=== PATIENT | female | born 1950 | race African-American/Black ===

== ENCOUNTER 2020-03-25 10:47 | Outpatient (REF) | payer OTHER, SELFPAY ==
--- NOTE | 2020-03-25 10:57 | XR_ITS ---
EXAMINATION: XR ELBOW, RIGHT CLINICAL INFORMATION: Fall. COMPARISON: None. TECHNIQUE: AP, lateral, and oblique views of the right elbow. FINDINGS: No visible acute fracture or dislocation. Joint spaces are maintained. Mild spurring from the medial humeral epicondyle. No significant joint effusion. XR/XR elbow RT min 3V IMPRESSION: No radiographic evidence of discrete acute fracture.
[2020-03-25 15:06] LABS: Alanine Aminotransferase 26 U/L (0-31); Albumin Level 4.7 g/dL (3.5-5.0); Alkaline Phosphatase 120 U/L (39-117); Anion Gap 14 (12-20); Aspartate Amino Transferase 25 U/L (5-31); Bilirubin Total 0.5 mg/dL (0.0-1.0); Blood Urea Nitrogen 10 mg/dL (9-16); Calcium 8.6 mg/dL (8.4-10.2); Carbon Dioxide 28 mmol/L (22-29); Chloride 104 mmol/L (96-108); Estimated Glomerular Filt Rate > 60; Glucose Random 82 mg/dL (60-115); Potassium 4.7 mmol/l (3.3-5.1); Sodium 141 mmol/L (135-145); Total Protein 7.5 g/dL (6.5-8.0)
[2020-03-25 15:20] LABS: TSH reflex Free T4 0.11 mIU/mL (0.32-4.0)
[2020-03-25 15:53] LABS: Free T4 (Free Thyroxine) 1.41 ng/dL (0.71-1.85)
== END 2020-03-25 10:48 | disposition home or self-care (01) ==
LOC: HO.HMGCLDS 10:47
PROVIDERS: PCP Nurse Practitioner Family; Visit Provider Nurse Practitioner Family
DX: E03.9 Hypothyroidism, unspecified (principal); W19.XXXA Unspecified fall, initial encounter
CPT/HCPCS: 73080; 80053; 84439; 84443

== ENCOUNTER 2020-06-05 10:11 | Outpatient (REF) | payer OTHER, SELFPAY ==
[2020-06-05 12:24] LABS: TSH reflex Free T4 0.29 uIU/mL (0.32-4.0)
[2020-06-05 13:09] LABS: Free T4 (Free Thyroxine) 0.89 ng/dL (0.71-1.85)
== END 2020-06-05 10:12 | disposition home or self-care (01) ==
LOC: HO.HMGCLDS 10:11
PROVIDERS: PCP Nurse Practitioner Family; Visit Provider Nurse Practitioner Family
DX: E03.9 Hypothyroidism, unspecified (principal)
CPT/HCPCS: 36415; 84439; 84443

== ENCOUNTER 2020-06-17 13:57 | Outpatient (REF) | payer OTHER, SELFPAY ==
--- NOTE | ~2020-06-17 | XR_ITS ---
EXAMINATION: XR CHEST CLINICAL INFORMATION: R06.02 - Shortness of breath COMPARISON: None TECHNIQUE: 2 views of the chest were obtained. FINDINGS: The heart is within limits of normal size. There is even distribution pulmonary vascularity with coarsening of the bronchiolar markings. The lateral view suggests mild blunting of the posterior costophrenic sulci, suspicious for trace effusion. The lateral costophrenic sulci are clear. There is no lobar or segmental airspace consolidation. The hilar and mediastinal contours are unremarkable. Bony structures show plate and screws overlying lower cervical spine consistent with prior anterior cervical fusion. XR/XR chest 2V IMPRESSION: 1. Even distribution vascularity with mild coarsening bronchovascular markings and borderline effusions. Likely mild pulmonary venous congestion. 2. No airspace consolidation or groundglass opacity.
[2020-06-17 16:31] LABS: MANUAL DIFF FLAG NO
[2020-06-17 16:34] LABS: Basophils Percent Auto 0.1 % (0-2); Eosinophils Absolute Auto 0.4 X10*3/uL (0.0-0.4); Eosinophils Percent Auto 2.1 % (0-4); Hematocrit 36.5 % (37-47); Hemoglobin 11.5 g/dl (12.0-16.0); Imm Gran Abs Auto 0.16 X10*3/uL (0.00-0.03); Imm Gran Pct Auto 0.8 % (0.0-0.4); Lymphocytes Absolute Auto 2.7 X10*3/uL (1.2-4.9); Lymphocytes Percent Auto 13.7 % (20-40); Mean Corpuscular HGB Conc 31.5 g/dl (31.0-35.0); Mean Corpuscular Hemoglobin 27.1 pg (27.0-33.0); Mean Corpuscular Volume 86.1 fL (80-98); Mean Platelet Volume 9.9 fL (9.4-12.3); Monocytes Absolute Auto 0.8 X10*3/uL (0.1-1.2); Monocytes Percent Auto 4.2 % (2-11); Neutrophils Absolute Auto 15.5 X10*3/uL (2.0-8.3); Neutrophils Percent Auto 79.1 % (45-73); Platelet Count 302 X10*3/uL (160-400); Red Blood Count 4.24 X10*6/uL (4.20-5.50); Red Cell Distribution Width 14.3 % (11.0-16.0); White Blood Count 19.6 X10*3/uL (4.8-10.8)
[2020-06-17 16:47] LABS: D Dimer 451 NG/ML
[2020-06-17 16:58] LABS: Anion Gap 13 (12-20); Blood Urea Nitrogen 14 mg/dL (9-16); Calcium 8.5 mg/dL (8.4-10.2); Carbon Dioxide 25 mmol/L (22-29); Chloride 106 mmol/L (96-108); Estimated Glomerular Filt Rate > 60; Glucose Random 97 mg/dL (60-115); Sodium 140 mmol/L (135-145)
[2020-06-17 17:02] LABS: B Type Natriuretic Peptide 37 pg/mL (<100); Troponin-I High Sensitivity < 3.5 ng/L (<3.5-17.0)
== END 2020-06-17 13:58 | disposition home or self-care (01) ==
LOC: HO.HMGCX 13:57
PROVIDERS: PCP Nurse Practitioner Family; Visit Provider Nurse Practitioner Family
DX: R06.02 Shortness of breath (principal)
CPT/HCPCS: 36415; 71046; 80048; 83880; 84484; 85025; 85379

== ENCOUNTER 2020-06-17 13:57 | Outpatient (REF) | payer OTHER, SELFPAY | END 2020-06-17 13:58 | disposition home or self-care (01) | LOC: HO.LAB 13:57 | PROVIDERS: Visit Provider Nurse Practitioner Family | DX: R06.02 Shortness of breath (principal); Z20.822 Contact with and (suspected) exposure to COVID-19 | CPT/HCPCS: 36415; U0003; U0005 ==

== ENCOUNTER 2020-06-28 07:47 | Outpatient (REF) | payer MEDICARE, SELFPAY ==
--- NOTE | ~2020-06-28 | MM_ITS ---
EXAMINATION: MM SCREENING DIGITAL BREAST TOMOSYNTHESIS, BILATERAL CLINICAL INFORMATION: Screening. Asymptomatic. The lifetime risk of breast cancer based on the Tyrer-Cuzick Model is 5.1%. COMPARISON: Mammography: August 28, 2019 TECHNIQUE: Digital breast tomosynthesis is performed in both the craniocaudal and mediolateral oblique views along with computer-aided detection (CAD). Synthesized 2D images are generated from the tomosynthesis. FINDINGS: The breasts are heterogeneously dense, which may obscure small masses (ACR BI-RADS breast composition Category c). There are no significant masses, abnormal calcifications, or other abnormalities. MM/MM tomosynthesis screening BI IMPRESSION: There are no significant changes from prior study. ASSESSMENT: BI-RADS 1: Negative RECOMMENDATION: Routine annual mammography screening. This patient's information was entered into a reminder system with a target due date for their next mammogram.
== END 2020-06-28 07:48 | disposition home or self-care (01) ==
LOC: HO.MAMMO 07:47
PROVIDERS: PCP Nurse Practitioner Family; Visit Provider Nurse Practitioner Family
DX: Z12.31 Encounter for screening mammogram for malignant neoplasm of breast (principal)
CPT/HCPCS: 77063; 77067

== ENCOUNTER 2020-07-15 09:00 | Outpatient (REF) | payer MEDICARE, SELFPAY ==
[2020-07-15 11:34] LABS: MANUAL DIFF FLAG NO
[2020-07-15 11:50] LABS: Eosinophils Absolute Auto 0.2 X10*3/uL (0.0-0.4); Eosinophils Percent Auto 3.2 % (0-4); Hematocrit 40.3 % (37-47); Hemoglobin 12.2 g/dl (12.0-16.0); Imm Gran Abs Auto 0.01 X10*3/uL (0.00-0.03); Imm Gran Pct Auto 0.2 % (0.0-0.4); Lymphocytes Absolute Auto 1.9 X10*3/uL (1.2-4.9); Lymphocytes Percent Auto 36.1 % (20-40); Mean Corpuscular HGB Conc 30.3 g/dl (31.0-35.0); Mean Corpuscular Hemoglobin 26.9 pg (27.0-33.0); Mean Platelet Volume 9.8 fL (9.4-12.3); Monocytes Absolute Auto 0.5 X10*3/uL (0.1-1.2); Monocytes Percent Auto 9.3 % (2-11); Neutrophils Absolute Auto 2.7 X10*3/uL (2.0-8.3); Neutrophils Percent Auto 51.2 % (45-73); Platelet Count 263 X10*3/uL (160-400); Red Blood Count 4.53 X10*6/uL (4.20-5.50); White Blood Count 5.3 X10*3/uL (4.8-10.8)
[2020-07-15 12:24] LABS: Alanine Aminotransferase 11 U/L (0-31); Albumin Level 4.1 g/dL (3.5-5.0); Alkaline Phosphatase 91 U/L (39-117); Anion Gap 17 (12-20); Aspartate Amino Transferase 14 U/L (5-31); Bilirubin Total 0.3 mg/dL (0.0-1.0); Blood Urea Nitrogen 11 mg/dL (9-16); Calcium 9.1 mg/dL (8.4-10.2); Carbon Dioxide 21 mmol/L (22-29); Chloride 106 mmol/L (96-108); Estimated Glomerular Filt Rate > 60; Glucose Random 120 mg/dL (60-115); Potassium 4.3 mmol/L (3.3-5.1); Sodium 140 mmol/L (135-145); Total Protein 6.9 g/dL (6.5-8.0)
== END 2020-07-15 09:01 | disposition home or self-care (01) ==
LOC: HO.HMGCLDS 09:00
PROVIDERS: PCP Nurse Practitioner Family; Visit Provider Nurse Practitioner Family
DX: Z01.818 Encounter for other preprocedural examination (principal)
CPT/HCPCS: 36415; 80053; 85025

== ENCOUNTER 2020-12-03 08:28 | Outpatient (REF) | payer OTHER, SELFPAY ==
[2020-12-03 11:52] LABS: Glucose Urine UA NEG (NEG); Leukocyte Esterase Urine 2+ (NEG); Nitrite Urine NEG (NEG); UACC Culture Trigger YES; Urine Blood NEG (NEG); Urine Ketones NEG (NEG); Urine Protein NEG (NEG-TRACE)
[2020-12-03 12:03] LABS: Appearance Urine HAZY; Color Urine YELLOW
[2020-12-03 12:19] LABS: Alanine Aminotransferase 15 U/L (0-31); Albumin Level 4.3 g/dL (3.5-5.0); Alkaline Phosphatase 94 U/L (39-117); Anion Gap 13 (12-20); Aspartate Amino Transferase 19 U/L (5-31); Bilirubin Total 0.4 mg/dL (0.0-1.0); Blood Urea Nitrogen 9 mg/dL (9-16); Calcium 9.5 mg/dL (8.4-10.2); Carbon Dioxide 28 mmol/L (22-29); Chloride 106 mmol/L (96-108); Cholesterol 185 mg/dL; Estimated Glomerular Filt Rate > 60; Glucose Fasting 101 mg/dL (60-99); HDL Cholesterol 43 mg/dL; LDL Cholesterol Calculated 126 mg/dl; Potassium 4.5 mmol/L (3.3-5.1); Sodium 142 mmol/L (135-145); Total Protein 6.8 g/dL (6.5-8.0); Triglycerides 81 mg/dL
[2020-12-03 12:27] LABS: Bacteria Urine 1+ /LPF; RBC Urine 0 /HPF (0); Squamous Epithelial Cell Urine 1+ /LPF
[2020-12-03 12:48] LABS: TSH reflex Free T4 0.44 uIU/mL (0.32-4.0)
== END 2020-12-03 08:29 | disposition home or self-care (01) ==
LOC: HO.HMGCLDS 08:28
PROVIDERS: PCP Nurse Practitioner Family; Visit Provider Nurse Practitioner Family
DX: Z00.00 Encounter for general adult medical examination without abnormal findings (principal)
CPT/HCPCS: 36415; 80053; 80061; 81001; 81003; 84443; 87086; 87147

== ENCOUNTER 2021-06-19 16:30 | Outpatient (REF) | payer MEDICARE, SELFPAY | END 2021-06-19 16:31 | disposition home or self-care (01) | LOC: HO.LNP 16:30 | PROVIDERS: Visit Provider Nurse Practitioner Family | DX: R30.0 Dysuria (principal) | CPT/HCPCS: 87086 ==

== ENCOUNTER 2021-08-14 10:58 | Outpatient (REF) | payer OTHER, SELFPAY ==
--- NOTE | ~2021-08-14 | XR_ITS ---
EXAMINATION: XR LUMBOSACRAL SPINE CLINICAL INFORMATION: Low back pain. COMPARISON: None TECHNIQUE: Three views of the lumbosacral spine. FINDINGS: The vertebral bodies and posterior elements are normal. The disc spaces are preserved and the vertebral alignment is normal. The paraspinal soft tissues are normal. XR/XR lumbar spine 2-3V IMPRESSION: Unremarkable lumbar spine.
--- NOTE | ~2021-08-14 | XR_ITS ---
EXAMINATION: XR SHOULDER, RIGHT CLINICAL INFORMATION: Right shoulder pain. COMPARISON: None TECHNIQUE: AP external rotation, Grashey, scapular Y, and axillary views of the right shoulder. FINDINGS: There is mild widening of the right acromio clavicular joint space with nonacute deformity of the distal right clavicle. There is normal alignment. The right glenohumeral joint is intact. The soft tissues are unremarkable. XR/XR shoulder RT min 2V IMPRESSION: Right acromioclavicular findings may be postsurgical with resection of the distal right clavicle and associated joint space widening. Grade 1 separation of indeterminate age cannot be excluded. Correlate with patient history and physical exam.
== END 2021-08-14 10:59 | disposition home or self-care (01) ==
LOC: HO.HMGCX 10:58
PROVIDERS: PCP Nurse Practitioner Family; Visit Provider Nurse Practitioner Family
DX: M54.50 Low back pain, unspecified (principal); M25.511 Pain in right shoulder; M79.606 Pain in leg, unspecified
CPT/HCPCS: 72100; 73030

== ENCOUNTER → 2021-11-10 09:29 | Outpatient (BNVA) | payer OTHER, SELFPAY | PROVIDERS: PCP Nurse Practitioner Family; Visit Provider Orthopaedic Surgery | DX: M54.12 Radiculopathy, cervical region (principal) | CPT/HCPCS: 99202 ==

== ENCOUNTER 2021-12-09 08:53 | Outpatient (REF) | payer OTHER, SELFPAY ==
--- NOTE | ~2021-12-09 | MM_ITS ---
EXAMINATION: MM SCREENING DIGITAL BREAST TOMOSYNTHESIS, BILATERAL CLINICAL INFORMATION: Screening. Asymptomatic. The lifetime risk of breast cancer based on the Tyrer-Cuzick Model is 2.5%. COMPARISON: Mammography: June 28, 2020 and June 28, 2019 TECHNIQUE: Digital breast tomosynthesis is performed in both the craniocaudal and mediolateral oblique views along with computer-aided detection (CAD). Synthesized 2D images are generated from the tomosynthesis. FINDINGS: The breasts are heterogeneously dense, which may obscure small masses (ACR BI-RADS breast composition Category c). There are no new significant masses, abnormal calcifications, or other abnormalities. On craniocaudal view there is again noted to be a circumscribed density about the central lateral aspect of the left breast. MM/MM tomosynthesis screening BI IMPRESSION: No significant changes from prior exam. ASSESSMENT: BI-RADS 2: Benign RECOMMENDATION: Routine annual mammography screening. This patient's information was entered into a reminder system with a target due date for their next mammogram.
== END 2021-12-09 08:54 | disposition home or self-care (01) ==
LOC: HO.MAMMO 08:53
PROVIDERS: PCP Nurse Practitioner Family; Visit Provider Nurse Practitioner Family
DX: Z12.31 Encounter for screening mammogram for malignant neoplasm of breast (principal)
CPT/HCPCS: 77063; 77067

== ENCOUNTER 2021-12-12 08:21 | Outpatient (REF) | payer OTHER, SELFPAY ==
[2021-12-12 11:15] LABS: Appearance Urine Clear; Color Urine Yellow; Glucose Urine UA Negative (Negative); Leukocyte Esterase Urine Trace (Negative); Nitrite Urine Negative (Negative); PH 7.5 (5.0-9.0); Urine Blood Negative (Negative); Urine Ketones Negative (Negative); Urine Protein Negative (Neg-Trace)
[2021-12-12 11:19] LABS: Bacteria Urine None Seen (None Seen); Hyaline Casts Urine 0-2 /LPF (0-2); Squamous Epithelial Cell Urine 0-2 /HPF (0-2); WBC Urine 0-5 /HPF (0-5)
[2021-12-12 11:26] LABS: MANUAL DIFF FLAG NO
[2021-12-12 11:31] LABS: Basophils Percent Auto 0.2 % (0-2); Eosinophils Absolute Auto 0.5 X10*3/uL (0.0-0.4); Eosinophils Percent Auto 7.6 % (0-4); Hematocrit 39.1 % (37.0-47.0); Hemoglobin 12.3 g/dl (12.0-16.0); Imm Gran Abs Auto 0.01 X10*3/uL (0.00-0.03); Imm Gran Pct Auto 0.2 % (0.0-0.4); Lymphocytes Absolute Auto 2.4 X10*3/uL (1.2-4.9); Lymphocytes Percent Auto 39.3 % (20-40); Mean Corpuscular HGB Conc 31.5 g/dl (31.0-35.0); Mean Corpuscular Hemoglobin 26.7 pg (27.0-33.0); Mean Platelet Volume 10.1 fL (9.4-12.3); Monocytes Absolute Auto 0.6 X10*3/uL (0.1-1.2); Monocytes Percent Auto 10.4 % (2-11); Neutrophils Absolute Auto 2.6 x10*3/uL (2.0-8.3); Neutrophils Percent Auto 42.3 % (45-73); Platelet Count 267 X10*3/uL (160-400); Red Cell Distribution Width 14.6 % (11.0-16.0); White Blood Count 6.1 X10*3/uL (4.8-10.8)
[2021-12-12 12:02] LABS: Alanine Aminotransferase 13 U/L (0-31); Albumin Level 4.3 g/dL (3.5-5.0); Alkaline Phosphatase 91 U/L (39-117); Anion Gap 16 (12-20); Aspartate Amino Transferase 15 U/L (5-31); Bilirubin Total 0.6 mg/dL (0.0-1.0); Blood Urea Nitrogen 16 mg/dL (9-16); Calcium 9.6 mg/dL (8.4-10.2); Carbon Dioxide 27 mmol/L (22-29); Chloride 104 mmol/L (96-108); Cholesterol 212 mg/dL; Estimated Glomerular Filt Rate 60; Glucose Fasting 102 mg/dL (60-99); HDL Cholesterol 55 mg/dL; LDL Cholesterol Calculated 142 mg/dl; Potassium 4.7 mmol/L (3.3-5.1); Sodium 142 mmol/L (135-145); Total Protein 6.9 g/dL (6.5-8.0); Triglycerides 76 mg/dL
[2021-12-12 12:07] LABS: TSH reflex Free T4 0.06 uIU/mL (0.32-4.0)
[2021-12-12 12:20] LABS: Folate 14.7 ng/mL (> or = 4.0); Vitamin B12 998 pg/mL (200-900)
[2021-12-12 12:50] LABS: Free T4 (Free Thyroxine) 1.12 ng/dL (0.71-1.85)
[2021-12-17 14:42] LABS: Vitamin B6 17.8 ng/mL (2.1-21.7)
== END 2021-12-12 08:22 | disposition home or self-care (01) ==
LOC: HO.HMGCLDS 08:21
PROVIDERS: PCP Nurse Practitioner Family; Visit Provider Nurse Practitioner Family
DX: Z00.00 Encounter for general adult medical examination without abnormal findings (principal); R41.3 Other amnesia; M25.551 Pain in right hip; M96.1 Postlaminectomy syndrome, not elsewhere classified
CPT/HCPCS: 36415; 80053; 80061; 81001; 82607; 82746; 84207; 84439; 84443; 85025; 99202

== ENCOUNTER → 2021-12-24 07:37 | Outpatient (BNVA) | payer OTHER, SELFPAY | PROVIDERS: PCP Nurse Practitioner Family; Referring Provider Nurse Practitioner Family; Visit Provider Internal Medicine | DX: R00.2 Palpitations (principal) | CPT/HCPCS: 93005; 99202 ==

== ENCOUNTER 2021-12-30 13:51 | Outpatient (REF) | payer OTHER, SELFPAY ==
--- NOTE | ~2021-12-30 | MM_ITS ---
EXAMINATION: BONE DENSITOMETRY CLINICAL INDICATION: Osteoporosis. COMPARISON: Baseline BD dated 12/26/2019. TECHNIQUE: Using a [employer] DXA System (software version: 13.1) manufactured by [employer], dual-energy x-ray absorptiometry was performed of the lumbar spine and left hip. The images are of good technical quality. Summary results are attached. FINDINGS: AP SPINE L1-L4: Current: BMD 1.099 g/cm2, Z-score 0.1, T-score -0.7, normal, 0.7% increase from baseline (<5% change is not significant). Baseline: BMD 1.091 g/cm2. LEFT FEMUR, NECK: Current: BMD 0.702 g/cm2, Z-score -1.3, T-score -2.4, osteopenia. Baseline: BMD 0.682 g/cm2. LEFT FEMUR, TOTAL: Current: BMD 0.713 g/cm2, Z-score -1.5, T-score -2.3, osteopenia, 2.1% increase from baseline (<5% change is not significant). Baseline: BMD 0.698 g/cm2. IDENTIFIED RISK FACTORS: Early menopause, history of fracture (adult), hysterectomy, osteoporosis, rheumatoid arthritis, secondary osteoporosis. HISTORY OF FRACTURE: Lower leg. MEDICATIONS: Calcium, vitamin D, bisphosphonate. MM/XR DEXA axial skeleton IMPRESSION: 1. DIAGNOSIS: Osteopenia based on the lowest T-score value of -2.4 in the femoral neck applying World Health Organization criteria. 2. 10-YEAR FRACTURE RISK PREDICTION, FRAX: Major osteoporotic fracture (clinical spine, forearm, hip or shoulder) 15.4%. Hip fracture 3.8%. 3. Treatment Recommendations: NOF guidelines recommend consideration for treatment in postmenopausal women and men age 50 and older presenting with the following: -A hip or vertebral (clinical or morphometric) fracture. -T-score less than or equal to -2.5 at the femoral neck or spine after appropriate evaluation to exclude secondary causes. -Low bone mass at the hip or spine and a 10-year fracture probability by FRAX of greater than or equal to 3% for hip fracture or greater than or equal to 20% for major osteoporotic fracture based on the [place] adapted WHO algorithm. 4. Other Recommendations: All treatment decisions require clinical judgment and consideration of individual patient factors, including patient preferences, comorbidities, previous drug use, risk factors not captured in the FRAX model (e.g. frailty, falls, vitamin D deficiency, increased bone turnover, interval significant decline in bone density) and possible under or overestimation of fracture risk by FRAX. Additional medical evaluation for secondary cause of low bone mineral density may be appropriate. FUTURE SCAN RECOMMENDATION: People with diagnosed cases of osteoporosis or at high risk for fracture should have regular bone mineral density tests. For patients eligible for Medicare, routine testing is allowed once every 2 years. The testing frequency can be increased to one year for patients who have rapidly progressing disease, those who are receiving or discontinuing medical therapy to restore bone mass, or have additional risk factors.
== END 2021-12-30 13:52 | disposition home or self-care (01) ==
LOC: HO.MAMMO 13:51
PROVIDERS: PCP Nurse Practitioner Family; Visit Provider Nurse Practitioner Family
DX: Z13.820 Encounter for screening for osteoporosis (principal); M81.0 Age-related osteoporosis without current pathological fracture; Z78.0 Asymptomatic menopausal state
CPT/HCPCS: 77080

== ENCOUNTER → 2022-01-14 12:33 | Outpatient (REF) | payer OTHER, SELFPAY ==
--- NOTE | 2022-01-14 12:31 | HM_ITS ---
Conclusion: 1. Patient was monitored for total period of 3 days 2. Baseline was normal sinus rhythm with average heart of 98 beats per minute 3. Frequent sinus tachycardia noted with heart rate greater than 100 beats per minute 23% of the time 4. Rare ectopy noted 5. No significant pauses or bradycardia noted 6. No patient reported events MTDD
--- NOTE | 2022-01-14 12:31 | CA_ITS ---
Transthoracic Echocardiogram Patient (Last, First, Middle): Marie Mckenzie, Gender: Female Date of : 1950 Age: 71 Procedure Date: 01/14/2022 Procedure Type: Transthoracic Echocardiogram Location: OP Height: 157.48 cm Weight: 90.72 kg BSA: 1.91 m2 Heart Rate: 88 bpm BP: 132 / 68 mmHg Level Vial Grinder: STAN Referring MD: Magan Sun MD Rn Physician Office: Francois Cherry MD Symptoms: R00.2 - Palpitations Study Quality: Adequate ECG Rhythm: Sinus Conclusions: - 1. Normal LV systolic function with grade 1 diastolic dysfunction 2. Normal cardiac valvular Doppler 3. Normal RV systolic pressure 4. No gross pericardial effusion Findings Left Ventricle Normal left ventricular size, thickness, and systolic function. The visually estimated ejection fraction is between 60-65%. Spectral Doppler is indicative of an impaired relaxation filling pattern. E/E prime ratio is <8, consistent with normal filling pressures. Evidence suggests grade I (mild) diastolic dysfunction. Peak GLS is -17.9% within normal limits Right Ventricle Normal right ventricular cavity size and systolic function. Atria The left atrium is normal in size. There is no evidence of interatrial shunt. The right atrium is normal in size. Aortic Valve Normal aortic valve structure and function. There is no aortic valve stenosis. There is no aortic valve regurgitation. Mitral Valve Normal mitral valve structure and function. There is trace mitral valve regurgitation. There is no mitral valve stenosis. Pulmonic Valve The pulmonic valve is likely normal. Tricuspid Valve Normal tricuspid valve structure. There is trace tricuspid valve regurgitation. The right ventricular systolic pressure is normal. The right ventricular systolic pressure is 25 mmHg. Normal right atrial pressure. There is no evidence of pulmonary hypertension. Great Vessels All visible segments of the aorta are normal in size. The pulmonary artery was not well visualized. Venous The inferior vena cava is normal in size and collapses greater than 50% with inspiration. Pericardium/Pleural There is no evidence of pericardial effusion. Prior Study Comparison No prior study available for comparison. Measurements 2D Linear Measurements IVSd: 0.80 0.6-0.9/0.6-1.0 cm LVIDd: 4.95 3.9-5.3/4.2-5.9 cm LVIDd Index: 2.59 2.4-3.2/2.2-3.1 cm/m2 LVIDs: 2.57 2.0-3.6 cm LVPWd: 0.86 0.7-1.1 cm LA Diam: 3.30 2.7-3.8/3.0-4.0 cm LAIDs Index: 1.73 1.5-2.3 cm/m2 LV Mass: 174.35 67-162/88-224 g LV Mass Index: 91.29 43-95/49-115 g/m2 LVOT Diam: 2.00 3.0+(-)1.3 cm 2D Systolic Function EF 4C: 64.00 >55% Mitral Valve MV Pk E: 0.63 MV PK A: 0.62 MV Decel Time: 176.00 E/A: 1.00 E'Lateral: 6.96 E'Medial: 5.11 E/E' Med: 12.30 E/E' Lat: 9.10 PHT: 52.00 MVA PHT: 4.23 Decel [place]: 3.58 Aortic Valve AoV Pk David: 1.24 AoV Pk Grad: 6.00 LVOT LVOT Pk David: 1.06 LVOT Mn David: 0.78 LVOT VTI: 0.22 LVOT Pk Grad: 4.00 LVOT Mn Grad: 3.00 LVOT Diam: 2.00 LVOT Area: 3.14 Diastolic Function MV Pk E: 0.63 MV Pk A: 0.62 E/A: 1.00 E'Medial: 5.11 E/E' Med: 12.30 E' Laterial: 6.96 E/E' Lat: 9.10 Right Ventricle TAPSE (mm): 18.00 TVS' David: 15.50 Tricuspid Valve TR Pk David: 2.33 TR Pk Grad: 22.00 RA Press: 3.00 RVSP: 25.00 Great Vessels Aorta Sinus of Valsalva: 3.10 2.0-3.5 cm Ao Asc: 3.00 2.1-3.4 cm Pulmonary Veins Pulm Vein S/D 1.40 Pulmonary Valve PV Pk David: 1.35 Peak PV Grad: 7.00 Updated in Other Vendor System with Status of Final Francois Cherry MD electronically signed on 01/15/2022 4:23:57 PM with status of Final
== END ==
LOC: HO.CARD 12:33
PROVIDERS: PCP Nurse Practitioner Family; Visit Provider Internal Medicine
DX: R00.2 Palpitations (principal); G47.33 Obstructive sleep apnea (adult) (pediatric)
CPT/HCPCS: 93242; 93306; 93356; 95806

== ENCOUNTER 2022-01-15 11:38 | Outpatient (REF) | payer OTHER, SELFPAY ==
--- NOTE | ~2022-01-15 | XR_ITS ---
EXAMINATION: XR HIP, RIGHT CLINICAL INFORMATION: Right hip pain COMPARISON: None TECHNIQUE: Two views of the right hip. FINDINGS: Normal bony mineralization. No fracture, dislocation, destructive process. No hip joint narrowing or erosive change or chondrocalcinosis. Minor spurring superior lateral acetabular rim. Mild degenerative change lower right SI joint. XR/XR hip RT min 2V IMPRESSION: No hip joint narrowing or erosive change.
== END 2022-01-15 11:39 | disposition home or self-care (01) ==
LOC: HO.XRAY 11:38
PROVIDERS: PCP Nurse Practitioner Family; Visit Provider Internal Medicine
DX: M25.551 Pain in right hip (principal)
CPT/HCPCS: 73502

== ENCOUNTER 2022-02-12 07:59 | Outpatient (REF) | payer OTHER, SELFPAY ==
[2022-02-12 12:01] LABS: TSH reflex Free T4 1.43 uIU/mL (0.32-4.0)
[2022-02-12 16:26] LABS: Appearance Urine Clear; Color Urine Yellow; Glucose Urine UA Negative (Negative); Leukocyte Esterase Urine Trace (Negative); Nitrite Urine Negative (Negative); PH 8.5 (5.0-9.0); UMIC TRIGGER UACC YES; Urine Blood Negative (Negative); Urine Ketones Negative (Negative); Urine Protein Negative (Neg-Trace)
[2022-02-12 16:39] LABS: Bacteria Urine None Seen (None Seen); Hyaline Casts Urine 0-2 /LPF (0-2); RBC Urine 0-2 /HPF (0-2); Squamous Epithelial Cell Urine 0-2 /HPF (0-2); WBC Urine 0-5 /HPF (0-5)
== END 2022-02-12 08:00 | disposition home or self-care (01) ==
LOC: HO.HMGCLDS 07:59
PROVIDERS: PCP Nurse Practitioner Family; Visit Provider Nurse Practitioner Family
DX: E03.9 Hypothyroidism, unspecified (principal)
CPT/HCPCS: 36415; 81001; 84443

== ENCOUNTER → 2022-02-17 13:02 | Outpatient (BNVA) | payer OTHER, SELFPAY | PROVIDERS: PCP Nurse Practitioner Family; Referring Provider Nurse Practitioner Family; Visit Provider Nurse Practitioner Family | DX: R00.2 Palpitations (principal); R00.0 Tachycardia, unspecified; G47.33 Obstructive sleep apnea (adult) (pediatric); E03.9 Hypothyroidism, unspecified | CPT/HCPCS: 99212 ==

== ENCOUNTER 2022-03-12 11:08 | Outpatient (REF) | payer OTHER, SELFPAY ==
--- NOTE | ~2022-03-12 | XR_ITS ---
EXAMINATION: XR CHEST CLINICAL INFORMATION: J20.9 - Acute bronchitis, unspecified COMPARISON: Chest radiographs 06/17/2020 TECHNIQUE: 2 views of the chest were obtained. FINDINGS: The lungs are clear. The vascularity is normal. There is no airspace consolidation or groundglass opacity or effusion. No coarsening bronchiolar markings. Heart size normal. Hilar and mediastinal contours and bony structures are similar to prior exam. XR/XR chest 2V IMPRESSION: Lungs clear. No acute intrathoracic disease.
== END 2022-03-12 11:09 | disposition home or self-care (01) ==
LOC: HO.HMGCX 11:08
PROVIDERS: PCP Nurse Practitioner Family; Visit Provider Internal Medicine
DX: J20.9 Acute bronchitis, unspecified (principal)
CPT/HCPCS: 71046

== ENCOUNTER → 2022-03-30 11:07 | Outpatient (BNVA) | payer OTHER, SELFPAY | PROVIDERS: PCP Nurse Practitioner Family; Visit Provider Internal Medicine | DX: M47.812 Spondylosis without myelopathy or radiculopathy, cervical region (principal); M96.1 Postlaminectomy syndrome, not elsewhere classified; M53.3 Sacrococcygeal disorders, not elsewhere classified | CPT/HCPCS: 99212 ==

== ENCOUNTER 2022-04-29 06:05 | Outpatient (REF) | payer OTHER, SELFPAY ==
--- NOTE | ~2022-04-29 | FL_ITS ---
EXAMINATION: XR FLUOROSCOPY WITH IMAGES CLINICAL INFORMATION: Spondylosis without myelopathy or radiculopathy cervical region. COMPARISON: None. TECHNIQUE: Fluoroscopy Supervised By: Dr. Ilir Mtz. Fluoroscopy Time: 0.1 minutes. Cumulative Dose: 0.860 mGy. DAP: 0.133 Gycm2. Images: 6. FINDINGS: [place] and contrast seen about the right facets of C2-C3 through C4-C5. Patient is status post previous anterior discectomy and surgical fusion at what appears to be the C6-C7 levels. FL/FL guidance in treatment room IMPRESSION: Intraoperative fluoroscopy provided for pain management procedure.
== END 2022-04-29 06:06 | disposition home or self-care (01) ==
LOC: CF 06:05
PROVIDERS: Visit Provider Internal Medicine
DX: M47.812 Spondylosis without myelopathy or radiculopathy, cervical region (principal)
CPT/HCPCS: 64490; 64491; 64492

== ENCOUNTER → 2022-05-01 10:00 | Outpatient (BNVA) | payer OTHER, SELFPAY | PROVIDERS: PCP Nurse Practitioner Family; Visit Provider Internal Medicine | DX: M47.812 Spondylosis without myelopathy or radiculopathy, cervical region (principal) | CPT/HCPCS: 99212 ==

== ENCOUNTER 2022-05-06 06:10 | Outpatient (REF) | payer OTHER, SELFPAY ==
--- NOTE | ~2022-05-06 | FL_ITS ---
EXAMINATION: XR FLUOROSCOPY WITH IMAGES CLINICAL INFORMATION: Sacrococcygeal disorders. COMPARISON: None. TECHNIQUE: Fluoroscopy Supervised By: Michelle Quintero. Fluoroscopy Time: 0.1 minutes. Cumulative Dose: 12.2 mGy. DAP: 1.07 Gycm2. Images: 2. FINDINGS: There are 2 digital images obtained revealing needle positioned along the right SI joint. On the visualized, images no bony abnormalities seen. FL/FL guidance in treatment room IMPRESSION: Fluoroscopy was provided to referrer for pain management.
== END 2022-05-06 06:11 | disposition home or self-care (01) ==
LOC: CF 06:10
PROVIDERS: Visit Provider Internal Medicine
DX: M53.3 Sacrococcygeal disorders, not elsewhere classified (principal)
CPT/HCPCS: 27096; J1020; J1040

== ENCOUNTER → 2022-05-08 11:48 | Outpatient (BNVA) | payer OTHER, SELFPAY | PROVIDERS: PCP Nurse Practitioner Family; Visit Provider Internal Medicine | DX: M53.3 Sacrococcygeal disorders, not elsewhere classified (principal); Z98.890 Other specified postprocedural states | CPT/HCPCS: Q3014 ==

== ENCOUNTER → 2022-05-26 12:32 | Outpatient (BNVA) | payer OTHER, SELFPAY | PROVIDERS: PCP Nurse Practitioner Family; Referring Provider Nurse Practitioner Family; Visit Provider Nurse Practitioner Family | DX: R00.2 Palpitations (principal); R00.0 Tachycardia, unspecified; G47.33 Obstructive sleep apnea (adult) (pediatric) | CPT/HCPCS: 99212 ==

== ENCOUNTER 2022-07-16 08:46 | Outpatient (REF) | payer OTHER, SELFPAY ==
[2022-07-16 11:23] LABS: MANUAL DIFF FLAG NO
[2022-07-16 11:45] LABS: Basophils Percent Auto 0.2 % (0-2); Eosinophils Absolute Auto 0.2 X10*3/uL (0.0-0.4); Eosinophils Percent Auto 3.8 % (0-4); Hematocrit 39.4 % (37.0-47.0); Hemoglobin 12.3 g/dl (12.0-16.0); Imm Gran Abs Auto 0.01 X10*3/uL (0.00-0.03); Imm Gran Pct Auto 0.2 % (0.0-0.4); Lymphocytes Absolute Auto 2.2 X10*3/uL (1.2-4.9); Lymphocytes Percent Auto 41.3 % (20-40); Mean Corpuscular HGB Conc 31.2 g/dl (31.0-35.0); Mean Corpuscular Hemoglobin 26.8 pg (27.0-33.0); Mean Corpuscular Volume 85.8 fL (80.0-98.0); Mean Platelet Volume 9.9 fL (9.4-12.3); Monocytes Absolute Auto 0.5 X10*3/uL (0.1-1.2); Monocytes Percent Auto 9.8 % (2-11); Neutrophils Absolute Auto 2.3 x10*3/uL (2.0-8.3); Neutrophils Percent Auto 44.7 % (45-73); Platelet Count 231 X10*3/uL (160-400); Red Blood Count 4.59 X10*6/uL (4.20-5.50); Red Cell Distribution Width 14.3 % (11.0-16.0); White Blood Count 5.2 X10*3/uL (4.8-10.8)
[2022-07-16 11:54] LABS: Appearance Urine Clear; Color Urine Yellow; Glucose Urine UA Negative (Negative); Leukocyte Esterase Urine Small (1+) (Negative); Nitrite Urine Negative (Negative); UMIC TRIGGER UACC YES; Urine Blood Trace (Negative); Urine Ketones Negative (Negative); Urine Protein Negative (Neg-Trace)
[2022-07-16 12:15] LABS: Alanine Aminotransferase 12 U/L (0-31); Albumin Level 4.4 g/dL (3.5-5.0); Alkaline Phosphatase 101 U/L (39-117); Anion Gap 14 (12-20); Aspartate Amino Transferase 16 U/L (5-31); Bilirubin Total 0.6 mg/dL (0.0-1.0); Blood Urea Nitrogen 17 mg/dL (9-16); Calcium 9.5 mg/dL (8.4-10.2); Carbon Dioxide 27 mmol/L (22-29); Chloride 107 mmol/L (96-108); Cholesterol 245 mg/dL; Estimated Glomerular Filt Rate > 60; Glucose Fasting 97 mg/dL (60-99); HDL Cholesterol 54 mg/dL; LDL Cholesterol Calculated 172 mg/dl; Potassium 4.6 mmol/L (3.3-5.1); Sodium 143 mmol/L (135-145); Total Protein 6.7 g/dL (6.5-8.0); Triglycerides 99 mg/dL
[2022-07-16 12:28] LABS: Bacteria Urine None Seen (None Seen); Hyaline Casts Urine 0-2 /LPF (0-2); RBC Urine 0-2 /HPF (0-2); Squamous Epithelial Cell Urine 0-2 /HPF (0-2); UACC Culture Trigger YES; WBC Urine 0-5 /HPF (0-5)
[2022-07-16 12:37] LABS: TSH reflex Free T4 1.51 uIU/mL (0.32-4.0)
== END 2022-07-16 08:47 | disposition home or self-care (01) ==
LOC: HO.HMGCLDS 08:46
PROVIDERS: PCP Nurse Practitioner Family; Visit Provider Nurse Practitioner Family
DX: E66.9 Obesity, unspecified (principal); E03.9 Hypothyroidism, unspecified; R82.90 Unspecified abnormal findings in urine
CPT/HCPCS: 36415; 80053; 80061; 81001; 84443; 85025; 87086

== ENCOUNTER → 2022-08-05 12:40 | Day surgery (SDC) | payer OTHER, SELFPAY ==
--- NOTE | ~2022-08-05 | FL_ITS ---
EXAMINATION: XR FLUOROSCOPY WITH IMAGES CLINICAL INFORMATION: Cervical medical branches RFA right side COMPARISON: Fluoroscopic spot views cervical spine 04/29/2022. TECHNIQUE: Fluoroscopy Supervised By: Dr. Ilir Mtz. Fluoroscopy Time: 0.4 minutes. Cumulative Dose: 6.51 mGy. DAP: 0.647 Gycm2. Images: 2. FINDINGS: There are spinal needles overlying the right lateral masses cervical spine approximately C3, C4, C5. FL/FL guidance in OR IMPRESSION: Fluoroscopy for pain management procedure.
[2022-08-05 12:52] VITALS: BMI 37.5
[2022-08-05 14:35] VITALS: BP 146/91; PULSE 72; RESP 16; TEMP 36.3; O2SAT 99
--- NOTE | 2022-08-05 14:39 | P.BOP_ITS ---
Brief Operative Note Date of Service: 08/05/22 Pre-op diagnosis: Cervical Spondylosis Post-op diagnosis: same Procedure: Right C3, C4, C5 medial branch radiofrequency ablation Implants: None Surgeon: Ilir Mtz MD Anesthesia: local Was an [employer] Representative used for this Procedure?: No Estimated blood loss (mL): 2 Pathology: none sent Condition: stable Disposition: same day
--- NOTE | 2022-08-05 14:39 | MHC.SHP ---
Pre-Procedural Eval Section A Date of Service: 08/20/22 The patient is an INPATIENT: No Changes since office visit: Yes Patient answered all questions The History & Physical has been completed within 30 days and I have reviewed it.: No Section B Chief Complaint: Spondylosis without myelopathy or radiculopathy, Relevant Family History (Specify if Yes): No Relevant Social History: None Present Medications: see Short Stay Collaborative assessment Medical History: No relevant PMH History of Previous Operations: No relevant previous surgery Allergies: Allergies Allergy/AdvReac Type Severity Reaction Status Date / Time tramadol Allergy Itching Verified 08/05/22 12:52 Review of Systems Sugical H&P ROS: Negative: Constitution, Cardiovascular and Respiratory Exam Surgical H&P Exam: Normal: HEENT, Normal: Heart and Normal: Lungs Plan Diagnosis/Plan: Unchanged I have reviewed the history and physical and performed a pertinent physical examination on my patient. No changes have occurred unless specified. Time Spent With Patient Time: Total time managing care of this patient today ____ minutes.
--- NOTE | 2022-08-05 14:39 | W.PM.OPN ---
Operative Note Operative Note Date of Service: 08/05/22 Narrative: Radiofrequency lesioning cervical medial branch nerves, Right C3, C4 and C5 After obtaining written consent, pre-procedure blood pressure and heart rate were stable and recorded in the nursing record. The patient was placed in the prone position. The?cervical?area was prepped with chloraprep and draped in sterile fashion. The skin over the target for each medial branch nerve was anesthetized with 0.75% lidocaine. An 18 gauge radiofrequency cannula was advanced to each target site under fluoroscopic guidance. No paresthesias were elicited with needle placement and aspiration was negative for heme and CSF. Impedences were verified under 600 ohms. Sensory testing (50 Hz) and then motor testing (2 Hz) confirmed needle placement at each site within the appropriate voltage thresholds. Each site was injected with 1 ml 2% preservative-free lidocaine. Radiofrequency lesioning was performed for 90 seconds at 80 deg Celcius. The needle was removed, skin cleansed and a sterile bandage was applied. The patient tolerated the procedure well and no complications were encountered. Following the procedure the patient's vital signs were stable. The patient was discharged home in good condition with post-procedural instructions. Time Out: Immediately prior to the procedure, the following was verbally confirmed that there is a signed consent form and that the correct patient, planned procedure, site and side are consistent with documentation and that necessary equipment and/or blood products are available prior to the start of the case. Complications: none EBL: <5 cc
[2022-08-05 14:46] VITALS: BP 154/96; PULSE 74; RESP 16; O2SAT 98
== END | disposition home or self-care (01) ==
PROVIDERS: PCP Nurse Practitioner Family; Visit Provider Internal Medicine
PROC: (CPT 64633; principal; 2022-08-05 14:20)
DX: M47.812 Spondylosis without myelopathy or radiculopathy, cervical region (principal); I10 Essential (primary) hypertension; M81.0 Age-related osteoporosis without current pathological fracture; E78.5 Hyperlipidemia, unspecified; F41.1 Generalized anxiety disorder; G43.909 Migraine, unspecified, not intractable, without status migrainosus; Z79.899 Other long term (current) drug therapy; Z88.8 Allergy status to other drugs, medicaments and biological substances; Z87.891 Personal history of nicotine dependence; Z98.890 Other specified postprocedural states
CPT/HCPCS: 64633; 64634

== ENCOUNTER → 2022-08-31 09:40 | Outpatient (BNVA) | payer OTHER, SELFPAY | PROVIDERS: PCP Nurse Practitioner Family; Referring Provider Nurse Practitioner Family; Visit Provider Physician Assistant Surgical ==

== ENCOUNTER → 2022-09-04 08:15 | Outpatient (BNVA) | payer OTHER, SELFPAY | PROVIDERS: PCP Nurse Practitioner Family; Visit Provider Internal Medicine | DX: M53.3 Sacrococcygeal disorders, not elsewhere classified (principal); M25.511 Pain in right shoulder | CPT/HCPCS: 99212 ==

== ENCOUNTER 2022-10-19 09:36 | Outpatient (AMB) | payer OTHER, SELFPAY ==
--- NOTE | 2022-10-19 10:11 | MHC.OFFVISWM ---
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 SWL Allergies tramadol Allergy (Verified 10/19/22 10:12) Itching Medication List - Last Reconciled 10/19/22 by YOUNG Goins alendronate 70 mg PO QWEEK 90 days atenolol 50 mg PO DAILY atorvastatin 80 mg PO BEDTIME [chair lift daily use NS] cholecalciferol (vitamin D3) 25 mcg PO DAILY 90 days cyclobenzaprine 5 mg PO TID diclofenac sodium 1% (Arthritis Pain (diclofenac)) 4 grams topical QID PRN 30 days divalproex ER 250 mg PO DAILY duloxetine 60 mg PO DAILY 90 days hospital bed daily hydroxyzine HCl 25 mg PO DAILY 30 days levothyroxine 112 mcg PO QAM meclizine 12.5 mg PO BID PRN pantoprazole 40 mg PO DAILY rizatriptan take 1 tab at onset of headache; if no relief may repeat 1 tab after at least 2 hrs; max = 3 tabs/24 hr PO trazodone 100 mg PO BEDTIME HPI HPI Comments History of Present Illness Details Pt is here to start the [facility] Weight Management surgical weight loss program. Her goal is to lose weight and achieve a healthy lifestyle as well as to improve, if not resolve, obesity related medical conditions. Current weight is 199.6 with a BMI of 36.5.? She has tried multiple methods of weight loss including fad diets (atkins), diet pills, and medically supervised diets without permanent results. She lives with . She does not work. She wakes at: 4-5am, and goes to bed at 9pm.? Dinner is at 3pm. Breakfast: coffee 7:30am- with powdered creamer and Splenda, sometimes a few crackers and an egg AM snack: none Lunch: 12pm- vegetable with meat, or rice and beans PM snack: none Dinner: fruit, or a few crackers After dinner: none Other snacks: occasional milkshake with skim milk Liquids: Crystal Light Alcohol/marijuana/tobacco intake: none Exercise: has a gym membership but has a lot of neck/back pain so hasn't been going GERD score: 7 TRIP score: 6 ESS score: 6 QOL score: 96 PFSH Medical History (Updated 10/19/22 @ 10:58 by YOUNG Goins) Anxiety Dyslipidemia Essential hypertension Gastritis Hypothyroidism Migraines Osteoporosis Surgical History History of carpal tunnel surgery History of section History of nasal surgery History of neck surgery History of shoulder surgery History of surgery Family History Father Cancer of prostate Mother HTN (hypertension) Maternal Grandmother Stroke Asthma Brother Substance use disorder Social History Housing: Apartment Alcohol intake: never Patient Tobacco Use Status: Former Tobacco user Years Smoked: 45 years ago e-Cigarette/Vaping Use: Never Used Second Hand Smoke Exposure: No Current occupational status: retired Cognitive needs: No Hearing needs: No Vision needs: No Physical Exam Vital Signs: Last Vital Signs Temp 96.4 F L 10/19/22 10:12 Pulse 90 10/19/22 10:12 BP 109/67 10/19/22 10:12 Pulse Ox 95 10/19/22 10:12 Oxygen Delivery Method Room Air 10/19/22 10:12 BMI result Body Mass Index 36.5 Const General: cooperative, comfortable and no acute distress Resp Effort & Inspection: normal respiratory effort Auscultation: clear to auscultation bilaterally Cardio Rate: regular rate Rhythm: regular rhythm GI Other: soft, nontender, nondistended, incisions well healed, no hernias or masses, +BS Extrem General: Yes no calf tenderness and No edema Assessment & Plan Assessment & Plan (1) Obesity: Code(s): E66.9 - Obesity, unspecified (2) Obstructive sleep apnea: Comment: Borderline MANDEEP on sleep study 01/23/2022 Code(s): G47.33 - Obstructive sleep apnea (adult) (pediatric) (3) Hypothyroid: Code(s): E03.9 - Hypothyroidism, unspecified (4) Chronic pain: Code(s): G89.29 - Other chronic pain (5) Hypothyroidism: Code(s): E03.9 - Hypothyroidism, unspecified (6) Migraines: Code(s): G43.909 - Migraine, unspecified, not intractable, without status migrainosus (7) Dyslipidemia: Code(s): E78.5 - Hyperlipidemia, unspecified (8) Anxiety: Code(s): F41.9 - Anxiety disorder, unspecified (9) Essential hypertension: Code(s): I10 - Essential (primary) hypertension Plan This is a 72 yo female who will start our SWL program to prepare for bariatric surgery.? Blood work, h pylori , CXR, ECG, Abd US and UGI have been ordered. She is being scheduled for RD and BH initial consultations. She will start SWL classes and watch at least # 1 and # 2 before her next appointment. ? Adequate sleep of 7-8 hours per night discussed ?? Pt will purchase body composition analyzer scale (Harsh Garcia or Erick recommended) and check weight weekly. The best time to do this is first thing in the morning after going to the bathroom. 1. Nutritional counseling. Pure Protein shake- HALF scoop in 8oz nonfat or 1% milk at 8am-10am Lunch at 12pm: 6 forks of protein and 6 forks of salad/vegetables. Meal to include lean meat (beef, fish, pork, turkey, chicken), cooked vegetables or a salad with olive oil and/or fruits (berries, pears, apples, kiwi). Pure Protein bar at 2pm-4pm Pure Protein shake- HALF scoop in 8oz nonfat or 1% milk at 6pm-8pm Avoid salt, breads, potatoes, rice, pasta, desserts.? Try to drink 64 oz of water daily and avoid soda and juices. ?2. Each shake would be drunk slowly, like coffee in a period of 2 hours. ?3. Cut each bar in 4 pieces and eat each piece in 30 min? to make each bar last 2 hours. ?4. I emphasized the importance of measuring accurately the food portion and measure it carefully when serving the food on the plate ?5. The meal portions include 6 full-size forks of meat and 6 full-size forks of salad. You always eat the meat portion but you can replace up to half of the forks of salad/vegetables with rice, potatoes or pasta, or a fruit? if you like. The less you do it the better weight loss will be. ?6. One full-size fork is what can be scooped on the fork without falling aside and not what can be bit with the fork. Use regular forks like those you find in a typical restaurant. ?7.? Please send me weight measurements as soon as possible and then once a week. Always include your diet and exercise plan. Alternatively come weekly at the office for weight checks and send me the measurements. ?8. For now, start home workout videos. Sit and Be Fit, Monica Weir, or Marlyn Taveras. Try to complete one video each day, at least 15-20 minutes long. If you cannot complete the entire video while standing, you can sit down and finish the videos with arms and legs. When you can return to the gym, ideas for cardio exercises: 9. Start elliptical with an incline of 2.0 and resistance of 4.0. Increase resistance by 1 every 3 min to a max resistance of 10.0, and repeat cycles for 300 calories. Alternatively, start treadmill with a speed of 2.0 and incline of 0, increasing incline by 1 every 3 minutes to the highest comfortable level then decrease in the same fashion.? Repeat process to a goal of 300 calories.? Goal of 2000 calories burned or more weekly.? Tracking calories is essential. 10. Alternatively start walking outside daily, tracking calories with a goal of 300 calories per day, daily. You can download the [employer] which can track you time, distance and calories while walking outside.? You press start in the terrance when you start and then stop when you are finished.?? 11.? It is important to avoid and for at least 18 months postoperatively and it has been discussed at the information session 12. Goal is to lose at least 1.5-2lbs per week 13. Goal to lose 10% of your weight before surgery, which is about 19 lbs. Ultimate weight goal: 180 lbs before surgery Patient is obese and is not considered stable at this time. I spent a total of 60 minutes reviewing/updating records, examining the patient and counseling the patient on weight management as detailed above. Orders: Orders Vitamin B12 and Folate Today E66.9 - Obesity, unspecified, Z01.810 - Encounter for preprocedural cardiovascular examination Comprehensive Met. Panel Today E66.9 - Obesity, unspecified, Z01.810 - Encounter for preprocedural cardiovascular examination C Reactive Protein Today E66.9 - Obesity, unspecified, Z01.810 - Encounter for preprocedural cardiovascular examination Ferritin Today E66.9 - Obesity, unspecified, Z01.810 - Encounter for preprocedural cardiovascular examination Hemoglobin A1c Today E66.9 - Obesity, unspecified, Z01.810 - Encounter for preprocedural cardiovascular examination Insulin Today E66.9 - Obesity, unspecified, Z01.810 - Encounter for preprocedural cardiovascular examination IRON PROFILE Today E66.9 - Obesity, unspecified, Z01.810 - Encounter for preprocedural cardiovascular examination Lipid Panel Today E66.9 - Obesity, unspecified, Z01.810 - Encounter for preprocedural cardiovascular examination PTHI Today E66.9 - Obesity, unspecified, Z01.810 - Encounter for preprocedural cardiovascular examination TSH reflex Free T4 Today E66.9 - Obesity, unspecified, Z01.810 - Encounter for preprocedural cardiovascular examination Vitamin A Today E66.9 - Obesity, unspecified, Z01.810 - Encounter for preprocedural cardiovascular examination Vitamin B1 Today E66.9 - Obesity, unspecified, Z01.810 - Encounter for preprocedural cardiovascular examination Vitamin D 25-OH Total Today E66.9 - Obesity, unspecified, Z01.810 - Encounter for preprocedural cardiovascular examination Zinc Today E66.9 - Obesity, unspecified, Z01.810 - Encounter for preprocedural cardiovascular examination ECG 12 lead EKG Today E66.9 - Obesity, unspecified, Z01.810 - Encounter for preprocedural cardiovascular examination FL upper GI w air Today E66.9 - Obesity, unspecified, Z01.810 - Encounter for preprocedural cardiovascular examination Complete Blood Count Auto Diff Today E66.9 - Obesity, unspecified, Z01.810 - Encounter for preprocedural cardiovascular examination H Pylori Breath Test Today E66.9 - Obesity, unspecified, Z01.810 - Encounter for preprocedural cardiovascular examination US abdomen comp w elastography Today E66.9 - Obesity, unspecified, Z01.810 - Encounter for preprocedural cardiovascular examination XR chest 2V Today E66.9 - Obesity, unspecified, Z01.810 - Encounter for preprocedural cardiovascular examination Referrals Behavioral Health Referral E66.9 - Obesity, unspecified, Z01.810 - Encounter for preprocedural cardiovascular examination Nutrition/Dietitian Referral E66.9 - Obesity, unspecified, Z01.810 - Encounter for preprocedural cardiovascular examination Coding Level of Care Code New Pt Level 5 (80358) Diagnoses Obesity E66.9 Obstructive sleep apnea G47.33 Hypothyroid E03.9 Chronic pain G89.29 Migraines G43.909 Dyslipidemia E78.5 Anxiety F41.9 Essential hypertension I10
[2022-10-19 10:12] VITALS: BP 109/67; PULSE 90; TEMP 35.8; O2SAT 95; BMI 36.5
== END 2022-10-19 11:05 | disposition home or self-care (01) ==
PROVIDERS: PCP Nurse Practitioner Family; Visit Provider Physician Assistant Surgical
DX: E66.9 Obesity, unspecified (principal); Z68.36 Body mass index [BMI] 36.0-36.9, adult; G47.33 Obstructive sleep apnea (adult) (pediatric); E03.9 Hypothyroidism, unspecified; G89.29 Other chronic pain; G43.909 Migraine, unspecified, not intractable, without status migrainosus; E78.5 Hyperlipidemia, unspecified; F41.9 Anxiety disorder, unspecified; I10 Essential (primary) hypertension
CPT/HCPCS: 99205

== ENCOUNTER → 2022-10-19 10:09 | Outpatient (BNVA) | payer OTHER, SELFPAY | PROVIDERS: PCP Nurse Practitioner Family; Visit Provider Physician Assistant Surgical | DX: Z01.810 Encounter for preprocedural cardiovascular examination (principal); E66.9 Obesity, unspecified; I10 Essential (primary) hypertension; E03.9 Hypothyroidism, unspecified; E78.5 Hyperlipidemia, unspecified; G47.33 Obstructive sleep apnea (adult) (pediatric); G89.29 Other chronic pain; G43.909 Migraine, unspecified, not intractable, without status migrainosus; F41.9 Anxiety disorder, unspecified; Z68.36 Body mass index [BMI] 36.0-36.9, adult | CPT/HCPCS: 99202 ==

== ENCOUNTER 2022-10-23 10:01 | Outpatient (REF) | payer OTHER, SELFPAY ==
--- NOTE | ~2022-10-23 | XR_ITS ---
EXAMINATION: XR CHEST CLINICAL INFORMATION: Obesity. COMPARISON: None available. TECHNIQUE: 2 views of the chest were obtained. FINDINGS: No significant abnormality is noted involving the heart, lungs, mediastinum, bony thorax or soft tissues. ACDF hardware noted overlying the lower cervical spine. XR/XR chest 2V IMPRESSION: Unremarkable examination.
--- NOTE | 2022-10-23 10:05 | ECG_ITS ---
Test Reason : E66.01 Blood Pressure : / mmHG Vent. Rate : 075 BPM Atrial Rate : 075 BPM P-R Int : 176 ms QRS Dur : 086 ms QT Int : 420 ms P-R-T Axes : 056 -08 026 degrees QTc Int : 469 ms Normal sinus rhythm Normal ECG No previous ECGs available Referred By: Romelia Garrido Electronically Signed By:DONATO BRIGHT MD
[2022-10-23 10:29] LABS: MANUAL DIFF FLAG NO
[2022-10-23 11:39] LABS: Appearance Urine Clear; Color Urine Yellow; Glucose Urine UA Negative (Negative); Leukocyte Esterase Urine Moderate (2+) (Negative); Nitrite Urine Negative (Negative); PH 5.5 (5.0-9.0); UMIC TRIGGER UACC YES; Urine Blood Negative (Negative); Urine Ketones Negative (Negative); Urine Protein Negative (Neg-Trace)
[2022-10-23 11:42] LABS: Basophils Percent Auto 0.2 % (0-2); Eosinophils Absolute Auto 0.2 X10*3/uL (0.0-0.4); Eosinophils Percent Auto 2.7 % (0-4); Hematocrit 40.6 % (37.0-47.0); Imm Gran Abs Auto 0.01 X10*3/uL (0.00-0.03); Imm Gran Pct Auto 0.2 % (0.0-0.4); Lymphocytes Absolute Auto 2.2 X10*3/uL (1.2-4.9); Lymphocytes Percent Auto 37.9 % (20-40); Mean Corpuscular Hemoglobin 27.2 pg (27.0-33.0); Mean Corpuscular Volume 84.9 fL (80.0-98.0); Monocytes Absolute Auto 0.6 X10*3/uL (0.1-1.2); Monocytes Percent Auto 10.6 % (2-11); Neutrophils Absolute Auto 2.8 x10*3/uL (2.0-8.3); Neutrophils Percent Auto 48.4 % (45-73); Platelet Count 250 X10*3/uL (160-400); Red Blood Count 4.78 X10*6/uL (4.20-5.50); Red Cell Distribution Width 13.6 % (11.0-16.0); White Blood Count 5.9 X10*3/uL (4.8-10.8)
[2022-10-23 11:43] LABS: Bacteria Urine None Seen (None Seen); Hyaline Casts Urine 0-2 /LPF (0-2); RBC Urine 0-2 /HPF (0-2); UACC Culture Trigger YES
[2022-10-23 12:01] LABS: Folate 13.3 ng/mL (> or = 4.0); Vitamin B12 660 pg/mL (200-900)
[2022-10-23 12:03] LABS: Alanine Aminotransferase 31 U/L (0-31); Albumin Level 4.5 g/dL (3.5-5.0); Alkaline Phosphatase 127 U/L (39-117); Anion Gap 15 (12-20); Aspartate Amino Transferase 30 U/L (5-31); Bilirubin Total 0.9 mg/dL (0.0-1.0); Blood Urea Nitrogen 22 mg/dL (9-16); C Reactive Protein 0.36 mg/dL (< or = 0.50); Calcium 10.4 mg/dL (8.4-10.2); Carbon Dioxide 27 mmol/L (22-29); Chloride 103 mmol/L (96-108); Cholesterol 122 mg/dL; Estimated Glomerular Filt Rate > 60; Ferritin 91 ng/mL (10-250); Glucose Random 93 mg/dL (60-115); HDL Cholesterol 52 mg/dL; Iron 112 mcg/dL (30-160); LDL Cholesterol Calculated 60 mg/dl; Percent Iron Saturation 39 % (15-50); Potassium 4.2 mmol/L (3.3-5.1); Sodium 141 mmol/L (135-145); TSH reflex Free T4 1.54 uIU/mL (0.32-4.0); Total Iron Binding Capacity 287 mcg/dL (228-428); Total Protein 7.6 g/dL (6.5-8.0); Triglycerides 54 mg/dL; Unsaturated Iron Binding 175 ug/dL; Vitamin D 25-OH Total 46.3 ng/mL (>30)
[2022-10-23 12:20] LABS: Insulin 10 uU/mL (2-29)
[2022-10-23 12:38] LABS: Estimated Average Glucose 120 mg/dL; Hemoglobin A1c % 5.8 %
[2022-10-26 15:24] LABS: Calcium (PTHI) 9.6 mg/dL (8.6-10.4); PTHI 58 pg/mL (16-77)
[2022-10-28 06:43] LABS: Zinc 81 mcg/dL (60-130)
[2022-10-29 09:33] LABS: Vitamin B1 10 nmol/L (8-30)
[2022-10-29 19:23] LABS: Vitamin A 42 mcg/dL (38-98)
== END 2022-10-23 10:02 | disposition home or self-care (01) ==
LOC: HO.XRAY 10:01
PROVIDERS: Absent Provider Nurse Practitioner Family; PCP Nurse Practitioner Family; Visit Provider Physician Assistant Surgical
DX: Z01.810 Encounter for preprocedural cardiovascular examination (principal); E66.9 Obesity, unspecified; E78.5 Hyperlipidemia, unspecified; R82.90 Unspecified abnormal findings in urine; E63.9 Nutritional deficiency, unspecified
CPT/HCPCS: 36415; 71046; 80053; 80061; 81001; 82306; 82607; 82728; 82746; 83036; 83525; 83540; 83970; 84425; 84443; 84590; 84630; 85025; 86140; 87086; 93005

== ENCOUNTER → 2022-10-23 10:05 | Outpatient (BNV) | payer OTHER, SELFPAY | PROVIDERS: Absent Provider Nurse Practitioner Family; PCP Nurse Practitioner Family; Visit Provider Internal Medicine Cardiovascular Disease | DX: Z01.810 Encounter for preprocedural cardiovascular examination (principal); E66.9 Obesity, unspecified | CPT/HCPCS: 93010 ==

== ENCOUNTER 2022-11-03 09:40 | Outpatient (AMB) | payer OTHER, SELFPAY ==
--- NOTE | 2022-11-03 09:27 | A.OFFVIS_ITS ---
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 Connected with [employer] [phone]# but pt declined Reason for consult elevated BMI Diet Assmnt Details Pt recognizes she is not consistent with her nutrition plan. She reports sometimes the timing of her shakes/bars is off because she will be at an appt with her and unable to eat. Breakfast: 6 slices garcia and coffee 2 Pure protein bars 1 shake premade piece of watermelon small amount tuna with cucumbers SWL online classes: completed , reviewed, scored well. Dietary counseling reduction Who buys your food self Who prepares/cooks your food self Diagnosis Nutrition problem #1 overweight/obesity As related to (etiology) #1 excess energy intake and physical inactivity As evidenced by (sign/symptom) #1 high BMI Monitoring/Goals Nutrition problem monitoring total energy intake, level of knowledge/skill, total PRO intake, total CHO intake and weight Outcome progress progressing Learning/Education Readiness to learn good Stages of change action Educational materials provided Yes Most Recent Diabetes Results: Cholesterol 122 mg/dL 10/23/22 HDL Cholesterol 52 mg/dL 10/23/22 Triglycerides 54 mg/dL 10/23/22 Creatinine 0.86 mg/dL (0.5-1.4) 10/23/22 Blood Urea Nitrogen 22 mg/dL (9-16) H 10/23/22 Sodium 141 mmol/L (135-145) 10/23/22 Potassium 4.2 mmol/L (3.3-5.1) 10/23/22 Chloride 103 mmol/L (96-108) 10/23/22 Carbon Dioxide 27 mmol/L (22-29) 10/23/22 Calcium 10.4 mg/dL (8.4-10.2) H 10/23/22 AST 30 U/L (5-31) 10/23/22 ALT 31 U/L (0-31) 10/23/22 Total Protein 7.6 g/dL (6.5-8.0) 10/23/22 Albumin 4.5 g/dL (3.5-5.0) 10/23/22 [facility] Medical History (Updated 10/19/22 @ 10:58 by YOUNG Goins) Anxiety Dyslipidemia Essential hypertension Gastritis Hypothyroidism Migraines Osteoporosis Surgical History History of carpal tunnel surgery History of section History of nasal surgery History of neck surgery History of shoulder surgery History of surgery Family History Father Cancer of prostate Mother HTN (hypertension) Maternal Grandmother Stroke Asthma Brother Substance use disorder Social History Housing: Apartment Alcohol intake: never Patient Tobacco Use Status: Former Tobacco user Years Smoked: 45 years ago e-Cigarette/Vaping Use: Never Used Second Hand Smoke Exposure: No Current occupational status: retired Cognitive needs: No Hearing needs: No Vision needs: No Assessment & Plan Assessment & Plan (1) Obesity (BMI 30-39.9): Code(s): E66.9 - Obesity, unspecified Patient Instructions: Educated on lean sources of protein. She will continue her nutrition plan. Will be seen again on 12/04 at 9am Telehealth Telehealth Location of provider rendering services: practice address Location of patient: address on file Patient Identification confirmed using: Name, : Yes Telehealth method: voice only Patient verbally consented to treatment: Yes Patient verbally consented to billing insurance company: Yes Patient informed of any privacy concerns related to visit: Yes Minutes spent on Phone/Video with Pt.: 30 Coding Level of Care Code Nutr Indiv Intake (27613) Diagnoses Obesity (BMI 30-39.9) E66.9 Time Spent (min) 30
== END 2022-11-03 09:51 | disposition home or self-care (01) ==
LOC: HO.HBS 09:40
PROVIDERS: PCP Nurse Practitioner Family; Visit Provider Dietitian, Registered
DX: E66.9 Obesity, unspecified (principal)

== ENCOUNTER → 2022-11-03 09:40 | Outpatient (BNVA) | payer OTHER, SELFPAY | PROVIDERS: PCP Nurse Practitioner Family; Visit Provider Dietitian, Registered | DX: Z01.818 Encounter for other preprocedural examination (principal); E66.9 Obesity, unspecified; Z71.3 Dietary counseling and surveillance | CPT/HCPCS: 97802 ==

== ENCOUNTER 2022-11-10 10:41 | Outpatient (REF) | payer OTHER, SELFPAY ==
[2022-11-11 18:38] LABS: H Pylori Breath Test Negative (Negative)
== END 2022-11-10 10:42 | disposition home or self-care (01) ==
LOC: HO.LNP 10:41
PROVIDERS: PCP Nurse Practitioner Family; Visit Provider Physician Assistant Surgical
DX: Z01.810 Encounter for preprocedural cardiovascular examination (principal); Z11.0 Encounter for screening for intestinal infectious diseases; E66.9 Obesity, unspecified; I10 Essential (primary) hypertension; E78.5 Hyperlipidemia, unspecified; G47.33 Obstructive sleep apnea (adult) (pediatric); E03.9 Hypothyroidism, unspecified; G89.29 Other chronic pain; Z68.34 Body mass index [BMI] 34.0-34.9, adult
CPT/HCPCS: 83013; 99211; 99212

== ENCOUNTER → 2022-11-10 10:41 | Outpatient (AMB) | payer OTHER, SELFPAY ==
--- NOTE | 2022-11-10 11:12 | A.OFFVIS_ITS ---
Intake VS Expanded 11/10/22 11:25 Height 5 ft 2 in Weight 190 lb BMI 34.7 BP 126/80 Blood Pressure Location Rt brachial Blood Pressure Position Sitting Pulse 78 Pulse Source Pulse Oximeter Temp 96.8 F Temperature Source Temporal Artery Scan Pulse Oximetry 97 Oxygen Delivery Method Room Air Body Fat 83.2 Body Fat Percentage 43.7 Free Fat Mass 107.2 Muscle Mass 101.6 Visceral Mass 14.0 Water Mass 75.4 BMR 1,484 Intake Visit Reasons: (OV) F/U SWL+ H.Pylori Allergies tramadol Allergy (Verified 10/19/22 10:12) Itching Medication List - Last Reconciled 11/10/22 by YOUNG Goins alendronate 70 mg PO QWEEK 90 days atenolol 50 mg PO DAILY atorvastatin 80 mg PO BEDTIME [chair lift daily use NS] cholecalciferol (vitamin D3) 25 mcg PO DAILY 90 days cyclobenzaprine 5 mg PO TID diclofenac sodium 1% (Arthritis Pain (diclofenac)) 4 grams topical QID PRN 30 days divalproex ER 250 mg PO DAILY duloxetine 60 mg PO DAILY 90 days hospital bed daily hydroxyzine HCl 25 mg PO DAILY 30 days levothyroxine 112 mcg PO QAM meclizine 12.5 mg PO BID PRN pantoprazole 40 mg PO DAILY rizatriptan take 1 tab at onset of headache; if no relief may repeat 1 tab after at least 2 hrs; max = 3 tabs/24 hr PO trazodone 100 mg PO BEDTIME HPI HPI Comments History of Present Illness Details The patient is a pleasant 72 year old female who returns to the clinic for pre-operative surgical weight loss management.? They were last seen in the office on 10/19/2022, recorded weight at that time was 199.6 pounds, with a BMI of 36.5.? Today's weight is 190.4 pounds and BMI is 34.8.? There has been a weight loss of 9.2 pounds since initiating the surgical weight loss program on 10/19/2022 with a total body weight loss of 4.61%. Pre op work up completed as follows: SWL classes:? 11/17 BH appts: scheduled 11/20? ?? RD appts: seen 11/03, needs followup 12/04 Labs: 10/23 H. pylori: done today CXR: 10/23- unremarkable EK/14- NSR, pt has also been followed by cardiology in the past ABD U/S: scheduled 12/10 UGI: scheduled 12/10 The patient reports she is using magnesium Calm to help with constipation. Current meal plan includes: Pure Protein shake- HALF scoop in 8oz nonfat or 1% milk at 8am-10am Lunch at 12pm: 6 forks of protein and 6 forks of salad/vegetables. Meal to incl ude lean meat (beef, fish, pork, turkey, chicken), cooked vegetables or a salad with olive oil and/or fruits (berries, pears, apples, kiwi). Pure Protein bar at 2pm-4pm Pure Protein shake- HALF scoop in 8oz nonfat or 1% milk at 6pm-8pm Has been using some Premier protein premade shakes occasionally. Current exercise plan includes: limited due to pain, walking is difficult; has done some chair yoga [facility] Medical History (Updated 10/19/22 @ 10:58 by YOUNG Goins) Anxiety Dyslipidemia Essential hypertension Gastritis Hypothyroidism Migraines Osteoporosis Surgical History History of carpal tunnel surgery History of section History of nasal surgery History of neck surgery History of shoulder surgery History of surgery Family History Father Cancer of prostate Mother HTN (hypertension) Maternal Grandmother Stroke Asthma Brother Substance use disorder Social History Housing: Apartment Alcohol intake: never Patient Tobacco Use Status: Former Tobacco user Years Smoked: 45 years ago e-Cigarette/Vaping Use: Never Used Second Hand Smoke Exposure: No Current occupational status: retired Cognitive needs: No Hearing needs: No Vision needs: No Assessment & Plan Assessment & Plan (1) Obesity: Code(s): E66.9 - Obesity, unspecified (2) Essential hypertension: Code(s): I10 - Essential (primary) hypertension (3) Dyslipidemia: Code(s): E78.5 - Hyperlipidemia, unspecified (4) Obstructive sleep apnea: Comment: Borderline MANDEEP on sleep study 01/23/2022 Code(s): G47.33 - Obstructive sleep apnea (adult) (pediatric) (5) Hypothyroid: Code(s): E03.9 - Hypothyroidism, unspecified (6) Chronic pain: Code(s): G89.29 - Other chronic pain Plan Pt does not desire any meal plan changes today. Recommended trying Sit to Be Fit videos in addition to chair yoga, for more exercise options. H. pylori performed today. Reviewed upcoming appts with pt. RTC in 2 weeks for first visit with Dr. Fernandez, then subsequent visit with me. Patient is obese and is not considered stable at this time. I spent a total of 30 minutes reviewing/updating records, examining the patient and counseling the patient on weight management as detailed above. Coding Level of Care Code Est Pt Level 4 (38068) Diagnoses Obesity E66.9 Essential hypertension I10 Dyslipidemia E78.5 Obstructive sleep apnea G47.33 Hypothyroid E03.9 Chronic pain G89.29
[2022-11-10 11:25] VITALS: BP 126/80; PULSE 78; TEMP 36; O2SAT 97; BMI 34.7
== END ==
PROVIDERS: PCP Nurse Practitioner Family; Visit Provider Physician Assistant Surgical
DX: E66.9 Obesity, unspecified (principal); I10 Essential (primary) hypertension; E78.5 Hyperlipidemia, unspecified; G47.33 Obstructive sleep apnea (adult) (pediatric); E03.9 Hypothyroidism, unspecified; G89.29 Other chronic pain
CPT/HCPCS: 99214

== ENCOUNTER 2022-11-16 12:41 | Outpatient (AMB) | payer OTHER, SELFPAY ==
--- NOTE | 2022-11-16 12:43 | A.OFFVIS_ITS ---
Intake VS Expanded 11/16/22 12:52 Height 5 ft 2 in Weight 189 lb 6.4 oz BMI 34.6 BP 111/70 Blood Pressure Location Rt brachial Blood Pressure Position Sitting Pulse 81 Pulse Source Pulse Oximeter Temp 96.9 F Temperature Source Tympanic Pulse Oximetry 95 Oxygen Delivery Method Room Air Body Fat 81.2 Body Fat Percentage 42.8 Free Fat Mass 108.2 Muscle Mass 102.8 Visceral Mass 13.0 Water Mass 76.2 BMR 1,494 Intake Visit Reasons: (OV) F/U SWL (Ref. Romelia) Allergies tramadol Allergy (Verified 11/16/22 12:57) Itching HPI HPI Comments History of Present Illness Details The patient is a 72-year-old woman with a lifelong struggle with obesity who entered the surgical weight loss program on October 19 with a weight of 199.6 lb/BMI 36.5. The EMR documents the patient requested an shot grinder operator, but when offered, she declined noting that she would request an shot grinder operator if she did not understand. She also requested the need for an shot grinder operator be removed from her record for future appointments. She is congratulated on her weight loss and today presents at 189.4 lb/BMI 34.7 which represents a 10.2 lb weight-loss, just over 50% to goal weight of 180 lbs. She does note that prior cervical disc/spine disease limits her activity due to pain. She notes that weight gain started after her last and she has tried numerous fad diets and portion control to lose weight. She is always regained weight and as she has gotten older, her arthritis related issues including her C-spine impact on her ability to exercise Obesity related comorbidities include hypertension, lipid disorder and obstructive sleep apnea. GERD 7 TRIP 6 ESS 6 QOL 96 Pre op work up completed as follows: SWL classes:? 11/17 BH appts: scheduled 11/20? ?? RD appts: seen 11/03, needs followup 12/04 Labs: 10/23 H. pylori: done today CXR: 10/23- unremarkable EK/14- NSR, pt has also been followed by cardiology in the past ABD U/S: scheduled 12/10 UGI: scheduled 12/10 [facility] Medical History Anxiety Dyslipidemia Essential hypertension Gastritis Hypothyroidism Migraines Osteoporosis Surgical History History of carpal tunnel surgery History of section History of nasal surgery History of neck surgery History of shoulder surgery History of surgery Family History Father Cancer of prostate Mother HTN (hypertension) Maternal Grandmother Stroke Asthma Brother Substance use disorder Social History Housing: Apartment Alcohol intake: never Patient Tobacco Use Status: Former Tobacco user Years Smoked: 45 years ago e-Cigarette/Vaping Use: Never Used Second Hand Smoke Exposure: No Current occupational status: retired Cognitive needs: No Hearing needs: No Vision needs: No Review of Systems Const All systems reviewed & are unremarkable except as noted in HPI and below Reports as per HPI Physical Exam The patient is non-toxic & in good spirits NC/AT, PERRLA, EOMI Mood, affect & judgment all appear appropriate Sclera anicteric conjunctiva pink and moist Oropharynx is clear with no aphthous ulcers, Mallampati class 4, mucous membranes moist Neck is supple with no masses, adenopathy or bruits Heart is regular, normal S1-S2 no rubs or murmurs Lungs are clear and equal anteriorly with no audible wheezing, rubs or dullness to percussion Abdomen is obese with no demonstrable hernias. No HSM, rebound, rigidity, guarding, masses or bruits are present. Rectal exam is deferred Skin has good turgor and is free of rashes Extremities free of cyanosis clubbing edema Results Reviewed Results Reviewed: Labs 10/23/2022 Hemoglobin 13.0, normal indices and normal iron studies, white blood cell count 5.9, platelet count 250K BUN 22, creatinine 0.86, electrolytes within normal parameters Hemoglobin A1c 5.8 LFTs show an elevation of alkaline phosphatase at 127, otherwise within normal parameters Helicobacter pylori is negative MVI: Vit A, B1, B12, folate, Vit D & A all WNL TSH, PTH WNL Diagnostic imaging Chest x-ray NAD Abd U/S pending 12/10/22 UGI pending 12/10/22 Assessment & Plan Assessment & Plan (1) BMI 34.0-34.9,adult: Code(s): Z68.34 - Body mass index [BMI] 34.0-34.9, adult (2) Essential hypertension: Code(s): I10 - Essential (primary) hypertension (3) Dyslipidemia: Code(s): E78.5 - Hyperlipidemia, unspecified (4) Obesity: Code(s): E66.9 - Obesity, unspecified (5) Obstructive sleep apnea: Comment: Borderline MANDEEP on sleep study 01/23/2022 Code(s): G47.33 - Obstructive sleep apnea (adult) (pediatric) (6) Hypothyroid: Code(s): E03.9 - Hypothyroidism, unspecified (7) Cervical postlaminectomy syndrome: Code(s): M96.1 - Postlaminectomy syndrome, not elsewhere classified (8) Right hip pain: Code(s): M25.551 - Pain in right hip (9) Low back pain radiating to lower extremity: Code(s): M54.50 - Low back pain, unspecified; M79.606 - Pain in leg, unspecified (10) Hypothyroidism: Code(s): E03.9 - Hypothyroidism, unspecified Plan The patient is congratulated on her ongoing healthy lifestyle changes and resultant weight loss. Patient notes that she is tolerating her current diet and no changes were made to the diet. Using a teaching loan officer assistant and a gastric balloon model, I reviewed the options of continued medical weight loss, gastric balloon at her request and options of laparoscopic sleeve gastrectomy verses laparoscopic gastric bypass. The fact that there is some debate offering bariatric surgery to patients over age 65 was also reviewed with the patient. The importance of proper diet, specifically high-protein/hi fiber and low-carbohydrate/low-fat to augment surgical weight loss or medical weight loss was discussed with the patient and apparently understood. The patient's questions seemed to be satisfactorily answered and she wants to proceed in the surgical weight loss program with a goal of laparoscopic sleeve gastrectomy. I think the patient is an excellent candidate for laparoscopic sleeve gastrectomy and explained about the possible need for hiatal hernia repair, intraoperative endoscopy as well as the unlikely but possible risks of bleeding, need for another procedure, possible need for a blood transfusion and the risk of related to on for seen complications such as DVT/PE or unrecognized comorbidities. Patient seemed understand her options. The risk of weight regain if maladaptive eating and sedentary behavior resume was also reviewed and apparently understood. She will continue in the program and follow-up with me in the 1st week of December. The fact that her weight loss will be slower given her limited activity was discussed and apparently understood. Typical perioperative and postoperative course was discussed and her questions seemed to be satisfactorily answered. Again, she declined an shot grinder operator in stated that she would like to proceed. Patient will follow-up with Romelia as previously arranged and see me after diagnostic imaging is complete in the beginning of December. Coding Level of Care Code Est Pt Level 4 (61848) Diagnoses BMI 34.0-34.9,adult Z68.34 Essential hypertension I10 Dyslipidemia E78.5 Obesity E66.9 Obstructive sleep apnea G47.33 Hypothyroid E03.9 Cervical postlaminectomy syndrome M96.1 Right hip pain M25.551 Low back pain radiating to lower extremity M54.50; M79.606
[2022-11-16 12:52] VITALS: BP 111/70; PULSE 81; TEMP 36.1; O2SAT 95; BMI 34.6
== END 2022-11-16 13:41 | disposition home or self-care (01) ==
PROVIDERS: PCP Nurse Practitioner Family; Visit Provider Surgery
DX: E66.9 Obesity, unspecified (principal); Z68.34 Body mass index [BMI] 34.0-34.9, adult; I10 Essential (primary) hypertension; E78.5 Hyperlipidemia, unspecified; G47.33 Obstructive sleep apnea (adult) (pediatric); E03.9 Hypothyroidism, unspecified; M96.1 Postlaminectomy syndrome, not elsewhere classified; M25.551 Pain in right hip; M54.50 Low back pain, unspecified; M79.606 Pain in leg, unspecified
CPT/HCPCS: 99214

== ENCOUNTER → 2022-11-16 12:41 | Outpatient (BNVA) | payer OTHER, SELFPAY | PROVIDERS: PCP Nurse Practitioner Family; Visit Provider Surgery | DX: E66.9 Obesity, unspecified (principal); G47.33 Obstructive sleep apnea (adult) (pediatric); E03.9 Hypothyroidism, unspecified; E78.5 Hyperlipidemia, unspecified; M96.1 Postlaminectomy syndrome, not elsewhere classified; M25.551 Pain in right hip; M54.50 Low back pain, unspecified; M79.606 Pain in leg, unspecified; I10 Essential (primary) hypertension; Z68.34 Body mass index [BMI] 34.0-34.9, adult | CPT/HCPCS: 99212 ==

== ENCOUNTER 2022-11-30 09:58 | Outpatient (AMB) | payer OTHER, SELFPAY ==
[2022-11-30 10:25] VITALS: BP 122/78; PULSE 85; O2SAT 95; BMI 34.7
--- NOTE | 2022-11-30 10:25 | MHC.PC.OV ---
Vital Signs 11/30/22 10:25 Height 5 ft 2 in Weight 190 lb BMI 34.7 BP 122/78 Blood Pressure Location Lt brachial Position Sitting Pulse 85 Pulse Source Pulse Oximeter Pulse Oximetry (%) 95 Oxygen Delivery Method Room Air Intake Visit Reasons: annual PE Allergies tramadol Allergy (Verified 11/30/22 10:37) Itching Tobacco use date assessed: 11/30/22 Fall risk assessment: No Falls in past year Last assessed Fall Risk: 11/30/22 Dental Screening Dental Screen Date: 11/30/22 Did you have a dental visit in the last 12 months?: No Did you have a dental problem in the last 6 months where you did not have access to dental care?: No Was dental information given to patient?: Patient has dentist HPI annual PE HPI Details Pt is here for a PE. Labs were already performed. Colon screen is up to date. Will repeat bone density due to hx of osteoporosis. Last vitamin D was WNL. Pt will schedule her own mammo. ON LICENSE OF [facility] Medical History Anxiety Dyslipidemia Essential hypertension Gastritis Hypothyroidism Migraines Osteoporosis Surgical History History of carpal tunnel surgery History of section History of nasal surgery History of neck surgery History of shoulder surgery History of surgery Family History Father Cancer of prostate Mother HTN (hypertension) Maternal Grandmother Stroke Asthma Brother Substance use disorder Social History Housing: Apartment Alcohol intake: never Patient Tobacco Use Status: Former Tobacco user Years Smoked: 45 years ago e-Cigarette/Vaping Use: Never Used Second Hand Smoke Exposure: No Current occupational status: retired Cognitive needs: No Hearing needs: No Vision needs: No Questionnaire Thrive Questionnaire Date Thrive assessed: 08/14/21 JUANA-7 AMB Questionnaire JUANA-7 Date JUANA - 7 assessed: 08/14/21 Source: Developed by Drs. Jerrod Jain, Sally Davis, Sixto Noel and colleagues, with an educational rosalee from [employer]. Review of Systems Const Denies chills and Denies fever(s) Eyes Denies blurry vision ENT Denies vertigo, Denies dizziness and Denies sore throat Card Denies chest pain at rest, Denies chest pain with activity, Denies diaphoresis, Denies dyspnea and Denies dyspnea on exertion Resp Denies cough, Denies dyspnea, Denies dyspnea on exertion and Denies wheezing GI Denies abdominal pain, Denies melena, Denies hematochezia, Denies constipation, Denies diarrhea and Denies loose stools Denies hematuria Musc Denies numbness and Denies tingling Skin/Breast Denies lesions Neuro Denies vertigo, Denies dizziness, Denies numbness and Denies tingling Psych Denies anxiety, Denies depression, Denies homicidal ideation, Denies suicidal ideation and Denies other (substance abuse) Aller/Immun Denies wheezing Physical exam (Primary Care) Vital Signs: Last Vital Signs Pulse 85 11/30/22 10:25 BP 122/78 11/30/22 10:25 Pulse Ox 95 11/30/22 10:25 Oxygen Delivery Method Room Air 11/30/22 10:25 BMI result Body Mass Index 34.7 Tobacco/Smoking Status: Tobacco use Status Tobacco use date assessed 11/30/22 11/30/22 10:39 Patient Tobacco Use Status Former Tobacco user 11/30/22 10:25 e-Cigarette/Vaping Use Never Used 11/30/22 10:25 Thrive Assessment: Date of Thrive Assessment Date Thrive assessed 08/14/21 11/30/22 10:25 Const General: cooperative Nutritional Appearance: obese Orientation/consciousness: patient oriented x3 HENMO Head: Yes normal to inspection, Yes normocephalic and Yes atraumatic Ears: TM's normal bilaterally Eyes General: appearance normal, both eyes and all related structures Alignment and Position: alignment normal and position normal Neck Neck: Yes normal visual inspection and Yes no lymphadenopathy Thyroid: Thyroid normal Resp Effort & Inspection: normal respiratory effort Auscultation: clear to auscultation bilaterally Cardio Rate: regular rate Rhythm: regular rhythm Heart sounds: S1 normal heart sound present, S2 normal heart sound present and no murmurs GI Palpation (GI): Soft to palpation and nontender Auscultation: normal bowel sounds Skin Rashes: no rashes Neuro General: patient oriented x3, moves all extremities, no focal motor deficits and deep tendon reflexes 2+ bilaterally Romberg Test: Negative Psych Appearance: grossly normal Mental Status: mental status grossly normal Speech and movement: Normal speech and movement present Affect: normal affect Attitude: cooperative Thought process: Normal thought process present Thought content: Normal thought content present Insight: Good insight present (Psych) Judgement: Good judgement present (Psych) Assessment and Plan Assessment & Plan (1) Osteoporosis: Code(s): M81.0 - Age-related osteoporosis without current pathological fracture Plan: Bone density ordered (2) Physical exam: Code(s): Z00.00 - Encounter for general adult medical examination without abnormal findings Plan The patient agreed to the use of a medical unit secretary for this encounter. Scribed for YARON Ordoñez by Naomie Lua medical unit secretary, on 11/30/2022 at 10:40 EST. Orders: Orders XR DEXA axial skeleton Today M81.0 - Age-related osteoporosis without current pathological fracture AMB EKG-In Office Today Z00.00 - Encounter for general adult medical examination without abnormal findings Coding Level of Care Code Est Pt Prev Care >65y(33792) Diagnoses Osteoporosis M81.0 Physical exam Z00.00
== END 2022-11-30 11:58 | disposition home or self-care (01) ==
PROVIDERS: Visit Provider Nurse Practitioner Family
DX: M81.0 Age-related osteoporosis without current pathological fracture (principal); Z00.00 Encounter for general adult medical examination without abnormal findings
CPT/HCPCS: 99397

== ENCOUNTER 2022-12-04 09:17 | Outpatient (AMB) | payer OTHER, SELFPAY ==
--- NOTE | 2022-12-04 09:05 | A.OFFVIS_ITS ---
Intake VS Expanded 12/04/22 09:16 Height 5 ft 2 in Weight 184 lb BMI 33.7 Intake Visit Reasons: VIDEO F/U SWL Pooling Operator Required: No Allergies tramadol Allergy (Verified 11/30/22 10:37) Itching HPI Nutrition Presentation Details MARKETING CONTENT COORDINATOR weight 200# current 184# Pt took classes with the email: [email or web address] Pt declined the use of a translator and interpreter . Connected with Geraldine [employer] [id number] but pt declined Reason for consult elevated BMI Diet Assmnt Details Pt lacks consistency following diet recs. Last nutrition appointment patient reported eating 6 pieces of garcia for breakfast with her coffee. Today she states sometimes she does her shakes sometime she does not. Yesterday intake: 1/2 cup coffee with a few bites of tuna 1pm lunch: protein shake - now using Gold standard whey - cheaper option for her - is 24g protein /scoop 4:30pm pistachios 7pm yogurt [employer] triple Zero SWL online classes: completed , reviewed last appointment, scored well. Exercise: 20-30 minutes walking Dietary counseling reduction Who buys your food self Who prepares/cooks your food self Diagnosis Nutrition problem #1 overweight/obesity As related to (etiology) #1 excess energy intake and physical inactivity As evidenced by (sign/symptom) #1 high BMI Monitoring/Goals Nutrition problem monitoring total energy intake, level of knowledge/skill, total PRO intake, total CHO intake and weight Outcome progress verbalized understanding Learning/Education Readiness to learn good Stages of change contemplation Educational materials provided Yes Most Recent Diabetes Results: Cholesterol 122 mg/dL 10/23/22 HDL Cholesterol 52 mg/dL 10/23/22 Triglycerides 54 mg/dL 10/23/22 Creatinine 0.86 mg/dL (0.5-1.4) 10/23/22 Blood Urea Nitrogen 22 mg/dL (9-16) H 10/23/22 Sodium 141 mmol/L (135-145) 10/23/22 Potassium 4.2 mmol/L (3.3-5.1) 10/23/22 Chloride 103 mmol/L (96-108) 10/23/22 Carbon Dioxide 27 mmol/L (22-29) 10/23/22 Calcium 10.4 mg/dL (8.4-10.2) H 10/23/22 AST 30 U/L (5-31) 10/23/22 ALT 31 U/L (0-31) 10/23/22 Total Protein 7.6 g/dL (6.5-8.0) 10/23/22 Albumin 4.5 g/dL (3.5-5.0) 10/23/22 PFSH Medical History Anxiety Dyslipidemia Essential hypertension Gastritis Hypothyroidism Migraines Osteoporosis Surgical History History of carpal tunnel surgery History of section History of nasal surgery History of neck surgery History of shoulder surgery History of surgery Family History Father Cancer of prostate Mother HTN (hypertension) Maternal Grandmother Stroke Asthma Brother Substance use disorder Social History Housing: Apartment Alcohol intake: never Patient Tobacco Use Status: Former Tobacco user Years Smoked: 45 years ago e-Cigarette/Vaping Use: Never Used Second Hand Smoke Exposure: No Current occupational status: retired Cognitive needs: No Hearing needs: No Vision needs: No Assessment & Plan Assessment & Plan (1) Obesity (BMI 30-39.9): Code(s): E66.9 - Obesity, unspecified Patient Instructions: Recommend pt demonstrate adherence to diet recs before providing nutrition c learance. I explained this to the patient and she understands. She will be seen again at discretion of Dr. Fernandez Telehealth Telehealth Location of provider rendering services: practice address Location of patient: address on file Patient Identification confirmed using: Name, : Yes Telehealth method: voice only Patient verbally consented to treatment: Yes Patient verbally consented to billing insurance company: Yes Patient informed of any privacy concerns related to visit: Yes Minutes spent on Phone/Video with Pt.: 20 Coding Level of Care Code Nutr Indiv Subseq (05327) Diagnoses Obesity (BMI 30-39.9) E66.9 Time Spent (min) 20
[2022-12-04 09:16] VITALS: BMI 33.7
== END 2022-12-04 09:18 | disposition home or self-care (01) ==
LOC: HO.HBS 09:17
PROVIDERS: PCP Nurse Practitioner Family; Visit Provider Dietitian, Registered
DX: E66.9 Obesity, unspecified (principal)

== ENCOUNTER → 2022-12-04 09:17 | Outpatient (BNVA) | payer OTHER, SELFPAY | PROVIDERS: PCP Nurse Practitioner Family; Visit Provider Dietitian, Registered | DX: E66.9 Obesity, unspecified (principal); Z68.33 Body mass index [BMI] 33.0-33.9, adult; Z71.3 Dietary counseling and surveillance | CPT/HCPCS: 97803 ==

== ENCOUNTER 2022-12-07 10:00 | Outpatient (AMB) | payer OTHER, SELFPAY ==
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
== END 2022-12-07 11:11 | disposition home or self-care (01) ==
LOC: HO.HBST 10:21
PROVIDERS: PCP Nurse Practitioner Family; Visit Provider Counselor Mental Health
DX: F32.A Depression, unspecified (principal); F43.10 Post-traumatic stress disorder, unspecified
CPT/HCPCS: 90791

== ENCOUNTER → 2022-12-07 10:00 | Outpatient (BNVA) | payer OTHER, SELFPAY | PROVIDERS: PCP Nurse Practitioner Family; Visit Provider Counselor Mental Health ==

== ENCOUNTER 2022-12-10 08:48 | Outpatient (REF) | payer OTHER, SELFPAY ==
--- NOTE | ~2022-12-10 | FL_ITS ---
EXAMINATION: XR FLUOROSCOPY UPPER GI WITH AIR CLINICAL INFORMATION: Preoperative bariatric surgery. Obesity unspecified. Episodic oropharyngeal and hypopharyngeal phase dysphasia. GERD. COMPARISON: None available. TECHNIQUE: Fluoroscopic air contrast upper GI examination was performed utilizing standard techniques with thin and thick barium and effervescent granules. Numerous fluoroscopic spot images were obtained. FINDINGS: Imaging of the oropharyngeal and hypopharyngeal phase of swallow demonstrates normal epiglottic movement, and normal soft palate elevation. No nasopharyngeal reflux, and no evidence of laryngeal penetration or aspiration. Minor cricopharyngeal achalasia was noted. No masses or other abnormalities identified within the hypopharynx. The esophagus is without evidence of stricture, mass, or mucosal abnormality. 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 This did result in delay of passage of the column of barium into the stomach to a mild degree. There was a small type I hiatus hernia identified at the GE junction. There was episodic mild gastroesophageal reflux during the examination to the level of the rafa. Images of the stomach demonstrate normal contour, and mucosal fold appearance without evidence of mass or ulceration. Normal-appearing duodenal bulb, duodenal sweep, and proximal jejunum. Of note, the patient did exhibit unusually fast small bowel transit reaching the colon in under 5 minutes, however the fold pattern of the jejunum and ileum appear normal. The patient has had a prior cervical fusion spanning C4-C7. Ventral plate and screw fixation at C6-C7 is noted. Complete bony fusion through these disc spaces is evident. FLUOROSCOPY TIME: 3.7 minutes 32 images obtained. DOSE AREA PRODUCT: 43.231 uGy-m2 (microgray-meter squared) FL/FL upper GI w air IMPRESSION: 1. Mild episodic gastroesophageal reflux noted during the examination to the level of the rafa. 2. Small type I hiatus hernia. 3. Somewhat patulous esophagus with poor primary motility and extensive presbyesophagus. Esophagus otherwise normal. No mucosal normalities. 4. Normal-appearing stomach, duodenal bulb and sweep. 5. Abnormally fast transit of contrast to the colon in under 5 minutes. This is of undetermined etiology on this examination as the jejunal and ileal fold patterns appear normal. The patient stated she is taking oral magnesium for constipation, which may be the underlying etiology.
--- NOTE | ~2022-12-10 | US_ITS ---
EXAMINATION: US COMPLETE ABDOMEN WITH LIVER ELASTOGRAPHY CLINICAL INFORMATION: Obesity. COMPARISON: None available. TECHNIQUE: Real-time imaging of the abdominal viscera. Noninvasive ultrasound liver fibrosis assessment is performed using Norris ElastPQ point quantification shear wave elastography (2D-SWE) with a C5-2 MHz transducer. Multiple elastography samples are obtained. FINDINGS: PANCREAS: Normal. The visualized pancreatic head and body are normal in appearance. The remainder of the pancreas is obscured from visualization by the overlying bowel gas. ABDOMINAL AORTA: The proximal, middle, and distal aortic segments are normal in caliber. INFERIOR VENA CAVA: Visualized portions are normal. LIVER: Normal. The liver demonstrates normal size, contour and echogenicity. No focal lesion or intrahepatic biliary duct dilatation. The right lobe measures 11.8 cm in length. The left lobe measures 9.0 cm in length. Portal flow is towards the liver (hepatopetal). Shear wave liver elastography median stiffness is 1.57 m/s (reference: normal median stiffness is 1.3 m/s or less). IQR/median stiffness to assess sampling precision is 0.14 (reference: good quality data set is IQR/median stiffness of 0.15 or less). GALLBLADDER: Normal. The gallbladder is physiologically distended without evidence of stones, sludge, polyps, wall thickening or pericholecystic fluid. COMMON BILE DUCT: Normal in caliber measuring 0.6 cm in diameter. RIGHT KIDNEY: No hydronephrosis. No renal calculi or focal parenchymal lesions. The kidney measures 8.6 cm in maximum dimension. At the upper pole, a 9 mm benign, simple cyst is seen. At the lower pole, a 1.0 cm benign, simple cyst is seen. These require no imaging follow-up. LEFT KIDNEY: Normal. No hydronephrosis. No renal calculi or focal parenchymal lesions. The kidney measures 10.5 cm in maximum dimension. SPLEEN: Normal. The spleen measures 6.9 cm in maximum dimension. FREE FLUID: None. US/US abdomen comp w elastography IMPRESSION: Liver elastography: In the absence of other known clinical signs, measurements rule out compensated advanced chronic liver disease. If there are known clinical signs, further testing may be needed for confirmation. REFERENCE: Society of Radiologists in Ultrasound Liver Stiffness Thresholds (2020): LIVER STIFFNESS THRESHOLDS: *Liver Stiffness equal or less than 1.3 m/s: High probability of being normal. *Liver Stiffness less than 1.7 m/s: In the absence of other known clinical signs, rules out compensated advanced chronic liver disease. *Liver Stiffness 1.7-2.1 m/s: Suggestive of compensated advanced chronic liver disease but need further test for confirmation. *Liver Stiffness over 2.1 m/s: Rules in compensated advanced chronic liver disease. *Liver Stiffness over 2.4 m/s: Suggestive of clinically significant portal hypertension. QUALITY OF DATA SET: *IQR/Median value equal or less than 0.15 implies a quality data set. *IQR/Median value over 0.15 implies a poor quality data set. SIGNIFICANT CHANGE FROM PRIOR EXAM: Significant change if liver stiffness measurement is 10% or greater from prior exam. OTHER CONSIDERATIONS: The stage of liver fibrosis may be overestimated in the setting of acute hepatitis, liver inflammation, elevated liver function tests, hepatic vascular congestion, obstructive cholestasis, non-fasting state, and infiltrative diseases such as amyloidosis and lymphoma. In some patients with NAFLD, the liver stiffness thresholds for compensated advanced chronic liver disease may be lower. In causes other than viral hepatitis and NAFLD, liver stiffness thresholds are not well established.
== END 2022-12-10 08:49 | disposition home or self-care (01) ==
LOC: HO.US 08:48
PROVIDERS: PCP Nurse Practitioner Family; Visit Provider Physician Assistant Surgical
DX: Z01.810 Encounter for preprocedural cardiovascular examination (principal); E66.9 Obesity, unspecified
CPT/HCPCS: 74246; 76705; 76981

== ENCOUNTER → 2022-12-10 08:49 | Outpatient (BNV) | payer OTHER, SELFPAY | PROVIDERS: PCP Nurse Practitioner Family; Visit Provider Radiology Diagnostic Radiology | DX: Z01.818 Encounter for other preprocedural examination (principal) | CPT/HCPCS: 74246 ==

== ENCOUNTER 2022-12-18 12:24 | Outpatient (AMB) | payer OTHER, SELFPAY ==
--- NOTE | 2022-12-18 12:52 | MHC.OFFVISWM ---
Intake VS Expanded 12/18/22 13:00 Height 5 ft 2 in Weight 185 lb 9.6 oz BMI 33.9 BP 117/87 Blood Pressure Location Rt brachial Blood Pressure Position Sitting Pulse 87 Pulse Source Pulse Oximeter Temp 97.7 F Temperature Source Tympanic Pulse Oximetry 95 Oxygen Delivery Method Room Air Body Fat 76.8 Body Fat Percentage 41.4 Free Fat Mass 108.6 Muscle Mass 103.2 Visceral Mass 13.0 Water Mass 76.6 BMR 1,492 Intake Visit Reasons: (OV) F/U SWL (Ref. Romelia) Division Service Manager Required: No Division Service Manager Name: Pt declined Road Equipment Operator: Road Equipment Operator Present Allergies tramadol Allergy (Verified 12/18/22 13:03) Itching Medication List - Last Reconciled 12/18/22 by Ibrahima Fernandez MD alendronate 70 mg PO QWEEK 90 days atenolol 50 mg PO DAILY atorvastatin 80 mg PO BEDTIME [chair lift daily use NS] cholecalciferol (vitamin D3) 25 mcg PO DAILY 90 days cyclobenzaprine 5 mg PO TID diclofenac sodium 1% (Arthritis Pain (diclofenac)) 4 grams topical QID PRN 30 days divalproex ER 250 mg PO DAILY duloxetine 60 mg PO DAILY 90 days hospital bed daily hydroxyzine HCl 25 mg PO DAILY 30 days levothyroxine 112 mcg PO QAM meclizine 12.5 mg PO BID PRN pantoprazole 40 mg PO DAILY rizatriptan take 1 tab at onset of headache; if no relief may repeat 1 tab after at least 2 hrs; max = 3 tabs/24 hr PO trazodone 100 mg PO BEDTIME HPI HPI Comments History of Present Illness Details The patient is a 72-year-old woman with a lifelong struggle with obesity who entered the surgical weight loss program on October 19 with a weight of 199.6 lb/BMI 36.5. The EMR documents the patient requested an translator interpreter, but when offered, she declined interpretive services again today noted that she would request if something was not understood. She also requested the need for an translator interpreter be removed from her record for future appointments. She is congratulated on her weight loss and today presents at 185.6 lb/BMI 33.7 which represents a 14.2 lb weight-loss, just over 50% to goal weight of 180 lbs. She does note that prior cervical disc/spine disease limits her activity due to pain. She notes that weight gain started after her last and she has tried numerous fad diets and portion control to lose weight. She is always regained weight and as she has gotten older, her arthritis related issues including her C-spine impact on her ability to exercise Obesity related comorbidities include hypertension, lipid disorder and obstructive sleep apnea. The patient notes that for approximately a decade, she has been having issues with paroxysmal esophageal spasms and pain that she states are like a brush scraping and she notes a intermittent history of difficulty with the cervical phase of swallowing with both liquids and solid bolus/food. She denies any unexplained weight loss but notes that about 3 or 4 years ago, she had an upper endoscopy and was told everything is fine. She is currently on Protonix, 40 mg daily GERD 7 TRIP 6 ESS 6 QOL 96 Pre op work up completed as follows: SWL classes:? 11/17 BH appts: scheduled 11/20? ?? RD appts: seen 11/03, needs followup 12/04 Labs: 10/23 H. 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, small hiatal hernia PFSH Medical History Gastritis Migraines Dyslipidemia Hypothyroidism Osteoporosis Anxiety Essential hypertension Surgical History History of shoulder surgery History of section History of nasal surgery History of surgery History of carpal tunnel surgery History of neck surgery Family History Father Cancer of prostate Mother HTN (hypertension) Maternal Grandmother Stroke Asthma Brother Substance use disorder Social History Housing: Apartment Alcohol intake: never Patient Tobacco Use Status: Former Tobacco user Years Smoked: 45 years ago e-Cigarette/Vaping Use: Never Used Second Hand Smoke Exposure: No Current occupational status: retired Cognitive needs: No Hearing needs: No Vision needs: No Physical Exam The patient is non-toxic & in good spirits NC/AT, PERRLA, EOMI Mood, affect & judgment all appear appropriate Sclera anicteric conjunctiva pink and moist Oropharynx is clear with no aphthous ulcers, Mallampati class 4, mucous membranes moist Neck is supple with no masses, adenopathy or bruits. Patient endorses some restriction rotational and extension movement Abdomen is obese with no demonstrable hernias. No HSM, rebound, rigidity, guarding, masses or bruits are present. Rectal exam is deferred Skin has good turgor and is free of rashes Extremities free of cyanosis clubbing edema Results Reviewed Results Reviewed: Labs 10/23/2022 Hemoglobin 13.0, normal indices and normal iron studies, white blood cell count 5.9, platelet count 250K BUN 22, creatinine 0.86, electrolytes within normal parameters Hemoglobin A1c 5.8 LFTs show an elevation of alkaline phosphatase at 127, otherwise within normal parameters Helicobacter pylori is negative MVI: Vit A, B1, B12, folate, Vit D & A all WNL TSH, PTH WNL Diagnostic imaging Chest x-ray NAD Abd U/S normal elastography, no gallstones, liver normal size UGI presbyesophagus with dysmotility of the cervical and thoracic esophagus was noted with tertiary contractions; small hiatal hernia noted Assessment & Plan Assessment & Plan (1) Dysphagia: Code(s): R13.10 - Dysphagia, unspecified (2) BMI 33.0-33.9,adult: Code(s): Z68.33 - Body mass index [BMI] 33.0-33.9, adult (3) BMI 34.0-34.9,adult: Code(s): Z68.34 - Body mass index [BMI] 34.0-34.9, adult (4) Essential hypertension: Code(s): I10 - Essential (primary) hypertension (5) Dyslipidemia: Code(s): E78.5 - Hyperlipidemia, unspecified (6) Anxiety: Code(s): F41.9 - Anxiety disorder, unspecified (7) Obstructive sleep apnea: Comment: Borderline MANDEEP on sleep study 01/23/2022 Code(s): G47.33 - Obstructive sleep apnea (adult) (pediatric) (8) Cervical postlaminectomy syndrome: Code(s): M96.1 - Postlaminectomy syndrome, not elsewhere classified (9) Hypothyroid: Code(s): E03.9 - Hypothyroidism, unspecified (10) Presbyesophagus: Code(s): K22.89 - Other specified disease of esophagus (11) Hiatal hernia: Code(s): K44.9 - Diaphragmatic hernia without obstruction or gangrene Plan In reviewing the patient's symptoms of dysphagia and presbyesophagus on upper GI, options including referral to a pyrometer mechanic verses an EGD with biopsies were discussed and her questions answered. Patient would like to proceed with an EGD since she remains interested bariatric surgery, specifically a laparoscopic sleeve gastrectomy. We did discuss that the findings of the endoscopy could affect choice of operation. I reviewed the inherent risks of an upper endoscopy and biopsies which include, but are not limited to: Bleeding that could require another procedure a blood transfusion, aspiration that could cause pneumonia, perforation or injury that could require emergent surgery, delayed recognition of these complications, possible need for additional testing including esophageal manometry in the fact that the procedure is done think nonstick and not therapeutic. The patient seemed understand, her questions seemed to be satisfactorily answered. She would like to proceed. Will see the patient back for follow-up 1 week after the endoscopy and biopsies are performed. Coding Level of Care Code Est Pt Level 4 (07626) Diagnoses Dysphagia R13.10 BMI 33.0-33.9,adult Z68.33 BMI 34.0-34.9,adult Z68.34 Essential hypertension I10 Dyslipidemia E78.5 Anxiety F41.9 Obstructive sleep apnea G47.33 Cervical postlaminectomy syndrome M96.1 Hypothyroid E03.9 Presbyesophagus K22.89 Hiatal hernia K44.9
[2022-12-18 13:00] VITALS: BP 117/87; PULSE 87; TEMP 36.5; O2SAT 95; BMI 33.9
== END 2022-12-18 13:41 | disposition home or self-care (01) ==
PROVIDERS: PCP Nurse Practitioner Family; Visit Provider Surgery
DX: R13.10 Dysphagia, unspecified (principal); Z68.33 Body mass index [BMI] 33.0-33.9, adult; Z68.34 Body mass index [BMI] 34.0-34.9, adult; I10 Essential (primary) hypertension; E78.5 Hyperlipidemia, unspecified; F41.9 Anxiety disorder, unspecified; G47.33 Obstructive sleep apnea (adult) (pediatric); M96.1 Postlaminectomy syndrome, not elsewhere classified; E03.9 Hypothyroidism, unspecified; K22.89 Other specified disease of esophagus; K44.9 Diaphragmatic hernia without obstruction or gangrene
CPT/HCPCS: 99214

== ENCOUNTER → 2022-12-18 12:24 | Outpatient (BNVA) | payer OTHER, SELFPAY | PROVIDERS: PCP Nurse Practitioner Family; Visit Provider Surgery | DX: R13.10 Dysphagia, unspecified (principal); I10 Essential (primary) hypertension; E78.5 Hyperlipidemia, unspecified; F41.9 Anxiety disorder, unspecified; M96.1 Postlaminectomy syndrome, not elsewhere classified; G47.33 Obstructive sleep apnea (adult) (pediatric); E03.9 Hypothyroidism, unspecified; K22.89 Other specified disease of esophagus; K44.9 Diaphragmatic hernia without obstruction or gangrene | CPT/HCPCS: 99212 ==

== ENCOUNTER 2022-12-23 06:01 | Day surgery (SDC) | payer OTHER, SELFPAY ==
--- NOTE | 2022-12-22 09:59 | P.CONAN_ITS ---
Documented by User: Kelly Danielle NP 12/22/22 10:00 [facility] Active Problems Active Problems: All Active Problems (Updated 12/18/22 @ 13:36 by Ibrahima Fernandez MD) Hiatal hernia (Acute) Presbyesophagus (Acute) BMI 33.0-33.9,adult (Acute) Dysphagia (Acute) PTSD (post-traumatic stress disorder) (Acute) Depression (Acute) BMI 34.0-34.9,adult (Acute) Essential hypertension (Acute) Anxiety (Acute) Preop cardiovascular exam (Acute) Dyslipidemia (Acute) Dizziness (Acute) Obesity (Acute) Sacroiliac joint dysfunction (Acute) Cervical spondylosis (Acute) Acute bronchitis (Acute) Obstructive sleep apnea (Acute) Sinus tachycardia (Acute) Hypothyroid (Acute) Cervical postlaminectomy syndrome (Acute) Right hip pain (Acute) Memory loss (Acute) Chronic pain (Acute) Radiculopathy, cervical (Acute) Palpitations (Acute) Low back pain radiating to lower extremity (Acute) Right shoulder pain (Acute) Osteoporosis (Acute) Physical exam (Acute) Pre-op evaluation (Acute) Chest tightness (Acute) Hordeolum external (Acute) Shortness of breath (Acute) Hypothyroidism (Acute) Migraines (Acute) Right elbow pain (Acute) Fall (Acute) Past Medical History Medical History Gastritis Migraines Dyslipidemia Hypothyroidism Osteoporosis Anxiety Essential hypertension Family History Family History Father Cancer of prostate Mother HTN (hypertension) Maternal Grandmother Stroke Asthma Brother Substance use disorder Surgical History Surgical History History of shoulder surgery History of section History of nasal surgery History of surgery History of carpal tunnel surgery History of neck surgery Social History Social History Housing: Apartment Alcohol intake: never Patient Tobacco Use Status: Former Tobacco user Years Smoked: 45 years ago e-Cigarette/Vaping Use: Never Used Second Hand Smoke Exposure: No Are you DNR?: No Advance Directives: No Advance Directives Information Provided: Yes Nutrition Risks: No Nutritional Risk Current occupational status: retired Cognitive needs: No Hearing needs: No Vision needs: No Meds Allergies Allergy/AdvReac Type Severity Reaction Status Date / Time tramadol Allergy Itching Verified 12/23/22 06:24 Home Medications Medication Instructions Recorded Confirmed Last Taken Type atorvastatin 80 mg tablet 80 mg PO BEDTIME 08/27/22 12/23/22 Unknown History trazodone 100 mg tablet 100 mg PO BEDTIME 09/04/22 12/23/22 Unknown History Exam Exam Date and Time: December 22, 2022 0959 Pertinent Lab Results Pertinent Lab Results: Laboratory Tests 10/23/22 10:27 WBC 5.9 Hgb 13.0 Hct 40.6 Plt Count 250 Sodium 141 Potassium 4.2 Chloride 103 Carbon Dioxide 27 BUN 22 H Creatinine 0.86 Narrative Narrative: EKG 11/2022 NSR @ 79 ECHO 2021 Conclusions: - 1. Normal LV systolic function with grade 1 diastolic dysfunction 2. Normal cardiac valvular Doppler 3. Normal RV systolic pressure 4. No gross pericardial effusion Assessment and Plan Assessment Anesthesia Assessment: Chart Reviewed Documented by User: Jay Lainez MD 12/23/22 07:32 HPI - Anesthesia Eval Consult details Narrative: for EGD PMFSH Past Medical History Medical History Gastritis Migraines Dyslipidemia Hypothyroidism Osteoporosis Anxiety Essential hypertension Family History Family History Father Cancer of prostate Mother HTN (hypertension) Maternal Grandmother Stroke Asthma Brother Substance use disorder Family history of problems with anesthesia: No Surgical History Surgical History History of shoulder surgery History of section History of nasal surgery History of surgery History of carpal tunnel surgery History of neck surgery History of Problems with Anesthesia: No Social History Social History Housing: Apartment Alcohol intake: never Patient Tobacco Use Status: Former Tobacco user Years Smoked: 45 years ago e-Cigarette/Vaping Use: Never Used Second Hand Smoke Exposure: No Are you DNR?: No Advance Directives: No Advance Directives Information Provided: Yes Nutrition Risks: No Nutritional Risk Current occupational status: retired Cognitive needs: No Hearing needs: No Vision needs: No Meds Allergies Allergy/AdvReac Type Severity Reaction Status Date / Time tramadol Allergy Itching Verified 12/23/22 06:24 Home Medications Medication Instructions Recorded Confirmed Last Taken Type atorvastatin 80 mg tablet 80 mg PO BEDTIME 08/27/22 12/23/22 Unknown History trazodone 100 mg tablet 100 mg PO BEDTIME 09/04/22 12/23/22 Unknown History Exam Airway Mallampati Class: I TM Dist: >3cm Neck ROM: Limited Loose/Missing/Broken Teeth: Yes and Lower Heart: ok Lungs: ok Assessment and Plan Assessment Anesthesia Assessment: Anesthesia Plan Discussed Final Anesthetic Review Family History of Problems with Anesthesia: No History of Problems with Anesthesia: No NPO: Yes ASA Class: III Final Preanesthetic Review: No Changes in Pt Med Stat, Meds/Allgs Chart Reviewed, Consent Obtained/Reviewed and Anes Risks/Benef Reviewed Patient Risk: Intermediate Procedure Risk: Intermediate Anesthetic Plan Anesthetic Plan: MAC: and Agree w/ Assess. and Plan Disposition: Standard PACU
--- NOTE | 2022-12-22 14:46 | MHC.SHP ---
Pre-Procedural Eval Section A Date of Service: 12/22/22 The patient is an INPATIENT: No The History & Physical has been completed within 30 days and I have reviewed it.: Yes Section B Chief Complaint: Dysphagia, unspecified Allergies: Allergies Allergy/AdvReac Type Severity Reaction Status Date / Time tramadol Allergy Itching Verified 12/18/22 13:03 Plan I have reviewed the history and physical and performed a pertinent physical examination on my patient. No changes have occurred unless specified. Time Spent With Patient Time: Total time managing care of this patient today ____ minutes.
--- NOTE | 2022-12-22 14:47 | W.PM.OPN ---
Operative Note Operative Note Date of Service: 12/23/22 Narrative: Preop diagnosis: [Class 2 obesity, dysphagia, hiatal hernia and presbyesophagus on UGI] Postop diagnosis: [same, 5-6mm gastric antrum ulcer (healing), gastritis, no obvious HH, GERD] Procedure: [EGD w/ Bxs] Surgeon: Ibrahima Fernandez MD Assist: [] Anesthesia: [MAC] Estimated blood loss: [3cc] Specimen: [1) gastric antrum ulcer, 2) lower esophagus approx 36cm, 3) mid esophagus 20 cm] Intraoperative findings: [Presbyesophagus, irregular Z-line consistent with GERD but no ulceration. No obvious hiatal hernia is demonstrated under sedation, a healing gastric ulcer in the antrum measuring approximately 5 x 6 cm was noted. Duodenal bulb and 2nd portion of the duodenum appeared normal] Indications: [The patient is a 72-year-old woman with a lifelong struggle with her obesity refractory to medical management. She entered the surgical weight loss program at a weight of 199.8 lbs/BMI 36.5 and the obesity-related comorbidities of hypertension, dyslipidemia, and obstructive sleep apnea. During her workup, discussion was offered with interpretive services which was declined by the patient. She identified significant dysphagia, worse with certain medications/tablets and foods and on upper GI was noted to have both presbyesophagus and a small hiatal hernia. Given the effect of bariatric surgery on esophageal motility, and worsening of certain primary neuro muscular disorders, I recommended an upper endoscopy and biopsies and reviewed the option of discussion with gastroenterologists with the patient the inherent risks of bleeding, aspiration, perforation or injury that could require emergent surgery, delayed recognition of these complications and the possibility of no change in treatment was reviewed and apparently understood. The patient wanted to proceed with an EGD and biopsies. The possible need for esophageal manometry was also discussed.] Procedure: The patient was preoperative holding area and again in OR room 6. An appropriate time-out was performed while she was lucid. She was placed in left lateral decubitus position with a bite block in place. Following successful administration of MACgeneral anesthesia by the Department of Anesthesia, the Olympus 180 gastroscope was inserted per os into the esophagus under direct vision. The scope is then advanced into the stomach where clear secretions were encountered and aspirated. The stomach was then inflated and the stomach sweeney including anterior, posterior, lesser curve fundus and antrum all exam. The scope was then advanced to the 2nd portion of the duodenum. Biopsy sites were assessed for hemostasis which was good. Biopsies: Multiple biopsies of the gastric antrum ulcer, lower esophagus and midesophagus were obtained with cold forceps and good hemostasis The scope was used to aspirate gas from the stomach and withdrawn from the patient. GE junction is noted to be at 40 cm from the incisor and morphology Hiatal hernia was not appreciated. Esophageal morphology was consistent with presbyesophagus given its dilated appearance but no trachealization was appreciated The patient tolerated the procedure well and was sent to the recovery area in stable condition. ]
[2022-12-23 06:05] VITALS: BMI 33.8
[2022-12-23] MEDS: Lactated Ringers 1,000 ML 100 ML IVCONT (06:17)
[2022-12-23 06:24] VITALS: BP 119/76; PULSE 80; RESP 18; TEMP 36.6; O2SAT 96
[2022-12-23 08:02] VITALS: BP 108/70; PULSE 76; RESP 16; TEMP 36.2; O2SAT 92
[2022-12-23 08:07] VITALS: BP 113/77; PULSE 73; RESP 16; O2SAT 94
[2022-12-23 08:12] VITALS: BP 111/78; PULSE 79; RESP 18; O2SAT 97
[2022-12-23 08:17] VITALS: BP 121/88; PULSE 70; RESP 18; TEMP 36.1; O2SAT 97
== END 2022-12-23 08:46 | disposition home or self-care (01) ==
LOC: HO.SSS 06:02
PROVIDERS: PCP Nurse Practitioner Family; Visit Provider Surgery
PROC: 0DJ08ZZ Inspection of Upper Intestinal Tract, Via Natural or Artificial Opening Endoscopic (ICD-10-PCS; CPT 43235; principal; 2022-12-23 07:30)
DX: R13.10 Dysphagia, unspecified (principal); K22.4 Dyskinesia of esophagus; E66.9 Obesity, unspecified; Z68.33 Body mass index [BMI] 33.0-33.9, adult; I10 Essential (primary) hypertension; E78.5 Hyperlipidemia, unspecified; K29.70 Gastritis, unspecified, without bleeding; E03.9 Hypothyroidism, unspecified; G43.909 Migraine, unspecified, not intractable, without status migrainosus; M81.0 Age-related osteoporosis without current pathological fracture; G47.33 Obstructive sleep apnea (adult) (pediatric); F41.1 Generalized anxiety disorder; Z79.899 Other long term (current) drug therapy; Z88.8 Allergy status to other drugs, medicaments and biological substances; M96.1 Postlaminectomy syndrome, not elsewhere classified; Z98.890 Other specified postprocedural states; Z87.891 Personal history of nicotine dependence
CPT/HCPCS: 43239; 88305; 88342; J3010

== ENCOUNTER → 2022-12-23 06:01 | Outpatient (BNV) | payer OTHER, SELFPAY | PROVIDERS: PCP Nurse Practitioner Family; Visit Provider Surgery | DX: K25.9 Gastric ulcer, unspecified as acute or chronic, without hemorrhage or perforation (principal); K29.70 Gastritis, unspecified, without bleeding | CPT/HCPCS: 43239 ==

== ENCOUNTER 2022-12-29 12:49 | Outpatient (AMB) | payer OTHER, SELFPAY ==
--- NOTE | 2022-12-29 13:13 | A.OFFVIS_ITS ---
Intake VS Expanded 12/29/22 13:20 Height 5 ft 2 in Weight 184 lb 12.8 oz BMI 33.8 BP 124/85 Blood Pressure Location Rt brachial Blood Pressure Position Sitting Pulse 81 Pulse Source Pulse Oximeter Temp 97.3 F Temperature Source Tympanic Pulse Oximetry 95 Oxygen Delivery Method Room Air Body Fat 77.8 Body Fat Percentage 42.1 Free Fat Mass 107.0 Muscle Mass 101.4 Visceral Mass 13.0 Water Mass 75.2 BMR 1,473 Intake Visit Reasons: (OV) F/U SWL Allergies tramadol Allergy (Verified 12/23/22 06:24) Itching Medication List - Last Reconciled 12/29/22 by YOUNG Goins alendronate 70 mg PO QWEEK 90 days atenolol 50 mg PO DAILY atorvastatin 80 mg PO BEDTIME [chair lift daily use NS] cholecalciferol (vitamin D3) 25 mcg PO DAILY 90 days cyclobenzaprine 5 mg PO TID diclofenac sodium 1% (Arthritis Pain (diclofenac)) 4 grams topical QID PRN 30 days duloxetine 60 mg PO DAILY 90 days hospital bed daily hydroxyzine HCl 25 mg PO DAILY 30 days levothyroxine 112 mcg PO QAM meclizine 12.5 mg PO BID PRN pantoprazole 40 mg PO DAILY rizatriptan take 1 tab at onset of headache; if no relief may repeat 1 tab after at least 2 hrs; max = 3 tabs/24 hr PO trazodone 100 mg PO BEDTIME HPI HPI Comments History of Present Illness Details The patient is a pleasant 72 year old female who returns to the clinic for pre-operative surgical weight loss management.? They were last seen in the office on 12/18/2022, recorded weight at that time was 185.6 pounds, with a BMI of 33.9.? Today's weight is 184.8 pounds and BMI is 33.8.? There has been a weight loss of 9.2 pounds since initiating the surgical weight loss program on 10/19/2022 with a total body weight loss of 7.4%. Pre op work up completed as follows: SWL classes:? 11/17 BH appts: cleared 12/07? ?? RD appts: seen 11/03, 12/04, needs clearance Labs: 10/23 H. 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 Fernandez for abnormal UGI findings. Endoscopy results revealed 5-6mm gastric antrum ulcer (healing), gastritis, no obvious HH, GERD. Current meal plan includes: Pure Protein shake- HALF scoop in 8oz nonfat or 1% milk at 8am-10am Lunch at 12pm: 6 forks of protein and 6 forks of salad/vegetables. Meal to include lean meat (beef, fish, pork, turkey, chicken), cooked vegetables or a salad with olive oil and/or fruits (berries, pears, apples, kiwi). Pure Protein bar at 2pm-4pm or has been having a [place] yogurt instead Pure Protein shake- HALF scoop in 8oz nonfat or 1% milk at 6pm-8pm Has been using some Premier protein premade shakes occasionally. Current exercise plan includes: limited due to pain, walking is difficult; has done some chair yoga, has tried upper body bike PFSH Medical History Gastritis Migraines Dyslipidemia Hypothyroidism Osteoporosis Anxiety Essential hypertension Surgical History History of shoulder surgery History of section History of nasal surgery History of surgery History of carpal tunnel surgery History of neck surgery Family History Father Cancer of prostate Mother HTN (hypertension) Maternal Grandmother Stroke Asthma Brother Substance use disorder Social History Housing: Apartment Alcohol intake: never Patient Tobacco Use Status: Former Tobacco user Years Smoked: 45 years ago e-Cigarette/Vaping Use: Never Used Second Hand Smoke Exposure: No Current occupational status: retired Cognitive needs: No Hearing needs: No Vision needs: No Assessment & Plan Assessment & Plan (1) BMI 33.0-33.9,adult: Code(s): Z68.33 - Body mass index [BMI] 33.0-33.9, adult (2) Essential hypertension: Code(s): I10 - Essential (primary) hypertension (3) Presbyesophagus: Code(s): K22.89 - Other specified disease of esophagus (4) Dyslipidemia: Code(s): E78.5 - Hyperlipidemia, unspecified (5) Obstructive sleep apnea: Comment: Borderline MANDEEP on sleep study 01/23/2022 Code(s): G47.33 - Obstructive sleep apnea (adult) (pediatric) (6) Chronic pain: Code(s): G89.29 - Other chronic pain (7) Hypothyroidism: Code(s): E03.9 - Hypothyroidism, unspecified Plan Pt has reached more than 7% weight loss and has completed all preop workup except for final nutrition clearance. Will book one additional visit with RD. She has an appointment with Dr. Fernandez already scheduled for tomorrow. No changes to meal plan today, pt reports being consistent in following it. She requests her BH note sent to Dr. Mtz's office which we will do. Patient is obese and is not considered stable at this time. I spent a total of 30 minutes reviewing/updating records, examining the patient and counseling the patient on weight management as detailed above. Coding Level of Care Code Est Pt Level 4 (84259) Diagnoses BMI 33.0-33.9,adult Z68.33 Essential hypertension I10 Presbyesophagus K22.89 Dyslipidemia E78.5 Obstructive sleep apnea G47.33 Chronic pain G89.29 Hypothyroidism E03.9
[2022-12-29 13:20] VITALS: BP 124/85; PULSE 81; TEMP 36.3; O2SAT 95; BMI 33.8
== END 2022-12-29 13:36 | disposition home or self-care (01) ==
PROVIDERS: PCP Nurse Practitioner Family; Visit Provider Physician Assistant Surgical
DX: E66.09 Other obesity due to excess calories (principal); Z68.33 Body mass index [BMI] 33.0-33.9, adult; K22.89 Other specified disease of esophagus; E78.5 Hyperlipidemia, unspecified; G47.33 Obstructive sleep apnea (adult) (pediatric); G89.29 Other chronic pain; E03.9 Hypothyroidism, unspecified
CPT/HCPCS: 99214

== ENCOUNTER → 2022-12-29 12:49 | Outpatient (BNVA) | payer OTHER, SELFPAY | PROVIDERS: PCP Nurse Practitioner Family; Visit Provider Physician Assistant Surgical | DX: K22.89 Other specified disease of esophagus (principal); G89.29 Other chronic pain; I10 Essential (primary) hypertension; E03.9 Hypothyroidism, unspecified; E78.5 Hyperlipidemia, unspecified; G47.33 Obstructive sleep apnea (adult) (pediatric); Z68.33 Body mass index [BMI] 33.0-33.9, adult | CPT/HCPCS: 99212 ==

== ENCOUNTER 2022-12-30 10:05 | Outpatient (AMB) | payer OTHER, SELFPAY ==
--- NOTE | 2022-12-30 10:32 | MHC.OFFVISWM ---
Intake VS Expanded 12/30/22 10:36 Height 5 ft 2 in Weight 184 lb 11.958 oz BMI 33.8 BP 120/76 Blood Pressure Location Rt brachial Blood Pressure Position Sitting Pulse 92 Pulse Source Pulse Oximeter Temp 97.3 F Temperature Source Tympanic Pulse Oximetry 95 Oxygen Delivery Method Room Air Intake Visit Reasons: (OV) f/u EGD 12/23/22 Allergies tramadol Allergy (Verified 12/30/22 10:40) Itching HPI HPI Comments History of Present Illness Details The patient is a pleasant 72 year old female who returns to the clinic for pre-operative surgical weight loss management.? She were last seen in the office on 12/18/2022, recorded weight at that time was 185.6 pounds, with a BMI of 33.9.? Today's weight is 184.8 pounds and BMI is 33.8.? There has been a weight loss of 9.2 pounds since initiating the surgical weight loss program on 10/19/2022 with a total body weight loss of 7.4%. She denies interval change in continues to endorse following the diet/meal plan and limited exercise due to her neck and arthritis, but has continued dysphagia. We reviewed the EGD and biopsy findings which confirmed presbyesophagus, I did not appreciate a hiatal hernia, and a gastric antral ulcer measuring approximately 5-6 mm was encountered with biopsies that were negative for dysplasia, neoplasia or H pylori. She remains interested in surgical weight loss and is tolerating her Protonix without any issue. She declined interpretive services today. Pre op work up completed as follows: SWL classes:? 11/17 appts: cleared 12/07? ?? RD appts: seen 11/03, 12/04, needs clearance Labs: 10/23 H. 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 Fernandez for abnormal UGI findings. Endoscopy results revealed 5-6mm gastric antrum ulcer (healing), gastritis, no obvious HH, GERD. Current meal plan includes: Pure Protein shake- HALF scoop in 8oz nonfat or 1% milk at 8am-10am Lunch at 12pm: 6 forks of protein and 6 forks of salad/vegetables. Meal to include lean meat (beef, fish, pork, turkey, chicken), cooked vegetables or a salad with olive oil and/or fruits (berries, pears, apples, kiwi). Pure Protein bar at 2pm-4pm or has been having a Malay yogurt instead Pure Protein shake- HALF scoop in 8oz nonfat or 1% milk at 6pm-8pm Has been using some Premier protein premade shakes occasionally. Current exercise plan includes: limited due to pain, walking is difficult; has done some chair yoga, has tried upper body bike PFSH Medical History Gastritis Migraines Dyslipidemia Hypothyroidism Osteoporosis Anxiety Essential hypertension Surgical History History of shoulder surgery History of section History of nasal surgery History of surgery History of carpal tunnel surgery History of neck surgery Family History Father Cancer of prostate Mother HTN (hypertension) Maternal Grandmother Stroke Asthma Brother Substance use disorder Social History Housing: Apartment Alcohol intake: never Patient Tobacco Use Status: Former Tobacco user Years Smoked: 45 years ago e-Cigarette/Vaping Use: Never Used Second Hand Smoke Exposure: No Current occupational status: retired Cognitive needs: No Hearing needs: No Vision needs: No Physical Exam Vital Signs: Last Vital Signs Temp 97.3 F 12/30/22 10:36 Pulse 92 12/30/22 10:36 BP 120/76 12/30/22 10:36 Pulse Ox 95 12/30/22 10:36 Oxygen Delivery Method Room Air 12/30/22 10:36 BMI result Body Mass Index 33.8 The patient is non-toxic & in good spirits NC/AT, PERRLA, EOMI Mood, affect & judgment all appear appropriate Sclera anicteric conjunctiva pink and moist Oropharynx is clear with no aphthous ulcers, Mallampati class 4, mucous membranes moist Neck has some limited movement, but no masses, adenopathy or bruits. Patient endorses some restriction rotational and extension movement Abdomen is obese with no demonstrable hernias. No HSM, rebound, rigidity, guarding, masses or bruits are present. Rectal exam is deferred Skin has good turgor and is free of rashes Extremities free of cyanosis clubbing edema Results Reviewed Results Reviewed: Labs 10/23/2022 Hemoglobin 13.0, normal indices and normal iron studies, white blood cell count 5.9, platelet count 250K BUN 22, creatinine 0.86, electrolytes within normal parameters Hemoglobin A1c 5.8 LFTs show an elevation of alkaline phosphatase at 127, otherwise within normal parameters Helicobacter pylori is negative MVI: Vit A, B1, B12, folate, Vit D & A all WNL TSH, PTH WNL Diagnostic imaging Chest x-ray NAD Abd U/S normal elastography, no gallstones, liver normal size UGI presbyesophagus with dysmotility of the cervical and thoracic esophagus was noted with tertiary contractions; small hiatal hernia noted EGD w/ Bx 12/22/22 showed normal esophageal mucosa with no increased eosinophils, no appreciated hiatal hernia, gastric antral ulcer with negative biopsies for Helicobacter or atypia/neoplasia. Assessment & Plan Assessment & Plan (1) Presbyesophagus: Code(s): K22.89 - Other specified disease of esophagus (2) BMI 34.0-34.9,adult: Code(s): Z68.34 - Body mass index [BMI] 34.0-34.9, adult (3) Essential hypertension: Code(s): I10 - Essential (primary) hypertension (4) Anxiety: Code(s): F41.9 - Anxiety disorder, unspecified (5) Dysphagia: Code(s): R13.10 - Dysphagia, unspecified (6) Hiatal hernia: Code(s): K44.9 - Diaphragmatic hernia without obstruction or gangrene Plan The importance of continuing her PPI was reviewed. Patient is tolerating with no headache and no GI distress. The need to repeat an EGD in 2 months to assess the gastric antral ulcer was discussed and apparently understood. No changes are made to the meal plan. The patient will continue to increase her activity as tolerated and return to see me in 1 month. We discussed or presbyesophagus an unusual motility in the possible issues regarding worsening of dysphagia from sleeve gastrectomy and possible option of gastric bypass. The need for esophageal manometry at this point was discussed and the patient is willing to go to [facility] for esophageal manometry. Referral placed. Orders: Referrals Gastroenterology Referral K22.89 - Other specified disease of esophagus, K44.9 - Diaphragmatic hernia without obstruction or gangrene, R13.10 - Dysphagia, unspecified Coding Level of Care Code Est Pt Level 4 (52162) Diagnoses Presbyesophagus K22.89 BMI 34.0-34.9,adult Z68.34 Essential hypertension I10 Anxiety F41.9 Dysphagia R13.10 Hiatal hernia K44.9
[2022-12-30 10:36] VITALS: BP 120/76; PULSE 92; TEMP 36.3; O2SAT 95; BMI 33.8
== END 2022-12-30 10:47 | disposition home or self-care (01) ==
PROVIDERS: PCP Nurse Practitioner Family; Visit Provider Surgery
DX: K22.89 Other specified disease of esophagus (principal); Z68.34 Body mass index [BMI] 34.0-34.9, adult; I10 Essential (primary) hypertension; F41.9 Anxiety disorder, unspecified; R13.10 Dysphagia, unspecified; K44.9 Diaphragmatic hernia without obstruction or gangrene
CPT/HCPCS: 99214

== ENCOUNTER → 2022-12-30 10:05 | Outpatient (BNVA) | payer OTHER, SELFPAY | PROVIDERS: PCP Nurse Practitioner Family; Visit Provider Surgery | DX: K22.89 Other specified disease of esophagus (principal); R13.10 Dysphagia, unspecified; K44.9 Diaphragmatic hernia without obstruction or gangrene; F41.9 Anxiety disorder, unspecified; I10 Essential (primary) hypertension | CPT/HCPCS: 99212 ==

== ENCOUNTER → 2023-02-05 09:41 | Outpatient (BNVA) | payer OTHER, SELFPAY | PROVIDERS: PCP Nurse Practitioner Family; Visit Provider Dietitian, Registered | DX: E66.09 Other obesity due to excess calories (principal); Z71.3 Dietary counseling and surveillance | CPT/HCPCS: 97803 ==

== ENCOUNTER 2023-02-22 07:56 | Outpatient (AMB) | payer OTHER, SELFPAY ==
--- NOTE | 2023-02-22 08:06 | A.OFFVIS_ITS ---
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 She were last seen in the office on 12/18/2022, recorded weight at that time was 185.6 pounds, with a BMI of 33.9.? Today's weight is 181.8 pounds and BMI is 33.3.? There has been a weight loss of 17.2 pounds since initiating the surgical weight loss program on 10/19/2022. She denies interval change in continues to endorse following the diet/meal plan and limited exercise due to her neck and arthritis, but has continued dysphagia. She was noted to have both presbyesophagus and esophageal dysmotility on upper GI and esophageal manometry is currently pending for 03/01/2023. We reviewed the EGD and biopsy findings which confirmed presbyesophagus, I did not appreciate a hiatal hernia, and a gastric antral ulcer measuring approximately 5-6 mm was encountered with biopsies that were negative for dysplasia, neoplasia or H pylori. She remains interested in surgical weight loss and is tolerating her Protonix without any issue. She declined interpretive services today. Pre op work up completed as follows: SWL classes:? 11/17 BH appts: cleared 12/07? ?? RD appts: seen 11/03, 12/04, needs clearance Labs: 10/23 H. 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 Fernandez for abnormal UGI findings. Endoscopy results revealed 5-6mm gastric antrum ulcer (healing), gastritis, no obvious HH, GERD. Current meal plan includes: Pure Protein shake- HALF scoop in 8oz nonfat or 1% milk at 8am-10am Lunch at 12pm: 6 forks of protein and 6 forks of salad/vegetables. Meal to include lean meat (beef, fish, pork, turkey, chicken), cooked vegetables or a salad with olive oil and/or fruits (berries, pears, apples, kiwi). Pure Protein bar at 2pm-4pm or has been having a Nepali yogurt instead Pure Protein shake- HALF scoop in 8oz nonfat or 1% milk at 6pm-8pm Has been using some Premier protein premade shakes occasionally. She notes that this is working well for her, she is having no hunger and does not wish to change at this time. Current exercise plan includes: limited due to pain, walking is difficult; has done some chair yoga, has tried upper body bike; patient further notes that her 's health problems are impacting her ability to exercise or take care of herself. [facility] Medical History Gastritis Migraines Dyslipidemia Hypothyroidism Osteoporosis Anxiety Essential hypertension Surgical History History of shoulder surgery History of section History of nasal surgery History of surgery History of carpal tunnel surgery History of neck surgery Family History Father Cancer of prostate Mother HTN (hypertension) Maternal Grandmother Stroke Asthma Brother Substance use disorder Social History Housing: Apartment Alcohol intake: never Patient Tobacco Use Status: Former Tobacco user Years Smoked: 45 years ago e-Cigarette/Vaping Use: Never Used Second Hand Smoke Exposure: No Current occupational status: retired Cognitive needs: No Hearing needs: No Vision needs: No Review of Systems Const All systems reviewed & are unremarkable except as noted in HPI and below Physical Exam The patient is non-toxic & in good spirits NC/AT, PERRLA, EOMI Mood, affect & judgment all appear appropriate Sclera anicteric conjunctiva pink and moist Oropharynx is clear with no aphthous ulcers, Mallampati class 4, mucous membranes moist Neck has some limited movement, but no masses, adenopathy or bruits. Patient endorses some restriction rotational and extension movement Abdomen is obese with no demonstrable hernias. No HSM, rebound, rigidity, guarding, masses or bruits are present. Rectal exam is deferred Skin has good turgor and is free of rashes Extremities free of cyanosis clubbing edema Results Reviewed Results Reviewed: Labs 10/23/2022 Hemoglobin 13.0, normal indices and normal iron studies, white blood cell count 5.9, platelet count 250K BUN 22, creatinine 0.86, electrolytes within normal parameters Hemoglobin A1c 5.8 LFTs show an elevation of alkaline phosphatase at 127, otherwise within normal parameters Helicobacter pylori is negative MVI: Vit A, B1, B12, folate, Vit D & A all WNL TSH, PTH WNL Diagnostic imaging Chest x-ray NAD Abd U/S normal elastography, no gallstones, liver normal size UGI presbyesophagus with dysmotility of the cervical and thoracic esophagus was noted with tertiary contractions; small hiatal hernia noted Esophageal manometry scheduled for 03/01/2023 EGD w/ Bx 12/22/22 showed normal esophageal mucosa with no increased eosinophils, no appreciated hiatal hernia, gastric antral ulcer with negative biopsies for Helicobacter or atypia/neoplasia. Assessment & Plan Assessment & Plan (1) Hiatal hernia: Code(s): K44.9 - Diaphragmatic hernia without obstruction or gangrene (2) Obesity: Code(s): E66.9 - Obesity, unspecified (3) Essential hypertension: Code(s): I10 - Essential (primary) hypertension (4) PTSD (post-traumatic stress disorder): Code(s): F43.10 - Post-traumatic stress disorder, unspecified (5) Dysphagia: Code(s): R13.10 - Dysphagia, unspecified (6) Presbyesophagus: Code(s): K22.89 - Other specified disease of esophagus (7) Dyslipidemia: Code(s): E78.5 - Hyperlipidemia, unspecified Plan The patient is congratulated on her ongoing weight loss and has no concerns regarding the meal plan. She declined changes and seems to be doing well. However, we did discuss her limited activity/exercise and risk of weight regain. Will see the patient back in the beginning of March after her esophageal manometry is performed. Questions seemed to be satisfactorily answered. Coding Level of Care Code Est Pt Level 4 (72917) Diagnoses Hiatal hernia K44.9 Obesity E66.9 Essential hypertension I10 PTSD (post-traumatic stress disorder) F43.10 Dysphagia R13.10 Presbyesophagus K22.89 Dyslipidemia E78.5
[2023-02-22 08:17] VITALS: BP 132/78; PULSE 64; TEMP 35.8; O2SAT 94; BMI 33.2
== END 2023-02-22 08:26 | disposition home or self-care (01) ==
PROVIDERS: PCP Nurse Practitioner Family; Visit Provider Surgery
DX: K44.9 Diaphragmatic hernia without obstruction or gangrene (principal); E66.9 Obesity, unspecified; I10 Essential (primary) hypertension; F43.10 Post-traumatic stress disorder, unspecified; R13.10 Dysphagia, unspecified; K22.89 Other specified disease of esophagus; E78.5 Hyperlipidemia, unspecified
CPT/HCPCS: 99214

== ENCOUNTER → 2023-02-22 07:56 | Outpatient (BNVA) | payer OTHER, SELFPAY | PROVIDERS: PCP Nurse Practitioner Family; Visit Provider Surgery | DX: E66.9 Obesity, unspecified (principal); K44.9 Diaphragmatic hernia without obstruction or gangrene; I10 Essential (primary) hypertension; F43.10 Post-traumatic stress disorder, unspecified; R13.10 Dysphagia, unspecified; K22.89 Other specified disease of esophagus; E78.5 Hyperlipidemia, unspecified; Z68.33 Body mass index [BMI] 33.0-33.9, adult | CPT/HCPCS: 99212 ==

== ENCOUNTER 2023-03-15 07:38 | Outpatient (AMB) | payer OTHER, SELFPAY ==
--- NOTE | 2023-03-15 07:50 | MHC.OFFVISWM ---
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 She were last seen in the office, representing 1 lb gain since last visit; recorded weight at that time was 185.6 pounds, with a BMI of 33.9.? Today's weight is 182.6 pounds and BMI is 33.4.? There has been a weight loss of 16 pounds since initiating the surgical weight loss program on 10/19/2022. Her esophageal manometry done at [facility] has been completed but not interpreted & the study itself isn't available at this time. She was noted to have both presbyesophagus and esophageal dysmotility on upper GI and esophageal manometry is currently. The pt was originally sent to [facility], but the wait was so long she requested another site. She denies interval change in continues to endorse following the diet/meal plan and limited exercise due to her neck and arthritis, but has continued dysphagia. We reviewed the EGD and biopsy findings which confirmed presbyesophagus, I did not appreciate a hiatal hernia, and a gastric antral ulcer measuring approximately 5-6 mm was encountered with biopsies that were negative for dysplasia, neoplasia or H pylori. She remains interested in surgical weight loss and is tolerating her Protonix without any issue. She declined interpretive services today. Pre op work up completed as follows: SWL classes:? 11/17 BH appts: cleared 12/07? ?? RD appts: seen 11/03, 12/04, needs clearance Labs: 10/23 H. 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 Fernandez for abnormal UGI findings. Endoscopy results revealed 5-6mm gastric antrum ulcer (healing), gastritis, no obvious HH, GERD. Current meal plan includes: Pure Protein shake- HALF scoop in 8oz nonfat or 1% milk at 8am-10am Lunch at 12pm: 6 forks of protein and 6 forks of salad/vegetables. Meal to include lean meat (beef, fish, pork, turkey, chicken), cooked vegetables or a salad with olive oil and/or fruits (berries, pears, apples, kiwi). Pure Protein bar at 2pm-4pm or has been having a Armenian yogurt instead Pure Protein shake- HALF scoop in 8oz nonfat or 1% milk at 6pm-8pm Has been using some Premier protein premade shakes occasionally. She notes that this is working well for her, she is having no hunger and does not wish to change at this time. Current exercise plan includes: limited due to pain, walking is difficult; has done some chair yoga, has tried upper body bike; patient further notes that her 's health problems are impacting her ability to exercise or take care of herself. [facility] Medical History Gastritis Migraines Dyslipidemia Hypothyroidism Osteoporosis Anxiety Essential hypertension Surgical History History of shoulder surgery History of section History of nasal surgery History of surgery History of carpal tunnel surgery History of neck surgery Family History Father Cancer of prostate Mother HTN (hypertension) Maternal Grandmother Stroke Asthma Brother Substance use disorder Social History Housing: Apartment Alcohol intake: never Patient Tobacco Use Status: Former Tobacco user Years Smoked: 45 years ago e-Cigarette/Vaping Use: Never Used Second Hand Smoke Exposure: No Current occupational status: retired Cognitive needs: No Hearing needs: No Vision needs: No Review of Systems Const All systems reviewed & are unremarkable except as noted in HPI and below Physical Exam The patient is non-toxic & in good spirits NC/AT, PERRLA, EOMI Mood, affect & judgment all appear appropriate Sclera anicteric conjunctiva pink and moist Oropharynx is clear with no aphthous ulcers, Mallampati class 4, mucous membranes moist Neck has some limited movement, but no masses, adenopathy or bruits. Patient endorses some restriction rotational and extension movement Abdomen is obese with no demonstrable hernias. No HSM, rebound, rigidity, guarding, masses or bruits are present. Rectal exam is deferred Skin has good turgor and is free of rashes Extremities free of cyanosis clubbing edema Results Reviewed Results Reviewed: Labs 10/23/2022 Hemoglobin 13.0, normal indices and normal iron studies, white blood cell count 5.9, platelet count 250K BUN 22, creatinine 0.86, electrolytes within normal parameters Hemoglobin A1c 5.8 LFTs show an elevation of alkaline phosphatase at 127, otherwise within normal parameters Helicobacter pylori is negative MVI: Vit A, B1, B12, folate, Vit D & A all WNL TSH, PTH WNL Diagnostic imaging Chest x-ray NAD Abd U/S normal elastography, no gallstones, liver normal size UGI presbyesophagus with dysmotility of the cervical and thoracic esophagus was noted with tertiary contractions; small hiatal hernia noted Esophageal manometry from [facility] is pending read in 1-2 weeks. EGD w/ Bx 12/22/22 showed normal esophageal mucosa with no increased eosinophils, no appreciated hiatal hernia, gastric antral ulcer with negative biopsies for Helicobacter or atypia/neoplasia. Assessment & Plan Assessment & Plan (1) BMI 33.0-33.9,adult: Code(s): Z68.33 - Body mass index [BMI] 33.0-33.9, adult (2) Presbyesophagus: Code(s): K22.89 - Other specified disease of esophagus (3) Hiatal hernia: Code(s): K44.9 - Diaphragmatic hernia without obstruction or gangrene (4) Dysphagia: Code(s): R13.10 - Dysphagia, unspecified (5) PTSD (post-traumatic stress disorder): Code(s): F43.10 - Post-traumatic stress disorder, unspecified (6) Essential hypertension: Code(s): I10 - Essential (primary) hypertension (7) Anxiety: Code(s): F41.9 - Anxiety disorder, unspecified (8) Dyslipidemia: Code(s): E78.5 - Hyperlipidemia, unspecified (9) Radiculopathy, cervical: Code(s): M54.12 - Radiculopathy, cervical region Plan Patient notes some ongoing issues with constipation and written instructions regarding a bowel regime with inulin gummies/fiber supplements, docusate, every other day milk of magnesia if needed was reviewed and the patient will reach out if she has ongoing problems. Patient notes that she has had some challenges during the holidays with her meal plan and is doing the best she can regarding exercise. We discussed that she has gained a lb but, overall she has been doing well and remains interested in sleeve gastrectomy and hiatal hernia repair assuming that there are no contraindications found on on her esophageal manometry. Esophageal manometry at [facility] was completed 03/01/2023 and official interpretation is pending. EGD and biopsies showed no H pylori nor EOE or other pathology with that would affect operative decision, however, the patient's abnormal esophageal motility and presbyesophagus may affect operative choices. She understands and her questions seemed to be satisfactorily answered. I have set the patient to follow up with Dr. Alberto in 1 month which should be enough time for the manometry to be returned since I will be out of the office for several months. Patient will otherwise continue her medications and reach out with any questions. Coding Level of Care Code Est Pt Level 4 (64647) Diagnoses BMI 33.0-33.9,adult Z68.33 Presbyesophagus K22.89 Hiatal hernia K44.9 Dysphagia R13.10 PTSD (post-traumatic stress disorder) F43.10 Essential hypertension I10 Anxiety F41.9 Dyslipidemia E78.5 Radiculopathy, cervical M54.12
[2023-03-15 08:14] VITALS: BP 134/79; PULSE 94; TEMP 36.1; O2SAT 94; BMI 33.4
== END 2023-03-15 08:32 | disposition home or self-care (01) ==
PROVIDERS: PCP Nurse Practitioner Family; Visit Provider Surgery
DX: E66.9 Obesity, unspecified (principal); Z68.33 Body mass index [BMI] 33.0-33.9, adult; K22.89 Other specified disease of esophagus; K44.9 Diaphragmatic hernia without obstruction or gangrene; R13.10 Dysphagia, unspecified; F43.10 Post-traumatic stress disorder, unspecified; I10 Essential (primary) hypertension; F41.9 Anxiety disorder, unspecified; E78.5 Hyperlipidemia, unspecified; M54.12 Radiculopathy, cervical region
CPT/HCPCS: 99214

== ENCOUNTER → 2023-03-15 07:38 | Outpatient (BNVA) | payer OTHER, SELFPAY | PROVIDERS: PCP Nurse Practitioner Family; Visit Provider Surgery | DX: E66.9 Obesity, unspecified (principal); Z68.33 Body mass index [BMI] 33.0-33.9, adult; K22.89 Other specified disease of esophagus; K44.9 Diaphragmatic hernia without obstruction or gangrene; R13.10 Dysphagia, unspecified; F43.10 Post-traumatic stress disorder, unspecified; I10 Essential (primary) hypertension; F41.9 Anxiety disorder, unspecified; E78.5 Hyperlipidemia, unspecified; M54.12 Radiculopathy, cervical region | CPT/HCPCS: 99212 ==

== ENCOUNTER 2023-04-07 09:07 | Outpatient (AMB) | payer OTHER, SELFPAY ==
--- NOTE | 2023-04-07 09:15 | MHC.PC.OV ---
Vital Signs 04/07/23 09:17 Height 5 ft 2 in Weight 185 lb BMI 33.8 BP 130/80 Blood Pressure Location Rt brachial Position Sitting Pulse 84 Pulse Source Pulse Oximeter Pulse Oximetry (%) 97 Oxygen Delivery Method Room Air Intake Visit Reasons: 4 month fu Intake Note: Patient here to follow up on osteoporosis. Allergies tramadol Allergy (Verified 04/07/23 09:17) Itching Tobacco use date assessed: 11/30/22 HPI 4 month fu HPI Details Hypothyroid: Pt is currently taking levothyroxine 112mcg. Last TSH was WNL. Denies excessive fatigue, cold intolerance, and constipation. She is following up with bariatrics. [facility] Medical History Gastritis Migraines Dyslipidemia Hypothyroidism Osteoporosis Anxiety Essential hypertension Surgical History History of shoulder surgery History of section History of nasal surgery History of surgery History of carpal tunnel surgery History of neck surgery Family History Father Cancer of prostate Mother HTN (hypertension) Maternal Grandmother Stroke Asthma Brother Substance use disorder Social History Housing: Apartment Alcohol intake: never Patient Tobacco Use Status: Former Tobacco user Years Smoked: 45 years ago e-Cigarette/Vaping Use: Never Used Second Hand Smoke Exposure: No Current occupational status: retired Cognitive needs: No Hearing needs: No Vision needs: No Questionnaire Thrive Questionnaire Date Thrive assessed: 08/14/21 JUANA-7 AMB Questionnaire JUANA-7 Date JUANA - 7 assessed: 08/14/21 Source: Developed by Drs. Jerrod Jain, Sally Davis, Sixto Noel and colleagues, with an educational rosalee from [employer]. Review of Systems Const Reports as per HPI Physical exam (Primary Care) Vital Signs: Last Vital Signs Pulse 84 04/07/23 09:17 BP 130/80 04/07/23 09:17 Pulse Ox 97 04/07/23 09:17 Oxygen Delivery Method Room Air 04/07/23 09:17 BMI result Body Mass Index 33.8 Tobacco/Smoking Status: Tobacco use Status Tobacco use date assessed 11/30/22 04/07/23 09:17 Patient Tobacco Use Status Former Tobacco user 04/07/23 09:17 e-Cigarette/Vaping Use Never Used 04/07/23 09:17 Thrive Assessment: Date of Thrive Assessment Date Thrive assessed 08/14/21 04/07/23 09:17 Const General: cooperative Nutritional Appearance: obese Orientation/consciousness: patient oriented x3 Resp Effort & Inspection: normal respiratory effort Auscultation: clear to auscultation bilaterally Cardio Rate: regular rate Rhythm: regular rhythm Heart sounds: S1 normal heart sound present and S2 normal heart sound present Neuro General: patient oriented x3 Psych Appearance: grossly normal Mental Status: mental status grossly normal Speech and movement: Normal speech and movement present Affect: normal affect Attitude: cooperative Thought process: Normal thought process present Thought content: Normal thought content present Insight: Good insight present (Psych) Judgement: Good judgement present (Psych) Assessment and Plan Assessment & Plan (1) Hypothyroid: Code(s): E03.9 - Hypothyroidism, unspecified Plan: on levothyroxine Plan The patient agreed to the use of a medical support specialist for this encounter. Scribed for YARON Ordoñez by Naomie Lua medical support specialist, on 04/07/2023 at 09:35 EST. Coding Level of Care Code Est Pt Level 3 (87314) Diagnoses Hypothyroid E03.9
[2023-04-07 09:17] VITALS: BP 130/80; PULSE 84; O2SAT 97; BMI 33.8
== END 2023-04-07 09:50 | disposition home or self-care (01) ==
PROVIDERS: PCP Nurse Practitioner Family; Visit Provider Nurse Practitioner Family
DX: E03.9 Hypothyroidism, unspecified (principal)
CPT/HCPCS: 99213

== ENCOUNTER 2023-04-26 08:02 | Outpatient (AMB) | payer OTHER, SELFPAY ==
--- NOTE | 2023-04-26 09:28 | MHC.OFFVISWM ---
Intake VS Expanded 04/26/23 09:58 Height 5 ft 2 in Weight 182 lb 4 oz BMI 33.3 Intake Visit Reasons: TV Consult/Transfer Dr. Fernandez Allergies tramadol Allergy (Verified 04/26/23 09:28) Itching Medication List - Last Reconciled 04/26/23 by Shaggy Alberto MD alendronate 70 mg PO QWEEK 90 days atenolol 50 mg PO DAILY atorvastatin 80 mg PO BEDTIME [chair lift daily use NS] cholecalciferol (vitamin D3) 25 mcg PO DAILY 90 days cyclobenzaprine 5 mg PO TID diclofenac sodium 1% (Arthritis Pain (diclofenac)) 4 grams topical QID PRN 30 days duloxetine 60 mg PO DAILY 90 days hospital bed daily hydroxyzine HCl 25 mg PO DAILY 30 days levothyroxine 112 mcg PO QAM meclizine 12.5 mg PO BID PRN pantoprazole 40 mg PO DAILY rizatriptan take 1 tab at onset of headache; if no relief may repeat 1 tab after at least 2 hrs; max = 3 tabs/24 hr PO trazodone 100 mg PO BEDTIME HPI TV Consult/Transfer Dr. Fernandez HPI Details Start time: 9.15am, End time: 10.08am ?I spent 48 minutes speaking with the patient on the phone plus an additional 5 minutes reviewing and updating records for a total of 53 minutes HPI Comments History of Present Illness Details Overall weight loss: 17.3lbs, or 8.66% TBWL Is doing 2 Premier protein shakes, 2 Pure protein bars and one meal (unmeasured) Exercise: [facility] Medical History Gastritis Migraines Dyslipidemia Hypothyroidism Osteoporosis Anxiety Essential hypertension Surgical History History of shoulder surgery History of section History of nasal surgery History of surgery History of carpal tunnel surgery History of neck surgery Family History Father Cancer of prostate Mother HTN (hypertension) Maternal Grandmother Stroke Asthma Brother Substance use disorder Social History Housing: Apartment Alcohol intake: never Patient Tobacco Use Status: Former Tobacco user Years Smoked: 45 years ago e-Cigarette/Vaping Use: Never Used Second Hand Smoke Exposure: No Current occupational status: retired Cognitive needs: No Hearing needs: No Vision needs: No Assessment & Plan Assessment & Plan (1) Obesity: Code(s): E66.9 - Obesity, unspecified Qualifiers: Obesity type: due to excess calories Obesity classification: adult class 1 (BMI 30 - 34.9) Serious obesity comorbidity presence: with serious comorbidity Body mass index: BMI 33.0-33.9 Qualified Code(s): E66.09 - Other obesity due to excess calories; Z68.33 - Body mass index [BMI] 33.0-33.9, adult Plan: 1. Plan for lap sleeve gastrectomy including upper GI endoscopy. All tests has been completed and reviewed and the patient is cleared for the surgery. ?If diaphragmatic or ventral hernias are present at time of surgery, these will be repaired laparoscopically as well. Risks and complications were discussed in detail including possible conversion to an open procedure, anastomotic leak, bleeding requiring transfusion, small bowel obstruction, , DVT and pulmonary embolism, cardiac, or pulmonary complications, as terminal operations supervisor complications such as anastomotic ulcer, insufficient weight loss and vitamin deficiencies. I emphasized the importance of close follow-up, adherence to instructions and good communication. So far she has proven to be an excellent communicator and very compliant with all our directions accomplishing a great weight loss. I believe that she is an excellent candidate and she is ready. 2. Change nutritional plan to 2 premade Premier protein shakes (mix 4oz of the shake with 6oz of low fat unsweetended almond milk) at 7am-9am and 11am-1pm, one Pure protein bar at 3pm-5pm, dinner at 7pm (8 forks of protein and 8 forks of salad or vegetables) and one premade Premier protein shake (mix 4oz of the shake with 6oz of low fat unsweetended almond milk) at 9pm-11pm. 3. Start going to the [employer] twice per day and burn 150 calories per work-out, twice per day, daily at the stationary bike 4. Buy the body composition scale I recommended and start sending me weight measurements weekly on Sundays Telehealth Telehealth Location of provider rendering services: practice address Location of patient: address on file Patient Identification confirmed using: Name, : Yes Telehealth method: voice only Patient verbally consented to treatment: Yes Patient verbally consented to billing insurance company: Yes Patient informed of any privacy concerns related to visit: Yes Minutes spent on Phone/Video with Pt.: 53 Coding Level of Care Code Tele Est Pt Level 4 (35372) Diagnoses Class 1 obesity due to excess calories with serious comorbidity and body mass index (BMI) of 33.0 to 33.9 in adult E66.09; Z68.33 Obesity type: due to excess calories Obesity classification: adult class 1 (BMI 30 - 34.9) Serious obesity comorbidity presence: with serious comorbidity Body mass index: BMI 33.0-33.9 Time Spent (min) 53
[2023-04-26 09:58] VITALS: BMI 33.3
== END 2023-04-26 10:10 | disposition home or self-care (01) ==
LOC: HO.HBS 08:02
PROVIDERS: PCP Nurse Practitioner Family; Visit Provider Surgery
DX: E66.09 Other obesity due to excess calories (principal); Z68.33 Body mass index [BMI] 33.0-33.9, adult
CPT/HCPCS: 99443

== ENCOUNTER → 2023-04-26 08:02 | Outpatient (BNVA) | payer OTHER, SELFPAY | PROVIDERS: PCP Nurse Practitioner Family; Visit Provider Surgery ==

== ENCOUNTER 2023-05-27 06:46 | Outpatient (REF) | payer OTHER, SELFPAY ==
[2023-05-27 11:31] LABS: MANUAL DIFF FLAG NO
[2023-05-27 11:37] LABS: Appearance Urine Clear; Color Urine Yellow; Glucose Urine UA Negative (Negative); Leukocyte Esterase Urine Trace (Negative); Nitrite Urine Negative (Negative); Specific Gravity - Urine <= 1.005 (1.005-1.025); UMIC TRIGGER UACC YES; Urine Blood Negative (Negative); Urine Ketones Negative (Negative); Urine Protein Negative (Neg-Trace)
[2023-05-27 11:42] LABS: Basophils Percent Auto 0.2 % (0-2); Eosinophils Absolute Auto 0.2 X10*3/uL (0.0-0.4); Eosinophils Percent Auto 3.5 % (0-4); Hematocrit 40.3 % (37.0-47.0); Hemoglobin 12.7 g/dl (12.0-16.0); Lymphocytes Absolute Auto 2.2 X10*3/uL (1.2-4.9); Lymphocytes Percent Auto 41.5 % (20-40); Mean Corpuscular HGB Conc 31.5 g/dl (31.0-35.0); Mean Corpuscular Hemoglobin 26.9 pg (27.0-33.0); Mean Corpuscular Volume 85.4 fL (80.0-98.0); Mean Platelet Volume 10.6 fL (9.4-12.3); Monocytes Absolute Auto 0.5 X10*3/uL (0.1-1.2); Neutrophils Absolute Auto 2.4 x10*3/uL (2.0-8.3); Neutrophils Percent Auto 45.8 % (45-73); Platelet Count 228 X10*3/uL (160-400); Red Blood Count 4.72 X10*6/uL (4.20-5.50); Red Cell Distribution Width 14.3 % (11.0-16.0); White Blood Count 5.2 X10*3/uL (4.8-10.8)
[2023-05-27 11:44] LABS: Bacteria Urine None Seen (None Seen); Hyaline Casts Urine 0-2 /LPF (0-2); RBC Urine 0-2 /HPF (0-2); Squamous Epithelial Cell Urine 0-2 /HPF (0-2); WBC Urine 0-5 /HPF (0-5)
[2023-05-27 12:02] LABS: Alanine Aminotransferase 12 U/L (0-31); Albumin Level 4.2 g/dL (3.5-5.0); Alkaline Phosphatase 97 U/L (39-117); Anion Gap 11 (12-20); Aspartate Amino Transferase 18 U/L (5-31); Bilirubin Total 0.4 mg/dL (0.0-1.0); Blood Urea Nitrogen 18 mg/dL (9-16); Calcium 9.7 mg/dL (8.4-10.2); Carbon Dioxide 27 mmol/L (22-29); Chloride 106 mmol/L (96-108); Cholesterol 163 mg/dL (<200); Estimated Glomerular Filt Rate > 60; Glucose Fasting 96 mg/dL (60-99); HDL Cholesterol 55 mg/dL (>40); LDL Cholesterol Calculated 95 mg/dL (<100); Potassium 4.6 mmol/L (3.3-5.1); Sodium 139 mmol/L (135-145); Total Protein 7.4 g/dL (6.5-8.0); Triglycerides 65 mg/dL (<150)
[2023-05-27 12:15] LABS: TSH reflex Free T4 1.61 uIU/mL (0.32-4.0)
== END 2023-05-27 06:47 | disposition home or self-care (01) ==
LOC: HO.HMGCLDS 06:46
PROVIDERS: PCP Nurse Practitioner Family; Visit Provider Nurse Practitioner Family
DX: E78.5 Hyperlipidemia, unspecified (principal)
CPT/HCPCS: 36415; 80053; 80061; 81001; 84443; 85025

== ENCOUNTER 2023-06-08 12:44 | Outpatient (AMB) | payer OTHER, SELFPAY ==
--- NOTE | 2023-06-08 12:59 | A.OFFVIS_ITS ---
Intake VS Expanded 06/08/23 13:10 Height 5 ft 2 in Weight 177 lb BMI 32.4 Intake Visit Reasons: TV Pre Op LSG 06/17/23 Allergies tramadol Allergy (Verified 06/08/23 12:59) Itching Medication List - Last Reconciled 06/08/23 by Shaggy Alberto MD albuterol sulfate 90 mcg/actuation 1 puff inhalation QID alendronate 70 mg PO QWEEK 90 days atenolol 50 mg PO DAILY atorvastatin 80 mg PO BEDTIME [chair lift daily use NS] cholecalciferol (vitamin D3) 25 mcg PO DAILY 90 days cyclobenzaprine 5 mg PO TID diclofenac sodium 1% (Arthritis Pain (diclofenac)) 4 grams topical QID PRN 30 days duloxetine 60 mg PO DAILY 90 days hospital bed daily hydroxyzine HCl 25 mg PO DAILY 30 days levothyroxine 112 mcg PO QAM meclizine 12.5 mg PO BID PRN ondansetron 4 mg PO Q12H pantoprazole 40 mg PO DAILY polyethylene glycol 3350 (Miralax) 17 grams PO DAILY rizatriptan take 1 tab at onset of headache; if no relief may repeat 1 tab after at least 2 hrs; max = 3 tabs/24 hr PO sucralfate 10 mL PO BID trazodone 100 mg PO BEDTIME HPI TV Pre Op LSG 06/17/23 HPI Details Start time: 12.50pm, End time: 1.20pm ?I spent 25 minutes speaking with the patient on the phone plus an additional 5 minutes reviewing and updating records for a total of 30 minutes HPI Comments History of Present Illness Details Overall weight loss: 22.7lbs, or 11.4% TBWL 2 premade Premier protein shakes (mix 4oz of the shake with 6oz of low fat unsweetended almond milk) at 7am-9am and 11am-1pm, one Pure protein bar at 3pm- 5pm, dinner at 7pm (8 forks of protein and 8 forks of salad or vegetables) and one premade Premier protein shake (mix 4oz of the shake with 6oz of low fat unsweetended almond milk) at 9pm-11pm. [facility] Medical History (Updated 05/06/23 @ 18:52 by Addi Holland, [facility]-) GERD (gastroesophageal reflux disease) Oropharyngeal dysphagia Gastritis Migraines Dyslipidemia Hypothyroidism Osteoporosis Anxiety Essential hypertension Surgical History History of shoulder surgery History of section History of nasal surgery History of surgery History of carpal tunnel surgery History of neck surgery Family History Father Cancer of prostate Mother HTN (hypertension) Maternal Grandmother Stroke Asthma Brother Substance use disorder Social History Housing: Apartment Alcohol intake: never Patient Tobacco Use Status: Former Tobacco user Years Smoked: 45 years ago e-Cigarette/Vaping Use: Never Used Second Hand Smoke Exposure: No Current occupational status: retired Cognitive needs: No Hearing needs: No Vision needs: No Assessment & Plan Assessment & Plan (1) Obesity: Code(s): E66.9 - Obesity, unspecified Qualifiers: Obesity type: due to excess calories Obesity classification: adult class 1 (BMI 30 - 34.9) Serious obesity comorbidity presence: with serious comorbidity Body mass index: BMI 33.0-33.9 Qualified Code(s): E66.09 - Other obesity due to excess calories; Z68.33 - Body mass index [BMI] 33.0-33.9, adult Plan: 1. Plan for lap sleeve gastrectomy including upper GI endoscopy. All tests has been completed and reviewed and the patient is cleared for the surgery. ?If diaphragmatic or ventral hernias are present at time of surgery, these will be repaired laparoscopically as well. Risks and complications were discussed in detail including possible conversion to an open procedure, anastomotic leak, bleeding requiring transfusion, small bowel obstruction, , DVT and pulmonary embolism, cardiac, or pulmonary complications, as [facility] complications such as anastomotic ulcer, insufficient weight loss and vitamin deficiencies. I emphasized the importance of close follow-up, adherence to instructions and good communication. So far she has proven to be an excellent communicator and very compliant with all our directions accomplishing a great weight loss. I believe that she is an excellent candidate and she is ready. 2. Preop prescriptions were provided and explained the purpose of each one. Need to be purchased preop. Start Pantoprazole now as you get it from the pharmacy, 1 pill per day. Sucralfate and Zofran are for after surgery as needed. 3. Bowel prep: please do 7 packets ?of Miralax mixing each one with a an 8oz glass of water, crystal light, gatorade zero, or propel ?on 06/15/23 and the same amount on 06/16/23. The Miralax you begin with one packet at a time in 8oz water or crystal light, gatorade zero, or propel ?as early in the day as you can and you do them back to back until you finish them. Continue the protein shakes during? the bowel prep. 4. Needs to purchase 1oz medicine cups . 5. Needs to purchase Children's liquid Tylenol for postop pain control. 6. She needs to stop the Cyclobenzarpine today. Avoid aspirin, motrin, Advil, Aleve, Ibuprofen, Naproxyn. Tylenol is OK. 7. She needs to purchase the Celebrate 4:1 protein shakes from the hospital's gift shop. 8. Will do basic preop blood work-up any day between tomorrow 06/09/23 and Wednesday06/11/23 fasting for 12 hours and is scheduled to see the Anesthesiologist prior to the day of surgery. 9. You must check your blood pressure every morning. If your blood pressure is: Below 120/70: do not take the Atenolol 121/71 to 130/80: take half pill of the Atenolol Over 131/81: take the whole pill of Atenolol 10. Importance of adherence to postop folllow-up and recommendations was underscored and she understands that. 11. Stop food and bars as of tomorrow 06/09/23 and continue with one premade Premier protein shake (mix ONLY 2oz of Premier in 6oz almond milk) at 7am-9am and another 4 Premier premade protein shakes (mix 4oz of Premier with 4oz almond milk for each) at 10am-12pm, 1pm-3pm, 4pm-6pm and 7pm-9pm. 12. No soups, broths or V8 13. The patient's?medical?history has been reviewed and they are considered low risk for post op DVT and therefore DVT prophylaxis is not considered necessary. Travel after surgery was reviewed. The patient has not disclosed any travel plans during the first 30 days after surgery and they have been advised that within the first 30 days after surgery any bus, plane, train or car travel over 2 hours in duration is contraindicated due to the possibility of developing blood clots from immobility. Any travel, needs to include periods of ambulation of 10 minutes in duration every 2 hours.? Patient was instructed to discuss any plans for travel during this period with their bariatric surgeon.? 14. Please take at the day of surgery the following medications: Atenolol depend ing on the blood pressure readings as you see above 15. Absolutely no smoking or vaping, or marijuana until the surgery and for at least the first 4 weeks. Only nicotine patches are allowed. 16. Send me weight measurements tomorrow 06/09/23 after you fix your scale and then on 06/16/23 the day of surgery before you go to the hospital. 17. Avoid any steroids by mouth for any reason. Let me know if someone prescribes them to you 18. These instructions supersede anything else you read in the handbook, anything you watched in videos or classes or you were told by any other provider. If there is any conflict, you follow the above instructions and nothing else. Orders: Orders TSH reflex Free T4 Today E03.9 - Hypothyroidism, unspecified, E66.9 - Obesity, unspecified, E78.5 - Hyperlipidemia, unspecified Partial Thromboplastin Time Today E03.9 - Hypothyroidism, unspecified, E66.9 - Obesity, unspecified, E78.5 - Hyperlipidemia, unspecified Insulin Today E03.9 - Hypothyroidism, unspecified, E66.9 - Obesity, unspecified, E78.5 - Hyperlipidemia, unspecified Lipid Panel Today E03.9 - Hypothyroidism, unspecified, E66.9 - Obesity, unspecified, E78.5 - Hyperlipidemia, unspecified Type and Screen Today E03.9 - Hypothyroidism, unspecified, E66.9 - Obesity, unspecified, E78.5 - Hyperlipidemia, unspecified Hemoglobin A1c Today E03.9 - Hypothyroidism, unspecified, E66.9 - Obesity, unspecified, E78.5 - Hyperlipidemia, unspecified Comprehensive Met. Panel Today E03.9 - Hypothyroidism, unspecified, E66.9 - Obesity, unspecified, E78.5 - Hyperlipidemia, unspecified Medications: New sucralfate 10 mL PO BID 600 mL 2RF K21.9 - Gastro-esophageal reflux disease without esophagitis ondansetron Only take one every 12 hours as needed if you have nausea 4 mg PO Q12H 20 tabs 0RF nausea and vomiting R11.0 - Nausea polyethylene glycol 3350 (Miralax) Mix each packet with 8oz of water, Crystal light, or Gatorade zero, or Propel and do 7 packets on 06/15/23 and another 7 packets on 06/16/23 17 grams PO DAILY 14 ea 0RF Z01.818 - Encounter for other preprocedural examination Telehealth Telehealth Location of provider rendering services: practice address Location of patient: address on file Patient Identification confirmed using: Name, : Yes Telehealth method: voice only Patient verbally consented to treatment: Yes Patient verbally consented to billing insurance company: Yes Patient informed of any privacy concerns related to visit: Yes Minutes spent on Phone/Video with Pt.: 30 Coding Level of Care Code Tele Est Pt Level 4 (74513) Diagnoses Class 1 obesity due to excess calories with serious comorbidity and body mass index (BMI) of 33.0 to 33.9 in adult E66.09; Z68.33 Obesity type: due to excess calories Obesity classification: adult class 1 (BMI 30 - 34.9) Serious obesity comorbidity presence: with serious comorbidity Body mass index: BMI 33.0-33.9 Time Spent (min) 30
[2023-06-08 13:10] VITALS: BMI 32.4
== END 2023-06-08 13:21 | disposition home or self-care (01) ==
LOC: HO.HBS 12:44
PROVIDERS: PCP Nurse Practitioner Family; Visit Provider Surgery
DX: E66.09 Other obesity due to excess calories (principal); Z68.33 Body mass index [BMI] 33.0-33.9, adult
CPT/HCPCS: 99499

== ENCOUNTER 2023-06-08 13:08 | Outpatient (REF) | payer OTHER, SELFPAY ==
--- NOTE | ~2023-06-08 | XR_ITS ---
EXAMINATION: XR CHEST CLINICAL INFORMATION: Cough unspecified. COMPARISON: 10/23/2022 TECHNIQUE: 2 views of the chest were obtained. FINDINGS: There is no gross pneumothorax. Cardiac silhouette remains borderline enlarged. Redemonstration of ACDF hardware overlying the lower cervical spine. There is no gross pneumothorax. Increased retrocardiac opacities may represent atelectasis and/or pneumonia. Mild degenerative changes in the thoracic spine. Possible trace pleural effusion. XR/XR chest 2V IMPRESSION: Increased retrocardiac opacities may represent atelectasis and/or pneumonia. Possible trace pleural effusion. Recommend follow-up imaging in 4-6 weeks to confirm resolution and exclude underlying pathology. This study was presented today 06/09/2023 for interpretation. PSA staff will provide results to referring provider at this time.
[2023-06-08 11:51] VITALS: PULSE 82; RESP 16; O2SAT 98
--- NOTE | 2023-06-08 15:40 | PFT_ITS ---
Flows: FEV1: 76 % of predicted at 1.53 L FVC: 81 % of predicted at 2.10 L FEV1/FVC: 73 % Bronchodilator response: Absent Volumes: No lung volumes measurements performed secondary to a technical issue. Diffusion capacity: Normal Impression: No obstructive ventilatory defect, suggestion of underlying restrictive ventilatory defect. No bronchodilator response. No lung volumes measurements performed secondary to a technical issue. MTDD
== END 2023-06-08 13:09 | disposition home or self-care (01) ==
LOC: HO.RESP 13:08
PROVIDERS: PCP Nurse Practitioner Family; Visit Provider Surgery
DX: Z01.818 Encounter for other preprocedural examination (principal); E66.09 Other obesity due to excess calories; R05.9 Cough, unspecified; E78.5 Hyperlipidemia, unspecified; E03.9 Hypothyroidism, unspecified; K21.9 Gastro-esophageal reflux disease without esophagitis; R11.0 Nausea; Z71.3 Dietary counseling and surveillance; Z68.33 Body mass index [BMI] 33.0-33.9, adult; Z79.899 Other long term (current) drug therapy
CPT/HCPCS: 71046; 94010; 94640; 94727; 94729

== ENCOUNTER → 2023-06-08 15:40 | Outpatient (BNV) | payer OTHER, SELFPAY | PROVIDERS: PCP Nurse Practitioner Family; Visit Provider Internal Medicine Pulmonary Disease | DX: R05.9 Cough, unspecified (principal) | CPT/HCPCS: 94060; 94729 ==

== ENCOUNTER → 2023-06-11 08:02 | Outpatient (BNVA) | payer OTHER, SELFPAY | PROVIDERS: PCP Nurse Practitioner Family; Visit Provider Physician Assistant Surgical ==

== ENCOUNTER 2023-06-17 05:56 | Inpatient (IN) | payer OTHER, SELFPAY ==
[2023-06-10 15:22] VITALS: BMI 32.4
[2023-06-11 08:00] LABS: MANUAL DIFF FLAG NO
[2023-06-11 08:10] LABS: Basophils Percent Auto 0.2 % (0-2); Eosinophils Absolute Auto 0.1 X10*3/uL (0.0-0.4); Eosinophils Percent Auto 2.5 % (0-4); Hematocrit 42.9 % (37.0-47.0); Hemoglobin 13.9 g/dl (12.0-16.0); Imm Gran Abs Auto 0.01 X10*3/uL (0.00-0.03); Imm Gran Pct Auto 0.2 % (0.0-0.4); Lymphocytes Absolute Auto 2.1 X10*3/uL (1.2-4.9); Lymphocytes Percent Auto 37.4 % (20-40); Mean Corpuscular HGB Conc 32.4 g/dl (31.0-35.0); Mean Corpuscular Volume 83.5 fL (80.0-98.0); Mean Platelet Volume 9.5 fL (9.4-12.3); Monocytes Absolute Auto 0.5 X10*3/uL (0.1-1.2); Monocytes Percent Auto 8.7 % (2-11); Neutrophils Absolute Auto 2.8 x10*3/uL (2.0-8.3); Platelet Count 235 X10*3/uL (160-400); Red Blood Count 5.14 X10*6/uL (4.20-5.50); Red Cell Distribution Width 13.8 % (11.0-16.0); White Blood Count 5.5 X10*3/uL (4.8-10.8)
[2023-06-11 08:16] LABS: Partial Thromboplastin Time 35.5 SEC (26.0-36.8)
[2023-06-11 08:21] LABS: Estimated Average Glucose 117 mg/dL; Hemoglobin A1c % 5.7 % (<6.0)
[2023-06-11 09:04] LABS: Alanine Aminotransferase 13 U/L (0-31); Albumin Level 4.6 g/dL (3.5-5.0); Alkaline Phosphatase 111 U/L (39-117); Anion Gap 15 (12-20); Aspartate Amino Transferase 18 U/L (5-31); Bilirubin Total 0.6 mg/dL (0.0-1.0); Blood Urea Nitrogen 19 mg/dL (9-16); C Reactive Protein 0.51 mg/dL (< or = 0.50); Calcium 10.6 mg/dL (8.4-10.2); Carbon Dioxide 29 mmol/L (22-29); Chloride 103 mmol/L (96-108); Cholesterol 172 mg/dL (<200); Creatinine Clr Calc Pharmacy 53.8; Estimated Glomerular Filt Rate 59; Glucose Random 92 mg/dL (60-115); HDL Cholesterol 54 mg/dL (>40); LDL Cholesterol Calculated 106 mg/dL (<100); Potassium 4.8 mmol/L (3.3-5.1); Sodium 142 mmol/L (135-145); Triglycerides 63 mg/dL (<150)
[2023-06-11 09:14] LABS: Insulin 6 uU/mL (2-29); TSH reflex Free T4 0.92 uIU/mL (0.32-4.0)
--- NOTE | 2023-06-15 14:19 | P.CONAN_ITS ---
Documented by User: Kelly Danielle NP 06/15/23 14:21 HPI - Anesthesia Eval Consult details Narrative: 72yo F for Gastrectomy Sleeve,EGD,possible diaphragmatic hernia,possible ventral hernia,possible open, PMFSH Active Problems Active Problems: All Active Problems (Updated 06/10/23 @ 15:17 by Liya Spain RN) Hiatal hernia (Acute) Presbyesophagus (Acute) BMI 33.0-33.9,adult (Acute) Dysphagia (Acute) PTSD (post-traumatic stress disorder) (Acute) Depression (Acute) BMI 34.0-34.9,adult (Acute) Preop cardiovascular exam (Acute) Dizziness (Acute) Obesity (Acute) Sacroiliac joint dysfunction (Acute) Cervical spondylosis (Acute) Acute bronchitis (Acute) Obstructive sleep apnea (Acute) Sinus tachycardia (Acute) Hypothyroid (Acute) Cervical postlaminectomy syndrome (Acute) Right hip pain (Acute) Memory loss (Acute) Chronic pain (Acute) Radiculopathy, cervical (Acute) Palpitations (Acute) Low back pain radiating to lower extremity (Acute) Right shoulder pain (Acute) Physical exam (Acute) Pre-op evaluation (Acute) Chest tightness (Acute) Hordeolum external (Acute) Shortness of breath (Acute) Right elbow pain (Acute) Fall (Acute) Essential hypertension (Acute) Anxiety (Acute) Dyslipidemia (Acute) Osteoporosis (Acute) Hypothyroidism (Acute) Migraines (Acute) Past Medical History Medical History PONV (postoperative nausea and vomiting) GERD (gastroesophageal reflux disease) Oropharyngeal dysphagia Gastritis Migraines Dyslipidemia Hypothyroidism Osteoporosis Anxiety Essential hypertension Family History Family History Father Cancer of prostate Mother HTN (hypertension) Maternal Grandmother Stroke Asthma Brother Substance use disorder Family history of problems with anesthesia: No Surgical History Surgical History History of shoulder surgery History of section History of nasal surgery History of surgery History of carpal tunnel surgery History of neck surgery History of Problems with Anesthesia: Yes (PONV) Social History Social History Household Members: Spouse Housing: Apartment Are you a primary health care facilities inspector to a significant other at home: Yes (, he 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 If so, by whom?: No Are you DNR?: No Advance Directives: No Advance Directives Information Provided: Yes Advance Directives on File: No Recently lost weight without trying: No Nutrition Risks: No Nutritional Risk Current occupational status: retired Cognitive needs: No Hearing needs: No Vision needs: No Meds Allergies Allergy/AdvReac Type Severity Reaction Status Date / Time tramadol Allergy Severe Itching Verified 06/17/23 06:05 Home Medications Medication Instructions Recorded Confirmed Last Taken Type atorvastatin 80 mg tablet 80 mg PO BEDTIME 08/27/22 06/10/23 Unknown History trazodone 100 mg tablet 100 mg PO BEDTIME 09/04/22 06/10/23 Unknown History Exam Height,Weight and Vital Signs: Height 5 ft 2 in Weight 80.286 kg Pertinent Lab Results Pertinent Lab Results: Laboratory Tests 06/11/23 06/11/23 07:39 07:58 WBC 5.5 RBC 5.14 Hgb 13.9 Hct 42.9 MCV 83.5 MCH 27.0 MCHC 32.4 RDW 13.8 Plt Count 235 MPV 9.5 Immature Gran % (Auto) 0.2 Neut % (Auto) 51.0 Lymph % (Auto) 37.4 [place] % (Auto) 8.7 Eos % (Auto) 2.5 Baso % (Auto) 0.2 Lymph # (Auto) 2.1 [place] # (Auto) 0.5 Eos # (Auto) 0.1 Baso # (Auto) 0.0 Abs Immat Gran (auto) 0.01 Absolute Neuts (auto) 2.8 Absolute Nucleated RBC 0.000 Nucleated RBC % (auto) 0.0 APTT 35.5 Sodium 142 Potassium 4.8 Chloride 103 Carbon Dioxide 29 Anion Gap 15 BUN 19 H Creatinine 0.94 Estim Creat Clear Calc 53.8 Estimated GFR 59 Random Glucose 92 Estimat Average Glucose 117 Hemoglobin A1c % 5.7 Insulin Level 6 Calcium 10.6 H D Total Bilirubin 0.6 AST 18 ALT 13 Alkaline Phosphatase 111 C-Reactive Protein 0.51 H Total Protein 8.0 Albumin 4.6 Triglycerides 63 Cholesterol 172 LDL Cholesterol, Calc 106 H HDL Cholesterol 54 TSH 0.92 Blood Type O Positive Antibody Screen NEGATIVE Narrative Narrative: EKG 10/2022 Vent. Rate : 075 BPM Atrial Rate : 075 BPM P-R Int : 176 ms QRS Dur : 086 ms QT Int : 420 ms P-R-T Axes : 056 -08 026 degrees QTc Int : 469 ms Normal sinus rhythm Normal ECG No previous ECGs available ECHO 2021 Conclusions: - 1. Normal LV systolic function with grade 1 diastolic dysfunction 2. Normal cardiac valvular Doppler 3. Normal RV systolic pressure 4. No gross pericardial effusion Holter 2021 Conclusion: 1. Patient was monitored for total period of 3 days 2. Baseline was normal sinus rhythm with average heart of 98 beats per minute 3. Frequent sinus tachycardia noted with heart rate greater than 100 beats per minute 23% of the time 4. Rare ectopy noted 5. No significant pauses or bradycardia noted 6. No patient reported events Assessment and Plan Assessment Anesthesia Assessment: Chart Reviewed Final Anesthetic Review Family History of Problems with Anesthesia: No History of Problems with Anesthesia: Yes (PONV) Documented by User: Aries Go MD 06/17/23 07:19 [facility] Past Medical History Medical History PONV (postoperative nausea and vomiting) GERD (gastroesophageal reflux disease) Oropharyngeal dysphagia Gastritis Migraines Dyslipidemia Hypothyroidism Osteoporosis Anxiety Essential hypertension Family History Family History Father Cancer of prostate Mother HTN (hypertension) Maternal Grandmother Stroke Asthma Brother Substance use disorder Family history of problems with anesthesia: No Surgical History Surgical History History of shoulder surgery History of section History of nasal surgery History of surgery History of carpal tunnel surgery History of neck surgery Social History Social History Household Members: Spouse Housing: Apartment Are you a primary health care facilities inspector to a significant other at home: Yes (, he 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 If so, by whom?: No Are you DNR?: No Advance Directives: No Advance Directives Information Provided: Yes Advance Directives on File: No Recently lost weight without trying: No Nutrition Risks: No Nutritional Risk Current occupational status: retired Cognitive needs: No Hearing needs: No Vision needs: No Meds Allergies Allergy/AdvReac Type Severity Reaction Status Date / Time tramadol Allergy Severe Itching Verified 06/17/23 06:05 Home Medications Medication Instructions Recorded Confirmed Last Taken Type atorvastatin 80 mg tablet 80 mg PO BEDTIME 08/27/22 06/10/23 Unknown History trazodone 100 mg tablet 100 mg PO BEDTIME 09/04/22 06/10/23 Unknown History Exam Airway Mallampati Class: II TM Dist: >3cm Neck ROM: Full Loose/Missing/Broken Teeth: No Heart: rrr+[id number] Lungs: cta b/l Assessment and Plan Assessment Anesthesia Assessment: Anesthesia Plan Discussed Final Anesthetic Review Family History of Problems with Anesthesia: No NPO: Yes ASA Class: III Final Preanesthetic Review: No Changes in Pt Med Stat, Meds/Allgs Chart Reviewed, Consent Obtained/Reviewed and Anes Risks/Benef Reviewed Patient Risk: Intermediate Procedure Risk: Intermediate Assessment/Block/Sedation in SS: Assess/Block/Sedation-SS Anesthetic Plan Anesthetic Plan: GA Disposition: Standard PACU
[2023-06-17] VITALS (13 sets, daily range): BP systolic 112–163; BP diastolic 66–90; PULSE 85–99; RESP 14–18; TEMP 35.9–36.8; O2SAT 95–100; BMI 31.1
[2023-06-17] MEDS: Lactated Ringers 1,000 ML 100 ML IVCONT ×3 (06:24→23:16)
[2023-06-17] MEDS: Lactated Ringers 1,000 ML 999 ML IV (06:24)
[2023-06-17] MEDS: Aprepitant 32 MG/4.4 ML VIAL IVPUSH (06:25)
--- NOTE | 2023-06-17 07:38 | MHC.SHP ---
Pre-Procedural Eval Section A - 24 Hr Update-Section A only Date of Service: 06/17/23 The patient is an INPATIENT: Yes The patient has been examined within 24 hours of the surgical procedure. The History & Physical has been completed within 30 days and I have reviewed it.: Yes Section B - Complete if H&P > 30 days Chief Complaint: Obesity Relevant Family History (Specify if Yes): Yes Relevant Social History: None Present Medications: None Medical History: No relevant PMH History of Previous Operations: No relevant previous surgery Allergies: Allergies Allergy/AdvReac Type Severity Reaction Status Date / Time tramadol Allergy Severe Itching Verified 06/17/23 06:05 Review of Systems Sugical H&P ROS: Negative: Constitution, Cardiovascular, Respiratory, Neurological, Psychiatric, Hem-Onc, Allergic/Immunologic, Gastrointestinal, Genitourinary, Musculoskeletal, Integumentary, Endocrine and Eyes/Ears/Nose/Throat Exam Surgical H&P Exam: Normal: HEENT, Normal: Heart, Normal: Lungs, Normal: Extremities, Normal: Abdomen, Normal: Skin and Normal: Neurological Plan Diagnosis/Plan: Unchanged I have reviewed the history and physical and performed a pertinent physical examination on my patient. No changes have occurred unless specified. Time Spent With Patient Time: Total time managing care of this patient today ____ minutes.
--- NOTE | 2023-06-17 10:43 | P.BOP_ITS ---
Brief Operative Note Date of Service: 06/17/23 Pre-op diagnosis: Severe obesity with comorbidities (see below) Post-op diagnosis: same Procedure: INITIAL PATIENT BMI ON PRESENTATION AT OUR OFFICE: 36.5 kg/m2 LAST BMI BEFORE SURGERY: 32.3kg/m2 COMORBIDITIES: Hyperlipidemia, hypertension, osteoporosis, GERD, back pain, depression, anxiety, hypothyroidism, migraines, insomnia, liver fibrosis ?The patient presented to the Weight Management Program with significant obesity that was negatively impacting the patient's comorbidities as listed above.? The program is a phased program with a special focus on preoperative medical weight management to promote substantial weight loss and prepare the patients for the second phase of the program: bariatric surgery. The patient participated in an intensive weekly lifestyle ?intervention and exercise program during which the patient ?has lost between the initial office visit and the last preoperative visit 27.1 lbs, or 13.5%% of initial actual body weight. It was deemed appropriate for the patient to now have bariatric surgery. In light of the current Covid-19 pandemic and the well documented strong association of obesity and increased risk of worse outcomes if infected with Covid-19 (REFERENCES: https://pubmed.ncbi.nlm.nih.gov/19919764/ ,? https://pubmed.ncbi.nlm.nih.gov/45897342/ ), any delay in undergoing bariatric surgery may lead to the patient's worsening health condition and increased?risk of more severe Covid-19 disease if infected. In addition a recent?study from [facility] published in [facility] Surgery on 04/07/2021 (file:///C: /[email or web address] f) found that, among patients with obesity, substantial weight loss achieved with surgery was associated with improved outcomes of COVID-19 infection. The findings suggest that obesity can be a modifiable risk factor for the severity of COVID-19 infection. In addition, the patient met the BMI-criteria for bariatric surgery based on the BMI on initial presentation. The patient should not be penalized for achieving such weight loss because ?it is not sustainable long-term without surgical intervention and it was achieved in preparation for bariatric surgery ?under my direction and based on my published research ([email or web address]:/[email or web address]).pdf and? https://www.soard.org/article/[email or web address](82)93717-X/pdf ) ?that a 10% preoperative weight loss improves long-term weight loss after surgery and reduces perioperative complications.? Insurance carriers such as [facility] have endorsed my recommendations ?and have included in their policies criteria to include a 10% preoperative weight loss requirement. PROCEDURE: Esophago-gastroscopy, laparoscopic sleeve gastrectomy and laparoscopic gastropexy INDICATIONS: This is a 72 year-old female who was electively scheduled for laparoscopic, possibly open sleeve gastrectomy. The risks and complications of the procedure were discussed with the patient in advance, particularly the possibility of ; pulmonary embolism; staple line leak; bleeding; GERD; cardiac, pulmonary, or renal complications; as well as long-term problems such as insufficient weight loss, vitamin deficiency, strictures, or ulcers. The patient understood all the risks, and was in agreement to proceed with surgery. DESCRIPTION OF PROCEDURE: After informed consent was obtained from the patient, the patient was given preoperative antibiotics, and was transferred to the operating room. After successful induction of general anesthesia, pneumatic compression devices were placed on both lower extremities. An upper endoscopy was performed next. The oropharynx and esophagus appeared to be within normal limits. There was no diaphragmatic hernia present. The stomach was entered. Then after all fluid and air were suctioned and the stomach was fully decompressed, the scope was withdrawn and secured in the mid esophagus. The patient was then prepped and draped in the usual sterile manner, and abdominal access was established at the right upper quadrant with the Camila technique. A 12 mm blunt port was inserted, and the abdomen was insufflated with CO2 to a pressure of 15 mmHg. Under direct visualization, additional ports were placed, specifically two 5 mm Versi-step ports to the left upper quadrant, and a 5 mm Versi-Step port to the right upper quadrant. 1% lidocaine plain was used to infiltrate all port sites as well as all fascia defects. Following that, the patient was placed in a steep reverse Trendelenburg position. An additional 5 mm port was placed to the right flank for the Mediflex retractor that was used to retract the left lobe of the liver. The gastro-esophageal fat pad was opened with the ultrasonic device (Lockboxgissellee rbeat, Olympus) and the anterior esophagus and hiatus were exposed. The angle of His was opened with the ultrasonic device the fundus of the stomach from any diaphragmatic and splenic attachments. I then opened the gastrocolic ligament between the transverse colon and the greater curvature of the stomach with the ultrasonic device to enter the lesser sac and facilitate the ligation of the short gastric vessels. I started at a mid-point along the greater curvature and using the Thunderbeat, all short gastric vessels were divided all the way to the angle of His until the left yuan was completely dissected at its entirety. I then divided the gastro-colic ligament distally to a distance of about 3-4 cm proximal to the pylorus. The stomach was then divided transversely with three Endo JORDIN-45 purple and four JORDIN-60 articulating purple loads using the Kinetic stapler and loads. Every effort was made that the gastric sleeve had a tubular shape and an even caliber throughout. Once the sleeve resection was completed, the staple line of the gastric sleeve was reinforced with Hemoclips. The resected stomach was retrieved without difficulty from the Camila port. A gastropexy was then performed in order to prevent postoperative GERD and partial gastric volvulus. Several interrupted 2.0 Surgidac sutures were placed between the sleeve's staple line and the previously divided greater omentum and gastro-colic ligament using the Endo-Stitch device. ?An upper endoscopy was performed. There was no narrowing at the GE junction. The scope was easily advanced all the way to the pylorus which was clearly visualized. There was no narrowing anywhere and the sleeve's caliber was even throughout. The sleeve's staple line was inspected and there was no evidence of ischemia, bleeding or dehiscence. At that point the gastroscope was withdrawn from the patient?s mouth while we were decompressing the bowel and the stomach from any remaining air. I looked into the lesser sac to see how the sleeve was situating and it was situating well. There was no bleeding from the staple line, spleen, or short gastric vessels. The Mediflex retractor was removed, and the undersurface of the liver was inspected and there was no bleeding. The patient was placed in supine position. I closed the fascial defect of the 12 mm port site with a figure of eight #1 Polysorb suture. Then 30cc Ropivacaine plain with 10 mg of Dexamethasone were used to infiltrate the fascial closure as well as all skin incisions. At this point, the abdomen was deflated, all ports were removed under direct vision, and no bleeding was noted from any of the port sites. The skin incisions were irrigated with saline and were closed with 4-0 absorbable monofilament sutures. Steri-Strips and OpSites were used to cover all incisions. The patient was extubated and was transferred in stable condition to the recovery room for further care. I was present and performed all álvarez parts of the procedure. Mr Carrion was the [facility] t trade sales assistant. There were no residents to assist with this case. Qasim Alberto MD, PhD, FACS Surgeon: Shaggy Alberto MD Anesthesia: GETA, local and other (TAP block) Was an Mechanical Maintenance Supervisor used for this Procedure?: No Mechanical Maintenance Supervisor: Thomas Carrion Estimated blood loss (mL): 10 IV fluids (mL): 3,000 Urine output (mL): 0 (NO More to record output) Pathology: other (Stomach) Condition: stable Disposition: PACU
--- NOTE | 2023-06-17 10:46 | P.DS_ITS ---
DS: Providers Provider Date of Service: 06/18/23 Date of admission: 06/17/23 05:56 Primary care physician: Addi Holland [facility] DS: Summary Hospital Course Hospital Course: ADMITTING DIAGNOSIS: obesity, htn, hld, depression, hypothyroid ? DISCHARGE DIAGNOSIS: same, s/p laparoscopic sleeve gastrectomy ? PAST SURGICAL HISTORY: carpal tunnel, cesarian section, septoplasty, neck surgery ? PROCEDURE: upper endoscopy, laparoscopic sleeve gastrectomy ? DISCHARGE SUMMARY: ? History of Present Illness: ? The patient is a?72 year-old woman with a BMI of?36.5 kg/m2 and associated co- morbidities as described above. The patient had extensive work-up,lost?23.2 lbs preoperatively and was electively scheduled for laparoscopic, possible open sleeve gastrectomy and gastropexy. Risks and complications of the surgery were discussed with the patient in advance, particularly the possibility of , pulmonary embolism, anastomotic leak, bleeding, bowel injury, GERD, cardiac, renal or pulmonary complications. The patient understood all the risks and was in agreement with the surgical plan. ? Hospital Course: ? The patient underwent an uneventful laparoscopic sleeve gastrectomy with gastropexy on the day of admission. Postoperatively, the patient was transferred to the surgical floor. The patient received IV Acetaminophen and IV dilaudid for pain control. Patient was started on bariatric phase 1 diet POD #0. On postoperative day one, the patient was feeling well without nausea, vomiting, fevers, or tachycardia. The patient had some mild incisional pain and the abdomen was soft. ? On the morning of postoperative day one, the patient was continued on 1 ounce of water or ice every half hour. During the day, the patient did fairly well, having some incisional pain, but able to ambulate adequately and to tolerate liquids well. ? Since the patient is doing well, we decided that the patient was ready to be discharged. The patient was given instructions to follow-up with me next week and to call my office for any fever over 101, persistent abdominal pain, nausea, vomiting, GERD, symptoms of DVT such as calf tenderness, or leg swelling, or pulmonary embolism such as chest pain or shortness of breath. The patient was also instructed to drink 40-60 ounces of liquids per day using the 1-ounce cups. The patient had been given prescriptions for Tylenol for pain, Zofran prn for nausea, and pantoprazole and carafate previously. The patient was encouraged to ambulate and use the incentive spirometer. The patient was allowed to shower, but no baths, and encouraged to stay active at home. All of these instructions were given to the patient personally. All questions were answered and the patient understood all instructions, the instructions were also given to the patient in print. Time Attestation Discharge Coordination Time (in mins): <30 Quality: Safe Use of Opioids Does Pt have an Active Cancer Diagnosis on the Problem List?: No Quality: Stroke Does the patient have a stroke diagnosis?: No Physical Exam Vital Signs: Vital Signs: Last Vital Signs Temp 98.2 F 06/17/23 06:28 Pulse 93 06/17/23 06:28 Resp 18 06/17/23 06:28 BP 117/69 06/17/23 06:28 Pulse Ox 97 06/17/23 06:28 O2 Del Method Room Air 06/17/23 06:28 BMI result Body Mass Index 31.1 DS: Data Data Completed and Pending Pending studies at discharge: Pending at discharge 06/17/23 09:30 Surgical [PTH] Routine Discharge Plan Discharge Anticipated Discharge Date/Time: 06/18/23 10:00 Patient Disposition: Home, Self-Care Discharge Diagnosis: s/p laparoscopic sleeve gastrectomy Referrals: Addi Holland FNP-BC [Primary Care Provider] - 1 Week Discharge Medications: Continued atorvastatin 80 mg tablet 40 mg PO BEDTIME pantoprazole 40 mg tablet,delayed release (DR/EC) 40 mg PO DAILY Qty: 90 1RF hydroxyzine HCl 25 mg tablet 25 mg PO DAILY 30 Days Qty: 30 0RF levothyroxine 112 mcg tablet 112 mcg PO QAM Qty: 90 1RF rizatriptan 10 mg tablet See Rx Instructions PO .COMPLEX Qty: 14 3RF Rx Instructions: take 1 tab at onset of headache; if no relief may repeat 1 tab after at least 2 hrs; max = 3 tabs/24 hr PO albuterol sulfate 90 mcg/actuation HFA aerosol inhaler 1 puff inhalation QID Qty: 8.5 0RF duloxetine 60 mg Capsule,Delayed Release(Dr/Ec) 60 mg PO BID PRN (Reason: Agitation) meclizine 12.5 mg tablet 12.5 mg PO BID PRN (Reason: dizziness) Qty: 14 0RF alendronate 70 mg tablet 70 mg PO QWEEK 90 Days Qty: 13 1RF trazodone 100 mg tablet 150 mg PO BEDTIME sucralfate 100 mg/mL suspension 10 ml PO BID Qty: 600 2RF ondansetron 4 mg tablet,disintegrating 4 mg PO Q12H Qty: 20 0RF Rx Instructions: Only take one every 12 hours as needed if you have nausea Held atenolol 50 mg tablet 50 mg PO DAILY Qty: 90 1RF Hold Instructions: Resume on 06/19/23. Check your blood pressure every morning as soon as you wake up and send it to Dr. Alberto. Do no take the blood pressure medication if the blood pressure is below 120/70. Wait every day to hear back from Dr. Alberto before you take the medication. Discontinued cholecalciferol (vitamin D3) 25 mcg (1,000 unit) tablet 25 mcg PO DAILY 90 Days Qty: 90 1RF diclofenac sodium [Arthritis Pain (diclofenac)] 1 % gel 4 g topical QID PRN (Reason: pain) 30 Days Qty: 100 5RF Rx Instructions: apply to single knee, ankle, foot; for foot includes sole/toes/top of foot polyethylene glycol 3350 [Miralax] 17 gram powder in packet 17 g PO DAILY Qty: 14 0RF Rx Instructions: Mix each packet with 8oz of water, Crystal light, or Gatorade zero, or Propel and do 7 packets on 06/15/23 and another 7 packets on 06/16/23 No Action (DME) hospital bed Kit See Rx Instructions .Route Qty: 1 0RF Rx Instructions: daily (DME) chair lift See Rx Instructions .Route .MEDSUPPLY Qty: 1 0RF Rx Instructions: daily use Discharge Orders: Discharge Order (Routine); Ordered 06/18/23 Ordered By: Shaggy Alberto Activity on Discharge: No heavy lifting Stand Alone Forms: Patient Portal Discharge page Care Plan Goals: weight loss Health Concerns: obesity Plan of Treatment: No tub baths, sex or returning to work until discussed at first post op appointment. No exercise, alcohol, tobacco or illegal drug use. Continue to use incentive spirometer hourly while awake. Walk in home for 5- 10 minutes every 2 hours during the first week. Follow all instructions in the bariatric handbook and call with any qu estions.Discharge Instructions 1. Please call your doctor or come back to the emergency room should any new symptoms arise. 2. You will receive a courtesy call from [facility] 24-48 hours after discharge. 3. Activity: abstain from alcohol, practice limited stair climbing, no bending, no driving, no exercise, no illicit substances, no lifting, no sex, no tub bath, no work. 4. Diet: continue as discussed with Dr. Alberto. 5. Dressing Change/Wound Care: Your incision is covered by clear bandages and guaze underneath. If the area is tender, you may apply an ice pack for short intervals (no more than 20 minutes on, followed by at least 20 minutes off). Do not apply heat. Do not use creams, lotions, or topical antibiotics unless instructed to do so by your surgeon. These can cause infection or allergic reaction. 6. Call your doctor if: - Your temperature exceeds 101.5 F - You experience excessive pain or swelling - You have an unexpected reaction to medication - You have excessive bleeding - You experience continued vomiting/nausea - Your incision begins to separate - Your incision shows signs of infection such as increased redness, swelling, excessive pain, heat, or drainage (light blood or clear fluid is normal) 7. General instructions: No lifting greater than 5 lbs for 1 week and not more than 20lbs the next 3?weeks. No driving until seen at the office in 5-7 days after surgery. If you do not move your bowels in the next 2 days, please tell?Dr. Alberto. Please walk around your home every hour or two to prevent blood clots from forming in your legs. You do not need to wake from sleeping to walk. Please sleep in a bed or couch to prevent kinking at the hips and knees. Please take your incentive spirometer (your lung editorial manager) home with you and use it for the next few days to prevent pneumonia. You may shower, no hot tubs, baths or swimming pools.?Please follow the post op diet instructions you are?given by Dr Alberto? and text me daily at 5-6pm for an update.?If you have any issues or concerns or questions please communicate this to him via text.? The Celebrate shakes have all of the bariatric vitamins you need if you consume these shakes. If you are drinking other protein shakes, you will need to purchase the Celebrate multivitamins and calcium that are available in the hospital gift shop on the first floor of the main hospital.??Do not take anything without first discussing with Dr Alberto. Please make sure you are consuming at least 40 ounces of fluids per day starting the?day AFTER your discharge from the hospital. Always drink 1-2 ml per minute using the 5ml?syringe. If you drink faster you may experience?bloating,?gas pain, burping, nausea or heartburn. In that case please slow down your pace and use the syringe to?understand better the?proper?pace and volume of drinking. Do not hesitate to contact the office with any questions at . The patient's medical history has been reviewed and they are considered low risk for post op DVT and therefore DVT prophylaxis is not considered necessary. Travel after surgery was reviewed. The patient has not disclosed any travel plans during the first 30 days after surgery and they have been advised that within the first 30 days after surgery any bus, plane, train or car travel over 2 hours in duration is contraindicated due to the possibility of developing blood clots from immobility. Any travel, needs to include periods of ambulation of 10 minutes in duration every 2 hours.? The patient was instructed to discuss any plans for travel during this period with their bariatric surgeon. Assessment: stable s/p laparoscopic sleeve gastrectomy Discharge Date/Time: 06/18/23 10:00
--- NOTE | 2023-06-17 10:48 | PM.PNGS ---
Subjective Subjective Date of Service: 06/18/23 Interval history: Feels well. Mild incisional pain. She is tolerating phase 1 bariatric diet Physical Exam Vital Signs: Vital Signs: Last Vital Signs Temp 97.3 F 06/17/23 10:42 Pulse 91 06/17/23 10:42 Resp 16 06/17/23 10:42 BP 114/66 06/17/23 10:42 Pulse Ox 98 06/17/23 10:42 O2 Del Method Simple Mask 06/17/23 10:42 O2 Flow Rate 6 06/17/23 10:42 BMI result Body Mass Index 31.1 GI: Inspection: Yes normal to inspection, Yes incision (aleida, dry and intact) and Yes obesity Extrem: Right lower extremity: normal to inspection (no calf tenderness) Left lower extremity: normal to inspection (no calf tenderness) Objective Data Active Medications Albuterol Sulfate (Albuterol Sulfate (0.083%) 2.5 Mg/3 Ml Vial.Neb) 2.5 mg INHALE ONCE PRN PRN Reason: Wheezing Albuterol Sulfate (Albuterol Sulfate 90 Mcg 8 Gm Inhaler) 1 puff INHALE QID [facility] Atenolol (Atenolol 50 Mg Tablet) 50 mg PO DAILY [facility]; Protocol Duloxetine HCl (Duloxetine Hcl 60 Mg Capsule.Dr) 60 mg PO DAILY [facility] Fentanyl (Fentanyl Citrate/Pf 100 Mcg/2 Ml Vial) 50 mcg IVPUSH Q5M PRN; Protocol PRN Reason: Pain, Moderate(Pain Scale 4-6) Hydromorphone HCl (Hydromorphone Hcl 0.5 Mg/0.5 Ml Syringe) 0.5 mg IVPUSH Q5M PRN; Protocol PRN Reason: Pain, Severe (Pain Scale 7-10) Lactated Ringer's (Lr) 1,000 mls @ 100 mls/hr IVCONT .Q10H [facility] Last Admin: 06/17/23 06:24 Dose: 100 mls/hr Documented By: AMY Levothyroxine Sodium (Levothyroxine Sodium 112 Mcg Tablet) 112 mcg PO QAM [facility] Ondansetron HCl (Ondansetron Hcl 4 Mg/2 Ml Vial) 4 mg IVPUSH ONCE PRN PRN Reason: Nausea and Vomiting Labs 06/18/23 05:46 06/18/23 05:46 Procedures Date of Service Date of Service: 06/18/23 Progress Note: A&P Assessment and plan (1) Obesity: Status: Acute Assessment and Plan: s/p laparoscopic sleeve gastrectomy and gastropexy Doing well Will check am labs and if OK the patient will be discharged home (2) S/P laparoscopic sleeve gastrectomy: Status: Acute (3) Hypothyroid: Status: Acute (4) Hypothyroidism: Status: Acute (5) Osteoporosis: Status: Acute (6) Migraines: Status: Acute (7) Dyslipidemia: Status: Acute (8) Anxiety: Status: Acute (9) Essential hypertension: Status: Acute (10) GERD (gastroesophageal reflux disease): Status: Acute (11) Insomnia: Status: Acute (12) Liver fibrosis: Status: Acute Time Spent With Patient Time: Total time managing care of this patient today ____ minutes. Quality Stroke Does the patient have a stroke diagnosis?: No VTE Prior VTE?: No VTE Risk Level:: Surgical - moderate VTE Device Contraindication: N/A - Device Ordered VTE Drug Contraindication: Treatment Not Indicated
[2023-06-17 11:23] LABS: Hematocrit 38.2 % (37.0-47.0); Hemoglobin 12.3 g/dl (12.0-16.0)
[2023-06-17 11:44] LABS: Anion Gap 18 (12-20); Blood Urea Nitrogen 14 mg/dL (9-16); Calcium 9.2 mg/dL (8.4-10.2); Carbon Dioxide 21 mmol/L (22-29); Chloride 102 mmol/L (96-108); Estimated Glomerular Filt Rate > 60; Glucose Random 100 mg/dL (60-115); Potassium 4.5 mmol/L (3.3-5.1); Sodium 136 mmol/L (135-145)
[2023-06-17] MEDS: ceFAZolin Sodium/Dextrose,Iso 2 GM/50 ML PIGGYBACK IV (13:28)
[2023-06-17] MEDS: HYDROmorphone HCl 0.5 MG/0.5 ML SYRINGE 0.25 MG IVPUSH (13:41)
--- NOTE | 2023-06-17 15:02 | PHA.MEDREC ---
Addendum entered by Calvin Jay rufina 06/17/23 15:19: Spoke to Thomas Carrion about how patient takes duloxetine 60 mg bid prn, he wants to keep her order as 60 mg qd and will talk to patient in the morning. Original Note: Pharmacy Consult ? Medication Reconciliation Pharmacy has completed the medication reconciliation. Spoke to patient and confirmed medication list. Patient takes duloxetine 60 mg bid prn, trazodone 150 mg at bedtime and atorvastatin 40 mg at bedtime.
[2023-06-17] MEDS: Acetaminophen 1,000 MG/100 ML PIGGYBACK 16.7 MG IV ×2 (15:32→20:55)
[2023-06-17] MEDS: Albuterol Sulfate 90 MCG 8 GM INHALER 1 PUFF INHALE ×2 (15:49→20:03)
[2023-06-17] MEDS: SUMAtriptan succinate 50 MG TABLET PO (19:26)
[2023-06-17] MEDS: ondansetron HCL 4 MG/2 ML VIAL IVPUSH (19:27)
[2023-06-17] MEDS: Famotidine/PF 20 MG/2 ML VIAL IVPUSH (20:50)
[2023-06-17] MEDS: 0.9 % Sodium Chloride Flush 3 ML SYRINGE IVFLUSH (22:24)
[2023-06-18] MEDS: Acetaminophen 1,000 MG/100 ML PIGGYBACK 16.7 MG IV (01:44)
[2023-06-18 04:00] VITALS: BP 122/72; PULSE 85; RESP 16; TEMP 36.3; O2SAT 97
[2023-06-18] MEDS: Levothyroxine Sodium 112 MCG TABLET PO (05:46)
[2023-06-18 06:16] LABS: MANUAL DIFF FLAG NO
[2023-06-18 06:22] LABS: Basophils Percent Auto 0.1 % (0-2); Hematocrit 36.5 % (37.0-47.0); Imm Gran Abs Auto 0.03 X10*3/uL (0.00-0.03); Imm Gran Pct Auto 0.4 % (0.0-0.4); Lymphocytes Percent Auto 12.2 % (20-40); Mean Corpuscular HGB Conc 32.9 g/dl (31.0-35.0); Mean Corpuscular Hemoglobin 27.2 pg (27.0-33.0); Mean Corpuscular Volume 82.8 fL (80.0-98.0); Mean Platelet Volume 9.6 fL (9.4-12.3); Monocytes Absolute Auto 0.5 X10*3/uL (0.1-1.2); Monocytes Percent Auto 5.4 % (2-11); Neutrophils Absolute Auto 6.8 x10*3/uL (2.0-8.3); Neutrophils Percent Auto 81.9 % (45-73); Platelet Count 236 X10*3/uL (160-400); Red Blood Count 4.41 X10*6/uL (4.20-5.50); Red Cell Distribution Width 13.6 % (11.0-16.0); White Blood Count 8.3 X10*3/uL (4.8-10.8)
[2023-06-18 06:38] LABS: Anion Gap 15 (12-20); Blood Urea Nitrogen 9 mg/dL (9-16); Calcium 9.3 mg/dL (8.4-10.2); Carbon Dioxide 23 mmol/L (22-29); Chloride 103 mmol/L (96-108); Creatinine Clr Calc Pharmacy 57.6; Estimated Glomerular Filt Rate > 60; Glucose Random 118 mg/dL (60-115); Potassium 4.5 mmol/L (3.3-5.1); Sodium 136 mmol/L (135-145)
[2023-06-18 06:49] VITALS: BP 140/71; PULSE 81; RESP 17; TEMP 36.6; O2SAT 97
[2023-06-18] MEDS: atenoloL 50 MG TABLET PO (08:10)
[2023-06-18] MEDS: Famotidine/PF 20 MG/2 ML VIAL IVPUSH (08:12)
[2023-06-18 08:24] VITALS: PULSE 81; RESP 17; O2SAT 97
[2023-06-18] MEDS: Albuterol Sulfate 90 MCG 8 GM INHALER 1 PUFF INHALE (08:24)
--- NOTE | 2023-06-18 11:08 | HO.POSTANES ---
Post Anesthesia Evaluation Post Anesthesia Evaluation Date of Service: 06/18/23 Vital Signs: Vital Signs Temp Pulse Resp BP Pulse Ox O2 Del Method 06/18/23 08:24 81 17 06/18/23 06:49 98 F 81 17 140/71 H 97 Room Air 06/18/23 04:00 97.4 F 85 16 122/72 97 Room Air Anesthesia: General Endotracheal-GETA Mental Status: Awake Pain Control: Satisfactory Nausea/Vomiting: None Hydration: Adequate Anesthesia-Related Issues: No Anes. Related Issues
--- NOTE | 2023-06-18 14:15 | MHC.CM.PN ---
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
== END 2023-06-18 10:00 | disposition home or self-care (01) | DRG 621 ==
LOC: HO.SSSA 05:57 → HO.S3 10:27
PROVIDERS: Physician Assistant Surgical; Admitting Provider Surgery; PCP Nurse Practitioner Family; Visit Provider Surgery
PROC: 0DB64Z3 Excision of Stomach, Percutaneous Endoscopic Approach, Vertical (ICD-10-PCS; CPT 43845; principal; 2023-06-17 07:30)
DX: E66.01 Morbid (severe) obesity due to excess calories (principal); E03.9 Hypothyroidism, unspecified; E78.5 Hyperlipidemia, unspecified; I10 Essential (primary) hypertension; M81.0 Age-related osteoporosis without current pathological fracture; K21.9 Gastro-esophageal reflux disease without esophagitis; M54.9 Dorsalgia, unspecified; F41.9 Anxiety disorder, unspecified; G43.909 Migraine, unspecified, not intractable, without status migrainosus; G47.00 Insomnia, unspecified; K74.00 Hepatic fibrosis, unspecified; Z68.32 Body mass index [BMI] 32.0-32.9, adult; Z87.891 Personal history of nicotine dependence; Z79.890 Hormone replacement therapy; Z79.899 Other long term (current) drug therapy
CPT/HCPCS: 36415; 80048; 80053; 80061; 83036; 83525; 84443; 85014; 85018; 85025; 85730; 86140; 86850; 86900; 86901; 88304; 88305; 88307; 88342; 94640; A4649; C9088; C9145; J0131; J0690; J1100; J1170; J2250; J2371; J2405; J2704; J2795; J3010; J7120

== ENCOUNTER → 2023-06-17 05:56 | Outpatient (BNV) | payer OTHER, SELFPAY | PROVIDERS: Admitting Provider Surgery; PCP Nurse Practitioner Family; Visit Provider Surgery | DX: E66.09 Other obesity due to excess calories (principal); Z90.3 Acquired absence of stomach [part of]; Z68.33 Body mass index [BMI] 33.0-33.9, adult; Z98.84 Bariatric surgery status | CPT/HCPCS: 43659; 43775; 99024 ==

== ENCOUNTER 2023-06-22 10:20 | Outpatient (AMB) | payer OTHER, SELFPAY ==
--- NOTE | 2023-06-22 10:22 | A.OFFVIS_ITS ---
Intake VS Expanded 06/22/23 10:32 BP 108/70 Blood Pressure Location Rt brachial Blood Pressure Position Sitting Pulse 84 Pulse Source Pulse Oximeter Temp 97.4 F Temperature Source Temporal Artery Scan Pulse Oximetry 95 Oxygen Delivery Method Room Air Height 5 ft 2 in Weight 167 lb 6.4 oz BMI 30.6 Body Fat % 40.4 Body Fat Mass 67.6 Fat Free Mass 99.6 Visceral Fat Rating 12.0 Body Water % 41.9 Body Water Mass 70.2 Muscle Mass/Score 94.6 Basal Metabolic Rate/Score 1,369 Intake Visit Reasons: (OV) 5 Days PO LSG 06/17/2023 Allergies tramadol Allergy (Severe, Verified 06/22/23 10:34) Itching HPI HPI Comments History of Present Illness Details Patient is a pleasant 72-year-old female who underwent laparoscopic sleeve gastrectomy by Dr. Alberto on 06/17/2023. She states that she is tolerating 3 celebrate 4 in 1 shakes with 1 scoop each end approximately 40 oz per day. She has not yet moved her bowels but reports passing flatus without any abdominal pain or nausea. She also states that she has not been taking her atenolol 50 mg daily as her blood pressures have been 120s to 130s over 60s to 70s. [facility] Medical History (Updated 06/19/23 @ 00:02 by Stalin Loco) Insomnia PONV (postoperative nausea and vomiting) GERD (gastroesophageal reflux disease) Oropharyngeal dysphagia Gastritis Migraines Dyslipidemia Hypothyroidism Osteoporosis Anxiety Essential hypertension Surgical History History of shoulder surgery History of section History of nasal surgery History of surgery History of carpal tunnel surgery History of neck surgery Family History Father Cancer of prostate Mother HTN (hypertension) Maternal Grandmother Stroke Asthma Brother Substance use disorder Social History Household Members: Spouse Caregiver staying overnight: No Housing: Apartment 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 other at home: Yes (, he 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 has a FINANCE ATTORNEY) Do you presently have 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 or other home services: No 75 years or older and lives alone: No Alcohol intake: never Patient Tobacco Use Status: Former Tobacco user Quit Date: 1977 Tobacco use type: Cigarette e-Cigarette/Vaping Use: Never Used Second Hand Smoke Exposure: No service: No Current occupational status: retired Cognitive needs: No Hearing needs: No Vision needs: No Physical Exam Vital Signs: Last Vital Signs Temp 97.4 F 06/22/23 10:32 Pulse 84 06/22/23 10:32 BP 108/70 06/22/23 10:32 Pulse Ox 95 06/22/23 10:32 Oxygen Delivery Method Room Air 06/22/23 10:32 BMI result Body Mass Index 30.6 GI Inspection: Yes incision (Clean, dry, intact.) Assessment & Plan Assessment & Plan (1) S/P laparoscopic sleeve gastrectomy: Comment: june 2023 Code(s): Z98.84 - Bariatric surgery status Plan: POD 5 s/p LSG on 06/17/[address] Alberto Weight loss prior to surgery was 23.2 pounds or 11.6 % TBWL. Original weight on 10/19/2022 was 199.6 pounds and op weight was 176.4 pounds. Be sure to text Dr Alberto exactly 1 week after surgery your weight from your home scale so he can adjust your meal plan. Continue meal plan until f/u w Romelia in 2 weeks May shower, no submersion in bath for another week Continue abdominal binder with activity and exercise for the next 2 weeks. Exercise prior to surgery was walking, may resume No abdominal exercises for 6 weeks post operatively Will be emailed link to post op video for review Reminded of the pace of drinking, 2 mL per minute, 1 oz/15 min. Medications: New docusate sodium (Colace) 100 mg PO DAILY 60 caps 0RF Coding Level of Care Code Global (85647) Diagnoses S/P laparoscopic sleeve gastrectomy Z98.84
[2023-06-22 10:32] VITALS: BP 108/70; PULSE 84; TEMP 36.3; O2SAT 95; BMI 30.6
== END 2023-06-22 10:53 | disposition home or self-care (01) ==
PROVIDERS: PCP Nurse Practitioner Family; Visit Provider Physician Assistant Surgical
DX: Z98.84 Bariatric surgery status (principal)
CPT/HCPCS: 99024

== ENCOUNTER → 2023-06-22 10:20 | Outpatient (BNVA) | payer OTHER, SELFPAY | PROVIDERS: PCP Nurse Practitioner Family; Visit Provider Physician Assistant Surgical | DX: Z48.815 Encounter for surgical aftercare following surgery on the digestive system (principal); Z98.84 Bariatric surgery status | CPT/HCPCS: 99212 ==

== ENCOUNTER 2023-07-06 12:12 | Outpatient (AMB) | payer OTHER, SELFPAY ==
--- NOTE | 2023-07-06 12:27 | A.OFFVIS_ITS ---
Intake VS Expanded 07/06/23 12:34 BP 106/64 Blood Pressure Location Rt brachial Blood Pressure Position Sitting Pulse 91 Pulse Source Pulse Oximeter Temp 95.9 F L Temperature Source Temporal Artery Scan Pulse Oximetry 95 Oxygen Delivery Method Room Air Height 5 ft 2 in Weight 163 lb 9.6 oz BMI 29.9 Body Fat % 36.9 Body Fat Mass 60.4 Fat Free Mass 103.2 Visceral Fat Rating 11.0 Body Water % 44.3 Body Water Mass 72.6 Muscle Mass/Score 97.8 Basal Metabolic Rate/Score 1,398 Intake Visit Reasons: (OV) LSG 06/17/2023 Allergies tramadol Allergy (Severe, Verified 07/06/23 12:30) Itching Medication List - Last Reconciled 07/06/23 by YOUNG Goins albuterol sulfate 90 mcg/actuation 1 puff inhalation QID alendronate 70 mg PO QWEEK 90 days atenolol 50 mg PO DAILY atorvastatin 40 mg PO BEDTIME [chair lift daily use NS] docusate sodium (Colace) 100 mg PO DAILY duloxetine 60 mg PO BID PRN hospital bed daily hydroxyzine HCl 25 mg PO DAILY 30 days levothyroxine 112 mcg PO QAM meclizine 12.5 mg PO BID PRN ondansetron 4 mg PO Q12H pantoprazole 40 mg PO DAILY rizatriptan take 1 tab at onset of headache; if no relief may repeat 1 tab after at least 2 hrs; max = 3 tabs/24 hr PO sucralfate 10 mL PO BID trazodone 150 mg PO BEDTIME HPI HPI Comments History of Present Illness Details This?is a?72?yo female who is s/p LSG 06/17/2023. Presents for 3 week post op visit. Weight at last visit on 06/22/2023 was 167.4 pounds, representing a 3 pound weight loss with a BMI today of 29.9.? No complaints of nausea, emesis, abdominal pain or reflux, or constipation. Present meal plan includes: Celebrate 1 shake with 2 scoops, 2 shakes with 1 scoop each in 8oz unsweetened almond milk Celebrate bar 1 bar per day has been using regular almond milk but recognizes it has more calories Exercise routine includes: started going to gym, trying to use bike for 300 calories per day has light weights at home plans to walk outside more with [facility] Medical History (Updated 07/06/23 @ 12:50 by YOUNG Goins) Insomnia PONV (postoperative nausea and vomiting) GERD (gastroesophageal reflux disease) Oropharyngeal dysphagia Gastritis Migraines Dyslipidemia Hypothyroidism Osteoporosis Anxiety Essential hypertension Surgical History History of shoulder surgery History of section History of nasal surgery History of surgery History of carpal tunnel surgery History of neck surgery Family History Father Cancer of prostate Mother HTN (hypertension) Maternal Grandmother Stroke Asthma Brother Substance use disorder Social History Household Members: Spouse Caregiver staying overnight: No Housing: Apartment 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: Yes (, 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) Do you presently have 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 or other home services: No 75 years or older and lives alone: No Alcohol intake: never Patient Tobacco Use Status: Former Tobacco user Quit Date: 1977 Tobacco use type: Cigarette e-Cigarette/Vaping Use: Never Used Second Hand Smoke Exposure: No service: No Current occupational status: retired Cognitive needs: No Hearing needs: No Vision needs: No Assessment & Plan Assessment & Plan (1) S/P laparoscopic sleeve gastrectomy: Comment: june 2023 Code(s): Z98.84 - Bariatric surgery status (2) Overweight: Code(s): E66.3 - Overweight Plan Discussed making sure she uses unsweetened almond milk rather than regular due to difference in calories. Otherwise no changes make to plan. Continue PPI and carafate. No heavy lifting until 6 weeks postop, light weights ok. Reviewed that her BMI is now <30 and she is no longer obese. RTC 2 weeks. Patient is overweight and is not considered stable at this time. I spent a total of 30 minutes reviewing/updating records, examining the patient and counseling the patient on weight management as detailed above. Coding Level of Care Code Est Pt Level 4 (11595) Diagnoses S/P laparoscopic sleeve gastrectomy Z98.84 Overweight E66.3
[2023-07-06 12:34] VITALS: BP 106/64; PULSE 91; TEMP 35.5; O2SAT 95; BMI 29.9
== END 2023-07-06 13:01 | disposition home or self-care (01) ==
PROVIDERS: PCP Nurse Practitioner Family; Visit Provider Physician Assistant Surgical
DX: E66.3 Overweight (principal); Z68.29 Body mass index [BMI] 29.0-29.9, adult; Z90.3 Acquired absence of stomach [part of]; Z98.84 Bariatric surgery status
CPT/HCPCS: 99024

== ENCOUNTER → 2023-07-06 12:12 | Outpatient (BNVA) | payer OTHER, SELFPAY | PROVIDERS: PCP Nurse Practitioner Family; Visit Provider Physician Assistant Surgical | DX: E66.3 Overweight (principal); Z98.84 Bariatric surgery status; Z68.29 Body mass index [BMI] 29.0-29.9, adult | CPT/HCPCS: 99212 ==

== ENCOUNTER 2023-07-29 11:36 | Outpatient (AMB) | payer OTHER, SELFPAY ==
--- NOTE | 2023-07-29 12:00 | A.OFFVIS_ITS ---
Intake VS Expanded 07/29/23 12:07 BP 141/79 H Blood Pressure Location Rt brachial Blood Pressure Position Sitting Pulse 77 Pulse Source Pulse Oximeter Temp 97.1 F Temperature Source Tympanic Pulse Oximetry 98 Oxygen Delivery Method Room Air Height 5 ft 2 in Weight 161 lb 6.4 oz BMI 29.5 Body Fat % 35.5 Body Fat Mass 57.4 Fat Free Mass 104.0 Visceral Fat Rating 10.0 Body Water % 45.4 Body Water Mass 45.4 Muscle Mass/Score 98.8 Basal Metabolic Rate/Score 1,404 Intake Visit Reasons: (OV) LSG 06/17/2023 Allergies tramadol Allergy (Severe, Verified 07/29/23 12:00) Itching Medication List - Last Reconciled 07/29/23 by YOUNG Goins albuterol sulfate 90 mcg/actuation 1 puff inhalation QID alendronate 70 mg PO QWEEK 90 days atenolol 50 mg PO DAILY atorvastatin 40 mg PO BEDTIME [chair lift daily use NS] docusate sodium (Colace) 100 mg PO DAILY duloxetine 60 mg PO BID PRN hospital bed daily hydroxyzine HCl 25 mg PO DAILY 30 days levothyroxine 112 mcg PO QAM meclizine 12.5 mg PO BID PRN ondansetron 4 mg PO Q12H pantoprazole 40 mg PO DAILY rizatriptan take 1 tab at onset of headache; if no relief may repeat 1 tab after at least 2 hrs; max = 3 tabs/24 hr PO sucralfate 10 mL PO BID trazodone 150 mg PO BEDTIME HPI HPI Comments History of Present Illness Details This?is a?72?yo female who is s/p LSG 06/17/2023. Presents for 6 week post op visit. Weight at last visit on 07/06/2023 was 163.6 pounds with a BMI of 29.9, weight today is 161.4 pounds, representing a 2.2 pound weight loss with a BMI today of 29.5.? No complaints of nausea, emesis, abdominal pain or reflux. Reports constipation. Atenolol still on hold. Present meal plan includes: Celebrate 2 shakes with 1 scoop each in 8oz unsweetened almond milk Celebrate bar 1 bar per day 1-2oz [place] yogurt Exercise routine includes: started going to gym, trying to use bike for 300 calories per day has light weights at home 2-3lb weights PFSH Medical History (Updated 07/06/23 @ 12:50 by YOUNG Goins) Insomnia PONV (postoperative nausea and vomiting) GERD (gastroesophageal reflux disease) Oropharyngeal dysphagia Gastritis Migraines Dyslipidemia Hypothyroidism Osteoporosis Anxiety Essential hypertension Surgical History History of shoulder surgery History of section History of nasal surgery History of surgery History of carpal tunnel surgery History of neck surgery Family History Father Cancer of prostate Mother HTN (hypertension) Maternal Grandmother Stroke Asthma Brother Substance use disorder Social History Household Members: Spouse Caregiver staying overnight: No Housing: Apartment Are you 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 healthcare 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 at home: Yes (, 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) Do you presently have 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 or other home services: No 75 years or older and lives alone: No Alcohol intake: never Patient Tobacco Use Status: Former Tobacco user Quit Date: 1977 Tobacco use type: Cigarette e-Cigarette/Vaping Use: Never Used Second Hand Smoke Exposure: No service: No Current occupational status: retired Cognitive needs: No Hearing needs: No Vision needs: No Assessment & Plan Assessment & Plan (1) Overweight: Code(s): E66.3 - Overweight (2) S/P laparoscopic sleeve gastrectomy: Comment: june 2023 Code(s): Z98.84 - Bariatric surgery status Plan Pt due to communicate with Dr. Pathak today regarding her meal plan. In review of [facility] it appears she is retaining water perhaps due to constipation. Sent fiber rx to pharmacy, pt can also use MoM or Miralax if needed. RTC 1 month. Patient is overweight and is not considered stable at this time. I spent a total of 30 minutes reviewing/updating records, examining the patient and counseling the patient on weight management as detailed above. Medications: New inulin 2 grams PO DAILY 90 tabs 3RF Coding Level of Care Code Est Pt Level 4 (48106) Diagnoses Overweight E66.3 S/P laparoscopic sleeve gastrectomy Z98.84
[2023-07-29 12:07] VITALS: BP 141/79; PULSE 77; TEMP 36.2; O2SAT 98; BMI 29.5
== END 2023-07-29 12:32 | disposition home or self-care (01) ==
PROVIDERS: PCP Nurse Practitioner Family; Visit Provider Physician Assistant Surgical
DX: E66.3 Overweight (principal); Z68.29 Body mass index [BMI] 29.0-29.9, adult; Z90.3 Acquired absence of stomach [part of]; Z98.84 Bariatric surgery status
CPT/HCPCS: 99024

== ENCOUNTER → 2023-07-29 11:36 | Outpatient (BNVA) | payer OTHER, SELFPAY | PROVIDERS: PCP Nurse Practitioner Family; Visit Provider Physician Assistant Surgical | DX: E66.3 Overweight (principal); K59.00 Constipation, unspecified; Z68.29 Body mass index [BMI] 29.0-29.9, adult; Z90.3 Acquired absence of stomach [part of] | CPT/HCPCS: 99212 ==

== ENCOUNTER → 2023-08-09 09:56 | Outpatient (BNVA) | payer OTHER, SELFPAY | PROVIDERS: PCP Nurse Practitioner Family; Visit Provider Surgery ==

== ENCOUNTER 2023-08-24 09:17 | Outpatient (AMB) | payer OTHER, SELFPAY ==
[2023-08-24 09:25] VITALS: BP 120/90; PULSE 91; TEMP 36.3; O2SAT 98; BMI 28.9
--- NOTE | 2023-08-24 09:25 | AM.OFFWIN_ITS ---
Intake Vital Signs 08/24/23 09:25 Height 5 ft 2 in Weight 158 lb BMI 28.9 BP 120/90 H Blood Pressure Location Lt brachial Position Sitting Pulse 91 Pulse Source Pulse Oximeter Temp 97.4 F Temp Source Temporal Artery Scan Pulse Oximetry (%) 98 Intake Visit Reasons: fell a hit her face Intake Note: pt is here today for fell and hit her face today Patient Tobacco Use Status: Former Tobacco user Quit Date: 1977 Allergies tramadol Allergy (Severe, Verified 08/24/23 09:41) Itching Medication List - Last Reconciled 08/24/23 by SRIDHAR Traylor albuterol sulfate 90 mcg/actuation 1 puff inhalation QID alendronate 70 mg PO QWEEK 90 days atenolol 50 mg PO DAILY atorvastatin 40 mg PO BEDTIME [chair lift daily use NS] docusate sodium (Colace) 100 mg PO DAILY duloxetine 60 mg PO BID PRN hospital bed daily hydroxyzine HCl 25 mg PO DAILY 30 days inulin 2 grams PO DAILY levothyroxine 112 mcg PO QAM meclizine 12.5 mg PO BID PRN ondansetron 4 mg PO Q12H pantoprazole 40 mg PO DAILY rizatriptan take 1 tab at onset of headache; if no relief may repeat 1 tab after at least 2 hrs; max = 3 tabs/24 hr PO sucralfate 10 mL PO BID trazodone 150 mg PO BEDTIME Do you need a note to return to daycare/school/sports/work: No HPI HPI Comments History of Present Illness Details Patient is a 73-year-old female in today for a sick visit. She states that she woke up in the middle of night and made her way to the bathroom. While she was there she started to feel dizzy. Made her way back to her bedroom where she fainted and hit her head. Patient does not know how long she was down on the ground for, she does not know how long she was unconscious. Patient presents with laceration on her forehead between her eyes, about 1.5 in long. Patient also has small laceration on her nose. She reports this morning she was bleeding from her nose which recently stopped prior to this appointment. Patient is offering complaint of dizziness. Due to nature of fall, syncopal event, dizziness and presentation patient has been instructed to go to the emergency room. Patient has declined ambulance. She will be getting ride. [facility] Medical History (Updated 08/24/23 @ 09:43 by SRIDHAR Traylor) Insomnia PONV (postoperative nausea and vomiting) GERD (gastroesophageal reflux disease) Oropharyngeal dysphagia Gastritis Migraines Dyslipidemia Hypothyroidism Osteoporosis Anxiety Essential hypertension Surgical History History of shoulder surgery History of section History of nasal surgery History of surgery History of carpal tunnel surgery History of neck surgery Family History Father Cancer of prostate Mother HTN (hypertension) Maternal Grandmother Stroke Asthma Brother Substance use disorder Social History Household Members: Spouse Caregiver staying overnight: No Housing: Apartment Are you a 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 at home: Yes (, 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) Do you presently have 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 or other home services: No 75 years or older and lives alone: No Alcohol intake: never Patient Tobacco Use Status: Former Tobacco user Quit Date: 1977 Tobacco use type: Cigarette e-Cigarette/Vaping Use: Never Used Second Hand Smoke Exposure: No service: No Current occupational status: retired Cognitive needs: No Hearing needs: No Vision needs: No Review of Systems Const All systems reviewed & are unremarkable except as noted in HPI and below Denies chills, Denies fever(s) and Reports headache(s) ENT Reports dizziness and Reports headache(s) Card Denies chest pain and Denies dyspnea Resp Denies dyspnea Neuro Reports dizziness and Reports headache(s) Physical Exam Vital Signs: Last Vital Signs Temp 97.4 F 08/24/23 09:25 Pulse 91 08/24/23 09:25 BP 120/90 H 08/24/23 09:25 Pulse Ox 98 08/24/23 09:25 BMI result Body Mass Index 28.9 Const Other: Appearance: Alert.? Oriented X3.? Head: Normocephalic. Eyes: Pupils equal, round and reactive to light.? CVS: Normal heart rate and rhythm.? Pulses normal.? Respiratory: No respiratory distress.? Breath sounds normal.? Abdomen: Soft and nontender.? Skin: + laceration to patients forehead. +small laceration to nose. Neuro: Oriented X 3.? No motor deficit.? No sensory deficit. CN 2-12 intact Assessment & Plan Assessment & Plan (1) Syncope: Comment: Patient has been sent to the emergency room. Declined ambulance ride. Getting right with friend. Code(s): R55 - Syncope and collapse Qualifiers: Syncope type: unspecified Qualified Code(s): R55 - Syncope and collapse Plan: Present to the ER Plan Present to the ER. Coding Level of Care Code Est Pt Level 3 (58558) Diagnoses Syncope, unspecified syncope type R55 Syncope type: unspecified Time Spent (min) 20
== END 2023-08-24 10:04 | disposition home or self-care (01) ==
PROVIDERS: PCP Nurse Practitioner Family; Visit Provider Nurse Practitioner Primary Care
DX: R55 Syncope and collapse (principal)
CPT/HCPCS: 99213

== ENCOUNTER 2023-08-24 10:19 | Emergency (ER) | payer OTHER, SELFPAY ==
--- NOTE | ~2023-08-24 | XR_ITS ---
EXAMINATION: XR SHOULDER, LEFT CLINICAL INFORMATION: Pain status post fall COMPARISON: None available. TECHNIQUE: Three views of the left shoulder. FINDINGS: No acute visible fracture or dislocation. Increased acromiohumeral interval suggesting rotator cuff pathology. Degenerative changes of the glenohumeral and acromioclavicular joint. Joint space alignment are otherwise maintained. Cervical spinal hardware, grossly intact. Soft tissues are unremarkable. XR/XR shoulder LT min 2V IMPRESSION: 1. No acute visible fracture or dislocation. 2. Increased acromiohumeral interval suggesting rotator cuff pathology. 3. Degenerative changes of the glenohumeral and acromioclavicular joint.
--- NOTE | ~2023-08-24 | XR_ITS ---
EXAMINATION: XR CERVICAL SPINE CLINICAL INFORMATION: Status post fall COMPARISON: None available. TECHNIQUE: 3 views of the cervical spine were obtained. FINDINGS: Status post anterior cervical fusion of C6-C7, grossly intact. No acute visible fracture or dislocation. Straightening the normal cervical curvature. Multilevel degenerative changes with anterior bridging osteophyte formation and facet arthropathy. Vertebral body heights and disc spaces are maintained. Prevertebral soft tissues are unremarkable. Posterior elements are intact. Paraspinal soft tissues are unremarkable. Visualized portions of the upper chest are unremarkable. XR/XR cervical spine 2V IMPRESSION: 1. No acute visible fracture or dislocation. 2. Status post anterior cervical fusion of C6-C7, grossly intact. 3. Straightening the normal cervical curvature. 4. Multilevel degenerative changes.
--- NOTE | ~2023-08-24 | XR_ITS ---
EXAMINATION: XR CHEST CLINICAL INFORMATION: Dizziness. COMPARISON: June 08, 2023. TECHNIQUE: 2 views of the chest were obtained. FINDINGS: No acute infiltrate, effusion, pneumothorax is seen. The heart appears normal in size. The aorta is uncoiled, suggesting hypertension. Lower cervical anterior fixation plate and screws are present. Surgical clips project over the left upper quadrant. XR/XR chest 2V IMPRESSION: No acute finding.
--- NOTE | ~2023-08-24 | CT_ITS ---
EXAMINATION: CT HEAD AND FACIAL BONES WITHOUT CONTRAST CLINICAL INFORMATION: Fall onto face and head COMPARISON: None TECHNIQUE: Contiguous axial imaging was performed from the skull base to vertex and facial bones without intravenous administration of contrast. This CT examination was performed using dose optimization techniques as appropriate, variously including the following: *Automated exposure control *Adjustment of mA and/or kV according to patient size (this includes techniques or standardized protocols for targeted exams where dose is matched to indication/reason for exam; i.e. extremities or head) *Use of iterative reconstruction technique DLP: 721.81 mGy-cm (CT Head) 283.79 mGy-cm (CT Facial Bones) FINDINGS: There is no evidence of acute intracranial hemorrhage or territorial infarction. Chronic white matter small vessel ischemic changes. No abnormal mass effect or midline shift is seen. Arcos to white matter differentiation is well preserved. No extra-axial fluid collections are identified. The ventricles are normal in size. There is no abnormal attenuation within the brain parenchyma.. Comminuted fractures of the bilateral nasal bones, left greater than right with overlying soft tissue swelling. Soft tissue swelling overlying the right frontal bone without underlying bony defect. The paranasal sinuses are well-aerated. No air-fluid levels are seen. There is minimal rightward deviation of the nasal septum. The ostiomeatal complexes are clear. The lamina papyracea are intact. The ethmoid roofs are symmetric. No maxillary periapical disease is seen. Mucoperiosteal thickening of the right maxillary sinus. The mastoid air cells and visualized middle ear cavities are well-aerated. The orbits are normal. The TMJs are unremarkable. Partially visualized cervical spinal hardware, grossly intact CT/CT facial bones wo IV con IMPRESSION: 1. No acute intracranial pathology. 2. Comminuted fractures of the bilateral nasal bones, left greater than right with overlying soft tissue swelling. 3. Soft tissue swelling overlying the right frontal bone without underlying bony defect. 4. Chronic white matter small vessel ischemic changes.
[2023-08-24 11:01] VITALS: BP 150/93; PULSE 79; RESP 16; TEMP 36.9; O2SAT 100; BMI 28.9
--- NOTE | 2023-08-24 14:45 | ECG_ITS ---
Test Reason : fall Blood Pressure : / mmHG Vent. Rate : 075 BPM Atrial Rate : 075 BPM P-R Int : 174 ms QRS Dur : 082 ms QT Int : 386 ms P-R-T Axes : 052 -12 006 degrees QTc Int : 431 ms Normal sinus rhythm Normal ECG When compared to the previous EKG of No significant changes seen Referred By: Olivia Perez Electronically Signed By:DONATO BRIGHT MD
[2023-08-24] MEDS: 0.9 % Sodium Chloride 1,000 ML 999 ML IV (14:59)
[2023-08-24 15:06] LABS: MANUAL DIFF FLAG NO
--- NOTE | 2023-08-24 15:10 | PC.NURSE ---
patient a&ox3, iv inserted, labs drawn, IVF started per order, pt to CT scan.
[2023-08-24 15:11] LABS: Basophils Percent Auto 0.1 % (0-2); Eosinophils Absolute Auto 0.2 X10*3/uL (0.0-0.4); Eosinophils Percent Auto 2.8 % (0-4); Hematocrit 39.5 % (37.0-47.0); Imm Gran Abs Auto 0.01 X10*3/uL (0.00-0.03); Imm Gran Pct Auto 0.1 % (0.0-0.4); Lymphocytes Percent Auto 40.3 % (20-40); Mean Corpuscular HGB Conc 32.9 g/dl (31.0-35.0); Mean Corpuscular Hemoglobin 27.9 pg (27.0-33.0); Mean Corpuscular Volume 84.8 fL (80.0-98.0); Mean Platelet Volume 9.7 fL (9.4-12.3); Monocytes Absolute Auto 0.6 X10*3/uL (0.1-1.2); Monocytes Percent Auto 8.7 % (2-11); Neutrophils Absolute Auto 3.5 x10*3/uL (2.0-8.3); Platelet Count 252 X10*3/uL (160-400); Red Blood Count 4.66 X10*6/uL (4.20-5.50); Red Cell Distribution Width 14.7 % (11.0-16.0); White Blood Count 7.4 X10*3/uL (4.8-10.8)
[2023-08-24 15:24] LABS: Alanine Aminotransferase 12 U/L (0-31); Albumin Level 4.4 g/dL (3.5-5.0); Alkaline Phosphatase 88 U/L (39-117); Anion Gap 17 (12-20); Aspartate Amino Transferase 20 U/L (5-31); Bilirubin Total 0.5 mg/dL (0.0-1.0); Blood Urea Nitrogen 9 mg/dL (9-16); Calcium 10.2 mg/dL (8.4-10.2); Carbon Dioxide 25 mmol/L (22-29); Chloride 103 mmol/L (96-108); Creatinine Clr Calc Pharmacy 66.4; Estimated Glomerular Filt Rate > 60; Glucose Random 86 mg/dL (60-115); Lipase 10 U/L (8-78); Magnesium 2.1 mg/dL (1.6-2.6); Potassium 3.9 mmol/L (3.3-5.1); Sodium 141 mmol/L (135-145); Total Protein 7.7 g/dL (6.5-8.0)
[2023-08-24 15:29] LABS: Troponin-I High Sensitivity < 2.7 ng/L (<3.5-17.0)
--- NOTE | 2023-08-24 16:09 | ED_ITS ---
HPI - Fall General Chief Complaint: Fall Stated Complaint: Head Facial Lac Fall Time Seen by Provider: 08/24/23 14:14 Source: patient, RN notes reviewed and old records reviewed Mode of arrival: ambulatory Limitations: no limitations History of Present Illness HPI Narrative: 73 year old female with pmhx significant for GERD, HTN, anxiety, migraines, dyslipidemia, and insomnia presents to the ED today for evaluation of head laceration and left shoulder pain s/p fall occurring last night. Patient admits to taking her sleeping medication at 10:00 p.m. last night. Around 11:00 p.m., she got out of bed to use the bathroom and upon sitting on the toilet, became dizzy. She stood up and the next thing she new she was on the floor surrounded by blood. She was able to stand and ambulate back to her bed. She is unsure how long she was on the ground for. Later that night, got up to use the restroom again, felt dizzy and fell to the ground, this time landing on her back/ left shoulder. She was able to stand and ambulate back to bed. Denies preceding symptoms of chest pain, palpitations, sob. This morning she woke up with facial pain and bruising, prompting her to come in for evaluation. Not on AC. Denies vision changes, dizziness, fever, chills, dysuria, hematuria. Denies recent travel or long car rides. Tetanus UTD. Related Data Home Medications ?Medication ?Instructions ?Recorded ?Confirmed atorvastatin 80 mg tablet 40 mg PO BEDTIME 08/27/22 08/24/23 trazodone 100 mg tablet 150 mg PO BEDTIME 09/04/22 08/24/23 duloxetine 60 mg capsule,delayed 60 mg PO BID PRN Agitation 06/17/23 08/24/23 release Previous Rx's ?Medication ?Instructions ?Recorded chair lift #1 ea 11/25/21 hospital bed #1 ea 11/25/21 meclizine 12.5 mg tablet 12.5 mg PO BID PRN dizziness #14 05/05/22 tabs hydroxyzine HCl 25 mg tablet 25 mg PO DAILY 30 days #30 tabs 10/21/22 pantoprazole 40 mg tablet,delayed 40 mg PO DAILY #90 tabs 10/21/22 release levothyroxine 112 mcg tablet 112 mcg PO QAM #90 tabs 02/08/23 albuterol sulfate 90 mcg/actuation 1 puff inhalation QID #8.5 grams 06/07/23 aerosol inhaler ondansetron 4 mg disintegrating 4 mg PO Q12H nausea and vomiting 06/08/23 tablet #20 tabs sucralfate 100 mg/mL oral 10 ml PO BID #600 mL 06/08/23 suspension atenolol 50 mg tablet 50 mg PO DAILY #90 tabs 06/09/23 docusate sodium 100 mg capsule 100 mg PO DAILY #60 caps 06/22/23 (Colace) inulin 2 gram chewable tablet 2 g PO DAILY #90 tabs 07/29/23 alendronate 70 mg tablet 70 mg PO QWEEK 90 days #13 tabs 07/30/23 rizatriptan 10 mg tablet See Rx Instructions PO .COMPLEX 08/07/23 #14 tabs acetaminophen 300 mg-codeine 30 mg 1 tab PO Q12H PRN pain (scale 08/24/23 tablet score 7-10) #7 tabs Allergies Allergy/AdvReac Type Severity Reaction Status Date / Time tramadol Allergy Severe Itching Verified 08/24/23 11:05 Review of Systems 2 Review of Systems: Constitutional: No fever, chills, fatigue, night sweats, weight changes ENT/Mouth: No ear pain, hearing loss, nasal congestion, sinus pain, rhinorrhea, sore throat Eyes: No eye pain, swelling, redness, vision changes, discharge Cardio: No chest pain, palpitations, LOBO, orthopnea, peripheral edema Pulm: No SOB, cough, sputum, wheezing, dyspnea, hemoptysis GI: No nausea, vomiting, hematemesis, abdominal pain, diarrhea, constipation, hematochezia, melena : No irregular bleeding, dysuria, frequency, urgency, hesitancy, hematuria, flank pain, urinary flow changes, urinary incontinence or retention MSK: No back pain, neck pain, joint pain, myalgias, +left shoulder pain Skin: No lesions, rashes, +2 cm lac to forehead, +1cm lac to nasal bridge Neuro: No weakness, numbness, paresthesias, LOC, dizziness, +headache Psych: No anxiety/panic, depression, SI/HI, AH/VH All other systems reviewed and are negative. [facility] Past Medical History Attestation statement: The following information was validated with the patient. Source: old records reviewed and nursing notes reviewed Medical History Insomnia PONV (postoperative nausea and vomiting) GERD (gastroesophageal reflux disease) Oropharyngeal dysphagia Gastritis Migraines Dyslipidemia Hypothyroidism Osteoporosis Anxiety Essential hypertension Surgical History History of shoulder surgery History of section History of nasal surgery History of surgery History of carpal tunnel surgery History of neck surgery Family History Family History Father Cancer of prostate Mother HTN (hypertension) Maternal Grandmother Stroke Asthma Brother Substance use disorder Social History Social History Household Members: Spouse Housing: Apartment 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: Yes (, he also has a [employer] INTER[employer]) Do you presently have 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 or other home services: No Alcohol intake: never Patient Tobacco Use Status: Former Tobacco user Quit Date: 1977 Tobacco use type: Cigarette e-Cigarette/Vaping Use: Never Used Second Hand Smoke Exposure: No Advance Directives: No Do you have a plan to hurt others: No Plan service: No Current occupational status: retired Cognitive needs: No Hearing needs: No Vision needs: No Physical Exam 2 Vital Signs: Vital Signs: Last Vital Signs Temp 98.4 F 08/24/23 11:01 Pulse 79 08/24/23 11:01 Resp 16 08/24/23 11:01 BP 150/93 H 08/24/23 11:01 Pulse Ox 100 08/24/23 11:01 O2 Del Method Room Air 08/24/23 11:01 BMI result Body Mass Index 28.9 Patient hypertensive, vitals otherwise WNL Const: General: cooperative, healthy appearing, comfortable and no acute distress Orientation/consciousness: patient oriented x3 Limitations: no limitations HEENT: Other: + refer to photos below + No palpable skull fracture or scalp he matoma. There is bilateral periorbital ecchymoses. There is a healing 2 cm laceration noted to mid right forehead with palpable fluctuance likely hematoma. No active bleeding. Notable nasal swelling with small 1 cm healing laceration noted to nasal bridge. No septal hematoma. Dried blood within left naris. Hematoma noted to upper lip. No active bleeding. Tender to palpation. No palpable facial fracture. Airway patent. Head: Yes No palpable skull fracture present, No Hauser's sign, No scalp tenderness and Yes periorbital ecchymosis Ears: hearing grossly normal bilaterally and external ears normal General nose exam: Normal septum present and No nasal discharge present Mouth: Normal oral and palatal mucosa present, tongue normal and lip abnormal upper swelling Teeth and gingiva: dentition normal Eyes: Other: + EOMs intact without entrapment Pupils: Equal, round and reactive pupils present Direct Ophthalmoscopy: normal light reflex and anterior chamber normal Neck: Other: + no midline cervical spinous tenderness or step-off deformity. Full ROM intact Chest: Chest palpation & inspection: normal inspection of the chest and normal palpation of entire chest wall Resp: Effort & Inspection: normal respiratory effort and able to speak in complete sentences Auscultation: clear to auscultation bilaterally Back/Spine/Pelvis: Other: + no midline cervical spinous tenderness or step-off deformity. No paraspinal muscle tenderness to palpation Skin: General skin exam: no rashes or lesions noted Neuro: Other: Strength 5/5 intact throughout.?No saddle anesthesia.?Sensation intact to light touch.? Neurovascular intact distally.? General: patient oriented x3 Cranial nerves: Yes Equal, round and reactive pupils present Gait exam (Neuro): Normal gait present Motor exam (neuro): 5/5 motor strength present throughout and Pronator motor function not present Coordination: [id number] test normal, [id number] test normal and Romberg test negative Pupils: Normal pupillary reactivity/response: bilateral Extrem: Other: + No overlying skin changes or deformity noted to left shoulder. No TTP. FROM intact to abduction and adduction of left shoulder. 2+ radial and ulnar pulses. Course Course Course Narrative: 1800-- CBC without leukocytosis or left shift. No anemia. H&H stable. Coags WNL. Chemistry without acute electrolyte abnormality requiring intervention. Renal and liver function. Troponin undetectable > ACS unlikely. EKG showing normal sinus rhythm with a rate of 75 beats per minute, QT 386, QTC 431, no acute ischemic changes or ST elevations. CT head/brain does not demonstrate acute bleed or skull fracture. CT facial bones shows comminuted fractures of bilateral nasal bones with left greater than right along with overlying soft tissue swelling. There is soft tissue swelling overlying the right frontal bone without underlying bony defect > correlating with physical exam. Chest x-ray without infiltrate or consolidation. No pneumonia. X-ray of left shoulder showing increased acromiohumeral interval suggesting rotator cuff pathology > seeing applied. Advised ortho follow-up. There is no acute fracture or dislocation. There are degenerative changes within the glenohumeral and acromioclavicular joint. X-ray cervical spine without fracture or dislocation. Intact cervical fusion of C6-C7. > lacs to forehead and nose do not require repair. They are already closed and healing. No active bleeding. I discussed finding of nasal bone fractures with my attending physician Dr. Chavarria who recommends outpatient ENT follow up this week. > discussed all findings with patient. ENT referral provided. Advised to call them tomorrow morning. Patient has remained stable throughout ED visit today. Discussed worrisome signs and symptoms and when to return to the ED. All questions answered at this time. Patient is agreeable with disposition and stable for discharge. Medications Administered Discontinued Medications Generic Name Dose Route Start Last Admin Trade Name Freq PRN Reason Stop Dose Admin Acetaminophen 975 mg 08/24/23 15:49 08/24/23 16:25 Acetaminophen 325 Mg Tablet PO 08/24/23 15:50 975 mg ONCE ONE Administration Sodium Chloride 1,000 mls @ 999 mls/hr 08/24/23 14:45 08/24/23 17:08 Ns IV 08/24/23 15:45 Infused .Q1H1M [facility] Infusion Procedures Orthopedic Splinting/Casting Injury #1: Side: left Upper Extremity Injury Location: shoulder Upper Extremity Immobilizer: sling/shoulder immobilizer Medical Decision Making Medical Decision Making MDM Narrative: 73 year old female with pmhx significant for GERD, HTN, anxiety, migraines, dyslipidemia, and insomnia presents to the ED today for evaluation of head laceration and left shoulder pain s/p fall occurring last night. Patient hypertensive, vitals otherwise WNL she is nontoxic-appearing and in no acute distress. On exam, PERRLA. EOMs intact without entrapment. Refer to physical exam section for exam findings. No palpable skull fracture or scalp hematoma. There is bilateral periorbital ecchymoses. There is a healing 2 cm laceration noted to mid right forehead with palpable fluctuance likely hematoma. No active bleeding. Notable nasal swelling with small 1 cm healing laceration noted to nasal bridge. No septal hematoma. Dried blood within left naris. Hematoma noted to upper lip. No active bleeding. Tender to palpation. No palpable facial fracture. Airway patent. No palpable deformity or tenderness noted to anterior lateral or posterior chest wall. RRR. Lungs are CTA bilaterally with equal breath sounds. No midline spinous tenderness or step-off deformity. C-spine with full ROM intact. NV intact distally. Ambulating with steady gait. Romberg negative. No overlying skin changes or deformity noted to left shoulder. No TTP. FROM intact to abduction and adduction of left shoulder. 2+ radial and ulnar pulses. Differential diagnosis includes facial fracture, blowout fracture, nasal bone fracture, scalp hematoma, headache, migraine, concussion, ICH, vertigo, orthostatic hypotension. Unlikely septal hematoma, ACS, arrhythmia, PE, UTI, cerebellar stroke, dissection, TBI. Plan for basic labs, trop, EKG, CXR, xray left shoulder, neck/head imaging, facial bone CT, pain control, IVF, and re-evaluation. Differential Diagnosis Differential Diagnoses: The differential diagnosis associated with the presentation includes as above. Admission/Observation Consideration of admission/observation: Escalation of care including admission/observation considered Admission considered on presentation Lab Data MDM Lab Attestation statement: I reviewed the patient's lab results. as above. 08/24/23 14:58 08/24/23 14:58 Labs: Lab Results 08/24/23 08/24/23 Range/Units 14:58 15:55 WBC 7.4 (4.8-10.8) X10*3/uL RBC 4.66 (4.20-5.50) X10*6/uL Hgb 13.0 (12.0-16.0) g/dl Hct 39.5 (37.0-47.0) % MCV 84.8 (80.0-98.0) fL MCH 27.9 (27.0-33.0) pg MCHC 32.9 (31.0-35.0) g/dl RDW 14.7 (11.0-16.0) % Plt Count 252 (160-400) X10*3/uL MPV 9.7 (9.4-12.3) fL Immature Gran % (Auto) 0.1 (0.0-0.4) % Neut % (Auto) 48.0 (45-73) % Lymph % (Auto) 40.3 H (20-40) % Fillmore % (Auto) 8.7 (2-11) % Eos % (Auto) 2.8 (0-4) % Baso % (Auto) 0.1 (0-2) % Lymph # (Auto) 3.0 (1.2-4.9) X10*3/uL [place] # (Auto) 0.6 (0.1-1.2) X10*3/uL Eos # (Auto) 0.2 (0.0-0.4) X10*3/uL Baso # (Auto) 0.0 (0.0-0.2) X10*3/uL Abs Immat Gran (auto) 0.01 (0.00-0.03) X10*3/uL Absolute Neuts (auto) 3.5 (2.0-8.3) x10*3/uL Absolute Nucleated RBC 0.000 (0.0-0.012) X10*3/uL Nucleated RBC % (auto) 0.0 (0.0-0.2) /100WBC PT 13.0 (11.1-13.3) SEC INR 1.1 (0.9-1.1) Sodium 141 (135-145) mmol/L Potassium 3.9 (3.3-5.1) mmol/L Chloride 103 (96-108) mmol/L Carbon Dioxide 25 (22-29) mmol/L Anion Gap 17 (12-20) BUN 9 (9-16) mg/dL Creatinine 0.71 (0.5-1.4) mg/dL Estim Creat Clear Calc 66.4 Estimated GFR > 60 Random Glucose 86 (60-115) mg/dL Calcium 10.2 D (8.4-10.2) mg/dL Magnesium 2.1 (1.6-2.6) mg/dL Total Bilirubin 0.5 (0.0-1.0) mg/dL AST 20 (5-31) U/L ALT 12 (0-31) U/L Alkaline Phosphatase 88 (39-117) U/L Total Creatine Kinase 75 (26-140) U/L Troponin I High Sens < 2.7 (<3.5-17.0) ng/L Total Protein 7.7 (6.5-8.0) g/dL Albumin 4.4 (3.5-5.0) g/dL Lipase 10 (8-78) U/L Independent Interpretation I performed an independent interpretation of an: EKG, Plain X-Ray and CT Scan Interpretation: EKG showing normal sinus rhythm with a rate of 75 beats per minute, QT 386, QTC 431, no acute ischemic changes or ST elevations. Chest x-ray without consolidation or infiltrate to suggest pneumonia, agree with radiologist's interpretation. X-ray of cervical spine without fracture, agree with radiologist's interpretation. X-ray left shoulder without fracture or dislocation, agree with radiologist's interpretation. CT scan of facial bones showing soft tissue swelling over nose, agree with radiologist's interpretation. CT head/brain without acute bleed or skull fracture, agree with radiologist's interpretation. Radiology Impression Discussion of test interpretation with radiology: I have reviewed the radiologist's reading. Radiologist Impression: EXAMINATION: XR CERVICAL SPINE CLINICAL INFORMATION: Status post fall COMPARISON: None available. TECHNIQUE: 3 views of the cervical spine were obtained. FINDINGS: Status post anterior cervical fusion of C6-C7, grossly intact. No acute visible fracture or dislocation. Straightening the normal cervical curvature. Multilevel degenerative changes with anterior bridging osteophyte formation and facet arthropathy. Vertebral body heights and disc spaces are maintained. Prevertebral soft tissues are unremarkable. Posterior elements are intact. Paraspinal soft tissues are unremarkable. Visualized portions of the upper chest are unremarkable. XR/XR cervical spine 2V IMPRESSION: 1. No acute visible fracture or dislocation. 2. Status post anterior cervical fusion of C6-C7, grossly intact. 3. Straightening the normal cervical curvature. 4. Multilevel degenerative changes. EXAMINATION: XR SHOULDER, LEFT CLINICAL INFORMATION: Pain status post fall COMPARISON: None available. TECHNIQUE: Three views of the left shoulder. FINDINGS: No acute visible fracture or dislocation. Increased acromiohumeral interval suggesting rotator cuff pathology. Degenerative changes of the glenohumeral and acromioclavicular joint. Joint space alignment are otherwise maintained. Cervical spinal hardware, grossly intact. Soft tissues are unremarkable. XR/XR shoulder LT min 2V IMPRESSION: 1. No acute visible fracture or dislocation. 2. Increased acromiohumeral interval suggesting rotator cuff pathology. 3. Degenerative changes of the glenohumeral and acromioclavicular joint. EXAMINATION: CT HEAD AND FACIAL BONES WITHOUT CONTRAST CLINICAL INFORMATION: Fall onto face and head COMPARISON: None TECHNIQUE: Contiguous axial imaging was performed from the skull base to vertex and facial bones without intravenous administration of contrast. This CT examination was performed using dose optimization techniques as appropriate, variously including the following: *Automated exposure control *Adjustment of mA and/or kV according to patient size (this includes techniques or standardized protocols for targeted exams where dose is matched to indication/reason for exam; i.e. extremities or head) *Use of iterative reconstruction technique DLP: 721.81 mGy-cm (CT Head) 283.79 mGy-cm (CT Facial Bones) FINDINGS: There is no evidence of acute intracranial hemorrhage or territorial infarction. Chronic white matter small vessel ischemic changes. No abnormal mass effect or midline shift is seen. Arcos to white matter differentiation is well preserved. No extra-axial fluid collections are identified. The ventricles are normal in size. There is no abnormal attenuation within the brain parenchyma.. Comminuted fractures of the bilateral nasal bones, left greater than right with overlying soft tissue swelling. Soft tissue swelling overlying the right frontal bone without underlying bony defect. The paranasal sinuses are well-aerated. No air-fluid levels are seen. There is minimal rightward deviation of the nasal septum. The ostiomeatal complexes are clear. The lamina papyracea are intact. The ethmoid roofs are symmetric. No maxillary periapical disease is seen. Mucoperiosteal thickening of the right maxillary sinus. The mastoid air cells and visualized middle ear cavities are well-aerated. The orbits are normal. The TMJs are unremarkable. Partially visualized cervical spinal hardware, grossly intact CT/CT head/brain/ facial bones wo IV con IMPRESSION: 1. No acute intracranial pathology. 2. Comminuted fractures of the bilateral nasal bones, left greater than right with overlying soft tissue swelling. 3. Soft tissue swelling overlying the right frontal bone without underlying bony defect. 4. Chronic white matter small vessel ischemic changes. EXAMINATION: XR CHEST CLINICAL INFORMATION: Dizziness. COMPARISON: June 08, 2023. TECHNIQUE: 2 views of the chest were obtained. FINDINGS: No acute infiltrate, effusion, pneumothorax is seen. The heart appears normal in size. The aorta is uncoiled, suggesting hypertension. Lower cervical anterior fixation plate and screws are present. Surgical clips project over the left upper quadrant. XR/XR chest 2V IMPRESSION: No acute finding. Independent Historian Clinical information obtained from an independent historian. History obtained from or confirmed by: Friend External Record Review External record reviewed: Inpatient record, Office record, Outpatient record, Prior outpatient labs, Prior outpatient radiology, Primary care record and Outside ED record Prescription Management I considered prescription management with: Pain Medication Chronic Conditions Patient?s care impacted by: Other (vertigo) Social Determinants Patient?s care significantly limited by Social Determinants of Health including: Other Social Determinant of Health Critical Care Time Critical Care Time Critical Care Time: Yes Total Critical Care Time: 90 Attestation: Critical care time in the amount of 90 minutes has been provided to the patient in terms of direct patient care, frequent reevaluation, review and interpretation of medical data and results, and management of potentially life- threatening conditions. This is all outside of any medical procedures. Discharge Plan Discharge Clinical Impression: Fracture of nasal bones, closed Patient Disposition: Home, Self-Care Instructions: Nasal Fracture (ED), Facial Fracture (ED) Additional Instructions: Your lab work today is reassuring. Your EKG is normal. The CT of your head/brain does not show bleed or skull fracture. The CT of your facial bones shows comminuted fracture of both nasal bones. YOU NEED TO FOLLOW UP WITH ENT DOCTOR. A REFERRAL HAS BEEN PROVIDED. CALL THEM TOMORROW MORNING FOR URGENT APPOINTMENT. The xrays of your left shoulder shows rotator cuff injury. You have been provided with a sling. Please follow up with ortho. You have been provided with a referral. Call to make an appointment. The xray of your neck shows degenerative changes. Your chest xray is normal. Take ibuprofen at home as needed for pain/discomfort. Tylenol #3 is a controlled pain medication that has been sent to your pharmacy. You may take this for breakthrough pain. Return with new or worsening symptoms. In the case of an emergency call 911. Prescriptions: New acetaminophen-codeine 300-30 mg tablet 1 tab PO Q12H PRN (Reason: pain (scale score 7-10)) Qty: 7 0RF No Action (DME) hospital bed Kit See Rx Instructions .Route Qty: 1 0RF Rx Instructions: daily (DME) chair lift See Rx Instructions .Route .MEDSUPPLY Qty: 1 0RF Rx Instructions: daily use atorvastatin 80 mg tablet 40 mg PO BEDTIME pantoprazole 40 mg tablet,delayed release (DR/EC) 40 mg PO DAILY Qty: 90 1RF hydroxyzine HCl 25 mg tablet 25 mg PO DAILY 30 Days Qty: 30 0RF levothyroxine 112 mcg tablet 112 mcg PO QAM Qty: 90 1RF albuterol sulfate 90 mcg/actuation HFA aerosol inhaler 1 puff inhalation QID Qty: 8.5 0RF atenolol 50 mg tablet 50 mg PO DAILY Qty: 90 1RF Hold Instructions: Resume on 06/19/23. Check your blood pressure every morning as soon as you wake up and send it to Dr. Alberto. Do no take the blood pressure medication if the blood pressure is below 120/70. Wait every day to hear back from Dr. Alberto before you take the medication. alendronate 70 mg tablet 70 mg PO QWEEK 90 Days Qty: 13 0RF rizatriptan 10 mg tablet See Rx Instructions PO .COMPLEX Qty: 14 2RF Rx Instructions: take 1 tab at onset of headache; if no relief may repeat 1 tab after at least 2 hrs; max = 3 tabs/24 hr PO duloxetine 60 mg Capsule,Delayed Release(Dr/Ec) 60 mg PO BID PRN (Reason: Agitation) meclizine 12.5 mg tablet 12.5 mg PO BID PRN (Reason: dizziness) Qty: 14 0RF trazodone 100 mg tablet 150 mg PO BEDTIME inulin 2 gram tablet,chewable 2 g PO DAILY Qty: 90 3RF docusate sodium [Colace] 100 mg capsule 100 mg PO DAILY Qty: 60 0RF sucralfate 100 mg/mL suspension 10 ml PO BID Qty: 600 2RF ondansetron 4 mg tablet,disintegrating 4 mg PO Q12H Qty: 20 0RF Rx Instructions: Only take one every 12 hours as needed if you have nausea Referrals: Addi Holland, [employer] [Primary Care Provider] - Dandre Carvalho [Physician] - 2 days (Comminuted fractures of the bilateral nasal bones, left greater than right with overlying soft tissue swelling.) Print Language: Burmese
[2023-08-24 16:10] LABS: INTERNATIONAL NORM RATIO 1.1 (0.9-1.1)
[2023-08-24] MEDS: Acetaminophen 325 MG TABLET 975 MG PO (16:25)
--- NOTE | 2023-08-24 16:30 | PC.NURSE ---
pt medicated for pain per order
--- NOTE | 2023-08-24 18:43 | PC.NURSE ---
sling applied to lt arm + csm/pulses
[2023-08-24 18:44] VITALS: BP 148/83; PULSE 72; RESP 16; TEMP 36.7; O2SAT 100
== END 2023-08-24 18:45 | disposition home or self-care (01) ==
PROVIDERS: Physician Assistant Medical; Emergency Provider Emergency Medicine; PCP Nurse Practitioner Family
DX: S01.81XA Laceration without foreign body of other part of head, initial encounter (principal); S01.21XA Laceration without foreign body of nose, initial encounter; S49.92XA Unspecified injury of left shoulder and upper arm, initial encounter; S02.2XXA Fracture of nasal bones, initial encounter for closed fracture; W18.11XA Fall from or off toilet without subsequent striking against object, initial encounter; Y93.9 Activity, unspecified; Y92.9 Unspecified place or not applicable; Y99.9 Unspecified external cause status; Y92.002 Bathroom of unspecified non-institutional (private) residence as the place of occurrence of the external cause; R42 Dizziness and giddiness
CPT/HCPCS: 29105; 36415; 70450; 70486; 71046; 72040; 73030; 80053; 82550; 83690; 83735; 84484; 85025; 85610; 93005; 96360; 96361; 99284

== ENCOUNTER → 2023-08-24 14:45 | Outpatient (BNV) | payer OTHER, SELFPAY | PROVIDERS: Emergency Provider Emergency Medicine; PCP Nurse Practitioner Family; Visit Provider Internal Medicine Cardiovascular Disease | DX: R55 Syncope and collapse (principal) | CPT/HCPCS: 93010 ==

== ENCOUNTER 2023-08-25 13:30 | Outpatient (AMB) | payer OTHER, SELFPAY ==
--- NOTE | 2023-08-25 13:31 | A.OFFVIS_ITS ---
VS Expanded 08/25/23 13:36 Height 5 ft 2 in Weight 154 lb BMI 28.2 Intake Visit Reasons: (TV) PO LSG 06/17/2023 Allergies tramadol Allergy (Severe, Verified 08/24/23 11:05) Itching Medication List - Last Reconciled 08/25/23 by YOUNG Goins acetaminophen-codeine 300-30 mg 1 tab PO Q12H PRN albuterol sulfate 90 mcg/actuation 1 puff inhalation QID alendronate 70 mg PO QWEEK 90 days atenolol 50 mg PO DAILY atorvastatin 40 mg PO BEDTIME [chair lift daily use NS] docusate sodium (Colace) 100 mg PO DAILY duloxetine 60 mg PO BID PRN hospital bed daily hydroxyzine HCl 25 mg PO DAILY 30 days inulin 2 grams PO DAILY levothyroxine 112 mcg PO QAM meclizine 12.5 mg PO BID PRN pantoprazole 40 mg PO DAILY rizatriptan take 1 tab at onset of headache; if no relief may repeat 1 tab after at least 2 hrs; max = 3 tabs/24 hr PO trazodone 150 mg PO BEDTIME HPI Comments Details: This?is a 73 yo female who is s/p LSG 06/17/2023. Presents for 10 week post op visit. Weight at last visit on 07/23 was 161.4 pounds with a BMI of 29.5, weight today is 154 pounds, representing a 7.4 pound weight loss with a BMI today of 28.2.? No complaints of nausea, emesis, abdominal pain or reflux, or constipation. Pt reports a fall yesterday resulting in a broken nose, was in ER. Present meal plan includes: Celebrate 1 shake with 1 scoop each in 8oz unsweetened almond milk Celebrate bar 1 bar per day 4 forks each of protein and veg not taking antonia MVI Exercise routine includes: going to gym, trying to use bike for 300 calories per day has light weights at home 2-3lb weights is planning to hold off on exercise for now after injury [facility] Medical History Insomnia PONV (postoperative nausea and vomiting) GERD (gastroesophageal reflux disease) Oropharyngeal dysphagia Gastritis Migraines Dyslipidemia Hypothyroidism Osteoporosis Anxiety Essential hypertension Surgical History History of shoulder surgery History of section History of nasal surgery History of surgery History of carpal tunnel surgery History of neck surgery Family History Father Cancer of prostate Mother HTN (hypertension) Maternal Grandmother Stroke Asthma Brother Substance use disorder Social History Household Members: Spouse Housing: Apartment 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 at 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: Yes (, 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 has a MANAGER DATABASE ADMINISTRATION) Do you presently have 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 or other home services: No Alcohol intake: never Patient Tobacco Use Status: Former Tobacco user Quit Date: 1977 Tobacco use type: Cigarette e-Cigarette/Vaping Use: Never Used Second Hand Smoke Exposure: No Advance Directives: No Do you have a plan to hurt others: No Plan service: No Current occupational status: retired Cognitive needs: No Hearing needs: No Vision needs: No Telehealth Telehealth Telehealth Platform: Telephone Location of provider rendering services: other Location of patient: address on file Patient Identification confirmed using: Name, : Yes Telehealth method: voice only Patient verbally consented to treatment: Yes Patient verbally consented to billing insurance company: Yes Patient informed of any privacy concerns related to visit: Yes Minutes spent on Phone/Video with Pt.: 15 Assessment & Plan Assessment & Plan (1) Overweight: Code(s): E66.3 - Overweight Category: Medical (2) S/P laparoscopic sleeve gastrectomy: Comment: june 2023 Code(s): Z98.84 - Bariatric surgery status Category: Medical Plan Pt to continue same meal plan; I advised her to start antonia MVI. She plans to come to gift shop next week to purchase. Carafate course completed, pantoprazole almost complete, she remains off atenolol with good BP. RTC 4-6 weeks. Encouraged pt to reach out via text between appts with any questions. Patient is overweight and is not considered stable at this time. I spent a total of 30 minutes reviewing/updating records, examining the patient and counseling the patient on weight management as detailed above.
[2023-08-25 13:36] VITALS: BMI 28.2
== END 2023-08-25 13:57 | disposition home or self-care (01) ==
PROVIDERS: PCP Nurse Practitioner Family; Visit Provider Physician Assistant Surgical
DX: E66.3 Overweight (principal); Z68.28 Body mass index [BMI] 28.0-28.9, adult; Z90.3 Acquired absence of stomach [part of]; Z98.84 Bariatric surgery status
CPT/HCPCS: 99024

== ENCOUNTER → 2023-08-25 13:30 | Outpatient (BNVA) | payer OTHER, SELFPAY | PROVIDERS: PCP Nurse Practitioner Family; Visit Provider Physician Assistant Surgical | DX: E66.3 Overweight (principal); Z98.84 Bariatric surgery status ==

== ENCOUNTER 2023-08-31 12:08 | Outpatient (REF) | payer OTHER, SELFPAY ==
--- NOTE | ~2023-08-31 | MM_ITS ---
EXAMINATION: MM SCREENING DIGITAL BREAST TOMOSYNTHESIS, BILATERAL CLINICAL INFORMATION: Screening. Asymptomatic. COMPARISON: Mammography: This study is compared with prior exams dating back to 2020. TECHNIQUE: Digital breast tomosynthesis is performed in both the craniocaudal and mediolateral oblique views along with computer-aided detection (CAD). Synthesized 2D images are generated from the tomosynthesis. FINDINGS: The breasts are heterogeneously dense, which may obscure small masses (ACR BI-RADS breast composition Category c). There are no significant masses, abnormal calcifications, or other abnormalities. MM/MM tomosynthesis screening BI IMPRESSION: No mammographic evidence of malignancy. ASSESSMENT: BI-RADS BI-RADS 1 - Negative RECOMMENDATION: Routine annual mammography screening. 1 year F/U This examination should not preclude the clinical evaluation of a suspicious palpable abnormality. This patient's information was entered into a reminder system with a target due date for their next mammogram.
== END 2023-08-31 12:09 | disposition home or self-care (01) ==
LOC: HO.MAMMO 12:08
PROVIDERS: PCP Nurse Practitioner Family; Visit Provider Nurse Practitioner Family
DX: Z12.31 Encounter for screening mammogram for malignant neoplasm of breast (principal)
CPT/HCPCS: 77063; 77067

== ENCOUNTER → 2023-08-31 12:45 | Outpatient (BNV) | payer OTHER, SELFPAY | PROVIDERS: PCP Nurse Practitioner Family; Visit Provider Radiology Diagnostic Radiology | DX: Z12.31 Encounter for screening mammogram for malignant neoplasm of breast (principal) | CPT/HCPCS: 77063; 77067 ==

== ENCOUNTER 2023-09-07 14:06 | Outpatient (AMB) | payer OTHER, SELFPAY ==
--- NOTE | 2023-09-07 14:25 | MHC.PC.OV ---
Vital Signs 09/07/23 14:26 Height 5 ft 2 in Weight 155 lb BMI 28.3 BP 112/72 Blood Pressure Location Lt brachial Position Sitting Pulse 84 Pulse Source Pulse Oximeter Pulse Oximetry (%) 98 Oxygen Delivery Method Room Air Intake Visit Reasons: ENT Referral broken nose Intake Note: Pt is here today for ER follow up visit. Pt states that she needs referral to ENT. Allergies tramadol Allergy (Severe, Verified 09/07/23 16:37) Itching Medication List - Last Reconciled 09/07/23 by Addi Holland, MEAT CLERK- acetaminophen-codeine 300-30 mg 1 tab PO Q12H PRN albuterol sulfate 90 mcg/actuation 1 puff inhalation QID alendronate 70 mg PO QWEEK 90 days atenolol 50 mg PO DAILY atorvastatin 40 mg PO BEDTIME [chair lift daily use NS] docusate sodium (Colace) 100 mg PO DAILY duloxetine 60 mg PO BID PRN hospital bed daily hydroxyzine HCl 25 mg PO DAILY 30 days inulin 2 grams PO DAILY levothyroxine 112 mcg PO QAM meclizine 12.5 mg PO BID PRN miscellaneous medical supply daily use, ECO-Patch Reusable self adhesive electrodes for TENS FES/NMES pantoprazole 40 mg PO DAILY rizatriptan take 1 tab at onset of headache; if no relief may repeat 1 tab after at least 2 hrs; max = 3 tabs/24 hr PO trazodone 150 mg PO BEDTIME Tobacco use date assessed: 09/07/23 Fall risk assessment: 1 Fall in past year Last assessed Fall Risk: 09/07/23 Dental Screening Dental Screen Date: 09/07/23 Did you have a dental visit in the last 12 months?: Yes Did you have a dental problem in the last 6 months where you did not have access to dental care?: No Was dental information given to patient?: Patient has dentist HPI ENT Referral broken nose HPI Details Pt was seen in the ER on 08/23 after a fall due to dizziness. CBC was without leukocytosis or left shift. No anemia, H&H stable, coags were WNL. Chemistry without acute electrolyte abnormality. Troponin was undetectable. EKG showed normal sinus rhythm with a rate of 75 beats per minute, QT 386, QTC 431, no acute ischemic changes or ST elevations. CT of the head/brain does not demonstrate acute bleed or skull fracture. CT facial bones shows comminuted fractures of bilateral nasal bones with left greater than right along with overlying soft tissue swelling. There is soft tissue swelling overlying the right frontal bone without underlying bony defect correlating with physical exam. Chest x-ray without infiltrate or consolidation. No pneumonia. XR of left shoulder showing increased acromiohumeral interval suggesting rotator cuff pathology. There is no acute fracture or dislocation. There are degenerative changes within the glenohumeral and acromioclavicular joint. It was recommended that pt follow up with ortho. XR of the cervical spine without fracture or dislocation. Intact cervical fusion of C6-C7. Lacs to forehead and nose did not require repair. Pt was referred to ENT, she has an upcoming appointment. Pt reports some difficulty with breathing out of her right nostril. Denies fever, chills, and dizziness. [facility] Medical History Insomnia PONV (postoperative nausea and vomiting) GERD (gastroesophageal reflux disease) Oropharyngeal dysphagia Gastritis Migraines Dyslipidemia Hypothyroidism Osteoporosis Anxiety Essential hypertension Surgical History History of shoulder surgery History of section History of nasal surgery History of surgery History of carpal tunnel surgery History of neck surgery Family History Father Cancer of prostate Mother HTN (hypertension) Maternal Grandmother Stroke Asthma Brother Substance use disorder Social History Household Members: Spouse Caregiver staying overnight: No Housing: Apartment 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 17898 - PHQ-9 Billing: Patient declined-do not bill Source: Developed by Drs. Jerrod Jain, Sixto Hernandez and colleagues, with an educational rosalee from [employer]. Thrive Questionnaire Date Thrive assessed: 06/18/23 AUDIT C Alcohol Use Questionnaire (AUDIT-C) 1. How often do you have a drink containing alcohol?: Never 3. How often do you have six or more drinks on one occasion?: Never Total Score: 0 JUANA-7 AMB Questionnaire JUANA-7 Date JUANA - 7 assessed: 09/07/23 Source: Developed by Sally García Kurt Kroenke and colleagues, with an educational rosalee from [employer]. JUANA-7 Assessment Billing JUANA-7 Assessment Tool: pt declined-do not bill Review of Systems Const Reports as per HPI Physical exam (Primary Care) Vital Signs: Last Vital Signs Pulse 84 09/07/23 14:26 BP 112/72 09/07/23 14:26 Pulse Ox 98 09/07/23 14:26 Oxygen Delivery Method Room Air 09/07/23 14:26 BMI result Body Mass Index 28.3 Tobacco/Smoking Status: Tobacco use Status Tobacco use date assessed 09/07/23 09/07/23 14:31 Patient Tobacco Use Status Former Tobacco user 09/07/23 14:31 Tobacco use type Cigarette 09/07/23 14:28 e-Cigarette/Vaping Use Never Used 09/07/23 14:28 Thrive Assessment: Date of Thrive Assessment Date Thrive assessed 06/18/23 09/07/23 14:28 Const General: cooperative Orientation/consciousness: patient oriented x3 HENOK Other: deviated septum, upper inner lip healed, superior medial to right orbital with healing laceration Resp Effort & Inspection: normal respiratory effort Auscultation: clear to auscultation bilaterally Cardio Rate: regular rate Rhythm: regular rhythm Heart sounds: S1 normal heart sound present and S2 normal heart sound present Neuro General: patient oriented x3 Psych Appearance: grossly normal Mental Status: mental status grossly normal Speech and movement: Normal speech and movement present Affect: normal affect Attitude: cooperative Thought process: Normal thought process present Thought content: Normal thought content present Insight: Good insight present (Psych) Judgement: Good judgement present (Psych) Assessment and Plan Assessment & Plan (1) Fall: Code(s): W19.XXXA - Unspecified fall, initial encounter Plan: no similar symptoms since fall. ? othorstatic changes (2) Facial laceration: Code(s): S01.81XA - Laceration without foreign body of other part of head, initial encounter (3) Fractured nose: Code(s): S02.2XXA - Fracture of nasal bones, initial encounter for closed fracture Plan: following up with ENT Plan The patient agreed to the use of a biomedical manager for this encounter. Scribed for SRIDHAR Ordoñez-ALYSSA by Naomie Lua biomedical manager, on 09/07/2023 at 15:20 EST. Medications: New miscellaneous medical supply daily use, ECO-Patch Reusable self adhesive electrodes for TENS FES/NMES 4 ea 3RF back pain Coding Level of Care Code Est Pt Level 3 (87680) Diagnoses Fall W19.XXXA Facial laceration S01.81XA Fractured nose S02.2XXA
[2023-09-07 14:26] VITALS: BP 112/72; PULSE 84; O2SAT 98; BMI 28.3
== END 2023-09-07 16:31 | disposition home or self-care (01) ==
PROVIDERS: PCP Nurse Practitioner Family; Visit Provider Nurse Practitioner Family
DX: S01.81XA Laceration without foreign body of other part of head, initial encounter (principal); W19.XXXA Unspecified fall, initial encounter; S02.2XXA Fracture of nasal bones, initial encounter for closed fracture
CPT/HCPCS: 99213

== ENCOUNTER 2023-10-04 12:04 | Outpatient (AMB) | payer OTHER, SELFPAY ==
--- NOTE | 2023-10-04 11:40 | A.OFFVIS_ITS ---
VS Expanded 10/04/23 11:42 Height 5 ft 2 in Weight 151 lb BMI 27.6 Intake Visit Reasons: (TELEPHONE) PO LSG 06/17/23 Allergies tramadol Allergy (Severe, Verified 09/07/23 16:37) Itching Medication List - Last Reconciled 10/04/23 by YOUNG Goins acetaminophen-codeine 300-30 mg 1 tab PO Q12H PRN albuterol sulfate 90 mcg/actuation 1 puff inhalation QID alendronate 70 mg PO QWEEK 90 days atenolol 50 mg PO DAILY atorvastatin 40 mg PO BEDTIME [chair lift daily use NS] docusate sodium (Colace) 100 mg PO DAILY duloxetine 60 mg PO BID PRN hospital bed daily hydroxyzine HCl 25 mg PO DAILY 30 days inulin 2 grams PO DAILY levothyroxine 112 mcg PO QAM meclizine 12.5 mg PO BID PRN miscellaneous medical supply daily use, ECO-Patch Reusable self adhesive electrodes for TENS FES/NMES rizatriptan take 1 tab at onset of headache; if no relief may repeat 1 tab after at least 2 hrs; max = 3 tabs/24 hr PO trazodone 150 mg PO BEDTIME HPI Comments Details: This?is a?73?yo female who is s/p LSG 06/17/2023. Presents for 3.5 month post op visit. Weight at last visit on 08/25/2023 was 154 pounds with a BMI of 28.2, weight today is 151 pounds, representing a 3 pound weight loss with a BMI today of 27.6.? No complaints of nausea, emesis, abdominal pain or reflux, or constipation. Having surgery for her previous broken nose in 2 months. Present meal plan includes: eats 2x/day, includes meat/eggs, tries to make sure foods are high in protein occasionally will incorporate shake or bar taking antonia MVI Exercise routine includes: going to gym, trying to use bike for 300 calories per day has light weights at home 2-3lb weights PFSH Medical History Insomnia PONV (postoperative nausea and vomiting) GERD (gastroesophageal reflux disease) Oropharyngeal dysphagia Gastritis Migraines Dyslipidemia Hypothyroidism Osteoporosis Anxiety Essential hypertension Surgical History History of shoulder surgery History of section History of nasal surgery History of surgery History of carpal tunnel surgery History of neck surgery Family History (Reviewed 09/07/23 @ 16:37 by SRIDHAR [facility] Father Cancer of prostate Mother HTN (hypertension) Maternal Grandmother Stroke Asthma Brother Substance use disorder Social History (Reviewed 09/07/23 @ 16:37 by SRIDHAR [facility]EN[facility]) Household Members: Spouse Caregiver staying overnight: No Housing: Apartment 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 other at home: Yes (, he also has a SERVICE MANAGER) Do you presently have 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 or other home services: No 75 years or older and lives alone: No Alcohol intake: never Patient Tobacco Use Status: Former Tobacco user Tobacco use type: Cigarette e-Cigarette/Vaping Use: Never Used Second Hand Smoke Exposure: No service: No Current occupational status: retired Cognitive needs: No Hearing needs: No Vision needs: No Telehealth Telehealth Telehealth Platform: Telephone Location of provider rendering services: other Location of patient: address on file Patient Identification confirmed using: Name, : Yes Telehealth method: voice only Patient verbally consented to treatment: Yes Patient verbally consented to billing insurance company: Yes Patient informed of any privacy concerns related to visit: Yes Minutes spent on Phone/Video with Pt.: 12 Assessment & Plan Assessment & Plan (1) Overweight: Code(s): E66.3 - Overweight Category: Medical (2) S/P laparoscopic sleeve gastrectomy: Comment: june 2023 Code(s): Z98.84 - Bariatric surgery status Category: Surgical Plan Pt needs to meet protein goal of 60g/day, be sure current meal plan incorporates enough protein even if she is eating mostly regular food. She is comfortable at current weight and does not want to go below 150lbs. RTC 2 months for 6 month visit, can order labs at that time. Patient is overweight and is not considered stable at this time. I spent a total of 30 minutes reviewing/updating records, examining the patient and counseling the patient on weight management as detailed above.
[2023-10-04 11:42] VITALS: BMI 27.6
== END 2023-10-04 12:06 | disposition home or self-care (01) ==
LOC: HO.HBS 12:04
PROVIDERS: PCP Nurse Practitioner Family; Visit Provider Physician Assistant Surgical
DX: E66.3 Overweight (principal); Z68.27 Body mass index [BMI] 27.0-27.9, adult; Z90.3 Acquired absence of stomach [part of]; Z98.84 Bariatric surgery status
CPT/HCPCS: 99442

== ENCOUNTER → 2023-10-04 12:04 | Outpatient (BNVA) | payer OTHER, SELFPAY | PROVIDERS: PCP Nurse Practitioner Family; Visit Provider Physician Assistant Surgical | DX: E66.3 Overweight (principal); Z98.84 Bariatric surgery status ==

== ENCOUNTER 2023-11-24 10:25 | Outpatient (AMB) | payer OTHER, SELFPAY ==
--- NOTE | 2023-11-24 10:30 | MHC.OFFVISWM ---
VS Expanded 11/24/23 10:36 BP 135/85 Blood Pressure Location Rt brachial Blood Pressure Position Sitting Pulse 78 Pulse Source Pulse Oximeter Temp 96.9 F Temperature Source Temporal Artery Scan Pulse Oximetry 98 Oxygen Delivery Method Room Air Height 5 ft 2 in Weight 146 lb 9.6 oz BMI 26.8 Body Fat % 34.0 Body Fat Mass 49.8 Fat Free Mass 96.6 Visceral Fat Rating 9.0 Body Water % 46.2 Body Water Mass 67.6 Muscle Mass/Score 91.8 Basal Metabolic Rate/Score 1,302 Intake Visit Reasons: OV PO LSG 06/16/23 Allergies tramadol Allergy (Severe, Verified 11/24/23 10:42) Itching Medication List - Last Reconciled 11/24/23 by YOUNG Goins acetaminophen-codeine 300-30 mg 1 tab PO Q12H PRN albuterol sulfate 90 mcg/actuation 1 puff inhalation QID alendronate 70 mg PO QWEEK 90 days atenolol 50 mg PO DAILY atorvastatin 40 mg PO BEDTIME [chair lift daily use NS] docusate sodium (Colace) 100 mg PO DAILY duloxetine 60 mg PO BID PRN hospital bed daily hydroxyzine HCl 25 mg PO DAILY 30 days inulin 2 grams PO DAILY levothyroxine 112 mcg PO QAM meclizine 12.5 mg PO BID PRN miscellaneous medical supply daily use, ECO-Patch Reusable self adhesive electrodes for TENS FES/NMES rizatriptan take 1 tab at onset of headache; if no relief may repeat 1 tab after at least 2 hrs; max = 3 tabs/24 hr PO trazodone 150 mg PO BEDTIME HPI Comments Details: This?is a?73?yo female who is s/p LSG 06/16/2023. Presents for 5.5 month post op visit. Weight at last visit on 10/04/2023 was 151 pounds with a BMI of 27.6, weight today is 146.6 pounds, representing a 4.4 pound weight loss with a BMI today of 26.8.? No complaints of nausea, emesis, abdominal pain or reflux, or constipation. Did not end up having surgery for broken nose. Present meal plan includes: eats 2x/day, includes meat/eggs, tries to make sure foods are high in protein occasionally will incorporate shake or bar taking antonia MVI Exercise routine includes: going to gym, trying to use bike for 300 calories per day has light weights at home 2-3lb weights PFSH Medical History Insomnia PONV (postoperative nausea and vomiting) GERD (gastroesophageal reflux disease) Oropharyngeal dysphagia Gastritis Migraines Dyslipidemia Hypothyroidism Osteoporosis Anxiety Essential hypertension Surgical History History of shoulder surgery History of section History of nasal surgery History of surgery History of carpal tunnel surgery History of neck surgery Family History Father Cancer of prostate Mother HTN (hypertension) Maternal Grandmother Stroke Asthma Brother Substance use disorder Social History Household Members: Spouse Caregiver staying overnight: No Housing: Apartment 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 (, 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) Do you presently have 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 or other home services: No 75 years or older and lives alone: No Alcohol intake: never Patient Tobacco Use Status: Former Tobacco user Tobacco use type: Cigarette e-Cigarette/Vaping Use: Never Used Second Hand Smoke Exposure: No service: No Current occupational status: retired Cognitive needs: No Hearing needs: No Vision needs: No Physical Exam Vital Signs: Last Vital Signs Temp 96.9 F 11/24/23 10:36 Pulse 78 11/24/23 10:36 BP 135/85 11/24/23 10:36 Pulse Ox 98 11/24/23 10:36 Oxygen Delivery Method Room Air 11/24/23 10:36 BMI result Body Mass Index 26.8 Assessment & Plan Assessment & Plan (1) S/P laparoscopic sleeve gastrectomy: Comment: june 2023 Code(s): Z98.84 - Bariatric surgery status Category: Surgical (2) Overweight: Code(s): E66.3 - Overweight Category: Medical Plan Pt is comfortable at current weight and does not want to lose any more. Can start 1 serving of healthy fats per day and 1 serving of whole grains, start with 1oz, max 2oz. Discussed max volume of 8oz per meal. Pt will continue to weigh in weekly and trend weights. Labs ordered. RTC 2 months. I spent a total of 30 minutes reviewing/updating records, examining the patient and counseling the patient on weight management as detailed above. Orders: Orders Insulin Today Z98.84 - Bariatric surgery status Hemoglobin A1c Today Z98.84 - Bariatric surgery status IRON PROFILE Today Z98.84 - Bariatric surgery status C Reactive Protein Today Z98.84 - Bariatric surgery status Vitamin A Today Z98.84 - Bariatric surgery status TSH reflex Free T4 Today Z98.84 - Bariatric surgery status Ferritin Today Z98.84 - Bariatric surgery status Vitamin D 25-OH Total Today Z98.84 - Bariatric surgery status Complete Blood Count Auto Diff Today Z98.84 - Bariatric surgery status Lipid Panel Today Z98.84 - Bariatric surgery status Comprehensive Met. Panel Today Z98.84 - Bariatric surgery status Vitamin B12 and Folate Today Z98.84 - Bariatric surgery status Zinc Today Z98.84 - Bariatric surgery status Vitamin B1 Today Z98.84 - Bariatric surgery status
[2023-11-24 10:36] VITALS: BP 135/85; PULSE 78; TEMP 36.1; O2SAT 98; BMI 26.8
== END 2023-11-24 11:18 | disposition home or self-care (01) ==
PROVIDERS: PCP Nurse Practitioner Family; Visit Provider Physician Assistant Surgical
DX: E66.3 Overweight (principal); Z68.26 Body mass index [BMI] 26.0-26.9, adult; Z90.3 Acquired absence of stomach [part of]; Z98.84 Bariatric surgery status
CPT/HCPCS: 99214

== ENCOUNTER → 2023-11-24 10:25 | Outpatient (BNVA) | payer OTHER, SELFPAY | PROVIDERS: PCP Nurse Practitioner Family; Visit Provider Physician Assistant Surgical | DX: E66.3 Overweight (principal); Z71.3 Dietary counseling and surveillance; Z98.84 Bariatric surgery status; Z68.26 Body mass index [BMI] 26.0-26.9, adult | CPT/HCPCS: 99212 ==

== ENCOUNTER 2023-12-08 08:08 | Outpatient (AMB) | payer OTHER, SELFPAY ==
[2023-12-08 08:16] VITALS: BP 122/80; PULSE 80; O2SAT 100; BMI 27.4
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
== END 2023-12-08 09:23 | disposition home or self-care (01) ==
PROVIDERS: PCP Nurse Practitioner Family; Visit Provider Nurse Practitioner Family
DX: Z00.00 Encounter for general adult medical examination without abnormal findings (principal); M81.0 Age-related osteoporosis without current pathological fracture
CPT/HCPCS: 99397

== ENCOUNTER 2023-12-08 09:04 | Outpatient (REF) | payer OTHER, SELFPAY ==
[2023-12-08 10:09] LABS: MANUAL DIFF FLAG NO
[2023-12-08 10:13] LABS: Basophils Percent Auto 0.2 % (0-2); Eosinophils Absolute Auto 0.2 X10*3/uL (0.0-0.4); Eosinophils Percent Auto 4.1 % (0-4); Hematocrit 37.5 % (37.0-47.0); Hemoglobin 12.4 g/dl (12.0-16.0); Imm Gran Abs Auto 0.01 X10*3/uL (0.00-0.03); Imm Gran Pct Auto 0.2 % (0.0-0.4); Mean Corpuscular HGB Conc 33.1 g/dl (31.0-35.0); Mean Corpuscular Hemoglobin 28.2 pg (27.0-33.0); Mean Corpuscular Volume 85.2 fL (80.0-98.0); Mean Platelet Volume 9.9 fL (9.4-12.3); Monocytes Absolute Auto 0.4 X10*3/uL (0.1-1.2); Monocytes Percent Auto 8.4 % (2-11); Neutrophils Absolute Auto 2.5 x10*3/uL (2.0-8.3); Neutrophils Percent Auto 48.1 % (45-73); Platelet Count 228 X10*3/uL (160-400); Red Cell Distribution Width 13.9 % (11.0-16.0); White Blood Count 5.1 X10*3/uL (4.8-10.8)
[2023-12-08 10:25] LABS: Appearance Urine Clear; Color Urine Yellow; Estimated Average Glucose 111 mg/dL; Glucose Urine UA Negative (Negative); Hemoglobin A1c % 5.5 % (<6.0); Leukocyte Esterase Urine Small (1+) (Negative); Nitrite Urine Negative (Negative); Specific Gravity - Urine 1.025 (1.005-1.025); UMIC TRIGGER UACC YES; Urine Blood Negative (Negative); Urine Ketones Negative (Negative); Urine Protein Trace mg/dL (Neg-Trace)
[2023-12-08 10:39] LABS: Bacteria Urine None Seen (None Seen); Hyaline Casts Urine 0-2 /LPF (0-2); RBC Urine 0-2 /HPF (0-2); Squamous Epithelial Cell Urine 0-2 /HPF (0-2); UACC Culture Trigger YES; WBC Urine 0-5 /HPF (0-5)
[2023-12-08 10:58] LABS: Alanine Aminotransferase 12 U/L (0-31); Albumin Level 4.4 g/dL (3.5-5.0); Alkaline Phosphatase 99 U/L (39-117); Anion Gap 14 (12-20); Aspartate Amino Transferase 18 U/L (5-31); Bilirubin Total 0.5 mg/dL (0.0-1.0); Blood Urea Nitrogen 17 mg/dL (9-16); C Reactive Protein 0.14 mg/dL (< or = 0.50); Calcium 10.2 mg/dL (8.4-10.2); Carbon Dioxide 28 mmol/L (22-29); Chloride 103 mmol/L (96-108); Cholesterol 213 mg/dL (<200); Estimated Glomerular Filt Rate > 60; Glucose Fasting 94 mg/dL (60-99); Glucose Random 93 mg/dL (60-115); HDL Cholesterol 66 mg/dL (>40); Iron 88 mcg/dL (30-160); LDL Cholesterol Calculated 135 mg/dL (<100); Percent Iron Saturation 32 % (15-50); Potassium 4.7 mmol/L (3.3-5.1); Sodium 140 mmol/L (135-145); Total Iron Binding Capacity 274 mcg/dL (228-428); Total Protein 7.3 g/dL (6.5-8.0); Triglycerides 60 mg/dL (<150); Unsaturated Iron Binding 186 ug/dL
[2023-12-08 11:13] LABS: TSH reflex Free T4 4.43 uIU/mL (0.32-4.0)
[2023-12-08 11:14] LABS: Ferritin 117 ng/mL (10-250); Insulin 5 uU/mL (2-29)
[2023-12-08 11:26] LABS: Folate 13.5 ng/mL (> or = 4.0); Vitamin B12 751 pg/mL (200-900)
[2023-12-08 12:20] LABS: Free T4 (Free Thyroxine) 0.85 ng/dL (0.71-1.85)
[2023-12-12 13:28] LABS: Zinc 70 mcg/dL (60-130)
[2023-12-13 18:09] LABS: Vitamin A 37 mcg/dL (38-98)
[2023-12-16 06:29] LABS: Vitamin B1 25 nmol/L (8-30)
== END 2023-12-08 09:05 | disposition home or self-care (01) ==
LOC: HO.HMGCLDS 09:04
PROVIDERS: PCP Nurse Practitioner Family; Referring Provider Physician Assistant Surgical; Visit Provider Nurse Practitioner Family
DX: Z00.00 Encounter for general adult medical examination without abnormal findings (principal); Z98.84 Bariatric surgery status; R82.90 Unspecified abnormal findings in urine
CPT/HCPCS: 36415; 80053; 80061; 81001; 81003; 82306; 82607; 82728; 82746; 83036; 83525; 83540; 84425; 84439; 84443; 84590; 84630; 85025; 86140; 87086

== ENCOUNTER 2024-08-14 13:41 | Outpatient (AMB) | payer OTHER, SELFPAY ==
[2024-08-14 15:06] VITALS: BP 120/80; PULSE 68; O2SAT 98
--- NOTE | 2024-08-14 15:06 | AM.OFFWIN_ITS ---
Intake Vital Signs 08/14/24 15:06 Weight 154 lb BP 120/80 Blood Pressure Location Lt brachial Position Sitting Pulse 68 Pulse Source Pulse Oximeter Pulse Oximetry (%) 98 Oxygen Delivery Method Room Air Intake Visit Reasons: EP UTI Intake Note: Patient here for frequent urination,burning sensation and bladder pain that has been present for about 2 weeks. Patient Tobacco Use Status: Former Tobacco user Allergies tramadol Allergy (Severe, Verified 08/14/24 15:06) Itching Do you need a note to return to daycare/school/sports/work: No HPI HPI Comments History of Present Illness Details Patient presents to urgent care today for complaints of UTI symptoms. Endorses burning with urination, increased frequency and suprapubic abdominal pain for last 2 weeks. Denies fever, chills, back pain, hematuria, fevers or vomiting. Took Azo for a few days and symptoms improved, stopped the medication per box instructions and symptoms returned. [facility] Medical History Insomnia PONV (postoperative nausea and vomiting) GERD (gastroesophageal reflux disease) Oropharyngeal dysphagia Gastritis Migraines Dyslipidemia Hypothyroidism Osteoporosis Anxiety Essential hypertension Surgical History History of shoulder surgery History of section History of nasal surgery History of surgery History of carpal tunnel surgery History of neck surgery Family History Father Cancer of prostate Mother HTN (hypertension) Maternal Grandmother Stroke Asthma Brother Substance use disorder Social History Household Members: Spouse Caregiver staying overnight: No Housing: Apartment 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 (, 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) Do you presently have 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 or other home services: No 75 years or older and lives alone: No Alcohol intake: never Patient Tobacco Use Status: Former Tobacco user Tobacco use type: Cigarette e-Cigarette/Vaping Use: Never Used Second Hand Smoke Exposure: No service: No Current occupational status: retired Cognitive needs: No Hearing needs: No Vision needs: No Review of Systems Const All systems reviewed & are unremarkable except as noted in HPI and below Physical Exam Vital Signs: Last Vital Signs Pulse 68 08/14/24 15:06 BP 120/80 08/14/24 15:06 Pulse Ox 98 08/14/24 15:06 Oxygen Delivery Method Room Air 08/14/24 15:06 General: awake, alert, oriented. Answers questions appropriately. Fully engaged in examination. Skin: warm, dry, intact HEENT: Normocephalic. Hearing intact. Cardiac: External chest normal in appearance. Respiratory: No cough, audible wheezing or stridor. Abdomen: without gross distension. soft, nontender. no guarding. no CVA tenderness MS: No obvious swelling or deformities. Neurological: Oriented to person, place, time and situation. Thought process intact. No gait abnormalities appreciated. Psychiatric: Appropriate mood and affect. Good judgment and insight. Results AMB Urinalysis, Automated UA Leukoctes 70 Nikhil/uL Last Edit by Zia Garcia [facility] on 08/14/24 15:2 3 UA Nitrite Negative Last Edit by Zia Garcia [facility] on 08/14/24 15:23 UA Urobilinogen 0.2 mg/dL Last Edit by Zia Garcia [facility] on 08/14/24 15:23 UA Protein 0 mg/dL Last Edit by Zia Garcia [facility] on 08/14/24 15:23 UA pH 6.0 Last Edit by Zia Garcia [facility] on 08/14/24 15:23 UA Blood 80 Vimal/uL Last Edit by Zia Garcia [facility] on 08/14/24 15:23 UA Specific [place] 1.015 Last Edit by Zia Garcia [facility] on 08/14/24 15:23 UA Ketone Negative Last Edit by Zia Garcia [facility] on 08/14/24 15:23 UA Bilirubin 0 mg/dL Last Edit by Zia Garcia [facility] on 08/14/24 15:23 UA Glucose 0 mg/dL Last Edit by AngieRobyn Garcia [facility] on 08/14/24 15:23 Results Reviewed Results Reviewed: UA: 1+ leuks, 2+ blood, negative nitrites, negative ketones Assessment & Plan Assessment & Plan (1) UTI (urinary tract infection): Code(s): N39.0 - Urinary tract infection, site not specified Plan Take antibiotics as directed. Increase fluid intake. Return to clinic for new fever or back pain or if symptoms persist. Orders: Orders AMB Urinalysis Automated Today Z13.9 - Encounter for screening, unspecified Medications: New nitrofurantoin macrocrystal must administer with a meal/food 100 mg PO Q12H 10 caps 0RF Coding Level of Care Code Est Pt Level 3 (53343) Diagnoses UTI (urinary tract infection) N39.0
--- OUTSIDE RECORDS SUMMARY | 2024-08-14 15:12 | XMS_ITS | Patient Health Record ---
Author Organization [employer]. Address [address] [place] [address] Care Team Providers Care Kitchenwhere Maker Name Role Phone Macario Scott Primary Care Provider Allergies Allergen (clinical drug ingredient) Drug/Non Drug Allergy documented on EMR Reaction Allergy Type Onset Date Status tramadol Tramadol rash Drug Allergy Active Results Component Value Reference Range Notes Occult Blood, Fecal, IA-LAB BRENNON Reviewed date:05/04/2024 04:08:08 PM Interpretation: Performing Lab:[facility] [address] [id number], Phone - [phone], Director - Bree Notes/Report: Occult Blood, Fecal, IA Negative Negative Cardiovascular Risk Assessme nt Reviewed date:04/26/2024 08:51:11 AM Interpretation: Performing Lab:[facility] [address] [id number], Phone - [phone], Director - Bree Notes/Report: Interpretation Note Supplemental report is available. PDF . Cardiovascular Risk Assessme nt Reviewed date:04/06/2024 12:00:17 PM Interpretation: Performing Lab:[facility] [address] [id number], Phone - [phone], Director - Bree Notes/Report: Interpretation Note Supplemental report is available. PDF . Microalb/Creat Ratio, Timed Ur-LC Reviewed date:04/26/2024 08:51:11 AM Interpretation: Performing Lab:[facility] [address] [id number], Phone - [phone], Director - Bree Notes/Report: Ur.Collec. Interval 0 Creatinine, Urine 86.5 Not Estab. mg/dL Albumin, Urine 3.9 Not Estab. ug/mL Alb/Creat Ratio 4.5 0.0-30.0 ug/mg creat Alb, U Excret. Rate 0.0-20.0 ug/min No to bakari volume submitted. Unable to calculate 24 hour result. Albumin,Ur mg/day TNP Unable to calculate result since non-numeric result obtained for component test. TSH reflex to T4 Reviewed date:04/26/2024 08:51:11 AM Interpretation: Performing Lab:[address] [id number], Phone - [phone], Director - MDFarrier Notes/Report: TSH 3.730 0.450-4.500 uIU/mL EKG Electrocardiogram Reviewed date:03/24/2024 02:15:49 PM Interpretation: Performing Lab: Notes/Report: Lipid Panel-Q-LC Reviewed date:03/31/2024 08:45:24 AM Interpretation: Performing Lab:[address] [id number], Phone - [phone], Director - MDFarrier Notes/Report: Cholesterol, Total 222 100-199 mg/dL Triglycerides 65 0-149 mg/dL HDL Cholesterol 76 >39 mg/dL VLDL Cholesterol Koby 11 5-40 mg/dL LDL Chol Calc ([facility]) 135 0-99 mg/dL Comprehensive Metabolic Pane l 14+eGFR-LC-Q Reviewed date:03/31/2024 08:45:20 AM Interpretation: Performing Lab:[address] [id number], Phone - [phone], Director - MDFarrier Notes/Report: Glucose 82 70-99 mg/dL BUN 9 8-27 mg/dL Creatinine 0.83 0.57-1.00 mg/dL eGFR 75 >59 mL/min/1.73 BUN/Creatinine Ratio 11 12-28 Sodium 138 134-144 mmol/L Potassium 4.1 3.5-5.2 mmol/L Chloride 99 96-106 mmol/L Carbon Dioxide, Total 26 20-29 mmol/L Calcium 9.7 8.7-10.3 mg/dL Protein, Total 7.0 6.0-8.5 g/dL Albumin 4.5 3.8-4.8 g/dL Globulin, Total 2.5 1.5-4.5 g/dL Bilirubin, Total 0.6 0.0-1.2 mg/dL Alkaline Phosphatase 125 44-121 IU/L AST (SGOT) 16 0-40 IU/L ALT (SGPT) 9 0-32 IU/L Urinalysis, Zutoljnz-TL-O Reviewed date:03/31/2024 08:45:17 AM Interpretation: Performing Lab:[address] [id number], Phone - [phone], Director - Bree Notes/Report: Specific [place] 1.020 1.005-1.030 pH 7.0 5.0-7.5 Urine-Color Yellow Yellow Appearance Clear Clear WBC Esterase Negative Negative Protein Negative Negative/Trace Glucose Negative Negative Ketones Negative Negative Occult Blood Negative Negative Bilirubin Negative Negative Urobilinogen,Semi-Qn 0.2 0.2-1.0 mg/dL Nitrite, Urine Negative Negative Microscopic Examination Micr oscopic follows if indicated. Microscopic Examination See below: Micr oscopic was indicated and was performed. WBC None seen 0 - 5 /hpf RBC None seen 0 - 2 /hpf Epithelial Cells (non renal) 0-10 0 - 10 /hpf Casts None seen None seen /lpf Bacteria None seen None seen/Few CBC With Differential/Platel et-LC-Q Reviewed date:03/31/2024 08:45:13 AM Interpretation: Performing Lab:[address] [id number], Phone - [phone], Director - Bree Notes/Report: WBC 7.0 3.4-10.8 x10E3/uL RBC 4.55 3.77-5.28 x10E6/uL Hemoglobin 12.2 11.1-15.9 g/dL Hematocrit 39.4 34.0-46.6 % MCV 87 79-97 fL MCH 26.8 26.6-33.0 pg MCHC 31.0 31.5-35.7 g/dL RDW 12.3 11.7-15.4 % Platelets 239 150-450 x10E3/uL Neutrophils 63 Not Estab. % Lymphs 24 Not Estab. % Monocytes 8 Not Estab. % Eos 5 Not Estab. % Basos 0 Not Estab. % Neutrophils (Absolute) 4.4 1.4-7.0 x10E3/uL Lymphs (Absolute) 1.6 0.7-3.1 x10E3/uL Monocytes(Absolute) 0.6 0.1-0.9 x10E3/uL Eos (Absolute) 0.3 0.0-0.4 x10E3/uL Baso (Absolute) 0.0 0.0-0.2 x10E3/uL Immature Granulocytes 0 Not Estab. % Immature Grans (Abs) 0.0 0.0-0.1 x10E3/uL Microalbumin/Creatinine Rati o, Random Urine-LC Reviewed date:03/31/2024 08:45:06 AM Interpretation: Performing Lab:[facility] [address] [id number], Phone - [phone], Director - Bree Notes/Report: Creatinine, Urine 122.7 Not Estab. mg/dL Albumin, Urine 12.5 Not Estab. ug/mL Alb/Creat Ratio 10 0-29 mg/g creat Normal: 0 - 29 Moderately increased: 30 - 300 Severely increased: >300 Occult Blood, Fecal, IA-LAB BRENNON Reviewed date:03/31/2024 08:45:03 AM Interpretation: Performing Lab:[facility] [address] [id number], Phone - [phone], Director - Bree Notes/Report: Occult Blood, Fecal, IA Negative Negative Lipid Panel With LDL/HDL Rat io-LC Reviewed date:04/26/2024 08:51:11 AM Interpretation: Performing Lab:[facility] [address] [id number], Phone - [phone], Director - Bree Notes/Report: Cholesterol, Total 232 100-199 mg/dL Triglycerides 76 0-149 mg/dL HDL Cholesterol 71 >39 mg/dL VLDL Cholesterol Koby 13 5-40 mg/dL LDL Chol Calc ([facility]) 148 0-99 mg/dL LDL/HDL Ratio 2.1 0.0-3.2 ratio LDL/HDL Ratio Men Women 1/2 Avg.Risk 1.0 1.5 Avg.Risk 3.6 3.2 2X Avg.Risk 6.2 5.0 3X Avg.Risk 8.0 6.1 Comprehensive Metabolic Pane l 14+eGFR-LC-Q Reviewed date:04/26/2024 08:51:11 AM Interpretation: Performing Lab:[address] [id number], Phone - [phone], [facility]/Report: Glucose 94 70-99 mg/dL BUN 14 8-27 mg/dL Creatinine 0.83 0.57-1.00 mg/dL eGFR 75 >59 mL/min/1.73 BUN/Creatinine Ratio 17 12-28 Sodium 140 134-144 mmol/L Potassium 4.6 3.5-5.2 mmol/L Chloride 105 96-106 mmol/L Carbon Dioxide, Total 24 20-29 mmol/L Calcium 9.7 8.7-10.3 mg/dL Protein, Total 6.9 6.0-8.5 g/dL Albumin 4.6 3.8-4.8 g/dL Globulin, Total 2.3 1.5-4.5 g/dL Bilirubin, Total 0.4 0.0-1.2 mg/dL Alkaline Phosphatase 123 44-121 IU/L AST (SGOT) 15 0-40 IU/L ALT (SGPT) 10 0-32 IU/L Urinalysis, Vhxnmwpe-GG-I Reviewed date:04/26/2024 08:51:11 AM Interpretation: Performing Lab:[address] [id number], Phone - [phone], [facility] Notes/Report: Specific [place] 1.016 1.005-1.030 pH 7.0 5.0-7.5 Urine-Color Yellow Yellow Appearance Cloudy Clear WBC Esterase Negative Negative Protein Negative Negative/Trace Glucose Negative Negative Ketones Negative Negative Occult Blood Negative Negative Bilirubin Negative Negative Urobilinogen,Semi-Qn 0.2 0.2-1.0 mg/dL Nitrite, Urine Negative Negative Microscopic Examination Micr oscopic follows if indicated. Microscopic Examination See below: Micr oscopic was indicated and was performed. WBC None seen 0 - 5 /hpf RBC 0-2 0 - 2 /hpf Epithelial Cells (non renal) None seen 0 - 10 /hpf Casts None seen None seen /lpf Bacteria None seen None seen/Few CBC With Differential/Platel et-LC-Q Reviewed date:04/26/2024 08:51:11 AM Interpretation: Performing Lab:[facility] [address] [place], [place] [id number], Phone - [phone], Director - Bree Notes/Report: WBC 5.5 3.4-10.8 x10E3/uL RBC 4.59 3.77-5.28 x10E6/uL Hemoglobin 13.1 11.1-15.9 g/dL Hematocrit 39.9 34.0-46.6 % MCV 87 79-97 fL MCH 28.5 26.6-33.0 pg MCHC 32.8 31.5-35.7 g/dL RDW 13.0 11.7-15.4 % Platelets 243 150-450 x10E3/uL Neutrophils 37 Not Estab. % Lymphs 50 Not Estab. % Monocytes 7 Not Estab. % Eos 6 Not Estab. % Basos 0 Not Estab. % Neutrophils (Absolute) 2.0 1.4-7.0 x10E3/uL Lymphs (Absolute) 2.7 0.7-3.1 x10E3/uL Monocytes(Absolute) 0.4 0.1-0.9 x10E3/uL Eos (Absolute) 0.3 0.0-0.4 x10E3/uL Baso (Absolute) 0.0 0.0-0.2 x10E3/uL Immature Granulocytes 0 Not Estab. % Immature Grans (Abs) 0.0 0.0-0.1 x10E3/uL TSH reflex to T4 Reviewed date:03/31/2024 08:44:59 AM Interpretation: Performing [facility] [place] [place] [id number], Phone - [phone], Director - Bree Notes/Report: TSH 1.770 0.450-4.500 uIU/mL Reason For Referral Reason If additional kathy ting is needed, please refer back to PCP. Please fax consult notes and/or results of procedure approved to [phone]. Thanks! ~Annual Eye Exam~ Diagnosis 1 Encounter for examin ation of eyes and vision without abnormal findings (Z01.00) [facility] Referring Provider First Name Macario Referring Provider Last Name Tyler Referring Provider Speciality General Pr actice Referred Provider [employer] [employer] Referred Provider Specialty [employer] Manager Referral Priority Routine Reason Please fax consul t notes and/or results of procedure approved to [phone]. Thanks! CONSULT ONLY - MANAGED CARE ~Annual Eye Exam~ Diagnosis 1 Encounter for examin ation of eyes and vision without abnormal findings (Z01.00) Referral [facility] Referring Provider First Name Macario Referring Provider Last Name Tyler Referring Provider Speciality General Pr actice Referred Provider [employer] [employer] Referred Provider Specialty [employer] Manager Referral Priority Routine Medications Medication SIG (Take, Route, Frequency, Duration) Notes Start Date End Date Status Rizatriptan Benzoate 10 MG 1 tablet Oral ly Once a day Active Cyclobenzaprine HCl 5 MG 1 tablet at bed time as needed Orally Once a day Active Topiramate 100 MG 1 tablet Orally Once a day 03/24/2024 Active Levothyroxine Sodium 112 MCG 1 tablet in the morning on an empty stomach Orally Once a day Active Rosuvastatin Calcium 10 MG 1 tablet Oral ly Once a day 03/24/2024 Active Meclizine HCl 12.5 MG 1 tablet as needed Orally every 12 hrs Active Albuterol Sulfate 108 (90 Base) MCG/ACT 1 puff as needed Inhalation every 4 hrs Active Multivitamin - 1 tablet Orally Once a day Active Atenolol 50 MG 1 tablet Orally Once a day 03/24/2024 Active traZODone HCl 150 MG 1 tablet at bedtime Orally Once a day Active hydrOXYzine HCl 25 MG/ML as directed Intramuscular Active Social History Tobacco Use: Social History Observation Description Date Details (start date - stop date) Former Smoker NA - NA Sex Assigned At : Social History Observation Description Sex Assigned At Female Sexual History Question Answer Notes Had sex in the past 12 months (vaginal, oral, or anal)? Yes with Men only Use protection? No Prevention strategies discussed: Other Have you ever had a Sexually transmitted disease ? No Tobacco Control (Standard) Question Answer Notes Tobacco use: Former smoker How long has it been since y ou last smoked? Greater than 10 years Additional Findings: Tobacco user Modera te cigarette smoker (10-19 cigs/day) Additional Findings: Tobacco non-user Current no nsmoker AUDIT-C (Standard) Question Answer Notes Did you have a drink containing alcohol in the p ast year? No Points 0 Interpretation Negative Problems Problem Type SNOMED Code ICD Code Onset Dates Problem Status W/U Status Risk Notes Problem 499050492 Mixed hyperlipidemia (E78.2) Active confirmed Problem 755399973797960 Hypertensive chronic kidney disease with stage 1 through stage 4 chronic kidney disease, or unspecified chronic kidney disease (I12.9) Active confirmed Problem 881392840 Fibromyalgia (M79.7) Active confirmed Problem 383970382 Chronic insomnia (F51.04) Active confirmed Problem 950416197 Vertigo (R42) Active confirmed Problem 536238069 Acquired hypothyroidism (E03.9) Active confirmed Problem 31286720 Migraine syndrom e (G43.909) Active confirmed Problem 671437164 CKD (chronic kidney disease), stage II (N18.2) Active confirmed GFR 75 as per lab results from Problem 9040748 Former smoker (Z87.891) Active confirmed Problem 54219068 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) Active confirmed Problem 984749933 Severe persisten t asthma without complication (J45.50) Active confirmed Vital Signs Temperature 97 degrees Fahrenheit 05/02/2024 Respiratory Rate 19 /min 05/02/2024 Blood pressure diastolic 82 mm Hg 05/02/2024 Oximetry 99 % 05/02/2024 Height 5ft2in in 05/02/2024 Blood pressure systolic 139 mm Hg 05/02/2024 Weight 140 lbs 05/02/2024 BMI 25.6 kg/m2 05/02/2024 Procedures Procedure Date Ordered Date Performed Result Body Sit e SPIROMETRY 03/24/2024 03/31/2024 N/A SPIROMETRY 05/02/2024 N/A Encounters Encounter Location Date Provider Diagnosis [facility] [address] [address] 03/24/2024 [facility] [address] [facility] [address] [facility] [place] [address] 03/24/2024 [facility] [address] [facility] [address] [place] [address] 03/31/2024 Macario Scott [facility] [address] [address] 04/24/2024 Macario Scott Essential (primary) hypertension I10 ; Mixed hyperlipidemia E78.2 and Acquired hypothyroidism E03.9 [facility] [address] [address] 03/24/2024 Macario Scott Essential (primary) hypertension I10 ; Migraine syndrome G43.909 ; Mixed hyperlipidemia E78.2 ; Severe persistent asthma without complication J45.50 ; Fibromyalgia M79.7 ; Acquired hypothyroidism E03.9 ; Moderate recurrent major depression F33.1 ; Chronic insomnia F51.04 ; Vertigo R42 ; Overweight (BMI 25.0-29.9) E66.3 ; Former smoker Z87.891 ; Body mass index (BMI) of 26.0 to 26.9 in adult Z68.26 ; Encounter for fecal immunochemical test screening Z12.11 ; Screening for osteoporosis Z13.820 ; Encounter for screening mammogram for breast cancer Z12.31 and Encounter for examination of eyes and vision without abnormal findings Z01.[address] [address] 03/31/2024 Macario Scott Hypertensive chronic kidney disease with stage 1 through stage 4 chronic kidney disease, or unspecified chronic kidney disease I12.9 ; CKD (chronic kidney disease), stage II N18.2 ; Moderate recurrent major depression F33.1 ; Severe persistent asthma without complication J45.50 ; Mixed hyperlipidemia E78.2 ; Migraine syndrome G43.909 ; Overweight (BMI 25.0-29.9) E66.3 ; Former smoker Z87.891 and Body mass index (BMI) of 25.0 to 25.9 in adult Z68.25 [facility] [address] [address] 05/02/2024 Macario Scott Severe persistent asthma without complication J45.50 ; Moderate recurrent major depression F33.1 ; Hypertensive chronic kidney disease with stage 1 through stage 4 chronic kidney disease, or unspecified chronic kidney disease I12.9 ; CKD (chronic kidney disease), stage II N18.2 ; Mixed hyperlipidemia E78.2 ; Migraine syndrome G43.909 ; Acquired hypothyroidism E03.9 ; Vertigo R42 ; Overweight (BMI 25.0-29.9) E66.3 ; Former smoker Z87.891 ; Body mass index (BMI) of 25.0 to 25.9 in adult Z68.25 ; Encounter for examination of eyes and vision without abnormal findings Z01.00 ; Encounter for screening mammogram for breast cancer Z12.31 ; Encounter for fecal immunochemical test screening Z12.11 and Screening for osteoporosis Z13.820 Assessments Encounter Date Diagnosis (ICD Code) Assessment Notes Treatment Notes Treatment Clinical Notes Section Notes 03/24/2024 Essential (primary) hypertension (ICD-10 - I10) Blood pressure control and daily exercise as tolerated is recommended. Will continue to monitor. 03/24/2024 Migraine syndrome (ICD-10 - G43.909) 03/31/2024 Hypertensive chronic kidney disease with stage 1 through stage 4 chronic kidney disease, or unspecified chronic kidney disease (ICD-10 - I12.9) Chronic kidney disease (CKD) Stage II due to hypertension (HTN). Blood pressure control and daily exercise as tolerated is recommended. Will continue to monitor. 03/31/2024 CKD (chronic kidney disease), stage II (ICD-10 - N18.2) GFR 75 as per lab results from 03/25/2024 GFR 75 as per lab results from 03/25/2024 04/24/2024 Essential (primary) hypertension (ICD-10 - I10) 05/02/2024 Moderate recurrent major depression (ICD-10 - F33.1) Recommended to patient avoid stressful situations. Will continue to monitor. 05/02/2024 Severe persistent asthma without complication (ICD-10 - J45.50) 03/31/2024 Moderate recurrent major depression (ICD-10 - F33.1) Recommended to patient avoid stressful situations. Will continue to monitor. 05/02/2024 Hypertensive chronic kidney disease with stage 1 through stage 4 chronic kidney disease, or unspecified chronic kidney disease (ICD-10 - I12.9) CKD Stage II due to HTN. Blood pressure control and daily exercise as tolerated is recommended. Will continue to monitor. 04/24/2024 Mixed hyperlipidemia (ICD-10 - E78.2) 03/24/2024 Mixed hyperlipidemia (ICD-10 - E78.2) 03/24/2024 Severe persistent asthma without complication (ICD-10 - J45.50) 03/31/2024 Severe persistent asthma without complication (ICD-10 - J45.50) 04/24/2024 Acquired hypothyroidism (ICD-10 - E03.9) 05/02/2024 CKD (chronic kidney disease), stage II (ICD-10 - N18.2) GFR 75 as per lab results from 04/26/2024 GFR 75 as per lab results from 03/25/2024 05/02/2024 Mixed hyperlipidemia (ICD-10 - E78.2) 03/31/2024 Mixed hyperlipidemia (ICD-10 - E78.2) 03/24/2024 Fibromyalgia (ICD-10 - M79.7) Oriented patient to take Ibuprofen over the counter for pain as needed, will continue to monitor. 03/24/2024 Acquired hypothyroidism (ICD-10 - E03.9) 03/31/2024 Migraine syndrome (ICD-10 - G43.909) 05/02/2024 Migraine syndrome (ICD-10 - G43.909) 03/24/2024 Moderate recurrent major depression (ICD-10 - F33.1) Recommended to patient avoid stressful situations. Will continue to monitor. 05/02/2024 Acquired hypothyroidism (ICD-10 - E03.9) 03/31/2024 Overweight (BMI 25.0-29.9) (ICD-10 - E66.3) Avoid overeating, eating too quickly, eating high-fat foods, eating during stressful situations, or drinking too much alcohol or coffee. Counseled patient on adequate diet and exercise as tolerant. 03/24/2024 Chronic insomnia (ICD-10 - F51.04) Continue treatment of Trazadone. 05/02/2024 Vertigo (ICD-10 - R42) 03/31/2024 Former smoker (ICD-10 - Z87.891) Patient quit smoking 03/31/2024 Body mass index (BMI) of 25.0 to 25.9 in adult (ICD-10 - Z68.25) 05/02/2024 Overweight (BMI 25.0-29.9) (ICD-10 - E66.3) Avoid overeating, eating too quickly, eating high-fat foods, eating during stressful situations, or drinking too much alcohol or coffee. Counseled patient on adequate diet and exercise. 03/24/2024 Vertigo (ICD-10 - R42) 03/24/2024 Overweight (BMI 25.0-29.9) (ICD-10 - E66.3) Avoid overeating, eating too quickly, eating high-fat foods, eating during stressful situations, or drinking too much alcohol or coffee. Counseled patient on adequate diet and exercise. 05/02/2024 Former smoker (ICD-10 - Z87.891) Patient quit smoking 05/02/2024 Body mass index (BMI) of 25.0 to 25.9 in adult (ICD-10 - Z68.25) 03/24/2024 Former smoker (ICD-10 - Z87.891) Patient quit smoking 03/24/2024 Body mass index (BMI) of 26.0 to 26.9 in adult (ICD-10 - Z68.26) 05/02/2024 Encounter for examination of eyes and vision without abnormal findings (ICD-10 - Z01.00) 05/02/2024 Encounter for screening mammogram for breast cancer (ICD-10 - Z12.31) 03/24/2024 Encounter for fecal immunochemical test screening (ICD-10 - Z12.11) 03/24/2024 Screening for osteoporosis (ICD-10 - Z13.820) 05/02/2024 Encounter for fecal immunochemical test screening (ICD-10 - Z12.11) 05/02/2024 Screening for osteoporosis (ICD-10 - Z13.820) 03/24/2024 Encounter for screening mammogram for breast cancer (ICD-10 - Z12.31) 03/24/2024 Encounter for examination of eyes and vision without abnormal findings (ICD-10 - Z01.00) 03/24/2024 Other 05/02/2024 Other Plan Of Treatment Pending Test Test Name Order Date DEXA Hip and Spine 03/24/2024 DEXA Hip and Spine 05/02/2024 EKG Electrocardiogram 05/02/2024 SPIROMETRY 05/02/2024 Lipid Panel-Q-LC 05/02/2024 Comprehensive Metabolic Panel 14+eGFR-LC -Q 05/02/2024 Urinalysis, Tlzdqtpz-RQ-H 05/02/2024 CBC With Differential/Wunmkfbm-TJ-T 04/13 Mammo SCREENING MAMMO DIGITAL, SOHEILA 05/02 Mammo SCREENING MAMMO DIGITAL, SOHEILA 03/24 CHEST X-RAY (PA/LATERAL) 05/02/2024 CHEST X-RAY (PA/LATERAL) 03/24/2024 Insurance Providers Payer Name Payer Address Payer Phone Subscriber Number Group Number Insured Name Patient Relationship to Insured Coverage Start Date Coverage End Date [facility] [address] [address] [place] [address] [id number] [place] Self - patient is the insured Medical (General) History Medical History History ICD Code hyperension asthma sinusitis migraines thyroid Surgical History Surgery Date(Month/Year) hystrectomy total 1996 1970,1971 right leg n/a nose n/a carpal tunel on both hands n/a
--- OUTSIDE RECORDS SUMMARY | 2024-08-14 15:12 | XMS_ITS | Encounter Summary ---
Author Organization [facility] Address [address] [place] [address] Care Team Providers Care Traffic Engineering Director Name Role Phone Yue Moreira MD Primary Care Provider Un available Delmis Torres MD Unavailable Unavailable Yue Moreira MD Unavailable Unavaila Emily Foy MD Primary Care Provider Unavail able On License Of [facility], Pcp Primary Care Provider UnavailAddi Ball NP Primary Care Provider Unavail able Liza Hernandez MD Unavailable [phone] Benita Quinn PA-C Unavailable [phone] Reason for Visit * Reason Onset Date Comments radiology 01/18/2019 Encounter Details Date Type Department Care Team Description 01/18/2019 Telephone Gastroenterology - [place] 175 [facility] [address] [place] [id number] Kim Simmons DScPAS radiology Social History Tobacco Use Types Packs/Day Years Used Date Smoking Tobacco: Former Smokeless Tobacco: Never Alcohol Use Standard Drinks/Week Comments No 0 (1 standard drink = 0.6 oz pur e alcohol) Sex Assigned at Date Recorded Not on file documented as of this encounter Miscellaneous Notes * Telephone Encounter - Harry Beckwith M.A. - 01/18/2019 2:27 PM EDT Ok no problem, send it back once its done, thanks artem :) * Telephone Encounter - Kim Simmons PA-C - 01/18/2019 11:37 AM EDT [facility] does not have that so I will change pre existing order. * Telephone Encounter - Harry Beckwith M.A. - 01/18/2019 11:11 AM EDT Patient needs it to say head/neck soft tissues u/s ( add thyroid) * Telephone Encounter - Dionna Mckenzie - 01/18/2019 11:04 AM EDT Caller requesting call back from provider: Is the caller the patient? NO If caller is not the patient, what is the callers name? Sonja Callers relationship to patient? [facility] [place] If person calling is not the patient themselves, is there a verbal release in FYI or permanent comments for this person: NO Reason for call back: US SOFT TISSUE HEAD/NECK [[id number]] ? (Order #: [id number]) Needs order to saythyroid Caller offered to speak with the nurse for assistance: YES Response: Patient is at xray right now and it needs to be sent Downstairs so they can do the test documented in this encounter Plan of Treatment Not on file documented as of this encounter Visit Diagnoses Not on filedocumented in this encounter Care Teams Traffic Engineering Director Relationship Specialty Start Date End Date Yue Moreira MD PCP - General Internal Medicine 06/06/1802/07 Emily Burrell MD PCP - General Internal Medicine 02/08/19 04/24/21 On License Of [facility], Pcp PCP - General Internal Medicine 04/25/21 09/02/21 Addi Holland NP PCP - General Family Practice 09/03/21 Delmis Torres MD Internal Medicine 06/06/18 Yue Moreira MD Internal Medicine 06/06/18 Liza Hernandez MD 175 [facility] [address] [place] [address] Surgeon Neurosurgery 09/09/21 Benita Quinn PA-C [address] [address] Specialist Neurosurgery 09/09/21 documented as of this encounter
--- OUTSIDE RECORDS SUMMARY | 2024-08-14 15:12 | XMS_ITS | Encounter Summary ---
Author Organization [facility] Address [address] [place] [address] Care Team Providers Care Siding Installer Name Role Phone Delmis Torres MD Unavailable Unavailable Yue Moreira MD Unavailable Unavaila Emily Foy MD Primary Care Provider Unavail able [facility], Pcp Primary Care Provider UnavailAddi Ball NP Primary Care Provider Unavail able Liza Hernandez MD Unavailable [phone] Benita Quinn PA-C Unavailable [phone] Reason for Visit * Reason Onset Date Comments Faxed Order 02/08/2019 Encounter Details Date Type Department Care Team Description 02/08/2019 Telephone Adult Medicine [address] [address] Emily Burrell MD Faxed Order Social History Tobacco Use Types Packs/Day Years Used Date Smoking Tobacco: Former Smokeless Tobacco: Never Alcohol Use Standard Drinks/Week Comments No 0 (1 standard drink = 0.6 oz pur e alcohol) Sex Assigned at Date Recorded Not on file documented as of this encounter Miscellaneous Notes * Telephone Encounter - Amee Beal - 02/08/2019 2:40 PM EDT Faxed orders received from [facility]. Please review, sign, date, and fax back to [phone]. documented in this encounter Plan of Treatment Not on file documented as of this encounter Visit Diagnoses Not on filedocumented in this encounter Care Teams Siding Installer Relationship Specialty Start Date End Date Emily Burrell MD PCP - General Internal Medicine 02/08/19 04/24/21 [facility], Pcp PCP - General Internal Medicine 04/25/21 09/02/21 Addi Holland NP PCP - General Family Practice 09/03/21 Delmis Torres MD Internal Medicine 06/06/18 Yue Moreira MD Internal Medicine 06/06/18 Liza Hernandez MD [address] [id number] Surgeon Neurosurgery 09/09/21 Benita Quinn PA-C [address] [id number] Specialist Neurosurgery 09/09/21 documented as of this encounter
--- OUTSIDE RECORDS SUMMARY | 2024-08-14 15:12 | XMS_ITS | Encounter Summary ---
Author Organization [facility] Address [address] [place] [address] Care Team Providers Care Application Support Developer Name Role Phone Yue Moreira MD Primary Care Provider Un available Delmis Torres MD Unavailable Unavailable Yue Moreira MD Unavailable Unavaila ble Emily Burrell MD Primary Care Provider Unavail able [facility], Pcp Primary Care Provider UnavailAddi Ball NP Primary Care Provider Unavail able Liza Hernandez MD Unavailable [phone] Benita Quinn PA-C Unavailable [phone] Encounter Details Date Type Department Care Team Description 01/11/2019 [facility] Medical Records [address] [place] [address] Shaan Segal MD Social History Tobacco Use Types Packs/Day Years Used Date Smoking Tobacco: Former Smokeless Tobacco: Never Alcohol Use Standard Drinks/Week Comments No 0 (1 standard drink = 0.6 oz pur e alcohol) Sex Assigned at Date Recorded Not on file documented as of this encounter Plan of Treatment Not on file documented as of this encounter Visit Diagnoses Not on filedocumented in this encounter Care Teams Application Support Developer Relationship Specialty Start Date End Date Yue Moreira MD PCP - General Internal Medicine 06/06/1802/07 Emily Burrell MD PCP - General Internal Medicine 02/08/19 04/24/21 [facility], Pcp PCP - General Internal Medicine 04/25/21 09/02/21 Addi Holland NP PCP - General Family Practice 09/03/21 Delmis Torres MD Internal Medicine 06/06/18 Yue Moreira MD Internal Medicine 06/06/18 Liza Hernandez MD 175 [facility] [address] [place] [address] Surgeon Neurosurgery 09/09/21 Benita Quinn PA-C [address] [address] Specialist Neurosurgery 09/09/21 documented as of this encounter
--- OUTSIDE RECORDS SUMMARY | 2024-08-14 15:12 | XMS_ITS ---
Author Organization [facility] Address [address] [place] [address] Care Team Providers Care Lather Apprentice Name Role Phone AUTUMN PADILLA Primary Care Provider REASON FOR VISIT follow up labs Encounters Encounter Location Date Provider Diagnosis [facility] [address] [place] [address] 04/04/2024 AUTUMN BEASLEY Plan Of Treatment No Information Progress Notes * Marie BRASWELLDO B:1950 (73 yo F)Acc No.[id number]:04/04/2024 Patient:?Patricia BRASWELL Provider:?AUTUMN BEASLEY MD :1950???Age:73 Y???Sex:Female D ate:04/04/2024 Phone: Address:[address] [place], [place] [phone] Structured Data:Consent to r eceive voicemail/text messages? : YES Subjective: * Chief Complaints: * ???1. Follow up labs. * Medical History:? Objective: * Vitals:? Assessment: Plan: * Treatment: * Billing Information: * Visit Code:? * Procedure Codes:? * Electronic signature of AUTUMN BEASLEY MD on 08/14/2024 at 03:12 PM EDT Sign off status: Pending * Provider:?AUTUMN BEASLEY MD Da te:?04/04/2024 Generated for Printi ng/Faxing/eTransmitting on:?08/14/2024 03:12 PM EDT
--- OUTSIDE RECORDS SUMMARY | 2024-08-14 15:13 | XMS_ITS ---
Author Organization [employer] Address [address] [place] [address] Care Team Providers Care Hosiery Operator Name Role Phone Macario Scott Primary Care Provider REASON FOR VISIT SPIROMETRY Social History Sex Assigned At : Social History Observation Description Sex Assigned At Female Encounters Encounter Location Date Provider Diagnosis [facility] [address] [address] 06/16/2024 Macario Scott Plan Of Treatment No Information Progress Notes * EDUARDO ABREUDOB:[birth year] (73 yo F)Acc No.[id number]:06/16/2024 Progress Note Patient:?EDUARDO ABREU Provider:?Macario Scott MD :1950???Age:73 Y???Sex:Female D ate:06/16/2024 Address:[address] [place] [address] Subjective: * Chief Complaints: * ???1. SPIROMETRY. * Medical History:? Objective: * Vitals:? Assessment: Plan: * Treatment: * Images: * Electronic signature of Anoop Scott MD on 08/14/2024 at 03:13 PM EDT Sign off status: Pending * Provider:?Macario Scott MD Date:?10/2024 Generated for Tom kenny/Dania/eTransmitting on:?08/14/2024 03:13 PM EDT
--- OUTSIDE RECORDS SUMMARY | 2024-08-14 15:13 | XMS_ITS | Encounter Summary ---
Author Organization [employer] [facility] Address [address] [place] [address] Care Team Providers Care Cone Baker Machine Name Role Phone Delmis Torres MD Unavailable Unavailable Yue Moreira MD Unavailable Unavaila Emily Foy MD Primary Care Provider Unavail able [facility], Pcp Primary Care Provider UnavailAddi Ball NP Primary Care Provider Unavail able Liza Hernandez MD Unavailable [phone] Benita Quinn PA-C Unavailable [phone] Encounter Details Date Type Department Care Team Description 03/20/2021 Orders Only Medical Records [address] [place] [address] Benita Quinn PA-C 175 [facility] [address] [place] [address] Social History Tobacco Use Types Packs/Day Years Used Date Smoking Tobacco: Former Smokeless Tobacco: Never Alcohol Use Standard Drinks/Week Comments No 0 (1 standard drink = 0.6 oz pur e alcohol) Sex Assigned at Date Recorded Not on file documented as of this encounter Plan of Treatment Not on file documented as of this encounter Procedures Procedure Name Priority Date/Time Associated Diagnosis Comments OUTSIDE MRI/MRA Routine 03/20/2021 documented in this encounter Results * OUTSIDE MRI/MRA (03/20/2021) Benita Quinn PA-C RADIOLOGY documented in this encounter Visit Diagnoses Not on filedocumented in this encounter Care Teams Cone Baker Machine Relationship Specialty Start Date End Date Emily Burrell MD PCP - General Internal Medicine 02/08/19 04/24/21 [facility], Pcp PCP - General Internal Medicine 04/25/21 09/02/21 Addi Holland NP PCP - General Family Practice 09/03/21 Delmis Torres MD Internal Medicine 06/06/18 Yue Moreira MD Internal Medicine 06/06/18 Liza Hernandez MD 175 [facility] [address] [place] [address] Surgeon Neurosurgery 09/09/21 Benita Quinn PA-C 175 [facility] [address] [place] [address] Specialist Neurosurgery 09/09/21 documented as of this encounter
--- OUTSIDE RECORDS SUMMARY | 2024-08-14 15:13 | XMS_ITS | Encounter Summary ---
Author Organization [facility] Address [address] [place] [address] Care Team Providers Care Binder Caser Name Role Phone Yue Moreira MD Primary Care Provider Un available Delmis Torres MD Unavailable Unavailable Yue Moreira MD Unavailable Unavaila Emily Foy MD Primary Care Provider Unavail able [facility], Pcp Primary Care Provider UnavailAddi Ball NP Primary Care Provider Unavail able iLza Hernandez MD Unavailable [phone] Benita Quinn PA-C Unavailable [phone] Reason for Visit * Reason Comments E-prescribe Rx Request Encounter Details Date Type Department Care Team Description 07/06/2018 Refill Internal Medicine - [place] 175 [facility], [address] [place] [address] Delmis Torres MD E-prescribe Rx Request Social History Tobacco Use Types Packs/Day Years Used Date Smoking Tobacco: Former Smokeless Tobacco: Never Alcohol Use Standard Drinks/Week Comments No 0 (1 standard drink = 0.6 oz pur e alcohol) Sex Assigned at Date Recorded Not on file documented as of this encounter Miscellaneous Notes * Telephone Encounter - Maria Elena Ortega M.A. - 07/06/2018 11:55 AM EDT Last appt 06/02/2018 No next appt documented in this encounter Plan of Treatment Not on file documented as of this encounter Visit Diagnoses Not on filedocumented in this encounter Care Teams Binder Caser Relationship Specialty Start Date End Date Yue Moreira MD PCP - General Internal Medicine 06/06/1802/07 Emily Burrell MD PCP - General Internal Medicine 02/08/19 04/24/21 [facility], Pcp PCP - General Internal Medicine 04/25/21 09/02/21 Addi Holland NP PCP - General Family Practice 09/03/21 Delmis Torres MD Internal Medicine 06/06/18 Yue Moreira MD Internal Medicine 06/06/18 Liza Hernandez MD 175 [facility] [address] [place], [place] [phone] Surgeon Neurosurgery 09/09/21 Benita Quinn PA-C 175 [facility] [address] [place] [address] Specialist Neurosurgery 09/09/21 documented as of this encounter
--- OUTSIDE RECORDS SUMMARY | 2024-08-14 15:13 | XMS_ITS ---
Author Organization [facility] Address [address] [place] [id number] Care Team Providers Care Clinical Rehabilitation Aide Name Role Phone Tyler Macario Primary Care Provider Allergies Allergen (clinical drug ingredient) Drug/Non Drug Allergy documented on EMR Reaction Allergy Type Onset Date Status tramadol Tramadol rash Drug Allergy Active Results Component Value Reference Range Notes Occult Blood, Fecal, IA-LAB BRENNON Reviewed date:05/04/2024 04:08:08 PM Interpretation: Performing Lab:[facility] [address] [id number], Phone - [phone], Director - Bree Notes/Report: Occult Blood, Fecal, IA Negative Negative Reason For Referral Reason Please fax consul t notes and/or results of procedure approved to [phone]. Thanks! CONSULT ONLY - MANAGED CARE ~Annual Eye Exam~ Diagnosis 1 Encounter for examin ation of eyes and vision without abnormal findings (Z01.00) Referral Organization [facility] Referring Provider First Name Macario Referring Provider Last Name Tyler Referring Provider Speciality General Pr actice Referred Provider [facility] Referred Provider Specialty Sas Developer Referral Priority Routine REASON FOR VISIT Established patient is here today for lab results Medications Medication SIG (Take, Route, Frequency, Duration) Notes Start Date End Date Status Levothyroxine Sodium 112 MCG 1 tablet in the morning on an empty stomach Orally Once a day Active Rosuvastatin Calcium 10 MG 1 tablet Oral ly Once a day 03/24/2024 Active Albuterol Sulfate 108 (90 Base) MCG/ACT 1 puff as needed Inhalation every 4 hrs Active traZODone HCl 150 MG 1 tablet at bedtime Orally Once a day Active hydrOXYzine HCl 25 MG/ML as directed Intramuscular Active Rizatriptan Benzoate 10 MG 1 tablet Oral ly Once a day Active Cyclobenzaprine HCl 5 MG 1 tablet at bed time as needed Orally Once a day Active Meclizine HCl 12.5 MG 1 tablet as needed Orally every 12 hrs Active Multivitamin - 1 tablet Orally Once a day Active Atenolol 50 MG 1 tablet Orally Once a day 03/24/2024 Active Topiramate 100 MG 1 tablet Orally Once a day 03/24/2024 Active Social History Tobacco Use: Social History [...] ast year? No Points 0 Interpretation Negative Vital Signs Temperature 97 degrees Fahrenheit 05/02/2024 Blood pressure systolic 139 mm Hg 05/02/19 25 Blood pressure diastolic 82 mm Hg 025 Respiratory Rate 19 /min 05/02/2024 Height 5ft2in in 05/02/2024 Weight 140 lbs 05/02/2024 BMI 25.6 kg/m2 05/02/2024 Oximetry 99 % 05/02/2024 Procedures Procedure Date Ordered Date Performed Result Body Sit e SPIROMETRY 05/02/2024 N/A Encounters Encounter Location Date Provider Diagnosis [address] [id number] 05/02/2024 Macario Scott Severe persistent asthma without [...] Treatment Notes Treatment Clinical Notes Section Notes 05/02/2024 Severe persistent asthma without complication (ICD-10 - J45.50) 05/02/2024 Moderate recurrent major depression (ICD-10 - F33.1) Recommended to patient avoid stressful situations. Will continue to monitor. 05/02/2024 Hypertensive chronic kidney disease with stage 1 through stage 4 chronic kidney disease, or unspecified chronic kidney disease (ICD-10 - I12.9) CKD Stage II due to HTN. Blood pressure control and daily exercise as tolerated is recommended. Will continue to monitor. 05/02/2024 CKD (chronic kidney disease), stage II (ICD-10 - N18.2) GFR 75 as per lab results from 04/26/2024 GFR 75 as per lab results from 03/25/2024 05/02/2024 Mixed hyperlipidemia (ICD-10 - E78.2) 05/02/2024 Migraine syndrome (ICD-10 - G43.909) 05/02/2024 Acquired hypothyroidism (ICD-10 - E03.9) 05/02/2024 Vertigo (ICD-10 - R42) 05/02/2024 Overweight (BMI 25.0-29.9) (ICD-10 - E66.3) Avoid overeating, eating too quickly, eating high-fat foods, eating during stressful situations, or drinking too much alcohol or coffee. Counseled patient on adequate diet and exercise. 05/02/2024 Former smoker (ICD-10 - Z87.891) Patient quit smoking 05/02/2024 Body mass index (BMI) of 25.0 to 25.9 in adult (ICD-10 - Z68.25) 05/02/2024 Encounter for examination of eyes and vision without abnormal findings (ICD-10 - Z01.00) 05/02/2024 Encounter for screening mammogram for breast cancer (ICD-10 - Z12.31) 05/02/2024 Encounter for fecal immunochemical test screening (ICD-10 - Z12.11) 05/02/2024 Screening for osteoporosis (ICD-10 - Z13.820) 05/02/2024 Other Plan Of Treatment Medication Medication Name Sig Start Date Stop Date Notes Levothyroxine Sodium 112 MCG 1 tablet in the morning on an empty stomach Orally Once a day Rosuvastatin Calcium 10 MG 1 tablet Orally Once a day 03/12 Albuterol Sulfate 108 (90 Ba se) MCG/ACT 1 puff as needed Inhalation every 4 hrs traZODone HCl 150 MG 1 tablet at bedtime Orally Once a day Meclizine HCl 12.5 MG 1 tablet as needed Orally every 12 hrs Atenolol 50 MG 1 tablet Orally Once a day 03/24/2024 Topiramate 100 MG 1 tablet Orally Once a day 03/24/2024 Treatment Notes Assessment Notes Moderate recurrent major depression Sebastien mmended to patient avoid stressful situations. Will continue to monitor. Hypertensive chronic kidney disease with stage 1 through stage 4 chronic kidney disease, or unspecified chronic kidney disease CKD Stage II due to HTN. Blood pressure control and daily exercise as tolerated is recommended. Will continue to monitor. CKD (chronic kidney disease), stage II G FR 75 as per lab results from 03/25/2024 Overweight (BMI 25.0-29.9) Avoid overeat ing, eating too quickly, eating high-fat foods, eating during stressful situations, or drinking too much alcohol or coffee. Counseled patient on adequate diet and exercise. Former smoker Patient quit smoking Pending Test Test Name Order Date DEXA Hip and Spine 05/02/2024 EKG Electrocardiogram 05/02/2024 SPIROMETRY 05/02/2024 Lipid Panel-Q-LC 05/02/2024 Comprehensive Metabolic Panel 14+eGFR-LC -Q 05/02/2024 Urinalysis, Bbdbhnvu-OE-Y 05/02/2024 CBC With Differential/Tkkjzvaq-TG-J 04/13 Mammo SCREENING MAMMO DIGITAL, SOHEILA 05/02 CHEST X-RAY (PA/LATERAL) 05/02/2024 Future Test Test Name Order Date Lipid Panel With LDL/HDL Ratio-LC 2024 Comprehensive Metabolic Panel 14+eGFR-LC -Q 09/25/2024 Urinalysis, Kujwvmcs-WW-N 09/25/2024 CBC With Differential/Uvkxvrci-FX-Q 09/10 Referrals Referral Date Details 05/02/2024 05/02/2024, Pleas e fax consult notes and/or results of procedure approved to [phone]. Thanks! CONSULT ONLY - MANAGED CARE ~Annual Eye Exam~, [facility] Next Appt Details Follow Up: 05/25/2024 medica l refill., Reason: 10/02/2024 medical refill Progress Notes * EDUARDO ABREUDOB:[birth year] (73 yo F)Acc No.[id number]:05/02/2024 Progress Note Patient:?EDUARDO ABREU Provider:?Macario Scott MD :1950???Age:73 Y???Sex:Female D ate:05/02/2024 Address:[address] [place] [address] Subjective: * Chief Complaints: * ???Established patient is he re today for lab results * HPI: ???Depression Screening:?PHQ-9?Little interest or pleasure in doing things?More than half the days,?Feeling down, depressed, or hopeless?More than half the days,?Trouble falling or staying asleep, or sleeping too much?Several days,?Feeling tired or having little energy?Nearly every day,?Poor appetite or overeating?More than half the days,?Feeling bad about yourself or that you are a failure, or have let yourself or your family down?Several days,?Trouble concentrating on things, such as reading the newspaper or watching television?Not at all,?Moving or speaking so slowly that other people could have noticed; or the opposite, being so fidgety or restless that you have been moving around a lot more than usual?Not at all,?Thoughts that you would be better off or of hurting yourself in some way?Not at all,?Total Score?11,?Interpretation?Moderate Depression.?Patient:? Patient came into office for lab results. * ROS:?General/Constitutional:?Denies?Change in appetite.?Denies?Chills.?Denies?Fatigue.?Denies?Fever.?Denies?Headache.?Denies?L ightheadedness.?Denies?Night sweats.?Denies?Sleep disturbance.?Denies?Weight gain.?Denies?Weight loss.?Women Only:?pelvic pain?denies.?Denies?Breast lump.?Denies?Breast pain.?Denies?Discharge from the breast.?Denies?Heavy bleeding during menses.?Denies?Hot flashes.?Denies?Irregular menses.?Denies?Missed periods.?Denies?Painful intercourse.?Denies?Painful menses.?Denies?Vaginal bleeding between periods.?Denies?Vaginal discharge/itching.? * Medical History:? 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 * OB History:?Total pregnancie s?3.? # 1:?normal spontaneous vaginal delivery ().? # 2:?Primary .? # 3?Repeat .? * Surgical History:?hystrectom y total 1996c-section 1970,1971right leg n/anose n/acarpal tunel on both hands n/a * Hospitalization/Major Diagno stic Procedure:?Denies Past Hospitalization * Family History:?Father: dece ased.?Mother: , diagnosed with Heart Disease, Hypertension.?3 brother(s) , 3 sister(s) - healthy. 3 son(s) - healthy. .? mother = thyroid. * Social History:?Tobacco Use:?Tobacco Control (Standard)?Tobacco use:?Former smoker,?How long has it been since you last smoked??Greater than 10 years,?Additional Findings: Tobacco user?Moderate cigarette smoker (10-19 cigs/day),?Additional Findings: Tobacco non-user?Current nonsmoker.?Drug/Alcohol:?AUDIT-C (Standard)?Did you have a drink containing alcohol in the past year??No,?Points?0,?Interpretation?Negative.?Sexual History:?Sexual History?Had sex in the past 12 months (vaginal, oral, or anal)??Yes,?with?Men only,?Use protection??No,?Prevention strategies discussed:?Other,?Have you ever had a Sexually transmitted disease??No.?Drugs/Alcohol:?Drugs?Have you used drugs other than those for medical reasons in the past 12 months??No.?Miscellaneous:?Caffeine: Yes. Blood Transfusion: denies. Children: Yes. Community involvements: no. Domestic violence: no. Exercise: no. Home smoke detector use: no. Housing: rent. Legal problems: no. Living with: spouse. Marital status: . Natural support system: no. Occupation: weeks/months/years. Others at home: none. Sexual abuse: no. Sexually active: no. Travel outside of the [place]: no. Verbal abuse: no. * Medications:?TakingMultivita min - Tablet 1 tablet Orally Once a day Rizatriptan Benzoate 10 MG Tablet 1 tablet Orally Once a day Cyclobenzaprine HCl 5 MG Tablet 1 tablet at bedtime as needed Orally Once a day Levothyroxine Sodium 112 MCG Tablet 1 tablet in the morning on an empty stomach Orally Once a day traZODone HCl 150 MG Tablet 1 tablet at bedtime Orally Once a day Meclizine HCl 12.5 MG Tablet 1 tablet as needed Orally every 12 hrs hydrOXYzine HCl 25 MG/ML Solution as directed Intramuscular Albuterol Sulfate 108 (90 Base) MCG/ACT Aerosol Powder Breath Activated 1 puff as needed Inhalation every 4 hrs Atenolol 50 MG Tablet 1 tablet Orally Once a day Rosuvastatin Calcium 10 MG Tablet 1 tablet Orally Once a day Topiramate 100 MG Tablet 1 tablet Orally Once a day Medication List reviewed and reconciled with the patientTaking Multivitamin - Tablet 1 tablet Orally Once a day Taking Rizatriptan Benzoate 10 MG Tablet 1 tablet Orally Once a day Taking Cyclobenzaprine HCl 5 MG Tablet 1 tablet at bedtime as needed Orally Once a day Taking Levothyroxine Sodium 112 MCG Tablet 1 tablet in the morning on an empty stomach Orally Once a day Taking traZODone HCl 150 MG Tablet 1 tablet at bedtime Orally Once a day Taking Meclizine HCl 12.5 MG Tablet 1 tablet as needed Orally every 12 hrs Taking hydrOXYzine HCl 25 MG/ML Solution as directed Intramuscular Taking Albuterol Sulfate 108 (90 Base) MCG/ACT Aerosol Powder Breath Activated 1 puff as needed Inhalation every 4 hrs Taking Atenolol 50 MG Tablet 1 tablet Orally Once a day Taking Rosuvastatin Calcium 10 MG Tablet 1 tablet Orally Once a day Taking Topiramate 100 MG Tablet 1 tablet Orally Once a day Medication List reviewed and reconciled with the patient * Allergies:?Tramadol: rashno[ Allergies Verified] Objective: * Vitals:?Ht: 5ft2in, Wt:140, BMI:25.6, Temp:97, HR:75, BP:139/82, RR:19, Oxygen sat %:99. * ???Past Orders: ???Lab:Microalb/Creat Ratio, Timed Ur-LC (Order Date - 04/24/2024) (Collection Date & Time - 04/24/2024 09:05 AM) ? Value Reference Range ?Creatinine, Urine 86.5 No t Estab. - mg/dL ?Microalb/[employer] Consultant. Ratio 4.5 0.0-30.0 - ug/mg creat ?Microalbumin, Urine 3.9 Not Estab. - ug/mL ?Microalbumin,mg/day TNP - mg/day ?Ur.Collec. Interval 0 - min ???Lab:Cardiovascular Risk A ssessment (Order Date - 04/24/2024) (Collection Date & Time - 04/24/2024 09:05 AM) ? Value Reference Range ?Interpretation Note - ?PDF Image . - ???Lab:Lipid Panel With LDL/ HDL Ratio-LC (Order Date - 04/24/2024) (Collection Date & Time - 04/24/2024 09:05 AM) ? Value Reference Range ?Cholesterol, Total 232 H 1 00-199 - mg/dL ?Triglycerides 76 0-149 - mg/dL ?HDL Cholesterol 71 >39 - mg/dL ?VLDL Cholesterol Koby 13 5-40 - mg/dL ?LDL Chol Calc (NIH) 148 H 0-99 - mg/dL ?LDL/HDL Ratio 2.1 0.0-3. 2 - ratio ???Lab:Comprehensive Metabol ic Panel 14+eGFR-LC-Q (Order Date - 04/24/2024) (Collection Date & Time - 04/24/2024 09:05 AM) ? Value Reference Range ?Creatinine, Serum 0.83 0. 57-1.00 - mg/dL ?Calcium, Serum 9.7 8.7-1 0.3 - mg/dL ?AST (SGOT) 15 0-40 - IU /L ?Alkaline Phosphatase, S 123 H 44-121 - IU/L ?Bilirubin, Total 0.4 0.0 -1.2 - mg/dL ?Globulin, Total 2.3 1.5- 4.5 - g/dL ?Albumin, Serum 4.6 3.8-4 .8 - g/dL ?Protein, Total, Serum 6.9 6.0-8.5 - g/dL ?ALT (SGPT) 10 0-32 - IU /L ?Chloride, Serum 105 96-1 06 - mmol/L ?Potassium, Serum 4.6 3.5 -5.2 - mmol/L ?Sodium, Serum 140 134-14 4 - mmol/L ?BUN/Creatinine Ratio 17 12-28 - ?BUN 14 8-27 - mg/dL ?Glucose, Serum 94 70-99 - mg/dL ?Carbon Dioxide, Total 24 20-29 - mmol/L ?eGFR 75 >59 - mL/min/1. 73 ???Lab:Urinalysis, Complete- LC-Q (Order Date - 04/24/2024) (Collection Date & Time - 04/24/2024 09:05 AM) ? Value Reference Range ?Bacteria None seen None seen/F ew - ?Casts None seen None seen - /l pf ?Epithelial Cells (non renal) None seen 0 - 10 - /hpf ?RBC 0-2 0 - 2 - /hpf ?WBC None seen 0 - 5 - /hpf ?Microscopic Examination See below: - ?Protein Negative Negative/Tra ce - ?Specific [place] 1.016 1.0 05-1.030 - ?pH 7.0 5.0-7.5 - ?Urine-Color Yellow Yellow - ?WBC Esterase Negative Negativ e - ?Glucose Negative Negative - ?Ketones Negative Negative - ?Occult Blood Negative Negativ e - ?Urobilinogen,Semi-Qn 0.2 0.2-1.0 - mg/dL ?Nitrite, Urine Negative Negat leti - ?Bilirubin Negative Negative - ?Appearance Cloudy A Clear - ???Lab:CBC With Differential /Uspognyx-UN-A (Order Date - 04/24/2024) (Collection Date & Time - 04/24/2024 09:05 AM) ? Value Reference Range ?Eos (Absolute) 0.3 0.0-0 .4 - x10E3/uL ?Baso (Absolute) 0.0 0.0- 0.2 - x10E3/uL ?Immature Granulocytes 0 Not Estab. - % ?Immature Grans (Abs) 0.0 0.0-0.1 - x10E3/uL ?Monocytes(Absolute) 0.4 0.1-0.9 - x10E3/uL ?Hematocrit 39.9 34.0-46.6 - % ?WBC 5.5 3.4-10.8 - x10E 3/uL ?Hemoglobin 13.1 11.1-15.9 - g/dL ?MCV 87 79-97 - fL ?MCH 28.5 26.6-33.0 - pg ?Lymphs (Absolute) 2.7 0. 7-3.1 - x10E3/uL ?MCHC 32.8 31.5-35.7 - g/d L ?RDW 13.0 11.7-15.4 - % ?Neutrophils 37 Not Esta b. - % ?Lymphs 50 Not Estab. - % ?Monocytes 7 Not Estab. - % ?Eos 6 Not Estab. - % ?Basos 0 Not Estab. - % ?Neutrophils (Absolute) 2.0 1.4-7.0 - x10E3/uL ?Platelets 243 150-450 - x10E3/uL ?RBC 4.59 3.77-5.28 - x10 E6/uL ???Lab:TSH reflex to T4 (Ord er Date - 04/24/2024) (Collection Date & Time - 04/24/2024 09:05 AM) ? Value Reference Range ?TSH 3.730 0.450-4.500 - u IU/mL * Examination: ???Assessment: ?Presentation?pleasant, well nourished, well developed, in no acute distress, calm and relaxed, cooperative.?HEAD:?normocephalic, atraumatic, no scalp lesions, no scars..?EYES:?Both Eyes, extraocular movement intact (EOMI), sclera non-icteric.?EARS:?Both Ears, normal, auditory canal clear, hearing intact to whispered voice, tympanic membrane intact, clear, light reflex present.?NOSE:?nares patent, no lesions.?ORAL CAVITY:?mucosa moist, no lesions.?THROAT:?clear, no erythema, no exudate.?NECK/THYROID:?neck supple, full range of motion, no thyromegaly, thyroid nontender.?LYMPH NODES:?no palpable adenopathy.?SKIN?no suspicious lesions, warm and dry.?HEART: regular rate and rhythm, S1, S2 normal, no murmurs, rubs, gallops.?LUNGS?clear to auscultation bilaterally, no wheezes, rales, rhonchi, good air movement, clear anteriorly and posteriorly.?CHEST?no gross rib deformity, normal shape and expansion.?ABDOMEN:?bowel sounds present, soft, nontender, nondistended.?RECTAL EXAM:?FOBT performed. Seo Expert present Mihaela.?BACK:?normal exam of spine, FROM. no CVA tenderness, No scoliosis, No kyphosis, spine non tender. SLR neg bl., full range of motion, no scoliosis.?EXTREMITIES?no clubbing, cyanosis, or edema.?PERIPHERAL PULSES:?2+ throughout.?NEUROLOGIC:?nonfocal, alert and oriented, gait normal, no rigidity, no tremor, sensory exam intact.?PSYCH:?alert, oriented, cognitive function intact, cooperative with exam, good eye contact, no auditory or visual hallucinations, thought content without suicidal ideation, delusions.?Pain?No.?FOOT EXAM:?No deformities or superficial laceration noted, no redness, no swelling, no tenderness. .? Assessment: * Assessment: 1.?Severe persistent asthma without complication - J45.50 (Primary)???2.?Moderate recurrent major depression - F33.1???3.?Hypertensive chronic kidney disease with stage 1 through stage 4 chronic kidney disease, or unspecified chronic kidney disease - I12.9???4.?CKD (chronic kidney disease), stage II - N18.2???Notes :GFR 75 as per lab results from 04/26/2024???5.?Mixed hyperlipidemia - E78.2???6.?Migraine syndrome - G43.909???7.?Acquired hypothyroidism - E03.9???8.?Vertigo - R42???9.?Overweight (BMI 25.0-29.9) - E66.3???10.?Former smoker - Z87.891???11.?Body mass index (BMI) of 25.0 to 25.9 in adult - Z68.25???12.?Encounter for examination of eyes and vision without abnormal findings - Z01.00???13.?Encounter for screening mammogram for breast cancer - Z12.31???14.?Encounter for fecal immunochemical test screening - Z12.11???15.?Screening for osteoporosis - Z13.820??? Plan: * Treatment: 2.?Moderate recurrent major depression? Continue traZODone HCl Tablet, 150 MG, 1 tablet at bedtime, Orally, Once a day.?? Notes: Recommended to patient avoid stressful situations. Will continue to monitor.?? 3.?Hypertensive chronic kidn ey disease with stage 1 through stage 4 chronic kidney disease, or unspecified chronic kidney disease? Continue Atenolol Tablet, 50 MG, 1 tablet, Orally, Once a day.?LAB: Comprehensive Metabolic Panel 14+eGFR-LC-Q ?LAB: Urinalysis, Ntflnyzn-LG-Y ?LAB: CBC With Differential/Afxvrjlq-PP-L ?LAB: CBC With Differential/Viymciyg-SE-M (Ordered for 09/25/2024) ?LAB: Comprehensive Metabolic Panel 14+eGFR-LC-Q (Ordered for 09/25/2024) ?LAB: Lipid Panel With LDL/HDL Ratio-LC (Ordered for 09/25/2024) ?LAB: Urinalysis, Vxmydkam-MB-V (Ordered for 09/25/2024) ?Imaging: EKG Electrocardiogram ?Imaging: CHEST X-RAY (PA/LATERAL) Notes: CKD Stage II due to HTN. Blood pressure control and daily exercise as tolerated is recommended. Will continue to monitor.?? 4.?CKD (chronic kidney disea se), stage II? Notes:GFR 75 as per lab results from 03/25/2024?? 5.?Mixed hyperlipidemia? Continue Rosuvastatin Calcium Tablet, 10 MG, 1 tablet, Orally, Once a day.?LAB: Lipid Panel-Q-LC 6.?Migraine syndrome? Continue Topiramate Tablet, 100 MG, 1 tablet, Orally, Once a day.?? 7.?Acquired hypothyroidism? Continue Levothyroxine Sodium Tablet, 112 MCG, 1 tablet in the morning on an empty stomach, Orally, Once a day.?? 8.?Vertigo? Continue Meclizine HCl Tablet, 12.5 MG, 1 tablet as needed, Orally, every 12 hrs.?? 9.?Overweight (BMI 25.0-29.9 )? Notes: Avoid overeating, eating too quickly, eating high-fat foods, eating during stressful situations, or drinking too much alcohol or coffee. Counseled patient on adequate diet and exercise.?? 10.?Former smoker? Notes: Patient quit smoking?? 11.?Encounter for examinatio n of eyes and vision without abnormal findings? Referral To:[facility]??Sas Developer ?Reason: Please fax consult notes and/or results of procedure approved to [phone]. Thanks! CONSULT ONLY - MANAGED CARE ~Annual Eye Exam~ 12.?Encounter for screening mammogram for breast cancer?Imaging: Mammo SCREENING MAMMO DIGITAL, SOHEILA 13.?Encounter for fecal immu nochemical test screening?LAB: Occult Blood, Fecal, IA-LAB BRENNON (Collection Date & Time - 05/02/2024 12:54 PM) 14.?Screening for osteoporos is?Imaging: DEXA Hip and Spine * Procedure Codes:?3075F SYST BP GE 130 - 139MM [id number] DIAST BP 80-89 MM [id number] AMNT PAIN NOTED NONE [id number] ADVNC CARE PLAN TLK [id number] MED LIST DOCD IN [id number] RVW MEDS BY RX/DR IN [id number] FXNL STATUS [id number] STATIN THERAPY/CURRENTLY [id number] FALL RISK ASSESSMENT [id number] SCREEN DEPRESSION [id number] NEG MICROALBUMINURIA [id number] BMI<30 AND >=22 CALC & DOCU * Preventive Medicine:? ??Counseling:?Smoking?.?Alcohol and drugs?.?Diet?.?Injury prevention?.?Exercise?.?Sexual practices?.?Breast self exam after periods?.?Domestic violence?.?Sunscreen?.?Annual pap smear?.?Bike helmet?.? ??Health Promotion:?Breast self exam?.?Oral health?.?Sexual health?.? ??Infectious Disease:?Discussed appropriate diet?.?Discussed unsafe sexual practices?.? ??Injury Prevention/Safety:?Drugs/alcohol/tobacco?.?Self protection?.? ??Nutrition Counseling:?Appropriate frequency and duration of feedings discussed?.?Healthy food choices?.?Self-feeding?.?Weight management?.? * Follow Up:?05/25/2024 medica l refill. (Reason: 10/02/2024 medical refill) * Images: Care Plan Details* * Sign off status: Completed true * Provider:?Macario Scott MD Date:?04/13 Generated for Tom kenny/Dania/eTashishsmitting on:?08/14/2024 03:12 PM EDT History and Physical Notes * HPI (History of Present Illness) Category Sub-Category Detail Notes Category Not es Patient Patient came in to office for lab results Depression Screening PHQ-9 Little inte rest or pleasure in doing things: More than half the days Feeling down, depressed, or hopeless: Mo re than half the days Trouble falling or staying asleep, or sl eeping too much: Several days Feeling tired or having little energy: N early every day Poor appetite or overeating: More than h elian the days Feeling bad about yourself o r that you are a failure, or have let yourself or your family down: Several days Trouble concentrating on thi ngs, such as reading the newspaper or watching television: Not at all Moving or speaking so slowly that other people could have noticed; or the opposite, being so fidgety or restless that you have been moving around a lot more than usual: Not at all Thoughts that you would be b daren off or of hurting yourself in some way: Not at all Total Score: 11 Interpretation: Moderate Depression Examination Category Sub-Category Detail Notes Category Not es Assessment Presentation pleasant, well n ourished, well developed, in no acute distress, calm and relaxed, cooperative HEAD: normocephalic, atrau matic, no scalp lesions, no scars. EYES: Both Eyes, extraocul ar movement intact (EOMI), sclera non-icteric EARS: Both Ears, normal, a uditory canal clear, hearing intact to whispered voice, tympanic membrane intact, clear, light reflex present NOSE: nares patent, no les ions THROAT: clear, no erythema, no exudate NECK/THYROID: neck supple, full ra nge of motion, no thyromegaly, thyroid nontender HEART: regular rate and rhy thm, S1, S2 normal, no murmurs, rubs, gallops CHEST no gross rib deformi ty, normal shape and expansion LUNGS clear to auscultatio n bilaterally, no wheezes, rales, rhonchi, good air movement, clear anteriorly and posteriorly ABDOMEN: bowel sounds present , soft, nontender, nondistended NEUROLOGIC: nonfocal, alert and oriented, gait normal, no rigidity, no tremor, sensory exam intact SKIN no suspicious lesion s, warm and dry EXTREMITIES no clubbing, cyanosi s, or edema PERIPHERAL PULSES: 2+ throughout BACK: normal exam of spine , FROM. no CVA tenderness, No scoliosis, No kyphosis, spine non tender. SLR neg bl., full range of motion, no scoliosis LYMPH NODES: no palpable adenopat hy RECTAL EXAM: FOBT performed. Carlos Chairez PSYCH: alert, oriented, cog nitive function intact, cooperative with exam, good eye contact, no auditory or visual hallucinations, thought content without suicidal ideation, delusions ORAL CAVITY: mucosa moist, no les ions FOOT EXAM: No deformities or davila perficial laceration noted, no redness, no swelling, no tenderness. Pain No Consultation Request Notes Referral Date Referring Provider Referred Provider Not es 05/02/2024 Macario Scott Soompi RAMSES, EYEDEAL Please fax consult notes and/or results of procedure approved to [phone]. Thanks! CONSULT ONLY - MANAGED CARE ~Annual Eye Exam~
--- OUTSIDE RECORDS SUMMARY | 2024-08-14 15:13 | XMS_ITS | Encounter Summary ---
Author Organization [facility] Address [address] [place] [address] Care Team Providers Care Skip Hoist Engineer Name Role Phone Yue Moreira MD Primary Care Provider Un available Delmis Torres MD Unavailable Unavailable Yue Moreira MD Unavailable Unavaila Emily Foy MD Primary Care Provider Unavail able Count Includes [facility], Pcp Primary Care Provider UnavailAddi Ball NP Primary Care Provider Unavail able Liza Hernandez MD Unavailable [phone] Benita Quinn PA-C Unavailable [phone] Reason for Visit * Reason Comments E-prescribe Rx Request Encounter Details Date Type Department Care Team Description 08/19/2018 Refill Internal Medicine - [place] 175 [facility], [address] [place] [address] Yue Moreira MD E-prescribe Rx Request Social History Tobacco Use Types Packs/Day Years Used Date Smoking Tobacco: Former Smokeless Tobacco: Never Alcohol Use Standard Drinks/Week Comments No 0 (1 standard drink = 0.6 oz pur e alcohol) Sex Assigned at Date Recorded Not on file documented as of this encounter Miscellaneous Notes * Telephone Encounter - Jia Trejo - 08/19/2018 11:13 AM EDT Patient would like script to be: E-PRESCRIBED/FAXED TO PHARMACY WHEN WAS THE PATIENT'S LAST APPOINTMENT IN ADULT MEDICINE? 07/14/18 WHEN WAS THE LAST TIME THE PATIENT SAW THEIR PCP? 07/07/18 Does patient have an upcoming appointment? Yes 08/17/18 (THE MEDICATION REQUESTED IS ON THE MED LIST ABOVE) All of the medications requested were on the CURRENT MEDS list Did you check the Pharmacy information above?: YES Patient wants: 90 -day supply Is this a mail order prescription request ? NO If the refill is from a FAXED refill request what is the RX # listed on the fax? N/A Patients current insurance carrier is: [facility] / Plan: Nexio $0 [id number] [id number] / Product Type: [employer] [id number] documented in this encounter Plan of Treatment Not on file documented as of this encounter Visit Diagnoses Not on filedocumented in this encounter Care Teams Skip Hoist Engineer Relationship Specialty Start Date End Date Yue Moreira MD PCP - General Internal Medicine 06/06/1802/07 Emily Burrell MD PCP - General Internal Medicine 02/08/19 04/24/21 Count Includes [facility], Pcp PCP - General Internal Medicine 04/25/21 09/02/21 Addi Holland NP PCP - General Family Practice 09/03/21 Delmis Torres MD Internal Medicine 06/06/18 Yue Moreira MD Internal Medicine 06/06/18 Liza Hernandez MD 175 [facility] [address] [place] [address] Surgeon Neurosurgery 09/09/21 Benita Quinn PA-C 175 [facility] [address] [place] [address] Specialist Neurosurgery 09/09/21 documented as of this encounter
--- OUTSIDE RECORDS SUMMARY | 2024-08-14 15:13 | XMS_ITS | Encounter Summary ---
Author Organization [facility] Address [address] [place] [address] Care Team Providers Care Manager Talent Management Name Role Phone Yue Moreira MD Primary Care Provider Un available Delmis Torres MD Unavailable Unavailable Yue Moreira MD Unavailable Unavaila ble Emily Burrell MD Primary Care Provider Unavail able [facility], Pcp Primary Care Provider UnavailAddi Ball NP Primary Care Provider Unavail able Liza Hernandez MD Unavailable [phone] Benita Quinn PA-C Unavailable [phone] Encounter Details Date Type Department Care Team Description 06/23/2018 Release of Information Medical Records [address] [place] [address] Abstract, Provider Social History Tobacco Use Types Packs/Day Years [...] on filedocumented in this encounter Care Teams Manager Talent Management Relationship Specialty Start Date End Date Yue Moreira MD PCP - General Internal Medicine 06/06/1802/07 Emily Burrell MD PCP - General Internal Medicine 02/08/19 04/24/21 [facility], Pcp PCP - General Internal Medicine 04/25/21 09/02/21 Addi Holland NP PCP - General Family Practice 09/03/21 Delmis Torres MD Internal Medicine 06/06/18 Yue Moreira MD Internal Medicine 06/06/18 Liza Hernandez MD 175 [facility] [address] [place] [address] Surgeon Neurosurgery 09/09/21 Benita Quinn PA-C [address] [address] Specialist Neurosurgery 09/09/21 documented as of this encounter
--- OUTSIDE RECORDS SUMMARY | 2024-08-14 15:13 | XMS_ITS | Encounter Summary ---
Author Organization [employer] [facility] Address [address] [place] [address] Care Team Providers Care Carbon Brushes Assembler Name Role Phone Delmis Torres MD Unavailable Unavailable Yue Moreira MD Unavailable Unavaila [facility], Pcp Primary Care Provider UnavailAddi Ball OPERATIONAL ASSISTANT Primary Care Provider Unavail able Liza Hernandez MD Unavailable Benita Quinn PA-C Unavailable Reason for Visit * Reason Comments E-prescribe Rx Request Encounter Details Date Type Department Care Team Description 07/01/2021 Refill Gastroenterology - [place] 175 [facility] [address] [place] [address] Kim Simmons DScPAS E-prescribe Rx Request Social History Tobacco Use [...] on filedocumented in this encounter Care Teams Carbon Brushes Assembler Relationship Specialty Start Date End Date [facility], Pcp PCP - General Internal Medicine 04/25/21 09/02/21 Addi Holland NP PCP - General Family Practice 09/03/21 Delmis Torres MD Internal Medicine 06/06/18 Yue Moreira MD Internal Medicine 06/06/18 Liza Hernandez MD 175 [facility] [address] [place] [address] Surgeon Neurosurgery 09/09/21 Benita Quinn PA-C [address] [place] [address] [place] [id number] Specialist Neurosurgery 09/09/21 documented as of this encounter
--- OUTSIDE RECORDS SUMMARY | 2024-08-14 15:13 | XMS_ITS ---
Author Organization [facility] Address [address] [place] [address] Care Team Providers Care Light Coil Winder Name Role Phone AUTUMN PADILLA Primary Care Provider REASON FOR VISIT follow up labs + MMSE Encounters Encounter Location Date Provider Diagnosis [facility] [address] [place] [address] 04/04/2024 AUTUMN BEASLEY Plan Of Treatment No Information Progress Notes * Marie BRASWELLDO B:1950 (73 yo F)Acc No.[id number]:04/04/2024 Progress Notes Patient:?Patricia BRASWELL Provider:?AUTUMN BEASLEY MD :1950???Age:73 Y???Sex:Female D ate:04/04/2024 Phone: Address:[address] [place], [place] [phone] Structured Data:Consent to r eceive voicemail/text messages? : YES Subjective: * Chief Complaints: * ???1. follow up labs + MMSE. * Medical History:? Objective: * Vitals:? Assessment: Plan: * Treatment: * Billing Information: * Visit Code:? * Procedure Codes:? * Electronic signature of AUTUMN BEASLEY MD on 08/14/2024 at 03:12 PM EDT Sign off status: Pending * Provider:?AUTUMN BEASLEY MD Da te:?04/04/2024 Generated for Printi ng/Faxing/eTransmitting on:?08/14/2024 03:12 PM EDT
--- OUTSIDE RECORDS SUMMARY | 2024-08-14 15:13 | XMS_ITS | Encounter Summary ---
Author Organization [facility] Address [address] [place] [address] Care Team Providers Care Financial Reporting Specialist Name Role Phone Delmis Torres MD Unavailable Unavailable Yue Moreira MD Unavailable Unavaila Addi Klein NP Primary Care Provider Unavail able Liza Hernandez MD Unavailable [phone] Benita Quinn PA-C Unavailable [phone] Reason for Visit * Reason Comments E-prescribe Rx Request Encounter Details Date Type Department Care Team Description 11/17/2021 Refill Gastroenterology - [place] 175 [facility] [address] [place] [address] Kim Simmons DScPAS E-prescribe Rx Request Social History Tobacco Use Types Packs/Day Years Used Date Smoking Tobacco: Former Smokeless Tobacco: Never Alcohol Use Standard Drinks/Week Comments No 0 (1 standard drink = 0.6 oz pur e alcohol) Sex Assigned at Date Recorded Not on file documented as of this encounter Miscellaneous Notes * Telephone Encounter - Dhara Adair M.A. - 11/17/2021 2:15 PM EDT Howard 08/14/20 documented in this encounter Plan of Treatment Not on file documented as of this encounter Visit Diagnoses Not on filedocumented in this encounter Care Teams Financial Reporting Specialist Relationship Specialty Start Date End Date Addi Holland, CLEVE PCP - General Family Practice 09/03/21 Delmis Torres MD Internal Medicine 06/06/18 Yue Moreira MD Internal Medicine 06/06/18 Liza Hernandez MD 175 [facility] [address] [place] [address] Surgeon Neurosurgery 09/09/21 Benita Quinn PA-C [address] [address] Specialist Neurosurgery 09/09/21 documented as of this encounter
--- OUTSIDE RECORDS SUMMARY | 2024-08-14 15:13 | XMS_ITS ---
Author Organization [employer] Address [address] [place] [address] Care Team Providers Care Equipment Man Name Role Phone Macario Scott Primary Care Provider [phone] REASON FOR VISIT F/UP REFILL Social History Sex Assigned At : Social History Observation Description Sex Assigned At Female Encounters Encounter Location Date Provider Diagnosis [facility] [address] [address] 06/16/2024 Macario Scott Plan Of Treatment No Information Progress Notes * EDUARDO ABREUDOB:[birth year] (73 yo F)Acc No.[id number]:06/16/2024 Progress Note Patient:?EDUARDO ABREU Provider:?Macario Scott MD :1950???Age:73 Y???Sex:Female D ate:06/16/2024 Address:[address] [place], [place] [id number] Subjective: * Chief Complaints: * ???1. F/UP REFILL. * Medical History:? Objective: * Vitals:? Assessment: Plan: * Treatment: * Images: Care Plan Details* * Electronic signature of Anoop Scott MD on 08/14/2024 at 03:12 PM EDT Sign off status: Pending * Provider:?Macario Scott MD Date:?10/2024 Generated for Tom kenny/Dania/eTransmitting on:?08/14/2024 03:12 PM EDT
--- OUTSIDE RECORDS SUMMARY | 2024-08-14 15:13 | XMS_ITS | Encounter Summary ---
Author Organization [facility] Address [address] [place] [address] Care Team Providers Care Color Checker Roving Or Yarn Name Role Phone Yue Moreira MD Primary Care Provider Un available Delmis Torres MD Unavailable Unavailable Yue Moreira MD Unavailable Unavaila ble Emily Burrell MD Primary Care Provider Unavail able [facility], Pcp Primary Care Provider UnavailAddi Ball NP Primary Care Provider Unavail able Liza Hernandez MD Unavailable [phone] Benita Quinn PA-C Unavailable [phone] Encounter Details Date Type Department Care Team Description 08/03/2018 News Clerk Report Medical Records [address] [place] [address] Thomas Limon MD Social History Tobacco Use Types Packs/Day [...] on filedocumented in this encounter Care Teams Color Checker Roving Or Yarn Relationship Specialty Start Date End Date Yue Moreira MD PCP - General Internal Medicine 06/06/1802/07 Emily Burrell MD PCP - General Internal Medicine 02/08/19 04/24/21 [facility], Pcp PCP - General Internal Medicine 04/25/21 09/02/21 Addi Holland NP PCP - General Family Practice 09/03/21 Delmis Torres MD Internal Medicine 06/06/18 Yue Moreira MD Internal Medicine 06/06/18 Liza Hernandez MD 175 [facility] [address] [place] [address] Surgeon Neurosurgery 09/09/21 Benita Quinn PA-C [address] [address] Specialist Neurosurgery 09/09/21 documented as of this encounter
--- OUTSIDE RECORDS SUMMARY | 2024-08-14 15:13 | XMS_ITS | Encounter Summary ---
Author Organization [facility] Address [address] [place] [address] Care Team Providers Care Freezer Person Name Role Phone Delmis Torres MD Primary Care Provider Unava ilYue Ching MD Primary Care Provider Un available Delmis Torres MD Unavailable Unavailable Yue Moreira MD Unavailable Unavaila Yue Shields MD Unavailable Unavaila Emily Foy MD Primary Care Provider Unavail able [facility], Pcp Primary Care Provider UnavailAddi Ball NP Primary Care Provider Unavail able Liza Hernandez MD Unavailable [phone] Benita Quinn PA-C Unavailable [phone] Reason for Visit * Reason Comments E-prescribe Rx Request Encounter Details Date Type Department Care Team Description 04/28/2018 Refill Internal Medicine - [place] 175 [facility], [address] [place] [address] Delmis Torres MD E-prescribe Rx Request Social History Tobacco Use Types Packs/Day Years Used Date Smoking Tobacco: Former Sex Assigned at Date Recorded Not on file documented as of this encounter Miscellaneous Notes * Telephone Encounter - Titi Ortega M.A. - 04/28/2018 2:04 PM EST LAST SEEN 12/14/17 ? F/UP 06/02/18 documented in this encounter Plan of Treatment Not on file documented as of this encounter Visit Diagnoses Not on filedocumented in this encounter Care Teams Freezer Person Relationship Specialty Start Date End Date Delmis Torres MD PCP - General Internal Medicine 07/31/16 06/05/18 Yue Moreira MD PCP - General Internal Medicine 06/06/1802/07 Emily Burrell MD PCP - General Internal Medicine 02/08/19 04/24/21 [facility], [facility] PCP - General Internal Medicine 04/25/21 09/02/21 Addi Holland NP PCP - General Family Practice 09/03/21 Delmis Torres MD Internal Medicine 06/06/18 Yue Moreira MD Internal Medicine 07/31/16 Yue Moreira MD Internal Medicine 06/06/18 Liza Hernandez MD 175 [facility] [address] [place] [address] Surgeon Neurosurgery 09/09/21 Benita Quinn PA-C 175 [facility] [address] [place] [address] Specialist Neurosurgery 09/09/21 documented as of this encounter
--- OUTSIDE RECORDS SUMMARY | 2024-08-14 15:13 | XMS_ITS | Encounter Summary ---
Author Organization [facility] Address [address] [place] [address] Care Team Providers Care Helper Driver Name Role Phone Yue Moreira MD Primary Care Provider Un available Delmis Torres MD Unavailable Unavailable Yue Moreira MD Unavailable Unavaila [facility] Emily Burrell MD Primary Care Provider Unavail able [facility], Pcp Primary Care Provider UnavailAddi Ball NP Primary Care Provider Unavail able Liza Hernandez MD Unavailable [phone] Benita Quinn PA-C Unavailable [phone] Encounter Details Date Type Department Care Team Description 06/23/2018 Global Exp[employer] Sales Director Report Medical Records [address] [place] [address] Radha Betts PA-C Social History Tobacco Use Types Packs/Day Years Used Date Smoking Tobacco: Never Assessed Sex Assigned at Date Recorded Not on file documented as of this encounter Plan of Treatment Not on file documented as of this encounter Visit Diagnoses Not on filedocumented in this encounter Care Teams Helper Driver Relationship Specialty Start Date End Date Yue Moreira MD PCP - General Internal Medicine 06/06/1802/07 Emily Burrell MD PCP - General Internal Medicine 02/08/19 04/24/21 [facility], Pcp PCP - General Internal Medicine 04/25/21 09/02/21 Addi Holland NP PCP - General Family Practice 09/03/21 Delmis Torres MD Internal Medicine 06/06/18 Yue Moreira MD Internal Medicine 06/06/18 Liza Hernandez MD 175 [facility] [address] [place] [address] Surgeon Neurosurgery 09/09/21 Benita Quinn PA-C [address] [address] Specialist Neurosurgery 09/09/21 documented as of this encounter
--- OUTSIDE RECORDS SUMMARY | 2024-08-14 15:13 | XMS_ITS | Encounter Summary ---
Author Organization [facility] Address [address] [place] [address] Care Team Providers Care Maintenance Tech Name Role Phone Yue Moreira MD Primary Care Provider Un available Delmis Torres MD Unavailable Unavailable Yue Moreira MD Unavailable Unavaila Emily Foy MD Primary Care Provider Unavail able [facility], Pcp Primary Care Provider UnavailAddi Ball NP Primary Care Provider Unavail able Liza Hernandez MD Unavailable [phone] Benita Quinn PA-C Unavailable [phone] Reason for Visit * Reason Comments E-prescribe Rx Request Encounter Details Date Type Department Care Team Description 11/24/[address] [facility] 175 [facility] [address] [place] [address] Kim Simmons DScPAS E-prescribe Rx Request Social [...] on filedocumented in this encounter Care Teams Maintenance Tech Relationship Specialty Start Date End Date Yue [...] Internal Medicine 06/06/18 Liza Hernandez MD [address] [address] Surgeon Neurosurgery 09/09/21 Benita Quinn PA-C [address] [address] Specialist Neurosurgery 09/09/21 documented as of this encounter
--- OUTSIDE RECORDS SUMMARY | 2024-08-14 15:13 | XMS_ITS | Encounter Summary ---
Author Organization [facility] Address [address] [place] [address] Care Team Providers Care Director Of Digital Technology Name Role Phone Delmis Torres MD Unavailable Unavailable Yue Moreira MD Unavailable Unavaila Emily Foy MD Primary Care Provider Unavail able [facility], Pcp Primary Care Provider UnavailAddi Ball NP Primary Care Provider Unavail able Liza Hernandez MD Unavailable [phone] Benita Quinn PA-C Unavailable [phone] Encounter Details Date Type Department Care Team Description 08/02/2020 Orders Only Medical Records [address] [place] [address] Jose Maria Vela MD [address] [place] [address] Social History Tobacco Use Types Packs/Day Years Used Date Smoking Tobacco: Former Smokeless Tobacco: Never Alcohol Use Standard Drinks/Week Comments No 0 (1 standard drink = 0.6 oz pur e alcohol) Sex Assigned at Date Recorded Not on file COVID-19 Exposure Response Date Recorded In the last month, have you been in contact with someone who was confirmed or suspected to have Coronavirus / COVID-19? Unable to assess 07/08/2020 7:58 AM EDT documented as of this encounter Progress Notes * Kim Simmons PA-C - 08/12/2020 7:01 PM EDT Thank you so much for your a great recommendation. I will see patients for follow-up and then decide on treatment thank you so much * Nikolas Vela MD - 08/12/2020 6:13 PM EDT Gabriel Alvarez,The patient's gastric biopsies show evidence of active inflammation. This is usually considered presence of H. pylori infection despite H. pylori bacteria may not have been detected. I would recommend to treat the patient empirically for H. pylori. You may also choose to test H. pyloribreath test. I would defer you that decision.Thanks. documented in this encounter Plan of Treatment Not on file documented as of this encounter Procedures Procedure Name Priority Date/Time Associated Diagnosis Comments OUTSIDE PATHOLOGY Routine 07/31/2020 documented in this encounter Results * OUTSIDE PATHOLOGY (07/31/2020) H Tirso Vela MD OUTSIDE LAB documented in this encounter Visit Diagnoses Not on filedocumented in this encounter Care Teams Director Of Digital Technology Relationship Specialty Start Date End Date Emily Burrell MD PCP - General Internal Medicine 02/08/19 04/24/21 [facility], Pcp PCP - General Internal Medicine 04/25/21 09/02/21 Addi Holland NP PCP - General Family Practice 09/03/21 Delmis Torres MD Internal Medicine 06/06/18 Yue Moreira MD Internal Medicine 06/06/18 Liza Hernandez MD [address] [address] Surgeon Neurosurgery 09/09/21 Benita Quinn PA-C [address] [address] Specialist Neurosurgery 09/09/21 documented as of this encounter
--- OUTSIDE RECORDS SUMMARY | 2024-08-14 15:13 | XMS_ITS | Encounter Summary ---
Author Organization [facility] Address [address] [place] [address] Care Team Providers Care Die Cutting Machine Operator Name Role Phone Delmis Torres MD Unavailable Unavailable Yue Moreira MD Unavailable Unavaila ble Emily Burrell MD Primary Care Provider Unavail able [facility], Pcp Primary Care Provider UnavailAddi Ball SALON PROFESSIONAL Primary Care Provider Unavail able Liza Hernandez MD Unavailable [phone] Benita Quinn PA-C Unavailable [phone] Encounter Details Date Type Department Care Team Description 09/22/2019 Coronary Care Unit Nurse Report Medical Records [address] [place] [id number] [place] [address] Urgent Social History Tobacco Use Types Packs/Day Years [...] on filedocumented in this encounter Care Teams Die Cutting Machine Operator Relationship Specialty Start Date End Date Emily Burrell MD PCP - General Internal Medicine 02/08/19 04/24/21 [facility], Pcp PCP - General Internal Medicine 04/25/21 09/02/21 Addi Holland NP PCP - General Family Practice 09/03/21 Delmis Torres MD Internal Medicine 06/06/18 Yue Moreira MD Internal Medicine 06/06/18 Liza Hernandez MD 175 [facility] [address] [place] [address] Surgeon Neurosurgery 09/09/21 Benita Quinn PA-C [address] [address] Specialist Neurosurgery 09/09/21 documented as of this encounter
--- OUTSIDE RECORDS SUMMARY | 2024-08-14 15:13 | XMS_ITS | Encounter Summary ---
Author Organization [facility] Address [address] [place] [address] Care Team Providers Care Tear Down Matcher Name Role Phone Delmis Torres MD Primary Care Provider Unava ilable Yue Moreira MD Primary Care Provider Un available Delmis Torres MD Unavailable Unavailable Yue Moreira MD Unavailable Unavaila Yue Shields MD Unavailable Unavaila Emily Foy MD Primary Care Provider Unavail able [facility], Pcp Primary Care Provider UnavailAddi Ball NP Primary Care Provider Unavail able Liza Hernandez MD Unavailable [phone] Benita Quinn PA-C Unavailable [phone] Encounter Details Date Type Department Care Team Description 05/16/2018 Release of Information Medical Records [address] [place] [address] Abstract, Provider Social History Tobacco Use Types Packs/Day Years Used Date Smoking Tobacco: Never Assessed Sex Assigned at Date Recorded Not on file documented as of this encounter Plan of Treatment Not on file documented as of this encounter Visit Diagnoses Not on filedocumented in this encounter Care Teams Tear Down Matcher Relationship Specialty Start Date End Date Delmis Torres MD PCP - General Internal Medicine 07/31/16 06/05/18 Yue Moreira MD PCP - General Internal Medicine 06/06/1802/07 Emily Burrell MD PCP - General Internal Medicine 02/08/19 04/24/21 [facility], Pcp PCP - General Internal Medicine 04/25/21 09/02/21 Addi Holland NP PCP - General Family Practice 09/03/21 Delmis Torres MD Internal Medicine 06/06/18 Yue Moreira MD Internal Medicine 07/31/16 Yue Moreira MD Internal Medicine 06/06/18 Liza Hernandez MD 175 [facility] [address] [place] [address] Surgeon Neurosurgery 09/09/21 Benita Quinn PA-C 175 [facility] [address] [place] [address] Specialist Neurosurgery 09/09/21 documented as of this encounter
--- OUTSIDE RECORDS SUMMARY | 2024-08-14 15:13 | XMS_ITS | Encounter Summary ---
Author Organization [facility] Address [address] [place] [address] Care Team Providers Care Chucker Name Role Phone Yue Moreira MD Primary Care Provider Un available Delmis Torres MD Unavailable Unavailable Yue Moreira MD Unavailable Unavaila Emily Foy MD Primary Care Provider Unavail able [facility], Pcp Primary Care Provider UnavailAddi Ball NP Primary Care Provider Unavail able Liza Hernandez MD Unavailable [phone] Benita Quinn PA-C Unavailable [phone] Reason for Visit * Reason Comments E-prescribe Rx Request Encounter Details Date Type Department Care Team Description 08/19/2018 Refill Gastroenterology - [place] [address] [facility] [address] [place] [id number] Yue Moreira MD E-prescribe Rx Request Social History Tobacco Use Types Packs/Day Years Used Date Smoking Tobacco: Former Smokeless Tobacco: Never Alcohol Use Standard Drinks/Week Comments No 0 (1 standard drink = 0.6 oz pur e alcohol) Sex Assigned at Date Recorded Not on file documented as of this encounter Miscellaneous Notes * Telephone Encounter - Celena Edwards PA-C - 08/19/2018 12:53 PM EDT Ok to fill. Jenelle Cheney * Telephone Encounter - John Barber C.M.A. - 08/19/2018 11:05 AM EDT SUKHWINDER 07/14/18 Appt 11/14/18 * Telephone Encounter - Jia Trejo - 08/19/2018 11:01 AM EDT Patient would like script to be: E-PRESCRIBED/FAXED TO PHARMACY WHEN WAS THE PATIENT'S LAST APPOINTMENT IN ADULT MEDICINE? 07/14/18 WHEN WAS THE LAST TIME THE PATIENT SAW THEIR PCP? 07/07/18 Does patient have an upcoming appointment? Yes 11/14/18 (THE MEDICATION REQUESTED IS ON THE MED LIST ABOVE) All of the medications requested were on the CURRENT MEDS list Did you check the Pharmacy information above?: YES Patient wants: 30 -day supply Is this a mail order prescription request ? NO If the refill is from a FAXED refill request what is the RX # listed on the fax? N/A Patients current insurance carrier is: Payor: [facility] / [place] [facility] [place] [facility] [id number] / Product Type: HMO [id number] documented in this encounter Plan of Treatment Not on file documented as of this encounter Visit Diagnoses Not on filedocumented in this encounter Care Teams Chucker Relationship Specialty Start Date End Date Yue Moreira MD PCP - General Internal Medicine 06/06/1802/07 Emily Burrell MD PCP - General Internal Medicine 02/08/19 04/24/21 Katelynn Limon PCP - General Internal Medicine 04/25/21 09/02/21 Addi Holland NP PCP - General Family Practice 09/03/21 Delmis Torres MD Internal Medicine 06/06/18 Yue Moreira MD Internal Medicine 06/06/18 Liza Hernandez MD [address] [address] Surgeon Neurosurgery 09/09/21 Benita Quinn PA-C [address] [address] Specialist Neurosurgery 09/09/21 documented as of this encounter
--- OUTSIDE RECORDS SUMMARY | 2024-08-14 15:14 | XMS_ITS | Encounter Summary ---
Author Organization [facility] Address [address] [place] [address] Care Team Providers Care Md Psychiatry Name Role Phone Delmis Torres MD Primary Care Provider Unava ilYue Ching MD Primary Care Provider Un available Delmis Torres MD Unavailable Unavailable Yue Moreira MD Unavailable Unavaila Yue Shields MD Unavailable Unavaila Emily Foy MD Primary Care Provider Unavail able [facility], [facility]cp Primary Care Provider UnavailAddi Ball NP Primary Care Provider Unavail able Liza Hernandez MD Unavailable [phone] Benita Quinn PA-C Unavailable [phone] Reason for Visit * Reason Comments E-prescribe Rx Request Encounter Details Date Type Department Care Team Description 02/28/2018 Refill Internal Medicine - [place] 175 [facility], [address] [place] [address] Delmis Torres MD E-prescribe Rx Request Social History Tobacco Use Types Packs/Day Years Used Date Smoking Tobacco: Former Sex Assigned at Date Recorded Not on file documented as of this encounter Miscellaneous Notes * Telephone Encounter - Rosa Sanchez M.A. - 02/28/2018 11:48 AM EST Lv 02/09/18 Nv 06/02/18 documented in this encounter Plan of Treatment Not on file documented as of this encounter Visit Diagnoses Not on filedocumented in this encounter Care Teams Md Psychiatry Relationship Specialty Start Date End Date Delmis Torres MD PCP - General Internal Medicine 07/31/16 06/05/18 Yue Moreira MD PCP - General Internal Medicine 06/06/1802/07 Emily Burrell MD PCP - General Internal Medicine 02/08/19 04/24/21 [facility] PCP - General Internal Medicine 04/25/21 09/02/21 Addi Holland NP PCP - General Family Practice 09/03/21 Delmis Torres MD Internal Medicine 06/06/18 Yue Moreira MD Internal Medicine 07/31/16 Yue Moreira MD Internal Medicine 06/06/18 Liza Hernandez MD 175 [facility] [address] [place] [id number] Surgeon Neurosurgery 09/09/21 Benita Quinn PA-C [address] [facility] [address] [place] [address] Specialist Neurosurgery 09/09/21 documented as of this encounter
--- OUTSIDE RECORDS SUMMARY | 2024-08-14 15:14 | XMS_ITS | Encounter Summary ---
Author Organization [facility] Address [address] [place] [address] Care Team Providers Care Winder Operator Name Role Phone Delmis Torres MD Primary Care Provider Unava ilable Yue Moreira MD Primary Care Provider Un available Delmis Torres MD Unavailable Unavailable Yue Moreira MD Unavailable Unavaila Yue Shields MD Unavailable Unavaila Emily Foy MD Primary Care Provider Unavail able [facility] Pcp Primary Care Provider UnavailAddi Ball NP Primary Care Provider Unavail able Liza Hernandez MD Unavailable [phone] Benita Quinn PA-C Unavailable [phone] Reason for Visit * Reason Onset Date Comments refill request 03/08/2018 Encounter Details Date Type Department Care Team Description 03/08/2018 Telephone Internal Medicine - [place] 175 [facility], [address] [place] [address] Delmis Torres MD refill request Social History Tobacco Use Types Packs/Day Years Used Date Smoking Tobacco: Former Sex Assigned at Date Recorded Not on file documented as of this encounter Plan of Treatment Not on file documented as of this encounter Visit Diagnoses Not on filedocumented in this encounter Care Teams Winder Operator Relationship Specialty Start Date End Date Delmis Torres MD PCP - General Internal Medicine 07/31/16 06/05/18 Yue Moreira MD PCP - General Internal Medicine 06/06/1802/07 Emily Burrell MD PCP - General Internal Medicine 02/08/19 04/24/21 [facility], Pcp PCP - General Internal Medicine 04/25/21 09/02/21 Addi Holland NP PCP - General Family Practice 09/03/21 Delmis Torres MD Internal Medicine 06/06/18 Yue Moreira MD Internal Medicine 07/31/16 Yue Moreira MD Internal Medicine 06/06/18 Liza Hernandez MD [address] [address] Surgeon Neurosurgery 09/09/21 Benita Quinn PA-C [address] [address] Specialist Neurosurgery 09/09/21 documented as of this encounter
--- OUTSIDE RECORDS SUMMARY | 2024-08-14 15:14 | XMS_ITS | Patient Health Record ---
Author Organization [facility] Address [address] [place] [address] Care Team Providers Care Ballet Teacher Name Role Phone AUTUMN PADILLA Primary Care Provider [phone] Allergies Allergen (clinical drug ingredient) Drug/Non Drug Allergy documented on EMR Reaction Allergy Type Onset Date Status tramadol Tramadol rash Drug Allergy Active Reason For Referral No Information Medications Medication SIG (Take, Route, Frequency, Duration) Notes Start Date End Date Status traZODone HCl 150 MG 1 tablet at bedtime Orally Once a day for 90 days Active Albuterol Sulfate HFA 108 (9 0 Base) MCG/ACT 1 puff as needed Inhalation every 4 hrs 02/29/2024 Active Acetaminophen-Codeine 300-30 MG 1 tablet as needed Orally every 6 hrs 02/29/2024 Active Pantoprazole Sodium 40 MG 1 tablet 1/2 t o 1 hour before morning meal Orally Once a day for 90 days Active Rizatriptan Benzoate 10 MG 1 tablet Oral ly Once a day Active Meclizine HCl 12.5 MG 1 tablet as needed Orally every 12 hrs 02/29/2024 Active Cyclobenzaprine HCl 5 MG 1 tablet at bed time as needed Orally Once a day for 90 days Active Vitamin A 3 MG (45945 UT) 1 capsule with food or milk Orally Once a day Active hydrOXYzine HCl 25 MG 1 tablet as needed Orally Once a day for 30 day(s) 02/29/2024 Active Atenolol 50 MG 1 tablet Orally Once a day for 30 day(s) 02/29/2024 Active Social History Tobacco Use: Social History Observation Description Date Details (start date - stop date) Former Smoker 02/10/1970 - 02/10/1971 AUDIT-C (Standard) Question Answer Notes Did you have a drink containing alcohol in the p ast year? No Points 0 Interpretation Negative Tobacco Control (Standard) Question Answer Notes Tobacco use: Former smoker When did you start smoking? 02/10/1970 When did you stop smoking? 02/10/1971 How long has it been since you last smoked? 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) Active confirmed PHQ-9 score 20 Severe Depression Problem Insomnia (657849643) Insomnia (G47.00) Active confirmed Problem Osteoporosis (60099275) Osteoporosis (M81.0) Active confirmed Problem Moderate recurrent major depression (48219114) 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 Med. [facility] [address] [place] [address] 01/28/2024 AUTUMN BEASLEY [facility] Med. [facility] [address] [place] [address] 02/29/2024 AUTUMN BEASLEY Encounter for general adult medical examination with abnormal findings Z00.01 ; GERD K21.9 ; Insomnia G47.00 ; Osteoporosis M81.0 ; Major depressive disorder, single episode, severe without psychotic features F32.2 ; Opioid abuse, uncomplicated F11.10 ; Muscular pain M79.10 ; History of bariatric surgery Z98.84 and Body mass index [BMI] 26.0-26.9, adult Z68.26 Assessments Encounter Date Diagnosis (ICD Code) Assessment Notes Treatment Notes Treatment Clinical Notes Section Notes 02/29/2024 Encounter for general adult medical examination with abnormal findings (ICD-10 - Z00.01) We update his conditions for next visit according with lab results personalized his prevention plan. Medical record was reviewed, updated and discussed with the patient. A plan for their health has been developed during this visit that includes follow-up examinations, annual visit, screening and immunization schedule, and healthy lifestyle counseling. Patient was oriented that all medical history and information from other providers need to be reviewed before accessing the medical need to see any other specialists. The patient was given the opportunity to ask questions; all questions answered. Patient verbalized understanding and agreement with the treatment plan. 02/29/2024 GERD (ICD-10 - K21.9) Advised diet and exercise to promote weight loss and healthy weight to reduce and/or eliminate symptoms. Oriented to avoid large meals, eating 2-3 hours before bed, carbonated beverages, spicy foods, fatty foods, alcohol, and smoking. sx stable, cont. H2 radha/PPI med. pt. counseled on decreased caffeine in diet, avoid spicy food intake Advised diet and exercise to promote weight loss and healthy weight to reduce and/or eliminate symptoms. Avoid large meals and consume small/frequent meals. Avoid eating 2-3 hours before bed, carbonated beverages, spicy foods, fatty foods, ETOH, and smoking. Will follow. 02/29/2024 Insomnia (ICD-10 - G47.00) suspect secondary to stress. counseled on stress relieving activities (i.e. listening to calming music, walk around the house, etc.). started on non-controlled sleeping aid. cont.to monitor sx. pt. denies SI/HI. Take prescribed medications to assist with sleep. the Magnesium is OTC. It will help with sleep and digestion. This supplement takes approximately two weeks to take effect. Hydrate with plenty of water during the day. Stop any fluids at least 2 hours prior to bedtime. Patient counseled on sleep hygiene, lifestyle modification, as well as CBT-i today. Recommended shortest possible duration of sleep aides, and discussed long term care pharmacist side effects of these. 02/29/2024 Osteoporosis (ICD-10 - M81.0) Patient was oriented about calcium and vitamin D supplementation. Advised strength based exercises to help build and fortify bone. Sun exposure, limitation of alcohol and smoking discussed. Reduce your risk of falls: Wear supportive shoes with low heels and nonslip soles. based on recent bone density/DEXA scan; pt. counseled on taking OTC Vit. D/Ca. supp., along with osteoclast inhibitor (i.e. Alendronate); re-check image q yearly due to increased fall risk 02/29/2024 Major depressive disorder, single episode, severe without psychotic features (ICD-10 - F32.2) PHQ-9 score 20 Severe Depression Options discussed with pt. and instructed to keep a positive outlook. 02/29/2024 Opioid abuse, uncomplicated (ICD-10 - F11.10) Acetaminophen -codeine 300 mg 1 tab since 11/2023 Consult notes 02/29/2024 Medical Record page 2 Stable 02/29/2024 Muscular pain (ICD-10 - M79.10) due to c/o of diffuse joint pain and PE, inflammatory markers checked; also started on OTC glucosamine/Vit. D/glucosamine supp.; x-rays ordered for further evaluation; if patient menopausal, consider osteoporosis screening Avoid using joint that may cause or worsen the pain. Avoid sports. However, stay active by walking or light exercises. Apply ice pack to painful joint for up to 20 minutes few times a day. May take Tylenol or Ibuprofen as needed for pain. Watch out for swelling, redness, tenderness or warmth around the joint. If joint deformity, inability to use the joint, intense pain or sudden swelling, call or come back to the office. 02/29/2024 History of bariatric surgery (ICD-10 - Z98.84) 02/29/2024 Body mass index [BMI] 26.0-26.9, adult (ICD-10 - Z68.26) Plan Of Treatment Pending Test Test Name Order Date CBC with Differential & Platelets ([id number]) [facility] 02/29/2024 TSH & Free T4 (356320) [facility] UA Urinalysis with Reflex to Culture (79 3596) [facility] 02/29/2024 CMP Comp. Metabolic Panel (14) (942674) [facility] 02/29/2024 Lipid Panel (472765) [facility] 02/29/2024 Hemoglobin A1c 02/29/2024 Insurance Providers Payer Name Payer Address Payer Phone Subscriber Number Group Number Insured Name Patient Relationship to Insured Coverage Start Date Coverage End Date [facility] [address] [place] [address] [id number] Marie Engel Self - patient is the insured 4 4 Medical (General) History Medical History History ICD Code Insomnia Esophageal reflux oropharyngeal dyspnea Gastritis migraine dyslipidemia hypothyroidism osteoporosis anxiety essential hypertension Surgical History Surgery Date(Month/Year) shoulder surgery c section x2 hysterectomy nasal surgery carpal tunnel leg surgery left x2 NECK SURGERY
--- OUTSIDE RECORDS SUMMARY | 2024-08-14 15:14 | XMS_ITS ---
Author Organization [facility] Address [address] [place] [address] Care Team Providers Care Vacuum Bottle Assembler Name Role Phone AUTUMN PADILLA Primary Care Provider [phone] REASON FOR VISIT follow up labs Encounters Encounter Location Date Provider Diagnosis [facility] [address] [place] [address] 04/04/2024 AUTUMN BEASLEY Plan Of Treatment No Information Progress Notes * Marie BRASWELLDO B:1950 (73 yo F)Acc No.[id number]:04/04/2024 Patient:?Patricia BRASWELL Provider:?AUTUMN BEASLEY MD :1950???Age:73 Y???Sex:Female D ate:04/04/2024 Phone: Address:[address] [place], [place] [phone] Structured Data:Consent to r eceive voicemail/text messages? : YES Subjective: * Chief Complaints: * ???1. Follow up labs. * Medical History:? Objective: * Vitals:? Assessment: Plan: * Treatment: * Billing Information: * Visit Code:? * Procedure Codes:? * Electronic signature of AUTUMN BEASLEY MD on 08/14/2024 at 03:14 PM EDT Sign off status: Pending * Provider:?AUTUMN BEASLEY MD Da te:?04/04/2024 Generated for Printi ng/Faxing/eTransmitting on:?08/14/2024 03:14 PM EDT
--- OUTSIDE RECORDS SUMMARY | 2024-08-14 15:14 | XMS_ITS | Encounter Summary ---
Author Organization [facility] Address [address] [place] [address] Care Team Providers Care Production Hand Name Role Phone Delmis Torres MD Primary Care Provider Unava ilYue Ching MD Primary Care Provider Un available Delmis Torres MD Unavailable Unavailable Yue Moreira MD Unavailable Unavaila Yue Shields MD Unavailable Unavaila Emily Foy MD Primary Care Provider Unavail able [facility], Pcp Primary Care Provider UnavailAddi Ball NP Primary Care Provider Unavail able Liza Hernandez MD Unavailable [phone] Benita Quinn PA-C Unavailable [phone] Encounter Details Date Type Department Care Team Description 04/27/2018 Refill Internal Medicine - [place] 175 [facility], [address] [place] [address] Delmis Torres MD Social History Tobacco Use Types Packs/Day Years Used Date Smoking Tobacco: Former Sex Assigned at Date Recorded Not on file documented as of this encounter Miscellaneous Notes * Telephone Encounter - Titi Ortega M.A. - 04/27/2018 9:48 AM EST LAST SEEN 12/14/17 ?? F/UP 06/02/18 documented in this encounter Plan of Treatment Not on file documented as of this encounter Visit Diagnoses Not on filedocumented in this encounter Care Teams Production Hand Relationship Specialty Start Date End Date Delmis Torres MD PCP - General Internal Medicine 07/31/16 06/05/18 Yue Moreira MD PCP - General Internal Medicine 06/06/1802/07 Emily Burrell MD PCP - General Internal Medicine 02/08/19 04/24/21 [facility], Pcp PCP - General Internal Medicine 04/25/21 09/02/21 Addi Holland NP PCP - General Family Practice 09/03/21 Delmis Torres MD Internal Medicine 06/06/18 Yue Moreira MD Internal Medicine 07/31/16 Yue Moreira MD Internal Medicine 06/06/18 Liza Hernandez MD 175 [facility] [address] [place] [address] Surgeon Neurosurgery 09/09/21 Benita Quinn PA-C 175 [facility] [address] [place] [address] Specialist Neurosurgery 09/09/21 documented as of this encounter
== END 2024-08-14 15:47 | disposition home or self-care (01) ==
PROVIDERS: PCP Nurse Practitioner Family; Visit Provider Registered Nurse Emergency
DX: N39.0 Urinary tract infection, site not specified (principal); Z13.9 Encounter for screening, unspecified
CPT/HCPCS: 99213

== ENCOUNTER → 2024-08-14 13:41 | Outpatient (BNVA) | payer OTHER, SELFPAY | PROVIDERS: PCP Nurse Practitioner Family; Visit Provider Registered Nurse Emergency | DX: N39.0 Urinary tract infection, site not specified (principal) | CPT/HCPCS: 81003; 99212 ==

== ENCOUNTER 2024-08-16 11:13 | Outpatient (AMB) | payer OTHER, SELFPAY ==
--- NOTE | 2024-08-16 11:06 | MHC.OFFVISWM ---
VS Expanded 08/16/24 11:10 Height 5 ft 2 in Weight 152 lb BMI 27.8 Intake Visit Reasons: PO LSG 06/16/23 Allergies tramadol Allergy (Severe, Verified 08/14/24 15:06) Itching Medication List - Last Reconciled 08/16/24 by YOUNG Goins acetaminophen-codeine 300-30 mg 1 tab PO Q12H PRN albuterol sulfate 90 mcg/actuation 1 puff inhalation QID alendronate 70 mg PO QWEEK 90 days atenolol 50 mg PO DAILY [chair lift daily use NS] docusate sodium (Colace) 100 mg PO DAILY hospital bed daily hydroxyzine HCl 25 mg PO DAILY 30 days inulin 2 grams PO DAILY meclizine 12.5 mg PO BID PRN miscellaneous medical supply daily use, ECO-Patch Reusable self adhesive electrodes for TENS FES/NMES nitrofurantoin macrocrystal 100 mg PO Q12H rizatriptan take 1 tab at onset of headache; if no relief may repeat 1 tab after at least 2 hrs; max = 3 tabs/24 hr PO trazodone 150 mg PO BEDTIME vitamin A palmitate 10,000 units PO DAILY HPI Comments Details: This?is a?73?yo F who is s/p LSG 06/16/2023. Presents for 14 month post op visit. Weight at last visit on 11/24/2023 was 146.6 pounds with a BMI of 26.8, weight today is 152 pounds, representing a 5.4 pound weight gain with a BMI today of 27.8.? Reports some abdominal discomfort when she takes in anything . Even if it eat a little bit it feels like I eat a lot. No vomiting. Overall these symptoms have been getting better. The discomfort resolves on its own within a half hour. This happens even with water/liquids. Did have reflux prior to surgery, has been better since then, and this does not feel like reflux. Present meal plan includes: eats 2x/day, includes meat/eggs, tries to make sure foods are high in protein occasionally will incorporate shake or bar taking antonia MVI Exercise routine includes: walks outside has light weights at home 2-3lb weights Previous UGI results from preop: 12/10/2022 IMPRESSION: 1. Mild episodic gastroesophageal reflux noted during the examination to the level of the rafa. 2. Small type I hiatus hernia. 3. Somewhat patulous esophagus with poor primary motility and extensive presbyesophagus. Esophagus otherwise normal. No mucosal normalities. 4. Normal-appearing stomach, duodenal bulb and sweep. 5. Abnormally fast transit of contrast to the colon in under 5 minutes. This is of undetermined etiology on this examination as the jejunal and ileal fold patterns appear normal. The patient stated she is taking oral magnesium for constipation, which may be the underlying etiology. [facility] Medical History Insomnia PONV (postoperative nausea and vomiting) GERD (gastroesophageal reflux disease) Oropharyngeal dysphagia Gastritis Migraines Dyslipidemia Hypothyroidism Osteoporosis Anxiety Essential hypertension Surgical History History of shoulder surgery History of section History of nasal surgery History of surgery History of carpal tunnel surgery History of neck surgery Family History Father Cancer of prostate Mother HTN (hypertension) Maternal Grandmother Stroke Asthma Brother Substance use disorder Social History Household Members: Spouse Caregiver staying overnight: No Housing: Apartment Are you a primary transition of care specialist to a significant other at home: Yes (, he also has a RISK AND INSURANCE CONSULTANT) Do you presently have 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 or other home services: No 75 years or older and lives alone: No Alcohol intake: never Patient Tobacco Use Status: Former Tobacco user Tobacco use type: Cigarette e-Cigarette/Vaping Use: Never Used Second Hand Smoke Exposure: No service: No Current occupational status: retired Cognitive needs: No Hearing needs: No Vision needs: No Telehealth Telehealth Telehealth Platform: Telephone Location of provider rendering services: other Location of patient: address on file Patient Identification confirmed using: Name, : Yes Telehealth method: voice only Patient verbally consented to treatment: Yes Patient verbally consented to billing insurance company: Yes Patient informed of any privacy concerns related to visit: Yes Minutes spent on Phone/Video with Pt.: 16 Assessment & Plan Assessment & Plan (1) S/P laparoscopic sleeve gastrectomy: Comment: june 2023 Code(s): Z98.84 - Bariatric surgery status Category: Surgical (2) Overweight: Code(s): E66.3 - Overweight Category: Medical Plan Pt having issues with PO intake which I think may be related to previous abnormal findings of esophagus on preop UGI. Will repeat UGI and discuss results with Dr Dalton Pt due for labs. RTC once UGI complete. Orders: Orders [place] upper GI w air Today Z98.84 - Bariatric surgery status Lipid Panel Today Z98.84 - Bariatric surgery status IRON PROFILE Today Z98.84 - Bariatric surgery status Comprehensive Met. Panel Today Z98.84 - Bariatric surgery status Vitamin B1 Today Z98.84 - Bariatric surgery status TSH reflex Free T4 Today Z98.84 - Bariatric surgery status Ferritin Today Z98.84 - Bariatric surgery status Insulin Today Z98.84 - Bariatric surgery status Hemoglobin A1c Today Z98.84 - Bariatric surgery status Complete Blood Count Auto Diff Today Z98.84 - Bariatric surgery status Vitamin B12 and Folate Today Z98.84 - Bariatric surgery status Zinc Today Z98.84 - Bariatric surgery status C Reactive Protein Today Z98.84 - Bariatric surgery status Vitamin A Today Z98.84 - Bariatric surgery status Vitamin D 25-OH Total Today Z98.84 - Bariatric surgery status
[2024-08-16 11:10] VITALS: BMI 27.8
--- OUTSIDE RECORDS SUMMARY | 2024-08-16 12:38 | XMS_ITS | Encounter Summary ---
[facility] Organization [facility] Address [address] [place] [address] Care Team Providers Care Housing Grant Analyst Name Role Phone Yue Moreira MD Primary Care Provider Un available Delmis Torres MD Unavailable Unavailable Yue Moreira MD Unavailable Unavaila ble Emily Burrell MD Primary Care Provider Unavail able [facility], Pcp Primary Care Provider UnavailAddi Ball NP Primary Care Provider Unavail able Liza Hernandez MD Unavailable [phone] Benita Quinn PA-C Unavailable [phone] Encounter Details Date Type Department Care Team Description 06/23/2018 Release of Information Medical Records [address] [place] [id number] Abstract, Provider Social History Tobacco Use Types [...] on filedocumented in this encounter Care Teams Housing Grant Analyst Relationship Specialty Start Date End Date Yue Moreira MD PCP - General Internal Medicine 06/06/1802/07 Emily Burrell MD PCP - General Internal Medicine 02/08/19 04/24/21 [facility], Pcp PCP - General Internal Medicine 04/25/21 09/02/21 Addi Holland NP PCP - General Family Practice 09/03/21 Delmis Torres MD Internal Medicine 06/06/18 Yue Moreira MD Internal Medicine 06/06/18 Liza Hernandez MD 175 [facility] [address] [place] [address] Surgeon Neurosurgery 09/09/21 Benita Quinn PA-C [address] [address] Specialist Neurosurgery 09/09/21 documented as of this encounter
--- OUTSIDE RECORDS SUMMARY | 2024-08-16 12:38 | XMS_ITS ---
Author Organization [employer] Address [address] [place] [address] Care Team Providers Care Can Coverer Name Role Phone Macario Scott Primary Care Provider [phone] REASON FOR VISIT F/UP REFILL Social History Sex Assigned At : Social History Observation Description Sex Assigned At Female Encounters Encounter Location Date Provider Diagnosis [facility] [address] [address] 06/16/2024 Macario Scott Plan Of Treatment No Information Progress Notes * EDUARDO ABREUDOB:[birth year] (73 yo F)Acc No.[id number]:06/16/2024 Progress Note Patient:?EDUARDO ABREU Provider:?Macario Scott MD :1950???Age:73 Y???Sex:Female D ate:06/16/2024 Address:[address] [place], [place] [id number] Subjective: * Chief Complaints: * ???1. F/UP REFILL. * Medical History:? Objective: * Vitals:? Assessment: Plan: * Treatment: * Images: Care Plan Details* * Electronic signature of Anoop Scott MD on 08/16/2024 at 12:38 PM EDT Sign off status: Pending * Provider:?Macario Scott MD Date:?10/2024 Generated for Tom kenny/Dania/eTransmitting on:?08/16/2024 12:38 PM EDT
--- OUTSIDE RECORDS SUMMARY | 2024-08-16 12:38 | XMS_ITS | Encounter Summary ---
Author Organization [facility] Address [address] [place] [address] Care Team Providers Care Aviation Survival Technician Name Role Phone Yue Moreira MD Primary Care Provider Un available Delmis Torres MD Unavailable Unavailable Yue Moreira MD Unavailable Unavaila ble Emily Burrell MD Primary Care Provider Unavail able [facility], [facility], Pcp Primary Care Provider UnavailAddi Ball NP Primary Care Provider Unavail able Liza Hernandez MD Unavailable [phone] Benita Quinn PA-C Unavailable [phone] Encounter Details Date Type Department Care Team Description 01/11/2019 [facility] Medical Records [address] [place] [address] Shaan Segal MD Social History Tobacco Use [...] on filedocumented in this encounter Care Teams Aviation Survival Technician Relationship Specialty Start Date End Date Yue Moreira MD PCP - General Internal Medicine 06/06/1802/07 Emily Burrell MD PCP - General Internal Medicine 02/08/19 04/24/21 [facility], [facility], Pcp PCP - General Internal Medicine 04/25/21 09/02/21 Addi Holland NP PCP - General Family Practice 09/03/21 Delmis Torres MD Internal Medicine 06/06/18 Yue Moreira MD Internal Medicine 06/06/18 Liza Hernandez MD 175 [facility] [address] [place] [address] Surgeon Neurosurgery 09/09/21 Benita Quinn PA-C [address] [address] Specialist Neurosurgery 09/09/21 documented as of this encounter
--- OUTSIDE RECORDS SUMMARY | 2024-08-16 12:38 | XMS_ITS | Encounter Summary ---
Author Organization [facility] Address [address] [place] [address] Care Team Providers Care General Maintenance Mechanic Name Role Phone Yue Moreira MD Primary Care Provider Un available Delmis Torres MD Unavailable Unavailable Yue Moreira MD Unavailable Unavaila Emily Foy MD Primary Care Provider Unavail able [facility], Pcp Primary Care Provider UnavailAddi Ball NP Primary Care Provider Unavail able Liza Hernandez MD Unavailable [phone] Benita Quinn PA-C Unavailable [phone] Encounter Details Date Type Department Care Team Description 01/20/2019 Orders Only Gastroenterology - [place] 175 [facility] [address] [place] [id number] Troy, Kim, DScPAS Dysphagia, unspecified type Social History Tobacco Use Types Packs/Day Years Used Date Smoking Tobacco: Former Smokeless Tobacco: Never Alcohol Use Standard Drinks/Week Comments No 0 (1 standard drink = 0.6 oz pur e alcohol) Sex Assigned at Date Recorded Not on file documented as of this encounter Plan of Treatment Not on file documented as of this encounter Procedures Procedure Name Priority Date/Time Associated Diagnosis Comments US SOFT TISSUE HEAD/NECK Routine 01/19/2019 Dysphagia, unspecified type documented in this encounter Results * US SOFT TISSUE HEAD/NECK (01/19/2019) Kim Simmons DScPAS ULTRASOUND documented in this encounter Visit Diagnoses Diagnosis Dysphagia, unspecified type documented in this encounter Care Teams General Maintenance Mechanic Relationship Specialty Start Date End Date Yue Moreira MD PCP - General Internal Medicine 06/06/1802/07 Emily Burrell MD PCP - General Internal Medicine 02/08/19 04/24/21 [facility], Pcp PCP - General Internal Medicine 04/25/21 09/02/21 Addi Holland NP PCP - General Family Practice 09/03/21 Delmis Torres MD Internal Medicine 06/06/18 Yue Moreira MD Internal Medicine 06/06/18 Liza Hernandez MD 175 [facility] [address] [place] [address] Surgeon Neurosurgery 09/09/21 Benita Quinn PA-C 175 [facility] [address] [place] [address] Specialist Neurosurgery 09/09/21 documented as of this encounter
--- OUTSIDE RECORDS SUMMARY | 2024-08-16 12:38 | XMS_ITS | Clinical Summary ---
Author Organization [facility] Address [address] [place] [address] Care Team Providers Care Molder Labels Name Role Phone Addi Holland NP Primary Care Provider Surgical History Surgery Date Site/Laterality Comments NECK SURGERY 2016 PROCEDURE: HISTORICAL NECK SURGERY; COMMENT: arthrodesis ANKLE SURGERY PROCEDURE: HISTORICAL ANKLE SURGERY HYSTERECTOMY PROCEDURE: HISTORICAL HYSTERECTOMY SHOULDER SURGERY PROCEDURE: HISTORICAL SHOULDER SURGERY CARPAL TUNNEL RELEASE Bilateral PROCEDURE: HISTORICAL CARPAL TUNNEL REL UPPER GASTROINTESTINAL ENDOSCOPY 08/18/2016 PROCEDURE: MD UPPER GI ENDOSCOPY PERFORMED; COMMENT: Erosive gastritis, duodenitis COLONOSCOPY 08/18/2016 PROCEDURE: HISTORICAL COLONOSCOPY; COMMENT: Internal hemorrhoids. Repeat 10 yrs Family History Medical History Relation Name Comments Arthritis Mother Breast cancer Other niece Breast cancer Sister Arthritis Relation Name Status Comments Mother Other niece Alive Sister Social History Tobacco Use Types Packs/Day Years Used Date Smoking Tobacco: Former Smokeless Tobacco: Never Alcohol Use Standard Drinks/Week Comments No 0 (1 standard drink = 0.6 oz pur e alcohol) Comments Unknown Sex and Gender Information Value Date Recorded Sex Assigned at Not on file Legal Sex Female 4:32 AM EST Gender Identity Not on file Sexual Orientation Not on file Obstetrics History Plan of Treatment Health Maintenance Due Date Last Done Comments DTaP,Tdap,and Td Vaccines (1 - Tdap) 08/19/1970 RSV Immunization Adult Patients (1 - Risk 60-74 years 1-dose series) 2011 Zoster Vaccines (2 of 2) 05/12/2019 03/17/2019 Breast Cancer Screening 06/27/2021 06/28/2019, 12/31 Cholesterol Screening (Lipid Panel) 03/15/2022 Colorectal Cancer Screening: Colonoscopy 03/15/2022 Depression Screening 03/15/2022 Falls Risk Assessment 03/15/2022 Hepatitis C Screening 03/15/2022 Social Influencers of Health Screening 03/15/2022 Hypertension/CHF/CAD Annual BMP Blood Test 03/28/2022 COVID-19 Vaccine ( season) 2023 03/21/2021, 09/03/2020, 08/13/2020 Influenza Vaccine (Season Ended) 2024 01/13/2021, 12/28/2019, 02/24/2018, Additional history exists Osteoporosis Screening (Bone Density Screening) 06/23/2027 06/22/2017 Pneumococcal Vaccine: 50+ Years Completed 12/14/2017, 06/26/2016 HIB Vaccines Aged Out No longer eligi ble based on patient's age to complete this topic HPV Vaccines Aged Out No longer eligi ble based on patient's age to complete this topic Hepatitis A Vaccines Aged Out No long er eligible based on patient's age to complete this topic Hepatitis B Vaccines Aged Out No long er eligible based on patient's age to complete this topic IPV Vaccines Aged Out No longer eligi ble based on patient's age to complete this topic MMR Vaccines Aged Out No longer eligi ble based on patient's age to complete this topic Meningococcal ACWY Vaccine Aged Out N o longer eligible based on patient's age to complete this topic Meningococcal B Vaccine Aged Out No l onger eligible based on patient's age to complete this topic RSV Immunization Patients Under 20 months Aged Out No longer eligible based on patient's age to complete this topic Varicella Vaccines Aged Out No longer eligible based on patient's age to complete this topic Procedures Procedure Name Priority Date/Time Associated Diagnosis Comments SCR MAMMO BI INCL CAD Routine 06/28/2019 8:17 AM EDT Encounter for other screening for malignant neoplasm of breast RILEY DEXA AXIAL SKELETON Routine 06/22/2017 1:56 PM EDT Asymptomatic menopausal state from Last 3 Months or Most Recently Relevant to Health Maintenance Results * SCR MAMMO BI INCL CAD (06/28/2019 8:17 AM EDT) Anatomical Region Laterality Modality Radiographic Gillian ging 02/23/2019 8:55 AM EST Narrative 06/28/2019 12:11 PM EDT This is a summary report. The complete report is available in the patient's medical record. If you cannot access the medical record, please contact the sending organization for a detailed fax or copy. Full field digital screening mammography, reviewed with CAD and compared to previous. The breast tissue is heterogeneously dense, limiting sensitivity. No suspicious mass, architectural distortion or suspicious calcifications are identified. IMPRESSION: : Dense breast tissue, limiting the sensitivity of mammography. No mammographic evidence of malignancy. BIRADS 1-Negative; N. 5 year breast cancer risk assessment 2.1 % Lifetime breast cancer risk assessment 7.4 % Breast cancer risk category Low (<15%) Procedure Note Magalis Ambrocio MD - 03/31/2022 This is a summary report. The complete report is available in thepatient's medical record. If you cannot access the medical record, pleasecontact the sending organization for a detailed fax or copy. Full field digital screening mammography, reviewed with CAD and comparedto previous. The breast tissue is heterogeneously dense, limitingsensitivity. No suspicious mass, architectural distortion or suspiciouscalcifications are identified. IMPRESSION: : Dense breast tissue, limiting the sensitivity of mammography. Nomammographic evidence of malignancy. BIRADS 1-Negative; N. 5 year breast cancer risk assessment 2.1 % Lifetime breast cancer risk assessment 7.4 % Breast cancer risk category Low (<15%) us Emily Burrell MD IMG XR PROCEDURES Final Resu lt * RILEY DEXA AXIAL SKELETON (06/22/2017 1:56 PM EDT) Anatomical Region Laterality Modality Mammography 06/22/2017 7:08 AM EDT Narrative 06/22/2017 1:56 PM EDT [facility] Diagnostic Imaging Department [address] [place] [address] Patient: ??EDUARDO ENGEL ?/Age/Sex: 1950 - 66 - F Unit#: ??[id number] ? Location/Status: ??SPDIMAM/REG CLI ? Mnemonic/Ordering Site: ??MAMDEXAAX/SPMAM Ordering Physician: ??DELMIS TORRES MD [facility] Dexa Axial Skeleton - 06/22/17729 [facility] Dexa Axial Skeleton INDICATION: POST MENOPAUSE Technique: Bone densitometry was performed utilizing dual energy x-ray absorptiometry (DEXA). The lumbar spine is evaluated in the AP projection from L1 through L4. The proximal femora are evaluated in the AP projection bilaterally. There are no prior studies available for direct comparison at this institution. Findings: AP spine: Bone mineral density: 0.983 gm/cm2 T-score: -1.5 Femoral total (mean, bilateral): Bone mineral density: 0.704 gm/cm2 T-score: -2.4 Left femoral neck: Bone mineral density: 0.618 gm/cm2 T-score: -3.0 IMPRESSION: Findings suggesting osteoporosis, placing the patient at risk for fracture. [id number] A report detailing these results has been enclosed. Dictating Physician: ??BEN FREDERICK MD Electronically Signed by: ??BEN FREDERICK MD Dic Date/Time: ??06/22/17 0336 Sign date/Time: ??06/22/17 1356 Procedure Note Ben Frederick MD - 03/31/2022 [facility] Diagnostic Imaging Department [address] [place] [address] Patient: EDUARDO ENGEL /Age/Sex: 1950 - 66 -F Unit#: [id number] Location/Status: SPDIMAM/REG CLI [facility] Ordering Physician: DELMIS TORRES MD [facility] Dexa Axial Skeleton - 06/22/17 - 729 [facility] Dexa Axial Skeleton INDICATION: POST MENOPAUSE Technique: Bone densitometry was performed utilizing dual energy x-ray absorptiometry (DEXA). The lumbar spine is evaluated in the AP projectionfrom L1 through L4. The proximal femora are evaluated in the AP projection bilaterally. There are no prior studies available for direct comparison at [facility]. Findings: AP spine: Bone mineral density: 0.983 gm/cm2 T-score: -1.5 Femoral total (mean, bilateral): Bone mineral density: 0.704 gm/cm2 T-score: -2.4 Left femoral neck: Bone mineral density: 0.618 gm/cm2 T-score: -3.0 IMPRESSION: Findings suggesting osteoporosis, placing the patient at risk forfracture. [id number] A report detailing these results has been enclosed. Dictating Physician: BEN FREDERICK MD Electronically Signed by: BEN FREDERICK MD Dic Date/Time: 06/22/17 1354 Sign date/Time: 06/22/17 1356 Delmis Torres MD IMG BI PROCEDURES Final Resu lt from Last 3 Months or Most Recently Relevant to Health Maintenance Care Teams Molder Labels Relationship Specialty Start Date End Date Addi Holland NP [address] [facility] [place] Duncan PCP - General Family Medicine 03/04/21
--- OUTSIDE RECORDS SUMMARY | 2024-08-16 12:38 | XMS_ITS | Encounter Summary ---
Author Organization [facility] Address [address] [place] [address] Care Team Providers Care Technical Customer Support Specialist Name Role Phone Delmis Torres MD Primary Care Provider Unava Yue Tovar MD Primary Care Provider Un available Delmis Torres MD Unavailable Unavailable Yue Moreira MD Unavailable Unavaila Yue Shields MD Unavailable Unavaila Emily Foy MD Primary Care Provider Unavail able [facility], Pcp Primary Care Provider UnavailAddi Ball NP Primary Care Provider Unavail able Liza Hernandez MD Unavailable [phone] Benita Quinn PA-C Unavailable [phone] Reason for Visit * Reason Onset Date Comments Prior Authorization 06/03/2018 Encounter Details Date Type Department Care Team Description 06/03/2018 Telephone Internal Medicine - [place] 175 [facility], [address] [place] [address] Delmis Torres MD Prior Authorization Social History Tobacco Use Types Packs/Day Years Used Date Smoking Tobacco: Former Smokeless Tobacco: Never Alcohol Use Standard Drinks/Week Comments No 0 (1 standard drink = 0.6 oz pur e alcohol) Sex Assigned at Date Recorded Not on file documented as of this encounter Miscellaneous Notes * Telephone Encounter - Dlemis Torres MD - 07/06/2018 1:33 PM EDT Meloxicam 7.5 mg sent * Telephone Encounter - Martha Kenyon M.A. - 07/06/2018 1:29 PM EDT You prescribed this on 06/02/18 I am not sure if this is something you wish to continue to prescribe, please advise. * Telephone Encounter - Delmis Torres MD - 06/06/2018 4:47 PM EST The medication is not on the list of the patient * Telephone Encounter - Courtney Cherry M.A. - 06/06/2018 10:55 AM EST Pharmacy said that meloxicam 7.5mg and 15mg are covered the 5mg is not Please reply back to p [id number] Prior Auth pool Courtney Cherry M.A. Regional Prior Authorizations Ext [phone] Fax: [phone] reply back to p [phone] Prior Auth pool * Telephone Encounter - Sofía Maurice - 06/03/2018 11:24 AM EST Does the patient already have this medication ? N/a Name of Medication : Vivlodex Dose of Medication : 5mg How does patient take this med? N/a What other dosage or similar medication have you tried in the past for this problem?: n/a What Pharmacy does the patient use? [facility] Diagnosis : n/a Ref #: Covermymeds [id number] documented in this encounter Plan of Treatment Not on file documented as of this encounter Visit Diagnoses Not on filedocumented in this encounter Care Teams Technical Customer Support Specialist Relationship Specialty Start Date End Date Delmis [...] Internal Medicine 06/06/18 Liza Hernandez MD 175 [facility] [address] [place] [address] Surgeon Neurosurgery 09/09/21 Benita Quinn PA-C 175 [facility] [address] [place] [address] Specialist Neurosurgery 09/09/21 documented as of this encounter
--- OUTSIDE RECORDS SUMMARY | 2024-08-16 12:38 | XMS_ITS | Encounter Summary ---
Author Organization [facility] Address [address] [place] [address] Care Team Providers Care Clinical Services Specialist Name Role Phone Delmis Torres MD Primary Care Provider Unava ilYue Ching MD Primary Care Provider Un available Delmis Torres MD Unavailable Unavailable Yue Moreira MD Unavailable Unavaila Yue Shields MD Unavailable Unavaila Emily Foy MD Primary Care Provider Unavail able [facility], Pcp Primary Care Provider UnavailAddi Ball NP Primary Care Provider Unavail able Liza Hernandez MD Unavailable [phone] Benita Quinn PA-C Unavailable [phone] Reason for Visit * Reason Comments E-prescribe Rx Request Encounter Details Date Type Department Care Team Description 04/28/2018 Refill Internal Medicine - [place] 175 [facility], [address] [place] [address] Delmis Torres MD E-prescribe Rx Request Social [...] on filedocumented in this encounter Care Teams Clinical Services Specialist Relationship Specialty Start Date End Date Delmis Torres MD PCP - General Internal Medicine 07/31/16 06/05/18 Yue Moreira MD PCP - General Internal Medicine 06/06/1802/07 Emily Burrell MD PCP - General Internal Medicine 02/08/19 04/24/21 [facility], [facility] PCP - General Internal Medicine 04/25/21 09/02/21 Addi Holland NP PCP - General Family Practice 09/03/21 Delmis Torres MD Internal Medicine 06/06/18 Yue Moreira MD Internal Medicine 07/31/16 Yue Moreira MD Internal Medicine 06/06/18 Liza Hernandez MD 175 [facility] [address] [place] [address] Surgeon Neurosurgery 09/09/21 Benita Quinn PA-C 175 [facility] [address] [place] [address] Specialist Neurosurgery 09/09/21 documented as of this encounter
--- OUTSIDE RECORDS SUMMARY | 2024-08-16 12:38 | XMS_ITS ---
Author Organization [facility] Address [address] [place] [address] Care Team Providers Care Psychiatric Aide Name Role Phone AUTUMN PADILLA Primary Care Provider [phone] REASON FOR VISIT follow up labs + MMSE Encounters Encounter Location Date Provider Diagnosis [facility] [address] [place] [address] 04/04/2024 AUTUMN BEASLEY Plan Of Treatment No Information Progress Notes * Marie BRASWELLDO B:1950 (73 yo F)Acc No.[id number]:04/04/2024 Progress Notes Patient:?Patricia BRASWELL Provider:?AUTUMN BEASLEY MD :1950???Age:73 Y???Sex:Female D ate:04/04/2024 Phone: Address:[address] [place], [place] [id number] Structured Data:Consent to r eceive voicemail/text messages? : YES Subjective: * Chief Complaints: * ???1. follow up labs + MMSE. * Medical History:? Objective: * Vitals:? Assessment: Plan: * Treatment: * Billing Information: * Visit Code:? * Procedure Codes:? * Electronic signature of AUTUMN BEASLEY MD on 08/16/2024 at 12:38 PM EDT Sign off status: Pending * Provider:?AUTUMN BEASLEY MD Da te:?04/04/2024 Generated for Printi ng/Faxing/eTransmitting on:?08/16/2024 12:38 PM EDT
--- OUTSIDE RECORDS SUMMARY | 2024-08-16 12:38 | XMS_ITS | Patient Health Record ---
Author Organization [employer]. Address [address] [place] [address] Care Team Providers Care Ward Clerk Name Role Phone Macario Scott Primary Care Provider Allergies Allergen (clinical drug ingredient) Drug/Non Drug Allergy documented on EMR Reaction Allergy Type Onset Date Status tramadol Tramadol rash Drug Allergy Active Results Component Value Reference Range Notes Cardiovascular Risk Assessme nt Reviewed date:04/26/2024 08:51:11 AM Interpretation: Performing Lab:[facility] [address] [id number], Phone - [phone], Director - Bree Notes/Report: Interpretation Note Supplemental report is available. PDF . Cardiovascular Risk Assessme nt Reviewed date:04/06/2024 12:00:17 PM Interpretation: Performing Lab:[facility] [place] [address] [place] [id number], Phone - [phone], Director - Bree Notes/Report: Interpretation Note Supplemental report is available. PDF . Lipid Panel With LDL/HDL Rat io-LC Reviewed date:04/26/2024 08:51:11 AM Interpretation: Performing Lab:[facility] [place] [address] [place] [id number], Phone - [phone], Director - Bree Notes/Report: Cholesterol, Total 232 100-199 mg/dL Triglycerides 76 0-149 mg/dL HDL Cholesterol 71 >39 mg/dL VLDL Cholesterol Koby 13 5-40 mg/dL LDL Chol Calc ([facility]) 148 0-99 mg/dL LDL/HDL Ratio 2.1 0.0-3.2 ratio Avg.Risk 3.6 3.2 3X Avg.Risk 8.0 6.1 LDL/HDL Ratio 1/2 Avg.Risk 1.0 1.5 Men Women 2X Avg.Risk 6.2 5.0 Comprehensive Metabolic Pane l 14+eGFR-LC-Q Reviewed date:04/26/2024 08:51:11 AM Interpretation: Performing Lab:[address] [id number], Phone - [phone], Director - Bree Notes/Report: Glucose 94 70-99 mg/dL BUN 14 [...] IU/L ALT (SGPT) 10 0-32 IU/L Urinalysis, Nejgwqia-EJ-Z Reviewed date:04/26/2024 08:51:11 AM Interpretation: Performing Lab:[address] [id number], Phone - [phone], Director - Bree Notes/Report: Specific [place] 1.016 1.005-1.030 pH 7.0 5.0-7.5 Urine-Color Yellow [...] Reviewed date:04/26/2024 08:51:11 AM Interpretation: Performing Lab:[facility] [address] [id number], Phone - [phone], Director - Bree Notes/Report: WBC 5.5 3.4-10.8 [...] % Immature Grans (Abs) 0.0 0.0-0.1 x10E3/uL Microalb/Creat Ratio, Timed Ur-LC Reviewed date:04/26/2024 08:51:11 AM Interpretation: Performing Lab:[facility] [address] [id number], Phone - [phone], Director - Bree Notes/Report: Ur.Collec. Interval 0 [...] T4 Reviewed date:04/26/2024 08:51:11 AM Interpretation: Performing Lab:[facility] [address] [place] [id number], Phone - [phone], Director - Bree Notes/Report: TSH 3.730 0.450-4.500 uIU/mL EKG Electrocardiogram Reviewed date:03/24/2024 02:15:49 PM Interpretation: Performing Lab: Notes/Report: Lipid Panel-Q-LC Reviewed date:03/31/2024 08:45:24 AM Interpretation: Performing Lab:[address] [id number], Phone - [phone], Director - Bree Notes/Report: Cholesterol, Total 222 100-199 mg/dL Triglycerides 65 0-149 mg/dL HDL Cholesterol 76 >39 mg/dL VLDL Cholesterol Koby 11 5-40 mg/dL LDL Chol Calc ([facility]) 135 0-99 mg/dL Comprehensive Metabolic Pane l 14+eGFR-LC-Q Reviewed date:03/31/2024 08:45:20 AM Interpretation: Performing Lab:[address] [id number], Phone - [phone], Director - Bree Notes/Report: Glucose 82 70-99 mg/dL BUN 9 [...] IU/L ALT (SGPT) 9 0-32 IU/L Urinalysis, Yfkbdqyh-EB-E Reviewed date:03/31/2024 08:45:17 AM Interpretation: [facility] [address] [place] [id number], Phone - [phone], Director - Bree Notes/Report: Specific [place] 1.020 1.005-1.030 pH 7.0 5.0-7.5 Urine-Color Yellow [...] et-LC-Q Reviewed date:03/31/2024 08:45:13 AM Interpretation: [facility]forming [facility] [address] [place] [id number], Phone - [phone], Director - Bree Notes/Report: WBC 7.0 3.4-10.8 [...] Urine-LC Reviewed date:03/31/2024 08:45:06 AM Interpretation: Performing Lab:[facility] [place], [address] [place] [id number], Phone - [phone], Director - MDShanita Notes/Report: Creatinine, Urine 122.7 Not Estab. mg/dL Albumin, Urine 12.5 Not Estab. ug/mL Alb/Creat Ratio 10 0-29 mg/g creat Moderately increased: 30 - 300 Normal: 0 - 29 Severely increased: >300 Occult Blood, Fecal, IA-LAB BRENNON Reviewed date:03/31/2024 08:45:03 AM Interpretation: Performing Lab:[facility] [place], [address] [place] [id number], Phone - [phone], Director - MDFarrier Notes/Report: Occult Blood, Fecal, IA Negative Negative TSH reflex to T4 Reviewed date:03/31/2024 08:44:59 AM Interpretation: Performing Lab:[facility] [address] [id number], Phone - [phone], Director - Bree Notes/Report: TSH 1.770 0.450-4.500 uIU/mL Occult Blood, Fecal, IA-LAB BR[facility] Reviewed date:05/04/2024 04:08:08 PM Interpretation: Performing Lab:[facility] [place], [address] [place] [address] [id number], Phone - [phone], Director - MDFarrier Notes/Report: Occult Blood, Fecal, IA Negative Negative Reason For Referral Reason If additional kathy ting is needed, please refer back to PCP. Please fax consult notes and/or results of procedure approved to [phone]. Thanks! ~Annual Eye Exam~ Diagnosis 1 Encounter for examin ation of eyes and vision without abnormal findings (Z01.00) Referral Organization [facility] Referring Provider First Name Macario Referring Provider Last Name Tyler Referring Provider Speciality General Pr actice Referred Provider [employer] Referred Provider Specialty Program Professional Referral Priority Routine Reason Please fax consul t notes and/or results of procedure approved to [phone]. Thanks! CONSULT ONLY - MANAGED CARE ~Annual Eye Exam~ Diagnosis 1 Encounter for examin ation of eyes and vision without abnormal findings (Z01.00) Referral Organization [facility] Referring Provider First Name Macario Referring Provider Last Name Tyler Referring Provider Speciality General Pr actice Referred Provider [employer] Referred Provider Specialty Program Professional Referral Priority Routine Medications Medication SIG (Take, [...] Problem Status W/U Status Risk Notes Problem 728086449 Mixed hyperlipidemia (E78.2) Active confirmed Problem [id number] Hypertensive chronic kidney disease with stage 1 through stage 4 chronic kidney disease, or unspecified chronic kidney disease (I12.9) Active confirmed Problem 422711236 Fibromyalgia (M79.7) Active confirmed Problem 741139135 Chronic insomnia (F51.04) Active confirmed Problem 951922177 Vertigo (R42) Active confirmed Problem 331159691 Acquired hypothyroidism (E03.9) Active confirmed Problem 34800964 Migraine syndrom e (G43.909) Active confirmed Problem 573306745 CKD (chronic kidney disease), stage II (N18.2) Active confirmed GFR 75 as per lab results from Problem 2994423 Former smoker (Z87.891) Active confirmed Problem 64841054 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) Active confirmed Problem 175073489 Severe persisten t asthma without complication (J45.50) [...] N/A Encounters Encounter Location Date Provider Diagnosis [facility] [address] [address] 03/24/2024 [facility] [address] [facility] [address] [place] [address] 03/24/2024 [facility] [address] [facility] [address] [place] [address] 03/31/2024 Macario Scott [facility] [address] [address] 04/24/2024 Macario Scott Essential (primary) hypertension I10 ; Mixed hyperlipidemia E78.2 and Acquired hypothyroidism E03.9 [facility] [address] [address] 03/24/2024 Macario Scott Essential (primary) hypertension I10 [...] eyes and vision without abnormal findings Z01.[address] [address] 03/31/2024 Macario Scott Hypertensive chronic kidney disease [...] of 25.0 to 25.9 in adult Z68.25 [facility] [address] [address] 05/02/2024 Macario Scott Severe persistent asthma without [...] Comprehensive Metabolic Panel 14+eGFR-LC -Q 05/02/2024 Urinalysis, Nsiwmesy-CX-X 05/02/2024 CBC With Differential/Cnmiqncx-WZ-Z 04/13 Mammo SCREENING MAMMO DIGITAL, SOHEILA 05/02 Mammo SCREENING MAMMO DIGITAL, SOHEILA 03/24 CHEST X-RAY (PA/LATERAL) 05/02/2024 CHEST X-RAY (PA/LATERAL) 03/24/2024 Insurance Providers Payer Name Payer Address Payer Phone Subscriber Number Group Number Insured Name Patient Relationship to Insured Coverage Start Date Coverage End Date [facility] [address] [address] [place] [id number] [place], [place] Self - patient is the insured Medical (General) History Medical History History ICD Code hyperension asthma sinusitis migraines thyroid Surgical History Surgery Date(Month/Year) hystrectomy total 1996 1970,1971 right leg n/a nose n/a carpal tunel on both hands n/a
--- OUTSIDE RECORDS SUMMARY | 2024-08-16 12:38 | XMS_ITS | Encounter Summary ---
Author Organization [facility] Address [address] [place] [address] Care Team Providers Care Film Sound Engineer Name Role Phone Delmis Torres MD Unavailable Unavailable Yue Moreira MD Unavailable Unavaila ble Emily Burrell MD Primary Care Provider Unavail able [facility], Pcp Primary Care Provider UnavailAddi Ball LAP REGULATOR Primary Care Provider Unavail able Liza Hernandez MD Unavailable [phone] Benita Quinn PA-C Unavailable [phone] Encounter Details Date Type Department Care Team Description 09/22/2019 Keno Dealer Report Medical Records [address] [place] [id number] [place] [address] Urgent Social History Tobacco Use Types Packs/Day [...] on filedocumented in this encounter Care Teams Film Sound Engineer Relationship Specialty Start Date End Date Emily Burrell MD PCP - General Internal Medicine 02/08/19 04/24/21 [facility], Pcp PCP - General Internal Medicine 04/25/21 09/02/21 Addi Holland NP PCP - General Family Practice 09/03/21 Delmis Torres MD Internal Medicine 06/06/18 Yue Moreira MD Internal Medicine 06/06/18 Liza Hernandez MD 175 [facility] [address] [place] [address] Surgeon Neurosurgery 09/09/21 Benita Quinn PA-C [address] [address] Specialist Neurosurgery 09/09/21 documented as of this encounter
--- OUTSIDE RECORDS SUMMARY | 2024-08-16 12:38 | XMS_ITS | Encounter Summary ---
Author Organization [facility] Address [address] [place] [address] Care Team Providers Care Neon Installer Name Role Phone Delmis Torres MD Unavailable Unavailable Yue Moreira MD Unavailable Unavaila Emily Foy MD Primary Care Provider Unavail able [facility], Pcp Primary Care Provider UnavailAddi Ball NP Primary Care Provider Unavail able Liza Hernandez MD Unavailable [phone] Benita Quinn PA-C Unavailable [phone] Reason for Visit * Reason Onset Date Comments Faxed Order 02/08/2019 Encounter Details Date Type Department Care Team Description 02/08/2019 Telephone Adult Medicine [address] [address] Emily Burrell MD Faxed Order Social History [...] review, sign, date, and fax back to [phone]. documented in this encounter Plan of Treatment Not on file documented as of this encounter Visit Diagnoses Not on filedocumented in this encounter Care Teams Neon Installer Relationship Specialty Start Date End Date Emily Burrell MD PCP - General Internal Medicine 02/08/19 04/24/21 [facility], Pcp PCP - General Internal Medicine 04/25/21 09/02/21 Addi Holland NP PCP - General Family Practice 09/03/21 Delmis Torres MD Internal Medicine 06/06/18 Yue Moreira MD Internal Medicine 06/06/18 Liza Hernandez MD [address] [id number] Surgeon Neurosurgery 09/09/21 Benita Quinn PA-C [address] [id number] Specialist Neurosurgery 09/09/21 documented as of this encounter
--- OUTSIDE RECORDS SUMMARY | 2024-08-16 12:38 | XMS_ITS | Encounter Summary ---
Author Organization [facility] Address [address] [place] [address] Care Team Providers Care Preassembler And Inspector Name Role Phone Delmis Torres MD Unavailable Unavailable Yue Moreira MD Unavailable Unavaila ble Emily Burrell MD Primary Care Provider Unavail able [facility], Pcp Primary Care Provider UnavailAddi Ball NP Primary Care Provider Unavail able Liza Hernandez MD Unavailable [phone] Benita Quinn PA-C Unavailable Encounter Details Date Type Department Care Team Description 05/23/2019 Leasing Property Manager Report Medical Records [address] [place] [address] Benita Quinn PA-C 175 [facility] [address] [place] [address] Social History Tobacco Use Types Packs/Day Years [...] on filedocumented in this encounter Care Teams Preassembler And Inspector Relationship Specialty Start Date End Date Emily Burrell MD PCP - General Internal Medicine 02/08/19 04/24/21 [facility], Pcp PCP - General Internal Medicine 04/25/21 09/02/21 Addi Holland NP PCP - General Family Practice 09/03/21 Delmis Torres MD Internal Medicine 06/06/18 Yue Moreira MD Internal Medicine 06/06/18 Liza Hernandez MD 175 [facility] [address] [place] [address] Surgeon Neurosurgery 09/09/21 Benita Quinn PA-C [address] [address] Specialist Neurosurgery 09/09/21 documented as of this encounter
--- OUTSIDE RECORDS SUMMARY | 2024-08-16 12:38 | XMS_ITS | Encounter Summary ---
Author Organization [facility] Address [address] [place] [address] Care Team Providers Care Refinery Operator Vapor Recovery Unit Name Role Phone Delmis Torres MD Unavailable Unavailable Yue Moreira MD Unavailable Unavaila Emily Foy MD Primary Care Provider Unavail able [facility], Pcp Primary Care Provider UnavailAddi Ball NP Primary Care Provider Unavail able Liza Hernandez MD Unavailable [phone] Benita Quinn PA-C Unavailable [phone] Encounter Details Date Type Department Care Team Description 07/31/2020 Hospital Medical Records [address] [place] [address] Jose Maria Vela MD [address] [place] [address] Social History Tobacco Use Types Packs/Day Years [...] AM EDT documented as of this encounter Plan of Treatment Not on file documented as of this encounter Visit Diagnoses Not on filedocumented in this encounter Care Teams Refinery Operator Vapor Recovery Unit Relationship Specialty Start Date End Date Emily Burrell MD PCP - General Internal Medicine 02/08/19 04/24/21 [facility], Pcp PCP - General Internal Medicine 04/25/21 09/02/21 Addi Holland NP PCP - General Family Practice 09/03/21 Delmis Torres MD Internal Medicine 06/06/18 Yue Moreira MD Internal Medicine 06/06/18 Liza Hernandez MD [address] [address] Surgeon Neurosurgery 09/09/21 Benita Quinn PA-C [address] [address] Specialist Neurosurgery 09/09/21 documented as of this encounter
--- OUTSIDE RECORDS SUMMARY | 2024-08-16 12:38 | XMS_ITS | Encounter Summary ---
Author Organization [facility] Address [address] [place] [address] Care Team Providers Care Dip Guider Stoves Name Role Phone Yue Moreira MD Primary Care Provider Un available Delmis Torres MD Unavailable Unavailable Yue Moreira MD Unavailable Unavaila Emily Foy MD Primary Care Provider Unavail able [facility], Pcp Primary Care Provider UnavailAddi Ball NP Primary Care Provider Unavail able Liza Hernandez MD Unavailable [phone] Benita Quinn PA-C Unavailable [phone] Reason for Visit * Reason Onset Date Comments radiology 01/18/2019 Encounter Details Date Type Department Care Team Description 01/18/2019 Telephone Gastroenterology - [place] 175 [facility] [address] [place] [phone] Kim Simmons DScPAS radiology Social History Tobacco [...] Simmons PA-C - 01/18/2019 11:37 AM EDT [facility] does not have that so I will [...] for call back: US SOFT TISSUE HEAD/NECK [[id number]] ? (Order #: [id number]) Needs order to saythyroid Caller offered to speak with the nurse for assistance: YES Response: Patient is at xray right now and it needs to be sent Downstairs so they can do the test documented in this encounter Plan of Treatment Not on file documented as of this encounter Visit Diagnoses Not on filedocumented in this encounter Care Teams Dip Guider Stoves Relationship Specialty Start Date End Date Yue Moreira MD PCP - General Internal Medicine 06/06/1802/07 Emily Burrell MD PCP - General Internal Medicine 02/08/19 04/24/21 [facility], Pcp PCP - General Internal Medicine 04/25/21 09/02/21 Addi Holland NP PCP - General Family Practice 09/03/21 Delmis Torres MD Internal Medicine 06/06/18 Yue Moreira MD Internal Medicine 06/06/18 Liza Hernandez MD 175 [facility] [address] [place] [address] Surgeon Neurosurgery 09/09/21 Benita Quinn PA-C [address] [address] Specialist Neurosurgery 09/09/21 documented as of this encounter
--- OUTSIDE RECORDS SUMMARY | 2024-08-16 12:38 | XMS_ITS ---
Author Organization [facility] Address [address] [place] [address] Care Team Providers Care Toxicology Supervisor Name Role Phone AUTUMN PADILLA Primary Care Provider REASON FOR VISIT follow up labs Encounters Encounter Location Date Provider Diagnosis [facility] [address] [place] [address] 04/04/2024 AUTUMN BEASLEY Plan Of Treatment No Information Progress Notes * Marie BRASWELLDO B:1950 (73 yo F)Acc No.[id number]:04/04/2024 Patient:?Patricia BRASWELL Provider:?AUTUMN BEASLEY MD :1950???Age:73 Y???Sex:Female D ate:04/04/2024 Phone: Address:[address] [place], [place] [address] Structured Data:Consent to r eceive voicemail/text messages? : YES Subjective: * Chief Complaints: * ???1. Follow up labs. * Medical History:? Objective: * Vitals:? Assessment: Plan: * Treatment: * Billing Information: * Visit Code:? * Procedure Codes:? * Electronic signature of AUTUMN BEASLEY MD on 08/16/2024 at 12:37 PM EDT Sign off status: Pending * Provider:?AUTUMN BEASLEY MD Da te:?04/04/2024 Generated for Printi ng/Faxing/eTransmitting on:?08/16/2024 12:37 PM EDT
--- OUTSIDE RECORDS SUMMARY | 2024-08-16 12:38 | XMS_ITS | Encounter Summary ---
Author Organization [employer] [facility] Address [address] [place] [address] Care Team Providers Care Hydraulic Governor Assembler Name Role Phone Delmis Torres MD Unavailable Unavailable Yue Moreira MD Unavailable Unavaila Emily Foy MD Primary Care Provider Unavail able [facility], Pcp Primary Care Provider UnavailAdid Ball NP Primary Care Provider Unavail able Liza Hernandez MD Unavailable [phone] Benita Quinn PA-C Unavailable [phone] Reason for Visit * Reason Comments E-prescribe Rx Request Encounter Details Date Type Department Care Team Description 01/14/2021 Refill Gastroenterology - [place] 175 [facility] [address] [place] [phone] Kim Simmons DScPAS E-prescribe Rx Request Social History Tobacco Use Types Packs/Day Years Used Date Smoking Tobacco: Former Smokeless Tobacco: Never Alcohol Use Standard Drinks/Week Comments No 0 (1 standard drink = 0.6 oz pur e alcohol) Sex Assigned at Date Recorded Not on file documented as of this encounter Miscellaneous Notes * Telephone Encounter - Alondra Stewart M.A. - 01/14/2021 2:41 PM EDT Last office visit : 08/14/2020 Next office visit not scheduled documented in this encounter Plan of Treatment Not on file documented as of this encounter Visit Diagnoses Not on filedocumented in this encounter Care Teams Hydraulic Governor Assembler Relationship Specialty Start Date End Date Emily Burrell MD PCP - General Internal Medicine 02/08/19 04/24/21 [facility], Pcp PCP - General Internal Medicine 04/25/21 09/02/21 Addi Holland NP PCP - General Family Practice 09/03/21 Delmis Torres MD Internal Medicine 06/06/18 Yue Moreira MD Internal Medicine 06/06/18 Liza Hernandez MD 175 [facility] [address] [place] [id number] Surgeon Neurosurgery 09/09/21 Benita Quinn PA-C [address] [address] Specialist Neurosurgery 09/09/21 documented as of this encounter
--- OUTSIDE RECORDS SUMMARY | 2024-08-16 12:39 | XMS_ITS | Encounter Summary ---
Author Organization [facility] Address [address] [place] [address] Care Team Providers Care Physician Intensivist Name Role Phone Delmis Torres MD Unavailable Unavailable Yue Moreira MD Unavailable Unavaila Emily Foy MD Primary Care Provider Unavail able [facility], Pcp Primary Care Provider UnavailAddi Ball NP Primary Care Provider Unavail able Liza Hernandez MD Unavailable [phone] Benita Quinn PA-C Unavailable [phone] Encounter Details Date Type Department Care Team Description 08/02/2020 Orders Only Medical Records [address] [place] [address] Jose Maria Vela MD [address] [place] [address] Social History Tobacco Use Types Packs/Day Years [...] on filedocumented in this encounter Care Teams Physician Intensivist Relationship Specialty Start Date End Date Emily Burrell MD PCP - General Internal Medicine 02/08/19 04/24/21 [facility], Pcp PCP - General Internal Medicine 04/25/21 09/02/21 Addi Holland NP PCP - General Family Practice 09/03/21 Delmis Torres MD Internal Medicine 06/06/18 Yue Moreira MD Internal Medicine 06/06/18 Liza Hernandez MD [address] [address] Surgeon Neurosurgery 09/09/21 Benita Quinn PA-C [address] [address] Specialist Neurosurgery 09/09/21 documented as of this encounter
--- OUTSIDE RECORDS SUMMARY | 2024-08-16 12:39 | XMS_ITS | Encounter Summary ---
Author Organization [facility] Address [address] [place] [address] Care Team Providers Care Peanut Blancher Name Role Phone Delmis Torres MD Primary Care Provider Unava ilYue Ching MD Primary Care Provider Un available Delmis Torres MD Unavailable Unavailable Yue Moreira MD Unavailable Unavaila Yue Shields MD Unavailable Unavaila Emily Foy MD Primary Care Provider Unavail able [facility], Pcp Primary Care Provider UnavailAddi Ball NP Primary Care Provider Unavail able Liza Hernandez MD Unavailable [phone] Benita Quinn PA-C Unavailable [phone] Encounter Details Date Type Department Care Team Description 04/27/2018 Refill Internal Medicine - [place] 175 [facility], [address] [place] [address] Delmis Torres MD Social History Tobacco Use [...] on filedocumented in this encounter Care Teams Peanut Blancher Relationship Specialty Start Date End Date Delmis [...] Internal Medicine 06/06/18 Liza Hernandez MD 175 [facility] [address] [place] [address] Surgeon Neurosurgery 09/09/21 Benita Quinn PA-C 175 [facility] [address] [place] [address] Specialist Neurosurgery 09/09/21 documented as of this encounter
--- OUTSIDE RECORDS SUMMARY | 2024-08-16 12:39 | XMS_ITS | Encounter Summary ---
Author Organization [facility] Address [address] [place] [address] Care Team Providers Care Council On Aging Director Name Role Phone Yue Moreira MD Primary Care Provider Un available Delmis Torres MD Unavailable Unavailable Yue Moreira MD Unavailable Unavaila Emily Foy MD Primary Care Provider Unavail able [facility], Pcp Primary Care Provider UnavailAddi Ball NP Primary Care Provider Unavail able Liza Hernandez MD Unavailable [phone] Benita Quinn PA-C Unavailable [phone] Reason for Visit * Reason Comments E-prescribe Rx Request Encounter Details Date Type Department Care Team Description 08/19/2018 Refill Gastroenterology - [place] 175 [facility] [address] [place] [address] Yue Moreira MD E-prescribe Rx Request Social [...] N/A Patients current insurance carrier is: Payor: [facility] MCR / Plan: [facility] $0 [facility] [id number] / Product Type: HMO [id number] documented in this encounter Plan of Treatment Not on file documented as of this encounter Visit Diagnoses Not on filedocumented in this encounter Care Teams Council On Aging Director Relationship Specialty Start Date End Date Yue Moreira MD PCP - General Internal Medicine 06/06/1802/07 Emily Burrell MD PCP - General Internal Medicine 02/08/19 04/24/21 Katelynn Limon PCP - General Internal Medicine 04/25/21 09/02/21 Addi Holland NP PCP - General Family Practice 09/03/21 Delmis Torres MD Internal Medicine 06/06/18 Yue Moreira MD Internal Medicine 06/06/18 Liza Hernandez MD [address] [address] Surgeon Neurosurgery 09/09/21 Benita Quinn PA-C [address] [address] Specialist Neurosurgery 09/09/21 documented as of this encounter
--- OUTSIDE RECORDS SUMMARY | 2024-08-16 12:39 | XMS_ITS ---
Author Organization [facility] Address [address] [place] [address] Care Team Providers Care Travel Information Center Supervisor Name Role Phone Tyler Macario Primary Care Provider Allergies Allergen (clinical drug ingredient) Drug/Non Drug Allergy documented on EMR Reaction Allergy Type Onset Date Status tramadol Tramadol rash Drug Allergy Active Results Component Value Reference Range Notes Occult Blood, Fecal, IA-LAB BRENNON Reviewed date:05/04/2024 04:08:08 PM Interpretation: Performing Lab:[facility] [address] [id number], Phone - [phone], Director - Bree Notes/Report: Occult Blood, Fecal, IA Negative Negative Reason For Referral Reason Please fax consul t notes and/or results of procedure approved to [phone]. Thanks! CONSULT ONLY - MANAGED CARE ~Annual Eye Exam~ Diagnosis 1 Encounter for examin ation of eyes and vision without abnormal findings (Z01.00) Referral Organization [facility] Referring Provider First Name Macario Referring Provider Last Name Tyler Referring Provider Speciality General Pr actice Referred Provider [facility] Referred Provider Specialty Credit Historian Referral Priority Routine REASON FOR VISIT Established [...] No Points 0 Interpretation Negative Vital Signs Height 5ft2in in 05/02/2024 Weight 140 lbs 05/02/2024 BMI 25.6 kg/m2 05/02/2024 Temperature 97 degrees Fahrenheit 05/02/2024 Blood pressure systolic 139 mm Hg 05/02/19 25 Blood pressure diastolic 82 mm Hg 025 Respiratory Rate 19 /min 05/02/2024 Oximetry 99 % 05/02/2024 Procedures Procedure Date Ordered Date Performed Result Body Sit e SPIROMETRY 05/02/2024 N/A Encounters Encounter Location Date Provider Diagnosis [address] [address] 05/02/2024 Macario Scott Severe persistent asthma without [...] Comprehensive Metabolic Panel 14+eGFR-LC -Q 05/02/2024 Urinalysis, Ebolebti-NN-L 05/02/2024 CBC With Differential/Aczntcjn-QF-M 04/13 Mammo SCREENING MAMMO DIGITAL, SOHEILA 05/02 CHEST X-RAY (PA/LATERAL) 05/02/2024 Future Test Test Name Order Date Lipid Panel With LDL/HDL Ratio-LC 2024 Comprehensive Metabolic Panel 14+eGFR-LC -Q 09/25/2024 Urinalysis, Bvbzbhbj-HT-M 09/25/2024 CBC With Differential/Fdgxgbtq-EL-R 09/10 Referrals Referral Date Details 05/02/2024 05/02/2024, Pleas e fax consult notes and/or results of procedure approved to [phone]. Thanks! CONSULT ONLY - MANAGED CARE ~Annual Eye Exam~, [facility] Next Appt Details Follow Up: 05/25/2024 medica l refill., Reason: 10/02/2024 medical refill Progress Notes * EDUARDO ABREUDOB:[birth year] (73 yo F)Acc No.[id number]:05/02/2024 Progress Note Patient:?EDUARDO ABREU Provider:?Macario Scott MD :1950???Age:73 Y???Sex:Female D ate:05/02/2024 Address:[address] [place] [address] Subjective: * Chief Complaints: * ???Established patient [...] between periods.?Denies?Vaginal discharge/itching.? * Medical History:? 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 - mg/dL ?Microalb/Photographic Equipment Inspector. Ratio 4.5 0.0-30.0 - ug/mg creat ?Microalbumin, [...] - ?Protein Negative Negative/Tra ce - ?Specific Grant 1.016 1.0 05-1.030 - ?pH 7.0 5.0-7.5 - ?Urine-Color Yellow Yellow - ?WBC Esterase Negative Negativ e - ?Glucose Negative Negative - ?Ketones Negative Negative - ?Occult Blood Negative Negativ e - ?Urobilinogen,Semi-Qn 0.2 0.2-1.0 - mg/dL ?Nitrite, Urine Negative Negat leti - ?Bilirubin Negative Negative - ?Appearance Cloudy A Clear - ???Lab:CBC With Differential /Wmuyruyu-CW-T (Order Date - 04/24/2024) (Collection Date & [...] sounds present, soft, nontender, nondistended.?RECTAL EXAM:?FOBT performed. Display Artist present Mihaela.?BACK:?normal exam of spine, FROM. no [...] day.?LAB: Comprehensive Metabolic Panel 14+eGFR-LC-Q ?LAB: Urinalysis, Arjmpdmm-MR-Y ?LAB: CBC With Differential/Gyeurzsc-QY-S ?LAB: CBC With Differential/Sowskjts-PT-K (Ordered for 09/25/2024) ?LAB: Comprehensive Metabolic Panel 14+eGFR-LC-Q (Ordered for 09/25/2024) ?LAB: Lipid Panel With LDL/HDL Ratio-LC (Ordered for 09/25/2024) ?LAB: Urinalysis, Xplluizk-HO-V (Ordered for 09/25/2024) ?Imaging: EKG Electrocardiogram ?Imaging: [...] eyes and vision without abnormal findings? Referral To:[employer] [facility]??Credit Historian ?Reason: Please fax consult notes and/or results of procedure approved to [phone]. Thanks! CONSULT ONLY - MANAGED CARE ~Annual Eye Exam~ 12.?Encounter for screening mammogram for breast cancer?Imaging: Mammo SCREENING MAMMO DIGITAL, SOHEILA 13.?Encounter for fecal immu nochemical test screening?LAB: Occult Blood, Fecal, IA-LAB BRENNON (Collection Date & Time - 05/02/2024 12:54 PM) 14.?Screening for osteoporos is?Imaging: DEXA Hip and Spine * Procedure Codes:?3075F SYST BP GE 130 - 139MM PA5093V DIAST BP 80-89 MM DD4446E AMNT PAIN NOTED NONE [id number] ADVNC CARE PLAN TLK QKQR1086I MED LIST DOCD IN NDMM8702J RVW MEDS BY RX/DR IN DEPK3855Y FXNL STATUS [id number] STATIN THERAPY/CURRENTLY BBK8601Z FALL RISK ASSESSMENT VWXC0133R SCREEN DEPRESSION BEIJAZMGP1248G NEG MICROALBUMINURIA WYOF7213 BMI<30 AND >=22 CALC & DOCU * [...] Scott MD Date:?04/13 Generated for Tom kenny/Dania/eTashishsmitting on:?08/16/2024 12:38 PM EDT History and Physical Notes * [...] Referred Provider Not es 05/02/2024 Macario Scott [facility] Please fax consult notes and/or results of procedure approved to [phone]. Thanks! CONSULT ONLY - MANAGED CARE ~Annual Eye Exam~
--- OUTSIDE RECORDS SUMMARY | 2024-08-16 12:39 | XMS_ITS | Patient Health Record ---
Author Organization [facility] Address [address] [place] [address] Care Team Providers Care Rehabilitation Consultant Name Role Phone AUTUMN PADILLA Primary Care Provider [phone] Allergies Allergen (clinical drug ingredient) Drug/Non Drug [...] 90 days Active Vitamin A 3 MG (28304 UT) 1 capsule with food or milk [...] Problem Status W/U Status Risk Notes Problem 9441815 Opioid abuse, uncomplicated (F11.10) Active confirmed Acetaminophen -codeine 300 mg 1 tab since 11/2023 Consult notes 02/29/2024 Medical Record page 05/26 Problem 96236092 Major depressive disorder, single episode, 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) Active confirmed PHQ-9 score 20 Severe Depression Problem Insomnia (417936511) Insomnia (G47.00) Active confirmed Problem Osteoporosis (20186738) Osteoporosis (M81.0) Active confirmed Problem Moderate recurrent major depression (00728964) 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. [facility] [address] [place] [address] 01/28/[address] [facility]. [facility] [address] [place] [address] 02/29/2024 AUTUMN BEASLEY Encounter for general adult [...] possible duration of sleep aides, and discussed superintendent marine oil terminal side effects of these. 02/29/2024 Osteoporosis (ICD-10 [...] Order Date CBC with Differential & Platelets (05811 9) [facility] 02/29/2024 TSH & Free T4 (793161) [facility] UA Urinalysis with Reflex to Culture (23 0523) [facility] 02/29/2024 CMP Comp. Metabolic Panel (14) (206312) [facility] 02/29/2024 Lipid Panel (414689) [facility] 02/29/2024 Hemoglobin A1c 02/29/2024 Insurance Providers Payer Name Payer Address Payer Phone Subscriber Number Group Number Insured Name Patient Relationship to Insured Coverage Start Date Coverage End Date [facility] [address] [place] [address] [id number] Marie Engel Self - patient is the insured 4 4 Medical (General) History Medical History History ICD Code Insomnia Esophageal reflux oropharyngeal dyspnea Gastritis migraine dyslipidemia hypothyroidism osteoporosis anxiety essential hypertension Surgical History Surgery Date(Month/Year) shoulder surgery c section x2 hysterectomy nasal surgery carpal tunnel leg surgery left x2 NECK SURGERY
--- OUTSIDE RECORDS SUMMARY | 2024-08-16 12:39 | XMS_ITS | Encounter Summary ---
Author Organization [facility] Address [address] [place] [address] Care Team Providers Care Mail Deliverer Name Role Phone Yue Moreira MD Primary Care Provider Un available Delmis Torres MD Unavailable Unavailable Yue Moreira MD Unavailable Unavaila Emily Foy MD Primary Care Provider Unavail able [facility], Pcp Primary Care Provider UnavailAddi Ball NP Primary Care Provider Unavail able Liza Hernandez MD Unavailable [phone] Benita Quinn PA-C Unavailable [phone] Reason for Visit * Reason Comments E-prescribe Rx Request Encounter Details Date Type Department Care Team Description 08/19/2018 Refill Internal Medicine - [place] 175 [facility], [address] [place] [address] Yue Moreira MD E-prescribe Rx Request Social [...] N/A Patients current insurance carrier is: [facility] / Plan: [employer] $0 [place] [id number] / Product Type: [employer] [id number] documented in this encounter Plan of Treatment Not on file documented as of this encounter Visit Diagnoses Not on filedocumented in this encounter Care Teams Mail Deliverer Relationship Specialty Start Date End Date Yue Moreira MD PCP - General Internal Medicine 06/06/1802/07 Emily Burrell MD PCP - General Internal Medicine 02/08/19 04/24/21 [facility], Pcp PCP - General Internal Medicine 04/25/21 09/02/21 Addi Holland NP PCP - General Family Practice 09/03/21 Delmis Torres MD Internal Medicine 06/06/18 Yue Moreira MD Internal Medicine 06/06/18 Liza Hernandez MD 175 [facility] [address] [place] [address] Surgeon Neurosurgery 09/09/21 Benita Quinn PA-C 175 [facility] [address] [place] [address] Specialist Neurosurgery 09/09/21 documented as of this encounter
--- OUTSIDE RECORDS SUMMARY | 2024-08-16 12:39 | XMS_ITS | Encounter Summary ---
Author Organization [facility] Address [address] [place] [address] Care Team Providers Care Chartered Accountant Name Role Phone Delmis Torres MD Unavailable Unavailable Yue Moreira MD Unavailable Unavaila Addi Klein NP Primary Care Provider Unavail able Liza Hernandez MD Unavailable [phone] Benita Quinn PA-C Unavailable [phone] Reason for Visit * Reason Onset Date Comments REFERRAL 09/03/2021 Bariatric consul t w/Dr. Marroquin Encounter Details Date Type Department Care Team Description 09/03/2021 Telephone General Surgery - [place] 175 [facility] [address] [place] [address] Enedelia Marroquin MD [address] [place] [address] [address] [place], [place] [id number] REFERRAL (Bariatric consult w/Dr. Marroquin ) Social History Tobacco Use Types Packs/Day Years Used Date Smoking Tobacco: Former Smokeless Tobacco: Never Alcohol Use Standard Drinks/Week Comments No 0 (1 standard drink = 0.6 oz pur e alcohol) Sex Assigned at Date Recorded Not on file documented as of this encounter Miscellaneous Notes * Telephone Encounter - Valentina Borgesr - 09/03/2021 1:38 PM EDT Patient called wanting to make appointment for a Bariatric consult. Looking at records that were sent-It is all focused on RT shoulder pain and back pain. Informed patient that if she is looking for surgical weight loss we will need records our referral to indicate that. She stated that she will call PCP back and advise. documented in this encounter Plan of Treatment Not on file documented as of this encounter Visit Diagnoses Not on filedocumented in this encounter Care Teams Chartered Accountant Relationship Specialty Start Date End Date Addi Holland NP PCP - General Family Practice 09/03/21 Delmis Torres MD Internal Medicine 06/06/18 Yue Moreira MD Internal Medicine 06/06/18 Liza Hernandez MD [address] [address] Surgeon Neurosurgery 09/09/21 Benita Quinn PA-C [address] [address] Specialist Neurosurgery 09/09/21 documented as of this encounter
--- OUTSIDE RECORDS SUMMARY | 2024-08-16 12:39 | XMS_ITS ---
Author Organization [facility] Address [address] [place] [address] Care Team Providers Care Correspondence Transcriber Name Role Phone AUTUMN PADILLA Primary Care Provider [phone] REASON FOR VISIT follow up labs Encounters Encounter Location Date Provider Diagnosis [facility] [address] [place] [address] 04/04/2024 AUTUMN BEASLEY Plan Of Treatment No Information Progress Notes * Marie BRASWELLDO B:1950 (73 yo F)Acc No.[id number]:04/04/2024 Patient:?Patricia BRASWELL Provider:?AUTUMN BEASLEY MD :1950???Age:73 Y???Sex:Female D ate:04/04/2024 Phone: Address:[address] [place], [place] [id number] Structured Data:Consent to r eceive voicemail/text messages? : YES Subjective: * Chief Complaints: * ???1. Follow up labs. * Medical History:? Objective: * Vitals:? Assessment: Plan: * Treatment: * Billing Information: * Visit Code:? * Procedure Codes:? * Electronic signature of AUTUMN BEASLEY MD on 08/16/2024 at 12:39 PM EDT Sign off status: Pending * Provider:?AUTUMN BEASLEY MD Da te:?04/04/2024 Generated for Printi ng/Faxing/eTransmitting on:?08/16/2024 12:39 PM EDT
--- OUTSIDE RECORDS SUMMARY | 2024-08-16 12:39 | XMS_ITS ---
Author Organization [facility] Address [address] [place] [address] Care Team Providers Care Roadway Technician Name Role Phone Macario Scott Primary Care Provider [phone] REASON FOR VISIT SPIROMETRY Social History Sex Assigned At : Social History Observation Description Sex Assigned At Female Encounters Encounter Location Date Provider Diagnosis [facility] [address] [address] 06/16/2024 Macario Scott Plan Of Treatment No Information Progress Notes * EDUARDO ABREUDOB:[birth year] (73 yo F)Acc No.[id number]:06/16/2024 Progress Note Patient:?EDUARDO ABREU Provider:?Macario Scott MD :1950???Age:73 Y???Sex:Female D ate:06/16/2024 Address:[address] [place] [address] Subjective: * Chief Complaints: * ???1. SPIROMETRY. * Medical History:? Objective: * Vitals:? Assessment: Plan: * Treatment: * Images: * Electronic signature of Anoop Scott MD on 08/16/2024 at 12:38 PM EDT Sign off status: Pending * Provider:?Macario Scott MD Date:?10/2024 Generated for Tom kenny/Dania/eTransmitting on:?08/16/2024 12:38 PM EDT
--- OUTSIDE RECORDS SUMMARY | 2024-08-16 12:39 | XMS_ITS | Encounter Summary ---
Author Organization [facility] Address [address] [place] [address] Care Team Providers Care Cigarette Paper Tester Name Role Phone Yue Moreira MD Primary Care Provider Un available Delmis Torres MD Unavailable Unavailable Yue Moreira MD Unavailable Unavaila Emily Foy MD Primary Care Provider Unavail able [facility], Pcp Primary Care Provider UnavailAddi Ball NP Primary Care Provider Unavail able Liza Hernandez MD Unavailable [phone] Benita Quinn PA-C Unavailable [phone] Reason for Visit * Reason Comments E-prescribe Rx Request Encounter Details Date Type Department Care Team Description 11/24/2018 Refill Gastroenterology [facility] 175 [facility] [address] [place] [address] Kim Simmons DScPAS E-prescribe Rx Request Social [...] on filedocumented in this encounter Care Teams Cigarette Paper Tester Relationship Specialty Start Date End Date Yue Moreira MD PCP - General Internal Medicine 06/06/1802/07 Emily Burrell MD PCP - General Internal Medicine 02/08/19 04/24/21 [facility], Pcp PCP - General Internal Medicine 04/25/21 09/02/21 Addi Holland NP PCP - General Family Practice 09/03/21 Delmis Torres MD Internal Medicine 06/06/18 Yue Moreira MD Internal Medicine 06/06/18 Liza Hernandez MD [address] [address] Surgeon Neurosurgery 09/09/21 Benita Quinn PA-C [address] [address] Specialist Neurosurgery 09/09/21 documented as of this encounter
--- OUTSIDE RECORDS SUMMARY | 2024-08-16 12:39 | XMS_ITS | Encounter Summary ---
Author Organization [facility] Address [address] [place] [address] Care Team Providers Care Doctor Podiatric Medicine Name Role Phone Delmis Torres MD Primary Care Provider Unava ilYue Ching MD Primary Care Provider Un available Delmis Torres MD Unavailable Unavailable Yue Moreira MD Unavailable Unavaila Yue Shields MD Unavailable Unavaila Emily oFy MD Primary Care Provider Unavail able [facility], Pcp Primary Care Provider UnavailAddi Ball NP Primary Care Provider Unavail able Liza Hernandez MD Unavailable [phone] Benita Quinn PA-C Unavailable [phone] Reason for Visit * Reason Comments E-prescribe Rx Request Encounter Details Date Type Department Care Team Description 04/06/2018 Refill Internal Medicine - [place] 175 [facility], [address] [place] [address] Delmis Torres MD E-prescribe Rx Request Social History Tobacco Use Types Packs/Day Years Used Date Smoking Tobacco: Former Sex Assigned at Date Recorded Not on file documented as of this encounter Miscellaneous Notes * Telephone Encounter - Titi Ortega M.A. - 04/06/2018 4:18 PM EST LAST SEEN 12/14/17 F/UP 06/02/18 documented in this encounter Plan of Treatment Not on file documented as of this encounter Visit Diagnoses Not on filedocumented in this encounter Care Teams Doctor Podiatric Medicine Relationship Specialty Start Date End Date Delmis [...] MD 175 [facility] [address] [place] [address] Surgeon Neurosurgery 09/09/21 Benita Quinn PA-C 175 [facility] [address] [place] [address] Specialist Neurosurgery 09/09/21 documented as of this encounter
--- OUTSIDE RECORDS SUMMARY | 2024-08-16 12:39 | XMS_ITS | Encounter Summary ---
Author Organization [facility] Address [address] [place] [address] Care Team Providers Care Water Meter Mechanic Name Role Phone Yue Moreira MD Primary Care Provider Un available Delmis Torres MD Unavailable Unavailable Yue Moreira MD Unavailable Unavaila Emily Foy MD Primary Care Provider Unavail able [facility], Pcp Primary Care Provider UnavailAddi Ball NP Primary Care Provider Unavail able Liza Hernandez MD Unavailable [phone] Benita Quinn PA-C Unavailable [phone] Reason for Visit * Reason Comments E-prescribe Rx Request Encounter Details Date Type Department Care Team Description 07/18/2018 Refill Gastroenterology [facility] 175 [facility] [address] [place] [id number] Kim Simmons DScPAS E-prescribe Rx Request Social [...] on filedocumented in this encounter Care Teams Water Meter Mechanic Relationship Specialty Start Date End Date Yue Moreira MD PCP - General Internal Medicine 06/06/1802/07 Emily Burrell MD PCP - General Internal Medicine 02/08/19 04/24/21 [facility], Pcp PCP - General Internal Medicine 04/25/21 09/02/21 Addi Holland NP PCP - General Family Practice 09/03/21 Delmis Torres MD Internal Medicine 06/06/18 Yue Moreira MD Internal Medicine 06/06/18 Liza Hernandez MD [address] [address] Surgeon Neurosurgery 09/09/21 Benita Quinn PA-C [address] [address] Specialist Neurosurgery 09/09/21 documented as of this encounter
--- OUTSIDE RECORDS SUMMARY | 2024-08-16 12:39 | XMS_ITS | Encounter Summary ---
[facility] Address [address] [place] [address] Care Team Providers Care Extruding Machine Operator Name Role Phone Delmis Torres MD Primary Care Provider Unava ilable Yue Moreira MD Primary Care Provider Un available Delmis Torres MD Unavailable Unavailable Yue Moreira MD Unavailable Unavaila Yue Shields MD Unavailable Unavaila Emily Foy MD Primary Care Provider Unavail able [facility], Pcp Primary Care Provider UnavailAddi Ball NP Primary Care Provider Unavail able Liza Hernandez MD Unavailable [phone] Benita Quinn PA-C Unavailable [phone] Encounter Details Date Type Department Care Team Description 01/27/2017 Release of Information Medical Records [address] [place] [id number] Abstract, Provider Social History Tobacco Use Types Packs/Day Years Used Date Smoking Tobacco: Former Sex Assigned at Date Recorded Not on file documented as of this encounter Plan of Treatment Not on file documented as of this encounter Visit Diagnoses Not on filedocumented in this encounter Care Teams Extruding Machine Operator Relationship Specialty Start Date End Date Delmis Torres MD PCP - General Internal Medicine 07/31/16 06/05/18 Yue Moreira MD PCP - General Internal Medicine 06/06/1802/07 Emily Burrell MD PCP - General Internal Medicine 02/08/19 04/24/21 [facility], Pcp PCP - General Internal Medicine 04/25/21 09/02/21 Addi Holland NP PCP - General Family Practice 09/03/21 Delmis Torres MD Internal Medicine 06/06/18 Yue Moreira MD Internal Medicine 07/31/16 Yue Moreira MD Internal Medicine 06/06/18 Liza Hernandez MD [address] [facility] [address] [place] [address] Surgeon Neurosurgery 09/09/21 Benita Quinn PA-C 175 [facility] [address] [place] [address] Specialist Neurosurgery 09/09/21 documented as of this encounter
--- OUTSIDE RECORDS SUMMARY | 2024-08-16 12:39 | XMS_ITS | Encounter Summary ---
[facility] Organization [facility] Address [address] [place] [address] Care Team Providers Care Pulmonary Specialist Name Role Phone Yue Moreira MD Primary Care Provider Un available Delmis Torres MD Unavailable Unavailable Yue Moreira MD Unavailable Unavaila Emily Foy MD Primary Care Provider Unavail able [facility], Pcp Primary Care Provider UnavailAddi Ball NP Primary Care Provider Unavail able Liza Hernandez MD Unavailable [phone] Benita Quinn PA-C Unavailable [phone] Encounter Details Date Type Department Care Team Description 06/24/2018 [facility] Internal Medicine - [place] 175 [facility], [address] [place] [address] Delmis Torres MD Social History Tobacco Use Types Packs/Day Years Used Date Smoking Tobacco: Former Smokeless Tobacco: Never Alcohol Use Standard Drinks/Week Comments No 0 (1 standard drink = 0.6 oz pur e alcohol) Sex Assigned at Date Recorded Not on file documented as of this encounter Miscellaneous Notes * Telephone Encounter - Titi Ortega M.A. - 06/24/2018 11:02 AM EDT L/S 06/02/18 NO F/UP documented in this encounter Plan of Treatment Not on file documented as of this encounter Visit Diagnoses Not on filedocumented in this encounter Care Teams Pulmonary Specialist Relationship Specialty Start Date End Date Yue Moreira MD PCP - General Internal Medicine 06/06/1802/07 Emily Burrell MD PCP - General Internal Medicine 02/08/19 04/24/21 [facility], Pcp PCP - General Internal Medicine 04/25/21 09/02/21 Addi Holland NP PCP - General Family Practice 09/03/21 Delmis Torres MD Internal Medicine 06/06/18 Yue Moreira MD Internal Medicine 06/06/18 Liza Hernandez MD 175 [facility] [address] [place] [id number] Surgeon Neurosurgery 09/09/21 Benita Quinn PA-C 175 [facility] [address] [place] [address] Specialist Neurosurgery 09/09/21 documented as of this encounter
--- OUTSIDE RECORDS SUMMARY | 2024-08-16 12:39 | XMS_ITS | Encounter Summary ---
Author Organization [facility] Address [address] [place] [address] Care Team Providers Care Switchboard Operator Helper Name Role Phone Yue Moreira MD Primary Care Provider Un available Delmis Torres MD Primary Care Provider Unava ilable Yue Moreira MD Primary Care Provider Un available Delmis Torres MD Unavailable Unavailable Yue Moreira MD Unavailable Unavaila ble Yue Moreira MD Unavailable Unavaila Emily Foy MD Primary Care Provider Unavail able [facility], Pcp Primary Care Provider UnavailAddi Ball NP Primary Care Provider Unavail able Liza Hernandez MD Unavailable [phone] Benita Quinn PA-C Unavailable [phone] Encounter Details Date Type Department Care Team Description 03/31/2016 Hospital Medical Records [address] [place] [address] Shaan Kim MD 175 [facility] [address] [place] [address] Social History Tobacco Use Types Packs/Day Years [...] on filedocumented in this encounter Care Teams Switchboard Operator Helper Relationship Specialty Start Date End Date Yue Moreira MD PCP - General Internal Medicine 11/14/15 Delmis Torres MD PCP - General Internal [...] Internal Medicine 06/06/18 Liza Hernandez MD [address] [address] Surgeon Neurosurgery 09/09/21 Benita Quinn PA-C 175 [facility] [address] [place] [address] Specialist Neurosurgery 09/09/21 documented as of this encounter
--- OUTSIDE RECORDS SUMMARY | 2024-08-16 12:39 | XMS_ITS | Encounter Summary ---
Author Organization [facility] Address [address] [place] [address] Care Team Providers Care Service Or Work Dispatcher Name Role Phone Delmis Torres MD Primary Care Provider Unava ilYue Ching MD Primary Care Provider Un available Delmis Torres MD Unavailable Unavailable Yue Moreira MD Unavailable Unavaila Yue Shields MD Unavailable Unavaila Emily Foy MD Primary Care Provider Unavail able [facility], Pcp Primary Care Provider UnavailAddi Ball NP Primary Care Provider Unavail able Liza Hernandez MD Unavailable [phone] Benita Quinn PA-C Unavailable [phone] Reason for Visit * Reason Comments E-prescribe Rx Request Encounter Details Date Type Department Care Team Description 02/28/2018 Refill Internal Medicine - [place] 175 [facility], [address] [place] [address] Delmis Torres MD E-prescribe Rx Request Social [...] on filedocumented in this encounter Care Teams Service Or Work Dispatcher Relationship Specialty Start Date End Date Delmis Torres MD PCP - General Internal Medicine 07/31/16 06/05/18 Yue Moreira MD PCP - General Internal Medicine 06/06/1802/07 Emily Burrell MD PCP - General Internal Medicine 02/08/19 04/24/21 [facility], Pcp PCP - General Internal Medicine 04/25/21 09/02/21 Addi Holland NP PCP - General Family Practice 09/03/21 Delmis Torres MD Internal Medicine 06/06/18 Yue Moreira MD Internal Medicine 07/31/16 Yue Moreira MD Internal Medicine 06/06/18 Liza Hernandez MD 175 [facility] [address] [place] [id number] Surgeon Neurosurgery 09/09/21 Benita Quinn PA-C 175 [facility] [address] [place] [address] Specialist Neurosurgery 09/09/21 documented as of this encounter
--- OUTSIDE RECORDS SUMMARY | 2024-08-16 12:39 | XMS_ITS | Encounter Summary ---
Author Organization [facility] Address [address] [place] [address] Care Team Providers Care Stonemason Apprentice Name Role Phone Delmis Torres MD Unavailable Unavailable Yue Moreira MD Unavailable Unavaila Addi Klein NP Primary Care Provider Unavail able Liza Hernandez MD Unavailable [phone] Benita Quinn PA-C Unavailable [phone] Reason for Visit * Reason Comments E-prescribe Rx Request Encounter Details Date Type Department Care Team Description 11/17/2021 Refill Gastroenterology - [place] 175 [facility] [address] [place] [address] Kim Simmons DScPAS E-prescribe Rx [...] on filedocumented in this encounter Care Teams Stonemason Apprentice Relationship Specialty Start Date End Date Addi Holland, CLEVE PCP - General Family Practice 09/03/21 Delmis Torres MD Internal Medicine 06/06/18 Yue Moreira MD Internal Medicine 06/06/18 Liza Hernandez MD 175 [facility] [address] [place] [address] Surgeon Neurosurgery 09/09/21 Benita Quinn PA-C [address] [address] Specialist Neurosurgery 09/09/21 documented as of this encounter
--- OUTSIDE RECORDS SUMMARY | 2024-08-16 12:39 | XMS_ITS | Encounter Summary ---
Author Organization [facility] Address [address] [place] [address] Care Team Providers Care Collar Baster Jumpbasting Name Role Phone Yue Moreira MD Primary Care Provider Un available Delmis Torres MD Unavailable Unavailable Yue Moreira MD Unavailable Unavaila Emily Foy MD Primary Care Provider Unavail able [facility], Pcp Primary Care Provider UnavailAddi Ball NP Primary Care Provider Unavail able Liza Hernandez MD Unavailable [phone] Benita Quinn PA-C Unavailable Reason for Visit * Reason Onset Date Comments Faxed Order 12/22/2018 Encounter Details Date Type Department Care Team Description 12/22/2018 Telephone Adult Medicine [address] [address] Yue Moreira MD Faxed Order Social History Tobacco Use Types Packs/Day Years Used Date Smoking Tobacco: Former Smokeless Tobacco: Never Alcohol Use Standard Drinks/Week Comments No 0 (1 standard drink = 0.6 oz pur e alcohol) Sex Assigned at Date Recorded Not on file documented as of this encounter Miscellaneous Notes * Telephone Encounter - Hue Nagy - 12/22/2018 4:25 PM EDT ORDERS FROM [facility] TO BE SIGNED AND FAXED BACK TO [phone] documented in this encounter Plan of Treatment Not on file documented as of this encounter Visit Diagnoses Not on filedocumented in this encounter Care Teams Collar Baster Jumpbasting Relationship Specialty Start Date End Date Yue Moreira MD PCP - General Internal Medicine 06/06/1802/07 Emily Burrell MD PCP - General Internal Medicine 02/08/19 04/24/21 [facility], Pcp PCP - General Internal Medicine 04/25/21 09/02/21 Addi Holland NP PCP - General Family Practice 09/03/21 Delmis Torres MD Internal Medicine 06/06/18 Yue Moreira MD Internal Medicine 06/06/18 Liza Hernandez MD 175 [facility] [address] [place] [id number] Surgeon Neurosurgery 09/09/21 Benita Quinn PA-C 175 [facility] [address] [place] [address] Specialist Neurosurgery 09/09/21 documented as of this encounter
--- OUTSIDE RECORDS SUMMARY | 2024-08-16 12:40 | XMS_ITS | Encounter Summary ---
[facility] Address [address] [place] [address] Care Team Providers Care Oil Burner Name Role Phone Delmis Torres MD Primary Care Provider Unava ilable Yue Moreira MD Primary Care Provider Un available Delmis Torres MD Unavailable Unavailable Yue Moreira MD Unavailable Unavaila Yue Shields MD Unavailable Unavaila Emily Foy MD Primary Care Provider Unavail able [facility] Pcp Primary Care Provider UnavailAddi Ball NP Primary Care Provider Unavail able Liza Hernandez MD Unavailable [phone] Benita Quinn PA-C Unavailable [phone] Reason for Visit * Reason Onset Date Comments refill request 03/08/2018 Encounter Details Date Type Department Care Team Description 03/08/2018 Telephone Internal Medicine - [place] 175 [facility], [address] [place] [address] Delmis Torres MD refill request Social History Tobacco Use Types Packs/Day Years Used Date Smoking Tobacco: Former Sex Assigned at Date Recorded Not on file documented as of this encounter Plan of Treatment Not on file documented as of this encounter Visit Diagnoses Not on filedocumented in this encounter Care Teams Oil Burner Relationship Specialty Start Date End Date Delmis Torres MD PCP - General Internal Medicine 07/31/16 06/05/18 Yue Moreira MD PCP - General Internal Medicine 06/06/1802/07 Emily Burrell MD PCP - General Internal Medicine 02/08/19 04/24/21 [facility], Pcp PCP - General Internal Medicine 04/25/21 09/02/21 Addi Holland NP PCP - General Family Practice 09/03/21 Delmis Torres MD Internal Medicine 06/06/18 Yue Moreira MD Internal Medicine 07/31/16 Yue Moreira MD Internal Medicine 06/06/18 Liza Hernandez MD [address] [address] Surgeon Neurosurgery 09/09/21 Benita Quinn PA-C [address] [address] Specialist Neurosurgery 09/09/21 documented as of this encounter
== END 2024-08-16 11:20 | disposition home or self-care (01) ==
LOC: HO.HBS 11:13
PROVIDERS: PCP Nurse Practitioner Family; Visit Provider Physician Assistant Surgical
DX: E66.3 Overweight (principal); Z68.27 Body mass index [BMI] 27.0-27.9, adult; Z90.3 Acquired absence of stomach [part of]; Z98.84 Bariatric surgery status
CPT/HCPCS: 99214; G2211

== ENCOUNTER 2024-08-30 08:15 | Outpatient (REF) | payer OTHER, SELFPAY ==
[2024-08-30 08:31] LABS: MANUAL DIFF FLAG NO
[2024-08-30 09:05] LABS: Basophils Percent Auto 0.2 % (0-2); Eosinophils Absolute Auto 0.2 X10*3/uL (0.0-0.4); Eosinophils Percent Auto 4.9 % (0-4); Hemoglobin 11.7 g/dl (12.0-16.0); Imm Gran Abs Auto 0.01 X10*3/uL (0.00-0.03); Imm Gran Pct Auto 0.2 % (0.0-0.4); Lymphocytes Absolute Auto 1.8 X10*3/uL (1.2-4.9); Lymphocytes Percent Auto 41.9 % (20-40); Mean Corpuscular HGB Conc 31.6 g/dl (31.0-35.0); Mean Corpuscular Hemoglobin 27.7 pg (27.0-33.0); Mean Corpuscular Volume 87.7 fL (80.0-98.0); Mean Platelet Volume 9.5 fL (9.4-12.3); Monocytes Absolute Auto 0.4 X10*3/uL (0.1-1.2); Monocytes Percent Auto 9.1 % (2-11); Neutrophils Absolute Auto 1.9 x10*3/uL (2.0-8.3); Neutrophils Percent Auto 43.7 % (45-73); Platelet Count 253 X10*3/uL (160-400); Red Blood Count 4.22 X10*6/uL (4.20-5.50); Red Cell Distribution Width 14.1 % (11.0-16.0); White Blood Count 4.3 X10*3/uL (4.8-10.8)
[2024-08-30 09:14] LABS: Appearance Urine Clear; Color Urine Yellow; Glucose Urine UA Negative (Negative); Leukocyte Esterase Urine Trace (Negative); Nitrite Urine Negative (Negative); PH >= 9.0 (5.0-9.0); Specific Gravity - Urine 1.015 (1.005-1.025); UMIC TRIGGER UACC YES; Urine Blood Negative (Negative); Urine Ketones Negative (Negative); Urine Protein Negative (Neg-Trace)
[2024-08-30 09:18] LABS: Bacteria Urine None Seen (None Seen); Hyaline Casts Urine 0-2 /LPF (0-2); RBC Urine 0-2 /HPF (0-2); Squamous Epithelial Cell Urine 0-2 /HPF (0-2); WBC Urine 0-5 /HPF (0-5)
[2024-08-30 09:35] LABS: Alanine Aminotransferase 13 U/L (0-31); Albumin Level 4.3 g/dL (3.5-5.0); Alkaline Phosphatase 95 U/L (39-117); Anion Gap 12 (12-20); Aspartate Amino Transferase 20 U/L (5-31); Bilirubin Total 0.7 mg/dL (0.0-1.0); Blood Urea Nitrogen 16 mg/dL (9-16); C Reactive Protein < 0.10 mg/dL (< or = 0.50); Calcium 9.5 mg/dL (8.4-10.2); Carbon Dioxide 28 mmol/L (22-29); Chloride 106 mmol/L (96-108); Cholesterol 205 mg/dL (<200); Estimated Glomerular Filt Rate > 60; Glucose Random 89 mg/dL (60-115); HDL Cholesterol 64 mg/dL (>40); Iron 116 mcg/dL (30-160); LDL Cholesterol Calculated 130 mg/dL (<100); Percent Iron Saturation 42 % (15-50); Potassium 4.4 mmol/L (3.3-5.1); Sodium 142 mmol/L (135-145); Total Iron Binding Capacity 274 mcg/dL (228-428); Total Protein 7.1 g/dL (6.5-8.0); Triglycerides 57 mg/dL (<150); Unsaturated Iron Binding 158 ug/dL
[2024-08-30 09:45] LABS: Estimated Average Glucose 111 mg/dL; Hemoglobin A1C 113.6975 umol/L; Hemoglobin A1c % 5.5 % (<6.0); Total Hemoglobin (HGBA1C) 3122.4023 umol/L
[2024-08-30 09:56] LABS: Ferritin 136 ng/mL (10-250); TSH reflex Free T4 2.95 uIU/mL (0.32-4.0); Vitamin D 25-OH Total 43.7 ng/mL (>30)
[2024-08-30 10:09] LABS: Folate 13.5 ng/mL (> or = 4.0); Vitamin B12 761 pg/mL (200-900)
[2024-08-30 10:11] LABS: Insulin 4 uU/mL (2-29)
[2024-09-03 21:24] LABS: Zinc 71 mcg/dL (60-130)
[2024-09-04 00:39] LABS: Vitamin A 54 mcg/dL (38-98)
[2024-09-04 16:09] LABS: Vitamin B1 16 nmol/L (8-30)
== END 2024-08-30 08:16 | disposition home or self-care (01) ==
LOC: HO.LAB 08:15
PROVIDERS: PCP Nurse Practitioner Family; Visit Provider Physician Assistant Surgical
DX: Z98.84 Bariatric surgery status (principal)
CPT/HCPCS: 36415; 80053; 80061; 81001; 82306; 82607; 82728; 82746; 83036; 83525; 83540; 84425; 84443; 84590; 84630; 85025; 86140

== ENCOUNTER 2024-09-12 14:58 | Outpatient (AMB) | payer OTHER, SELFPAY ==
--- NOTE | 2024-09-12 15:09 | MHC.PC.OV ---
Vital Signs 09/12/24 15:15 Height 5 ft 2 in Weight 142 lb BMI 26.0 BP 126/84 Blood Pressure Location Lt brachial Position Sitting Pulse 71 Pulse Source Pulse Oximeter Temp 97.8 F Temp Source Oral Pulse Oximetry (%) 98 Oxygen Delivery Method Room Air Intake Visit Reasons: F/up medication Intake Note: Marie is here for follow up on medication. Allergies tramadol Allergy (Severe, Verified 09/12/24 16:10) Itching Medication List - Last Reconciled 09/12/24 by Addi Holland, TELECOMMUNICATIONS FACILITY EXAMINER- acetaminophen-codeine 300-30 mg 1 tab PO Q12H PRN albuterol sulfate 90 mcg/actuation 1 puff inhalation QID atenolol 50 mg PO DAILY [chair lift daily use NS] cyclobenzaprine 10 mg PO BEDTIME PRN docusate sodium (Colace) 100 mg PO DAILY hospital bed daily hydroxyzine HCl 25 mg PO DAILY 30 days meclizine 12.5 mg PO BID PRN miscellaneous medical supply daily use, ECO-Patch Reusable self adhesive electrodes for TENS FES/NMES nitrofurantoin macrocrystal 100 mg PO Q12H rizatriptan take 1 tab at onset of headache; if no relief may repeat 1 tab after at least 2 hrs; max = 3 tabs/24 hr PO trazodone 150 mg PO BEDTIME Tobacco use date assessed: 09/12/24 Fall risk assessment: 2 + Falls in past year Last assessed Fall Risk: 09/12/24 Dental Screening Dental Screen Date: 09/12/24 Did you have a dental visit in the last 12 months?: Yes Did you have a dental problem in the last 6 months where you did not have access to dental care?: No Was dental information given to patient?: Patient has dentist HPI F/up medication HPI Details Chief Complaint The patient presents with chronic neck and shoulder pain. History of Present Illness The patient is a 74-year-old female presenting with chronic neck and shoulder pain. She has undergone radiofrequency ablation at C3, C4, and C5 in April 2022 to address persistent cervical spine-related pain, describing prior nerve-freezing interventions. Despite these attempts, pain persists, particularly with head movement, and extends from her right shoulder into her fingertips. Previous cortisone injections were ineffective. Chronic pain disrupts her sleep, creating insomnia. She currently uses Cyclobenzaprine, increased to 10 mg, for symptom relief. There is potential consideration for a pain stimulator, highlighting ongoing management challenges. Social History Health Maintenance - Discussion of medication adjustments: Increase Cyclobenzaprine from 5 mg to 10 mg to aid in muscle relaxation and pain management. Review of Systems - Musculoskeletal: Reports chronic neck and shoulder pain, right-sided symptoms radiation to fingertips. - Neurological: Reports difficulty sleeping. - General: Reports chronic pain affecting daily activities. Physical Exam General: Cooperative, healthy appearing, comfortable, no acute distress and well developed Orientation: Patient oriented x3 Limitations: Difficulty with turning head side to side, pain with radiculopathy Head: Normal to inspection Ears: Hearing grossly normal bilaterally Nose: Normal external nose present Face and sinus: Normal facial exam Eyes: Appearance normal, both eyes and all related structures Neck: Normal visual inspection and Yes full ROM, ongoing pain with turning head side to side Respiratory: Normal respiratory effort and able to speak in complete sentences. Clear to auscultation bilaterally Cardiovascular: Regular rate and rhythm. Normal S1 and S2 GI: Normal to inspection. Soft to palpation and nontender Skin: No rashes or lesions noted Neuro: Patient oriented x3, reports radicular symptoms down right upper extremity into fingertips Extremities: Normal to inspection, significant right shoulder pain with movement Results Plan Management of the patient's chronic neck and shoulder pain includes increasing Cyclobenzaprine to 10 mg to enhance muscle relaxation and improve symptom control, given insufficient relief at 5 mg. Future considerations involve the possible introduction of a pain stimulator if current management efforts are ineffective. This plan balances current needs with long-term pain management goals. Discussion Notes I discussed with the patient the plan to increase Cyclobenzaprine dosage to 10 mg for better symptom relief, as 5 mg was inadequate. We explored the possible future option of a pain stimulator and reviewed past interventions like cortisone injections, which were unsuccessful. The importance of regular follow-up to monitor medication response and the need for potential adjustments was emphasized. The patient was informed of the benefits and possible risks associated with increased medication intake and agreed with the proposed management plan. Patient Instructions - Take Cyclobenzaprine as prescribed, now at 10 mg, to help manage muscle pain. - Monitor how your symptoms are responding to the increased dosage. - Keep track of any changes in pain location or intensity and report these during follow-ups. - Consider the potential for additional pain management procedures if symptoms persist. - Ensure adequate rest and comfort, particularly when engaging in activities that require neck or shoulder movement. - Follow up as discussed to assess the effectiveness of the new dosage and discuss further management if necessary. [facility] Medical History Insomnia PONV (postoperative nausea and vomiting) GERD (gastroesophageal reflux disease) Oropharyngeal dysphagia Gastritis Migraines Dyslipidemia Hypothyroidism Osteoporosis Anxiety Essential hypertension Surgical History History of shoulder surgery History of section History of nasal surgery History of surgery History of carpal tunnel surgery History of neck surgery Family History Father Cancer of prostate Mother HTN (hypertension) Maternal Grandmother Stroke Asthma Brother Substance use disorder Social History Household Members: Spouse Caregiver staying overnight: No Housing: Apartment Are you a primary home health care physician to a significant other at home: Yes (, he also has a STAFF [employer] OFFICER) Do you presently have 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 or other home services: No 75 years or older and lives alone: No Alcohol intake: never Patient Tobacco Use Status: Former Tobacco user Tobacco use type: Cigarette e-Cigarette/Vaping Use: Never Used Second Hand Smoke Exposure: No service: No Current occupational status: retired Cognitive needs: No Hearing needs: No Vision needs: No Questionnaire PHQ-9 Over the last 2 weeks, how often have you been bothered by any of the following problems? 1. Little interest or pleasure in doing things: nearly every day 2. Feeling down, depressed, or hopeless: nearly every day 3. Trouble falling or staying asleep, or sleeping too much: nearly every day 4. Feeling tired or having little energy: nearly every day 5. Poor appetite or overeating: several days 6. Feeling bad about yourself - or that you are a failure or have let yourself or your family down: more than half the days 7. Trouble concentrating on things, such as reading the newspaper or watching television: several days 8. Moving or speaking so slowly that other people could have noticed. Or the opposite - being so fidgety or restless that you have been moving around a lot more than usual: nearly every day 9. Thoughts that you would be better off or of hurting yourself in some way: several days Total score: 20 Source: Developed by Drs. Jerrod Jain, Sally Davis, Sixto Noel and colleagues, with an educational rosalee from [employer]. Thrive Questionnaire Date Thrive assessed: 06/18/23 I am a: Patient What is your living situation today?: I do not have a steady places to live I am temporarily staying with others Within the past 12 months, did the food you bought not last and you didn't have the money to get more?: Never true Within the past 12 months, did you worry whether your food would run out before you got money to buy more?: Never true Do you have trouble paying for medicines?: No Do you have trouble getting transportation to medical appointments?: No Do you have trouble paying your heating and electricity bill?: No Do you have trouble taking care of your child, family member or friend?: Yes Do you have trouble with day-to-day activities such as bathing, preparing meals, shopping, managing finances, etc.?: Yes Are you currently unemployed and looking for a job?: No Are you interested in more education?: No Please select the resources that you would like help with: Housing/Alf Currently or been in a relationship where the following occur: I choose not to answer THRIVE Score: 1 AUDIT C Alcohol Use Questionnaire (AUDIT-C) 1. How often do you have a drink containing alcohol?: Never Total Score: 0 JUANA-7 AMB Questionnaire JUANA-7 Date JUANA - 7 assessed: 09/07/23 Feeling nervous, anxious, or on edge: 3 = Nearly every day Not being able to stop or control worryin = Nearly every day Worrying too much about different things: 3 = Nearly every day Trouble relaxin = Nearly every day Being so restless that it is hard to sit still: 3 = Nearly every day Becoming easily annoyed or irritable: 2 = More than half the days Feeling afraid as if something awful might happen: 3 = Nearly every day Total JUANA-7 score (0-4 normal; 5-9 mild; 10-14 moderate; 15-21 severe): 20 Source: Developed by Drs. Jerrod Jain, Sally Davis, Sixto Noel and colleagues, with an educational rosalee from [employer]. Physical exam (Primary Care) Vital Signs: Last Vital Signs Temp 97.8 F 09/12/24 15:15 Pulse 71 09/12/24 15:15 BP 126/84 09/12/24 15:15 Pulse Ox 98 09/12/24 15:15 Oxygen Delivery Method Room Air 09/12/24 15:15 BMI result Body Mass Index 26.0 Tobacco/Smoking Status: Tobacco use Status Tobacco use date assessed 09/12/24 09/12/24 15:19 Patient Tobacco Use Status Former Tobacco user 09/12/24 15:19 Tobacco use type Cigarette 09/12/24 15:19 e-Cigarette/Vaping Use Never Used 09/12/24 15:19 PHQ-9: PHQ-9 Score PHQ-9: Total score 20 09/12/24 16:09 Thrive Assessment: Date of Thrive Assessment Date Thrive assessed 06/18/23 09/12/24 15:19 Currently or been in a relationship where the following occur: I choose not to answer Coding Level of Care Code Est Pt Level 3 (28973) Diagnoses Cervical postlaminectomy syndrome M96.1 Assessment & Plan Assessment & Plan (1) Cervical postlaminectomy syndrome: Code(s): M96.1 - Postlaminectomy syndrome, not elsewhere classified Category: Medical Plan . Orders: Referrals Pain Management Referral M96.1 - Postlaminectomy syndrome, not elsewhere classified Medications: New cyclobenzaprine 10 mg PO BEDTIME PRN 30 tabs 2RF muscle spasm
[2024-09-12 15:15] VITALS: BP 126/84; PULSE 71; TEMP 36.6; O2SAT 98; BMI 26.0
--- OUTSIDE RECORDS SUMMARY | 2024-09-12 16:39 | XMS_ITS ---
Author Organization [facility] Address [address] [place] [address] Care Team Providers Care Scribing Machine Operator Name Role Phone AUTUMN PADILLA Primary Care Provider [phone] REASON FOR VISIT follow up labs + MMSE Encounters Encounter Location Date Provider Diagnosis [facility] [address] [place] [address] 04/04/2024 AUTUMN BEASLEY Plan Of Treatment No Information Progress Notes * Marie BRASWELLDO B:1950 (74 yo F)Acc No.[id number]:04/04/2024 Progress Notes Patient:?Patricia BRASWELL Provider:?AUTUMN BEASLEY MD :1950???Age:73 Y???Sex:Female D ate:04/04/2024 Phone: Address:[address] [place], [place] [id number] Structured Data:Consent to r eceive voicemail/text messages? : YES Subjective: * Chief Complaints: * ???1. follow up labs + MMSE. * Medical History:? Objective: * Vitals:? Assessment: Plan: * Treatment: * Billing Information: * Visit Code:? * Procedure Codes:? * Electronic signature of AUTUMN BEASLEY MD on 09/12/2024 at 04:38 PM EDT Sign off status: Pending * Provider:?AUTUMN BEASLEY MD Da te:?04/04/2024 Generated for Printi ng/Faxing/eTransmitting on:?09/12/2024 04:38 PM EDT
== END 2024-09-12 16:00 | disposition home or self-care (01) ==
PROVIDERS: PCP Nurse Practitioner Family; Visit Provider Nurse Practitioner Family
DX: M96.1 Postlaminectomy syndrome, not elsewhere classified (principal)

== ENCOUNTER → 2024-09-12 14:58 | Outpatient (BNVA) | payer OTHER, SELFPAY | PROVIDERS: PCP Nurse Practitioner Family; Visit Provider Nurse Practitioner Family | DX: M54.2 Cervicalgia (principal); M96.1 Postlaminectomy syndrome, not elsewhere classified; M25.511 Pain in right shoulder; Z79.899 Other long term (current) drug therapy | CPT/HCPCS: 96127; 99212 ==

== ENCOUNTER 2024-09-25 12:52 | Outpatient (AMB) | payer OTHER, SELFPAY ==
--- NOTE | 2024-09-25 13:00 | MHC.OFFVIS ---
Vital Signs 09/25/24 13:03 Height 5 ft 2 in Weight 139 lb BMI 25.4 BP 112/73 Blood Pressure Location Rt radial Position Sitting Respiration 16 Pulse 76 Pulse Source Pulse Oximeter Pulse Oximetry (%) 98 Oxygen Delivery Method Room Air Intake Visit Reasons: Postlaminectomy syndrome Food Service Coordinator Required: No Accompanied by: Self / Same As Patient Allergies tramadol Allergy (Severe, Verified 09/25/24 13:05) Itching HPI HPI Postlaminectomy syndrome: Details: History of Present Illness The patient is a 74-year-old female presenting with exacerbation of cervical spine pain. She has a significant history of right cervical spine pain localized to the C4-C5 region, managed previously with radiofrequency ablation (RFA). Following the RFA two years ago, she experienced substantial pain relief lasting around a year. Recently, her symptoms have worsened, with severe pain affecting her right neck, shoulder, and extending to the occipital and temporal regions. Past interventions include neck surgeries performed by Dr. Hernandez, with two operations noted. Her pain is characterized by its impact on her daily activities, notably her sleep, causing significant disruption. She expresses reluctance to undergo the same RFA procedure due to painful experiences before, although a new, potentially less painful technique was discussed. Pain Description - Onset: Gradual return over the past year. - Quality/Character: Excruciating, consistent with facet-mediated pain. - Primary Location: Right cervical spine, C4-C5 level. - Radiation: To the right shoulder, occipital and temporal regions, and ear. - Aggravating Factors: Daily activities, head movements, and sleep disturbances. - Relieving Factors: Previously managed with radiofrequency ablation. - Interference: Notable interference with sleep and daily functioning. Physical Exam - Appears afebrile. - Alert and oriented. - Mood and affect appropriate. - Follows and participates in conversation appropriately. - Respiratory effort is unlabored. - Able to transition from sit to stand unassisted. - Cervical ROM is limited including extension Results - Previous radiofrequency ablation of right C3, C4, C5 major branch noted with effective relief for one year. Pain Management - Affect: Pain has significant impact on sleep, causing awakening. - Analgesia: Previous radiofrequency ablation provided relief; current pain is severe, seeking less painful intervention. - Adverse Effects: Patient reports the previous procedure was too painful. - Activities of Daily Living: Pain affects sleep significantly. - Aberrant Drug Related Behaviors: Not discussed. FOR[facility]LY [facility], [facility] Medical History Insomnia PONV (postoperative nausea and vomiting) GERD (gastroesophageal reflux disease) Oropharyngeal dysphagia Gastritis Migraines Dyslipidemia Hypothyroidism Osteoporosis Anxiety Essential hypertension Surgical History History of shoulder surgery History of section History of nasal surgery History of surgery History of carpal tunnel surgery History of neck surgery Family History Father Cancer of prostate Mother HTN (hypertension) Maternal Grandmother Stroke Asthma Brother Substance use disorder Social History Household Members: Spouse Housing: Apartment Are you a primary caregiver services home to a significant other at home: Yes (, he also has a DATA ENTRY TECHNICIAN) Do you presently have 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 or other home services: No Alcohol intake: never Patient Tobacco Use Status: Former Tobacco user Tobacco use type: Cigarette e-Cigarette/Vaping Use: Never Used Second Hand Smoke Exposure: No service: No Current occupational status: retired Cognitive needs: No Hearing needs: No Vision needs: No Physical Exam Vital Signs: Last Vital Signs Pulse 76 09/25/24 13:03 Resp 16 09/25/24 13:03 BP 112/73 09/25/24 13:03 Pulse Ox 98 09/25/24 13:03 Oxygen Delivery Method Room Air 09/25/24 13:03 BMI result Body Mass Index 25.4 Assessment & Plan Assessment & Plan (1) Cervical spondylosis: Code(s): M47.812 - Spondylosis without myelopathy or radiculopathy, cervical region Category: Medical Plan Plan - Perform one round of diagnostic right cervical C3, C4, C5 medial branch blocks. - Proceed with repeat RFA of the same for axial neck pain if test results are positive. - Employ oral/sublingual sedation to minimize procedural discomfort. - Patient will be contacted to schedule test injections. Patient was informed and verbally consented to the use of an ambient scribe for clinic note documentation during this visit. Discussion Notes During the visit, I reviewed with the patient her history of cervical spine pain and previous interventions, emphasizing her significant relief following radiofrequency ablation two years ago. Given the recurrence of her symptoms, I suggested diagnostic cervical medial branch blocks. If successful, we will proceed with another RFA. Recognizing her concerns about past pain associated with the procedure, I assured her of new advances that can reduce discomfort. She agreed to this plan and acknowledged the necessity to schedule the first round of test injections before proceeding. Patient Instructions - Await contact for scheduling of test injections for diagnostic assessment. - Report any new or worsening symptoms immediately. - Consider positioning adjustments during sleep to alleviate discomfort. - Contact us after test injections to discuss results and further steps. Coding Level of Care Code Est Pt Level 3 (11227) Diagnoses Cervical spondylosis M47.812
[2024-09-25 13:03] VITALS: BP 112/73; PULSE 76; RESP 16; O2SAT 98; BMI 25.4
--- OUTSIDE RECORDS SUMMARY | 2024-09-25 14:14 | XMS_ITS ---
Author Organization [facility] Address [address] [place] [address] Care Team Providers Care Rn Community Name Role Phone AUTUMN PADILLA Primary Care Provider REASON FOR VISIT follow up labs + MMSE Encounters Encounter Location Date Provider Diagnosis [facility] [address] [place] [address] 04/04/2024 AUTUMN BEASLEY Plan Of Treatment No Information Progress Notes * Marie BRASWELLDO B:1950 (74 yo F)Acc No.[id number]:04/04/2024 Progress Notes Patient:?Patricia BRASWELL Provider:?AUTUMN BEASLEY MD :1950???Age:73 Y???Sex:Female D ate:04/04/2024 Phone: Address:[address] [place], [place] [id number] Structured Data:Consent to r eceive voicemail/text messages? : YES Subjective: * Chief Complaints: * ???1. follow up labs + MMSE. * Medical History:? Objective: * Vitals:? Assessment: Plan: * Treatment: * Billing Information: * Visit Code:? * Procedure Codes:? * Electronic signature of AUTUMN BEASLEY MD on 09/25/2024 at 02:14 PM EDT Sign off status: Pending * Provider:?AUTUMN BEASLEY MD Da te:?04/04/2024 Generated for Printi ng/Faxing/eTransmitting on:?09/25/2024 02:14 PM EDT
== END 2024-09-25 13:18 | disposition home or self-care (01) ==
LOC: HO.PMC 12:54
PROVIDERS: PCP Nurse Practitioner Family; Referring Provider Nurse Practitioner Family; Visit Provider Internal Medicine
DX: M47.812 Spondylosis without myelopathy or radiculopathy, cervical region (principal)
CPT/HCPCS: 99213

== ENCOUNTER → 2024-09-25 12:52 | Outpatient (BNVA) | payer OTHER, SELFPAY | PROVIDERS: PCP Nurse Practitioner Family; Referring Provider Nurse Practitioner Family; Visit Provider Internal Medicine | DX: M47.812 Spondylosis without myelopathy or radiculopathy, cervical region (principal); M54.2 Cervicalgia; M25.511 Pain in right shoulder | CPT/HCPCS: 99212 ==

== ENCOUNTER 2024-10-17 07:54 | Outpatient (REF) | payer OTHER, SELFPAY ==
--- OUTSIDE RECORDS SUMMARY | 2024-04-04 05:00 | XMS_ITS ---
Author Organization [facility] Address [address] [place] [address] Care Team Providers Care Distribution Designer Name Role Phone AUTUMN PADILLA Primary Care Provider REASON FOR VISIT follow up labs Encounters Encounter Location Date Provider Diagnosis [facility] [address] [place] [address] 04/04/2024 AUTUMN BEASLEY Plan Of Treatment No Information Progress Notes * Marie ENGELDO B:1950 (74 yo F)Acc No.[id number]:04/04/2024 Patient: Lawson RUIZ LUISITOMarie Provider: Lawson BEASLEY MD :1950 A ge:73 Y S ex:Female Date:04/04/2024 Phone: Address:[address] [place], [place] [phone] Structured Data:Consent to r eceive voicemail/text messages? : YES Subjective: * Chief Complaints: * 1 . Follow up labs. * Medical History: Objective: * Vitals: Assessment: Plan: * Treatment: * Billing Information: * Visit Code: * Procedure Codes: * Electronic signature of AUTUMN BEASLEY MD on 10/17/2024 at 07:56 AM EDT Sign off status: Pending * Provider: Lawson BEASLEY MD Date: 06/05/2023 Generated for Printi ng/Faxing/eTransmitting on: 0 10/17/2024 07:56 AM EDT
--- OUTSIDE RECORDS SUMMARY | 2024-10-17 07:57 | XMS_ITS | Clinical Summary ---
Author Organization [facility] Address [address] [place] [address] Phone Care Team Providers Care Unarmed Security Guard Name Role Phone Addi Holland NP Primary Care Provider Allergies Active Allergy Reactions Criticality Noted Date Comments Tramadol Rash 09/26/2024 Medications rizatriptan (MAXALT) 10 mg tablet Take 1 tablet (10 mg total) by mouth 1 (one) time if needed for migraine. May repeat in 2 hours if unresolved. Do not exceed 30 mg in 24 hours. Active cyclobenzaprin e (FLEXERIL) 10 mg tabletIndicati ons:Muscle pain Take 1 tablet (10 mg total) by mouth 2 (two) times a day if needed for muscle spasms for up to 20 days. 10 tablet 5 10/20/19 25 Active butalbital-ivana taminophen-caf feine (FIORICET, ESGIC) 50-325-40 mg per tablet Take 2 tablets by mouth every 8 (eight) hours if needed for headaches. 12 tablet 5 Active cyclobenzaprin e (FLEXERIL) 10 mg tablet Take 1 tablet (10 mg total) by mouth 1 (one) time each day if needed for muscle spasms. 5 09/30/19 25 Discontinued Active Problems Problem Noted Date Diagnosed Date TIA (transient ischemic attack) 09/26/2024 Encounters Date Type Department Care Team Description 10/02/2024 12:55 PM EDT - 10/02/2024 11:59 PM EDT Hospital Encounter [facility] Neurodiagnostic [address] [place] [address] Myopathy Discharge Disposition: Home or Self Care 09/26/2024 11:04 AM EDT - 09/29/2024 4:43 PM EDT Hospital Encounter [facility] Urology Unit [address] [place] [address] Maricarmen Hatfield DO Montano, Gary L, MD Bukalo, Nermina, MD Santoyo-Pacheco, Omar D, MD TIA (transient ischemic attack) (Primary Dx); 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; Pulmonary vascular congestion; Myopathy; Muscle pain Discharge Disposition: Home or Self Care from Last 3 Months Surgical History Surgery Date Site/Laterality Comments NECK SURGERY 2016 PROCEDURE: HISTORICAL NECK SURGERY; COMMENT: arthrodesis ANKLE SURGERY PROCEDURE: HISTORICAL ANKLE SURGERY HYSTERECTOMY PROCEDURE: HISTORICAL HYSTERECTOMY SHOULDER SURGERY PROCEDURE: HISTORICAL SHOULDER SURGERY CARPAL TUNNEL RELEASE Bilateral PROCEDURE: HISTORICAL CARPAL TUNNEL REL UPPER GASTROINTESTINAL ENDOSCOPY 08/18/2016 PROCEDURE: NM UPPER GI ENDOSCOPY PERFORMED; COMMENT: Erosive gastritis, duodenitis COLONOSCOPY 08/18/2016 PROCEDURE: HISTORICAL COLONOSCOPY; COMMENT: Internal hemorrhoids. Repeat 10 yrs Medical History Medical History Date Comments Hypertension GERD (gastroesophageal reflux disease) Hyperlipidemia Hypothyroid Migraines Family History Medical History Relation Name Comments Arthritis Mother Breast cancer Other niece Breast cancer Sister Arthritis Relation Name Status Comments Mother Other niece Alive Sister Social History Tobacco Use Types Packs/Day Years Used Date Smoking Tobacco: Former Smokeless Tobacco: Never Alcohol Use Standard Drinks/Week Comments No 0 (1 standard drink = 0.6 oz pur e alcohol) Housing Instability Answer Date Recorde d Are you worried that in the next 2 months you may not have stable housing? Patient declined 09/26/2024 Food Access & Nutrition Answer Date Rec orded Do you have access to a vari ety of food including fruits and vegetables? Patient declined 09/26/2024 Health Literacy Answer Date Recorded How often do you need to hav e someone help you when you read instructions, pamphlets, or other written material from your doctor or pharmacy? Patient declined 09/26/2024 Caregiver: How often do you need to have someone help you when you read instructions, pamphlets, or other written material from your doctor or pharmacy? Not on file 025 Financial Risk Answer Date Recorded How hard is it for you to pa y for the very basics like food, housing, medical care, and air conditioning / heating? Patient declined 09/26/2024 Transportation Answer Date Recorded Has the lack of transportati on kept you from meetings, work, or from getting things needed for daily living? Patient declined 09/26/2024 Has the lack of transportati on kept you from medical appointments or from getting medications? Patient declined 09/26/2024 Social Isolation Answer Date Recorded How often do you feel lonely or isolated from those around you? Patient declined 09/26/2024 Food Risk Answer Date Recorded Within the past 12 months we worried whether our food would run out before we got money to buy more. Patient declined Within the past 12 months th e food we bought just didn't last and we didn't have money to get more. Patient declined 09/10 Dependent Care Answer Date Recorded Do you need help finding or paying for care for your loved ones. For example, childcare teacher or elderly care for an older adult? Patient declined 09/26/2024 Education Answer Date Recorded Do you think completing more education or training, like finishing a GED, going to college, or learning a trade, would be helpful for you? Patient declined 09/26/2024 Employment and Income Answer Date Recor ded During the last four weeks, have you been actively looking for work? Patient declined 09/26/2024 Living Situation Answer Date Recorded What is your living situation? 0 09/26/2024 Interpersonal Safety Answer Date Record ed Physical Abuse 09/26/2024 Verbal Abuse 09/26/2024 Comments No Sex and Gender Information Value Date Recorded Sex Assigned at Not on file Legal Sex Female 4:32 AM EST Gender Identity Not on file Sexual Orientation Not on file Obstetrics History Last Filed Vital Signs Vital Sign Reading Time Taken Comments Blood Pressure 97/69 09/29/2024 3:18 PM EDT Pulse 65 09/29/2024 3:18 PM EDT Temperature 36.9 C (98.4 F) 09/29/2024 3:18 PM EDT Respiratory Rate 17 09/29/2024 3:18 PM EDT Oxygen Saturation 97% 09/29/2024 3:18 PM EDT Inhaled Oxygen Concentration - - Weight 62.3 kg (137 lb 6.3 oz) 09/29/2024 6:00 A M EDT Height 157.5 cm (5' 2 ) 09/26/2024 11:31 AM EDT Body Mass Index 25.13 09/26/2024 11:31 AM EDT Plan of Treatment Health Maintenance Due Date Last Done Comments DTaP,Tdap,and Td Vaccines (1 - Tdap) 08/19/1970 RSV Immunization Adult Patients (1 - Risk 60-74 years 1-dose series) 2011 Zoster Vaccines (3 of 3) 05/12/2019 03/17/2019, 0307/2015 Breast Cancer Screening 06/27/2021 06/28/2019, 12/31 Colorectal Cancer Screening: Colonoscopy 03/15/2022 Depression Screening 03/15/2022 Hepatitis C Screening 03/15/2022 Medicare Annual Wellness Visit 03/15/2022 COVID-19 Vaccine ( season) 2023 03/21/2021, 09/03/2020, 08/13/2020 Influenza Vaccine (#1) 2024 , 12/28/2019, 02/24/2018, Additional history exists Social Influencers of Health Screening 09/26/2025 09/26/2024 Falls Risk Assessment 09/29/2025 09/29/2024 Hypertension/CHF/CAD Annual BMP Blood Test 09/29/2025 09/29/2024, 09/28/2024, 09/27/2024, Additional history exists Osteoporosis Screening (Bone Density Screening) 06/23/2027 06/22/2017 Cholesterol Screening (Lipid Panel) 09/27/2029 09/27/2024, 09/26/2024 Pneumococcal Vaccine: 50+ Years Completed 12/14/2017, 06/26/2016 [...] Procedure Name Priority Date/Time Associated Diagnosis Comments EMG 2 LIMBS Routine 10/02/2024 2:10 PM EDT Myopathy ECG ANNOTATED 09/30/2024 XR CHEST 1 VIEW Routine 09/29/2024 2:09 PM EDT LAVENDER - EDTA Routine 09/29/2024 5:58 AM EDT EXTRA TUBES Routine 09/29/2024 5:58 AM EDT MAGNESIUM Routine 09/29/2024 5:58 AM EDT BASIC METABOLIC PANEL Routine 09/29/2024 5:58 AM EDT CREATINE KINASE Routine 09/29/2024 5:58 AM EDT XR HIP 1 VIEW LEFT Routine 09/28/2024 12 :35 PM EDT LAVENDER - EDTA Routine 09/28/2024 6:01 AM EDT EXTRA TUBES Routine 09/28/2024 6:01 AM EDT CREATINE KINASE Routine 09/28/2024 6:01 AM EDT PHOSPHORUS Routine 09/28/2024 6:01 AM EDT MAGNESIUM Routine 09/28/2024 6:01 AM EDT COMPREHENSIVE METABOLIC PANEL Routine 09/28/2024 6:01 AM EDT DRUG ABUSE SCREEN 8A PANEL, URINE Routine 09/27/2024 4:23 PM EDT CREATINE KINASE Routine 09/27/2024 1:41 PM EDT ALDOLASE Routine 09/27/2024 1:41 PM EDT TRANSTHORACIC ECHOCARDIOGRAM (TTE) COMPLETE Routine 09/27/2024 1:21 PM EDT Pulmonary vascular congestion LIPID PANEL WITH REFLEX TO DIRECT LDL Add-On 09/27/2024 10:20 AM EDT C REACTIVE PROTEIN, HIGH SENSITIVITY Add-On 09/27/2024 10:20 AM EDT SEDIMENTATION RATE Add-On 09/27/2024 10 :20 AM EDT HEPATIC FUNCTION PANEL Add-On 10:20 AM EDT LIPASE Add-On 09/27/2024 10:20 AM EDT TROPONIN I HIGH SENSITIVITY Routine 09/27/2024 10:20 AM EDT ECG 12-LEAD STAT 09/27/2024 10:00 AM EDT JAIME IFA WITH TITER AND PATTERN Add-On 09/27/2024 8:11 AM EDT CREATINE KINASE AND CKMB Add-On 09/27/2024 8:11 AM EDT SST - GOLD Routine 09/27/2024 8:11 AM EDT EXTRA TUBES Routine 09/27/2024 8:11 AM EDT TROPONIN I HIGH SENSITIVITY Routine 09/27/2024 8:11 AM EDT B-TYPE NATRIURETIC PEPTIDE Routine 09/27/2024 8:11 AM EDT COMPLETE BLOOD COUNT Routine 09/27/2024 6:19 AM EDT BASIC METABOLIC PANEL Routine 09/27/2024 6:18 AM EDT ARCOS URINE CULTURE TUBE Routine 09/27/19 9:44 PM EDT URINALYSIS WITH REFLEX MICROSCOPIC AND CULTURE Routine 09/26/2024 9:44 PM EDT URINALYSIS WITH REFLEX MICROSCOPIC AND CULTURE Routine 09/26/2024 9:44 PM EDT CULTURE URINE Routine 09/26/2024 9:44 PM EDT MR BRAIN WO CONTRAST STAT 09/26/2024 6:19 PM EDT LIPID PANEL WITH REFLEX TO DIRECT LDL Add-On 09/26/2024 12:08 PM EDT THYROXINE FREE Add-On 09/26/2024 12:08 PM EDT THYROID STIMULATING HORMONE Add-On 09/26/2024 12:08 PM EDT CBC WITH AUTO DIFFERENTIAL STAT 09/26/2024 12:08 PM EDT ACTIVATED PARTIAL THROMBOPLASTIN TIME STAT 09/26/2024 12:08 PM EDT PROTHROMBIN TIME WITH INR STAT 09/26/2024 12:08 PM EDT BASIC METABOLIC PANEL STAT 09/26/2024 12:08 PM EDT CBC AND DIFFERENTIAL STAT 09/26/2024 12:08 PM EDT XR CHEST 1 VIEW STAT 09/26/2024 12:05 PM EDT ECG 12-LEAD STAT 09/26/2024 11:50 AM EDT POCT GLUCOSE BLOOD Routine 09/26/2024 11 :[address] ANGIO HEAD/NECK STROKE WO AND/OR W CONTRAST STAT 09/26/2024 11:[address] HEAD STROKE WO CONTRAST STAT 09/26/2024 11:24 AM EDT SCR MAMMO BI INCL CAD Routine 06/28/2019 8:17 AM EDT Encounter for other screening for malignant neoplasm of breast RILEY DEXA AXIAL SKELETON Routine 06/23/19 1:56 PM EDT Asymptomatic menopausal state from Last 3 Months or Most Recently Relevant to Health Maintenance Results * EMG two limbs (10/02/2024 2:10 PM EDT) Narrative Lizbeth Reyes MD - 10/02/2024 3:57 PM EDT Images from the original result were not included. [facility] [address] [place] [id number] Electromyograph Report Date of service: 10/02/24 Patient Name: Eduardo Nagy Date of : 1950 Age: 74 y.o. Gender: female Procedure Order: EMG two limbs Ordering Provider: YOUNG Hilario Reason for Exam: There are no answered order specific questions. Diagnosis listed on Order: Myopathy Please see scanned report for testing details and results. Procedure Note Lizbeth Reyes MD - 10/02/2024 Images from the original note were not included. [facility] [address] [place] [id number] Electromyograph Report Date of service: 10/02/24 Patient Name: Eduardo Nagy Date of : 1950 Age: 74 y.o. Gender: female Procedure Order: EMG two limbs Ordering Provider: YOUNG Hilario Reason for Exam: There are no answered order specific questions. Diagnosis listed on Order: Myopathy Please see scanned report for testing details and results. EDT Katelyn VIDAL NEUROLOGY ORDERABLES Hoa l Result * ECG-Annotated (09/30/2024) Provider Onbase MD ECG ORDERABLES Final Result * XR Chest 1 View (09/29/2024 2:09 PM EDT) Only the most recent of2 resultswithin the time period is included. Anatomical Region Laterality Modality Body Radiographic Gillian ging 10/01/2024 10:1 0 AM EDT Impressions 10/01/2024 10:12 AM EDT Impression: 1. Stable cardiomegaly. 2. No active pulmonary process. Telerad YOUNG ([id number]) -------- FINAL REPORT -------- Dictated By: Jhoana Chase Dictated Date: 10/01/2024 10:10 ET Assigned Physician: Jhoana Chase Reviewed and Electronically Signed By: Jhoana Chase Signed Date: 10/01/2024 10:12 ET Workstation ID: [id number] Transcribed By: Self Edit Transcribed Date: 10/01/2024 10:10 ET Narrative 10/01/2024 10:12 AM EDT History: Pulmonary edema. Comparison: 09/26/24, 12/14/23 Findings: Portable AP upright chest at 2:06 PM. The cardiac silhouette remains enlarged and there is elongation and tortuosity of the thoracic aorta. Hilar contours are normal. The pulmonary vascularity is now within normal limits, with resolution of the vascular congestive changes noted previously. The lungs are clear. The costophrenic angles are sharp. Surgical clips are again seen in the epigastric region and there is cervical spine surgical hardware. Procedure Note Jhoana Chase MD - 10/01/2024 History: Pulmonary edema. Comparison: 09/26/24, 12/14/23 Findings: Portable AP upright chest at 2:06 PM. The cardiac silhouette remainsenlarged and there is elongation and tortuosity of the thoracic aorta.Hilar contours are normal. The pulmonary vascularity is now within normallimits, with resolution of the vascular congestive changes notedpreviously. The lungs are clear. The costophrenic angles are sharp. Surgical clips are again seen in the epigastric region and there iscervical spine surgical hardware. IMPRESSION: Impression: 1. Stable cardiomegaly. 2. No active pulmonary process. Telerad YOUNG ([id number]) -------- FINAL REPORT -------- Dictated By: Jhoana Chase Dictated Date: 10/01/2024 10:10 ET Assigned Physician: Jhoana Chase Reviewed and Electronically Signed By: Jhoana Chase Signed Date: 10/01/2024 10:12 ET Workstation ID: [id number] Transcribed By: Self Edit Transcribed Date: 10/01/2024 10:10 ET Katelyn VIDAL IMG XR PROCEDURES Final R esult * Lavender tube (09/29/2024 5:58 AM EDT) Only the most recent of2 resultswithin the time period is included. Extra Tube Hold for add-ons. 10/02/2024 9:01 AM EDT [facility] Comment:Auto resulted. Blood Venous blood specimen / Unknown Venipuncture / Unknown 09/29/2024 5:58 AM EDT 09/29/2024 6:17 AM EDT Yuval Lake MD LAB BLOOD ORDERABLES F inal Result [facility] [address] [place] [address], [place] [phone] * Magnesium (09/29/2024 5:58 AM EDT) Only the most recent of2 resultswithin the time period is included. [facility] Magnesium 2.1 1.9 - 2.6 mg/dL LAB CHEMISTRY METHOD 09/29/2024 7:05 AM EDT [facility] Blood Venous blood specimen / Unknown Venipuncture / Unknown 09/29/2024 5:58 AM EDT 09/29/2024 6:[address] [facility] [place] [place] LAB BLOOD ORDERABLES Hoa l Result Performing Organization Address City/[facility]/ZIP Co de Phone Number [facility] [address] [place] [address], [place] [phone] * (ABNORMAL) Creatine kinase (09/29/2024 5:58 AM EDT) Only the most recent of3 resultswithin the time period is included. [facility] Total CK 1,852(H) 22 - 269 unit/L LAB CHEMISTRY METHOD 09/29/2024 7:24 AM EDT [facility] Blood Venous blood specimen / Unknown Venipuncture / Unknown 09/29/2024 5:58 AM EDT 09/29/2024 6:[address] [facility] [place] [place] LAB BLOOD ORDERABLES Hoa l Result [facility] [address] [place] [address], [place] [phone] * (ABNORMAL) Basic metabolic panel (09/29/2024 5:58 AM EDT) Only the most recent of3 resultswithin the time period is included. [facility] Sodium 137 133 - 145 mmol/L LAB CHEMISTRY METHOD 09/29/2024 7:05 AM EDT [facility] Potassium 4.3 3.5 - 5.5 mmol/L LAB CHEMISTRY METHOD 09/29/2024 7:05 AM [facility] Chloride 100 96 - 110 mmol/L LAB CHEMISTRY METHOD 09/29/2024 7:05 AM [facility] CO2 33(H) 21 - 32 mmol/L LAB CHEMISTRY METHOD 09/29/2024 7:05 AM [facility] Anion Gap 4 3 - 11 LAB CHEMISTRY METHOD 09/29/2024 7:05 AM [facility] Glucose 101(H) 70 - 100 mg/dL LAB CHEMISTRY METHOD 09/29/2024 7:05 AM [facility] BUN 17 5 - 25 mg/dL LAB CHEMISTRY METHOD 09/29/2024 7:05 AM [facility] Creatinine 0.76 0.50 - 1.10 mg/dL LAB CHEMISTRY METHOD 09/29/2024 7:05 AM [facility] eGFR 83 >=60 mL/min/1. 73m2 LAB CHEMISTRY METHOD 09/29/2024 7:05 AM [facility] Comment:Calculation based on the Chronic Kidney Disease Epidemiology Collaboration (CKD-EPI) equation refit without adjustment for race. BUN/Creatinine Ratio 22.4 LAB CHEMISTRY METHOD 09/29/2024 7:05 AM [facility] Calcium 9.2 8.5 - 10.5 mg/dL LAB CHEMISTRY METHOD 09/29/2024 7:05 AM [facility] Blood Venous blood specimen / Unknown Venipuncture / Unknown 09/29/2024 5:58 AM EDT 09/29/2024 6:12 AM EDT Katelyn VIDAL LAB BLOOD ORDERABLES Hoa chavez Result [facility] [address] [place] [address], * XR Hip 1 View Left (09/28/2024 12:35 PM EDT) Anatomical Region Laterality Modality Lower Extremities, Hip Left Radiograp hic Imaging 09/28/2024 12:4 8 PM EDT Impressions 09/28/2024 12:51 PM EDT FINDINGS/IMPRESSION: Single AP view of the left hip demonstrating mild osteoarthritic changes. No acute fracture. Normal alignment. -------- FINAL REPORT -------- Dictated By: Ankit Bauer Dictated Date: 09/28/2024 12:48 ET Assigned Physician: Ankit Bauer Reviewed and Electronically Signed By: Ankit Bauer Signed Date: 09/28/2024 12:51 ET Workstation ID: [id number] Transcribed By: Self Edit Transcribed Date: 09/28/2024 12:48 ET Narrative 09/28/2024 12:51 PM EDT XR HIP 1 VIEW LEFT INDICATION: left Hip pain TECHNIQUE: XR HIP 1 VIEW LEFT COMPARISON: No priors available. Procedure Note Ankit Bauer MD - 09/28/2024 XR HIP 1 VIEW LEFT INDICATION: left Hip pain TECHNIQUE: XR HIP 1 VIEW LEFT COMPARISON: No priors available. IMPRESSION: FINDINGS/IMPRESSION: Single AP view of the left hip demonstrating mildosteoarthritic changes. No acute fracture. Normal alignment. -------- FINAL REPORT -------- Dictated By: Ankit Bauer Dictated Date: 09/28/2024 12:48 ET Assigned Physician: Ankit Bauer Reviewed and Electronically Signed By: Ankit Bauer Signed Date: 09/28/2024 12:51 ET Workstation ID: [id number] Transcribed By: Self Edit Transcribed Date: 09/28/2024 12:48 ET Katelyn VIDAL IMG XR PROCEDURES Final R esult * Phosphorus (09/28/2024 6:01 AM EDT) Phosphorus 3.1 2.5 - 4.5 mg/dL LAB CHEMISTRY METHOD 09/28/2024 7:56 AM EDT [facility] Blood Venous blood specimen / Unknown Venipuncture / Unknown 09/28/2024 6:01 AM EDT 09/28/2024 6:24 AM EDT Katelyn VIDAL LAB BLOOD ORDERABLES Hoa l Result [facility] [address] [place] [address], * (ABNORMAL) Comprehensive metabolic panel (09/28/2024 6:01 AM EDT) Sodium 135 133 - 145 mmol/L LAB CHEMISTRY METHOD 09/28/2024 7:56 AM [facility] Potassium 3.6 3.5 - 5.5 mmol/L LAB CHEMISTRY METHOD 09/28/2024 7:56 AM [facility] Chloride 97 96 - 110 mmol/L LAB CHEMISTRY METHOD 09/28/2024 7:56 AM [facility] CO2 32 21 - 32 mmol/L LAB CHEMISTRY METHOD 09/28/2024 7:56 AM [facility] Anion Gap 6 3 - 11 LAB CHEMISTRY METHOD 09/28/2024 7:56 AM [facility] Glucose 98 70 - 100 mg/dL LAB CHEMISTRY METHOD 09/28/2024 7:56 AM [facility] BUN 17 5 - 25 mg/dL LAB CHEMISTRY METHOD 09/28/2024 7:56 AM [facility] Creatinine 0.69 0.50 - 1.10 mg/dL LAB CHEMISTRY METHOD 09/28/2024 7:56 AM [facility] eGFR 92 >=60 mL/min/1. 73m2 LAB CHEMISTRY METHOD 09/28/2024 7:56 AM [facility] Comment:Calculation based on the Chronic Kidney Disease Epidemiology Collaboration (CKD-EPI) equation refit without adjustment for race. BUN/Creatinine Ratio 24.6 LAB CHEMISTRY METHOD 09/28/2024 7:56 AM [facility] Calcium 9.4 8.5 - 10.5 mg/dL LAB CHEMISTRY METHOD 09/28/2024 7:56 AM [facility] AST (SGOT) 77(H) 10 - 42 unit/L LAB CHEMISTRY METHOD 09/28/2024 7:56 AM [facility] ALT (SGPT) 30 10 - 60 unit/L LAB CHEMISTRY METHOD 09/28/2024 7:56 AM [facility] Alkaline Phosphatase 69 42 - 121 unit/L LAB CHEMISTRY METHOD 09/28/2024 7:56 AM [facility] Total Protein 6.0 6.0 - 8.0 g/dL LAB CHEMISTRY METHOD 09/28/2024 7:56 AM [facility] Albumin 3.4 3.2 - 5.0 g/dL LAB CHEMISTRY METHOD 09/28/2024 7:56 AM [facility] Total Bilirubin 0.5 0.0 - 1.4 mg/dL LAB CHEMISTRY METHOD 09/28/2024 7:56 AM [facility] Blood Venous blood specimen / Unknown Venipuncture / Unknown 09/28/2024 6:01 AM EDT 09/28/2024 6:24 AM EDT Katelyn VIDAL LAB BLOOD ORDERABLES Hoa l Result [facility] [address] [place] [address], * (ABNORMAL) Drug abuse screen 8a panel, urine (09/27/2024 4:23 PM EDT) Amphetamine Screen, Ur Negative Negative LAB CHEMISTRY METHOD 7:18 PM EDT [facility] Comment:Certain OTC medicati ons containing ephedrine, phenylephrine, pseudoephedrine and phenylpropanolamine can cause false positive results. Barbiturate Screen, Ur Negative Negative LAB CHEMISTRY METHOD 5 7:18 PM EDT [facility] Benzodiazepine Screen, Ur Negative Negative LAB CHEMISTRY METHOD 5 7:18 PM EDT [facility] Cocaine Screen, Ur Negative Negative LAB CHEMISTRY METHOD 5 7:18 PM EDT [facility] Opiate Screen, Ur Positive(A ) Negative LAB CHEMISTRY METHOD 5 7:18 PM EDT [facility] Cannabinoid (THC) Screen, Ur Negative Negative LAB CHEMISTRY METHOD 5 7:18 PM EDT [facility] Comment:Specimens from patie nts taking pantoprazole sodium (Protonix) have been shown to produce false positive results. Oxycodone Screen, Ur Negative Negative LAB CHEMISTRY METHOD 5 7:18 PM EDT [facility] Fentanyl, Ur Negative Negative LAB CHEMISTRY METHOD 5 7:18 PM T [facility] Urine Urine specimen obtained by clean catch procedure / Unknown Non-blood Collection / Unknown 09/27/2024 4:23 PM EDT 09/27/2024 6:30 PM EDT Narrative [facility] - 09/27/2024 7:18 PM EDT Assay cutoffs: Amphetamines 1000 ng/mL Barbiturates 200 ng/mL Benzodiazepines 200 ng/mL Cocaine 300 ng/mL Fentanyl 1 ng/mL Opiates 300 ng/mL Oxycodone 100 ng/mL THC 50 ng/mL Semi-quantitative assay for screening purposes only. Unconfirmed screening result should not be used for non-medical purposes. *ALTERNATE METHOD CONFIRMATION DONE UPON REQUEST ONLY* Katelyn VDI[facility] LAB URINE ORDERABLES Hoa chavez Result [facility] [address] [place] [address], [place] [phone] * (ABNORMAL) Aldolase (09/27/2024 1:41 PM EDT) Pathologist [facility] Aldolase 20.6(H) 1.2 - 7.6 U/L 10/03/2024 9:54 AM EDT [facility] Comment: Test performed at [facility], [address] , [place] [address] Alisha Jesus MD, PhD - [employer] Blood Venous blood specimen / Unknown Venipuncture / Unknown 09/27/2024 1:41 PM EDT 09/27/2024 2:09 PM EDT [facility]LOOD ORDERABLES Hoa chavez Result [facility] [address] [place] [address] * (ABNORMAL) TRANSTHORACIC ECHOCARDIOGRAM (TTE) COMPLETE (09/27/2024 1:21 PM EDT) Pathologist [facility] Left Atrium Minor Hudson 5.3 cm CV PACS Left Atrium Major Hudson 5.3 cm CV PACS LA Area Sys (A2C) 16 cm2 CV PACS LA Area Sys (A4C) 14 cm2 CV PACS LA Volume (BP) 34 mL CV PACS RA Area 16.3 cm2 CV PACS RA 2D Volume 38 mL CV PACS AV Mean Gradient 3 mmHg CV PACS Ao VTI 26.5 cm CV PACS AV Peak David 1.3 m/s CV PACS AV Peak Gradient 7 mmHg CV PACS AV Area Continuity Equation 2.4 cm2 CV PACS AV Area Peak Velocity 2.1 cm2 CV PACS Aortic Arch 2.6 cm CV PACS Ascending Aorta 3.3 cm CV PACS Aortic Sinus Valsalva 3.4 cm CV PACS IVC Proximal 2.2 cm CV PACS IVSD 1.0(A) 0.6 - 0.9 cm CV PACS LVIDD 4.1 3.8 - 5.2 cm CV PACS LVIDS 2.2 2.2 - 3.5 cm CV PACS LVOT Diameter 2.0 cm CV PACS LVOT Mean David 0.6 m/s CV PACS LVOT Mean Grad 2 mmHg CV PACS LVOT Peak VTI 20.3 cm CV PACS LVOT Peak David 0.9 m/s CV PACS LVOT Peak Gradient 3 mmHg CV PACS LVPWD 0.9 0.6 - 0.9 cm CV PACS MV E' Tissue Velocity Lateral 10 cm/s CV PACS MV E' Tissue Velocity Septal 9 cm/s CV PACS LVOT Area 3.1 cm2 CV PACS LVOT Stroke Volume 64 mL CV PACS MV Deceleration [place] 4.0 m/s2 CV PACS E Wave Deceleration Time 174 119 - 242 ms CV PACS MV PHT 51 ms CV PACS MV Peak A David 0.65 m/s CV PACS MV Peak E David 0.70 m/s CV PACS MV Area PHT 4.3 cm2 CV PACS PV Acceleration Time 111 ms CV PACS RV Diastolic Basal Dimension 2.9 2.5 - 4.1 cm CV PACS RV S' 16 cm/s CV PACS TAPSE 24 mm CV PACS TR Peak Velocity 2.00 m/s CV PACS TR Peak Gradient 16 mmHg CV PACS E/E' Ratio Septal 8 CV PACS E/E' Ratio Averaged 7 CV PACS LVOT Stroke Index 39 mL/m2 CV PACS Relative Wall Thickness ratio 0.44 CV PACS LVOT:AV VTI Index 0.77 CV PACS FS 46 % CV PACS LV Mass 2D 123 g CV PACS Ascending Aorta Index 1.99 cm/m2 CV PACS LVOT flow 188 mL/s CV PACS RA 2D Volume Index 23 mL/m2 CV PACS VIRGIL Index (VTI) 1.45 cm2/m2 CV PACS VIRGIL Index (Pk David) 1.27 cm2/m2 CV PACS LVIDD Index 2.47 cm/m2 CV PACS LVIDS Index 1.33 cm/m2 CV PACS AV Velocity Ratio 0.69 CV PACS E/A Ratio 1.1 CV PACS E/E' Ratio Lateral 7 CV PACS LA Volume Index (BP) 20 mL/m2 CV PACS LV Mass Index 2D 74 g/m2 CV PACS BSA 1.73 m2 CV PACS Right Ventricular Peak Systolic Pressure 31 mmHg CV PACS Est. RA Pressure 15 mmHg CV PACS Anatomical Region Laterality Modality Ultrasound Narrative 09/27/2024 3:09 PM EDT Normal left ventricular wall thickness and internal chamber dimensions. Normal systolic function. EF in the range of 55%. No evidence of diastolic dysfunction. Normal RV size and function. Normal left and right atrial size. The mitral chordal apparatus is redundant and floppy and there is some prolapse in systole into the LVOT. No obvious obstruction. The IVC is quite dilated and does not collapse normally with inspiration suggesting an increased central venous pressure. Trace TR. Normal estimated RV systolic pressure No prior echo for comparison. Left Ventricle Left ventricle cavity size is normal. Left ventricular wall thickness at upper limits of normal. Systolic function is normal with an ejection fraction of 55-60%. There are no regional LV wall motion abnormalities. There is no diastolic dysfunction. Right Ventricle Right ventricle cavity appears normal. Systolic function is normal. Left Atrium Left atrium cavity size is normal. Right Atrium Right atrium cavity is normal. IVC/SVC RA pressures is estimated to be 15 mmHg (IVC diameter >21 mm and decreases <50% during inspiration). Mitral Valve The leaflets are mildly thickened. The chordal apparatus is very floppy and redundant. There may be a torn cord. It prolapses into the LVOT. No evidence of LVOT obstruction There is trace regurgitation. There is no evidence of mitral valve stenosis. Tricuspid Valve Tricuspid valve structure is normal. There is trace regurgitation. There is no evidence of tricuspid valve stenosis. The right ventricular systolic pressure is normal. Aortic Valve The aortic valve is trileaflet. There is no regurgitation or stenosis. Pulmonic Valve Pulmonic valve structure is normal. There is trace pulmonic valve regurgitation. There is no evidence of pulmonic valve stenosis. Ascending Aorta The aorta appears normal in size. Pericardium Pericardium appears normal. There is no pericardial effusion. Study Details Overall the study quality was adequate. Melissa VIDAL CV ECHO PROCEDURES Final Result * (ABNORMAL) Troponin I high sensitivity (09/27/2024 10:20 AM EDT) Only the most recent of2 resultswithin the time period is included. High Sensitivity Troponin I 152(HH) <=54 ng/L LAB CHEMISTRY METHOD 09/27/2024 11:02 AM EDT [facility] Blood Venous blood specimen / Unknown Venipuncture / Unknown 09/27/2024 10:20 AM EDT 09/27/2024 10:26 AM EDT Narrative [facility] - 09/27/2024 11:02 AM EDT High levels of biotin in samples may falsely decrease hsTroponin values. Use caution when interpreting hsTroponin results in patients taking biotin who exhibit renal impairment (eGFR <60) or in patients taking more than 20 mg/day of biotin. us Katelyn VIDAL LAB BLOOD ORDERABLES Hoa chavez Result [facility] [address] [place] [address], [place] [phone] * (ABNORMAL) Lipid panel with reflex to direct LDL (09/27/2024 10:20 AM EDT) Only the most recent of2 resultswithin the time period is included. Cholesterol 234(H) 0 - 200 mg/dL LAB CHEMISTRY METHOD 09/27/2024 12:46 PM EDT [facility] Triglycerides 71 0 - 150 mg/dL LAB CHEMISTRY METHOD 09/27/2024 12:46 PM EDT [facility] HDL 79 >=40 mg/dL LAB CHEMISTRY METHOD 09/27/2024 12:46 PM EDT [facility] LDL Calculated 141(H) 0 - 100 mg/dL LAB CHEMISTRY METHOD [facility]24 12[facility] VLDL Cholesterol Koby 14.2 mg/dL LAB CHEMISTRY METHOD 09/27/2024 12:46 PM EDT [facility] Non HDL Chol. (LDL+VLDL) 155(H) <145 mg/dL LAB CHEMISTRY METHOD 09/27/2024 12:46 PM EDT [facility] Chol/HDL Ratio 3.0 0.0 - 4.4 LAB CHEMISTRY METHOD 09/27/2024 12:46 PM EDT [facility] Blood Venous blood specimen / Unknown Venipuncture / Unknown 09/27/2024 10:20 AM EDT 09/27/2024 10:25 AM EDT [facility] LAB BLOOD ORDERABLES Hoa l Result Performing Organization Address City/[facility]/ZIP Co de Phone Number [facility] [address] [place] [address], [place] [phone] * Sedimentation rate (09/27/2024 10:20 AM EDT) [facility] Sed Rate 23 0 - 30 mm/hr LAB HEMETOLOGY METHOD 09/27/2024 10:39 AM EDT [facility] Blood Venous blood specimen / Unknown Venipuncture / Unknown 09/27/2024 10:20 AM EDT 09/27/2024 10:[address] [facility] [place] [place] LAB BLOOD ORDERABLES Hoa l Result Performing Organization Address [facility] de Phone Number [facility] [address] [place] [address], [place] [phone] * C reactive protein, high sensitivity (09/27/2024 10:20 AM EDT) CRP, High Sensitivity 21.90 mg/L LAB CHEMISTRY METHOD 09/27/2024 11:35 AM EDT [facility] Comment: Cardio CRP Relative Risk Categories Low <1.0 mg/L Average 1.0 - 3.0 mg/L High >3.0 mg/L Levels >10.0 mg/L should be ignored and repeated when the patient is stable and infection or inflammation is ruled out. HRT (estrogens) consistently increase cardio CRP levels. Risk estimates for women on HRT may need to be calibrated downward. Blood Venous blood specimen / Unknown Venipuncture / Unknown 09/27/2024 10:20 AM EDT 09/27/2024 10:25 AM EDT Rory Diaz MD LAB BLOOD ORDERABLES Final Resul t Performing Organization Address [facility]/State/ZIP Co de Phone Number [facility] [address] [place] [address], [place] [phone] * (ABNORMAL) Lipase (09/27/2024 10:20 AM EDT) Pathologist [facility] Lipase 12(L) 13 - 75 unit/L LAB CHEMISTRY METHOD 09/27/2024 10:57 AM EDT [facility] Blood Venous blood specimen / Unknown Venipuncture / Unknown 09/27/2024 10:20 AM EDT 09/27/2024 10:25 AM EDT Katelyn VIDAL LAB BLOOD ORDERABLES Hoa l Result Performing Organization Address [facility]/ZIP Co de Phone Number [facility] [address] [place] [address], * (ABNORMAL) Hepatic function panel (09/27/2024 10:20 AM EDT) [facility] Total Protein 6.8 6.0 - 8.0 g/dL LAB CHEMISTRY METHOD 09/27/2024 10:57 AM EDT [facility] Albumin 3.8 3.2 - 5.0 g/dL LAB CHEMISTRY METHOD 09/27/2024 10:57 AM EDT [facility] Total Bilirubin 0.5 0.0 - 1.4 mg/dL LAB CHEMISTRY METHOD 09/27/2024 10:57 AM EDT [facility] Bilirubin, Direct 0.1 0.0 - 0.3 mg/dL LAB CHEMISTRY METHOD 09/27/2024 10:57 AM EDT [facility] Bilirubin, Indirect 0.4 0.0 - 1.1 mg/dL LAB CHEMISTRY METHOD 09/27/2024 10:57 AM EDT [facility] ALT (SGPT) 32 10 - 60 unit/L LAB CHEMISTRY METHOD 09/27/2024 10:57 AM EDT [facility] AST (SGOT) 86(H) 10 - 42 unit/L LAB CHEMISTRY METHOD 09/27/2024 10:57 AM EDT [facility] Alkaline Phosphatase 78 42 - 121 unit/L LAB CHEMISTRY METHOD 09/27/2024 10:57 AM EDT [facility] Blood Venous blood specimen / Unknown Venipuncture / Unknown 09/27/2024 10:20 AM EDT 09/27/2024 10:25 AM EDT Katelyn VIDAL LAB BLOOD ORDERABLES Hoa l Result [facility]) [facility] [address] [place] [address], [place] [phone] * ECG 12 lead (09/27/2024 10:00 AM EDT) Only the most recent of2 resultswithin the time period is included. Ventricular Rate ECG 66 BPM GEMUSE Atrial Rate 66 BPM GEMUSE P-R Interval 146 ms GEMUSE QRS Duration 86 ms GEMUSE Q-T Interval 392 ms GEMUSE QTc 410 ms GEMUSE P Wave [place] 47 degrees GEMUSE R [place] -6 degrees GEMUSE T [place] 19 degrees GEMUSE ECG Interpretation Normal sinus rhythm Normal ECG When compared with ECG of 26-SEP-2024 11:50, No significant change was found Confirmed by SARITA DIAL ([id number]) on 09/28/2024 2:47:33 PM GEMUSE 09/27/2024 10:0 0 AM EDT 09/28/2024 2:47 PM EDT Katelyn VIDAL ECG ORDERABLES Final Res ult Performing Organization Address City/[facility]/ZIP Co de Phone Number GEMUSE * SST tube (09/27/2024 8:11 AM EDT) Pathologist [facility] Extra Tube Hold for add-ons. 09/27/2024 10:01 AM EDT [facility] Comment:Auto resulted. Blood Venous blood specimen / Unknown 09/27/2024 8:11 AM EDT 09/27/2024 8:17 AM EDT us Yuval Lake MD LAB BLOOD ORDERABLES F inal Result Performing Organization Address [facility] Co de Phone Number [facility] [address] [place] [address], [place] [phone] * JAIME IFA with titer and pattern (09/27/2024 8:11 AM EDT) Pathologist [facility] JAIME Negative Negative 09/27/2024 2:53 PM EDT [facility] Blood Venous blood specimen / Unknown 09/27/2024 8:11 AM EDT 09/27/2024 8:17 AM EDT us Katelyn VIDAL LAB BLOOD ORDERABLES Hoa l Result Performing Organization Address [facility] Co de Phone Number [facility] [address] [place] [address], [place] [phone] * (ABNORMAL) B-type natriuretic peptide (09/27/2024 8:11 AM EDT) Pathologist [facility] BNP 120(H) <=100 pcg/mL LAB CHEMISTRY METHOD 09/27/2024 8:59 AM EDT [facility] Blood Venous blood specimen / Unknown Venipuncture / Unknown 09/27/2024 8:11 AM EDT 09/27/2024 8:16 AM EDT us [facility] LAB BLOOD ORDERABLES Hoa l Result [facility] [address] [place] [address], [place] [phone] * (ABNORMAL) Creatine kinase and CKMB (09/27/2024 8:11 AM EDT) Pathologist [facility] Total CK 3,151(H) 22 - 269 unit/L LAB CHEMISTRY METHOD 09/27/2024 9:49 AM EDT [facility] Comment:Results verified by repeat testing CK-MB 6.1(H) 1.0 - 3.6 ng/mL LAB CHEMISTRY METHOD 09/27/2024 9:49 AM EDT [facility] CK-MB Index 0.0 0.0 - 5.0 LAB CHEMISTRY METHOD 09/27/2024 9:49 AM EDT [facility] Blood Venous blood specimen / Unknown 09/27/2024 8:11 AM EDT 09/27/2024 8:17 AM EDT [facility] BLOOD ORDERABLES Hoa l Result [facility] [address] [place] [address], [place] [phone] * (ABNORMAL) Complete blood count (09/27/2024 6:19 AM EDT) [facility] WBC 7.8 4.8 - 10.8 K/mcL LAB HEMETOLOGY METHOD 09/27/2024 6:50 AM EDT [facility] RBC 3.80 3.80 - 4.80 M/mcL LAB HEMETOLOGY METHOD 09/27/2024 6:50 AM EDT [facility] Hemoglobin 10.4(L) 11.5 - 16.0 g/dL LAB HEMETOLOGY METHOD 09/27/2024 6:50 AM EDT [facility] Hematocrit 33.4(L) 35.0 - 47.0 % LAB HEMETOLOGY METHOD 09/27/2024 6:50 AM EDT [facility] MCV 87.4 79.0 - 98.0 FL LAB HEMETOLOGY METHOD 09/27/2024 6:50 AM EDT [facility] MCH 27.2 27.0 - 32.0 pcg LAB HEMETOLOGY METHOD 09/27/2024 6:50 AM EDT [facility] MCHC 31.1(L) 32.0 - 37.0 g/dL LAB HEMETOLOGY METHOD 09/27/2024 6:50 AM EDT [facility] RDW 13.9 11.0 - 15.0 % LAB HEMETOLOGY METHOD 09/27/2024 6:50 AM EDT [facility] Platelets 208 130 - 400 K/mcL LAB HEMETOLOGY METHOD 09/27/2024 6:50 AM EDT [facility] MPV 9.9 7.0 - 11.0 FL LAB HEMETOLOGY METHOD 09/27/2024 6:50 AM EDT [facility] NRBC 0.0 <1.0 % LAB HEMETOLOGY METHOD 09/27/2024 6:50 AM EDT [facility] NRBC Absolute 0.00 <0.10 K/mcL LAB HEMETOLOGY METHOD 09/27/2024 6:50 AM EDT [facility] Blood Venous blood specimen / Unknown Venipuncture / Unknown 09/27/2024 6:19 AM EDT 09/27/2024 6:29 AM EDT us Idris Chawla MD LAB BLOOD ORDERABLES Final Res ult [facility] [address] [place] [address], * (ABNORMAL) Urinalysis with reflex microscopic and culture (09/26/2024 9:44 PM EDT) [facility] Specific [place] Urine 1.019 1.003 - 1.030 LAB URINALYSIS - AUTOMATED METHOD 09/26/2024 9:57 PM [facility] pH, Urine 5.5 5.0 - 8.0 pH LAB URINALYSIS - AUTOMATED METHOD 09/26/2024 9:57 PM [facility] Leukocytes, Urine Small(A) Negative LAB URINALYSIS - AUTOMATED METHOD 09/26/2024 9:57 PM [facility] Nitrite, Urine Negative Negative LAB URINALYSIS - AUTOMATED METHOD 09/26/2024 9:57 PM [facility] Protein, Urine Negative <=Trace mg/dL LAB URINALYSIS - AUTOMATED METHOD 09/26/2024 9:57 PM [facility] Glucose, Urine Negative Negative mg/dL LAB URINALYSIS - AUTOMATED METHOD 09/26/2024 9:57 PM [facility] Ketones, Urine Trace(A) Negative mg/dL LAB URINALYSIS - AUTOMATED METHOD 09/26/2024 9:57 PM [facility] Urobilinogen, Urine 0.2 0.2 - 1.0 mg/dL LAB URINALYSIS - AUTOMATED METHOD 09/26/2024 9:57 PM [facility] Bilirubin, Urine Negative Negative LAB URINALYSIS - AUTOMATED METHOD 09/26/2024 9:57 PM [facility] Blood, Urine Negative Negative LAB URINALYSIS - AUTOMATED METHOD 09/26/2024 9:57 PM [facility] RBC, Urine 2.4 0 - 4 /HPF LAB URINALYSIS - AUTOMATED METHOD 09/26/2024 9:57 PM [facility] WBC, Urine 3.0 0 - 4 /HPF LAB URINALYSIS - AUTOMATED METHOD 09/26/2024 9:57 PM EDT [facility] Squamous Epithelial, Urine 11 0 - 60 /LPF LAB URINALYSIS - AUTOMATED METHOD 09/26/2024 9:57 PM EDT [facility] Bacteria, Urine Negative Negative /HPF LAB URINALYSIS - AUTOMATED METHOD 09/26/2024 9:57 PM EDT [facility] Hyaline Casts, Urine 1.2 0 - 3 /LPF LAB URINALYSIS - AUTOMATED METHOD 09/26/2024 9:57 PM EDT [facility] Urine Urine specimen obtained by clean catch procedure / Unknown Non-blood Collection / Unknown 09/26/2024 9:44 PM EDT 09/26/2024 9:49 PM EDT Melissa VIDAL LAB URINE ORDERABLES Final Resul t Performing Organization Address City/[facility]/ZIP Co de Phone Number [facility] [address] [place] [address], [place] [phone] * Arcos urine culture tube (09/26/2024 9:44 PM EDT) Extra Tube Hold for add-ons. 09/26/2024 11:01 PM EDT [facility] Comment:Auto resulted. Urine Urine specimen obtained by clean catch procedure / Unknown Non-blood Collection / Unknown 09/26/2024 9:44 PM EDT 09/26/2024 9:49 PM EDT Melissa VIDAL LAB URINE ORDERABLES Final Resul t [facility] [address] [place] [address], [place] [phone] * Culture urine (09/26/2024 9:44 PM EDT) Culture, Urine 10,000-49,000 CFU/mL Mixed bacterial morphotypes present suggestive of possible contamination during collection. Suggest appropriate recollection if clinically indicated. 09/27/2024 1:18 PM EDT [facility] Urine Urine specimen obtained by clean catch procedure / Unknown Non-blood Collection / Unknown 09/26/2024 9:44 PM EDT 09/26/2024 9:57 PM EDT us Melissa VIDAL LAB MICROBIOLOGY - GENERAL ORDER RAFIQ Final Result [facility] [address] [place] [address], [place] [phone] * MR Brain wo Contrast (09/26/2024 6:19 PM EDT) Anatomical Region Laterality Modality Head and Neck Magnetic Resonan ce 09/26/2024 6:30 PM EDT Impressions 09/26/2024 6:30 PM EDT 1. No acute intracranial findings. This document has been electronically signed by: Lamont Harley MD on 09/26/2024 18:30:50 Narrative 09/26/2024 6:30 PM EDT INDICATION: Stroke, follow up MR brain without contrast. COMPARISON: None FINDINGS: Limited axial DWI, sagittal T2 and axial GRE sequences were performed. No abnormal diffusion restriction in the brain parenchyma or extra-axial spaces. No evidence of mass, mass effect or midline shift. No intracranial hemorrhage or abnormal extra-axial fluid collection. Small punctate area of increased gradient blooming within the right basal ganglia likely represents basal ganglia mineralization. No evidence of hydrocephalus. The basilar cisterns are patent. Cerebellar hemispheres and cerebellar vermis are normal. Fourth ventricle is normal. No brainstem abnormality is identified. Intracranial flow voids are patent. The visualized paranasal sinuses and mastoid air-cells are clear. Procedure Note Lamont Harley MD - 09/26/2024 INDICATION: Stroke, follow up MR brain without contrast. COMPARISON: None FINDINGS: Limited axial DWI, sagittal T2 and axial GRE sequences were performed. No abnormal diffusion restriction in the brain parenchyma or extra-axial spaces. No evidence of mass, mass effect or midline shift. No intracranial hemorrhage or abnormal extra-axial fluid collection.Small punctate area of increased gradient blooming within the right basal ganglia likely represents basal ganglia mineralization. No evidence of hydrocephalus. The basilar cisterns are patent. Cerebellar hemispheres and cerebellar vermis are normal. Fourthventricle is normal. No brainstem abnormality is identified. Intracranial flow voids are patent. The visualized paranasal sinuses and mastoid air-cells are clear. IMPRESSION: 1. No acute intracranial findings. This document has been electronically signed by: Lamont Harley MD on 09/26/2024 18:30:50 us Idris Chawla MD IMG MRI PROCEDURES Final Resul t * (ABNORMAL) CBC auto differential (09/26/2024 12:08 PM EDT) WBC 8.6 4.8 - 10.8 K/mcL LAB HEMETOLOGY METHOD 09/26/2024 12:27 PM EDT [facility] RBC 4.00 3.80 - 4.80 M/mcL LAB HEMETOLOGY METHOD 09/26/2024 12:27 PM EDT [facility] Hemoglobin 11.0(L) 11.5 - 16.0 g/dL LAB HEMETOLOGY METHOD [facility]2024 12:[facility] Hematocrit 36.4 35.0 - 47.0 % LAB HEMETOLOGY METHOD 09/26/2024 12:27 PM [facility] MCV 90.1 79.0 - 98.0 FL LAB HEMETOLOGY METHOD 09/26/2024 12:27 PM [facility] MCH 27.2 27.0 - 32.0 pcg LAB HEMETOLOGY METHOD 09/26/2024 12:27 PM [facility] MCHC 30.2(L) 32.0 - 37.0 g/dL LAB HEMETOLOGY METHOD 09/26/2024 12:27 PM [facility] RDW 13.6 11.0 - 15.0 % LAB HEMETOLOGY METHOD 09/26/2024 12:27 PM [facility] Platelets 218 130 - 400 K/mcL LAB HEMETOLOGY METHOD 09/26/2024 12:27 PM [facility] MPV 9.4 7.0 - 11.0 FL LAB HEMETOLOGY METHOD 09/26/2024 12:27 PM [facility] NRBC 0.0 <1.0 % LAB HEMETOLOGY METHOD 09/26/2024 12:27 PM [facility] NRBC Absolute 0.00 <0.10 K/mcL LAB HEMETOLOGY METHOD 09/26/2024 12:27 PM [facility] Neutrophils Relative 86.7 % LAB HEMETOLOGY METHOD 09/26/2024 12:27 PM [facility] Lymphocytes Relative 6.4 % LAB HEMETOLOGY METHOD 09/26/2024 12:27 PM [facility] Monocytes Relative 6.1 % LAB HEMETOLOGY METHOD 09/26/2024 12:27 PM [facility] Eosinophils Relative 0.1 % LAB HEMETOLOGY METHOD 09/26/2024 12:27 PM [facility] Basophils Relative 0.1 % LAB HEMETOLOGY METHOD 09/26/2024 12:27 PM [facility] Immature Granulocytes Relative 0.6 % LAB HEMETOLOGY METHOD 09/26/2024 12:27 PM [facility] Neutrophils Absolute 7.44(H) 1.50 - 7.00 K/mcL LAB HEMETOLOGY METHOD 09/26/2024 12:27 PM [facility] Lymphocytes Absolute 0.55(L) 1.00 - 5.00 K/mcL LAB HEMETOLOGY METHOD 09/26/2024 12:27 PM [facility] Monocytes Absolute 0.52 0.20 - 1.00 K/mcL LAB HEMETOLOGY METHOD 09/26/2024 12:27 PM EDT [facility] Eosinophils Absolute 0.01 0.00 - 0.50 K/[facility] LAB HEMETOLOGY METHOD 09/26/2024 12:27 PM EDT [facility] Basophils Absolute 0.01 0.00 - 0.20 K/[facility] LAB HEMETOLOGY METHOD 09/26/2024 12:27 PM EDT [facility] Immature Granulocytes Absolute 0.05(H) 0.00 - 0.03 K/[facility] LAB HEMETOLOGY METHOD 09/26/2024 12:27 PM EDT [facility] Blood Venous blood specimen / Unknown Venipuncture / Unknown 09/26/2024 12:08 PM EDT 09/26/2024 12:16 PM EDT Maricarmen Hatfield DO LAB BLOOD ORDERABLES Final Result [facility] [address] [place] [address], [place] [phone] * Activated partial thromboplastin time (09/26/2024 12:08 PM EDT) [facility] aPTT 29.7 24.1 - 39.3 sec LAB COAGULATION METHOD 09/26/2024 12:29 PM EDT [facility] Blood Venous blood specimen / Unknown Venipuncture / Unknown 09/26/2024 12:08 PM EDT 09/26/2024 12:16 PM EDT us Maricarmen Hatfield DO LAB BLOOD ORDERABLES Final Result [facility] [address] [place] [address], [place] [phone] * Prothrombin time with INR (09/26/2024 12:08 PM EDT) Protime 11.8 10.6 - 13.9 sec LAB COAGULATION METHOD 09/26/2024 12:29 PM EDT [facility] INR 0.9 LAB COAGULATION METHOD 09/26/2024 12:29 PM EDT [facility] Blood Venous blood specimen / Unknown Venipuncture / Unknown 09/26/2024 12:08 PM EDT 09/26/2024 12:16 PM EDT Maricarmen Hatfield DO LAB BLOOD ORDERABLES Final Result [facility] [address] [place] [address], [place] [phone] * Thyroid stimulating hormone (09/26/2024 12:08 PM EDT) [facility] TSH 1.29 0.40 - 4.00 mcIU/mL LAB CHEMISTRY METHOD 09/26/2024 6:39 PM EDT [facility] Blood Venous blood specimen / Unknown Venipuncture / Unknown 09/26/2024 12:08 PM EDT 09/26/2024 12:16 PM EDT us Melissa IVDAL LAB BLOOD ORDERABLES Final Resul t [facility] [address] [place] [address], [place] [phone] * Thyroxine free (09/26/2024 12:08 PM EDT) Free T4 1.14 0.70 - 1.80 ng/dL LAB CHEMISTRY METHOD 09/26/2024 6:39 PM EDT [facility] Blood Venous blood specimen / Unknown Venipuncture / Unknown 09/26/2024 12:08 PM EDT 09/26/2024 12:16 PM EDT us Melissa Stacy PA LAB BLOOD ORDERABLES Final Resul t Performing Organization Address [facility]/ZIP Co de Phone Number [facility] [address] [place] [address], * (ABNORMAL) POCT Glucose, blood (09/26/2024 11:46 AM EDT) Glucose POCT 126(H) 70 - 100 mg/dL 09/26/2024 11:47 AM EDT [facility] Blood Capillary blood specimen / Unknown 09/26/2024 11:46 AM EDT 09/26/2024 11:48 AM EDT Maricarmen Hatfield DO LAB POINT OF CARE T EST DOCKED DEVICE UNSOLICITED RESULTS Final Result Performing Organization Address [facility] Co de Phone Number [facility] [address] [place] [address], * CT Angio Head/Neck Stroke wo and/or w Contrast (09/26/2024 11:24 AM EDT) Anatomical Region Laterality Modality Head and Neck Computed Tomogra phy 09/26/2024 11:5 7 AM EDT Impressions 09/26/2024 12:06 PM EDT 1. No large vessel occlusion, intracranial aneurysm, dissection, or hemodynamically significant cervical carotid stenosis. 2. 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 [employer] VIDAL ([id number]) -------- FINAL REPORT -------- Dictated By: Jhoana Chase Dictated Date: 09/26/2024 11:57 ET Assigned Physician: Jhoana Chase Reviewed and Electronically Signed By: Jhoana Chase Signed Date: 09/26/2024 12:06 ET Workstation ID: [id number] Transcribed By: Self Edit Transcribed Date: 09/26/2024 11:57 ET Narrative 09/26/2024 12:06 PM EDT History: Stroke. Comparison: Noncontrast brain CT from immediately prior. Technique: Helical volumetric imaging of the head and neck was performed, during the rapid, uneventful intravenous administration of 90cc's Isovue-370, using the CT angiography protocol tailored for evaluation of the neck and intracranial vasculature. Coronal and sagittal images were reformatted from the original data set and maximum intensity pixel images were reviewed, in multiple planes. Delayed postcontrast axial imaging through the brain was also performed. DLP: 2522.84 mGy/cm [employer] Iterative reconstruction technique FINDINGS: CTA: INTRACRANIAL VASCULATURE: The bilateral A1 and M1 segments are widely patent. The more distal branches of the anterior and middle cerebral arteries also appear patent. The basilar artery is widely patent and terminates in the bilateral survey compiler. The right LAY OUT MAKER is partially supplied by the right internal carotid artery, an anatomic variant. No large vessel occlusion or aneurysm is seen. The major intracranial venous sinuses are patent. AORTIC ARCH: There is a three-vessel aortic arch branching pattern with widely patent arch vessel origins. A small fusiform aneurysm of the aortic arch, distal to the left subclavian artery origin, measures 3.4 cm in diameter. Minimal mural calcification is noted. RIGHT CAROTID ARTERY: The right common, internal and external carotid arteries are widely patent. There is no hemodynamically significant narrowing of the cervical carotid artery based on NASCET criteria. Minimal atherosclerotic calcification of the carotid bulb is seen. No carotid dissection is identified. LEFT CAROTID ARTERY: The left common, internal and external carotid arteries are widely patent. Minimal atherosclerotic calcification is seen at the level of the carotid bulb, without hemodynamically significant narrowing by NASCET criteria. No carotid dissection is seen. VERTEBRAL ARTERIES: The bilateral vertebral arteries are codominant and widely patent throughout their course, terminating in the basilar artery. No vertebral dissection is seen. Ancillary Findings: Cervical spine anterior discectomy and fusion sequela are noted. Procedure Note Jhoana Chase MD - 09/26/2024 History: Stroke. Comparison: Noncontrast brain CT from immediately prior. Technique: Helical volumetric imaging of the head and neck was performed,during the rapid, uneventful intravenous administration of 90cc'sIsovue-370, using the CT angiography protocol tailored for evaluation ofthe neck and intracranial vasculature. Coronal and sagittal images werereformatted from the original data set and maximum intensity pixel imageswere reviewed, in multiple planes. Delayed postcontrast axial imaging through the brain was also performed. DLP: 2522.84 mGy/cm [employer] VCT Iterative reconstruction technique FINDINGS: CTA: INTRACRANIAL VASCULATURE: The bilateral A1 and M1 segments are widelypatent. The more distal branches of the anterior and middle cerebralarteries also appear patent. The basilar artery is widely patent andterminates in the bilateral survey compiler. The right LAY OUT MAKER is partially supplied bythe right internal carotid artery, an anatomic variant. No large vessel occlusion or aneurysm is seen. The major intracranial venous sinuses are patent. AORTIC ARCH: There is a three-vessel aortic arch branching pattern withwidely patent arch vessel origins. A small fusiform aneurysm of the aorticarch, distal to the left subclavian artery origin, measures 3.4 cm indiameter. Minimal mural calcification is noted. RIGHT CAROTID ARTERY: The right common, internal and external carotidarteries are widely patent. There is no hemodynamically significantnarrowing of the cervical carotid artery based on NASCET criteria. Minimalatherosclerotic calcification of the carotid bulb is seen. No carotiddissection is identified. LEFT CAROTID ARTERY: The left common, internal and external carotidarteries are widely patent. Minimal atherosclerotic calcification is seenat the level of the carotid bulb, without hemodynamically significantnarrowing by NASCET criteria. No carotid dissection is seen. VERTEBRAL ARTERIES: The bilateral vertebral arteries are codominant andwidely patent throughout their course, terminating in the basilar artery.No vertebral dissection is seen. Ancillary Findings: Cervical spine anterior discectomy and fusion sequela are noted. IMPRESSION: 1. No large vessel occlusion, intracranial aneurysm, dissection, orhemodynamically significant cervical carotid stenosis. 2. 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 [employer] PA ([id number]) -------- FINAL REPORT -------- Dictated By: Jhoana Chase Dictated Date: 09/26/2024 11:57 ET Assigned Physician: Jhoana Chase Reviewed and Electronically Signed By: Jhoana Chase Signed Date: 09/26/2024 12:06 ET Workstation ID: [id number] Transcribed By: Self Edit Transcribed Date: 09/26/2024 11:57 ET us Maricarmen Hatfield DO IMG CT PROCEDURES Final Res ult * CT Head Stroke wo Contrast (09/26/2024 11:24 AM EDT) Anatomical Region Laterality Modality Head and Neck Computed Tomogra phy 09/26/2024 11:4 1 AM EDT Impressions 09/26/2024 11:45 AM EDT Impression: No acute hemorrhage or intracranial mass effect. No significant change. The findings were conveyed to the referring provider at the time of interpretation on 09/26/24 by secure message ([employer]). [employer] YOUNG ([id number]) A Critical Document Only message has been documented for the office of MARICARMEN HATFIELD in the [employer] system on 09/26/2024 11:45 AM, Message ID [id number]. -------- FINAL REPORT -------- Dictated By: Jhoana Chase Dictated Date: 09/26/2024 11:41 ET Assigned Physician: Jhoana Chase Reviewed and Electronically Signed By: Jhoana Chase Signed Date: 09/26/2024 11:45 ET Workstation ID: [id number] Transcribed By: Self Edit Transcribed Date: 09/26/2024 11:41 ET Narrative 09/26/2024 11:45 AM EDT History: Stroke. Severe headache. Nausea. Altered mental status. Comparison: 09/16/16 Technique: Contiguous axial images were obtained at 2.5 mm intervals through the posterior fossa and at 5 mm intervals through the remainder of the brain without intravenous contrast. DLP: 808.85 mGy/cm [employer] VCT Iterative reconstruction technique Findings: The ventricular system remains normal in size and configuration. Arcos-white differentiation is maintained. No abnormal intra- or extra-axial masses or fluid collections are seen. There is no evidence of acute intracranial hemorrhage. Minimal mucoperiosteal thickening is seen within the partially imaged paranasal sinuses. The included portions of the mastoid air cells are clear. The calvarium is intact. Procedure Note Jhoana Chase MD - 09/26/2024 History: Stroke. Severe headache. Nausea. Altered mental status. Comparison: 09/16/16 Technique: Contiguous axial images were obtained at 2.5 mm intervalsthrough the posterior fossa and at 5 mm intervals through the remainder ofthe brain without intravenous contrast. DLP: 808.85 mGy/cm Tiny [employer]peMusicIP VCT Iterative reconstruction technique Findings: The ventricular system remains normal in size and configuration.Arcos-white differentiation is maintained. No abnormal intra- orextra-axial masses or fluid collections are seen. There is no evidence ofacute intracranial hemorrhage. Minimal mucoperiosteal thickening is seen within the partially imagedparanasal sinuses. The included portions of the mastoid air cells areclear. The calvarium is intact. IMPRESSION: Impression: No acute hemorrhage or intracranial mass effect. No significant change. The findings were conveyed to the referring provider at the time ofinterpretation on 09/26/24 by secure message ([employer]Engine). [employer] YOUNG ([id number]) A Critical Document Only message has been documented for the office ofMARICARMEN HATFIELD in the [employer] system on09/26/2024 11:45 AM, Message ID [id number]. -------- FINAL REPORT -------- Dictated By: Jhoana Chase Dictated Date: 09/26/2024 11:41 ET Assigned Physician: Jhoana Chase Reviewed and Electronically Signed By: Jhoana Chase Signed Date: 09/26/2024 11:45 ET Workstation ID: [id number] Transcribed By: Self Edit Transcribed Date: 09/26/2024 11:41 ET Maricarmen Haftield DO IMG CT PROCEDURES Final Res ult * SCR MAMMO BI INCL CAD (06/28/2019 [...] AM EDT Narrative 06/22/2017 1:56 PM EDT [facility] Diagnostic Imaging Department [address] [place] [address] Patient: EDUARDO ENGEL D.O.B./Age/Sex: 1950 - 66 - F Unit#: [id number] Location/Status: SPDIMAM/REG CLI Mnem[facility] Ordering Physician: LITA TORRES MD [facility] Dexa Axial Skeleton - 06/22/17729 [facility] Dexa Axial Skeleton INDICATION: POST MENOPAUSE Technique: [...] placing the patient at risk for fracture. 07427 A report detailing these results has been enclosed. Dictating Physician: BEN GASTON MD Electronically Signed by: BEN GASTON MD Dic Date/Time: 06/22/17 1354 Sign date/Time: 06/22/17 1356 Procedure Note Ben Gaston MD - 03/31/2022 [facility] Diagnostic Imaging Department [address] [place] [address] Patient: ABREU EDUARDO NAGY D.O.B./Age/Sex: 1950 - 66 -F Unit#: [id number] Location/Status: SPDIMAM/REG CLI Mnemonic/Ordering Site: [facility] Ordering Physician: LITA TORRES MD [facility] Dexa Axial Skeleton - 06/22/17 - 729 [facility] Dexa Axial Skeleton INDICATION: POST MENOPAUSE Technique: Bone densitometry was performed utilizing dual energy x-ray absorptiometry (DEXA). The lumbar spine is evaluated in the AP projectionfrom L1 through L4. The proximal femora are evaluated in the AP projection bilaterally. There are no prior studies available for direct comparison at thishospital for [facility]. Findings: AP spine: Bone mineral density: 0.983 gm/cm2 T-score: -1.5 Femoral total (mean, bilateral): Bone mineral density: 0.704 gm/cm2 T-score: -2.4 Left femoral neck: Bone mineral density: 0.618 gm/cm2 T-score: -3.0 IMPRESSION: Findings suggesting osteoporosis, placing the patient at risk forfracture. 05904 A report detailing these results has been enclosed. Dictating Physician: BEN GASTON MD Electronically Signed by: BEN GASTON MD Dic Date/Time: 06/22/17 1354 Sign date/Time: 06/22/17 1356 Lita Torres MD IMG BI PROCEDURES Final Resu lt from Last 3 Months or Most Recently Relevant to Health Maintenance Insurance MEDICARE Member Subscriber Plan / Payer (Ef fective 2024-Present) Name:ABREUEDUARDO Donnelly Relation to Subscriber:Self Name:Jonah NagyEduardo Payer ID:[id number] Group ID:[id number] Type:Not on file Address: [place] [address] [place] [id number] Advance Directives * Full Code - Default (Latest Code Status on File) Date Activated Date Inactivated Comments 09/26/2024 3:05 PM 09/29/2024 6:43 PM This is orde r is used when code status has not been discussed with the patient, or code status is otherwise unknown/unconfirmed To update the patient's code status, place a code status order. Do not modify or discontinue any currently active code status orders. Care Teams Unarmed Security Guard Relationship Specialty Start Date End Date Addi Holland NP [address], [place] PCP - General Family Medicine 03/04/21
--- OUTSIDE RECORDS SUMMARY | 2024-10-17 07:57 | XMS_ITS | Patient Health Record ---
Author Organization [employer] Address [address] [place] [address] Care Team Providers Care Global Sales Manager Name Role Phone Macario Scott Primary Care Provider Allergies Allergen (clinical drug ingredient) Drug/Non Drug Allergy documented on EMR Reaction Allergy Type Onset Date Status tramadol Tramadol rash Drug Allergy Active Results Component Value Reference Range Notes Cardiovascular Risk Assessme nt Reviewed date:04/06/2024 12:00:17 PM Interpretation: Performing Lab:[facility] [address] [id number], Phone - [phone], Director - Bree Notes/Report: Interpretation Note Supplemental report is available. PDF . TSH reflex to T4 Reviewed date:03/31/2024 08:44:59 AM Interpretation: Performing Lab:[facility] [address] [id number], Phone - [phone], Director - Bree Notes/Report: TSH 1.770 0.450-4.500 uIU/mL Occult Blood, Fecal, IA-LAB BRENNON Reviewed date:03/31/2024 08:45:03 AM Interpretation: Performing Lab:[facility] [address] [id number], Phone - [phone], Director - Bree Notes/Report: Occult Blood, Fecal, IA Negative Negative Microalbumin/Creatinine Rati o, Random Urine-LC Reviewed date:03/31/2024 08:45:06 AM Interpretation: Performing Lab:[facility] [address] [id number], Phone - [phone], Director - Bree Notes/Report: Creatinine, Urine 122.7 Not Estab. mg/dL Albumin, Urine 12.5 Not Estab. ug/mL Alb/Creat Ratio 10 0-29 mg/g creat Normal: 0 - 29 Moderately increased: 30 - 300 Severely increased: >300 CBC With Differential/Platel et-LC-Q Reviewed date:03/31/2024 08:45:13 AM Interpretation: [facility] [address] [place] [id number], Phone - [phone], Director - Bree Notes/Report: WBC 7.0 3.4-10.8 [...] % Immature Grans (Abs) 0.0 0.0-0.1 x10E3/uL Urinalysis, Wgauwoln-WO-H Reviewed date:03/31/2024 08:45:17 AM Interpretation: Performing Lab:[address] [id number], Phone - [phone], Director - Bree Notes/Report: Specific [place] 1.020 1.005-1.030 pH 7.0 5.0-7.5 Urine-Color Yellow [...] seen /lpf Bacteria None seen None seen/Few Comprehensive Metabolic Pane l 14+eGFR-LC-Q Reviewed date:03/31/2024 08:45:20 AM Interpretation: Performing Lab:[facility], [facility] [address] [place], [place] [id number], Phone - [phone], Director - Bree Notes/Report: Glucose 82 70-99 [...] 0-40 IU/L ALT (SGPT) 9 0-32 IU/L Lipid Panel-Q-LC Reviewed date:03/31/2024 08:45:24 AM Interpretation: Performing Lab:[facility], [facility] [place], [place] [id number], Phone - [phone], Director - Bree Notes/Report: Cholesterol, Total 222 100-199 mg/dL Triglycerides 65 0-149 mg/dL HDL Cholesterol 76 >39 mg/dL VLDL Cholesterol Koby 11 5-40 mg/dL LDL Chol Calc (NIH) 135 0-99 mg/dL TSH reflex to T4 Reviewed date:04/26/2024 08:51:11 AM Interpretation: Performing Lab:[facility] [id number], Phone - [phone], Director - Bree Notes/Report: TSH 3.730 0.450-4.500 uIU/mL Microalb/Creat Ratio, Timed Ur-LC Reviewed date:04/26/2024 08:51:11 AM Interpretation: Performing Lab:[facility] [id number], Phone - [phone], Director - Bree Notes/Report: Ur.Collec. Interval 0 Creatinine, Urine 86.5 Not Estab. mg/dL Albumin, Urine 3.9 Not Estab. ug/mL Alb/Creat Ratio 4.5 0.0-30.0 ug/mg creat Alb, U Excret. Rate 0.0-20.0 ug/min No to bakari volume submitted. Unable to calculate 24 hour result. Albumin,Ur mg/day TNP Unable to calculate result since non-numeric result obtained for component test. CBC With Differential/Platel et-LC-Q Reviewed date:04/26/2024 08:51:11 AM Interpretation: Performing Lab:[address] [id number], Phone - [phone], Director - Bree Notes/Report: WBC 5.5 3.4-10.8 [...] % Immature Grans (Abs) 0.0 0.0-0.1 x10E3/uL Urinalysis, Lusiclhx-VE-F Reviewed date:04/26/2024 08:51:11 AM Interpretation: Performing Lab:[address] [id number], Phone - [phone], [facility]: Specific [place] 1.016 1.005-1.030 pH 7.0 5.0-7.5 Urine-Color Yellow [...] seen /lpf Bacteria None seen None seen/Few Comprehensive Metabolic Pane l 14+eGFR-LC-Q Reviewed date:04/26/2024 08:51:11 AM Interpretation: Performing Lab:[facility], [address] [place] [id number], Phone - [phone], Director - [facility]/Report: Glucose 94 70-99 mg/dL BUN [...] 0-40 IU/L ALT (SGPT) 10 0-32 IU/L Lipid Panel With LDL/HDL Rat io-LC Reviewed date:04/26/2024 08:51:11 AM Interpretation: Performing Lab:[facility], [address] [place] [id number], Phone - [phone], Director - Bree Notes/Report: Cholesterol, Total 232 100-199 mg/dL Triglycerides 76 0-149 mg/dL HDL Cholesterol 71 >39 mg/dL VLDL Cholesterol Koby 13 5-40 mg/dL LDL Chol Calc (NIH) 148 0-99 mg/dL LDL/HDL Ratio 2.1 0.0-3.2 ratio LDL/HDL Ratio Men Women 1/2 Avg.Risk 1.0 1.5 Avg.Risk 3.6 3.2 2X Avg.Risk 6.2 5.0 3X Avg.Risk 8.0 6.1 EKG Electrocardiogram Reviewed date:03/24/2024 02:15:49 PM Interpretation: Performing Lab: Notes/Report: Cardiovascular Risk Assessme nt Reviewed date:04/26/2024 08:51:11 AM Interpretation: Performing Lab:[facility], [address] [place] [id number], Phone - [phone], Director - Bree Notes/Report: Interpretation Note Supplemental report is available. PDF . Occult Blood, Fecal, IA-LAB BRENNON Reviewed date:05/04/2024 04:08:08 PM Interpretation: Performing Lab:[facility], [address] [place] [id number], Phone - [phone], Director - Bree Notes/Report: Occult Blood, Fecal, IA Negative Negative Reason For Referral Reason If additional kathy ting is needed, please refer back to PCP. Please fax consult notes and/or results of procedure approved to [phone]. Thanks! ~Annual Eye Exam~ Diagnosis 1 Encounter for examin ation of eyes and vision without abnormal findings (Z01.00) Referral Organization [facility] [employer] [facility] Referring Provider First Name Macario Referring Provider Last Name Tyler Referring Provider Speciality General Pr actice Referred Provider [employer] Referred Provider Specialty Organic Lab Worker Referral Priority Routine Reason Please fax consul t notes and/or results of procedure approved to [phone]. Thanks! CONSULT ONLY - MANAGED CARE ~Annual Eye Exam~ Diagnosis 1 Encounter for examin ation of eyes and vision without abnormal findings (Z01.00) Referral Organization [facility] [employer] [facility] Referring Provider First Name Macario Referring Provider Last Name Tyler Referring Provider Speciality General Pr actice Referred Provider [employer] Referred Provider Specialty Organic Lab Worker Referral Priority Routine Medications Medication SIG (Take, [...] Problem Status W/U Status Risk Notes Problem 962311067 Mixed hyperlipidemia (E78.2) Active confirmed Problem [id number] Hypertensive chronic kidney disease with stage 1 through stage 4 chronic kidney disease, or unspecified chronic kidney disease (I12.9) Active confirmed Problem 903058323 Fibromyalgia (M79.7) Active confirmed Problem 608687452 Chronic insomnia (F51.04) Active confirmed Problem 818675583 Vertigo (R42) Active confirmed Problem 258064362 Acquired hypothyroidism (E03.9) Active confirmed Problem 60046822 Migraine syndrom e (G43.909) Active confirmed Problem 388928586 CKD (chronic kidney disease), stage II (N18.2) Active confirmed GFR 75 as per lab results from Problem 8396742 Former smoker (Z87.891) Active confirmed Problem 08679469 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) Active confirmed Problem 948313231 Severe persisten t asthma without complication (J45.50) Active confirmed Vital Signs Temperature 97 degrees Fahrenheit 05/02/2024 Respiratory Rate 19 /min 05/02/2024 Oximetry 99 % 05/02/2024 Blood pressure diastolic 82 mm Hg 05/02/2024 Height 5ft2in in 05/02/2024 Blood pressure systolic 139 mm Hg 05/02/2024 Weight 140 lbs 05/02/2024 BMI 25.6 kg/m2 05/02/2024 Procedures Procedure Date Ordered Date Performed Result Body Sit e SPIROMETRY 03/24/2024 03/31/2024 N/A SPIROMETRY 05/02/2024 N/A Encounters Encounter Location Date Provider Diagnosis [facility] [address] [address] 03/24/2024 [facility] [address] [facility] [address] [place] [address] 03/24/2024 [facility] [address] [facility] [address] [place] [address] 03/31/2024 Macario Scott [facility] [address] [address] 04/24/2024 Macario Scott Essential (primary) hypertension I10 ; Mixed hyperlipidemia E78.2 and Acquired hypothyroidism E03.9 [facility] [address] [address] 03/24/2024 Macario Scott Essential (primary) hypertension I10 [...] eyes and vision without abnormal findings Z01.[address] [address] 03/31/2024 Macario Scott Hypertensive chronic kidney disease [...] of 25.0 to 25.9 in adult Z68.25 [facility] [address] [address] 05/02/2024 Macario Scott Severe persistent asthma without [...] Comprehensive Metabolic Panel 14+eGFR-LC -Q 05/02/2024 Urinalysis, Hxckbabw-OQ-T 05/02/2024 CBC With Differential/Ibmrurbf-PE-H 04/13 Mammo SCREENING MAMMO DIGITAL, SOHEILA 05/02 Mammo SCREENING MAMMO DIGITAL, SOHEILA 03/24 CHEST X-RAY (PA/LATERAL) 05/02/2024 CHEST X-RAY (PA/LATERAL) 03/24/2024 Future Test Test Name Order Date Lipid Panel With LDL/HDL Ratio-LC 2024 Comprehensive Metabolic Panel 14+eGFR-LC -Q 09/25/2024 Urinalysis, Hzczhqdj-BM-D 09/25/2024 CBC With Differential/Ixkvxzic-IZ-D 09/10 Insurance Providers Payer Name Payer Address Payer Phone Subscriber Number Group Number Insured Name Patient Relationship to Insured Coverage Start Date Coverage End Date [facility] [address] [address] [place] [address] [phone] [id number] DRIVER, [place] Self - patient is the insured Medical (General) History Medical History History ICD Code hyperension asthma sinusitis migraines thyroid Surgical History Surgery Date(Month/Year) hystrectomy total 1996 right leg n/a nose n/a carpal tunel on both hands n/a
== END 2024-10-17 07:55 | disposition home or self-care (01) ==
LOC: HO.MAMMO 07:54
PROVIDERS: Visit Provider Nurse Practitioner Family
DX: Z12.31 Encounter for screening mammogram for malignant neoplasm of breast (principal)
CPT/HCPCS: 77063; 77067

== ENCOUNTER → 2024-10-17 08:30 | Outpatient (BNV) | payer OTHER, SELFPAY | PROVIDERS: Visit Provider Internal Medicine | DX: Z12.31 Encounter for screening mammogram for malignant neoplasm of breast (principal) | CPT/HCPCS: 77063; 77067 ==

== ENCOUNTER 2024-10-19 07:45 | Outpatient (AMB) | payer OTHER, SELFPAY ==
--- OUTSIDE RECORDS SUMMARY | 2024-04-04 04:30 | XMS_ITS ---
Author Organization [facility] Address [address] [place] [address] Care Team Providers Care Training Program Developer Name Role Phone AUTUMN PADILLA Primary Care Provider REASON FOR VISIT follow up labs + MMSE Encounters Encounter Location Date Provider Diagnosis [facility] [address] [place] [address] 04/04/2024 AUTUMN BEASLEY Plan Of Treatment No Information Progress Notes * MCKENZIE Marie JORGEDO B:1950 (74 yo F)Acc No.[id number]:04/04/2024 Progress Notes Patient: Marie DUVAL Provider: Lawson BEASLEY MD :1950 A ge:73 Y S ex:Female Date:04/04/2024 Phone: Address:[address] [place], [place] [phone] Structured Data:Consent to r eceive voicemail/text messages? : YES Subjective: * Chief Complaints: * 1 . follow up labs + MMSE. * Medical History: Objective: * Vitals: Assessment: Plan: * Treatment: * Billing Information: * Visit Code: * Procedure Codes: * Electronic signature of AUTUMN BEASLEY MD on 10/19/2024 at 07:48 AM EDT Sign off status: Pending * Provider: Lawson BEASLEY MD Date: 06/05/2023 Generated for Printi ng/Faxing/eTransmitting on: 0 10/19/2024 07:48 AM EDT
--- OUTSIDE RECORDS SUMMARY | 2024-10-19 07:49 | XMS_ITS | Patient Health Record ---
Author Organization [employer]. Address [address] [place] [id number] Care Team Providers Care Labeler Name Role Phone Macario Scott Primary Care Provider Allergies Allergen (clinical drug ingredient) Drug/Non Drug Allergy documented on EMR Reaction Allergy Type Onset Date Status tramadol Tramadol rash Drug Allergy Active Results Component Value Reference Range Notes TSH reflex to T4 Reviewed date:03/31/2024 08:44:59 AM Interpretation: Performing Lab:[facility] [address] [id number], Phone - [phone], Director - MDShanita Notes/Report: TSH 1.770 0.450-4.500 uIU/mL Occult Blood, Fecal, IA-LAB BRENNON Reviewed date:03/31/2024 08:45:03 AM Interpretation: Performing Lab:[facility] [place], [address] [place] [id number], Phone - [phone], Director - MDKostasrier Notes/Report: Occult Blood, Fecal, IA Negative Negative Microalbumin/Creatinine Rati o, Random Urine-LC Reviewed date:03/31/2024 08:45:06 AM Interpretation: Performing Lab:[facility] [address] [id number], Phone - [phone], Director - MDFarrier Notes/Report: Creatinine, Urine 122.7 Not Estab. mg/dL Albumin, Urine 12.5 Not Estab. ug/mL Alb/Creat Ratio 10 0-29 mg/g creat Normal: 0 - 29 Moderately increased: 30 - 300 Severely increased: >300 CBC With Differential/Platel et-LC-Q Reviewed date:03/31/2024 08:45:13 AM Interpretation: Performing Lab:[facility] [id number], Phone - [phone], Director - Bree Notes/Report: WBC 7.0 3.4-10.8 [...] Immature Grans (Abs) 0.0 0.0-0.1 x10E3/uL Urinalysis, Znksjyrn-AG-Y Reviewed date:03/31/2024 08:45:17 AM Interpretation: Performing Lab:[address] [id number], Phone - [phone], Director - Bree Notes/Report: Specific [place] 1.020 1.005-1.030 pH 7.0 5.0-7.5 Urine-Color Yellow [...] 14+eGFR-LC-Q Reviewed date:03/31/2024 08:45:20 AM Interpretation: Performing Lab:[facility] [address] [place] [id number], Phone - [phone], Director - MDKostasrier Notes/Report: Glucose 82 70-99 mg/dL BUN 9 [...] Panel-Q-LC Reviewed date:03/31/2024 08:45:24 AM Interpretation: Performing Lab:[facility] [address] [place] [id number], Phone - [phone], Director - MDKostasrier Notes/Report: Cholesterol, Total 222 100-199 mg/dL Triglycerides 65 0-149 mg/dL HDL Cholesterol 76 >39 mg/dL VLDL Cholesterol Koby 11 5-40 mg/dL LDL Chol Calc (NIH) 135 0-99 mg/dL TSH reflex to T4 Reviewed date:04/26/2024 08:51:11 AM Interpretation: Performing Lab:[facility] [address] [place] [id number], Phone - [phone], Director - MDKostasrier Notes/Report: TSH 3.730 0.450-4.500 uIU/mL Microalb/Creat Ratio, Timed Ur-LC Reviewed date:04/26/2024 08:51:11 AM Interpretation: Performing Lab:[facility], [facility] [address] [id number], Phone - [phone], Director - Bree Notes/Report: Ur.Collec. Interval 0 [...] Reviewed date:04/26/2024 08:51:11 AM Interpretation: Performing Lab:[facility], [facility], [place] [id number], Phone - [phone], Director - Bree Notes/Report: WBC 5.5 3.4-10.8 [...] Immature Grans (Abs) 0.0 0.0-0.1 x10E3/uL Urinalysis, Dygaqdrl-TH-L Reviewed date:04/26/2024 08:51:11 AM Interpretation: Performing Lab:[address] [id number], Phone - [phone], Director - Bree Notes/Report: Specific [place] 1.016 1.005-1.030 pH 7.0 5.0-7.5 Urine-Color Yellow [...] Reviewed date:04/26/2024 08:51:11 AM Interpretation: Performing Lab:[address] [id number], Phone - [phone], Director - Bree Notes/Report: Glucose 94 70-99 [...] Reviewed date:04/26/2024 08:51:11 AM Interpretation: Performing Lab:[facility] [address] [place] [id number], Phone - [phone], Director - Bree Notes/Report: Cholesterol, Total 232 100-199 mg/dL Triglycerides 76 0-149 mg/dL HDL Cholesterol 71 >39 mg/dL VLDL Cholesterol Koby 13 5-40 mg/dL LDL Chol Calc ([facility]) 148 0-99 mg/dL LDL/HDL Ratio 2.1 0.0-3.2 ratio LDL/HDL Ratio Men Women 1/2 Avg.Risk 1.0 1.5 Avg.Risk 3.6 3.2 2X Avg.Risk 6.2 5.0 3X Avg.Risk 8.0 6.1 EKG Electrocardiogram Reviewed date:03/24/2024 02:15:49 PM Interpretation: Performing Lab: Notes/Report: Cardiovascular Risk Assessme nt Reviewed date:04/06/2024 12:00:17 PM Interpretation: Performing Lab:[facility], [address] [place] [id number], Phone - [phone], Director - Bree Notes/Report: Interpretation Note Supplemental report is available. PDF . Occult Blood, Fecal, IA-LAB BRENNON Reviewed date:05/04/2024 04:08:08 PM Interpretation: Performing Lab:[facility], [address] [place] [id number], Phone - [phone], Director - Bree Notes/Report: Occult Blood, Fecal, IA Negative Negative Cardiovascular Risk Assessme nt Reviewed date:04/26/2024 08:51:11 AM Interpretation: Performing Lab:[facility], [address] [place] [id number], Phone - [phone], Director - Bree Notes/Report: Interpretation Note Supplemental report is available. PDF . Reason For Referral Reason If additional kathy ting is needed, please refer back to PCP. Please fax consult notes and/or results of procedure approved to [phone]. Thanks! ~Annual Eye Exam~ Diagnosis 1 Encounter for examin ation of eyes and vision without abnormal findings (Z01.00) Referral 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 Referral Priority Routine Reason Please fax consul t notes and/or results of procedure approved to [phone]. Thanks! CONSULT ONLY - MANAGED CARE ~Annual Eye Exam~ Diagnosis 1 Encounter for examin ation of eyes and vision without abnormal findings (Z01.00) Referral 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 [employer] Referral Priority Routine Medications Medication SIG (Take, [...] Problem Status W/U Status Risk Notes Problem 019849932 Mixed hyperlipidemia (E78.2) Active confirmed Problem 549814100133868 Hypertensive chronic kidney disease with stage 1 through stage 4 chronic kidney disease, or unspecified chronic kidney disease (I12.9) Active confirmed Problem 009175554 Fibromyalgia (M79.7) Active confirmed Problem 417318375 Chronic insomnia (F51.04) Active confirmed Problem 198842939 Vertigo (R42) Active confirmed Problem 006412803 Acquired hypothyroidism (E03.9) Active confirmed Problem 91788062 Migraine syndrom e (G43.909) Active confirmed Problem 425918597 CKD (chronic kidney disease), stage II (N18.2) Active confirmed GFR 75 as per lab results from Problem 1715707 Former smoker (Z87.891) Active confirmed Problem 20490411 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) Active confirmed Problem 667346903 Severe persisten t asthma without complication (J45.50) [...] Result Body Sit e SPIROMETRY 05/02/2024 N/A SPIROMETRY 03/24/2024 03/31/2024 N/A Encounters Encounter Location Date Provider Diagnosis [facility] [address] [address] 03/24/2024 [facility] [address] [facility] [address] [place] [address] 03/24/2024 [facility] [address] [facility] [address] [place] [address] 03/31/2024 Macario Scott [facility] [address] [address] 04/24/2024 Macario Scott Essential (primary) hypertension I10 ; Mixed hyperlipidemia E78.2 and Acquired hypothyroidism E03.9 [facility] [address] [address] 03/24/2024 Macario Scott Essential (primary) hypertension I10 [...] eyes and vision without abnormal findings Z01.[address] [address] 03/31/2024 Macario Scott Hypertensive chronic kidney disease [...] to 25.9 in adult Z68.25 [facility] [address] [address] 05/02/2024 Macario Scott Severe persistent asthma without [...] Comprehensive Metabolic Panel 14+eGFR-LC -Q 05/02/2024 Urinalysis, Ezckuwbx-VG-T 05/02/2024 CBC With Differential/Wawvjgdy-LH-I 04/13 Mammo SCREENING MAMMO DIGITAL, SOHEILA 05/02 Mammo SCREENING MAMMO DIGITAL, SOHEILA 03/24 CHEST X-RAY (PA/LATERAL) 05/02/2024 CHEST X-RAY (PA/LATERAL) 03/24/2024 Future Test Test Name Order Date Lipid Panel With LDL/HDL Ratio-LC 2024 Comprehensive Metabolic Panel 14+eGFR-LC -Q 09/25/2024 Urinalysis, Clhsrozs-AE-L 09/25/2024 CBC With Differential/Akusnkoi-CR-U 09/10 Insurance Providers Payer Name Payer Address Payer Phone Subscriber Number Group Number Insured Name Patient Relationship to Insured Coverage Start Date Coverage End Date [facility] [address] [address] [place] [phone] [id number] [place], [place] Self - patient is the insured Medical (General) History Medical History History ICD Code hyperension asthma sinusitis migraines thyroid Surgical History Surgery Date(Month/Year) hystrectomy total 1996 right leg n/a nose n/a carpal tunel on both hands n/a
--- OUTSIDE RECORDS SUMMARY | 2024-10-19 07:49 | XMS_ITS | Clinical Summary ---
Author Organization [facility] Address [address] [place] [address] Phone Care Team Providers Care Legal Practice Manager Name Role Phone Addi Holland NP Primary [...] up to 20 days. 10 tablet 5 Active butalbital-ivana taminophen-caf feine (FIORICET, ESGIC) 50-325-40 [...] - 10/02/2024 11:59 PM EDT Hospital Encounter [facility] [address] [place] [address] Myopathy Discharge Disposition: Home or Self Care 09/26/2024 11:04 AM EDT - 09/29/2024 4:43 PM EDT Hospital Encounter [facility] [address] [place] [address] Maricarmen Hatfield DO Montano, Gary L, MD [...] TUNNEL REL UPPER GASTROINTESTINAL ENDOSCOPY 08/18/2016 PROCEDURE: [place] UPPER GI ENDOSCOPY PERFORMED; COMMENT: Erosive gastritis, [...] got money to buy more. Patient declined 025 Within the past 12 months th e food we bought just didn't last and we didn't have money to get more. Patient declined 09/10 Dependent Care Answer Date Recorded Do you need help finding or paying for care for your loved ones. For example, childcare aide or elderly care for an older adult? [...] Zoster Vaccines (3 of 3) 05/12/2019 03/17/2019, 03/07/2015 Breast Cancer Screening 06/27/2021 06/28/2019, 12/31 Colorectal [...] original result were not included. [facility] [address] [place] [address] Electromyograph Report Date of service: 10/02/24 Patient [...] original note were not included. [facility] [address] [place] [id number] Electromyograph Report Date of service: 10/02/24 Patient Name: Eduardo Nagy Date of : 1950 Age: 74 y.o. Gender: female Procedure Order: EMG two limbs Ordering Provider: YOUNG Hilario Reason for Exam: There are no answered order specific questions. Diagnosis listed on Order: Myopathy Please see scanned report for testing details and results. EDT Katelyn VIDAL NEUROLOGY ORDERABLES Hoa l Result * ECG-Annotated (09/30/2024) us Provider Onbase ECG ORDERABLES Final Result * XR Chest 1 View (09/29/2024 2:09 PM EDT) Only the most recent of2 resultswithin the time period is included. Anatomical Region Laterality Modality Body Radiographic Gillian ging 10/01/2024 10:1 0 AM EDT Impressions 10/01/2024 10:12 AM EDT Impression: 1. Stable cardiomegaly. 2. No active pulmonary process. Telerad YOUNG ([id number]) -------- FINAL REPORT -------- Dictated By: Jhoana Chase Dictated Date: 10/01/2024 10:10 ET Assigned Physician: Jhoana Chase Reviewed and Electronically Signed By: Jhoana Chase Signed Date: 10/01/2024 10:12 ET Workstation ID: [id number] Transcribed By: Self Edit Transcribed Date: 10/01/2024 [...] hardware. Procedure Note Jhoana Chase MD - 06/22/2025 History: Pulmonary edema. Comparison: 09/26/24, 12/14/23 Findings: [...] Stable cardiomegaly. 2. No active pulmonary process. Teleenio VIDAL ([id number]) -------- FINAL REPORT -------- Dictated By: Jhoana Chase Dictated Date: 10/01/2024 10:10 ET Assigned Physician: Jhoana Chase Reviewed and Electronically Signed By: Jhoana Chase Signed Date: 10/01/2024 10:12 ET Workstation ID: [id number] Transcribed By: Self Edit Transcribed Date: 10/01/2024 10:10 ET Katelyn VIDAL IMG XR PROCEDURES Final R esult * Lavender tube (09/29/2024 5:58 AM EDT) Only the most recent of2 resultswithin the time period is included. Extra Tube Hold for add-ons. 10/02/2024 9:01 AM EDT [facility] Comment:Auto resulted. Blood Venous blood specimen / Unknown Venipuncture / Unknown 09/29/2024 5:58 AM EDT 09/29/2024 6:17 AM EDT Yuval Lake MD LAB BLOOD ORDERABLES F inal Result [facility] [address] [place] [address], [place] [phone] * Magnesium (09/29/2024 5:58 AM EDT) Only the most recent of2 resultswithin the time period is included. [facility] Magnesium 2.1 1.9 - 2.6 mg/dL LAB CHEMISTRY METHOD 09/29/2024 7:05 AM EDT [facility] Blood Venous blood specimen / Unknown Venipuncture / Unknown 09/29/2024 5:58 AM EDT 09/29/2024 6:12 AM EDT [facility] LAB BLOOD ORDERABLES Hoa l Result Performing Organization Address City/[facility]/ZIP Co de Phone Number [facility] [address] [place] [address], [place] [phone] * (ABNORMAL) Creatine kinase (09/29/2024 5:58 AM EDT) Only the most recent of3 resultswithin the time period is included. [facility] Total CK 1,852(H) 22 - 269 unit/L LAB CHEMISTRY METHOD 09/29/2024 7:24 AM EDT [facility] Blood Venous blood specimen / Unknown Venipuncture / Unknown 09/29/2024 5:58 AM EDT 09/29/2024 6:12 AM EDT [facility] LAB BLOOD ORDERABLES Hoa l Result Performing Organization Address City/[facility]/ZIP Co de Phone Number [facility] [address] [place] [address], [place] [phone] * (ABNORMAL) Basic metabolic panel (09/29/2024 5:58 AM EDT) Only the most recent of3 resultswithin the time period is included. [facility] Sodium 137 133 - 145 mmol/L LAB CHEMISTRY METHOD 09/29/2024 7:05 AM EDT [facility] Potassium 4.3 3.5 - 5.5 mmol/L LAB CHEMISTRY METHOD 09/29/2024 7:05 AM [facility] Chloride 100 96 - 110 mmol/L LAB CHEMISTRY METHOD 09/29/2024 7:05 AM [facility] CO2 33(H) 21 - 32 mmol/L LAB CHEMISTRY METHOD 09/29/2024 7:05 AM [facility] Anion Gap 4 3 - 11 LAB CHEMISTRY METHOD 09/29/2024 7:05 AM [facility] Glucose 101(H) 70 - 100 mg/dL LAB CHEMISTRY METHOD 09/29/2024 7:05 AM [facility] BUN 17 5 - 25 mg/dL LAB CHEMISTRY METHOD 09/29/2024 7:05 AM [facility] Creatinine 0.76 0.50 - 1.10 mg/dL LAB CHEMISTRY METHOD 09/29/2024 7:05 AM [facility] eGFR 83 >=60 mL/min/1. 73m2 LAB CHEMISTRY METHOD 09/29/2024 7:05 AM [facility] Comment:Calculation based on the Chronic Kidney Disease Epidemiology Collaboration (CKD-EPI) equation refit without adjustment for race. BUN/Creatinine Ratio 22.4 LAB CHEMISTRY METHOD 09/29/2024 7:05 AM [facility] Calcium 9.2 8.5 - 10.5 mg/dL LAB CHEMISTRY METHOD 09/29/2024 7:05 AM [facility] Blood Venous blood specimen / Unknown Venipuncture / Unknown 09/29/2024 5:58 AM EDT 09/29/2024 6:12 AM EDT us Katelyn VIDAL LAB BLOOD ORDERABLES Hoa chavez Result [facility] [address] [place] [address], * XR Hip 1 View Left (09/28/2024 [...] Signed Date: 09/28/2024 12:51 ET Workstation ID: [id number] Transcribed By: Self Edit Transcribed Date: 09/28/2024 [...] Signed Date: 09/28/2024 12:51 ET Workstation ID: [id number] Transcribed By: Self Edit Transcribed Date: 09/28/2024 12:48 ET Katelyn VIDAL IMG XR PROCEDURES Final R esult * Phosphorus (09/28/2024 6:01 AM EDT) Phosphorus 3.1 2.5 - 4.5 mg/dL LAB CHEMISTRY METHOD 09/28/2024 7:56 AM EDT [facility] Blood Venous blood specimen / Unknown Venipuncture / Unknown 09/28/2024 6:01 AM EDT 09/28/2024 6:24 AM EDT Katelyn VIDAL LAB BLOOD ORDERABLES Hoa chavez Result [facility] [address] [place] [address], [place] [phone] * (ABNORMAL) Comprehensive metabolic panel (09/28/2024 6:01 AM EDT) Sodium 135 133 - 145 mmol/L LAB CHEMISTRY METHOD 09/28/2024 7:56 AM [facility] Potassium 3.6 3.5 - 5.5 mmol/L LAB CHEMISTRY METHOD 09/28/2024 7:56 AM [facility] Chloride 97 96 - 110 mmol/L LAB CHEMISTRY METHOD 09/28/2024 7:56 AM [facility] CO2 32 21 - 32 mmol/L LAB CHEMISTRY METHOD 09/28/2024 7:56 AM [facility] Anion Gap 6 3 - 11 LAB CHEMISTRY METHOD 09/28/2024 7:56 AM [facility] Glucose 98 70 - 100 mg/dL LAB CHEMISTRY METHOD 09/28/2024 7:56 AM [facility] BUN 17 5 - 25 mg/dL LAB CHEMISTRY METHOD 09/28/2024 7:56 AM [facility] Creatinine 0.69 0.50 - 1.10 mg/dL LAB CHEMISTRY METHOD 09/28/2024 7:56 AM [facility] eGFR 92 >=60 mL/min/1. 73m2 LAB CHEMISTRY METHOD 09/28/2024 7:56 AM [facility] Comment:Calculation based on the Chronic Kidney Disease Epidemiology Collaboration (CKD-EPI) equation refit without adjustment for race. BUN/Creatinine Ratio 24.6 LAB CHEMISTRY METHOD 09/28/2024 7:56 AM [facility] Calcium 9.4 8.5 - 10.5 mg/dL LAB CHEMISTRY METHOD 09/28/2024 7:56 AM [facility] AST (SGOT) 77(H) 10 - 42 unit/L LAB CHEMISTRY METHOD 09/28/2024 7:56 AM [facility] ALT (SGPT) 30 10 - 60 unit/L LAB CHEMISTRY METHOD 09/28/2024 7:56 AM [facility] Alkaline Phosphatase 69 42 - 121 unit/L LAB CHEMISTRY METHOD 09/28/2024 7:56 AM [facility] Total Protein 6.0 6.0 - 8.0 g/dL LAB CHEMISTRY METHOD 09/28/2024 7:56 AM [facility] Albumin 3.4 3.2 - 5.0 g/dL LAB CHEMISTRY METHOD 09/28/2024 7:56 AM [facility] Total Bilirubin 0.5 0.0 - 1.4 mg/dL LAB CHEMISTRY METHOD 09/28/2024 7:56 AM [facility] Blood Venous blood specimen / Unknown Venipuncture / Unknown 09/28/2024 6:01 AM EDT 09/28/2024 6:24 AM EDT Katelyn VIDAL LAB BLOOD ORDERABLES Hoa chavez Result [facility] [address] [place] [address], * (ABNORMAL) Drug abuse screen 8a panel, urine (09/27/2024 4:23 PM EDT) Amphetamine Screen, Ur Negative Negative LAB CHEMISTRY METHOD 7:18 PM EDT [facility] Comment:Certain OTC medicati ons containing ephedrine, phenylephrine, pseudoephedrine and phenylpropanolamine can cause false positive results. Barbiturate Screen, Ur Negative Negative LAB CHEMISTRY METHOD 5 7:18 PM EDT [facility] Benzodiazepine Screen, Ur Negative Negative LAB CHEMISTRY METHOD 5 7:18 PM EDT [facility] Cocaine Screen, Ur Negative Negative LAB CHEMISTRY METHOD 5 7:18 PM EDT [facility] Opiate Screen, Ur Positive(A ) Negative LAB CHEMISTRY METHOD 5 7:18 PM EDT [facility] Cannabinoid (THC) Screen, Ur Negative Negative LAB CHEMISTRY METHOD 5 7:18 PM EDT [facility] Comment:Specimens from patie nts taking pantoprazole sodium (Protonix) have been shown to produce false positive results. Oxycodone Screen, Ur Negative Negative LAB CHEMISTRY METHOD 5 7:18 PM EDT [facility] Fentanyl, Ur Negative Negative LAB CHEMISTRY METHOD 5 7:18 PM T [facility] Urine Urine specimen obtained by clean catch procedure / Unknown Non-blood Collection / Unknown 09/27/2024 4:23 PM EDT 09/27/2024 6:30 PM EDT Narrative [facility] - 09/27/2024 7:18 PM EDT Assay cutoffs: Amphetamines 1000 ng/mL Barbiturates 200 ng/mL Benzodiazepines 200 ng/mL Cocaine 300 ng/mL Fentanyl 1 ng/mL Opiates 300 ng/mL Oxycodone 100 ng/mL THC 50 ng/mL Semi-quantitative assay for screening purposes only. Unconfirmed screening result should not be used for non-medical purposes. *ALTERNATE METHOD CONFIRMATION DONE UPON REQUEST ONLY* Katelyn VIDAL LAB URINE ORDERABLES Hoa chavez Result [facility] [address] [place] [address], [place] [phone] * (ABNORMAL) Aldolase (09/27/2024 1:41 PM EDT) Aldolase 20.6(H) 1.2 - 7.6 U/L 10/03/2024 9:54 AM EDT [facility] Comment: Test performed at [facility], [address] , [place] [address] Alisha Jesus MD, PhD - [employer] Blood Venous blood specimen / Unknown Venipuncture / Unknown 09/27/2024 1:41 PM EDT 09/27/2024 2:09 PM EDT Katelyn Potts [place] LAB BLOOD ORDERABLES Hoa l Result [facility] [address] [place] [address] * (ABNORMAL) TRANSTHORACIC ECHOCARDIOGRAM (TTE) COMPLETE (09/27/2024 1:21 PM EDT) Left Atrium Minor [place] 5.3 cm CV PACS Left Atrium Major [place] 5.3 cm CV PACS LA Area Sys [...] Volume 64 mL CV PACS MV Deceleration [place] 4.0 m/s2 CV PACS E Wave Deceleration [...] of2 resultswithin the time period is included. [facility] High Sensitivity Troponin I 152(HH) <=54 ng/L LAB CHEMISTRY METHOD 09/27/2024 11:02 AM EDT [facility] Blood Venous blood specimen / Unknown Venipuncture / Unknown 09/27/2024 10:20 AM EDT 09/27/2024 10:26 AM EDT Narrative [facility] - 09/27/2024 11:02 AM EDT High levels of biotin in samples may falsely decrease hsTroponin values. Use caution when interpreting hsTroponin results in patients taking biotin who exhibit renal impairment (eGFR <60) or in patients taking more than 20 mg/day of biotin. us Katelyn VIDAL LAB BLOOD ORDERABLES Hoa chavez Result [facility] [address] [place] [address], [place] [phone] * (ABNORMAL) Lipid panel with reflex to direct LDL (09/27/2024 10:20 AM EDT) Only the most recent of2 resultswithin the time period is included. Cholesterol 234(H) 0 - 200 mg/dL LAB CHEMISTRY METHOD 09/27/2024 12:46 PM EDT [facility] Triglycerides 71 0 - 150 mg/dL LAB CHEMISTRY METHOD 09/27/2024 12:46 PM EDT [facility] HDL 79 >=40 mg/dL LAB CHEMISTRY METHOD 09/27/2024 12:46 PM EDT [facility] LDL Calculated 141(H) 0 - 100 mg/dL LAB CHEMISTRY METHOD 09/27/2024 12:46 PM EDT [facility] VLDL Cholesterol Koby 14.2 mg/dL LAB CHEMISTRY METHOD 09/27/2024 12:46 PM EDT [facility] Non HDL Chol. (LDL+VLDL) 155(H) <145 mg/dL LAB CHEMISTRY METHOD 09/27/2024 12:46 PM EDT [facility] Chol/HDL Ratio 3.0 0.0 - 4.4 LAB CHEMISTRY METHOD 09/27/2024 12:46 PM EDT [facility] Blood Venous blood specimen / Unknown Venipuncture / Unknown 09/27/2024 10:20 AM EDT 09/27/2024 10:25 AM EDT [facility] LAB BLOOD ORDERABLES Hoa l Result Performing Organization Address City/[facility]/ZIP Co de Phone Number [facility] [address] [place] [address], [place] [phone] * Sedimentation rate (09/27/2024 10:20 AM EDT) Sed Rate 23 0 - 30 mm/hr LAB HEMETOLOGY METHOD 09/27/2024 10:39 AM EDT [facility] Blood Venous blood specimen / Unknown Venipuncture / Unknown 09/27/2024 10:20 AM EDT 09/27/2024 10:25 AM EDT [facility] LAB BLOOD ORDERABLES Hoa l Result Performing Organization Address [facility] de Phone Number [facility] [address] [place] [address], [place] [phone] * C reactive protein, high sensitivity (09/27/2024 10:20 AM EDT) CRP, High Sensitivity 21.90 mg/L LAB CHEMISTRY METHOD 09/27/2024 11:35 AM EDT [facility] Comment: Cardio CRP Relative Risk [...] ORDERABLES Final Resul t Performing Organization Address [facility]/ZIP Co de Phone Number [facility] [address] [place] [address], [place] [phone] * (ABNORMAL) Lipase (09/27/2024 10:20 AM EDT) [facility] Lipase 12(L) 13 - 75 unit/L LAB CHEMISTRY METHOD 09/27/2024 10:57 AM EDT [facility] Blood Venous blood specimen / Unknown Venipuncture / Unknown 09/27/2024 10:20 AM EDT 09/27/2024 10:25 AM EDT Katelyn VIDAL LAB BLOOD ORDERABLES Hoa l Result Performing Organization Address City/[facility]/ZIP Co de Phone Number [facility] [address] [place] [address], [place] [phone] * (ABNORMAL) Hepatic function panel (09/27/2024 10:20 AM EDT) [facility] Total Protein 6.8 6.0 - 8.0 g/dL LAB CHEMISTRY METHOD 09/27/2024 10:57 AM EDT [facility] Albumin 3.8 3.2 - 5.0 g/dL LAB CHEMISTRY METHOD 09/27/2024 10:57 AM EDT [facility] Total Bilirubin 0.5 0.0 - 1.4 mg/dL LAB CHEMISTRY METHOD 09/27/2024 10:57 AM EDT [facility] Bilirubin, Direct 0.1 0.0 - 0.3 mg/dL LAB CHEMISTRY METHOD 09/27/2024 10:57 AM EDT [facility] Bilirubin, Indirect 0.4 0.0 - 1.1 mg/dL LAB CHEMISTRY METHOD 09/27/2024 10:57 AM EDT [facility] ALT (SGPT) 32 10 - 60 unit/L LAB CHEMISTRY METHOD 09/27/2024 10:57 AM EDT [facility] AST (SGOT) 86(H) 10 - 42 unit/L LAB CHEMISTRY METHOD 09/27/2024 10:57 AM EDT [facility] Alkaline Phosphatase 78 42 - 121 unit/L LAB CHEMISTRY METHOD 09/27/2024 10:57 AM EDT [facility] Blood Venous blood specimen / Unknown Venipuncture / Unknown 09/27/2024 10:20 AM EDT 09/27/2024 10:25 AM EDT Katelyn VIDAL LAB BLOOD ORDERABLES Hoa l Result Performing Organization Address [facility] de Phone Number [facility]) [facility] [address] [place] [address], [place] [phone] * ECG 12 lead (09/27/2024 10:00 AM EDT) Only the most recent of2 resultswithin the time period is included. Ventricular Rate ECG 66 BPM GEMUSE Atrial Rate 66 BPM GEMUSE P-R Interval 146 ms GEMUSE QRS Duration 86 ms GEMUSE Q-T Interval 392 ms GEMUSE QTc 410 ms GEMUSE P Wave [place] 47 degrees GEMUSE R [place] -6 degrees GEMUSE T [place] 19 degrees GEMUSE ECG Interpretation Normal sinus rhythm Normal ECG When compared with ECG of 26-SEP-2024 11:50, No significant change was found Confirmed by SARITA DIAL ([id number]) on 09/28/2024 2:47:33 PM GEMUSE 09/27/2024 10:0 0 AM EDT 09/28/2024 2:47 PM EDT Katelyn VIDAL ECG ORDERABLES Final Res ult GEMUSE * SST tube (09/27/2024 8:11 AM EDT) Pathologist [facility] Extra Tube Hold for add-ons. 09/27/2024 10:01 AM EDT [facility] Comment:Auto resulted. Blood Venous blood specimen / Unknown 09/27/2024 8:11 AM EDT 09/27/2024 8:17 AM EDT Yuval Lake MD LAB BLOOD ORDERABLES F inal Result Performing Organization Address [facility]/ZIP Co de Phone Number [facility] [address] [place] [address], [place] [phone] * JAIME IFA with titer and pattern (09/27/2024 8:11 AM EDT) Pathologist [facility] [place] JAIME Negative Negative 09/27/2024 2:53 PM EDT [facility] Blood Venous blood specimen / Unknown 09/27/2024 8:11 AM EDT 09/27/2024 8:17 AM EDT us Katelyn VIDAL LAB BLOOD ORDERABLES Hoa l Result Performing Organization Address [facility] Co de Phone Number [facility] [address] [place] [address], [place] [phone] * (ABNORMAL) B-type natriuretic peptide (09/27/2024 8:11 AM EDT) BNP 120(H) <=100 pcg/mL LAB CHEMISTRY METHOD 09/27/2024 8:59 AM EDT [facility] Blood Venous blood specimen / Unknown Venipuncture / Unknown 09/27/2024 8:11 AM EDT 09/27/2024 8:16 AM EDT [facility] Hoa l Result [facility] [address] [place] [address], [place] [phone] * (ABNORMAL) Creatine kinase and CKMB (09/27/2024 8:11 AM EDT) Pathologist [facility] [place] Total CK 3,151(H) 22 - 269 unit/L LAB CHEMISTRY METHOD 09/27/2024 9:49 AM EDT [facility] Comment:Results verified by repeat testing CK-MB 6.1(H) 1.0 - 3.6 ng/mL LAB CHEMISTRY METHOD 09/27/2024 9:49 AM EDT [facility] CK-MB Index 0.0 0.0 - 5.0 LAB CHEMISTRY METHOD 09/27/2024 9:49 AM EDT [facility] Blood Venous blood specimen / Unknown 09/27/2024 8:11 AM EDT 09/27/2024 8:17 AM EDT [facility] LAB BLOOD ORDERABLES Hoa l Result Performing Organization Address City/[facility]/ZIP Co de Phone Number [facility] [address] [place] [address], [place] [phone] * (ABNORMAL) Complete blood count (09/27/2024 6:19 AM EDT) [facility] WBC 7.8 4.8 - 10.8 K/mcL LAB HEMETOLOGY METHOD 09/27/2024 6:50 AM EDT [facility] RBC 3.80 3.80 - 4.80 M/mcL LAB HEMETOLOGY METHOD 09/27/2024 6:50 AM EDT [facility] Hemoglobin 10.4(L) 11.5 - 16.0 g/dL LAB HEMETOLOGY METHOD 09/27/2024 6:50 AM EDT [facility] Hematocrit 33.4(L) 35.0 - 47.0 % LAB HEMETOLOGY METHOD 09/27/2024 6:50 AM EDT [facility] MCV 87.4 79.0 - 98.0 FL LAB HEMETOLOGY METHOD 09/27/2024 6:50 AM EDT [facility] MCH 27.2 27.0 - 32.0 pcg LAB HEMETOLOGY METHOD 09/27/2024 6:50 AM EDT [facility] MCHC 31.1(L) 32.0 - 37.0 g/dL LAB HEMETOLOGY METHOD 09/27/2024 6:50 AM EDT [facility] RDW 13.9 11.0 - 15.0 % LAB HEMETOLOGY METHOD 09/27/2024 6:50 AM EDT [facility] Platelets 208 130 - 400 K/mcL LAB HEMETOLOGY METHOD 09/27/2024 6:50 AM EDT [facility] MPV 9.9 7.0 - 11.0 FL LAB HEMETOLOGY METHOD 09/27/2024 6:50 AM EDT [facility] NRBC 0.0 <1.0 % LAB HEMETOLOGY METHOD 09/27/2024 6:50 AM EDT [facility] NRBC Absolute 0.00 <0.10 K/mcL LAB HEMETOLOGY METHOD 09/27/2024 6:50 AM T [facility] Blood Venous blood specimen / Unknown Venipuncture / Unknown 09/27/2024 6:19 AM EDT 09/27/2024 6:29 AM EDT us Idris Chawla MD LAB BLOOD ORDERABLES Final Res ult [facility] [address] [place] [address], * (ABNORMAL) Urinalysis with reflex microscopic and culture (09/26/2024 9:44 PM EDT) Specific [place] Urine 1.019 1.003 - 1.030 LAB URINALYSIS - AUTOMATED METHOD 09/26/2024 9:57 PM [facility] pH, Urine 5.5 5.0 - 8.0 pH LAB URINALYSIS - AUTOMATED METHOD 09/26/2024 9:57 PM [facility] Leukocytes, Urine Small(A) Negative LAB URINALYSIS - AUTOMATED METHOD 09/26/2024 9:57 PM [facility] Nitrite, Urine Negative Negative LAB URINALYSIS - AUTOMATED METHOD 09/26/2024 9:57 PM [facility] Protein, Urine Negative <=Trace mg/dL LAB URINALYSIS - AUTOMATED METHOD 09/26/2024 9:57 PM [facility] Glucose, Urine Negative Negative mg/dL LAB URINALYSIS - AUTOMATED METHOD 09/26/2024 9:57 PM [facility] Ketones, Urine Trace(A) Negative mg/dL LAB URINALYSIS - AUTOMATED METHOD 09/26/2024 9:57 PM [facility] Urobilinogen, Urine 0.2 0.2 - 1.0 mg/dL LAB URINALYSIS - AUTOMATED METHOD 09/26/2024 9:57 PM [facility] Bilirubin, Urine Negative Negative LAB URINALYSIS - AUTOMATED METHOD 09/26/2024 9:57 PM [facility] Blood, Urine Negative Negative LAB URINALYSIS - AUTOMATED METHOD 09/26/2024 9:57 PM [facility] RBC, Urine 2.4 0 - 4 /HPF LAB URINALYSIS - AUTOMATED METHOD 09/26/2024 9:57 PM [facility] WBC, Urine 3.0 0 - 4 /HPF LAB URINALYSIS - AUTOMATED METHOD 09/26/2024 9:57 PM EDT [facility] Squamous Epithelial, Urine 11 0 - 60 /LPF LAB URINALYSIS - AUTOMATED METHOD 09/26/2024 9:57 PM EDT [facility] Bacteria, Urine Negative Negative /HPF LAB URINALYSIS - AUTOMATED METHOD 09/26/2024 9:57 PM EDT [facility] Hyaline Casts, Urine 1.2 0 - 3 /LPF LAB URINALYSIS - AUTOMATED METHOD 09/26/2024 9:57 PM EDT [facility] Urine Urine specimen obtained by clean catch procedure / Unknown Non-blood Collection / Unknown 09/26/2024 9:44 PM EDT 09/26/2024 9:49 PM EDT Melissa VIDAL LAB URINE ORDERABLES Final Resul t Performing Organization Address [facility]/ZIP Co de Phone Number [facility] [address] [place] [address], [place] [phone] * Arcos urine culture tube (09/26/2024 9:44 PM EDT) Extra Tube Hold for add-ons. 09/26/2024 11:01 PM EDT [facility] Comment:Auto resulted. Urine Urine specimen obtained by clean catch procedure / Unknown Non-blood Collection / Unknown 09/26/2024 9:44 PM EDT 09/26/2024 9:49 PM EDT Melissa VIDAL LAB URINE ORDERABLES Final Resul t Performing Organization Address City/[facility]/ZIP Co de Phone Number [facility] [address] [place] [address], [place] [phone] * Culture urine (09/26/2024 9:44 PM EDT) Culture, Urine 10,000-49,000 CFU/mL Mixed bacterial morphotypes present suggestive of possible contamination during collection. Suggest appropriate recollection if clinically indicated. 09/27/2024 1:18 PM EDT [facility] Urine Urine specimen obtained by clean catch procedure / Unknown Non-blood Collection / Unknown 09/26/2024 9:44 PM EDT 09/26/2024 9:57 PM EDT us Melissa [facility] MICROBIOLOGY - GENERAL ORDER RAFIQ Final Result [facility] [address] [place] [address], [place] [phone] * MR Brain wo Contrast (09/26/2024 6:19 [...] by: Lamont Harley MD on 09/26/2024 18:30:50 Idris Chawla MD IM MRI PROCEDURES Final Resul t * (ABNORMAL) CBC auto differential (09/26/2024 12:08 PM EDT) WBC 8.6 4.8 - 10.8 K/mcL LAB [facility]EMETOLOGY [facility] RBC 4.00 3.80 - 4.80 M/mcL LAB HEMETOLOGY METHOD 09/26/2024 12:27 PM EDT [facility] Hemoglobin 11.0(L) 11.5 - 16.0 g/dL LAB HEMETOLOGY METHOD 09/26/2024 12:27 PM [facility] Hematocrit 36.4 35.0 - 47.0 % LAB HEMETOLOGY METHOD 09/26/2024 12:27 PM [facility] MCV 90.1 79.0 - 98.0 FL LAB HEMETOLOGY METHOD 09/26/2024 12:27 PM EDT [facility] MCH 27.2 27.0 - 32.0 pcg LAB HEMETOLOGY METHOD 09/26/2024 12:27 PM [facility] MCHC 30.2(L) 32.0 - 37.0 g/dL LAB HEMETOLOGY METHOD 09/26/2024 12:27 PM [facility] RDW 13.6 11.0 - 15.0 % LAB HEMETOLOGY METHOD 09/26/2024 12:27 PM [facility] Platelets 218 130 - 400 K/mcL LAB HEMETOLOGY METHOD 09/26/2024 12:27 PM [facility] MPV 9.4 7.0 - 11.0 FL LAB HEMETOLOGY METHOD 09/26/2024 12:27 PM [facility] NRBC 0.0 <1.0 % LAB HEMETOLOGY METHOD 09/26/2024 12:27 PM [facility] NRBC Absolute 0.00 <0.10 K/mcL LAB HEMETOLOGY METHOD 09/26/2024 12:27 PM [facility] Neutrophils Relative 86.7 % LAB HEMETOLOGY METHOD 09/26/2024 12:27 PM [facility] Lymphocytes Relative 6.4 % LAB HEMETOLOGY METHOD 09/26/2024 12:27 PM [facility] Monocytes Relative 6.1 % LAB HEMETOLOGY METHOD 09/26/2024 12:27 PM [facility] Eosinophils Relative 0.1 % LAB HEMETOLOGY METHOD 09/26/2024 12:27 PM [facility] Basophils Relative 0.1 % LAB HEMETOLOGY METHOD 09/26/2024 12:27 PM [facility] Immature Granulocytes Relative 0.6 % LAB HEMETOLOGY METHOD 09/26/2024 12:27 PM [facility] Neutrophils Absolute 7.44(H) 1.50 - 7.00 K/mcL LAB HEMETOLOGY METHOD 09/26/2024 12:27 PM [facility] Lymphocytes Absolute 0.55(L) 1.00 - 5.00 K/mcL LAB HEMETOLOGY METHOD 09/26/2024 12:27 PM [facility] Monocytes Absolute 0.52 0.20 - 1.00 K/mcL LAB HEMETOLOGY METHOD 09/26/2024 12:27 PM EDT [facility] Eosinophils Absolute 0.01 0.00 - 0.50 K/[facility] HEMETOLOGY METHOD 09/26/2024 12:27 PM EDT [facility] Basophils Absolute 0.01 0.00 - 0.20 K/[facility] LAB HEMETOLOGY METHOD 09/26/2024 12:27 PM EDT [facility] Immature Granulocytes Absolute 0.05(H) 0.00 - 0.03 K/[facility] LAB HEMETOLOGY METHOD 09/26/2024 12:27 PM EDT [facility] Blood Venous blood specimen / Unknown Venipuncture / Unknown 09/26/2024 12:08 PM EDT 09/26/2024 12:16 PM EDT Maricarmen Hatfield DO LAB BLOOD ORDERABLES Final Result Performing Organization Address City/[facility]/ZIP Co de Phone Number [facility] [address] [place] [address], [place] [phone] * Activated partial thromboplastin time (09/26/2024 12:08 PM EDT) [facility] aPTT 29.7 24.1 - 39.3 sec LAB COAGULATION METHOD 09/26/2024 12:29 PM EDT [facility] Blood Venous blood specimen / Unknown Venipuncture / Unknown 09/26/2024 12:08 PM EDT 09/26/2024 12:16 PM EDT Maricarmen Hatfield DO LAB BLOOD ORDERABLES Final Result [facility] [address] [place] [address], [place] [phone] * Prothrombin time with INR (09/26/2024 12:08 PM EDT) [facility] Protime 11.8 10.6 - 13.9 sec LAB COAGULATION METHOD 09/26/2024 12:29 PM EDT [facility] INR 0.9 LAB COAGULATION METHOD 09/26/2024 12:29 PM EDT [facility] Blood Venous blood specimen / Unknown Venipuncture / Unknown 09/26/2024 12:08 PM EDT 09/26/2024 12:16 PM EDT Maricarmen Hatfield DO LAB BLOOD ORDERABLES Final Result Performing Organization Address [facility]/ZIP Co de Phone Number [facility] [address] [place] [address], [place] [phone] * Thyroid stimulating hormone (09/26/2024 12:08 PM EDT) TSH 1.29 0.40 - 4.00 mcIU/mL LAB CHEMISTRY METHOD 09/26/2024 6:39 PM EDT [facility] Blood Venous blood specimen / Unknown Venipuncture / Unknown 09/26/2024 12:08 PM EDT 09/26/2024 12:16 PM EDT Melissa [facility] BLOOD ORDERABLES Final Resul t Performing Organization Address [facility]/ZIP Co de Phone Number [facility] [address] [place] [address], [place] [phone] * Thyroxine free (09/26/2024 12:08 PM EDT) Free T4 1.14 0.70 - 1.80 ng/dL LAB CHEMISTRY METHOD 09/26/2024 6:39 PM EDT [facility] Blood Venous blood specimen / Unknown Venipuncture / Unknown 09/26/2024 12:08 PM EDT 09/26/2024 12:16 PM EDT Melissa [facility] BLOOD ORDERABLES Final Resul t Performing Organization Address [facility]/ZIP Co de Phone Number [facility] [address] [place] [address], * (ABNORMAL) POCT Glucose, blood (09/26/2024 11:46 AM EDT) Glucose POCT 126(H) 70 - 100 mg/dL 09/26/2024 11:47 AM EDT [facility] Blood Capillary blood specimen / Unknown 09/26/2024 11:46 AM EDT 09/26/2024 11:48 AM EDT Maricarmen Hatfield DO LAB POINT OF CARE T EST DOCKED DEVICE UNSOLICITED RESULTS Final Result Performing Organization Address [facility] Co de Phone Number [facility] [address] [place] [address], * CT Angio Head/Neck Stroke wo and/or w Contrast (09/26/2024 11:24 AM EDT) Anatomical Region Laterality Modality Head and Neck Computed Tomogra phy 09/26/2024 11:5 7 AM EDT Impressions 09/26/2024 12:06 PM EDT 1. No large vessel occlusion, intracranial aneurysm, dissection, or hemodynamically significant cervical carotid stenosis. 2. 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 Teleenio VIDAL ([id number]) -------- FINAL REPORT -------- Dictated By: Jhoana Chase Dictated Date: 09/26/2024 11:57 ET Assigned Physician: Jhoana Chase Reviewed and Electronically Signed By: Jhoana Chase Signed Date: 09/26/2024 12:06 ET Workstation ID: [id number] Transcribed By: Self Edit Transcribed Date: 09/26/2024 [...] brain was also performed. DLP: 2522.84 mGy/cm PrixelT Iterative reconstruction technique FINDINGS: CTA: INTRACRANIAL VASCULATURE: The bilateral A1 and M1 segments are widely patent. The more distal branches of the anterior and middle cerebral arteries also appear patent. The basilar artery is widely patent and terminates in the bilateral tower cleaner. The right LAMINATING MACHINE TENDER is partially supplied by the right internal [...] brain was also performed. DLP: 2522.84 mGy/cm NeurelispeTranslateMedia VCT Iterative reconstruction technique FINDINGS: CTA: INTRACRANIAL VASCULATURE: The bilateral A1 and M1 segments are widelypatent. The more distal branches of the anterior and middle cerebralarteries also appear patent. The basilar artery is widely patent andterminates in the bilateral tower cleaner. The right LAMINATING MACHINE TENDER is partially supplied bythe right internal carotid [...] aneurysm measuring 3.4 cm in diameter. Telerad YOUNG ([id number]) -------- FINAL REPORT -------- Dictated By: Jhoana Chase Dictated Date: 09/26/2024 11:57 ET Assigned Physician: Jhoana Chase Reviewed and Electronically Signed By: Jhoana Chase Signed Date: 09/26/2024 12:06 ET Workstation ID: [id number] Transcribed By: Self Edit Transcribed Date: 09/26/2024 [...] of interpretation on 09/26/24 by secure message (Kayentis). Teleenio VIDAL ([id number]) A Critical Document Only message has been documented for the office of MARICARMEN HATFIELD in the [employer] system on 09/26/2024 11:45 AM, Message ID [id number]. -------- FINAL REPORT -------- Dictated By: Jhoana Chase Dictated Date: 09/26/2024 11:41 ET Assigned Physician: Jhoana Chase Reviewed and Electronically Signed By: Jhoana Chase Signed Date: 09/26/2024 11:45 ET Workstation ID: [id number] Transcribed By: Self Edit Transcribed Date: 09/26/2024 11:41 ET Narrative 09/26/2024 11:45 AM EDT History: Stroke. Severe headache. Nausea. Altered mental status. Comparison: 09/16/16 Technique: Contiguous axial images were obtained at 2.5 mm intervals through the posterior fossa and at 5 mm intervals through the remainder of the brain without intravenous contrast. DLP: 808.85 mGy/cm Reading TrailspeTranslateMedia VCT Iterative reconstruction technique Findings: The ventricular [...] brain without intravenous contrast. DLP: 808.85 mGy/cm Reading TrailspeTranslateMedia VCT Iterative reconstruction technique Findings: The ventricular [...] time ofinterpretation on 09/26/24 by secure message (Kayentis). Telerad YOUNG ([id number]) A Critical Document Only message has been documented for the office ofMARICARMEN HATFIELD in the [employer] system on09/26/2024 11:45 AM, Message ID [id number]. -------- FINAL REPORT -------- Dictated By: Jhoana Chase Dictated Date: 09/26/2024 11:41 ET Assigned Physician: Jhoana Chase Reviewed and Electronically Signed By: Jhoana Chase Signed Date: 09/26/2024 11:45 ET Workstation ID: [id number] Transcribed By: Self Edit Transcribed Date: 09/26/2024 11:41 ET Maricarmen Hatfield DO IMG CT PROCEDURES Final [...] AM EDT Narrative 06/22/2017 1:56 PM EDT [facility] Diagnostic Imaging Department [address] [place], [place] [id number] Patient: EDUARDO ENGEL D.O.B./Age/Sex: 1950 - 66 - F Unit#: [id number] Location/Status: SPDIMAM/REG CLI Mnemonic/[facility] Ordering Physician: LITA TORRES MD [facility] Dexa Axial Skeleton - 06/22/17 - 729 [facility] Dexa Axial Skeleton INDICATION: POST MENOPAUSE Technique: [...] placing the patient at risk for fracture. [id number] A report detailing these results has been enclosed. Dictating Physician: BEN GASTON MD Electronically Signed by: BEN GASTON MD Dic Date/Time: 06/22/17 1354 Sign date/Time: 06/22/17 1356 Procedure Note Ben Gaston MD - 03/31/2022 [facility] Diagnostic Imaging Department [address] [place] [address] Patient: ABREU EDUARDO NAGY./Age/Sex: 1950 - 66 -F Unit#: [id number] Location/Status: SPDIMAM/REG CLI Mnemonic/Ordering Site: [facility] Ordering Physician: LITA TORRES MD [facility] Dexa Axial Skeleton - 06/22/17 - 729 [facility] Dexa Axial Skeleton INDICATION: POST MENOPAUSE Technique: Bone densitometry was performed utilizing dual energy x-ray absorptiometry (DEXA). The lumbar spine is evaluated in the AP projectionfrom L1 through L4. The proximal femora are evaluated in the AP projection bilaterally. There are [facility] Findings: AP spine: Bone mineral density: 0.983 gm/cm2 T-score: -1.5 Femoral total (mean, bilateral): Bone mineral density: 0.704 gm/cm2 T-score: -2.4 Left femoral neck: Bone mineral density: 0.618 gm/cm2 T-score: -3.0 IMPRESSION: Findings suggesting osteoporosis, placing the patient at risk forfracture. [id number] A report detailing these results has been enclosed. Dictating Physician: BEN GASTON MD Electronically Signed by: BEN GASTON MD Dic Date/Time: 06/22/17 1354 Sign date/Time: 06/22/17 1356 Lita Torres MD IMG BI PROCEDURES Final Resu lt from Last 3 Months or Most Recently Relevant to Health Maintenance Insurance [employer] Member Subscriber Plan / Payer (Ef fective 2024-Present) Name:ABREUEDUARDO Donnelly Relation to Subscriber:Self Name:Jonah NagyEduardo Payer ID:[id number] Group ID:[id number] Type:Not on file Address: [place] [address] [address] [address] [id number] Advance Directives * Full Code - Default [...] currently active code status orders. Care Teams Legal Practice Manager Relationship Specialty Start Date End Date Addi oHlland [facility] [place] PCP - General Family Medicine 03/04/21
[2024-10-19 08:09] VITALS: BP 128/76; PULSE 70; TEMP 37.6; O2SAT 97; BMI 25.3
--- NOTE | 2024-10-19 08:09 | MHC.PC.OV ---
Vital Signs 10/19/24 08:09 Height 5 ft 2 in Weight 138 lb 8 oz BMI 25.3 BP 128/76 Blood Pressure Location Rt brachial Position Sitting Pulse 70 Pulse Source Pulse Oximeter Temp 99.7 F Temp Source Oral Pulse Oximetry (%) 97 Oxygen Delivery Method Room Air Intake Visit Reasons: HDF - stroke Hospice Team Lead Required: No Is last menstrual period known: No Post menopausal: Yes Patient : No Allergies tramadol Allergy (Severe, Verified 10/19/24 08:14) Itching Tobacco use date assessed: 10/19/24 Fall risk assessment: 2 + Falls in past year Last assessed Fall Risk: 10/19/24 Dental Screening Dental Screen Date: 09/12/24 Did you have a dental visit in the last 12 months?: Yes Did you have a dental problem in the last 6 months where you did not have access to dental care?: No Was dental information given to patient?: Patient has dentist HPI HPI Comments History of Present Illness Details Patient is a 74-year-old female with a past medical history of GERD, liver fibrosis, insomnia, hiatal hernia, dysphagia, PTSD, depression, MANDEEP, hypothyroid, memory loss, HTN, HLD, osteoporosis and migraines who is here for a hospital discharge follow-up for a hospitalization at [facility] from October 03-. She is unsure what her diagnosis was but she tells me on the morning of October 03 her CERTIFIED PHARMACIST ASSISTANT came over at 09:00 and she was not out of bed yet because she was feeling very weak so her CERTIFIED PHARMACIST ASSISTANT called an ambulance and she was transported to [facility]. She knows that when she was discharged they gave her Fioricet and Zofran because she has the prescriptions with her today and she is asking for a refill on the Zofran. She tells me when she gets migraine she also has nausea and these of the medication she was told to take. She also had some other medication changes but she is unsure what they were. She denies any migraines or nausea today. Our medical records specialist sent for requests for her records for this hospitalization to [facility]. We did not receive any records in return. We also called this morning 3 times and spoke to Edu strickland, a supervisor plasma and medical records and were shared the records that were being sent over but we did not receive them. The patient waited for over an hour in the exam room and had to leave because her had another appointment they had to get to. She will come back in 1 week for this appointment. [facility] Medical History Insomnia PONV (postoperative nausea and vomiting) GERD (gastroesophageal reflux disease) Oropharyngeal dysphagia Gastritis Migraines Dyslipidemia Hypothyroidism Osteoporosis Anxiety Essential hypertension Surgical History History of shoulder surgery History of section History of nasal surgery History of surgery History of carpal tunnel surgery History of neck surgery Family History Father Cancer of prostate Mother HTN (hypertension) Maternal Grandmother Stroke Asthma Brother Substance use disorder Social History Household Members: Spouse Caregiver staying overnight: No Housing: Apartment Are you a primary health care law specialist to a significant other at home: Yes (, he also has a CERTIFIED PHARMACIST ASSISTANT) Do you presently have 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 or other home services: No 75 years or older and lives alone: No Alcohol intake: never Patient Tobacco Use Status: Former Tobacco user Tobacco use type: Cigarette e-Cigarette/Vaping Use: Never Used Second Hand Smoke Exposure: No service: No Current occupational status: retired Cognitive needs: No Hearing needs: No Vision needs: No Questionnaire PHQ-9 Over the last 2 weeks, how often have you been bothered by any of the following problems? 1. Little interest or pleasure in doing things: nearly every day 2. Feeling down, depressed, or hopeless: nearly every day 3. Trouble falling or staying asleep, or sleeping too much: nearly every day 4. Feeling tired or having little energy: nearly every day 5. Poor appetite or overeating: several days 6. Feeling bad about yourself - or that you are a failure or have let yourself or your family down: more than half the days 7. Trouble concentrating on things, such as reading the newspaper or watching television: several days 8. Moving or speaking so slowly that other people could have noticed. Or the opposite - being so fidgety or restless that you have been moving around a lot more than usual: nearly every day 9. Thoughts that you would be better off or of hurting yourself in some way: several days Total score: 20 Source: Developed by Drs. Jerrod Jain, Sally Davis, Sixto Noel and colleagues, with an educational rosalee from [employer]. Thrive Questionnaire Date Thrive assessed: 10/19/24 I am a: Patient What is your living situation today?: I do not have a steady places to live I am temporarily staying with others Within the past 12 months, did the food you bought not last and you didn't have the money to get more?: Never true Within the past 12 months, did you worry whether your food would run out before you got money to buy more?: Never true Do you have trouble paying for medicines?: No Do you have trouble getting transportation to medical appointments?: No Do you have trouble paying your heating and electricity bill?: No Do you have trouble taking care of your child, family member or friend?: Yes Do you have trouble with day-to-day activities such as bathing, preparing meals, shopping, managing finances, etc.?: Yes Are you currently unemployed and looking for a job?: No Are you interested in more education?: No Please select the resources that you would like help with: Housing/Assisted Currently or been in a relationship where the following occur: I choose not to answer THRIVE Score: 1 AUDIT C Alcohol Use Questionnaire (AUDIT-C) 1. How often do you have a drink containing alcohol?: Never Total Score: 0 JUANA-7 AMB Questionnaire JUANA-7 Date JUANA - 7 assessed: 09/07/23 Source: Developed by Drs. Jerrod Jain, Sally Davis, Sixto Noel and colleagues, with an educational rosalee from [employer]. Review of Systems Const All systems reviewed & are unremarkable except as noted in HPI and below Physical exam (Primary Care) Vital Signs: Last Vital Signs Temp 99.7 F 10/19/24 08:09 Pulse 70 10/19/24 08:09 BP 128/76 10/19/24 08:09 Pulse Ox 97 10/19/24 08:09 Oxygen Delivery Method Room Air 10/19/24 08:09 BMI result Body Mass Index 25.3 Tobacco/Smoking Status: Tobacco use Status Tobacco use date assessed 10/19/24 10/19/24 08:15 Patient Tobacco Use Status Former Tobacco user 10/19/24 08:15 Tobacco use type Cigarette 10/19/24 08:15 e-Cigarette/Vaping Use Never Used 10/19/24 08:15 PHQ-9: PHQ-9 Score PHQ-9: Total score 20 10/19/24 08:15 Thrive Assessment: Date of Thrive Assessment Date Thrive assessed 10/19/24 10/19/24 08:15 Currently or been in a relationship where the following occur: I choose not to answer Const General: cooperative, healthy appearing, comfortable, no acute distress and well developed Orientation/consciousness: patient oriented x3 and Other orientation findings (memory issues) Limitations: ambulation with cane HENMT Head: Yes normal to inspection Ears: hearing grossly normal bilaterally General nose exam: Normal external nose present Face and sinus: Yes normal facial exam Eyes General: appearance normal, both eyes and all related structures Neck Neck: Yes normal visual inspection and Yes full ROM Resp Effort & Inspection: normal respiratory effort and able to speak in complete sentences Skin General skin exam: no rashes or lesions noted Neuro General: patient oriented x3 Extrem General: Yes normal to inspection Coding Level of Care Code Est Pt Level 3 (18297) Diagnoses Migraines G43.909 Migraine type: unspecified Nausea R11.0 Assessment & Plan Assessment & Plan (1) Migraines: Code(s): G43.909 - Migraine, unspecified, not intractable, without status migrainosus Category: Medical Qualifiers: Migraine type: unspecified Plan: Patient has rescheduled this appointment to October 26 at 08:00. I will send a refill on her Zofran to address her nausea. She also gave me a handicap placard request from the [employer] which I gave to her PCP, Addi. (2) Nausea: Code(s): R11.0 - Nausea Category: Medical Plan: as above
== END 2024-10-19 09:28 | disposition home or self-care (01) ==
LOC: HO.HMCC 07:46
PROVIDERS: Visit Provider Physician Assistant
DX: G43.909 Migraine, unspecified, not intractable, without status migrainosus (principal); R11.0 Nausea

== ENCOUNTER → 2024-10-19 07:45 | Outpatient (BNVA) | payer OTHER, SELFPAY | PROVIDERS: Visit Provider Physician Assistant | DX: K21.9 Gastro-esophageal reflux disease without esophagitis (principal); F43.10 Post-traumatic stress disorder, unspecified; F32.A Depression, unspecified; G47.33 Obstructive sleep apnea (adult) (pediatric); E03.9 Hypothyroidism, unspecified; E78.5 Hyperlipidemia, unspecified; I10 Essential (primary) hypertension; M81.0 Age-related osteoporosis without current pathological fracture; G43.909 Migraine, unspecified, not intractable, without status migrainosus; R11.0 Nausea; Z86.73 Personal history of transient ischemic attack (TIA), and cerebral infarction without residual deficits; Z79.899 Other long term (current) drug therapy | CPT/HCPCS: 96127; 99212 ==

== ENCOUNTER 2024-10-26 07:36 | Outpatient (AMB) | payer OTHER, SELFPAY ==
--- OUTSIDE RECORDS SUMMARY | 2024-04-04 05:00 | XMS_ITS ---
Author Organization [facility] Address [address] [place] [address] Care Team Providers Care Electromechanical Inspector Name Role Phone AUTUMN PADILLA Primary Care Provider REASON FOR VISIT follow up labs Encounters Encounter Location Date Provider Diagnosis [facility] [address] [place] [address] 04/04/2024 AUTUMN BEASLEY Plan Of Treatment No Information Progress Notes * Marie ENGELDO B:1950 (74 yo F)Acc No.[id number]:04/04/2024 Patient: Lawson RUIZ LUISITOMarie Provider: Lawson BEASLEY MD :1950 A ge:73 Y S ex:Female Date:04/04/2024 Phone: Address:[address] [place], [place] [phone] Structured Data:Consent to r eceive voicemail/text messages? : YES Subjective: * Chief Complaints: * 1 . Follow up labs. * Medical History: Objective: * Vitals: Assessment: Plan: * Treatment: * Billing Information: * Visit Code: * Procedure Codes: * Electronic signature of AUTUMN BEASLEY MD on 10/26/2024 at 07:39 AM EDT Sign off status: Pending * Provider: Lawson BEASLEY MD Date: 06/05/2023 Generated for Printi ng/Faxing/eTransmitting on: 0 10/26/2024 07:39 AM EDT
--- OUTSIDE RECORDS SUMMARY | 2024-10-26 07:39 | XMS_ITS | Encounter Summary ---
Author Organization [facility] Address [address] [place] [address] Care Team Providers Care Hearing Care Practitioner Name Role Phone Delmis Torres MD Unavailable Unavailable Yue Moreira MD Unavailable Unavaila Emily Foy MD Primary Care Provider Unavail able [facility], Pcp Primary Care Provider UnavailAddi Ball NP Primary Care Provider Unavail able Liza Hernandez MD Unavailable [phone] Benita Quinn PA-C Unavailable [phone] Reason for Visit * Reason Onset Date Comments Faxed Order 02/13/2019 Encounter Details Date Type Department Care Team Description 02/13/2019 Telephone Adult Medicine [address] [address] Emily Burrell MD Faxed Order Social History Tobacco Use Types Packs/Day Years Used Date Smoking Tobacco: Former Smokeless Tobacco: Never Alcohol Use Standard Drinks/Week Comments No 0 (1 standard drink = 0.6 oz pur e alcohol) Sex Assigned at Date Recorded Not on file documented as of this encounter Miscellaneous Notes * Telephone Encounter - Amee Beal - 02/13/2019 7:06 PM EST Faxed orders received from [facility]. Please review, sign, date, and fax back to [phone]. documented in this encounter Plan of Treatment Not on file documented as of this encounter Visit Diagnoses Not on filedocumented in this encounter Care Teams Hearing Care Practitioner Relationship Specialty Start Date End Date Emily Burrell MD PCP - General Internal Medicine 02/08/19 04/24/21 [facility], Pcp PCP - General Internal Medicine 04/25/21 09/02/21 Addi Holland NP PCP - General Family Practice 09/03/21 Delmis Torres MD Internal Medicine 06/06/18 Yue Moreira MD Internal Medicine 06/06/18 Liza Hernandez MD [address] [address] Surgeon Neurosurgery 09/09/21 Benita Quinn PA-C [address] [address] Specialist Neurosurgery 09/09/21 documented as of this encounter
--- OUTSIDE RECORDS SUMMARY | 2024-10-26 07:39 | XMS_ITS | Clinical Summary ---
Author Organization [facility] Address [address] [place] [address] Phone Care Team Providers Care Mine Shifter Name Role Phone Addi Holland NP Primary [...] - 10/02/2024 11:59 PM EDT Hospital Encounter [facility] Neurodiagnostic [address] [place] [address] Myopathy Discharge Disposition: Home or Self Care 09/26/2024 11:04 AM EDT - 09/29/2024 4:43 PM EDT Hospital Encounter [facility] Urology Unit [address] [place] [address] Maricarmen Hatfield DO Montano, Gary L, MD [...] TUNNEL REL UPPER GASTROINTESTINAL ENDOSCOPY 08/18/2016 PROCEDURE: MO UPPER GI ENDOSCOPY PERFORMED; COMMENT: Erosive gastritis, [...] care for your loved ones. For example, early childhood specialist or elderly care for an older adult? [...] result were not included. [facility] [address] [place] [address] Electromyograph Report Date of service: 10/02/24 Patient [...] original note were not included. [facility] [address] [place] [id number] Electromyograph Report Date of service: 10/02/24 Patient [...] 2. No active pulmonary process. Telerad YOUNG ([id number]) -------- FINAL REPORT -------- Dictated By: Jhoana Chase Dictated Date: 10/01/2024 10:10 ET Assigned Physician: Jhoana Chase Reviewed and Electronically Signed By: Jhoana Chase Signed Date: 10/01/2024 10:12 ET Workstation ID: [id number] Transcribed By: Self Edit Transcribed Date: 10/01/2024 [...] 2. No active pulmonary process. Teleenio VIDAL ([id number]) -------- FINAL REPORT -------- Dictated By: Jhoana Chase Dictated Date: 10/01/2024 10:10 ET Assigned Physician: Jhoana Chase Reviewed and Electronically Signed By: Jhoana Chase Signed Date: 10/01/2024 10:12 ET Workstation ID: [id number] Transcribed By: Self Edit Transcribed Date: 10/01/2024 10:10 ET Katelyn VIDAL IMG XR PROCEDURES Final R esult * Lavender tube (09/29/2024 5:58 AM EDT) Only the most recent of2 resultswithin the time period is included. Extra Tube Hold for add-ons. 10/02/2024 9:[address] [facility] Comment:Auto resulted. Blood Venous blood specimen / Unknown Venipuncture / Unknown 09/29/2024 5:58 AM EDT 09/29/2024 6:17 AM EDT Yuval Lake MD LAB BLOOD ORDERABLES F inal Result [facility] [address] [place] [address], [place] [phone] * Magnesium (09/29/2024 5:58 AM EDT) Only the most recent of2 resultswithin the time period is included. [facility] Magnesium 2.1 1.9 - 2.6 mg/dL LAB CHEMISTRY METHOD 09/29/2024 7:[address] [facility] Blood Venous blood specimen / Unknown Venipuncture / Unknown 09/29/2024 5:58 AM EDT 09/29/2024 6:12 AM EDT [facility] LAB BLOOD ORDERABLES Hoa l Result Performing Organization Address City/[facility]/ZIP Co de Phone Number [facility] [address] [place] [address], [place] [phone] * (ABNORMAL) Creatine kinase (09/29/2024 5:58 AM EDT) Only the most recent of3 resultswithin the time period is included. [facility] Total CK 1,852(H) 22 - 269 unit/L LAB CHEMISTRY METHOD 09/29/2024 7:[address] [facility] Blood Venous blood specimen / Unknown Venipuncture / Unknown 09/29/2024 5:58 AM EDT 09/29/2024 6:12 AM EDT [facility] LAB BLOOD ORDERABLES Hoa l Result Performing Organization Address City/[facility]/ZIP Co de Phone Number [facility] [address] [place] [address], [place] [phone] * (ABNORMAL) Basic metabolic panel (09/29/2024 5:58 AM EDT) Only the most recent of3 resultswithin the time period is included. [facility] Sodium 137 133 - 145 mmol/L LAB CHEMISTRY METHOD 09/29/2024 7:[address] [facility] Potassium 4.3 3.5 - 5.5 mmol/L LAB CHEMISTRY METHOD 09/29/2024 7:05 AM [facility] Chloride 100 96 - 110 mmol/L LAB CHEMISTRY METHOD 09/29/2024 7:05 AM [facility] CO2 33(H) 21 - 32 mmol/L LAB CHEMISTRY METHOD 09/29/2024 7:05 AM [facility] Anion Gap 4 3 - 11 LAB CHEMISTRY METHOD 09/29/2024 7:05 AM [facility] Glucose 101(H) 70 - 100 mg/dL LAB CHEMISTRY METHOD 09/29/2024 7:05 AM [facility] BUN 17 5 - 25 mg/dL LAB CHEMISTRY METHOD 09/29/2024 7:05 AM [facility] Creatinine 0.76 0.50 - 1.10 mg/dL LAB CHEMISTRY METHOD 09/29/2024 7:05 AM [facility] eGFR 83 >=60 mL/min/1. 73m2 LAB CHEMISTRY METHOD 09/29/2024 7:05 AM [facility] Comment:Calculation based on the Chronic Kidney Disease Epidemiology Collaboration (CKD-EPI) equation refit without adjustment for race. BUN/Creatinine Ratio 22.4 LAB CHEMISTRY METHOD 09/29/2024 7:05 AM [facility] Calcium 9.2 8.5 - 10.5 mg/dL LAB CHEMISTRY METHOD 09/29/2024 7:05 AM [facility] Blood Venous blood specimen / Unknown Venipuncture / Unknown 09/29/2024 5:58 AM EDT 09/29/2024 6:12 AM EDT us Katelyn VIDAL LAB BLOOD ORDERABLES Hoa chavez Result [facility] [address] [place] [address], * XR Hip 1 View Left (09/28/2024 [...] Signed Date: 09/28/2024 12:51 ET Workstation ID: [id number] Transcribed By: Self Edit Transcribed Date: 09/28/2024 [...] Signed Date: 09/28/2024 12:51 ET Workstation ID: [id number] Transcribed By: Self Edit Transcribed Date: 09/28/2024 12:48 ET Katelyn VIDAL IMG XR PROCEDURES Final R esult * Phosphorus (09/28/2024 6:01 AM EDT) Phosphorus 3.1 2.5 - 4.5 mg/dL LAB CHEMISTRY METHOD 09/28/2024 7:[address] [facility] Blood Venous blood specimen / Unknown Venipuncture / Unknown 09/28/2024 6:01 AM EDT 09/28/2024 6:24 AM EDT Katelyn VIDAL LAB BLOOD ORDERABLES Hoa chavez Result [facility] [address] [place] [address], [place] [phone] * (ABNORMAL) Comprehensive metabolic panel (09/28/2024 6:01 AM EDT) Sodium 135 133 - 145 mmol/L LAB CHEMISTRY METHOD 09/28/2024 7:56 AM [facility] Potassium 3.6 3.5 - 5.5 mmol/L LAB CHEMISTRY METHOD 09/28/2024 7:56 AM [facility] Chloride 97 96 - 110 mmol/L LAB CHEMISTRY METHOD 09/28/2024 7:56 AM [facility] CO2 32 21 - 32 mmol/L LAB CHEMISTRY METHOD 09/28/2024 7:56 AM [facility] Anion Gap 6 3 - 11 LAB CHEMISTRY METHOD 09/28/2024 7:56 AM [facility] Glucose 98 70 - 100 mg/dL LAB CHEMISTRY METHOD 09/28/2024 7:56 AM [facility] BUN 17 5 - 25 mg/dL LAB CHEMISTRY METHOD 09/28/2024 7:56 AM [facility] Creatinine 0.69 0.50 - 1.10 mg/dL LAB CHEMISTRY METHOD 09/28/2024 7:56 AM [facility] eGFR 92 >=60 mL/min/1. 73m2 LAB CHEMISTRY METHOD 09/28/2024 7:56 AM [facility] Comment:Calculation based on the Chronic Kidney Disease Epidemiology Collaboration (CKD-EPI) equation refit without adjustment for race. BUN/Creatinine Ratio 24.6 LAB CHEMISTRY METHOD 09/28/2024 7:56 AM [facility] Calcium 9.4 8.5 - 10.5 mg/dL LAB CHEMISTRY METHOD 09/28/2024 7:56 AM [facility] AST (SGOT) 77(H) 10 - 42 unit/L LAB CHEMISTRY METHOD 09/28/2024 7:56 AM [facility] ALT (SGPT) 30 10 - 60 unit/L LAB CHEMISTRY METHOD 09/28/2024 7:56 AM [facility] Alkaline Phosphatase 69 42 - 121 unit/L LAB CHEMISTRY METHOD 09/28/2024 7:56 AM [facility] Total Protein 6.0 6.0 - 8.0 g/dL LAB CHEMISTRY METHOD 09/28/2024 7:56 AM [facility] Albumin 3.4 3.2 - 5.0 g/dL LAB CHEMISTRY METHOD 09/28/2024 7:56 AM [facility] Total Bilirubin 0.5 0.0 - 1.4 mg/dL LAB CHEMISTRY METHOD 09/28/2024 7:56 AM [facility] Blood Venous blood specimen / Unknown Venipuncture / Unknown 09/28/2024 6:01 AM EDT 09/28/2024 6:24 AM EDT Katelyn VIDAL LAB BLOOD ORDERABLES Hoa chavez Result [facility] [address] [place] [address], * (ABNORMAL) Drug abuse screen 8a panel, urine (09/27/2024 4:23 PM EDT) Amphetamine Screen, Ur Negative Negative LAB CHEMISTRY METHOD 7:[address] [facility] Comment:Certain OTC medicati ons containing ephedrine, phenylephrine, pseudoephedrine and phenylpropanolamine can cause false positive results. Barbiturate Screen, Ur Negative Negative LAB CHEMISTRY METHOD 5 7:[address] [facility] Benzodiazepine Screen, Ur Negative Negative LAB CHEMISTRY METHOD 5 7:[address] [facility] Cocaine Screen, Ur Negative Negative LAB CHEMISTRY METHOD 5 7:[address] [facility] Opiate Screen, Ur Positive(A ) Negative LAB CHEMISTRY METHOD 5 7:[address] [facility] Cannabinoid (THC) Screen, Ur Negative Negative LAB CHEMISTRY METHOD 5 7:[address] [facility] Comment:Specimens from patie nts taking pantoprazole sodium (Protonix) have been shown to produce false positive results. Oxycodone Screen, Ur Negative Negative LAB CHEMISTRY METHOD 5 7:[address] [facility] Fentanyl, Ur Negative Negative LAB CHEMISTRY METHOD 5 7:[address] [facility] Urine Urine specimen obtained by clean catch procedure / Unknown Non-blood Collection / Unknown 09/27/2024 4:23 PM EDT 09/27/2024 6:[address] [facility] - 09/27/2024 7:18 PM EDT [...] VIDAL LAB URINE ORDERABLES Hoa chavez Result [facility] [address] [place] [address], [place] [phone] * (ABNORMAL) Aldolase (09/27/2024 1:41 PM EDT) Aldolase 20.6(H) 1.2 - 7.6 U/L 10/03/2024 9:54 AM EDT [facility] Comment: Test performed at [facility], [address] , [place] [address] Alisha Jesus MD, PhD - Electronic Page Makeup System Operator Blood Venous blood specimen / Unknown Venipuncture / Unknown 09/27/2024 1:41 PM EDT 09/27/2024 2:09 PM EDT Katelyn Potts [place] LAB BLOOD ORDERABLES Hoa l Result [facility] [address] [place] [address] * (ABNORMAL) TRANSTHORACIC ECHOCARDIOGRAM (TTE) COMPLETE (09/27/2024 1:21 PM EDT) Left Atrium Minor Nineveh 5.3 cm CV PACS Left Atrium Major Nineveh 5.3 cm CV PACS LA Area Sys [...] Volume 64 mL CV PACS MV Deceleration [place] 4.0 m/s2 CV PACS E Wave Deceleration [...] of2 resultswithin the time period is included. [facility] High Sensitivity Troponin I 152(HH) <=54 ng/L LAB CHEMISTRY METHOD 09/27/2024 11:[address] [facility] Blood Venous blood specimen / Unknown Venipuncture / Unknown 09/27/2024 10:20 AM EDT 09/27/2024 10:[address] [facility] - 09/27/2024 11:02 AM EDT High levels of biotin in samples may falsely decrease hsTroponin values. Use caution when interpreting hsTroponin results in patients taking biotin who exhibit renal impairment (eGFR <60) or in patients taking more than 20 mg/day of biotin. us Katelyn VIDAL LAB BLOOD ORDERABLES Hoa chavez Result [facility] [address] [place] [address], [place] [phone] * (ABNORMAL) Lipid panel with reflex to direct LDL (09/27/2024 10:20 AM EDT) Only the most recent of2 resultswithin the time period is included. Cholesterol 234(H) 0 - 200 mg/dL LAB CHEMISTRY METHOD 09/27/2024 12:[address] [facility] Triglycerides 71 0 - 150 mg/dL LAB CHEMISTRY METHOD 09/27/2024 12:[address] [facility] HDL 79 >=40 mg/dL LAB CHEMISTRY METHOD 09/27/2024 12:[address] [facility] LDL Calculated 141(H) 0 - 100 mg/dL LAB CHEMISTRY METHOD 09/27/2024 12:[address] [facility] VLDL Cholesterol Koby 14.2 mg/dL LAB CHEMISTRY METHOD 09/27/2024 12:[address] [facility] Non HDL Chol. (LDL+VLDL) 155(H) <145 mg/dL LAB CHEMISTRY METHOD 09/27/2024 12:[address] [facility] Chol/HDL Ratio 3.0 0.0 - 4.4 LAB CHEMISTRY METHOD 09/27/2024 12:[address] [facility] Blood Venous blood specimen / Unknown Venipuncture / Unknown 09/27/2024 10:20 AM EDT 09/27/2024 10:25 AM EDT [facility] LAB BLOOD ORDERABLES Hoa l Result Performing Organization Address City/[facility]/ZIP Co de Phone Number [facility] [address] [place] [address], [place] [phone] * Sedimentation rate (09/27/2024 10:20 AM EDT) Sed Rate 23 0 - 30 mm/hr LAB HEMETOLOGY METHOD 09/27/2024 10:[address] [facility] Blood Venous blood specimen / Unknown Venipuncture / Unknown 09/27/2024 10:20 AM EDT 09/27/2024 10:25 AM EDT [facility] LAB BLOOD ORDERABLES Hoa l Result Performing Organization Address [facility] de Phone Number [facility] [address] [place] [address], [place] [phone] * C reactive protein, high sensitivity (09/27/2024 10:20 AM EDT) CRP, High Sensitivity 21.90 mg/L LAB CHEMISTRY METHOD 09/27/2024 11:[address] [facility] Comment: Cardio CRP Relative Risk [...] ORDERABLES Final Resul t Performing Organization Address [facility]/ZIP Co de Phone Number [facility] [address] [place] [address], [place] [phone] * (ABNORMAL) Lipase (09/27/2024 10:20 AM EDT) [facility] Lipase 12(L) 13 - 75 unit/L LAB CHEMISTRY METHOD 09/27/2024 10:[address] [facility] Blood Venous blood specimen / Unknown Venipuncture / Unknown 09/27/2024 10:20 AM EDT 09/27/2024 10:25 AM EDT Katelyn VIDAL LAB BLOOD ORDERABLES Hoa l Result Performing Organization Address City/[facility]/ZIP Co de Phone Number [facility] [address] [place] [address], [place] [phone] * (ABNORMAL) Hepatic function panel (09/27/2024 10:20 AM EDT) [facility] Total Protein 6.8 6.0 - 8.0 g/dL LAB CHEMISTRY METHOD 09/27/2024 10:[address] [facility] Albumin 3.8 3.2 - 5.0 g/dL LAB CHEMISTRY METHOD 09/27/2024 10:[address] [facility] Total Bilirubin 0.5 0.0 - 1.4 mg/dL LAB CHEMISTRY METHOD 09/27/2024 10:[address] [facility] Bilirubin, Direct 0.1 0.0 - 0.3 mg/dL LAB CHEMISTRY METHOD 09/27/2024 10:[address] [facility] Bilirubin, Indirect 0.4 0.0 - 1.1 mg/dL LAB CHEMISTRY METHOD 09/27/2024 10:[address] [facility] ALT (SGPT) 32 10 - 60 unit/L LAB CHEMISTRY METHOD 09/27/2024 10:[address] [facility] AST (SGOT) 86(H) 10 - 42 unit/L LAB CHEMISTRY METHOD 09/27/2024 10:[address] [facility] Alkaline Phosphatase 78 42 - 121 unit/L LAB CHEMISTRY METHOD 09/27/2024 10:[address] [facility] Blood Venous blood specimen / Unknown Venipuncture / Unknown 09/27/2024 10:20 AM EDT 09/27/2024 10:25 AM EDT Katelyn VIDAL LAB BLOOD ORDERABLES Hoa l Result Performing Organization Address [facility] de Phone Number [facility] [address] [place] [address], [place] [phone] * ECG 12 lead (09/27/2024 10:00 AM EDT) Only the most recent of2 resultswithin the time period is included. Ventricular Rate ECG 66 BPM GEMUSE Atrial Rate 66 BPM GEMUSE P-R Interval 146 ms GEMUSE QRS Duration 86 ms GEMUSE Q-T Interval 392 ms GEMUSE QTc 410 ms GEMUSE P Wave Nineveh 47 degrees GEMUSE R Nineveh -6 degrees GEMUSE T Nineveh 19 degrees GEMUSE ECG Interpretation Normal sinus rhythm Normal ECG When compared with ECG of 26-SEP-2024 11:50, No significant change was found Confirmed by SARITA DIAL ([id number]) on 09/28/2024 2:47:33 PM GEMUSE 09/27/2024 10:0 0 AM EDT 09/28/2024 2:47 PM EDT Katelyn VIDAL ECG ORDERABLES Final Res ult GEMUSE * SST tube (09/27/2024 8:11 AM EDT) Pathologist [facility] Extra Tube Hold for add-ons. 09/27/2024 10:[address] [facility] Comment:Auto resulted. Blood Venous blood specimen / Unknown 09/27/2024 8:11 AM EDT 09/27/2024 8:17 AM EDT Yuval Lake MD LAB BLOOD ORDERABLES F inal Result Performing Organization Address [facility]/ZIP Co de Phone Number [facility] [address] [place] [address], [place] [phone] * JAIME IFA with titer and pattern (09/27/2024 8:11 AM EDT) Pathologist [facility] JAIME Negative Negative 09/27/2024 2:[address] [facility] Blood Venous blood specimen / Unknown 09/27/2024 8:11 AM EDT 09/27/2024 8:17 AM EDT us Katelyn VIDAL LAB BLOOD ORDERABLES Hoa l Result Performing Organization Address [facility] Co de Phone Number [facility] [address] [place] [address], [place] [phone] * (ABNORMAL) B-type natriuretic peptide (09/27/2024 8:11 AM EDT) BNP 120(H) <=100 pcg/mL LAB CHEMISTRY METHOD 09/27/2024 8:[address] [facility] Blood Venous blood specimen / Unknown Venipuncture / Unknown 09/27/2024 8:11 AM EDT 09/27/2024 8:16 AM EDT [facility] BLOOD ORDERABLES Hoa l Result [facility] [address] [place] [address], [place] [phone] * (ABNORMAL) Creatine kinase and CKMB (09/27/2024 8:11 AM EDT) Pathologist [facility] Total CK 3,151(H) 22 - 269 unit/L LAB CHEMISTRY METHOD 09/27/2024 9:[address] [facility] Comment:Results verified by repeat testing CK-MB 6.1(H) 1.0 - 3.6 ng/mL LAB CHEMISTRY METHOD 09/27/2024 9:[address] [facility] CK-MB Index 0.0 0.0 - 5.0 LAB CHEMISTRY METHOD 09/27/2024 9:[address] [facility] Blood Venous blood specimen / Unknown 09/27/2024 8:11 AM EDT 09/27/2024 8:17 AM EDT [facility] LAB BLOOD ORDERABLES Hoa l Result Performing Organization Address City/[facility]/ZIP Co de Phone Number [facility] [address] [place] [address], [place] [phone] * (ABNORMAL) Complete blood count (09/27/2024 6:19 AM EDT) [facility] WBC 7.8 4.8 - 10.8 K/mcL LAB HEMETOLOGY METHOD 09/27/2024 6:[address] [facility] RBC 3.80 3.80 - 4.80 M/mcL LAB HEMETOLOGY METHOD 09/27/2024 6:[address] [facility] Hemoglobin 10.4(L) 11.5 - 16.0 g/dL LAB HEMETOLOGY METHOD 09/27/2024 6:[address] [facility] Hematocrit 33.4(L) 35.0 - 47.0 % LAB HEMETOLOGY METHOD 09/27/2024 6:[address] [facility] MCV 87.4 79.0 - 98.0 FL LAB HEMETOLOGY METHOD 09/27/2024 6:[address] [facility] MCH 27.2 27.0 - 32.0 pcg LAB HEMETOLOGY METHOD 09/27/2024 6:[address] [facility] MCHC 31.1(L) 32.0 - 37.0 g/dL LAB HEMETOLOGY METHOD 09/27/2024 6:[address] [facility] RDW 13.9 11.0 - 15.0 % LAB HEMETOLOGY METHOD 09/27/2024 6:[address] [facility] Platelets 208 130 - 400 K/mcL LAB HEMETOLOGY METHOD 09/27/2024 6:[address] [facility] MPV 9.9 7.0 - 11.0 FL LAB HEMETOLOGY METHOD 09/27/2024 6:[address] [facility] NRBC 0.0 <1.0 % LAB HEMETOLOGY METHOD 09/27/2024 6:[address] [facility] NRBC Absolute 0.00 <0.10 K/mcL LAB HEMETOLOGY METHOD 09/27/2024 6:[address] [facility] Blood Venous blood specimen / Unknown Venipuncture / Unknown 09/27/2024 6:19 AM EDT 09/27/2024 6:29 AM EDT us Idris Chawla MD LAB BLOOD ORDERABLES Final Res ult [facility] [address] [place] [address], * (ABNORMAL) Urinalysis with reflex microscopic and culture (09/26/2024 9:44 PM EDT) Specific Deposit Urine 1.019 1.003 - 1.030 LAB URINALYSIS - AUTOMATED METHOD 09/26/2024 9:57 PM [facility] pH, Urine 5.5 5.0 - 8.0 pH LAB URINALYSIS - AUTOMATED METHOD 09/26/2024 9:57 PM [facility] Leukocytes, Urine Small(A) Negative LAB URINALYSIS - AUTOMATED METHOD 09/26/2024 9:57 PM [facility] Nitrite, Urine Negative Negative LAB URINALYSIS - AUTOMATED METHOD 09/26/2024 9:57 PM [facility] Protein, Urine Negative <=Trace mg/dL LAB URINALYSIS - AUTOMATED METHOD 09/26/2024 9:57 PM [facility] Glucose, Urine Negative Negative mg/dL LAB URINALYSIS - AUTOMATED METHOD 09/26/2024 9:57 PM [facility] Ketones, Urine Trace(A) Negative mg/dL LAB URINALYSIS - AUTOMATED METHOD 09/26/2024 9:57 PM [facility] Urobilinogen, Urine 0.2 0.2 - 1.0 mg/dL LAB URINALYSIS - AUTOMATED METHOD 09/26/2024 9:57 PM [facility] Bilirubin, Urine Negative Negative LAB URINALYSIS - AUTOMATED METHOD 09/26/2024 9:57 PM [facility] Blood, Urine Negative Negative LAB URINALYSIS - AUTOMATED METHOD 09/26/2024 9:57 PM [facility] RBC, Urine 2.4 0 - 4 /HPF LAB URINALYSIS - AUTOMATED METHOD 09/26/2024 9:57 PM [facility] WBC, Urine 3.0 0 - 4 /HPF LAB URINALYSIS - AUTOMATED METHOD 09/26/2024 9:[address] [facility] Squamous Epithelial, Urine 11 0 - 60 /LPF LAB URINALYSIS - AUTOMATED METHOD 09/26/2024 9:[address] [facility] Bacteria, Urine Negative Negative /HPF LAB URINALYSIS - AUTOMATED METHOD 09/26/2024 9:[address] [facility] Hyaline Casts, Urine 1.2 0 - 3 /LPF LAB URINALYSIS - AUTOMATED METHOD 09/26/2024 9:[address] [facility] Urine Urine specimen obtained by clean catch procedure / Unknown Non-blood Collection / Unknown 09/26/2024 9:44 PM EDT 09/26/2024 9:49 PM EDT Melissa VIDAL LAB URINE ORDERABLES Final Resul t Performing Organization Address [facility]/ZIP Co de Phone Number [facility] [address] [place] [address], [place] [phone] * Arcos urine culture tube (09/26/2024 9:44 PM EDT) Extra Tube Hold for add-ons. 09/26/2024 11:[address] [facility] Comment:Auto resulted. Urine Urine specimen obtained by clean catch procedure / Unknown Non-blood Collection / Unknown 09/26/2024 9:44 PM EDT 09/26/2024 9:49 PM EDT Melissa VIDAL LAB URINE ORDERABLES Final Resul t Performing Organization Address City/[facility]/ZIP Co de Phone Number [facility] [address] [place] [address], [place] [phone] * Culture urine (09/26/2024 9:44 PM EDT) Culture, Urine 10,000-49,000 CFU/mL Mixed bacterial morphotypes present suggestive of possible contamination during collection. Suggest appropriate recollection if clinically indicated. 09/27/2024 1:[address] [facility] Urine Urine specimen obtained by clean catch procedure / Unknown Non-blood Collection / Unknown 09/26/2024 9:44 PM EDT 09/26/2024 9:57 PM EDT us Melissa VIDAL LAB MICROBIOLOGY - GENERAL ORDER [id number] Final Result [facility] [address] [place] [address], [place] [phone] * MR Brain wo Contrast (09/26/2024 6:19 [...] K/mcL LAB HEMETOLOGY METHOD [facility]24 [facility] RBC 4.00 3.80 - 4.80 M/mcL LAB HEMETOLOGY METHOD 09/26/2024 12:[address] [facility] Hemoglobin 11.0(L) 11.5 - 16.0 g/dL LAB HEMETOLOGY METHOD 09/26/2024 12:27 PM [facility] Hematocrit 36.4 35.0 - 47.0 % LAB HEMETOLOGY METHOD 09/26/2024 12:27 PM [facility] MCV 90.1 79.0 - 98.0 FL LAB HEMETOLOGY METHOD 09/26/2024 12:[address] [facility] MCH 27.2 27.0 - 32.0 pcg LAB HEMETOLOGY METHOD 09/26/2024 12:27 PM [facility] MCHC 30.2(L) 32.0 - 37.0 g/dL LAB HEMETOLOGY METHOD 09/26/2024 12:27 PM [facility] RDW 13.6 11.0 - 15.0 % LAB HEMETOLOGY METHOD 09/26/2024 12:27 PM [facility] Platelets 218 130 - 400 K/mcL LAB HEMETOLOGY METHOD 09/26/2024 12:27 PM [facility] MPV 9.4 7.0 - 11.0 FL LAB HEMETOLOGY METHOD 09/26/2024 12:27 PM [facility] NRBC 0.0 <1.0 % LAB HEMETOLOGY METHOD 09/26/2024 12:27 PM [facility] NRBC Absolute 0.00 <0.10 K/mcL LAB HEMETOLOGY METHOD 09/26/2024 12:27 PM [facility] [facility] Neutrophils Relative 86.7 % LAB HEMETOLOGY METHOD 09/26/2024 12:27 PM [facility] Lymphocytes Relative 6.4 % LAB HEMETOLOGY METHOD 09/26/2024 12:27 PM [facility] Monocytes Relative 6.1 % LAB HEMETOLOGY METHOD 09/26/2024 12:27 PM [facility] Eosinophils Relative 0.1 % LAB HEMETOLOGY METHOD 09/26/2024 12:27 PM [facility] Basophils Relative 0.1 % LAB HEMETOLOGY METHOD 09/26/2024 12:27 PM [facility] Immature Granulocytes Relative 0.6 % LAB HEMETOLOGY METHOD 09/26/2024 12:27 PM [facility] Neutrophils Absolute 7.44(H) 1.50 - 7.00 K/mcL LAB HEMETOLOGY METHOD 09/26/2024 12:27 PM [facility] Lymphocytes Absolute 0.55(L) 1.00 - 5.00 K/mcL LAB HEMETOLOGY METHOD 09/26/2024 12:27 PM [facility] Monocytes Absolute 0.52 0.20 - 1.00 K/mcL LAB HEMETOLOGY METHOD 09/26/2024 12:[address] [facility] Eosinophils Absolute 0.01 0.00 - 0.50 K/[facility] LAB HEMETOLOGY METHOD 09/26/2024 12:[address] [facility] Basophils Absolute 0.01 0.00 - 0.20 K/[facility] LAB HEMETOLOGY METHOD 09/26/2024 12:[address] [facility] Immature Granulocytes Absolute 0.05(H) 0.00 - 0.03 K/[facility] LAB HEMETOLOGY METHOD 09/26/2024 12:[address] [facility] Blood Venous blood specimen / Unknown Venipuncture / Unknown 09/26/2024 12:08 PM EDT 09/26/2024 12:16 PM EDT Maricarmen Hatfield DO LAB BLOOD ORDERABLES Final Result Performing Organization Address City/[facility]/ZIP Co de Phone Number [facility] [address] [place] [address], [place] [phone] * Activated partial thromboplastin time (09/26/2024 12:08 PM EDT) [facility] aPTT 29.7 24.1 - 39.3 sec LAB COAGULATION METHOD 09/26/2024 12:[address] [facility] Blood Venous blood specimen / Unknown Venipuncture / Unknown 09/26/2024 12:08 PM EDT 09/26/2024 12:16 PM EDT Maricarmen Hatfield DO LAB BLOOD ORDERABLES Final Result [facility] [address] [place] [address], [place] [phone] * Prothrombin time with INR (09/26/2024 12:08 PM EDT) [facility] Protime 11.8 10.6 - 13.9 sec LAB COAGULATION METHOD 09/26/2024 12:[address] [facility] INR 0.9 LAB COAGULATION METHOD 09/26/2024 12:[address] [facility] Blood Venous blood specimen / Unknown Venipuncture / Unknown 09/26/2024 12:08 PM EDT 09/26/2024 12:16 PM EDT Maricarmen Hatfield DO LAB BLOOD ORDERABLES Final Result Performing Organization Address [facility]/ZIP Co de Phone Number [facility] [address] [place] [address], [place] [phone] * Thyroid stimulating hormone (09/26/2024 12:08 PM EDT) TSH 1.29 0.40 - 4.00 mcIU/mL LAB CHEMISTRY METHOD 09/26/2024 6:[address] [facility] Blood Venous blood specimen / Unknown Venipuncture / Unknown 09/26/2024 12:08 PM EDT 09/26/2024 12:16 PM EDT Melissa VIDAL LAB BLOOD ORDERABLES Final Resul t Performing Organization Address [facility]/ZIP Co de Phone Number [facility] [address] [place] [address], [place] [phone] * Thyroxine free (09/26/2024 12:08 PM EDT) Free T4 1.14 0.70 - 1.80 ng/dL LAB CHEMISTRY METHOD 09/26/2024 6:[address] [facility] Blood Venous blood specimen / Unknown Venipuncture / Unknown 09/26/2024 12:08 PM EDT 09/26/2024 12:16 PM EDT Melissa VIDAL LAB BLOOD ORDERABLES Final Resul t Performing Organization Address [facility]/ZIP Co de Phone Number [facility] [address] [place] [address], * (ABNORMAL) POCT Glucose, blood (09/26/2024 11:46 AM EDT) Glucose POCT 126(H) 70 - 100 mg/dL 09/26/2024 11:[address] [facility] Blood Capillary blood specimen / Unknown 09/26/2024 11:46 AM EDT 09/26/2024 11:48 AM EDT Maricarmen Hatfield DO LAB POINT OF CARE T EST DOCKED DEVICE UNSOLICITED RESULTS Final Result Performing Organization Address [facility] Co de Phone Number [facility] [address] [place] [address], * CT Angio Head/Neck Stroke wo and/or w Contrast (09/26/2024 11:24 AM EDT) Anatomical Region Laterality Modality Head and Neck Computed Tomogra phy 09/26/2024 11:5 7 AM EDT Impressions 09/26/2024 12:06 PM EDT 1. No large vessel occlusion, intracranial aneurysm, dissection, or hemodynamically significant cervical carotid stenosis. 2. 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 Teleenio VIDAL ([id number]) -------- FINAL REPORT -------- Dictated By: Jhoana Chase Dictated Date: 09/26/2024 11:57 ET Assigned Physician: Jhoana Chase Reviewed and Electronically Signed By: Jhoana Chase Signed Date: 09/26/2024 12:06 ET Workstation ID: [id number] Transcribed By: Self Edit Transcribed Date: 09/26/2024 [...] brain was also performed. DLP: 2522.84 mGy/cm CarHoundT Iterative reconstruction technique FINDINGS: CTA: INTRACRANIAL VASCULATURE: The bilateral A1 and M1 segments are widely patent. The more distal branches of the anterior and middle cerebral arteries also appear patent. The basilar artery is widely patent and terminates in the bilateral rack puller. The right ASSEMBLY LINE ROBOT OPERATOR is partially supplied by the right internal [...] brain was also performed. DLP: 2522.84 mGy/cm FanGager (MyBrandz)peShoopi VCT Iterative reconstruction technique FINDINGS: CTA: INTRACRANIAL VASCULATURE: The bilateral A1 and M1 segments are widelypatent. The more distal branches of the anterior and middle cerebralarteries also appear patent. The basilar artery is widely patent andterminates in the bilateral rack puller. The right ASSEMBLY LINE ROBOT OPERATOR is partially supplied bythe right internal carotid [...] measuring 3.4 cm in diameter. Telerad YOUNG ([id number]) -------- FINAL REPORT -------- Dictated By: Jhoana Chase Dictated Date: 09/26/2024 11:57 ET Assigned Physician: Jhoana Chase Reviewed and Electronically Signed By: Jhoana Chase Signed Date: 09/26/2024 12:06 ET Workstation ID: [id number] Transcribed By: Self Edit Transcribed Date: 09/26/2024 [...] of interpretation on 09/26/24 by secure message ([email or web address]). Teleenio VIDAL ([id number]) A Critical Document Only message has been documented for the office of MARICARMEN HATFIELD in the IntelliF[employer] system on 09/26/2024 11:45 AM, Message ID [id number]. -------- FINAL REPORT -------- Dictated By: Jhoana Chase Dictated Date: 09/26/2024 11:41 ET Assigned Physician: Jhoana Chase Reviewed and Electronically Signed By: Jhoana Chase Signed Date: 09/26/2024 11:45 ET Workstation ID: [id number] Transcribed By: Self Edit Transcribed Date: 09/26/2024 11:41 ET Narrative 09/26/2024 11:45 AM EDT History: Stroke. Severe headache. Nausea. Altered mental status. Comparison: 09/16/16 Technique: Contiguous axial images were obtained at 2.5 mm intervals through the posterior fossa and at 5 mm intervals through the remainder of the brain without intravenous contrast. DLP: 808.85 mGy/cm deltamethodpeShoopi VCT Iterative reconstruction technique Findings: The ventricular [...] brain without intravenous contrast. DLP: 808.85 mGy/cm deltamethodpeShoopi VCT Iterative reconstruction technique Findings: The ventricular [...] time ofinterpretation on 09/26/24 by secure message ([email or web address]). Telerad YOUNG ([id number]) A Critical Document Only message has been documented for the office ofMARICARMEN HATFIELD in the IntelliF[employer] system on09/26/2024 11:45 AM, Message ID [id number]. -------- FINAL REPORT -------- Dictated By: Jhoana Chase Dictated Date: 09/26/2024 11:41 ET Assigned Physician: Jhoana Chase Reviewed and Electronically Signed By: Jhoana Chase Signed Date: 09/26/2024 11:45 ET Workstation ID: [id number] Transcribed By: Self Edit Transcribed Date: 09/26/2024 [...] AM EDT Narrative 06/22/2017 1:56 PM EDT [facility] Diagnostic Imaging Department [address] [place], [place] [id number] Patient: EDUARDO ENGEL D.O.B./Age/Sex: 1950 - 66 - F Unit#: [id number] Location/Status: SPDIMAM/REG CLI Mnemonic[facility] Ordering Physician: LITA TORRES MD [facility] Dexa Axial Skeleton - 06/22/17 - 729 [facility] Dexa Axial Skeleton INDICATION: POST MENOPAUSE [...] placing the patient at risk for fracture. [id number] A report detailing these results has been enclosed. Dictating Physician: BEN GASTON MD Electronically Signed by: BEN GASTON MD Dic Date/Time: 06/22/17 1354 Sign date/Time: 06/22/17 1356 Procedure Note Ben Gaston MD - 03/31/2022 [facility] Diagnostic Imaging Department [address] [place] [address] Patient: ABREU EDUARDO NAGY./Age/Sex: 1950 - 66 -F Unit#: [id number] Location/Status: SPDIMAM/REG CLI Mnemonic/Ordering Site: [facility] Ordering Physician: LITA TORRES MD [facility] Dexa Axial Skeleton - 06/22/17 - 729 [facility] Dexa Axial Skeleton INDICATION: POST MENOPAUSE Technique: Bone densitometry was performed utilizing dual energy x-ray absorptiometry (DEXA). The lumbar spine is evaluated in the AP projectionfrom L1 through L4. The proximal femora are evaluated in the AP projection bilaterally. [facility] Findings: AP spine: Bone mineral density: 0.983 gm/cm2 T-score: -1.5 Femoral total (mean, bilateral): Bone mineral density: 0.704 gm/cm2 T-score: -2.4 Left femoral neck: Bone mineral density: 0.618 gm/cm2 T-score: -3.0 IMPRESSION: Findings suggesting osteoporosis, placing the patient at risk forfracture. 63931 A report detailing these results has been [...] ID:[id number] Group ID:SCO Type:Not on file Address: [place] [address] [place] [id number] Advance Directives * Full Code - Default [...] currently active code status orders. Care Teams Mine Shifter Relationship Specialty Start Date End Date Addi Holland [facility] [address] [facility] [place] PCP - General Family Medicine 03/04/21
--- OUTSIDE RECORDS SUMMARY | 2024-10-26 07:39 | XMS_ITS | Patient Health Record ---
Author Organization [employer]. Address [address] [place] [address] Care Team Providers Care Cup Machine Operator Name Role Phone Macario Scott Primary Care Provider Allergies Allergen (clinical drug ingredient) Drug/Non Drug Allergy documented on EMR Reaction Allergy Type Onset Date Status tramadol Tramadol rash Drug Allergy Active Results Component Value Reference Range Notes EKG Electrocardiogram Reviewed date:03/24/2024 02:15:49 PM Interpretation: Performing Lab: Notes/Report: Lipid Panel-Q-LC Reviewed date:03/31/2024 08:45:24 AM Interpretation: Performing Lab:[facility] [address] [id number], Phone - [phone], Director - Bree Notes/Report: Cholesterol, Total 222 100-199 mg/dL Triglycerides 65 0-149 mg/dL HDL Cholesterol 76 >39 mg/dL VLDL Cholesterol Koby 11 5-40 mg/dL LDL Chol Calc (NIH) 135 0-99 mg/dL Comprehensive Metabolic Pane l 14+eGFR-LC-Q Reviewed date:03/31/2024 08:45:20 AM Interpretation: Performing Lab:[facility] [address] [place] [id number], Phone - [phone], Director - Bree Notes/Report: Glucose 82 70-99 [...] IU/L ALT (SGPT) 9 0-32 IU/L Urinalysis, Tpobfail-HG-S Reviewed date:03/31/2024 08:45:17 AM Interpretation: Performing Lab:[facility] [id number], Phone - [phone], Director - Bree Notes/Report: Specific [facility] 1.020 1.005-1.030 pH 7.0 5.0-7.5 Urine-Color Yellow [...] et-LC-Q Reviewed date:03/31/2024 08:45:13 AM Interpretation: [facility] [address] [place] [id number], Phone - [phone], Director - Bree Notes/Report: WBC 7.0 3.4-10.8 [...] Urine-LC Reviewed date:03/31/2024 08:45:06 AM Interpretation: Performing Lab:[facility] [address] [id number], Phone - [phone], Director - Bree Notes/Report: Creatinine, Urine 122.7 Not Estab. mg/dL Albumin, Urine 12.5 Not Estab. ug/mL Alb/Creat Ratio 10 0-29 mg/g creat Normal: 0 - 29 Moderately increased: 30 - 300 Severely increased: >300 Occult Blood, Fecal, IA-LAB BRENNON Reviewed date:03/31/2024 08:45:03 AM Interpretation: Performing Lab:[facility] [address] [id number], Phone - [phone], - Bree Notes/Report: Occult Blood, Fecal, IA Negative Negative Cardiovascular Risk Assessme nt Reviewed date:04/26/2024 08:51:11 AM Interpretation: Performing Lab:[facility] [address] [id number], Phone - [phone], - Bree Notes/Report: Interpretation Note Supplemental report is available. PDF . Lipid Panel With LDL/HDL Rat io-LC Reviewed date:04/26/2024 08:51:11 AM Interpretation: Performing Lab:[facility] [address] [id number], Phone - [phone], Director Paulette Giron Notes/Report: Cholesterol, Total 232 100-199 mg/dL Triglycerides 76 0-149 mg/dL HDL Cholesterol 71 >39 mg/dL VLDL Cholesterol Koby 13 5-40 mg/dL LDL Chol Calc ([facility]) 148 0-99 mg/dL LDL/HDL Ratio 2.1 0.0-3.2 ratio LDL/HDL Ratio Men Women 1/2 Avg.Risk 1.0 1.5 Avg.Risk 3.6 3.2 2X Avg.Risk 6.2 5.0 3X Avg.Risk 8.0 6.1 Comprehensive Metabolic Pane l 14+eGFR-LC-Q Reviewed date:04/26/2024 08:51:11 AM Interpretation: Performing Lab:[facility] [address] [id number], Phone - [phone], Director - [facility] Notes/Report: Glucose 94 70-99 mg/dL BUN 14 [...] IU/L ALT (SGPT) 10 0-32 IU/L Urinalysis, Qgfamlme-IP-Y Reviewed date:04/26/2024 08:51:11 AM Interpretation: Performing Lab:[facility], [address] [place] [id number], Phone - [phone], [facility] Notes/Report: Specific [facility] 1.016 1.005-1.030 pH 7.0 5.0-7.5 Urine-Color Yellow [...] Reviewed date:04/26/2024 08:51:11 AM Interpretation: Performing Lab:[facility] [address] [id number], Phone - [phone], Director - Bree Notes/Report: WBC 5.5 3.4-10.8 [...] Reviewed date:04/26/2024 08:51:11 AM Interpretation: Performing Lab:[facility], [address] [place] [id number], Phone - [phone], [facility] Notes/Report: Ur.Collec. Interval 0 Creatinine, Urine 86.5 Not Estab. mg/dL Albumin, Urine 3.9 Not Estab. ug/mL Alb/Creat Ratio 4.5 0.0-30.0 ug/mg creat Alb, U Excret. Rate 0.0-20.0 ug/min No to bakari volume submitted. Unable to calculate 24 hour result. Albumin,Ur mg/day TNP Unable to calculate result since non-numeric result obtained for component test. TSH reflex to T4 Reviewed date:04/26/2024 08:51:11 AM Interpretation: Performing Lab:[facility] [address] [id number], Phone - [phone], [facility] Notes/Report: TSH 3.730 0.450-4.500 uIU/mL TSH reflex to T4 Reviewed date:03/31/2024 08:44:59 AM Interpretation: Performing Lab:[facility], [address] [place] [id number], Phone - [phone], Director - [facility] Notes/Report: TSH 1.770 0.450-4.500 uIU/mL Cardiovascular Risk Assessme nt Reviewed date:04/06/2024 12:00:17 PM Interpretation: Performing Lab:[facility] [address] [id number], Phone - [phone], Director - Bree Notes/Report: Interpretation Note Supplemental report is available. PDF . Occult Blood, Fecal, IA-LAB BRENNON Reviewed date:05/04/2024 04:08:08 PM Interpretation: Performing Lab:[facility], [address] [place] [id number], Phone - [phone], Director [facility] Notes/Report: Occult Blood, Fecal, IA Negative Negative Reason For Referral Reason If additional kathy ting is needed, please refer back to PCP. Please fax consult notes and/or results of procedure approved to [phone]. Thanks! ~Annual Eye Exam~ Diagnosis 1 Encounter for examin ation of eyes and vision without abnormal findings (Z01.00) [facility] Referring Provider First Name Macario Referring Provider Last Name Tyler Referring Provider Speciality General Pr actice Referred Provider [employer], [facility] Referred Provider Specialty Music Coordinator Referral Priority Routine Reason Please fax consul t notes and/or results of procedure approved to [phone]. Thanks! CONSULT ONLY - MANAGED CARE ~Annual Eye Exam~ Diagnosis 1 Encounter for examin ation of eyes and vision without abnormal findings (Z01.00) Referral [facility] Referring Provider First Name Macario Referring Provider Last Name Tyler Referring Provider Speciality General Pr actice Referred Provider [employer] Referred Provider Specialty Music Coordinator Referral Priority Routine Medications Medication SIG (Take, [...] Problem Status W/U Status Risk Notes Problem 235725193 Mixed hyperlipidemia (E78.2) Active confirmed Problem 270919100391305 Hypertensive chronic kidney disease with stage 1 through stage 4 chronic kidney disease, or unspecified chronic kidney disease (I12.9) Active confirmed Problem 961781651 Fibromyalgia (M79.7) Active confirmed Problem 657272877 Chronic insomnia (F51.04) Active confirmed Problem 517903751 Vertigo (R42) Active confirmed Problem 735968978 Acquired hypothyroidism (E03.9) Active confirmed Problem 51962934 Migraine syndrom e (G43.909) Active confirmed Problem 017052602 CKD (chronic kidney disease), stage II (N18.2) Active confirmed GFR 75 as per lab results from Problem 9996616 Former smoker (Z87.891) Active confirmed Problem 93301479 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) Active confirmed Problem 890100579 Severe persisten t asthma without complication (J45.50) [...] Encounter Location Date Provider Diagnosis [facility] [address] [address] 03/24/2024 [facility] [address] [facility] [address] [place] [address] 03/24/2024 [facility] [address] [facility] [address] [place] [address] 03/31/2024 Macario Scott [facility] [address] [address] 04/24/2024 Macario Scott Essential (primary) hypertension I10 ; Mixed hyperlipidemia E78.2 and Acquired hypothyroidism E03.9 [facility] [address] [address] 03/24/2024 Macario Scott Essential (primary) hypertension I10 [...] eyes and vision without abnormal findings Z01.[address] [address] 03/31/2024 Macario Scott Hypertensive chronic kidney disease [...] to 25.9 in adult Z68.25 [facility] [address] [address] 05/02/2024 Macario Scott Severe persistent asthma without [...] Comprehensive Metabolic Panel 14+eGFR-LC -Q 05/02/2024 Urinalysis, Qhjmmrjq-NU-A 05/02/2024 CBC With Differential/Kabosncu-XZ-J 04/13 Mammo SCREENING MAMMO DIGITAL, SOHEILA 05/02 Mammo SCREENING MAMMO DIGITAL, SOHEILA 03/24 CHEST X-RAY (PA/LATERAL) 03/24/2024 CHEST X-RAY (PA/LATERAL) 05/02/2024 Future Test Test Name Order Date Lipid Panel With LDL/HDL Ratio-LC 2024 Comprehensive Metabolic Panel 14+eGFR-LC -Q 09/25/2024 Urinalysis, Zhbrcdin-MS-N 09/25/2024 CBC With Differential/Jsrqdayj-AS-A 09/10 Insurance Providers Payer Name Payer Address Payer Phone Subscriber Number Group Number Insured Name Patient Relationship to Insured Coverage Start Date Coverage End Date [facility] [address] [address] [place] [phone] [id number] [place] Self - patient is the insured Medical (General) History Medical History History ICD Code hyperension asthma sinusitis migraines thyroid Surgical History Surgery Date(Month/Year) hystrectomy total 1996 right leg n/a nose n/a carpal tunel on both hands n/a
--- NOTE | 2024-10-26 08:12 | A.OFFPC_ITS ---
Vital Signs 10/26/24 08:13 Height 5 ft 2 in Weight 141 lb BMI 25.8 BP 110/70 Blood Pressure Location Lt brachial Position Sitting Respiration 15 Pulse 64 Pulse Source Pulse Oximeter Temp 98.3 F Pulse Oximetry (%) 98 Oxygen Delivery Method Room Air Oxygen Flow Rate 98.3 Intake Visit Reasons: [facility] HDF Intake Note: Pt is here today for a [facility] HD Allergies tramadol Allergy (Severe, Verified 10/26/24 08:15) Itching Tobacco use date assessed: 10/26/24 Fall risk assessment: 2 + Falls in past year Last assessed Fall Risk: 10/26/24 Dental Screening Dental Screen Date: 10/26/24 Did you have a dental visit in the last 12 months?: Yes Did you have a dental problem in the last 6 months where you did not have access to dental care?: No Was dental information given to patient?: Patient has dentist HPI TCM TCM Information Date of Discharge 09/29/24 Discharged From Other ([facility] Interactive Contact Date (Reference documentation from this date) 10/06/24 HPI Comments History of Present Illness Details Patient is a 74-year-old female with a history of hypertension hyperlipidemia migraines asthma who went to the emergency room at [facility] on September 26 after she was found to have a left facial droop and right arm weakness at home by her NAIL GALVANIZER, she was also complaining of a headache and some vomiting. In the emergency department, her vital signs were stable except her oxygen saturation was 86% on room air and she was placed on nasal cannula. She did have a stroke workup including a CT of the head, a CTA of the head and neck which were all negative. Creatinine was normal, CRP and ESR were normal the JAIME titer was negative, renal function was normal however she was found to have an elevated CK at 3151. Chest x-ray showed pulmonary congestion. She was admitted, during her admission, she was given IV Lasix, had an echocardiogram which an EF of 55% and no wall motion abnormalities, she was seen by a piped buttonhole machine operator during her admission. Her CK trended down, a brain MRI was found to be negative, she was weaned off of oxygen and her weakness improved. She was seen by Neurology and they recommended an EMG to be done as out patient. She was discharged with Fioricet cyclobenzaprine and reason Triptan for her headaches, she was also given VNA services. Since her discharge, she reports she still has frequent headaches, she did picker/puller the Fioricet and cyclobenzaprine and used it all and is asking for a refill on zofran and fioricet. She states sometimes she has a LEIVA for 3 weeks straight, Fioricet works well. Has tried taking Excedrin but it bettencourt her stomach. If she doesn't take any meds for her LEIVA, she vomits, endorses light and sound sensitivity as well. She did take the triptan previously and it works but not for long. She had the EMG done last week but we do not have results. She has not tried Nurtec. She does have VNA services. She is also asking about an esophageal manometry test she had done in the spring at [facility]. She never receieved the results. [facility] Medical History Insomnia PONV (postoperative nausea and vomiting) GERD (gastroesophageal reflux disease) Oropharyngeal dysphagia Gastritis Migraines Dyslipidemia Hypothyroidism Osteoporosis Anxiety Essential hypertension Surgical History History of shoulder surgery History of section History of nasal surgery History of surgery History of carpal tunnel surgery History of neck surgery Family History Father Cancer of prostate Mother HTN (hypertension) Maternal Grandmother Stroke Asthma Brother Substance use disorder Social History Household Members: Spouse Caregiver staying overnight: No Housing: Apartment Are you a primary day care home provider to a significant other at home: Yes (, he also has a NAIL GALVANIZER) Do you presently have 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 or other home services: No 75 years or older and lives alone: No Alcohol intake: never Patient Tobacco Use Status: Former Tobacco user Tobacco use type: Cigarette e-Cigarette/Vaping Use: Never Used Second Hand Smoke Exposure: No service: No Current occupational status: retired Cognitive needs: No Hearing needs: No Vision needs: No Questionnaire Thrive Questionnaire Date Thrive assessed: 09/12/24 I am a: Patient What is your living situation today?: I do not have a steady places to live I am temporarily staying with others Within the past 12 months, did the food you bought not last and you didn't have the money to get more?: Never true Within the past 12 months, did you worry whether your food would run out before you got money to buy more?: Never true Do you have trouble paying for medicines?: No Do you have trouble getting transportation to medical appointments?: No Do you have trouble paying your heating and electricity bill?: No Do you have trouble taking care of your child, family member or friend?: Yes Do you have trouble with day-to-day activities such as bathing, preparing meals, shopping, managing finances, etc.?: Yes Are you currently unemployed and looking for a job?: No Are you interested in more education?: No Please select the resources that you would like help with: Housing/Care Home Currently or been in a relationship where the following occur: I choose not to answer THRIVE Score: 1 JUANA-7 AMB Questionnaire JUANA-7 Date JUANA - 7 assessed: 09/07/23 Source: Developed by Drs. Jerrod Jain, aSlly Davis, Sixto Noel and colleagues, with an educational rosalee from [employer]. Review of Systems Const All systems reviewed & are unremarkable except as noted in HPI and below Physical exam (Primary Care) Vital Signs: Last Vital Signs Temp 98.3 F 10/26/24 08:13 Pulse 64 10/26/24 08:13 Resp 15 10/26/24 08:13 BP 110/70 10/26/24 08:13 Pulse Ox 98 10/26/24 08:13 Oxygen Delivery Method Room Air 10/26/24 08:13 Oxygen Flow Rate 98.3 10/26/24 08:13 BMI result Body Mass Index 25.8 Tobacco/Smoking Status: Tobacco use Status Tobacco use date assessed 10/26/24 10/26/24 08:19 Patient Tobacco Use Status Former Tobacco user 10/26/24 08:12 Tobacco use type Cigarette 10/26/24 08:12 e-Cigarette/Vaping Use Never Used 10/26/24 08:12 Thrive Assessment: Date of Thrive Assessment Date Thrive assessed 09/12/24 10/26/24 08:12 Currently or been in a relationship where the following occur: I choose not to answer Const General: cooperative, healthy appearing, comfortable, no acute distress and well developed Orientation/consciousness: patient oriented x3 Limitations: no limitations HENMT Head: Yes normal to inspection Ears: hearing grossly normal bilaterally General nose exam: Normal external nose present Face and sinus: Yes normal facial exam Eyes General: appearance normal, both eyes and all related structures Neck Neck: Yes normal visual inspection and Yes full ROM Resp Effort & Inspection: normal respiratory effort and able to speak in complete sentences Auscultation: clear to auscultation bilaterally Cardio Rate: regular rate Rhythm: regular rhythm Heart sounds: normal S1 and S2 Skin General skin exam: no rashes or lesions noted Neuro General: patient oriented x3 Extrem General: Yes normal to inspection Coding Level of Care Code Est Pt Level 4 (22334) Diagnoses Hospital discharge follow-up Z09 Migraines G43.909 Migraine type: unspecified Assessment & Plan Assessment & Plan (1) Hospital discharge follow-up: Code(s): Z09 - Encounter for follow-up examination after completed treatment for conditions other than malignant neoplasm Category: Medical Plan: I will try to obtain the EMG results that she had done at [facility] Neurology and call the patient back to review them. I will also try to find the esophageal manometry results that she had done in spring a [facility] and call her to review those results with her (2) Migraines: Code(s): G43.909 - Migraine, unspecified, not intractable, without status migrainosus Category: Medical Qualifiers: Migraine type: unspecified Plan: We discussed her migraines, I recommended she try the Rizatriptan and if that does not work, she can try the Fioricet after. She should stay well hydrated and get plenty of rest. Medications: New ondansetron 4 mg PO Q8H PRN 10 tabs 0RF nausea and vomiting ccnlkegcnc-frnuepployoaf-cjjl 50-300-40 mg (Fioricet) do not exceed 6 caps per day 2 caps PO Q8H PRN 30 caps 0RF pain Refilled rizatriptan take 1 tab at onset of headache; if no relief may repeat 1 tab after at least 2 hrs; max = 3 tabs/24 hr PO 14 tabs 1RF
[2024-10-26 08:13] VITALS: BP 110/70; PULSE 64; RESP 15; TEMP 36.8; O2SAT 98; BMI 25.8
== END 2024-10-26 09:19 | disposition home or self-care (01) ==
LOC: HO.HMCC 07:37
PROVIDERS: Visit Provider Physician Assistant
DX: Z09 Encounter for follow-up examination after completed treatment for conditions other than malignant neoplasm (principal); G43.909 Migraine, unspecified, not intractable, without status migrainosus

== ENCOUNTER → 2024-10-26 07:36 | Outpatient (BNVA) | payer OTHER, SELFPAY | PROVIDERS: Visit Provider Physician Assistant | DX: Z09 Encounter for follow-up examination after completed treatment for conditions other than malignant neoplasm (principal); G43.909 Migraine, unspecified, not intractable, without status migrainosus; I10 Essential (primary) hypertension; E78.5 Hyperlipidemia, unspecified; J45.909 Unspecified asthma, uncomplicated | CPT/HCPCS: 99212 ==

== ENCOUNTER 2024-11-09 06:31 | Outpatient (REF) | payer OTHER, SELFPAY ==
--- OUTSIDE RECORDS SUMMARY | 2024-04-04 04:30 | XMS_ITS ---
Author Organization [facility] Address [address] [place] [address] Care Team Providers Care Grey Percher Name Role Phone AUTUMN PADILLA Primary Care Provider REASON FOR VISIT follow up labs + MMSE Encounters Encounter Location Date Provider Diagnosis [facility] [address] [place] [address] 04/04/2024 AUTUMN BEASLEY Plan Of Treatment No Information Progress Notes * JONAH Marie JORGEDO B:1950 (74 yo F)Acc No.[id number]:04/04/2024 Progress Notes Patient: Marie DUVAL Provider: Lawson BEASLEY MD :1950 A ge:73 Y S ex:Female Date:04/04/2024 Phone: Address:[address] [place], [place] [phone] Structured Data:Consent to r eceive voicemail/text messages? : YES Subjective: * Chief Complaints: * 1 . follow up labs + MMSE. * Medical History: Objective: * Vitals: Assessment: Plan: * Treatment: * Billing Information: * Visit Code: * Procedure Codes: * Electronic signature of AUTUMN BEASLEY MD on 11/09/2024 at 06:34 AM EDT Sign off status: Pending * Provider: Lawson BEASLEY MD Date: 06/05/2023 Generated for Printi ng/Faxing/eTransmitting on: 0 11/09/2024 06:34 AM EDT
--- NOTE | ~2024-11-09 | FL_ITS ---
EXAMINATION: FL GUIDANCE ONLY HISTORY: M47.812 - Spondylosis without myelopathy or radiculopathy, cervical region COMPARISON: None available. TECHNIQUE: Fluoroscopy time: 0.1 minutes. Cumulative Dose: 0.898 mGy. DAP: 0.28524 mGym2 Images: 3. FINDINGS: AP and lateral fluoroscopic spot films of the cervical spine demonstrate needles and contrast material in place on the right. FL/FL guidance in treatment room IMPRESSION: Fluoroscopy during procedure. Please see procedure report for additional information. Electronically signed by: Jerrod Skaggs MD 11/09/2024 03:29 PM EDT
--- OUTSIDE RECORDS SUMMARY | 2024-11-09 06:34 | XMS_ITS | Patient Health Record ---
Author Organization [employer]. Address [address] [place] [address] Care Team Providers Care Rn Circulating Name Role Phone Macario Scott Primary Care Provider Allergies Allergen (clinical drug ingredient) Drug/Non Drug Allergy documented on EMR Reaction Allergy Type Onset Date Status tramadol Tramadol rash Drug Allergy Active Results Component Value Reference Range Notes Lipid Panel With LDL/HDL Rat io-LC Reviewed date:04/26/2024 08:51:11 AM Interpretation: Performing Lab:[facility] [place] [facility] [address] [place] [place] [id number], Phone - [phone], Director - Bree Notes/Report: Cholesterol, Total 232 [...] 14+eGFR-LC-Q Reviewed date:04/26/2024 08:51:11 AM Interpretation: Performing Lab:[facility] [place], [address] [place], [place] [id number], Phone - [phone], Director - Bree Notes/Report: Glucose 94 70-99 [...] IU/L ALT (SGPT) 10 0-32 IU/L Urinalysis, Jgdkheyz-QR-X Reviewed date:04/26/2024 08:51:11 AM Interpretation: Performing Lab:[facility] [place], [address] [place] [id number], Phone - [phone], Director - Bree Notes/Report: Specific Brady 1.016 1.005-1.030 pH 7.0 5.0-7.5 Urine-Color Yellow [...] Reviewed date:04/26/2024 08:51:11 AM Interpretation: Performing Lab:[facility] [place], [facility] [address] [place] [id number], Phone - [phone], Director - Bree Notes/Report: WBC 5.5 3.4-10.8 [...] Ur-LC Reviewed date:04/26/2024 08:51:11 AM Interpretation: Performing Lab:[facility] [address] [id number], Phone - [phone], Director - MDShanita Notes/Report: Ur.Collec. Interval 0 Creatinine, Urine 86.5 Not Estab. mg/dL Albumin, Urine 3.9 Not Estab. ug/mL Alb/Creat Ratio 4.5 0.0-30.0 ug/mg creat Alb, U Excret. Rate 0.0-20.0 ug/min No to bakari volume submitted. Unable to calculate 24 hour result. Albumin,Ur mg/day TNP Unable to calculate result since non-numeric result obtained for component test. TSH reflex to T4 Reviewed date:04/26/2024 08:51:11 AM Interpretation: Performing Lab:[address] [id number], Phone - [phone], Director - MDShanita Notes/Report: TSH 3.730 0.450-4.500 uIU/mL TSH reflex to T4 Reviewed date:03/31/2024 08:44:59 AM Interpretation: Performing Lab:[facility] [address] [id number], Phone - [phone], Director - Bree Notes/Report: TSH 1.770 0.450-4.500 uIU/mL Occult Blood, Fecal, IA-[facility] Reviewed date:05/04/2024 04:08:08 PM Interpretation: Performing Lab:[address] [id number], Phone - [phone], Director - Bree Notes/Report: Occult Blood, Fecal, IA Negative Negative Microalbumin/Creatinine Rati o, Random Urine-LC Reviewed date:03/31/2024 08:45:06 AM Interpretation: Performing Lab:[address] [id number], Phone - [phone], Director - [place] Notes/Report: Creatinine, Urine 122.7 Not Estab. mg/dL Albumin, Urine 12.5 Not Estab. ug/mL Alb/Creat Ratio 10 0-29 mg/g creat Normal: 0 - 29 Moderately increased: 30 - 300 Severely increased: >300 Occult Blood, Fecal, IA-[facility] Reviewed date:03/31/2024 08:45:03 AM Interpretation: Performing Lab:[address] [id number], Phone - [phone], Director - MDFarrier Notes/Report: Occult Blood, Fecal, IA Negative Negative EKG Electrocardiogram Reviewed date:03/24/2024 02:15:49 PM Interpretation: Performing Lab: Notes/Report: Lipid Panel-Q-LC Reviewed date:03/31/2024 08:45:24 AM Interpretation: Performing Lab:[address] [id number], Phone - [phone], Director - MDFarrier Notes/Report: Cholesterol, Total 222 100-199 mg/dL Triglycerides 65 0-149 mg/dL HDL Cholesterol 76 >39 mg/dL VLDL Cholesterol Koby 11 5-40 mg/dL LDL Chol Calc (NIH) 135 0-99 mg/dL Comprehensive Metabolic Pane l 14+eGFR-LC-Q Reviewed date:03/31/2024 08:45:20 AM Interpretation: Performing Lab:[address], [place], [place] [id number], Phone - [phone], Director - [facility] Notes/Report: Glucose 82 70-99 mg/dL BUN 9 [...] IU/L ALT (SGPT) 9 0-32 IU/L Urinalysis, Afjlpysu-DN-B Reviewed date:03/31/2024 08:45:17 AM Interpretation: Performing Lab:[facility] [id number], Phone - [phone], Director - [facility] Notes/Report: Specific Brady 1.020 1.005-1.030 pH 7.0 5.0-7.5 Urine-Color Yellow [...] et-LC-Q Reviewed date:03/31/2024 08:45:13 AM Interpretation: Performing Lab:[facility] [id number], Phone - [phone], Director - Bree Notes/Report: WBC 7.0 3.4-10.8 [...] % Immature Grans (Abs) 0.0 0.0-0.1 x10E3/uL Cardiovascular Risk Assessme nt Reviewed date:04/26/2024 08:51:11 AM Interpretation: Performing Lab:[facility] [place], [facility] [place], [place] [id number], Phone - [phone], Director - Bree Notes/Report: Interpretation Note Supplemental report is available. PDF . Cardiovascular Risk Assessme nt Reviewed date:04/06/2024 12:00:17 PM Interpretation: Performing Lab:[facility] [place], [address] [place], [place] [id number], Phone - [phone], Director - Bree Notes/Report: Interpretation Note Supplemental report is available. PDF . Reason For Referral Reason If additional kathy ting is needed, please refer back to PCP. Please fax consult notes and/or results of procedure approved to [phone]. Thanks! ~Annual Eye Exam~ Diagnosis 1 Encounter for examin ation of eyes and vision without abnormal findings (Z01.00) [facility] Referring Provider First Name Macario Referring Provider Last Name Tyler Referring Provider Speciality General Pr actice Referred Provider [employer], [facility] Referred Provider Specialty Artisan Plasterer Referral Priority Routine Reason Please fax consul t notes and/or results of procedure approved to [phone]. Thanks! CONSULT ONLY - MANAGED CARE ~Annual Eye Exam~ Diagnosis 1 Encounter for examin ation of eyes and vision without abnormal findings (Z01.00) Referral Organization [facility] Referring Provider First Name Macario Referring Provider Last Name Tyler Referring Provider Speciality General Pr actice Referred Provider [employer], [facility] Referred Provider Specialty Artisan Plasterer Referral Priority Routine Medications Medication SIG (Take, [...] Problem Status W/U Status Risk Notes Problem 852121601 Mixed hyperlipidemia (E78.2) Active confirmed Problem [id number] Hypertensive chronic kidney disease with stage 1 through stage 4 chronic kidney disease, or unspecified chronic kidney disease (I12.9) Active confirmed Problem 901735648 Fibromyalgia (M79.7) Active confirmed Problem 429071772 Chronic insomnia (F51.04) Active confirmed Problem 921850595 Vertigo (R42) Active confirmed Problem 781031945 Acquired hypothyroidism (E03.9) Active confirmed Problem 73391131 Migraine syndrom e (G43.909) Active confirmed Problem 489738726 CKD (chronic kidney disease), stage II (N18.2) Active confirmed GFR 75 as per lab results from Problem 2535419 Former smoker (Z87.891) Active confirmed Problem 00516122 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) Active confirmed Problem 149627024 Severe persisten t asthma without complication (J45.50) [...] N/A Encounters Encounter Location Date Provider Diagnosis [facility] [address] [address] 03/24/2024 [facility] [address] [facility] [address] [facility] [place] [address] 03/24/2024 [facility] [address] [facility] [address] [place] [address] 03/31/2024 Macario Scott [facility] [address] [address] 04/24/2024 Macario Scott Essential (primary) hypertension I10 ; Mixed hyperlipidemia E78.2 and Acquired hypothyroidism E03.9 [facility] [address] [address] 03/24/2024 Macario Scott Essential (primary) hypertension I10 [...] eyes and vision without abnormal findings Z01.[address] [address] 03/31/2024 Macario Scott Hypertensive chronic kidney disease [...] of 25.0 to 25.9 in adult Z68.25 [facility] [address] [address] 05/02/2024 Macario Scott Severe persistent asthma without [...] Comprehensive Metabolic Panel 14+eGFR-LC -Q 05/02/2024 Urinalysis, Vgkeqrec-KA-B 05/02/2024 CBC With Differential/Omzqclpp-KV-Y 04/13 Mammo SCREENING MAMMO DIGITAL, SOHEILA 05/02 Mammo SCREENING MAMMO DIGITAL, SOHEILA 03/24 CHEST X-RAY (PA/LATERAL) 05/02/2024 CHEST X-RAY (PA/LATERAL) 03/24/2024 Future Test Test Name Order Date Lipid Panel With LDL/HDL Ratio-LC 2024 Comprehensive Metabolic Panel 14+eGFR-LC -Q 09/25/2024 Urinalysis, Nhtaklbj-WN-Q 09/25/2024 CBC With Differential/Zwskpcfj-PP-C 09/10 Insurance Providers Payer Name Payer Address Payer Phone Subscriber Number Group Number Insured Name Patient Relationship to Insured Coverage Start Date Coverage End Date [facility] [address] [address] [place] [phone] [id number] [place] Self - patient is the insured Medical (General) History Medical History History ICD Code hyperension asthma sinusitis migraines thyroid Surgical History Surgery Date(Month/Year) hystrectomy total 1996 right leg n/a nose n/a carpal tunel on both hands n/a
--- OUTSIDE RECORDS SUMMARY | 2024-11-09 06:34 | XMS_ITS | Clinical Summary ---
Author Organization [facility] Address [address] [place] [address] Phone Care Team Providers Care Field Auditor Name Role Phone Addi Holland NP Primary Care Provider Allergies Active Allergy Reactions Criticality Noted Date Comments Tramadol Rash 09/26/2024 Medications rizatriptan (MAXALT) 10 mg tablet Take 1 tablet (10 mg total) by mouth 1 (one) time if needed for migraine. May repeat in 2 hours if unresolved. Do not exceed 30 mg in 24 hours. Active cyclobenzaprine (FLEXERIL) 10 mg tabletIndicatio ns:Muscle pain Take 1 tablet (10 mg total) by mouth 2 (two) times a day if needed for muscle spasms for up to 20 days. 10 tablet 09/29/2024 Active butalbital-acet aminophen-caffe ine (FIORICET, ESGIC) 50-325-40 mg per tablet Take 2 tablets by mouth every 8 (eight) hours if needed for headaches. 12 tablet 09/29/2024 Active Active Problems Problem Noted Date Diagnosed Date TIA (transient ischemic attack) 09/26/2024 Encounters Date Type Department Care Team Description 10/02/2024 12:55 PM EDT - 10/02/2024 11:59 PM EDT Hospital Encounter [facility] Neurodiagnostic [address] [place] [address] Myopathy Discharge Disposition: Home or Self Care 09/26/2024 11:04 AM EDT - 09/29/2024 4:43 PM EDT Hospital Encounter [facility] Urology Unit [address] [place] [address] Maricarmen Hatfield DO Montano, Gary L, MD [...] TUNNEL REL UPPER GASTROINTESTINAL ENDOSCOPY 08/18/2016 PROCEDURE: AL UPPER GI ENDOSCOPY PERFORMED; COMMENT: Erosive gastritis, [...] care for your loved ones. For example, children's service worker or elderly care for an older adult? [...] 06/28/2019, 12/31 Colorectal Cancer Screening: Colonoscopy 03/15/2022 Hepatitis C Screening 03/15/2022 Medicare Annual Wellness Visit 03/15/2022 COVID-19 Vaccine ( season) 2023 03/21/2021, 09/03/2020, 08/13/2020 Depression Screening 04/12/2024 Influenza Vaccine (#1) 2024 , 12/28/2019, 02/24/2018, [...] breast RILEY DEXA AXIAL SKELETON Routine 06/23/19 18 1:56 PM EDT Asymptomatic menopausal state from Last 3 Months or Most Recently Relevant to Health Maintenance Results * EMG two limbs (10/02/2024 2:10 PM EDT) Narrative Lizbeth Reyes MD - 10/02/2024 3:57 PM EDT Images from the original result were not included. [facility] [address] [place] [address] Electromyograph Report Date of service: 10/02/24 Patient [...] original note were not included. [facility] [address] [place] [address] Electromyograph Report Date of service: 10/02/24 Patient [...] l Result * ECG-Annotated (09/30/2024) Provider Onbase ECG ORDERABLES Final Result * XR Chest 1 View (09/29/2024 2:09 PM EDT) Only the most recent of2 resultswithin the time period is included. Anatomical Region Laterality Modality Body Radiographic Gillian ging 10/01/2024 10:1 0 AM EDT Impressions 10/01/2024 10:12 AM EDT Impression: 1. Stable cardiomegaly. 2. No active pulmonary process. Telerad YOUNG ([id number]) -------- FINAL REPORT -------- Dictated By: Jhoana Cahse Dictated Date: 10/01/2024 10:10 ET Assigned Physician: Jhoana Chase Reviewed and Electronically Signed By: Jhoana Chase Signed Date: 10/01/2024 10:12 ET Workstation ID: [id number] Transcribed By: Self Edit Transcribed Date: 10/01/2024 [...] 2. No active pulmonary process. Teleenio VIDAL ([id number]) -------- FINAL REPORT -------- Dictated By: Jhoana Chase Dictated Date: 10/01/2024 10:10 ET Assigned Physician: Jhoana Chase Reviewed and Electronically Signed By: Jhoana Chase Signed Date: 10/01/2024 10:12 ET Workstation ID: [id number] Transcribed By: Self Edit Transcribed Date: 10/01/2024 10:10 ET Katelyn VIDAL IMG XR PROCEDURES Final R esult * Lavender tube (09/29/2024 5:58 AM EDT) Only the most recent of2 resultswithin the time period is included. [facility] Extra Tube Hold for add-ons. 10/02/2024 9:01 AM EDT [facility] Comment:Auto resulted. Blood Venous blood specimen / Unknown Venipuncture / Unknown 09/29/2024 5:58 AM EDT 09/29/2024 6:17 AM EDT Yuval Lake MD LAB BLOOD ORDERABLES F inal Result [facility] [address] [place] [address], [place] [phone] * Magnesium (09/29/2024 5:58 AM EDT) Only the most recent of2 resultswithin the time period is included. [facility] Magnesium 2.1 1.9 - 2.6 mg/dL LAB CHEMISTRY METHOD 09/29/2024 7:05 AM EDT [facility] Blood Venous blood specimen / Unknown Venipuncture / Unknown 09/29/2024 5:58 AM EDT 09/29/2024 6:12 AM EDT [facility] LAB BLOOD ORDERABLES Hoa l Result Performing Organization Address City/[facility]/ZIP Co de Phone Number [facility] [address] [place] [address], [place] [phone] * (ABNORMAL) Creatine kinase (09/29/2024 5:58 AM EDT) Only the most recent of3 resultswithin the time period is included. Pathologist [facility] [place] Total CK 1,852(H) 22 - 269 unit/L LAB CHEMISTRY METHOD 09/29/2024 7:24 AM EDT [facility] Blood Venous blood specimen / Unknown Venipuncture / Unknown 09/29/2024 5:58 AM EDT 09/29/2024 6:12 AM EDT [facility] LAB BLOOD ORDERABLES Hoa l Result Performing Organization Address [facility] Co de Phone Number [facility] [address] [place] [address], [place] [phone] * (ABNORMAL) Basic metabolic panel (09/29/2024 5:58 AM EDT) Only the most recent of3 resultswithin the time period is included. Sodium 137 133 - 145 mmol/L LAB CHEMISTRY METHOD 09/29/2024 7:05 AM EDT [facility] Potassium 4.3 3.5 - 5.5 mmol/L LAB CHEMISTRY METHOD 09/29/2024 7:05 AM EDT [facility] Chloride 100 96 - 110 mmol/L LAB CHEMISTRY METHOD 09/29/2024 7:05 AM [facility] CO2 33(H) 21 - 32 mmol/L LAB CHEMISTRY METHOD 09/29/2024 7:05 AM [facility] Anion Gap 4 3 - 11 LAB CHEMISTRY METHOD 09/29/2024 7:05 AM [facility] Glucose 101(H) 70 - 100 mg/dL LAB CHEMISTRY METHOD 09/29/2024 7:05 AM [facility] BUN 17 5 - 25 mg/dL LAB CHEMISTRY METHOD 09/29/2024 7:05 AM [facility] Creatinine 0.76 0.50 - 1.10 mg/dL LAB CHEMISTRY METHOD 09/29/2024 7:05 AM [facility] eGFR 83 >=60 mL/min/1. 73m2 LAB CHEMISTRY METHOD 09/29/2024 7:05 AM [facility] Comment:Calculation based on the Chronic Kidney Disease Epidemiology Collaboration (CKD-EPI) equation refit without adjustment for race. BUN/Creatinine Ratio 22.4 LAB CHEMISTRY METHOD 09/29/2024 7:05 AM [facility] Calcium 9.2 8.5 - 10.5 mg/dL LAB CHEMISTRY METHOD 09/29/2024 7:05 AM [facility] Blood Venous blood specimen / Unknown Venipuncture / Unknown 09/29/2024 5:58 AM EDT 09/29/2024 6:12 AM EDT us Katelyn VIDAL LAB BLOOD ORDERABLES Hoa l Result [facility] [address] [place] [address], * XR Hip 1 View Left (09/28/2024 [...] Signed Date: 09/28/2024 12:51 ET Workstation ID: [id number] Transcribed By: Self Edit Transcribed Date: 09/28/2024 12:48 ET Narrative 09/28/2024 12:51 PM EDT XR HIP 1 VIEW LEFT INDICATION: left Hip pain TECHNIQUE: XR HIP 1 VIEW LEFT COMPARISON: No priors available. Procedure Note nAkit Bauer MD - 09/28/2024 XR HIP 1 [...] Signed Date: 09/28/2024 12:51 ET Workstation ID: [id number] Transcribed By: Self Edit Transcribed Date: 09/28/2024 12:48 ET Katelyn VIDAL IMG XR PROCEDURES Final R esult * Phosphorus (09/28/2024 6:01 AM EDT) [facility] Phosphorus 3.1 2.5 - 4.5 mg/dL LAB CHEMISTRY METHOD 09/28/2024 7:56 AM EDT [facility] Blood Venous blood specimen / Unknown Venipuncture / Unknown 09/28/2024 6:01 AM EDT 09/28/2024 6:24 AM EDT Katelyn VIDAL LAB BLOOD ORDERABLES Hoa chavez Result [facility] [address] [place] [address], * (ABNORMAL) Comprehensive metabolic panel (09/28/2024 6:01 AM EDT) Sodium 135 133 - 145 mmol/L LAB CHEMISTRY METHOD 09/28/2024 7:56 AM [facility] Potassium 3.6 3.5 - 5.5 mmol/L LAB CHEMISTRY METHOD 09/28/2024 7:56 AM [facility] Chloride 97 96 - 110 mmol/L LAB CHEMISTRY METHOD 09/28/2024 7:56 AM [facility] CO2 32 21 - 32 mmol/L LAB CHEMISTRY METHOD 09/28/2024 7:56 AM [facility] Anion Gap 6 3 - 11 LAB CHEMISTRY METHOD 09/28/2024 7:56 AM [facility] Glucose 98 70 - 100 mg/dL LAB CHEMISTRY METHOD 09/28/2024 7:56 AM [facility] BUN 17 5 - 25 mg/dL LAB CHEMISTRY METHOD 09/28/2024 7:56 AM [facility] Creatinine 0.69 0.50 - 1.10 mg/dL LAB CHEMISTRY METHOD 09/28/2024 7:56 AM [facility] eGFR 92 >=60 mL/min/1. 73m2 LAB CHEMISTRY METHOD 09/28/2024 7:56 AM [facility] Comment:Calculation based on the Chronic Kidney Disease Epidemiology Collaboration (CKD-EPI) equation refit without adjustment for race. BUN/Creatinine Ratio 24.6 LAB CHEMISTRY METHOD 09/28/2024 7:56 AM [facility] Calcium 9.4 8.5 - 10.5 mg/dL LAB CHEMISTRY METHOD 09/28/2024 7:56 AM EDT [facility] AST (SGOT) 77(H) 10 - 42 unit/L LAB CHEMISTRY METHOD 09/28/2024 7:56 AM T [facility] ALT (SGPT) 30 10 - 60 unit/L LAB CHEMISTRY METHOD 09/28/2024 7:56 AM [facility] Alkaline Phosphatase 69 42 - 121 unit/L LAB CHEMISTRY METHOD 09/28/2024 7:56 AM T [facility] Total Protein 6.0 6.0 - 8.0 g/dL LAB CHEMISTRY METHOD 09/28/2024 7:56 AM [facility] Albumin 3.4 3.2 - 5.0 g/dL LAB CHEMISTRY METHOD 09/28/2024 7:56 AM [facility] Total Bilirubin 0.5 0.0 - 1.4 mg/dL LAB CHEMISTRY METHOD 09/28/2024 7:56 AM [facility] Blood Venous blood specimen / Unknown Venipuncture / Unknown 09/28/2024 6:01 AM EDT 09/28/2024 6:24 AM EDT Katelyn VIDAL LAB BLOOD ORDERABLES Hoa l Result [facility] [address] [place] [address], * (ABNORMAL) Drug abuse screen 8a panel, urine (09/27/2024 4:23 PM EDT) Amphetamine Screen, Ur Negative Negative LAB CHEMISTRY METHOD 7:18 PM EDT [facility] Comment:Certain OTC medicati ons containing ephedrine, phenylephrine, pseudoephedrine and phenylpropanolamine can cause false positive results. Barbiturate Screen, Ur Negative Negative LAB CHEMISTRY METHOD 7:18 PM EDT [facility] Benzodiazepine Screen, Ur Negative Negative LAB CHEMISTRY METHOD 5 7:18 PM EDT [facility] Cocaine Screen, Ur Negative Negative LAB CHEMISTRY METHOD 5 7:18 PM EDT [facility] Opiate Screen, Ur Positive(A ) Negative LAB CHEMISTRY METHOD 5 7:18 PM EDT [facility] Cannabinoid (THC) Screen, Ur Negative Negative LAB CHEMISTRY METHOD 5 7:18 PM EDT [facility] Comment:Specimens from patie nts taking pantoprazole sodium (Protonix) have been shown to produce false positive results. Oxycodone Screen, Ur Negative Negative LAB CHEMISTRY METHOD 5 7:18 PM EDT [facility] Fentanyl, Ur Negative Negative LAB CHEMISTRY METHOD 5 7:18 PM EDT [facility] Urine Urine specimen obtained by clean catch procedure / Unknown Non-blood Collection / Unknown 09/27/2024 4:23 PM EDT 09/27/2024 6:30 PM EDT Narrative [facility] - 09/27/2024 7:18 PM EDT [...] VIDAL LAB URINE ORDERABLES Hoa chavez Result [facility] [address] [place] [address], * (ABNORMAL) Aldolase (09/27/2024 1:41 PM EDT) Aldolase 20.6(H) 1.2 - 7.6 U/L 10/03/2024 9:54 AM EDT [facility] Comment: Test performed at [facility], [address], [place] [address] Alisha Jesus MD, PhD - Adult Probation Officer Blood Venous blood specimen / Unknown Venipuncture / Unknown 09/27/2024 1:41 PM EDT 09/27/2024 2:09 PM EDT us Katelyn Potts PA LAB BLOOD ORDERABLES Hoa l Result [facility] [address] [place] [address] * (ABNORMAL) TRANSTHORACIC ECHOCARDIOGRAM (TTE) COMPLETE (09/27/2024 1:21 PM EDT) Left Atrium Minor [place] 5.3 cm CV PACS Left Atrium Major [place] 5.3 cm CV PACS LA Area Sys [...] Volume 64 mL CV PACS MV Deceleration Iron 4.0 m/s2 CV PACS E Wave Deceleration [...] 2D Volume Index 23 mL/m2 CV PACS IVRGIL Index (VTI) 1.45 cm2/m2 CV PACS VIRGIL [...] LAB CHEMISTRY METHOD 09/27/2024 11:02 AM EDT [facility] ([facility]) [facility] Blood Venous blood specimen / Unknown Venipuncture / Unknown 09/27/2024 10:20 AM EDT 09/27/2024 10:26 AM EDT Narrative [facility] - 09/27/2024 11:02 AM EDT High levels of biotin in samples may falsely decrease hsTroponin values. Use caution when interpreting hsTroponin results in patients taking biotin who exhibit renal impairment (eGFR <60) or in patients taking more than 20 mg/day of biotin. Katelyn VIDAL LAB BLOOD ORDERABLES Hoa chavez Result [facility] [address] [place] [address], [place] [phone] * (ABNORMAL) Lipid panel with reflex to direct LDL (09/27/2024 10:20 AM EDT) Only the most recent of2 resultswithin the time period is included. Cholesterol 234(H) 0 - 200 mg/dL LAB CHEMISTRY METHOD 09/27/2024 12:46 PM EDT [facility] Triglycerides 71 0 - 150 mg/dL LAB CHEMISTRY [facility] HDL 79 >=40 mg/dL LAB CHEMISTRY METHOD 09/27/2024 12:46 PM [facility] LDL Calculated 141(H) 0 - 100 mg/dL LAB CHEMISTRY METHOD 09/27/2024 12:[facility] VLDL Cholesterol Koby 14.2 mg/dL LAB CHEMISTRY METHOD 09/27/2024 12:46 PM [facility] Non HDL Chol. (LDL+VLDL) 155(H) <145 mg/dL LAB CHEMISTRY METHOD 09/27/2024 12:46 [facility] Chol/HDL Ratio 3.0 0.0 - 4.4 LAB CHEMISTRY METHOD 09/27/2024 12:46 PM [facility] Blood Venous blood specimen / Unknown Venipuncture / Unknown 09/27/2024 10:20 AM EDT 09/27/2024 10:25 AM EDT Katelyn MeaghandarshanKieran [place] LAB BLOOD ORDERABLES Hoa l Result [facility] [address] [place] [address], [place] [phone] * Sedimentation rate (09/27/2024 10:20 AM EDT) Sed Rate 23 0 - 30 mm/hr LAB HEMETOLOGY METHOD 09/27/2024 10:39 AM EDT [facility] Blood Venous blood specimen / Unknown Venipuncture / Unknown 09/27/2024 10:20 AM EDT 09/27/2024 10:25 AM EDT Simbagloria Katlyn [place] LAB BLOOD ORDERABLES Hoa l Result Performing Organization Address [facility]/ZIP Co de Phone Number [facility] [address] [place] [address], * C reactive protein, high sensitivity (09/27/2024 10:20 AM EDT) CRP, High Sensitivity 21.90 mg/L LAB CHEMISTRY METHOD 09/27/2024 11:35 AM EDT [facility] Comment: Cardio CRP Relative Risk [...] MD LAB BLOOD ORDERABLES Final Resul t [facility] [address] [place] [address], * (ABNORMAL) Lipase (09/27/2024 10:20 AM EDT) Pathologist [facility] Lipase 12(L) 13 - 75 unit/L LAB CHEMISTRY METHOD 09/27/2024 10:57 AM EDT [facility] Blood Venous blood specimen / Unknown Venipuncture / Unknown 09/27/2024 10:20 AM EDT 09/27/2024 10:25 AM EDT Katelyn VIDAL LAB BLOOD ORDERABLES Hoa l Result Performing Organization Address City/[facility]/ZIP Co de Phone Number [facility] [address] [place] [address], * (ABNORMAL) Hepatic function panel (09/27/2024 10:20 AM EDT) Pathologist [facility] Total Protein 6.8 6.0 - 8.0 g/dL LAB CHEMISTRY METHOD 09/27/2024 10:57 AM EDT [facility] Albumin 3.8 3.2 - 5.0 g/dL LAB CHEMISTRY METHOD 09/27/2024 10:57 AM EDT [facility] Total Bilirubin 0.5 0.0 - 1.4 mg/dL LAB CHEMISTRY METHOD 09/27/2024 10:57 AM EDT [facility] Bilirubin, Direct 0.1 0.0 - 0.3 mg/dL LAB CHEMISTRY METHOD 09/27/2024 10:57 AM EDT [facility] Bilirubin, Indirect 0.4 0.0 - 1.1 mg/dL LAB CHEMISTRY METHOD 09/27/2024 10:57 AM EDT [facility] ALT (SGPT) 32 10 - 60 unit/L LAB CHEMISTRY METHOD 09/27/2024 10:57 AM EDT [facility] AST (SGOT) 86(H) 10 - 42 unit/L LAB CHEMISTRY METHOD 09/27/2024 10:57 AM EDT [facility] Alkaline Phosphatase 78 42 - 121 unit/L LAB CHEMISTRY METHOD 09/27/2024 10:57 AM EDT [facility] Blood Venous blood specimen / Unknown Venipuncture / Unknown 09/27/2024 10:20 AM EDT 09/27/2024 10:25 AM EDT Katelyn VIDAL LAB BLOOD ORDERABLES Hoa l Result Performing Organization Address City/[facility]/ZIP Co de Phone Number [facility] [address] [place] [address], [place] [phone] * ECG 12 lead (09/27/2024 10:00 AM EDT) Only the most recent of2 resultswithin the time period is included. Ventricular Rate ECG 66 BPM GEMUSE Atrial Rate 66 BPM GEMUSE P-R Interval 146 ms GEMUSE QRS Duration 86 ms GEMUSE Q-T Interval 392 ms GEMUSE QTc 410 ms GEMUSE P Wave [place] 47 degrees GEMUSE R [place] -6 degrees GEMUSE T [place] 19 degrees GEMUSE ECG Interpretation Normal sinus rhythm Normal ECG When compared with ECG of 26-SEP-2024 11:50, No significant change was found Confirmed by SARITA DIAL ([id number]) on 09/28/2024 2:47:33 PM GEMUSE 09/27/2024 10:0 0 AM EDT 09/28/2024 2:47 PM EDT Katelyn VIDAL ECG ORDERABLES Final Res ult GEMUSE * SST tube (09/27/2024 8:11 AM EDT) Extra Tube Hold for add-ons. 09/27/2024 10:01 AM EDT [facility] Comment:Auto resulted. Blood Venous blood specimen / Unknown 09/27/2024 8:11 AM EDT 09/27/2024 8:17 AM EDT us Yuval Lake MD LAB BLOOD ORDERABLES F inal Result Performing Organization Address [facility]/ZIP Co de Phone Number [facility] [address] [place] [address], [place] [phone] * JAIME IFA with titer and pattern (09/27/2024 8:11 AM EDT) [facility] JAIME Negative Negative 09/27/2024 2:53 PM EDT [facility] Blood Venous blood specimen / Unknown 09/27/2024 8:11 AM EDT 09/27/2024 8:17 AM EDT Katelyn VIDAL LAB BLOOD ORDERABLES Hoa l Result Performing Organization Address [facility] Co de Phone Number [facility] [address] [place] [address], [place] [phone] * (ABNORMAL) B-type natriuretic peptide (09/27/2024 8:11 AM EDT) [facility] BNP 120(H) <=100 pcg/mL LAB CHEMISTRY METHOD 09/27/2024 8:59 AM EDT [facility] Blood Venous blood specimen / Unknown Venipuncture / Unknown 09/27/2024 8:11 AM EDT 09/27/2024 8:16 AM EDT Katelyn VIDAL LAB BLOOD ORDERABLES Hoa l Result Performing Organization Address City/[facility]/ZIP Co de Phone Number [facility] [address] [place] [address], [place] [phone] * (ABNORMAL) Creatine kinase and CKMB (09/27/2024 8:11 AM EDT) [facility] Total CK 3,151(H) 22 - 269 unit/L LAB CHEMISTRY METHOD 09/27/2024 9:49 AM EDT [facility] Comment:Results verified by repeat testing CK-MB 6.1(H) 1.0 - 3.6 ng/mL LAB CHEMISTRY METHOD 09/27/2024 9:49 AM EDT [facility] CK-MB Index 0.0 0.0 - 5.0 LAB CHEMISTRY METHOD 09/27/2024 9:49 AM EDT [facility] Blood Venous blood specimen / Unknown 09/27/2024 8:11 AM EDT 09/27/2024 8:17 AM EDT Katelyn Potts [place] LAB BLOOD ORDERABLES Hoa chavez Result [facility] [address] [place] [address], [place] [phone] * (ABNORMAL) Complete blood count (09/27/2024 6:19 AM EDT) [facility] WBC 7.8 4.8 - 10.8 K/mcL LAB HEMETOLOGY METHOD 09/27/2024 6:50 AM EDT [facility] RBC 3.80 3.80 - 4.80 M/mcL LAB HEMETOLOGY METHOD 09/27/2024 6:50 AM EDT [facility] Hemoglobin 10.4(L) 11.5 - 16.0 g/dL LAB HEMETOLOGY METHOD 09/27/2024 6:50 AM EDT [facility] Hematocrit 33.4(L) 35.0 - 47.0 % LAB HEMETOLOGY METHOD 09/27/2024 6:50 AM EDT [facility] MCV 87.4 79.0 - 98.0 FL LAB HEMETOLOGY METHOD 09/27/2024 6:50 AM EDT [facility] MCH 27.2 27.0 - 32.0 pcg LAB HEMETOLOGY METHOD 09/27/2024 6:50 AM EDT [facility] MCHC 31.1(L) 32.0 - 37.0 g/dL LAB HEMETOLOGY METHOD 09/27/2024 6:50 AM EDT [facility] RDW 13.9 11.0 - 15.0 % LAB HEMETOLOGY METHOD 09/27/2024 6:50 AM EDT [facility] Platelets 208 130 - 400 K/mcL LAB HEMETOLOGY METHOD 09/27/2024 6:50 AM EDT [facility] MPV 9.9 7.0 - 11.0 FL LAB HEMETOLOGY METHOD 09/27/2024 6:50 AM EDT [facility] NRBC 0.0 <1.0 % LAB HEMETOLOGY METHOD 09/27/2024 6:50 AM EDT [facility] NRBC Absolute 0.00 <0.10 K/mcL LAB HEMETOLOGY METHOD 09/27/2024 6:50 AM T [facility] Blood Venous blood specimen / Unknown Venipuncture / Unknown 09/27/2024 6:19 AM EDT 09/27/2024 6:29 AM EDT us Idris Chawla MD LAB BLOOD ORDERABLES Final Res ult [facility] [address] [place] [address], * (ABNORMAL) Urinalysis with reflex microscopic and culture (09/26/2024 9:44 PM EDT) Specific [place] Urine 1.019 1.003 - 1.030 LAB URINALYSIS - AUTOMATED METHOD 09/26/2024 9:57 PM [facility] pH, Urine 5.5 5.0 - 8.0 pH LAB URINALYSIS - AUTOMATED METHOD 09/26/2024 9:57 PM [facility] Leukocytes, Urine Small(A) Negative LAB URINALYSIS - AUTOMATED METHOD 09/26/2024 9:57 PM [facility] Nitrite, Urine Negative Negative LAB URINALYSIS - AUTOMATED METHOD 09/26/2024 9:57 PM [facility] Protein, Urine Negative <=Trace mg/dL LAB URINALYSIS - AUTOMATED METHOD 09/26/2024 9:57 PM [facility] Glucose, Urine Negative Negative mg/dL LAB URINALYSIS - AUTOMATED METHOD 09/26/2024 9:57 PM [facility] Ketones, Urine Trace(A) Negative mg/dL LAB URINALYSIS - AUTOMATED METHOD 09/26/2024 9:57 PM [facility] Urobilinogen, Urine 0.2 0.2 - 1.0 mg/dL LAB URINALYSIS - AUTOMATED METHOD 09/26/2024 9:57 PM [facility] Bilirubin, Urine Negative Negative LAB URINALYSIS - AUTOMATED METHOD 09/26/2024 9:57 PM [facility] Blood, Urine Negative Negative LAB URINALYSIS - AUTOMATED METHOD 09/26/2024 9:57 PM [facility] RBC, Urine 2.4 0 - 4 /HPF LAB URINALYSIS - AUTOMATED METHOD 09/26/2024 9:57 PM [facility] WBC, Urine 3.0 0 - 4 /HPF LAB URINALYSIS - AUTOMATED METHOD 09/26/2024 9:57 PM [facility] Squamous Epithelial, Urine 11 0 - 60 /LPF LAB URINALYSIS - AUTOMATED METHOD 09/26/2024 9:57 PM EDT [facility] Bacteria, Urine Negative Negative /HPF LAB URINALYSIS - AUTOMATED METHOD 09/26/2024 9:57 PM EDT [facility] Hyaline Casts, Urine 1.2 0 - 3 /LPF LAB URINALYSIS - AUTOMATED METHOD 09/26/2024 9:57 PM EDT [facility] Urine Urine specimen obtained by clean catch procedure / Unknown Non-blood Collection / Unknown 09/26/2024 9:44 PM EDT 09/26/2024 9:49 PM EDT Melissa VIDAL LAB URINE ORDERABLES Final Resul t Performing Organization Address [facility] [place]/[facility]/ZIP Co de Phone Number [facility] [address] [place] [address], [place] [phone] * Arcos urine culture tube (09/26/2024 9:44 PM EDT) Extra Tube Hold for add-ons. 09/26/2024 11:01 PM EDT [facility] Comment:Auto resulted. Urine Urine specimen obtained by clean catch procedure / Unknown Non-blood Collection / Unknown 09/26/2024 9:44 PM EDT 09/26/2024 9:49 PM EDT Melissa VIDAL LAB URINE ORDERABLES Final Resul t [facility] [address] [place] [address], [place] [phone] * Culture urine (09/26/2024 9:44 PM EDT) Culture, Urine 10,000-49,000 CFU/mL Mixed bacterial morphotypes present suggestive of possible contamination during collection. Suggest appropriate recollection if clinically indicated. 09/27/2024 1:18 PM EDT [facility] Urine Urine specimen obtained by clean catch procedure / Unknown Non-blood Collection / Unknown 09/26/2024 9:44 PM EDT 09/26/2024 9:57 PM EDT us Melissa VIDAL LAB MICROBIOLOGY - GENERAL ORDER RAFIQ Final Result [facility] ([facility]) [facility] [address] [place] [address], * MR Brain wo Contrast (09/26/2024 6:19 [...] LAB HEMETOLOGY METHOD 09/26/2024 12:27 PM EDT [facility] RBC 4.00 3.80 - 4.80 M/mcL LAB [facility] Hemoglobin 11.0(L) 11.5 - 16.0 g/dL LAB HEMETOLOGY METHOD 09/[facility]2024 12[facility] Hematocrit 36.4 35.0 - 47.0 % LAB HEMETOLOGY METHOD 09/26/2024 12:[facility] MCV 90.1 79.0 - 98.0 FL LAB HEMETOLOGY METHOD 09/26/2024 12:27 PM [facility] MCH 27.2 27.0 - 32.0 pcg LAB HEMETOLOGY METHOD 09/26/2024 12:27 PM [facility] MCHC 30.2(L) 32.0 - 37.0 g/dL LAB HEMETOLOGY METHOD 09/26/2024 12:27 PM [facility] RDW 13.6 11.0 - 15.0 % LAB HEMETOLOGY METHOD 09/26/2024 12:27 PM [facility] Platelets 218 130 - 400 K/mcL LAB HEMETOLOGY METHOD 09/26/2024 12:27 PM [facility] MPV 9.4 7.0 - 11.0 FL LAB HEMETOLOGY METHOD 09/26/2024 12:27 PM [facility] NRBC 0.0 <1.0 % LAB HEMETOLOGY METHOD 09/26/2024 12:27 PM [facility] NRBC Absolute 0.00 <0.10 K/mcL LAB HEMETOLOGY METHOD 09/26/2024 12:27 PM [facility] Neutrophils Relative 86.7 % LAB HEMETOLOGY METHOD 09/26/2024 12:27 PM [facility] Lymphocytes Relative 6.4 % LAB HEMETOLOGY METHOD 09/26/2024 12:27 PM [facility] Monocytes Relative 6.1 % LAB HEMETOLOGY METHOD 09/26/2024 12:27 PM [facility] Eosinophils Relative 0.1 % LAB HEMETOLOGY METHOD 09/26/2024 12:27 PM [facility] Basophils Relative 0.1 % LAB HEMETOLOGY METHOD 09/26/2024 12:27 PM [facility] Immature Granulocytes Relative 0.6 % LAB HEMETOLOGY METHOD 09/26/2024 12:27 PM [facility] Neutrophils Absolute 7.44(H) 1.50 - 7.00 K/mcL LAB HEMETOLOGY METHOD 09/26/2024 12:27 PM [facility] Lymphocytes Absolute 0.55(L) 1.00 - 5.00 K/mcL LAB HEMETOLOGY METHOD 09/26/2024 12:27 PM [facility] Monocytes Absolute 0.52 0.20 - 1.00 K/mcL LAB HEMETOLOGY METHOD 09/26/2024 12:27 PM [facility] Eosinophils Absolute 0.01 0.00 - 0.50 K/mcL LAB HEMETOLOGY METHOD 09/26/2024 12:27 PM EDT [facility] Basophils Absolute 0.01 0.00 - 0.20 K/[facility] HEMETOLOGY METHOD 09/26/2024 12:27 PM EDT [facility] Immature Granulocytes Absolute 0.05(H) 0.00 - 0.03 K/[facility] HEMETOLOGY METHOD 09/26/2024 12:27 PM EDT [facility] Blood Venous blood specimen / Unknown Venipuncture / Unknown 09/26/2024 12:08 PM EDT 09/26/2024 12:16 PM EDT Maricarmen Hatfield DO LAB BLOOD ORDERABLES Final Result Performing Organization Address [facility] [place]/[facility]/ZIP Co de Phone Number [facility] [address] [place] [address], [place] [phone] * Activated partial thromboplastin time (09/26/2024 12:08 PM EDT) aPTT 29.7 24.1 - 39.3 sec LAB COAGULATION METHOD 09/26/2024 12:29 PM EDT [facility] Blood Venous blood specimen / Unknown Venipuncture / Unknown 09/26/2024 12:08 PM EDT 09/26/2024 12:16 PM EDT Maricarmen Hatfield DO LAB BLOOD ORDERABLES Final Result Performing Organization Address City/[facility]/ZIP Co de Phone Number [facility] [address] [place] [address], [place] [phone] * Prothrombin time with INR (09/26/2024 12:08 PM EDT) Protime 11.8 10.6 - 13.9 sec LAB COAGULATION METHOD 09/26/2024 12:29 PM EDT [facility] INR 0.9 LAB COAGULATION METHOD 09/26/2024 12:29 PM EDT [facility] Blood Venous blood specimen / Unknown Venipuncture / Unknown 09/26/2024 12:08 PM EDT 09/26/2024 12:16 PM EDT Maricarmen Hatfield DO LAB BLOOD ORDERABLES Final Result Performing Organization Address [facility] [place]/[facility] Co de Phone Number [facility] [address] [place] [address], [place] [phone] * Thyroid stimulating hormone (09/26/2024 12:08 PM EDT) TSH 1.29 0.40 - 4.00 mcIU/mL LAB CHEMISTRY METHOD 09/26/2024 6:39 PM EDT [facility] Blood Venous blood specimen / Unknown Venipuncture / Unknown 09/26/2024 12:08 PM EDT 09/26/2024 12:16 PM EDT us Melissa VIDAL LAB BLOOD ORDERABLES Final Resul t Performing Organization Address [facility] de Phone Number [facility] [address] [place] [address], [place] [phone] * Thyroxine free (09/26/2024 12:08 PM EDT) Free T4 1.14 0.70 - 1.80 ng/dL LAB CHEMISTRY METHOD 09/26/2024 6:39 PM EDT [facility] Blood Venous blood specimen / Unknown Venipuncture / Unknown 09/26/2024 12:08 PM EDT 09/26/2024 12:16 PM EDT us Melissa VIDAL LAB BLOOD ORDERABLES Final Resul t Performing Organization Address City/[facility]/ZIP Co de Phone Number [facility] [address] [place] [address], [place] [phone] * (ABNORMAL) POCT Glucose, blood (09/26/2024 11:46 AM EDT) Glucose POCT 126(H) 70 - 100 mg/dL 09/26/2024 11:47 AM EDT [facility] ([facility] Blood Capillary blood specimen / Unknown 09/26/2024 11:46 AM EDT 09/26/2024 11:48 AM EDT us Maricarmen Hatfield DO LAB POINT OF CARE T EST DOCKED DEVICE UNSOLICITED RESULTS Final Result [facility] [address] [place] [address], [place] [phone] * CT Angio Head/Neck Stroke wo and/or w Contrast (09/26/2024 11:24 AM EDT) Anatomical Region Laterality Modality Head and Neck Computed Tomogra phy 09/26/2024 11:5 7 AM EDT Impressions 09/26/2024 12:06 PM EDT 1. No large vessel occlusion, intracranial aneurysm, dissection, or hemodynamically significant cervical carotid stenosis. 2. 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 [employer] [place] ([id number]) -------- FINAL REPORT -------- Dictated By: Jhoana Chase Dictated Date: 09/26/2024 11:57 ET Assigned Physician: Jhoana Chase Reviewed and Electronically Signed By: Jhoana Chase Signed Date: 09/26/2024 12:06 ET Workstation ID: [id number] Transcribed By: Self Edit Transcribed Date: 09/26/2024 [...] brain was also performed. DLP: 2522.84 mGy/cm GE Pomogatelpeed VCT Iterative reconstruction technique FINDINGS: CTA: INTRACRANIAL VASCULATURE: The bilateral A1 and M1 segments are widely patent. The more distal branches of the anterior and middle cerebral arteries also appear patent. The basilar artery is widely patent and terminates in the bilateral aged or disabled carer. The right ATMOSPHERIC SCIENCES PROFESSOR is partially supplied by the right internal [...] brain was also performed. DLP: 2522.84 mGy/cm GE Pomogatelpeed VCT Iterative reconstruction technique FINDINGS: CTA: INTRACRANIAL VASCULATURE: The bilateral A1 and M1 segments are widelypatent. The more distal branches of the anterior and middle cerebralarteries also appear patent. The basilar artery is widely patent andterminates in the bilateral aged or disabled carer. The right ATMOSPHERIC SCIENCES PROFESSOR is partially supplied bythe right internal carotid [...] measuring 3.4 cm in diameter. [employer] [place] ([id number]) -------- FINAL REPORT -------- Dictated By: Jhoana Chase Dictated Date: 09/26/2024 11:57 ET Assigned Physician: Jhoana Chase Reviewed and Electronically Signed By: Jhoana Chase Signed Date: 09/26/2024 12:06 ET Workstation ID: [id number] Transcribed By: Self Edit Transcribed Date: 09/26/2024 11:57 ET Maricarmen Hatfield DO IMG CT PROCEDURES [...] of interpretation on 09/26/24 by secure message ([employer]). [employer] YOUNG ([id number]) A Critical Document Only message has been documented for the office of MARICARMEN HATFIELD in the [employer] system on 09/26/2024 11:45 AM, Message ID [id number]. -------- FINAL REPORT -------- Dictated By: Jhoana Chase Dictated Date: 09/26/2024 11:41 ET Assigned Physician: Jhoana Chase Reviewed and Electronically Signed By: Jhoana Chase Signed Date: 09/26/2024 11:45 ET Workstation ID: [id number] Transcribed By: Self Edit Transcribed Date: 09/26/2024 11:41 ET Narrative 09/26/2024 11:45 AM EDT History: Stroke. Severe headache. Nausea. Altered mental status. Comparison: 09/16/16 Technique: Contiguous axial images were obtained at 2.5 mm intervals through the posterior fossa and at 5 mm intervals through the remainder of the brain without intravenous contrast. DLP: 808.85 mGy/cm GE QM Powerpeed VCT Iterative reconstruction technique Findings: The ventricular [...] The calvarium is intact. Procedure Note Jhoana hCase MD - 09/26/2024 History: Stroke. Severe headache. Nausea. Altered mental status. Comparison: 09/16/16 Technique: Contiguous axial images were obtained at 2.5 mm intervalsthrough the posterior fossa and at 5 mm intervals through the remainder ofthe brain without intravenous contrast. DLP: 808.85 mGy/cm GE QM Powerpeed VCT Iterative reconstruction technique Findings: The ventricular [...] time ofinterpretation on 09/26/24 by secure message ([employer]). [employer] YOUNG ([id number]) A Critical Document Only message has been documented for the office ofMARICARMEN HATFIELD in the [employer] system on09/26/2024 11:45 AM, Message ID [id number]. -------- FINAL REPORT -------- Dictated By: Jhoana Chase Dictated Date: 09/26/2024 11:41 ET Assigned Physician: Jhoana Chase Reviewed and Electronically Signed By: Jhoana Chase Signed Date: 09/26/2024 11:45 ET Workstation ID: [id number] Transcribed By: Self Edit Transcribed Date: 09/26/2024 [...] cancer risk category Low (<15%) us Emily Burerll MD IMG XR PROCEDURES Final Resu lt * RILEY DEXA AXIAL SKELETON (06/22/2017 1:56 PM EDT) Anatomical Region Laterality Modality Mammography 06/22/2017 7:08 AM EDT Narrative 06/22/2017 1:56 PM EDT [facility] Diagnostic Imaging Department [address] [place] [address] Patient: EDUARDO ENGEL D.O.B./Age/Sex: 1950 - 66 - F Unit#: [id number] Location/Status: SPDIMAM/REG CLI Mnem[facility] Ordering Physician: LITA TORRES MD [facility] Dexa Axial Skeleton - 06/22/17 - 30 [facility] Dexa Axial Skeleton INDICATION: POST MENOPAUSE Technique: [...] placing the patient at risk for fracture. [id number] A report detailing these results has been enclosed. Dictating Physician: BEN GASTON MD Electronically Signed by: BEN GASTON MD Dic Date/Time: 06/22/171353 Sign date/Time: 06/22/17 135 Procedure Note Ben Gaston MD - 03/31/2022 [facility] Diagnostic Imaging Department [address] [place] [address] Patient: EDUARDO ENGEL D.O.B./Age/Sex: 1950 - 66 -F Unit#: [id number] Location/Status: SPDIMAM/REG CLI Mnemonic[facility] Ordering Physician: LITA TORRES MD [facility] Dexa Axial Skeleton - 06/22/17 - 729 [facility] Dexa Axial Skeleton INDICATION: POST MENOPAUSE Technique: Bone densitometry was performed utilizing dual energy x-ray absorptiometry (DEXA). The lumbar spine is evaluated in the AP projectionfrom L1 through L4. The proximal femora are evaluated in the AP projection bilaterally. [facility] Findings: AP spine: Bone mineral density: 0.983 gm/cm2 T-score: -1.5 Femoral total (mean, bilateral): Bone mineral density: 0.704 gm/cm2 T-score: -2.4 Left femoral neck: Bone mineral density: 0.618 gm/cm2 T-score: -3.0 IMPRESSION: Findings suggesting osteoporosis, placing the patient at risk forfracture. [id number] A report detailing these results has been enclosed. Dictating Physician: BEN AGSTON MD Electronically Signed by: BEN GASTON MD Dic Date/Time: 06/22/17 1354 Sign date/Time: 06/22/17 1356 Liat Torres MD IMG BI PROCEDURES Final Resu lt from Last 3 Months or Most Recently Relevant to Health Maintenance Insurance MEDICARE Member Subscriber Plan / Payer (Ef fective 2024-Present) Name:EDUARDO MCKENZIE Relation to Subscriber:Self Name:Mckenzie Eduardo Nagy Payer ID:[id number] Group ID:[id number] Type:Not on file Address: [place] [address] [place] [id number] Advance Directives * Full Code - Default [...] currently active code status orders. Care Teams Field Auditor Relationship Specialty Start Date End Date Addi Holland NP [address], [place] PCP - General Family Medicine 03/04/21
--- OUTSIDE RECORDS SUMMARY | 2024-11-09 06:34 | XMS_ITS | Encounter Summary ---
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 Not on aaron e 02/17/2023 Are you concerned about learning? Not on file 02/17/2023 No 02/17/2023 No 02/17/2023 Digital Access Answer Date Recorded No 02/17/2023 No 02/17/2023 Reliable internet access at home? Not on file 02/17/2023 Device with a working camera? Not on file Comments Unknown Sex and Gender Information Value Date Recorded Sex Assigned at Not on file Legal Sex Female 2:20 PM EST Gender Identity Not on file Sexual Orientation Not on file documented as of this encounter Plan of Treatment Not on file documented as of this encounter Visit Diagnoses Not on filedocumented in this encounter Care Teams Pmo Project Manager Relationship Specialty Start Date End Date Addi Holland NP [address] [place] [address] [email or web address] PCP - General Nurse Practitioner 02/17/23 documented as of this encounter Additional Source Comments The information contained in this document represents components of the legal health record. It is not the complete legal health record.[facility]
== END 2024-11-09 06:32 | disposition home or self-care (01) ==
LOC: CF 06:31
PROVIDERS: Visit Provider Internal Medicine
DX: M47.812 Spondylosis without myelopathy or radiculopathy, cervical region (principal)
CPT/HCPCS: 64490; 64491; J2003; J2795; Q9967

== ENCOUNTER 2024-11-09 13:10 | Outpatient (AMB) | payer OTHER, SELFPAY ==
[2024-11-09 13:57] VITALS: BP 130/91; PULSE 69; RESP 16; O2SAT 100; BMI 25.8
--- NOTE | 2024-11-09 13:57 | MHC.OFFVIS ---
Vital Signs 11/09/24 13:57 11/09/24 14:27 Height 5 ft 2 in Weight 141 lb BMI 25.8 BP 130/91 H 140/99 H Blood Pressure Location Lt brachial Lt brachial Position Sitting Sitting Respiration 16 16 Pulse 69 74 Pulse Source Pulse Oximeter Pulse Oximeter Pulse Oximetry (%) 100 100 Oxygen Delivery Method Room Air Room Air Intake Visit Reasons: Right Dx C3-C4-C5 MBB/ ativan Allergies tramadol Allergy (Severe, Verified 11/13/24 09:58) Itching HPI HPI Right Dx C3-C4-C5 MBB/ ativan: Details: Patient presents for scheduled procedure. Denies any recent cough, cold, infection, fever or other significant changes in medical history since last office visit. [facility] Medical History Insomnia PONV (postoperative nausea and vomiting) GERD (gastroesophageal reflux disease) Oropharyngeal dysphagia Gastritis Migraines Dyslipidemia Hypothyroidism Osteoporosis Anxiety Essential hypertension Surgical History History of shoulder surgery History of section History of nasal surgery History of surgery History of carpal tunnel surgery History of neck surgery Family History Father Cancer of prostate Mother HTN (hypertension) Maternal Grandmother Stroke Asthma Brother Substance use disorder Social History Household Members: Spouse Caregiver staying overnight: No Housing: Apartment Are you a primary infant caregiver to a significant other at home: Yes (, he 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 has a PUBLIC SAFETY OFFICER) Do you presently have 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 or other home services: No 75 years or older and lives alone: No Alcohol intake: never Patient Tobacco Use Status: Former Tobacco user Tobacco use type: Cigarette e-Cigarette/Vaping Use: Never Used Second Hand Smoke Exposure: No service: No Current occupational status: retired Cognitive needs: No Hearing needs: No Vision needs: No Physical Exam Vital Signs: Last Vital Signs Pulse 74 11/09/24 14:27 Resp 16 11/09/24 14:27 BP 140/99 H 11/09/24 14:27 Pulse Ox 100 11/09/24 14:27 Oxygen Delivery Method Room Air 11/09/24 14:27 BMI result Body Mass Index 25.8 Office Procedures Cervical/Thoracic Facet Inj Details: Diagnostic Cervical Medial Branch Block, Right C3, C4, C5 medial branches After obtaining written consent, pre-procedure blood pressure and pulse were recorded and are in the nursing record for review. The patient was placed in a lateral position. The respective cervical area was prepped with chloraprep and draped in sterile fashion. The skin over the target medial branch nerves was anesthetized with 0.5% lidocaine. A 25 gauge 1.5 inch needle was inserted into the target medial branch nerve under fluoroscopic guidance. No paresthesias were elicited with needle placement and aspiration was negative for blood and CSF. Next, 0.2cc of omnipaque 180 was injected to verify positioning. Next 0.5 ml 0.5% bupivicaine was injected (0.5 cc total per level). The identical procedure was performed at the remaining levels. The skin was cleansed and a sterile bandage was applied. Following the procedure the patient's vital signs were stable. The patient tolerated the procedure well and no complications were encountered. Following the procedure the patient's vital signs were stable. The patient was discharged home in good condition with post-procedural instructions. Time Out: Immediately prior to the procedure, the following was verbally confirmed that there is a signed consent form and that the correct patient, planned procedure, site and side are consistent with documentation and that necessary equipment and/or blood products are available prior to the start of the case. Complications: none EBL: <5 cc 12786 - with Fluoroscopy 34618 - second level, with Fluoroscopy Procedure code (CPT) selection complete Assessment & Plan Assessment & Plan (1) Cervical spondylosis: Code(s): M47.812 - Spondylosis without myelopathy or radiculopathy, cervical region Category: Medical Plan Patient is status post repeat dx C3, C4, C5 MBB. Patient tolerated procedure well and was discharged home in stable condition with discharge instructions. All questions were answered. We will follow-up via telephone or in clinic to assess response to therapy. A follow-up appointment was made during today's visit. Orders: Orders FL guidance in treatment room 11/09/24 M47.812 - Spondylosis without myelopathy or radiculopathy, cervical region Medications: New lorazepam (Ativan) Take 30 minutes prior to arrival to procedure 1 mg PO ONCE 1 tab 0RF anxiety Coding Level of Care Code Procedure Only Diagnoses Cervical spondylosis M47.812 CPT Codes Facet Injection Cervical/Thoracic - CPT: 80844 - with Fluoroscopy ([id number]) Facet Injection Cervical/Thoracic - CPT: 48951 - second level, with Fluoroscopy ([id number])
[2024-11-09 14:27] VITALS: BP 140/99; PULSE 74; RESP 16; O2SAT 100
== END 2024-11-09 14:28 | disposition home or self-care (01) ==
LOC: HO.PMCPRC 13:10
PROVIDERS: Visit Provider Internal Medicine
DX: M47.812 Spondylosis without myelopathy or radiculopathy, cervical region (principal)
CPT/HCPCS: 64490; 64491

== ENCOUNTER 2024-11-13 09:53 | Outpatient (AMB) | payer OTHER, SELFPAY ==
--- OUTSIDE RECORDS SUMMARY | 2024-04-04 04:30 | XMS_ITS ---
Author Organization [facility] Address [address] [place] [address] Care Team Providers Care Low Altitude Air Defense Officer Name Role Phone AUTUMN PADILLA Primary Care Provider REASON FOR VISIT follow up labs + MMSE Encounters Encounter Location Date Provider Diagnosis [facility] [address] [place] [address] 04/04/2024 AUTUMN BEASLEY Plan Of Treatment No Information Progress Notes * JONAH Marie JORGEDO B:1950 (74 yo F)Acc No.[id number]:04/04/2024 Progress Notes Patient: Marie DUVAL Provider: Lawson BEASLEY MD :1950 A ge:73 Y S ex:Female Date:04/04/2024 Phone: Address:[address] [place], [place] [phone] Structured Data:Consent to r eceive voicemail/text messages? : YES Subjective: * Chief Complaints: * 1 . follow up labs + MMSE. * Medical History: Objective: * Vitals: Assessment: Plan: * Treatment: * Billing Information: * Visit Code: * Procedure Codes: * Electronic signature of AUTUMN BEASLEY MD on 11/13/2024 at 10:29 AM EDT Sign off status: Pending * Provider: Lawson BEASLEY MD Date: 06/05/2023 Generated for Deborahi ng/Faxing/eTransmitting on: 0 11/13/2024 10:29 AM EDT
--- NOTE | 2024-11-13 09:56 | MHC.OFFVIS ---
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 Instructions: Resume on 06/19/23. Check your blood pressure every morning as soon as you wake up and send it to Dr. Alberto. Do no take the blood pressure medication if the blood pressure is below 120/70. Wait every day to hear back from Dr. Alberto before you take the medication. csaheopazm-edgfiwqvjsrzj-kwyx 50-300-40 mg (Fioricet) 2 caps PO Q8H PRN [chair lift daily use NS] hospital bed daily lorazepam (Ativan) 1 mg PO ONCE miscellaneous medical supply daily use, ECO-Patch Reusable self adhesive electrodes for TENS FES/NMES ondansetron 4 mg PO Q8H PRN ondansetron 4 mg PO Q8H PRN rizatriptan take 1 tab at onset of headache; if no relief may repeat 1 tab after at least 2 hrs; max = 3 tabs/24 hr PO trazodone 150 mg PO BEDTIME HPI HPI s/p right C3-C4-C5 MBB: Details: History of Present Illness The patient is a 74-year-old female presenting for follow-up after a diagnostic medial branch block at the C3, C4, and C5 levels. She reports significant improvement in neck pain following the procedure, with 100% relief noted. The relief from the block has not yet worn off, indicating a positive response to the intervention. The patient has a history of undergoing radiofrequency ablation at the same cervical levels two years ago, which provided more than two years of pain relief. She is interested in repeating the radiofrequency ablation due to the successful outcome of the previous procedure. Pain Description - Onset: Pain relief noted immediately after the procedure - Quality: Significant improvement with 100% relief - Location: Cervical spine at C3, C4, and C5 levels - Duration: Relief lasting more than two years after previous radiofrequency ablation Results - Diagnostic medial branch block at C3, C4, and C5 levels: 100% relief reported Pain Management - Analgesia: 100% relief from diagnostic medial branch block - Activities of Daily Living: Improved function due to pain relief PFSH Medical History Insomnia PONV (postoperative nausea and vomiting) GERD (gastroesophageal reflux disease) Oropharyngeal dysphagia Gastritis Migraines Dyslipidemia Hypothyroidism Osteoporosis Anxiety Essential hypertension Surgical History History of shoulder surgery History of section History of nasal surgery History of surgery History of carpal tunnel surgery History of neck surgery Family History Father Cancer of prostate Mother HTN (hypertension) Maternal Grandmother Stroke Asthma Brother Substance use disorder Social History Household Members: Spouse Caregiver staying overnight: No Housing: Apartment Are you a primary child care provider to a significant other at home: Yes (, he also has a LOCOMOTIVE SUPERVISOR) Do you presently have 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 or other home services: No 75 years or older and lives alone: No Alcohol intake: never Patient Tobacco Use Status: Former Tobacco user Tobacco use type: Cigarette e-Cigarette/Vaping Use: Never Used Second Hand Smoke Exposure: No service: No Current occupational status: retired Cognitive needs: No Hearing needs: No Vision needs: No Physical Exam Vital Signs: Last Vital Signs Pulse 73 11/13/24 09:57 Resp 16 11/13/24 09:57 BP 129/70 11/13/24 09:57 Pulse Ox 99 11/13/24 09:57 Oxygen Delivery Method Room Air 11/13/24 09:57 BMI result Body Mass Index 25.1 Assessment & Plan Assessment & Plan (1) Cervical spondylosis: Code(s): M47.812 - Spondylosis without myelopathy or radiculopathy, cervical region Category: Medical Plan Plan - Schedule repeat radiofrequency ablation at right C3, C4, and C5 levels pending insurance authorization. - Prescribe Flexeril as requested by the patient. Patient was informed and verbally consented to the use of an ambient scribe for clinic note documentation during this visit. Discussion Notes I discussed with the patient the successful outcome of the previous radiofrequency ablation and the plan to proceed with a repeat procedure at the C3, C4, and C5 levels. We will request insurance authorization before scheduling the procedure. I also confirmed the prescription of Flexeril as per the patient's request. Patient Instructions - Await contact for scheduling the radiofrequency ablation procedure. - Take Flexeril as prescribed. Medications: New cyclobenzaprine 5 mg PO BEDTIME PRN 90 tabs 2RF muscle spasm Coding Level of Care Code Est Pt Level 3 (66481) Diagnoses Cervical spondylosis M47.812
[2024-11-13 09:57] VITALS: BP 129/70; PULSE 73; RESP 16; O2SAT 99; BMI 25.1
--- OUTSIDE RECORDS SUMMARY | 2024-11-13 10:30 | XMS_ITS | Clinical Summary ---
Author Organization [facility] Address [address] [place] [address] Phone Care Team Providers Care Olericulturist Name Role Phone Addi Holland NP Primary [...] - 10/02/2024 11:59 PM EDT Hospital Encounter [facility] Neurodiagnostic [address] [place] [address] Myopathy Discharge Disposition: Home or Self Care 09/26/2024 11:04 AM EDT - 09/29/2024 4:43 PM EDT Hospital Encounter [facility] Urology Unit [address] [place] [address] Maricarmen Hatfield DO [place], Gary [...] TUNNEL REL UPPER GASTROINTESTINAL ENDOSCOPY 08/18/2016 PROCEDURE: CA UPPER GI ENDOSCOPY PERFORMED; COMMENT: Erosive gastritis, [...] care for your loved ones. For example, child care specialist or elderly care for an older [...] result were not included. [facility] [address] [place] [address] Electromyograph Report Date of service: 10/02/24 Patient [...] note were not included. [facility] [address] [place] [address] Electromyograph Report Date of service: 10/02/24 Patient [...] 2. No active pulmonary process. Telerad YOUNG ([id number]) -------- FINAL REPORT -------- Dictated By: Jhoana Chase Dictated Date: 10/01/2024 10:10 ET Assigned Physician: Jhoana Chaes Reviewed and Electronically Signed By: Jhoana Chase Signed Date: 10/01/2024 10:12 ET Workstation ID: [id number] Transcribed By: Self Edit Transcribed Date: 10/01/2024 [...] 2. No active pulmonary process. Teleenio VIDAL ([id number]) -------- FINAL REPORT -------- Dictated By: Jhoana Chase Dictated Date: 10/01/2024 10:10 ET Assigned Physician: Jhoana Chase Reviewed and Electronically Signed By: Jhoana Chase Signed Date: 10/01/2024 10:12 ET Workstation ID: [id number] Transcribed By: Self Edit Transcribed Date: 10/01/2024 10:10 ET Katelyn VIDAL IMG XR PROCEDURES Final R esult * Lavender tube (09/29/2024 5:58 AM EDT) Only the most recent of2 resultswithin the time period is included. [facility] Extra Tube Hold for add-ons. 10/02/2024 9:01 AM EDT [facility] Comment:Auto resulted. Blood Venous blood specimen / Unknown Venipuncture / Unknown 09/29/2024 5:58 AM EDT 09/29/2024 6:17 AM EDT Yuval Lake MD LAB BLOOD ORDERABLES F inal Result [facility] [address] [place] [address], [place] [phone] * Magnesium (09/29/2024 5:58 AM EDT) Only the most recent of2 resultswithin the time period is included. [facility] Magnesium 2.1 1.9 - 2.6 mg/dL LAB CHEMISTRY METHOD 09/29/2024 7:05 AM EDT [facility] Blood Venous blood specimen / Unknown Venipuncture / Unknown 09/29/2024 5:58 AM EDT 09/29/2024 6:12 AM EDT [facility] LAB BLOOD ORDERABLES Hoa l Result Performing Organization Address City/[facility]/ZIP Co de Phone Number [facility] [address] [place] [address], [place] [phone] * (ABNORMAL) Creatine kinase (09/29/2024 5:58 AM EDT) Only the most recent of3 resultswithin the time period is included. Pathologist [facility] Total CK 1,852(H) 22 - 269 unit/L LAB CHEMISTRY METHOD 09/29/2024 7:24 AM EDT [facility] Blood Venous blood specimen / Unknown Venipuncture / Unknown 09/29/2024 5:58 AM EDT 09/29/2024 6:12 AM EDT [facility] LAB BLOOD ORDERABLES Hoa l Result Performing Organization Address [facility] Co de Phone Number [facility] [address] [place] [address], [place] [phone] * (ABNORMAL) Basic metabolic panel (09/29/2024 5:58 AM EDT) Only the most recent of3 resultswithin the time period is included. Sodium 137 133 - 145 mmol/L LAB CHEMISTRY METHOD 09/29/2024 7:05 AM EDT [facility] Potassium 4.3 3.5 - 5.5 mmol/L LAB CHEMISTRY METHOD 09/29/2024 7:05 AM EDT [facility] Chloride 100 96 - [...] VIDAL LAB BLOOD ORDERABLES Hoa l Result [facility] [address] [place] [address], * XR Hip 1 View Left (09/28/2024 [...] Signed Date: 09/28/2024 12:51 ET Workstation ID: [id number] Transcribed By: Self Edit Transcribed Date: 09/28/2024 [...] Signed Date: 09/28/2024 12:51 ET Workstation ID: [id number] Transcribed By: Self Edit Transcribed Date: 09/28/2024 12:48 ET Katelyn VIDAL IMG XR PROCEDURES Final R esult * Phosphorus (09/28/2024 6:01 AM EDT) [facility] Phosphorus 3.1 2.5 - 4.5 mg/dL LAB CHEMISTRY METHOD 09/28/2024 7:56 AM EDT [facility] Blood Venous blood specimen / Unknown Venipuncture / Unknown 09/28/2024 6:01 AM EDT 09/28/2024 6:24 AM EDT Katelyn VIDAL LAB BLOOD ORDERABLES Hoa chavez Result [facility] [address] [place] [address], * (ABNORMAL) Comprehensive metabolic panel (09/28/2024 6:01 [...] LAB CHEMISTRY METHOD 09/28/2024 7:56 AM EDT [facility] AST (SGOT) 77(H) 10 - 42 unit/L LAB CHEMISTRY METHOD 09/28/2024 7:56 AM T [facility] ALT (SGPT) 30 10 - 60 unit/L LAB CHEMISTRY METHOD 09/28/2024 7:56 AM [facility] Alkaline Phosphatase 69 42 - 121 unit/L LAB CHEMISTRY METHOD 09/28/2024 7:56 AM T [facility] Total Protein 6.0 6.0 [...] VIDAL LAB BLOOD ORDERABLES Hoa l Result [facility] [address] [place] [address], * (ABNORMAL) Drug abuse screen 8a panel, urine (09/27/2024 4:23 PM EDT) Amphetamine Screen, Ur Negative Negative LAB CHEMISTRY METHOD 7:18 PM EDT [facility] Comment:Certain OTC medicati ons containing ephedrine, phenylephrine, pseudoephedrine and phenylpropanolamine can cause false positive results. Barbiturate Screen, Ur Negative Negative LAB CHEMISTRY METHOD 7:18 PM EDT [facility] Benzodiazepine Screen, Ur Negative Negative LAB CHEMISTRY METHOD 5 7:18 PM EDT [facility] Cocaine Screen, Ur Negative Negative LAB CHEMISTRY METHOD 5 7:18 PM EDT [facility] Opiate Screen, Ur Positive(A ) Negative LAB CHEMISTRY METHOD 5 7:18 PM EDT [facility] Cannabinoid (THC) Screen, Ur Negative Negative LAB CHEMISTRY METHOD 5 7:18 PM EDT [facility] Comment:Specimens from patie nts taking pantoprazole sodium (Protonix) have been shown to produce false positive results. Oxycodone Screen, Ur Negative Negative LAB CHEMISTRY METHOD 5 7:18 PM EDT [facility] Fentanyl, Ur Negative Negative LAB CHEMISTRY METHOD 5 7:18 PM EDT [facility] Urine Urine specimen obtained by clean catch procedure / Unknown Non-blood Collection / Unknown 09/27/2024 4:23 PM EDT 09/27/2024 6:30 PM EDT Narrative [facility] - 09/27/2024 7:18 PM EDT Assay cutoffs: Amphetamines 1000 ng/mL Barbiturates 200 ng/mL Benzodiazepines 200 ng/mL Cocaine 300 ng/mL Fentanyl 1 ng/mL Opiates 300 ng/mL Oxycodone 100 ng/mL THC 50 ng/mL Semi-quantitative assay for screening purposes only. Unconfirmed screening result should not be used for non-medical purposes. *ALTERNATE METHOD CONFIRMATION DONE UPON REQUEST ONLY* Katelyn VIDAL LAB URINE ORDERABLES Hoa chavez Result [facility] [address] [place] [address], * (ABNORMAL) Aldolase (09/27/2024 1:41 PM EDT) Aldolase 20.6(H) 1.2 - 7.6 U/L 10/03/2024 9:54 AM EDT [facility] Comment: Test performed at [facility], [address], [place] [address] Alisha Jesus MD, PhD - Environmental Change Analyst Blood Venous blood specimen / Unknown Venipuncture / Unknown 09/27/2024 1:41 PM EDT 09/27/2024 2:09 PM EDT us Katelyn Potts PA LAB BLOOD ORDERABLES Hoa l Result [facility] [address] [place] [address] * (ABNORMAL) TRANSTHORACIC ECHOCARDIOGRAM (TTE) COMPLETE (09/27/2024 1:21 PM EDT) Left Atrium Minor [place] 5.3 cm CV PACS Left Atrium Major [place] 5.3 cm CV PACS LA Area Sys [...] Volume 64 mL CV PACS MV Deceleration Jack 4.0 m/s2 CV PACS E Wave Deceleration [...] LAB CHEMISTRY METHOD 09/27/2024 11:02 AM EDT [facility] ([facility] Blood Venous blood specimen / Unknown Venipuncture / Unknown 09/27/2024 10:20 AM EDT 09/27/2024 10:26 AM EDT Narrative [facility] - 09/27/2024 11:02 AM EDT High levels of biotin in samples may falsely decrease hsTroponin values. Use caution when interpreting hsTroponin results in patients taking biotin who exhibit renal impairment (eGFR <60) or in patients taking more than 20 mg/day of biotin. Katelyn VIDAL LAB BLOOD ORDERABLES Hoa chavez Result [facility] [address] [place] [address], [place] [phone] * (ABNORMAL) Lipid panel with reflex to direct LDL (09/27/2024 10:20 AM EDT) Only the most recent of2 resultswithin the time period is included. Cholesterol 234(H) 0 - 200 mg/dL LAB CHEMISTRY METHOD 09/27/2024 12:46 PM EDT [facility] Triglycerides 71 0 - 150 mg/dL LAB CHEMISTRY METHOD 09/27/2024 12:46 PM [facility] HDL 79 >=40 mg/dL LAB CHEMISTRY METHOD 09/27/2024 12:46 PM [facility] LDL Calculated 141(H) 0 - 100 mg/dL LAB CHEMISTRY METHOD 09/27/2024 12:46 PM [facility] VLDL Cholesterol Koby 14.2 mg/dL LAB CHEMISTRY METHOD 09/27/2024 12:46 PM [facility] Non HDL Chol. (LDL+VLDL) 155(H) <145 mg/dL LAB CHEMISTRY METHOD 09/27/2024 12:46 PM [facility] Chol/HDL Ratio 3.0 0.0 - 4.4 LAB CHEMISTRY METHOD 09/27/2024 12:46 PM [facility] Blood Venous blood specimen / Unknown Venipuncture / Unknown 09/27/2024 10:20 AM EDT 09/27/2024 10:25 AM EDT Katelyn MeaghandarshanKieran NM LAB BLOOD ORDERABLES Hoa l Result [facility] [address] [place] [address], [place] [phone] * Sedimentation rate (09/27/2024 10:20 AM EDT) Sed Rate 23 0 - 30 mm/hr LAB HEMETOLOGY METHOD 09/27/2024 10:39 AM EDT [facility] Blood Venous blood specimen / Unknown Venipuncture / Unknown 09/27/2024 10:20 AM EDT 09/27/2024 10:25 AM EDT Simbagloria Katlyn NM LAB BLOOD ORDERABLES Hoa l Result Performing Organization Address [facility]/ZIP Co de Phone Number [facility] [address] [place] [address], * C reactive protein, high sensitivity (09/27/2024 10:20 AM EDT) CRP, High Sensitivity 21.90 mg/L LAB CHEMISTRY METHOD 09/27/2024 11:35 AM EDT [facility] Comment: Cardio CRP Relative Risk Categories [...] MD LAB BLOOD ORDERABLES Final Resul t [facility] [address] [place] [address], * (ABNORMAL) Lipase (09/27/2024 10:20 AM EDT) Pathologist [facility] Lipase 12(L) 13 - 75 unit/L LAB CHEMISTRY METHOD 09/27/2024 10:57 AM EDT [facility] Blood Venous blood specimen / Unknown Venipuncture / Unknown 09/27/2024 10:20 AM EDT 09/27/2024 10:25 AM EDT Katelyn VIDAL LAB BLOOD ORDERABLES Hoa l Result Performing Organization Address City/[facility]/ZIP Co de Phone Number [facility] [address] [place] [address], * (ABNORMAL) Hepatic function panel (09/27/2024 10:20 AM EDT) Pathologist [facility] Total Protein 6.8 6.0 - 8.0 g/dL LAB CHEMISTRY METHOD 09/27/2024 10:57 AM EDT [facility] Albumin 3.8 3.2 - 5.0 g/dL LAB CHEMISTRY METHOD 09/27/2024 10:57 AM EDT [facility] Total Bilirubin 0.5 0.0 - 1.4 mg/dL LAB CHEMISTRY METHOD 09/27/2024 10:57 AM EDT [facility] Bilirubin, Direct 0.1 0.0 - 0.3 mg/dL LAB CHEMISTRY METHOD 09/27/2024 10:57 AM EDT [facility] Bilirubin, Indirect 0.4 0.0 - 1.1 mg/dL LAB CHEMISTRY METHOD 09/27/2024 10:57 AM EDT [facility] ALT (SGPT) 32 10 - 60 unit/L LAB CHEMISTRY METHOD 09/27/2024 10:57 AM EDT [facility] AST (SGOT) 86(H) 10 - 42 unit/L LAB CHEMISTRY METHOD 09/27/2024 10:57 AM EDT [facility] Alkaline Phosphatase 78 42 - 121 unit/L LAB CHEMISTRY METHOD 09/27/2024 10:57 AM EDT [facility] Blood Venous blood specimen / Unknown Venipuncture / Unknown 09/27/2024 10:20 AM EDT 09/27/2024 10:25 AM EDT Katelyn VIDAL LAB BLOOD ORDERABLES Hoa l Result Performing Organization Address City/[facility]/ZIP Co de Phone Number [facility] [address] [place] [address], [place] [phone] * ECG 12 lead (09/27/2024 10:00 AM EDT) Only the most recent of2 resultswithin the time period is included. Ventricular Rate ECG 66 BPM GEMUSE Atrial Rate 66 BPM GEMUSE P-R Interval 146 ms GEMUSE QRS Duration 86 ms GEMUSE Q-T Interval 392 ms GEMUSE QTc 410 ms GEMUSE P Wave [place] 47 degrees GEMUSE R [place] -6 degrees GEMUSE T [place] 19 degrees GEMUSE ECG Interpretation Normal sinus [...] Hold for add-ons. 09/27/2024 10:01 AM EDT [facility] Comment:Auto resulted. Blood Venous blood specimen / Unknown 09/27/2024 8:11 AM EDT 09/27/2024 8:17 AM EDT us Yuval Lake MD LAB BLOOD ORDERABLES F inal Result Performing Organization Address [facility]/ZIP Co de Phone Number [facility] [address] [place] [address], [place] [phone] * JAIME IFA with titer and pattern (09/27/2024 8:11 AM EDT) [facility] JAIME Negative Negative 09/27/2024 2:53 PM EDT [facility] Blood Venous blood specimen / Unknown 09/27/2024 8:11 AM EDT 09/27/2024 8:17 AM EDT Katelyn VIDAL LAB BLOOD ORDERABLES Hoa l Result Performing Organization Address [facility] Co de Phone Number [facility] [address] [place] [address], [place] [phone] * (ABNORMAL) B-type natriuretic peptide (09/27/2024 8:11 AM EDT) [facility] BNP 120(H) <=100 pcg/mL LAB CHEMISTRY METHOD 09/27/2024 8:59 AM EDT [facility] Blood Venous blood specimen / Unknown Venipuncture / Unknown 09/27/2024 8:11 AM EDT 09/27/2024 8:16 AM EDT Katelyn VIDAL LAB BLOOD ORDERABLES Hoa l Result Performing Organization Address City/[facility]/ZIP Co de Phone Number [facility] [address] [place] [address], [place] [phone] * (ABNORMAL) Creatine kinase and CKMB (09/27/2024 8:11 AM EDT) [facility] Total CK 3,151(H) 22 - 269 unit/L LAB CHEMISTRY METHOD 09/27/2024 9:49 AM EDT [facility] Comment:Results verified by repeat testing CK-MB 6.1(H) 1.0 - 3.6 ng/mL LAB CHEMISTRY METHOD 09/27/2024 9:49 AM EDT [facility] CK-MB Index 0.0 0.0 - 5.0 LAB CHEMISTRY METHOD 09/27/2024 9:49 AM EDT [facility] Blood Venous blood specimen / Unknown 09/27/2024 8:11 AM EDT 09/27/2024 8:17 AM EDT Katelyn Potts NM LAB BLOOD ORDERABLES Hoa chavez Result [facility] [address] [place] [address], [place] [phone] * (ABNORMAL) Complete blood count (09/27/2024 6:19 AM EDT) [facility] WBC 7.8 4.8 - 10.8 K/mcL LAB HEMETOLOGY METHOD 09/27/2024 6:50 AM EDT [facility] RBC 3.80 3.80 - 4.80 M/mcL LAB HEMETOLOGY METHOD 09/27/2024 6:50 AM EDT [facility] Hemoglobin 10.4(L) 11.5 - 16.0 g/dL LAB HEMETOLOGY METHOD 09/27/2024 6:50 AM EDT [facility] Hematocrit 33.4(L) 35.0 - 47.0 % LAB HEMETOLOGY METHOD 09/27/2024 6:50 AM EDT [facility] MCV 87.4 79.0 - 98.0 FL LAB HEMETOLOGY METHOD 09/27/2024 6:50 AM EDT [facility] MCH 27.2 27.0 - 32.0 pcg LAB HEMETOLOGY METHOD 09/27/2024 6:50 AM EDT [facility] MCHC 31.1(L) 32.0 - 37.0 g/dL LAB HEMETOLOGY METHOD 09/27/2024 6:50 AM EDT [facility] RDW 13.9 11.0 - 15.0 % LAB HEMETOLOGY METHOD 09/27/2024 6:50 AM EDT [facility] Platelets 208 130 - 400 K/mcL LAB HEMETOLOGY METHOD 09/27/2024 6:50 AM EDT [facility] MPV 9.9 7.0 - 11.0 FL LAB HEMETOLOGY METHOD 09/27/2024 6:50 AM EDT [facility] NRBC 0.0 <1.0 % LAB HEMETOLOGY METHOD 09/27/2024 6:50 AM EDT [facility] NRBC Absolute 0.00 <0.10 K/mcL LAB HEMETOLOGY METHOD 09/27/2024 6:50 AM T [facility] Blood Venous blood specimen / Unknown Venipuncture / Unknown 09/27/2024 6:19 AM EDT 09/27/2024 6:29 AM EDT us Idris Chawla MD LAB BLOOD ORDERABLES Final Res ult [facility] [address] [place] [address], * (ABNORMAL) Urinalysis with reflex microscopic and culture (09/26/2024 9:44 PM EDT) Specific [place] Urine 1.019 1.003 - 1.030 LAB URINALYSIS [...] - AUTOMATED METHOD 09/26/2024 9:57 PM EDT [facility] Bacteria, Urine Negative Negative /HPF LAB URINALYSIS - AUTOMATED METHOD 09/26/2024 9:57 PM EDT [facility] Hyaline Casts, Urine 1.2 0 - 3 /LPF LAB URINALYSIS - AUTOMATED METHOD 09/26/2024 9:57 PM EDT [facility] Urine Urine specimen obtained by clean catch procedure / Unknown Non-blood Collection / Unknown 09/26/2024 9:44 PM EDT 09/26/2024 9:49 PM EDT Melissa VIDAL LAB URINE ORDERABLES Final Resul t Performing Organization Address [facility]/ZIP Co de Phone Number [facility] [address] [place] [address], [place] [phone] * Arcos urine culture tube (09/26/2024 9:44 PM EDT) Extra Tube Hold for add-ons. 09/26/2024 11:01 PM EDT [facility] Comment:Auto resulted. Urine Urine specimen obtained by clean catch procedure / Unknown Non-blood Collection / Unknown 09/26/2024 9:44 PM EDT 09/26/2024 9:49 PM EDT Melissa VIDAL LAB URINE ORDERABLES Final Resul t [facility] [address] [place] [address], [place] [phone] * Culture urine (09/26/2024 9:44 PM EDT) Culture, Urine 10,000-49,000 CFU/mL Mixed bacterial morphotypes present suggestive of possible contamination during collection. Suggest appropriate recollection if clinically indicated. 09/27/2024 1:18 PM EDT [facility] Urine Urine specimen obtained by clean catch procedure / Unknown Non-blood Collection / Unknown 09/26/2024 9:44 PM EDT 09/26/2024 9:57 PM EDT us Melissa VIDAL LAB MICROBIOLOGY - GENERAL ORDER [id number] Final Result [facility] [address] [place] [address], * MR Brain wo Contrast (09/26/2024 6:19 [...] LAB HEMETOLOGY METHOD 09/26/2024 12:27 PM EDT [facility] RBC 4.00 3.80 - 4.80 M/mcL LAB HEMETOLOGY METHOD 09/26/2024 12:27 PM [facility] Hemoglobin 11.0(L) 11.5 - 16.0 g/dL LAB HEMETOLOGY METHOD 09/26/2024 12:27 PM [facility] Hematocrit 36.4 35.0 - 47.0 % LAB HEMETOLOGY METHOD 09/26/2024 12:27 PM [facility] MCV 90.1 79.0 - [...] LAB HEMETOLOGY METHOD 09/26/2024 12:27 PM EDT [facility] Basophils Absolute 0.01 0.00 - 0.20 K/[facility] LAB HEMETOLOGY METHOD 09/26/2024 12:27 PM EDT [facility] Immature Granulocytes Absolute 0.05(H) 0.00 - 0.03 K/[facility] LAB HEMETOLOGY METHOD 09/26/2024 12:27 PM EDT [facility] Blood Venous blood specimen / Unknown Venipuncture / Unknown 09/26/2024 12:08 PM EDT 09/26/2024 12:16 PM EDT Maricarmen Hatfield DO LAB BLOOD ORDERABLES Final Result Performing Organization Address [facility]/ZIP Co de Phone Number [facility] [address] [place] [address], [place] [phone] * Activated partial thromboplastin time (09/26/2024 12:08 PM EDT) aPTT 29.7 24.1 - 39.3 sec LAB COAGULATION METHOD 09/26/2024 12:29 PM EDT [facility] Blood Venous blood specimen / Unknown Venipuncture / Unknown 09/26/2024 12:08 PM EDT 09/26/2024 12:16 PM EDT Maricarmen Hatfield DO LAB BLOOD ORDERABLES Final Result Performing Organization Address City/[facility]/ZIP Co de Phone Number [facility] [address] [place] [address], [place] [phone] * Prothrombin time with INR (09/26/2024 12:08 PM EDT) Protime 11.8 10.6 - 13.9 sec LAB COAGULATION METHOD 09/26/2024 12:29 PM EDT [facility] INR 0.9 LAB COAGULATION METHOD 09/26/2024 12:29 PM EDT [facility] Blood Venous blood specimen / Unknown Venipuncture / Unknown 09/26/2024 12:08 PM EDT 09/26/2024 12:16 PM EDT Maricarmen Hatfield DO LAB BLOOD ORDERABLES Final Result Performing Organization Address [facility] Co de Phone Number [facility] [address] [place] [address], [place] [phone] * Thyroid stimulating hormone (09/26/2024 12:08 PM EDT) TSH 1.29 0.40 - 4.00 mcIU/mL LAB CHEMISTRY METHOD 09/26/2024 6:39 PM EDT [facility] Blood Venous blood specimen / Unknown Venipuncture / Unknown 09/26/2024 12:08 PM EDT 09/26/2024 12:16 PM EDT us Melissa VIDAL LAB BLOOD ORDERABLES Final Resul t Performing Organization Address [facility] de Phone Number [facility] [address] [place] [address], [place] [phone] * Thyroxine free (09/26/2024 12:08 PM EDT) Free T4 1.14 0.70 - 1.80 ng/dL LAB CHEMISTRY METHOD 09/26/2024 6:39 PM EDT [facility] Blood Venous blood specimen / Unknown Venipuncture / Unknown 09/26/2024 12:08 PM EDT 09/26/2024 12:16 PM EDT us Melissa VIDAL LAB BLOOD ORDERABLES Final Resul t Performing Organization Address City/[facility]/ZIP Co de Phone Number [facility] [address] [place] [address], [place] [phone] * (ABNORMAL) POCT Glucose, blood (09/26/2024 11:46 AM EDT) Glucose POCT 126(H) 70 - 100 mg/dL 09/26/2024 11:47 AM EDT [facility] Blood Capillary blood specimen / Unknown 09/26/2024 11:46 AM EDT 09/26/2024 11:48 AM EDT us Maricarmen Hatfield DO LAB POINT OF CARE T EST DOCKED DEVICE UNSOLICITED RESULTS Final Result [facility] [address] [place] [address], [place] [phone] * CT Angio Head/Neck Stroke wo and/or w Contrast (09/26/2024 11:24 AM EDT) Anatomical Region Laterality Modality Head and Neck Computed Tomogra phy 09/26/2024 11:5 7 AM EDT Impressions 09/26/2024 12:06 PM EDT 1. No large vessel occlusion, intracranial aneurysm, dissection, or hemodynamically significant cervical carotid stenosis. 2. 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 [place] ([id number]) -------- FINAL REPORT -------- Dictated By: Jhoana Chase Dictated Date: 09/26/2024 11:57 ET Assigned Physician: Jhoana Chase Reviewed and Electronically Signed By: Jhoana Chase Signed Date: 09/26/2024 12:06 ET Workstation ID: [id number] Transcribed By: Self Edit Transcribed Date: 09/26/2024 [...] was also performed. DLP: 2522.84 mGy/cm [employer] VCT Iterative reconstruction technique FINDINGS: CTA: INTRACRANIAL VASCULATURE: The bilateral A1 and M1 segments are widely patent. The more distal branches of the anterior and middle cerebral arteries also appear patent. The basilar artery is widely patent and terminates in the bilateral strategic communications manager. The right CLINICAL APPEALS SPECIALIST is partially supplied by the right internal [...] was also performed. DLP: 2522.84 mGy/cm [employer] VCT Iterative reconstruction technique FINDINGS: CTA: INTRACRANIAL VASCULATURE: The bilateral A1 and M1 segments are widelypatent. The more distal branches of the anterior and middle cerebralarteries also appear patent. The basilar artery is widely patent andterminates in the bilateral strategic communications manager. The right CLINICAL APPEALS SPECIALIST is partially supplied bythe right internal carotid [...] measuring 3.4 cm in diameter. [employer] PA ([id number]) -------- FINAL REPORT -------- Dictated By: Jhoana Chase Dictated Date: 09/26/2024 11:57 ET Assigned Physician: Jhoana Chase Reviewed and Electronically Signed By: Jhoana Chase Signed Date: 09/26/2024 12:06 ET Workstation ID: [id number] Transcribed By: Self Edit Transcribed Date: 09/26/2024 [...] of interpretation on 09/26/24 by secure message ([employer]). Teler[employer] YOUNG ([id number]) A Critical Document Only message has been documented for the office of MARICARMEN HATFIELD in the [facility] system on 09/26/2024 11:45 AM, Message ID [id number]. -------- FINAL REPORT -------- Dictated By: Jhoana Chase Dictated Date: 09/26/2024 11:41 ET Assigned Physician: Jhoana Chase Reviewed and Electronically Signed By: Jhoana Chase Signed Date: 09/26/2024 11:45 ET Workstation ID: [id number] Transcribed By: Self Edit Transcribed Date: 09/26/2024 11:41 ET Narrative 09/26/2024 11:45 AM EDT History: Stroke. Severe headache. Nausea. Altered mental status. Comparison: 09/16/16 Technique: Contiguous axial images were obtained at 2.5 mm intervals through the posterior fossa and at 5 mm intervals through the remainder of the brain without intravenous contrast. DLP: 808.85 mGy/cm GE VBOXpeed VCT Iterative reconstruction technique Findings: The ventricular [...] without intravenous contrast. DLP: 808.85 mGy/cm GE VBOXpeed VCT Iterative reconstruction technique Findings: The ventricular [...] time ofinterpretation on 09/26/24 by secure message ([employer]). Teler[employer] YOUNG ([id number]) A Critical Document Only message has been documented for the office ofMARICARMEN HATFIELD in the [facility] system on09/26/2024 11:45 AM, Message ID [id number]. -------- FINAL REPORT -------- Dictated By: Jhoana Chase Dictated Date: 09/26/2024 11:41 ET Assigned Physician: Jhoana Chase Reviewed and Electronically Signed By: Jhoana Chase Signed Date: 09/26/2024 11:45 ET Workstation ID: [id number] Transcribed By: Self Edit Transcribed Date: 09/26/2024 [...] AM EDT Narrative 06/22/2017 1:56 PM EDT [facility] Diagnostic Imaging Department [address] [place] [address] Patient: EDUARDO ENGEL D.O.B./Age/Sex: 1950 - 66 - F Unit#: [id number] Location/Status: SPDIMAM/REG CLI Mnemonic/[facility] Ordering Physician: LITA TORRES MD [facility] Dexa Axial Skeleton - 06/22/17 - 30 [facility] Dexa Axial Skeleton INDICATION: POST MENOPAUSE [...] placing the patient at risk for fracture. [id number] A report detailing these results has been enclosed. Dictating Physician: BEN GASTON MD Electronically Signed by: BEN GASTON MD Dic Date/Time: 06/22/171353 Sign date/Time: 06/22/17 135 Procedure Note Ben Gaston MD - 03/31/2022 [facility] Diagnostic Imaging Department [address] [place] [address] Patient: EDUARDO ENGEL D.O.B./Age/Sex: 1950 - 66 -F Unit#: [id number] Location/Status: SPDIMAM/REG CLI Mnemonic/[facility]ing [facility] Ordering Physician: LITA TORRES MD [facility] Dexa Axial Skeleton - 06/22/17 - 729 [facility] Dexa Axial Skeleton INDICATION: POST MENOPAUSE Technique: Bone densitometry was performed utilizing dual energy x-ray absorptiometry (DEXA). The lumbar spine is evaluated in the AP projectionfrom L1 through L4. The proximal femora are evaluated in the AP projection bilaterally. [facility] Findings: AP spine: Bone mineral density: 0.983 gm/cm2 T-score: -1.5 Femoral total (mean, bilateral): Bone mineral density: 0.704 gm/cm2 T-score: -2.4 Left femoral neck: Bone mineral density: 0.618 gm/cm2 T-score: -3.0 IMPRESSION: Findings suggesting osteoporosis, placing the patient at risk forfracture. 13342 A report detailing these results has been [...] ID:[id number] Group ID:SCO Type:Not on file Address: [place] [address] [place] [id number] Advance Directives * Full Code - Default [...] currently active code status orders. Care Teams Olericulturist Relationship Specialty Start Date End Date Addi Holland NP [address], [place] PCP - General Family Medicine 03/04/21
--- OUTSIDE RECORDS SUMMARY | 2024-11-13 10:30 | XMS_ITS | Patient Health Record ---
Author Organization [employer]. Address [address] [place] [address] Care Team Providers Care Echometer Engineer Name Role Phone Macario Scott Primary Care Provider [phone] Allergies Allergen (clinical drug ingredient) Drug/Non Drug Allergy documented on EMR Reaction Allergy Type Onset Date Status tramadol Tramadol rash Drug Allergy Active Results Component Value Reference Range Notes TSH reflex to T4 Reviewed date:03/31/2024 08:44:59 AM Interpretation: Performing Lab:[facility] [address] [id number], Phone - [phone], Director - Bree Notes/Report: TSH 1.770 0.450-4.500 uIU/mL TSH reflex to T4 Reviewed date:04/26/2024 08:51:11 AM Interpretation: Performing Lab:[facility] [address] [id number], Phone - [phone], Director - Bree Notes/Report: TSH 3.730 0.450-4.500 uIU/mL Microalb/Creat Ratio, Timed Ur-LC Reviewed date:04/26/2024 08:51:11 AM Interpretation: Performing Lab:[facility] [address] [id number], Phone - [phone], Director - Bree Notes/Report: Ur.Collec. Interval 0 [...] et-LC-Q Reviewed date:04/26/2024 08:51:11 AM Interpretation: Performing Lab:[facility], [address] [place] [id number], Phone - [phone], Director - Bree Notes/Report: WBC 5.5 3.4-10.8 [...] Immature Grans (Abs) 0.0 0.0-0.1 x10E3/uL Urinalysis, Pmnohzbg-AB-K Reviewed date:04/26/2024 08:51:11 AM Interpretation: Performing Lab:[address] [id number], Phone - [phone], Director - Bree Notes/Report: Specific [place] 1.016 1.005-1.030 pH 7.0 5.0-7.5 Urine-Color Yellow [...] Reviewed date:04/26/2024 08:51:11 AM Interpretation: Performing Lab:[facility] [place], [address] [place] [id number], Phone - [phone], Director - Bree Notes/Report: Glucose 94 70-99 [...] Reviewed date:04/26/2024 08:51:11 AM Interpretation: Performing Lab:[facility] [place], [facility], [place] [id number], Phone - [phone], Director - Bree Notes/Report: Cholesterol, Total 232 100-199 mg/dL Triglycerides 76 0-149 mg/dL HDL Cholesterol 71 >39 mg/dL VLDL Cholesterol Koby 13 5-40 mg/dL LDL Chol Calc (NIH) 148 0-99 mg/dL LDL/HDL Ratio 2.1 0.0-3.2 ratio LDL/HDL Ratio Men Women 1/2 Avg.Risk 1.0 1.5 Avg.Risk 3.6 3.2 2X Avg.Risk 6.2 5.0 3X Avg.Risk 8.0 6.1 Cardiovascular Risk Assessme nt Reviewed date:04/06/2024 12:00:17 PM Interpretation: Performing Lab:[facility] [id number], Phone - [phone], Director - Bree Notes/Report: Interpretation Note Supplemental report is available. PDF . EKG Electrocardiogram Reviewed date:03/24/2024 02:15:49 PM Interpretation: Performing Lab: Notes/Report: Lipid Panel-Q-LC Reviewed date:03/31/2024 08:45:24 AM Interpretation: Performing Lab:[facility] [id number], Phone - [phone], Director - Bree Notes/Report: Cholesterol, Total 222 100-199 mg/dL Triglycerides 65 0-149 mg/dL HDL Cholesterol 76 >39 mg/dL VLDL Cholesterol Koby 11 5-40 mg/dL LDL Chol Calc ([facility]) 135 0-99 mg/dL Comprehensive Metabolic Pane l 14+eGFR-LC-Q Reviewed date:03/31/2024 08:45:20 AM Interpretation: Performing Lab:[facility] [id number], Phone - [phone], Director - Bree Notes/Report: Glucose 82 70-99 [...] IU/L ALT (SGPT) 9 0-32 IU/L Urinalysis, Qtznzdhb-HM-M Reviewed date:03/31/2024 08:45:17 AM Interpretation: [facility] [address] [place] [id number], Phone - [phone], Director - Bree Notes/Report: Specific [place] 1.020 1.005-1.030 pH 7.0 5.0-7.5 Urine-Color Yellow [...] et-LC-Q Reviewed date:03/31/2024 08:45:13 AM Interpretation: [facility]forming [facility] [address] [place] [id number], Phone - [phone], Director - Bree Notes/Report: WBC 7.0 3.4-10.8 [...] Reviewed date:03/31/2024 08:45:06 AM Interpretation: Performing Lab:[facility] [place], [address] [place] [id number], Phone - [phone], Director - Bree Notes/Report: Creatinine, Urine 122.7 Not Estab. mg/dL Albumin, Urine 12.5 Not Estab. ug/mL Alb/Creat Ratio 10 0-29 mg/g creat Normal: 0 - 29 Moderately increased: 30 - 300 Severely increased: >300 Occult Blood, Fecal, IA-[facility] Reviewed date:03/31/2024 08:45:03 AM Interpretation: Performing Lab:[facility], [address] [place] [id number], Phone - [phone], Director - Bree Notes/Report: Occult Blood, Fecal, IA Negative Negative Occult Blood, Fecal, IA-[facility] Reviewed date:05/04/2024 04:08:08 PM Interpretation: Performing Lab:[facility], [address] [place] [id number], Phone - [phone], Director - Bree Notes/Report: Occult Blood, Fecal, IA Negative Negative Cardiovascular Risk Assessme nt Reviewed date:04/26/2024 08:51:11 AM Interpretation: Performing Lab:[facility], [address] [place] [id number], Phone - [phone], Director - Bree Notes/Report: Interpretation Note Supplemental report is available. PDF . Reason For Referral Reason If additional kathy ting is needed, please refer back to PCP. Please fax consult notes and/or results of procedure approved to [phone]. Thanks! ~Annual Eye Exam~ Diagnosis 1 Encounter for examin ation of eyes and vision without abnormal findings (Z01.00) Referral Organization [facility] Referring Provider First Name Macario Referring Provider Last Name Tyler Referring Provider Speciality General Pr actice Referred Provider [employer] Referred Provider Specialty Emulsion Operator Referral Priority Routine Reason Please fax consul t notes and/or results of procedure approved to [phone]. Thanks! CONSULT ONLY - MANAGED CARE ~Annual Eye Exam~ Diagnosis 1 Encounter for examin ation of eyes and vision without abnormal findings (Z01.00) Referral Organization [facility] Referring Provider First Name Macario Referring Provider Last Name Tyler Referring Provider Speciality General Pr actice Referred Provider [employer] Referred Provider Specialty Emulsion Operator Referral Priority Routine Medications Medication SIG (Take, [...] Problem Status W/U Status Risk Notes Problem Mixed hyperlipidemia (611152599) Mixed hyperlipidemia (E78.2) Active confirmed Problem Chronic kidney disease due to hypertension (094879473635401) Hypertensive chronic kidney disease with stage 1 through stage 4 chronic kidney disease, or unspecified chronic kidney disease (I12.9) Active confirmed Problem Fibromyalgia (587138739) Fibromyalgia (M79.7) Active confirmed Problem Chronic insomnia (104911066) Chronic insomnia (F51.04) Active confirmed Problem Vertigo (265645695) Vertigo (R42) Active confirmed Problem Acquired hypothyroidism (378871658) Acquired hypothyroidism (E03.9) Active confirmed Problem Migraine (48303525) Migraine syndrome (G43.909) Active confirmed Problem Chronic kidney disease stage 2 (879864071) CKD (chronic kidney disease), stage II (N18.2) Active confirmed GFR 75 as per lab results from Problem Former smoker (6071735) Former smoker (Z87.891) Active confirmed Problem Moderate recurrent major depression (23760036) 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) Active confirmed Problem Uncomplicated severe persistent asthma (754679453) Severe persistent asthma without complication (J45.50) Active confirmed Vital [...] N/A Encounters Encounter Location Date Provider Diagnosis [facility] [address] [address] 03/24/2024 Macario [facility] [address] [facility] [address] [place] [address] 03/24/2024 Mac[facility] [address] [facility] [address] [place] [address] 03/31/2024 Macario [facility] [address] [facility] [address] [place] [address] 04/24/2024 Macario Scott Essential (primary) hypertension I10 ; Mixed hyperlipidemia E78.2 and Acquired hypothyroidism E03.9 [facility] [address] [facility] [address] [place] [address] 03/24/2024 Macario Scott Essential (primary) hypertension I10 [...] eyes and vision without abnormal findings Z01.00 [place] [address] [place] [address] 03/31/2024 Macario Scott Hypertensive chronic kidney disease [...] of 25.0 to 25.9 in adult Z68.25 [facility] [address] [facility] [address] [place] [address] 05/02/2024 Macario Scott Severe persistent asthma without [...] Comprehensive Metabolic Panel 14+eGFR-LC -Q 05/02/2024 Urinalysis, Crqpomhg-YM-D 05/02/2024 CBC With Differential/Wmmgdzwe-PL-V 04/13 Mammo SCREENING MAMMO DIGITAL, SOHEILA 05/02 Mammo SCREENING MAMMO DIGITAL, SOHEILA 03/24 CHEST X-RAY (PA/LATERAL) 05/02/2024 CHEST X-RAY (PA/LATERAL) 03/24/2024 Future Test Test Name Order Date Lipid Panel With LDL/HDL Ratio-LC 2024 Comprehensive Metabolic Panel 14+eGFR-LC -Q 09/25/2024 Urinalysis, Wdtcgraq-BG-H 09/25/2024 CBC With Differential/Evnsbbex-RJ-S 09/10 Insurance Providers Payer Name Payer Address Payer Phone Subscriber Number Group Number Insured Name Patient Relationship to Insured Coverage Start Date Coverage End Date [facility] [address] [address] [place] [address] [id number] [place], [place] Self - patient is the insured Medical (General) History Medical History History ICD Code hyperension asthma sinusitis migraines thyroid Surgical History Surgery Date(Month/Year) hystrectomy total 1996 right leg n/a nose n/a carpal tunel on both hands n/a
--- OUTSIDE RECORDS SUMMARY | 2024-11-13 10:30 | XMS_ITS | Encounter Summary ---
Author Organization [facility] Address [address] [place] [address] Phone Care Team Providers Care Waitstaff Captain Name Role Phone Addi Holland LABORER CHEESEMAKING Primary Care Provider + Encounter Details Date Type Department Care Team (Late st Contact Info) Description 11/02/2023 Procedure Pass [facility]oscopy Admitting Dept Virtual Department [address] [place] [address] Social History Tobacco Use Types Packs/Day Years [...] on filedocumented in this encounter Care Teams Waitstaff Captain Relationship Specialty Start Date End Date Addi Holland NP [address] [place] [address] [email or web address] PCP - General Nurse Practitioner 02/17/23 documented as of this encounter Additional Source Comments The information contained in this document represents components of the legal health record. It is not the complete legal health record.[facility]
== END 2024-11-13 10:26 | disposition home or self-care (01) ==
LOC: HO.PMC 09:54
PROVIDERS: Visit Provider Internal Medicine
DX: M47.812 Spondylosis without myelopathy or radiculopathy, cervical region (principal)
CPT/HCPCS: 99213

== ENCOUNTER → 2024-11-13 09:53 | Outpatient (BNVA) | payer OTHER, SELFPAY | PROVIDERS: Visit Provider Internal Medicine | DX: M47.812 Spondylosis without myelopathy or radiculopathy, cervical region (principal) | CPT/HCPCS: 99212 ==

== ENCOUNTER 2024-11-24 09:41 | Outpatient (REF) | payer OTHER, SELFPAY ==
--- OUTSIDE RECORDS SUMMARY | 2024-04-04 04:30 | XMS_ITS ---
Author Organization [facility] Address [address] [place] [address] Care Team Providers Care Kennel Worker Name Role Phone AUTUMN PADILLA Primary Care Provider REASON FOR VISIT follow up labs + MMSE Encounters Encounter Location Date Provider Diagnosis [facility] [address] [place] [address] 04/04/2024 AUTUMN BEASLEY Plan Of Treatment No Information Progress Notes * JONAH Marie JORGEDO B:1950 (74 yo F)Acc No.[id number]:04/04/2024 Progress Notes Patient: Marie DUVAL Provider: Lawson BEASLEY MD :1950 A ge:73 Y S ex:Female Date:04/04/2024 Phone: Address:[address] [place], [place] [phone] Structured Data:Consent to r eceive voicemail/text messages? : YES Subjective: * Chief Complaints: * 1 . follow up labs + MMSE. * Medical History: Objective: * Vitals: Assessment: Plan: * Treatment: * Billing Information: * Visit Code: * Procedure Codes: * Electronic signature of AUTUMN BEASLEY MD on 11/24/2024 at 09:49 AM EDT Sign off status: Pending * Provider: Lawson BEASLEY MD Date: 06/05/2023 Generated for Printi ng/Faxing/eTransmitting on: 0 11/24/2024 09:49 AM EDT
--- NOTE | ~2024-11-24 | FL_ITS ---
EXAMINATION: XR FLUOROSCOPY UPPER GI WITH AIR CLINICAL INFORMATION: Bariatric surgery status. COMPARISON: Upper GI air contrast study 12/10/2022 TECHNIQUE: Routine upper GI contrast study was performed in upright and lying position. FINDINGS: Following oral administration of thick barium and effervescent granules is normal propagation bolus from the oral cavity through the pharynx, esophagus into stomach without any evidence of obstruction, narrowing or stricture. There is normal peristalsis visualized and esophagus . There is ventral plate and screws along the C6 and C7 vertebra for fusion. There is old bony fusion of C4, C5 and C6 vertebra. On placing patient supine and prone there are surgical yolis in the epigastric region from gastric reduction surgery. The stomach is an small caliber with fast transition barium from the esophagus through the stomach into the duodenum. The mucosal of the stomach, duodenal bulb and the sweep is normal. The course of the stomach and the duodenum is normal except for a small hiatal hernia. The stomach is small caliber. Similar findings were seen on the previous exam. FLUOROSCOPY TIME: 2 minutes. DOSE AREA PRODUCT: 1787 uGy-m2 (microgray-meter squared) FL/FL upper GI w air IMPRESSION: Small caliber stomach with fast transition of barium seen through the stomach into the small bowel. Small hiatal hernia without reflux. Normal peristalsis in the esophagus with no obstruction narrowing. No major change compared to 12/10/2022 except for normal peristalsis of the esophagus. Electronically signed by: Giancralo Britton MD 11/24/2024 11:34 AM EDT
--- OUTSIDE RECORDS SUMMARY | 2024-11-24 09:49 | XMS_ITS | Clinical Summary ---
Author Organization [facility] Address [address] [place] [address] Phone Care Team Providers Care Core Rescuer Name Role Phone Addi Holland NP Primary [...] - 10/02/2024 11:59 PM EDT Hospital Encounter [facility] Neurodiagnostic [address] [place] [address] Myopathy Discharge Disposition: Home or Self Care 09/26/2024 11:04 AM EDT - 09/29/2024 4:43 PM EDT Hospital Encounter [facility] Urology Unit [address] [place] [address] Maricarmen Hatfield DO [place], Gary [...] TUNNEL REL UPPER GASTROINTESTINAL ENDOSCOPY 08/18/2016 PROCEDURE: PA UPPER GI ENDOSCOPY PERFORMED; COMMENT: Erosive gastritis, [...] your loved ones. For example, early childhood aide classroom or elderly care for an older adult? [...] result were not included. [facility] [address] [place] [address] Electromyograph Report Date of service: 10/02/24 Patient [...] note were not included. [facility] [address] [place] [address] Electromyograph Report Date of service: 10/02/24 Patient [...] 2. No active pulmonary process. Telerad YOUNG ([id number]) -------- FINAL REPORT -------- Dictated By: Jhoana Chase Dictated Date: 10/01/2024 10:10 ET Assigned Physician: Jhoana Chase Reviewed and Electronically Signed By: Jhoana Chase Signed Date: 10/01/2024 10:12 ET Workstation ID: [id number] Transcribed By: Self Edit Transcribed Date: 10/01/2024 [...] 2. No active pulmonary process. Teleenio VIDAL ([id number]) -------- FINAL REPORT -------- Dictated By: Jhoana Chase Dictated Date: 10/01/2024 10:10 ET Assigned Physician: Jhoana Chase Reviewed and Electronically Signed By: Jhoana Chase Signed Date: 10/01/2024 10:12 ET Workstation ID: [id number] Transcribed By: Self Edit Transcribed Date: 10/01/2024 10:10 ET Katelyn VIDAL IMG XR PROCEDURES Final R esult * Lavender tube (09/29/2024 5:58 AM EDT) Only the most recent of2 resultswithin the time period is included. [facility] Extra Tube Hold for add-ons. 10/02/2024 9:01 AM EDT [facility] Comment:Auto resulted. Blood Venous blood specimen / Unknown Venipuncture / Unknown 09/29/2024 5:58 AM EDT 09/29/2024 6:17 AM EDT Yuval Lake MD LAB BLOOD ORDERABLES F inal Result [facility] [address] [place] [address], [place] [phone] * Magnesium (09/29/2024 5:58 AM EDT) Only the most recent of2 resultswithin the time period is included. [facility] Magnesium 2.1 1.9 - 2.6 mg/dL LAB CHEMISTRY METHOD 09/29/2024 7:05 AM EDT [facility] Blood Venous blood specimen / Unknown Venipuncture / Unknown 09/29/2024 5:58 AM EDT 09/29/2024 6:12 AM EDT [facility] LAB BLOOD ORDERABLES Hoa l Result Performing Organization Address City/[facility]/ZIP Co de Phone Number [facility] [address] [place] [address], [place] [phone] * (ABNORMAL) Creatine kinase (09/29/2024 5:58 AM EDT) Only the most recent of3 resultswithin the time period is included. Pathologist [facility] Total CK 1,852(H) 22 - 269 unit/L LAB CHEMISTRY METHOD 09/29/2024 7:24 AM EDT [facility] Blood Venous blood specimen / Unknown Venipuncture / Unknown 09/29/2024 5:58 AM EDT 09/29/2024 6:12 AM EDT [facility] LAB BLOOD ORDERABLES Hoa l Result Performing Organization Address [facility] Co de Phone Number [facility] [address] [place] [address], [place] [phone] * (ABNORMAL) Basic metabolic panel (09/29/2024 5:58 AM EDT) Only the most recent of3 resultswithin the time period is included. Sodium 137 133 - 145 mmol/L LAB CHEMISTRY METHOD 09/29/2024 7:05 AM EDT [facility] Potassium 4.3 3.5 - 5.5 mmol/L LAB CHEMISTRY METHOD 09/29/2024 7:05 AM EDT [facility] Chloride 100 96 - 110 [...] VIDAL LAB BLOOD ORDERABLES Hoa l Result [facility] [address] [place] [address], * XR Hip 1 View Left (09/28/2024 [...] Signed Date: 09/28/2024 12:51 ET Workstation ID: [id number] Transcribed By: Self Edit Transcribed Date: 09/28/2024 [...] Signed Date: 09/28/2024 12:51 ET Workstation ID: [id number] Transcribed By: Self Edit Transcribed Date: 09/28/2024 12:48 ET Katelyn VIDAL IMG XR PROCEDURES Final R esult * Phosphorus (09/28/2024 6:01 AM EDT) [facility] Phosphorus 3.1 2.5 - 4.5 mg/dL LAB CHEMISTRY METHOD 09/28/2024 7:56 AM EDT [facility] ([facility] Blood Venous blood specimen / Unknown Venipuncture / Unknown 09/28/2024 6:01 AM EDT 09/28/2024 6:24 AM EDT Katelyn VIDAL LAB BLOOD ORDERABLES Hoa chavez Result [facility] [address] [place] [address], * (ABNORMAL) Comprehensive metabolic panel (09/28/2024 6:01 [...] LAB CHEMISTRY METHOD 09/28/2024 7:56 AM EDT [facility] AST (SGOT) 77(H) 10 - 42 unit/L LAB CHEMISTRY METHOD 09/28/2024 7:56 AM T [facility] ALT (SGPT) 30 10 - 60 unit/L LAB CHEMISTRY METHOD 09/28/2024 7:56 AM [facility] Alkaline Phosphatase 69 42 - 121 unit/L LAB CHEMISTRY METHOD 09/28/2024 7:56 AM T [facility] Total Protein 6.0 6.0 - [...] AM EDT Katelyn VIDAL LAB BLOOD ORDERABLES Hao l Result [facility] [address] [place] [address], * (ABNORMAL) Drug abuse screen 8a panel, urine (09/27/2024 4:23 PM EDT) Amphetamine Screen, Ur Negative Negative LAB CHEMISTRY METHOD 7:18 PM EDT [facility] Comment:Certain OTC medicati ons containing ephedrine, phenylephrine, pseudoephedrine and phenylpropanolamine can cause false positive results. Barbiturate Screen, Ur Negative Negative LAB CHEMISTRY METHOD 7:18 PM EDT [facility] Benzodiazepine Screen, Ur Negative Negative LAB CHEMISTRY METHOD 5 7:18 PM EDT [facility] Cocaine Screen, Ur Negative Negative LAB CHEMISTRY METHOD 5 7:18 PM EDT [facility] Opiate Screen, Ur Positive(A ) Negative LAB CHEMISTRY METHOD 5 7:18 PM EDT [facility] Cannabinoid (THC) Screen, Ur Negative Negative LAB CHEMISTRY METHOD 5 7:18 PM EDT [facility] Comment:Specimens from patie nts taking pantoprazole sodium (Protonix) have been shown to produce false positive results. Oxycodone Screen, Ur Negative Negative LAB CHEMISTRY METHOD 5 7:18 PM EDT [facility] Fentanyl, Ur Negative Negative LAB CHEMISTRY METHOD 5 7:18 PM EDT [facility] Urine Urine specimen obtained by clean catch procedure / Unknown Non-blood Collection / Unknown 09/27/2024 4:23 PM EDT 09/27/2024 6:30 PM EDT Narrative [facility] - 09/27/2024 7:18 PM EDT [...] VIDAL LAB URINE ORDERABLES Hoa chavez Result [facility] [address] [place] [address], * (ABNORMAL) Aldolase (09/27/2024 1:41 PM EDT) Aldolase 20.6(H) 1.2 - 7.6 U/L 10/03/2024 9:54 AM EDT [facility] Comment: Test performed at [facility], [address], [place] [address] Alisha Jesus MD, PhD - Manager [employer] Blood Venous blood specimen / Unknown Venipuncture / Unknown 09/27/2024 1:41 PM EDT 09/27/2024 2:09 PM EDT us Katelyn Potts PA LAB BLOOD ORDERABLES Hoa l Result [facility] [address] [place] [address] * (ABNORMAL) TRANSTHORACIC ECHOCARDIOGRAM (TTE) COMPLETE (09/27/2024 1:21 PM EDT) Left Atrium Minor [place] 5.3 cm CV PACS Left Atrium Major [place] 5.3 cm CV PACS LA Area Sys [...] Volume 64 mL CV PACS MV Deceleration [place] 4.0 m/s2 CV PACS E Wave Deceleration [...] EDT [facility] ([facility]) [facility] Blood Venous blood specimen / Unknown Venipuncture / Unknown 09/27/2024 10:20 AM EDT 09/27/2024 10:26 AM EDT Narrative [facility] - 09/27/2024 11:02 AM EDT High levels of biotin in samples may falsely decrease hsTroponin values. Use caution when interpreting hsTroponin results in patients taking biotin who exhibit renal impairment (eGFR <60) or in patients taking more than 20 mg/day of biotin. Katelyn VIDAL LAB BLOOD ORDERABLES Hoa chavez Result [facility] [address] [place] [address], [place] [phone] * (ABNORMAL) Lipid panel with reflex to direct LDL (09/27/2024 10:20 AM EDT) Only the most recent of2 resultswithin the time period is included. Cholesterol 234(H) 0 - 200 mg/dL LAB CHEMISTRY METHOD 09/27/2024 12:46 PM EDT [facility] Triglycerides 71 0 - 150 mg/dL LAB CHEMISTRY METHOD 09/27/2024 12:[facility] HDL 79 >=40 mg/dL LAB CHEMISTRY METHOD 09/27/2024 12:46 PM [facility] LDL Calculated 141(H) 0 - 100 mg/dL LAB CHEMISTRY METHOD 09/27/2024 12:46 PM [facility] VLDL Cholesterol Koby 14.2 mg/dL LAB CHEMISTRY METHOD 09/27/2024 12:46 PM [facility] Non HDL Chol. (LDL+VLDL) 155(H) <145 mg/dL LAB CHEMISTRY METHOD 09/27/2024 12:46 PM [facility] Chol/HDL Ratio 3.0 0.0 - 4.4 LAB CHEMISTRY METHOD 09/27/2024 12:46 PM [facility] Blood Venous blood specimen / Unknown Venipuncture / Unknown 09/27/2024 10:20 AM EDT 09/27/2024 10:25 AM EDT Katelyn MeaghandarshanKieran RI LAB BLOOD ORDERABLES Hoa l Result [facility] [address] [place] [address], [place] [phone] * Sedimentation rate (09/27/2024 10:20 AM EDT) Sed Rate 23 0 - 30 mm/hr LAB HEMETOLOGY METHOD 09/27/2024 10:39 AM EDT [facility] Blood Venous blood specimen / Unknown Venipuncture / Unknown 09/27/2024 10:20 AM EDT 09/27/2024 10:25 AM EDT Simbagloria Katlyn RI LAB BLOOD ORDERABLES Hoa l Result Performing Organization Address [facility]/ZIP Co de Phone Number [facility] [address] [place] [address], * C reactive protein, high sensitivity (09/27/2024 10:20 AM EDT) CRP, High Sensitivity 21.90 mg/L LAB CHEMISTRY METHOD 09/27/2024 11:35 AM EDT [facility] Comment: Cardio CRP Relative Risk [...] MD LAB BLOOD ORDERABLES Final Resul t [facility] [address] [place] [address], * (ABNORMAL) Lipase (09/27/2024 10:20 AM EDT) Pathologist [facility] Lipase 12(L) 13 - 75 unit/L LAB CHEMISTRY METHOD 09/27/2024 10:57 AM EDT [facility] Blood Venous blood specimen / Unknown Venipuncture / Unknown 09/27/2024 10:20 AM EDT 09/27/2024 10:25 AM EDT Katelyn VIDAL LAB BLOOD ORDERABLES Hoa l Result Performing Organization Address City/[facility]/ZIP Co de Phone Number [facility] [address] [place] [address], * (ABNORMAL) Hepatic function panel (09/27/2024 10:20 AM EDT) Pathologist [facility] Total Protein 6.8 6.0 - 8.0 g/dL LAB CHEMISTRY METHOD 09/27/2024 10:57 AM EDT [facility] Albumin 3.8 3.2 - 5.0 g/dL LAB CHEMISTRY METHOD 09/27/2024 10:57 AM EDT [facility] Total Bilirubin 0.5 0.0 - 1.4 mg/dL LAB CHEMISTRY METHOD 09/27/2024 10:57 AM EDT [facility] Bilirubin, Direct 0.1 0.0 - 0.3 mg/dL LAB CHEMISTRY METHOD 09/27/2024 10:57 AM EDT [facility] Bilirubin, Indirect 0.4 0.0 - 1.1 mg/dL LAB CHEMISTRY METHOD 09/27/2024 10:57 AM EDT [facility] ALT (SGPT) 32 10 - 60 unit/L LAB CHEMISTRY METHOD 09/27/2024 10:57 AM EDT [facility] AST (SGOT) 86(H) 10 - 42 unit/L LAB CHEMISTRY METHOD 09/27/2024 10:57 AM EDT [facility] Alkaline Phosphatase 78 42 - 121 unit/L LAB CHEMISTRY METHOD 09/27/2024 10:57 AM EDT [facility] Blood Venous blood specimen / Unknown Venipuncture / Unknown 09/27/2024 10:20 AM EDT 09/27/2024 10:25 AM EDT Katelyn VIDAL LAB BLOOD ORDERABLES Hoa l Result Performing Organization Address City/[facility]/ZIP Co de Phone Number [facility] [address] [place] [address], [place] [phone] * ECG 12 lead (09/27/2024 10:00 AM EDT) Only the most recent of2 resultswithin the time period is included. Ventricular Rate ECG 66 BPM GEMUSE Atrial Rate 66 BPM GEMUSE P-R Interval 146 ms GEMUSE QRS Duration 86 ms GEMUSE Q-T Interval 392 ms GEMUSE QTc 410 ms GEMUSE P Wave [place] 47 degrees GEMUSE R [place] -6 degrees GEMUSE T [place] 19 degrees GEMUSE ECG Interpretation Normal sinus [...] Hold for add-ons. 09/27/2024 10:01 AM EDT [facility] Comment:Auto resulted. Blood Venous blood specimen / Unknown 09/27/2024 8:11 AM EDT 09/27/2024 8:17 AM EDT us Yuval Lake MD LAB BLOOD ORDERABLES F inal Result Performing Organization Address [facility]/ZIP Co de Phone Number [facility] [address] [place] [address], [place] [phone] * JAIME IFA with titer and pattern (09/27/2024 8:11 AM EDT) [facility] JAIME Negative Negative 09/27/2024 2:53 PM EDT [facility] Blood Venous blood specimen / Unknown 09/27/2024 8:11 AM EDT 09/27/2024 8:17 AM EDT Katelyn VIDAL LAB BLOOD ORDERABLES Hoa l Result Performing Organization Address [facility] Co de Phone Number [facility] [address] [place] [address], [place] [phone] * (ABNORMAL) B-type natriuretic peptide (09/27/2024 8:11 AM EDT) [facility] BNP 120(H) <=100 pcg/mL LAB CHEMISTRY METHOD 09/27/2024 8:59 AM EDT [facility] Blood Venous blood specimen / Unknown Venipuncture / Unknown 09/27/2024 8:11 AM EDT 09/27/2024 8:16 AM EDT Katelyn VIDAL LAB BLOOD ORDERABLES Hoa l Result Performing Organization Address City/[facility]/ZIP Co de Phone Number [facility] [address] [place] [address], [place] [phone] * (ABNORMAL) Creatine kinase and CKMB (09/27/2024 8:11 AM EDT) [facility] Total CK 3,151(H) 22 - 269 unit/L LAB CHEMISTRY METHOD 09/27/2024 9:49 AM EDT [facility] Comment:Results verified by repeat testing CK-MB 6.1(H) 1.0 - 3.6 ng/mL LAB CHEMISTRY METHOD 09/27/2024 9:49 AM EDT [facility] CK-MB Index 0.0 0.0 - 5.0 LAB CHEMISTRY METHOD 09/27/2024 9:49 AM EDT [facility] Blood Venous blood specimen / Unknown 09/27/2024 8:11 AM EDT 09/27/2024 8:17 AM EDT Katelyn Potts RI LAB BLOOD ORDERABLES Hoa chavez Result [facility] [address] [place] [address], [place] [phone] * (ABNORMAL) Complete blood count (09/27/2024 6:19 AM EDT) [facility] WBC 7.8 4.8 - 10.8 K/mcL LAB HEMETOLOGY METHOD 09/27/2024 6:50 AM EDT [facility] RBC 3.80 3.80 - 4.80 M/mcL LAB HEMETOLOGY METHOD 09/27/2024 6:50 AM EDT [facility] Hemoglobin 10.4(L) 11.5 - 16.0 g/dL LAB HEMETOLOGY METHOD 09/27/2024 6:50 AM EDT [facility] Hematocrit 33.4(L) 35.0 - 47.0 % LAB HEMETOLOGY METHOD 09/27/2024 6:50 AM EDT [facility] MCV 87.4 79.0 - 98.0 FL LAB HEMETOLOGY METHOD 09/27/2024 6:50 AM EDT [facility] MCH 27.2 27.0 - 32.0 pcg LAB HEMETOLOGY METHOD 09/27/2024 6:50 AM EDT [facility] MCHC 31.1(L) 32.0 - 37.0 g/dL LAB HEMETOLOGY METHOD 09/27/2024 6:50 AM EDT [facility] RDW 13.9 11.0 - 15.0 % LAB HEMETOLOGY METHOD 09/27/2024 6:50 AM EDT [facility] Platelets 208 130 - 400 K/mcL LAB HEMETOLOGY METHOD 09/27/2024 6:50 AM EDT [facility] MPV 9.9 7.0 - 11.0 FL LAB HEMETOLOGY METHOD 09/27/2024 6:50 AM EDT [facility] NRBC 0.0 <1.0 % LAB HEMETOLOGY METHOD 09/27/2024 6:50 AM EDT [facility] NRBC Absolute 0.00 <0.10 K/mcL LAB HEMETOLOGY METHOD 09/27/2024 6:50 AM T [facility] Blood Venous blood specimen / Unknown Venipuncture / Unknown 09/27/2024 6:19 AM EDT 09/27/2024 6:29 AM EDT us Idris Chawla MD LAB BLOOD ORDERABLES Final Res ult [facility] [address] [place] [address], * (ABNORMAL) Urinalysis with reflex microscopic and culture (09/26/2024 9:44 PM EDT) Specific [place] Urine 1.019 1.003 - 1.030 LAB URINALYSIS [...] 09/26/2024 9:57 PM [facility] Squamous Epithelial, Urine 11 0 - 60 /LPF LAB URINALYSIS - AUTOMATED METHOD 09/26/2024 9:57 PM EDT [facility] Bacteria, Urine Negative Negative /HPF LAB URINALYSIS - AUTOMATED METHOD 09/26/2024 9:57 PM EDT [facility] Hyaline Casts, Urine 1.2 0 - 3 /LPF LAB URINALYSIS - AUTOMATED METHOD 09/26/2024 9:57 PM EDT [facility] Urine Urine specimen obtained by clean catch procedure / Unknown Non-blood Collection / Unknown 09/26/2024 9:44 PM EDT 09/26/2024 9:49 PM EDT Melissa VIDAL LAB URINE ORDERABLES Final Resul t Performing Organization Address [facility]/ZIP Co de Phone Number [facility] [address] [place] [address], [place] [phone] * Arcos urine culture tube (09/26/2024 9:44 PM EDT) Extra Tube Hold for add-ons. 09/26/2024 11:01 PM EDT [facility] Comment:Auto resulted. Urine Urine specimen obtained by clean catch procedure / Unknown Non-blood Collection / Unknown 09/26/2024 9:44 PM EDT 09/26/2024 9:49 PM EDT Melissa VIDAL LAB URINE ORDERABLES Final Resul t [facility] [address] [place] [address], [place] [phone] * Culture urine (09/26/2024 9:44 PM EDT) Culture, Urine 10,000-49,000 CFU/mL Mixed bacterial morphotypes present suggestive of possible contamination during collection. Suggest appropriate recollection if clinically indicated. 09/27/2024 1:18 PM EDT [facility] Urine Urine specimen obtained by clean catch procedure / Unknown Non-blood Collection / Unknown 09/26/2024 9:44 PM EDT 09/26/2024 9:57 PM EDT us Melissa VIDAL LAB MICROBIOLOGY - GENERAL ORDER [id number] Final Result [facility] ([facility]) [facility] [address] [place] [address], * MR Brain wo Contrast (09/26/2024 6:19 [...] LAB HEMETOLOGY METHOD 09/26/2024 12:27 PM EDT [facility] RBC 4.00 3.80 - 4.80 M/mcL LAB HEMETOLOGY METHOD 09/26/2024 12:27 PM [facility] Hemoglobin 11.0(L) 11.5 - 16.0 g/dL LAB HEMETOLOGY METHOD 09/26/2024 12:27 PM [facility] Hematocrit 36.4 35.0 - 47.0 % LAB HEMETOLOGY METHOD 09/26/2024 12:27 PM [facility] MCV 90.1 79.0 - 98.0 FL LAB HEMETOLOGY METHOD 09/26/2024 12:27 PM [facility] MCH 27.2 27.0 - [...] 12:27 PM [facility] Eosinophils Absolute 0.01 0.00 - 0.50 K/mcL LAB HEMETOLOGY METHOD 09/26/2024 12:27 PM EDT [facility] Basophils Absolute 0.01 0.00 - 0.20 K/[facility] LAB HEMETOLOGY METHOD 09/26/2024 12:27 PM EDT [facility] Immature Granulocytes Absolute 0.05(H) 0.00 - 0.03 K/[facility] LAB HEMETOLOGY METHOD 09/26/2024 12:27 PM EDT [facility] Blood Venous blood specimen / Unknown Venipuncture / Unknown 09/26/2024 12:08 PM EDT 09/26/2024 12:16 PM EDT Maricarmen Hatfield DO LAB BLOOD ORDERABLES Final Result Performing Organization Address [facility]/ZIP Co de Phone Number [facility] [address] [place] [address], [place] [phone] * Activated partial thromboplastin time (09/26/2024 12:08 PM EDT) aPTT 29.7 24.1 - 39.3 sec LAB COAGULATION METHOD 09/26/2024 12:29 PM EDT [facility] Blood Venous blood specimen / Unknown Venipuncture / Unknown 09/26/2024 12:08 PM EDT 09/26/2024 12:16 PM EDT Mariacrmen Hatfield DO LAB BLOOD ORDERABLES Final Result Performing Organization Address City/[facility]/ZIP Co de Phone Number [facility] [address] [place] [address], [place] [phone] * Prothrombin time with INR (09/26/2024 12:08 PM EDT) Protime 11.8 10.6 - 13.9 sec LAB COAGULATION METHOD 09/26/2024 12:29 PM EDT [facility] INR 0.9 LAB COAGULATION METHOD 09/26/2024 12:29 PM EDT [facility] Blood Venous blood specimen / Unknown Venipuncture / Unknown 09/26/2024 12:08 PM EDT 09/26/2024 12:16 PM EDT Maricarmen Hatfield DO LAB BLOOD ORDERABLES Final Result Performing Organization Address [facility] Co de Phone Number [facility] [address] [place] [address], [place] [phone] * Thyroid stimulating hormone (09/26/2024 12:08 PM EDT) TSH 1.29 0.40 - 4.00 mcIU/mL LAB CHEMISTRY METHOD 09/26/2024 6:39 PM EDT [facility] Blood Venous blood specimen / Unknown Venipuncture / Unknown 09/26/2024 12:08 PM EDT 09/26/2024 12:16 PM EDT us Melissa VIDAL LAB BLOOD ORDERABLES Final Resul t Performing Organization Address [facility] de Phone Number [facility] [address] [place] [address], [place] [phone] * Thyroxine free (09/26/2024 12:08 PM EDT) Free T4 1.14 0.70 - 1.80 ng/dL LAB CHEMISTRY METHOD 09/26/2024 6:39 PM EDT [facility] Blood Venous blood specimen / Unknown Venipuncture / Unknown 09/26/2024 12:08 PM EDT 09/26/2024 12:16 PM EDT us Melissa VIDAL LAB BLOOD ORDERABLES Final Resul t Performing Organization Address City/[facility]/ZIP Co de Phone Number [facility] [address] [place] [address], [place] [phone] * (ABNORMAL) POCT Glucose, blood (09/26/2024 11:46 AM EDT) Glucose POCT 126(H) 70 - 100 mg/dL 09/26/2024 11:47 AM EDT [facility] ([facility] Blood Capillary blood specimen / Unknown 09/26/2024 11:46 AM EDT 09/26/2024 11:48 AM EDT us Maricarmen Hatfield DO LAB POINT OF CARE T EST DOCKED DEVICE UNSOLICITED RESULTS Final Result [facility] [address] [place] [address], [place] [phone] * CT Angio Head/Neck Stroke wo and/or w Contrast (09/26/2024 11:24 AM EDT) Anatomical Region Laterality Modality Head and Neck Computed Tomogra phy 09/26/2024 11:5 7 AM EDT Impressions 09/26/2024 12:06 PM EDT 1. No large vessel occlusion, intracranial aneurysm, dissection, or hemodynamically significant cervical carotid stenosis. 2. 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 Telerad PA ([id number]) -------- FINAL REPORT -------- Dictated By: Jhoana Chase Dictated Date: 09/26/2024 11:57 ET Assigned Physician: Jhoana Chase Reviewed and Electronically Signed By: Jhoana Chase Signed Date: 09/26/2024 12:06 ET Workstation ID: [id number] Transcribed By: Self Edit Transcribed Date: 09/26/2024 [...] was also performed. DLP: 2522.84 mGy/cm GE Scanadupeed VCT Iterative reconstruction technique FINDINGS: CTA: INTRACRANIAL VASCULATURE: The bilateral A1 and M1 segments are widely patent. The more distal branches of the anterior and middle cerebral arteries also appear patent. 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 The right BARBER SHOP MANAGER is partially supplied by the right internal [...] was also performed. DLP: 2522.84 mGy/cm GE Scanadupeed VCT Iterative reconstruction technique FINDINGS: CTA: INTRACRANIAL VASCULATURE: The bilateral A1 and M1 segments are widelypatent. The more distal branches of the anterior and middle cerebralarteries also appear patent. The basilar artery is widely patent andterminates in the bilateral chocolate production machine operator. The right BARBER SHOP MANAGER is partially supplied bythe right internal carotid [...] measuring 3.4 cm in diameter. Telerad PA ([id number]) -------- FINAL REPORT -------- Dictated By: Jhoana Chase Dictated Date: 09/26/2024 11:57 ET Assigned Physician: Jhoana Chase Reviewed and Electronically Signed By: Jhoana Chase Signed Date: 09/26/2024 12:06 ET Workstation ID: [id number] Transcribed By: Self Edit Transcribed Date: 09/26/2024 [...] of interpretation on 09/26/24 by secure message ([employer]). Telerad YOUNG ([id number]) A Critical Document Only message has been documented for the office of MARICARMEN HATFIELD in the [employer] system on 09/26/2024 11:45 AM, Message ID [id number]. -------- FINAL REPORT -------- Dictated By: Jhoana Chase Dictated Date: 09/26/2024 11:41 ET Assigned Physician: Jhoana Chase Reviewed and Electronically Signed By: Jhoana Chase Signed Date: 09/26/2024 11:45 ET Workstation ID: [id number] Transcribed By: Self Edit Transcribed Date: 09/26/2024 11:41 ET Narrative 09/26/2024 11:45 AM EDT History: Stroke. Severe headache. Nausea. Altered mental status. Comparison: 09/16/16 Technique: Contiguous axial images were obtained at 2.5 mm intervals through the posterior fossa and at 5 mm intervals through the remainder of the brain without intravenous contrast. DLP: 808.85 mGy/cm GE Royal Pioneerspeed VCT Iterative reconstruction technique Findings: The ventricular [...] without intravenous contrast. DLP: 808.85 mGy/cm GE Royal Pioneerspeed VCT Iterative reconstruction technique Findings: The ventricular [...] time ofinterpretation on 09/26/24 by secure message ([employer]). Telerad YOUNG ([id number]) A Critical Document Only message has been documented for the office ofMARICARMEN HATFIELD in the [employer] system on09/26/2024 11:45 AM, Message ID [id number]. -------- FINAL REPORT -------- Dictated By: Jhoana Chase Dictated Date: 09/26/2024 11:41 ET Assigned Physician: Jhoana Chase Reviewed and Electronically Signed By: Jhoana Chase Signed Date: 09/26/2024 11:45 ET Workstation ID: [id number] Transcribed By: Self Edit Transcribed Date: 09/26/2024 [...] AM EDT Narrative 06/22/2017 1:56 PM EDT [facility] Diagnostic Imaging Department [address] [place] [address] Patient: EDUARDO ENGEL D.O.B./Age/Sex: 1950 - 66 - F Unit#: [id number] Location/Status: SPDIMAM/REG CLI Mnem[facility] Ordering Physician: LITA TORRES MD [facility] Dexa Axial Skeleton - 06/22/17 - 30 [facility] Dexa Axial Skeleton INDICATION: POST MENOPAUSE [...] placing the patient at risk for fracture. [id number] A report detailing these results has been enclosed. Dictating Physician: BEN GASTON MD Electronically Signed by: BEN GASTON MD Dic Date/Time: 06/22/171353 Sign date/Time: 06/22/17 135 Procedure Note Ben Gaston MD - 03/31/2022 [facility] Diagnostic Imaging Department [address] [place] [address] Patient: EDUARDO ENGEL D.O.B./Age/Sex: 1950 - 66 -F Unit#: [id number] Location/Status: SPDIMAM/REG CLI Mnemonic[facility] Ordering Physician: LITA TORRES MD [facility] Dexa Axial Skeleton - 06/22/17 - 729 [facility] Dexa Axial Skeleton INDICATION: POST MENOPAUSE Technique: Bone densitometry was performed utilizing dual energy x-ray absorptiometry (DEXA). The lumbar spine is evaluated in the AP projectionfrom L1 through L4. The proximal femora are evaluated in the AP projection bilaterally. There [facility] Findings: AP spine: Bone mineral density: 0.983 gm/cm2 T-score: -1.5 Femoral total (mean, bilateral): Bone mineral density: 0.704 gm/cm2 T-score: -2.4 Left femoral neck: Bone mineral density: 0.618 gm/cm2 T-score: -3.0 IMPRESSION: Findings suggesting osteoporosis, placing the patient at risk forfracture. [id number] A report detailing these results has been [...] ID:[id number] Group ID:SCO Type:Not on file Address: [place] [address] [place] [id number] Advance Directives * Full Code - Default [...] currently active code status orders. Care Teams Core Rescuer Relationship Specialty Start Date End Date Addi Holland NP [address], [place] PCP - General Family Medicine 03/04/21
--- OUTSIDE RECORDS SUMMARY | 2024-11-24 09:49 | XMS_ITS | Encounter Summary ---
Author Organization [facility] Address [address] [place] [address] Phone Care Team Providers Care Fisheries Officer Name Role Phone Addi Holland NP Primary Care Provider + Encounter Details Date Type Department Care Team (Late st Contact Info) Description 11/02/2023 Procedure Pass [facility] Endoscopy Admitting Dept Virtual Department [address] [place] [address] Social History Tobacco Use Types Packs/Day Years [...] on filedocumented in this encounter Care Teams Fisheries Officer Relationship Specialty Start Date End Date Addi Holland NP [address] [place] [address] PCP - General Nurse Practitioner 02/17/23 documented as of this encounter Additional Source Comments The information contained in this document represents components of the legal health record. It is not the complete legal health record.[facility]
--- OUTSIDE RECORDS SUMMARY | 2024-11-24 09:49 | XMS_ITS | Patient Health Record ---
Author Organization [employer]. Address [address] [place] [address] Care Team Providers Care Mix Mill Tender Name Role Phone Macario Scott Primary Care Provider Allergies Allergen (clinical drug ingredient) Drug/Non Drug Allergy documented on EMR Reaction Allergy Type Onset Date Status tramadol Tramadol rash Drug Allergy Active Results Component Value Reference Range Notes Lipid Panel With LDL/HDL Rat io-LC Reviewed date:04/26/2024 08:51:11 AM Interpretation: Performing Lab[facility] [place] [id number], Phone - [phone], Director - Bree Notes/Report: Cholesterol, Total 232 [...] Reviewed date:04/26/2024 08:51:11 AM Interpretation: Performing Lab:[facility], [address] [place], [place] [id number], Phone - [phone], Director - Bree Notes/Report: Glucose 94 70-99 [...] IU/L ALT (SGPT) 10 0-32 IU/L Urinalysis, Yyycuyko-RA-M Reviewed date:04/26/2024 08:51:11 AM Interpretation: Performing Lab:[facility], [address] [place] [id number], Phone - [phone], Director - Bree Notes/Report: Specific [place] 1.016 1.005-1.030 pH 7.0 5.0-7.5 Urine-Color Yellow [...] Reviewed date:04/26/2024 08:51:11 AM Interpretation: Performing Lab:[facility], [facility] [place] [id number], Phone - [phone], Director - Bree Notes/Report: WBC 5.5 3.4-10.8 [...] Ur-LC Reviewed date:04/26/2024 08:51:11 AM Interpretation: Performing Lab:[facility] [address] [id number], Phone - [phone], Director - MDShanita Notes/Report: Ur.Collec. Interval 0 [...] T4 Reviewed date:04/26/2024 08:51:11 AM Interpretation: Performing Lab:[address] [id number], Phone - [phone], Director - MDShanita Notes/Report: TSH 3.730 0.450-4.500 uIU/mL TSH reflex to T4 Reviewed date:03/31/2024 08:44:59 AM Interpretation: Performing Lab:[facility] [address] [id number], Phone - [phone], Director - MDKostasrier Notes/Report: TSH 1.770 0.450-4.500 uIU/mL EKG Electrocardiogram Reviewed date:03/24/2024 02:15:49 PM Interpretation: Performing Lab: Notes/Report: Lipid Panel-Q-LC Reviewed date:03/31/2024 08:45:24 AM Interpretation: Performing Lab:[address] [id number], Phone - [phone], Director - MDFarrier Notes/Report: Cholesterol, Total 222 100-199 mg/dL Triglycerides 65 0-149 mg/dL HDL Cholesterol 76 >39 mg/dL VLDL Cholesterol Koby 11 5-40 mg/dL LDL Chol Calc (NIH) 135 0-99 mg/dL Comprehensive Metabolic Pane l 14+eGFR-LC-Q Reviewed date:03/31/2024 08:45:20 AM Interpretation: Performing Lab:[address] [id number], Phone - [phone], Director - MDFarrier Notes/Report: Glucose 82 70-99 [...] IU/L ALT (SGPT) 9 0-32 IU/L Urinalysis, Qinwszek-JX-F Reviewed date:03/31/2024 08:45:17 AM Interpretation: Performing Lab:[address] [id number], Phone - [phone], Director - Bree Notes/Report: Specific [place] 1.020 1.005-1.030 pH 7.0 5.0-7.5 Urine-Color Yellow [...] et-LC-Q Reviewed date:03/31/2024 08:45:13 AM Interpretation: Performing Lab:[facility], [address] [place] [id number], Phone - [phone], Director - Bree Notes/Report: WBC 7.0 3.4-10.8 [...] Reviewed date:03/31/2024 08:45:06 AM Interpretation: Performing Lab:[facility] [id number], Phone - [phone], Director - Bree Notes/Report: Creatinine, Urine 122.7 Not Estab. mg/dL Albumin, Urine 12.5 Not Estab. ug/mL Alb/Creat Ratio 10 0-29 mg/g creat Normal: 0 - 29 Moderately increased: 30 - 300 Severely increased: >300 Occult Blood, Fecal, IA-LAB [facility]NON Reviewed date:03/31/2024 08:45:03 AM Interpretation: Performing Lab:[facility] [id number], Phone - [phone], Director - Bree Notes/Report: Occult Blood, Fecal, IA Negative Negative Cardiovascular Risk Assessme nt Reviewed date:04/26/2024 08:51:11 AM Interpretation: Performing Lab:[facility], [address] [place] [id number], Phone - [phone], Director - Bree Notes/Report: Interpretation Note Supplemental report is available. PDF . Cardiovascular Risk Assessme nt Reviewed date:04/06/2024 12:00:17 PM Interpretation: Performing Lab:[facility], [address] [place] [id number], Phone - [phone], Director - Bree Notes/Report: Interpretation Note Supplemental report is available. PDF . Occult Blood, Fecal, IA-LAB BR[facility]NON Reviewed date:05/04/2024 04:08:08 PM Interpretation: Performing Lab:[facility], [address] [place] [id number], Phone - [phone], Director - Bree Notes/Report: Occult Blood, Fecal, IA Negative Negative Reason For Referral Reason If additional kathy ting is needed, please refer back to PCP. Please fax consult notes and/or results of procedure approved to [phone]. Thanks! ~Annual Eye Exam~ Diagnosis 1 Encounter for examin ation of eyes and vision without abnormal findings (Z01.00) [facility] Referring Provider First Name Macario Referring Provider Last Name Tyler Referring Provider Speciality General Pr actice Referred Provider [employer] Referred Provider Specialty Satellite Dish Technician Referral Priority Routine Reason Please fax consul t notes and/or results of procedure approved to [phone]. Thanks! CONSULT ONLY - MANAGED CARE ~Annual Eye Exam~ Diagnosis 1 Encounter for examin ation of eyes and vision without abnormal findings (Z01.00) [facility] Referring Provider First Name Macario Referring Provider Last Name Tyler Referring Provider Speciality General Pr actice Referred Provider [employer] Referred Provider Specialty Satellite Dish Technician Referral Priority Routine Medications Medication SIG (Take, [...] W/U Status Risk Notes Problem Mixed hyperlipidemia (992502755) Mixed hyperlipidemia (E78.2) Active confirmed Problem Chronic kidney disease due to hypertension (784899853509722) Hypertensive chronic kidney disease with stage 1 through stage 4 chronic kidney disease, or unspecified chronic kidney disease (I12.9) Active confirmed Problem Fibromyalgia (222103692) Fibromyalgia (M79.7) Active confirmed Problem Chronic insomnia (330843691) Chronic insomnia (F51.04) Active confirmed Problem Vertigo (353677731) Vertigo (R42) Active confirmed Problem Acquired hypothyroidism (714237062) Acquired hypothyroidism (E03.9) Active confirmed Problem Migraine (81571389) Migraine syndrome (G43.909) Active confirmed Problem Chronic kidney disease stage 2 (697511323) CKD (chronic kidney disease), stage II (N18.2) Active confirmed GFR 75 as per lab results from Problem Former smoker (6767302) Former smoker (Z87.891) Active confirmed Problem Moderate recurrent major depression (68188423) 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) Active confirmed Problem Uncomplicated severe persistent asthma (669267586) Severe persistent asthma without complication (J45.50) Active [...] N/A Encounters Encounter Location Date Provider Diagnosis [facility] [address] [address] 03/24/2024 Macario Scott [facility] [address] [facility] [address] [place] [address] 03/24/2024 Macario Scott [facility] [address] [facility] [address] [place] [address] 03/31/2024 Macario Scott [facility] [address] [facility] [address] [place] [address] 04/24/2024 Macario Scott Essential (primary) hypertension I10 ; Mixed hyperlipidemia E78.2 and Acquired hypothyroidism E03.9 [facility] [address] [facility] [address] [place] [address] 03/24/2024 Macario Scott Essential (primary) hypertension I10 [...] eyes and vision without abnormal findings Z01.00 [place] [address] [place] [address] 03/31/2024 Macario Scott Hypertensive chronic kidney disease [...] of 25.0 to 25.9 in adult Z68.25 [facility] [address] [facility] [address] [place] [address] 05/02/2024 Macario Scott Severe persistent asthma without [...] Comprehensive Metabolic Panel 14+eGFR-LC -Q 05/02/2024 Urinalysis, Gjppvxiq-PX-H 05/02/2024 CBC With Differential/Ultkdatc-AL-G 04/13 Mammo SCREENING MAMMO DIGITAL, SOHEILA 05/02 Mammo SCREENING MAMMO DIGITAL, SOHEILA 03/24 CHEST X-RAY (PA/LATERAL) 03/24/2024 CHEST X-RAY (PA/LATERAL) 05/02/2024 Future Test Test Name Order Date Lipid Panel With LDL/HDL Ratio-LC 2024 Comprehensive Metabolic Panel 14+eGFR-LC -Q 09/25/2024 Urinalysis, Gycghdkn-LU-R 09/25/2024 CBC With Differential/Bkokbdvm-UG-P 09/10 Insurance Providers Payer Name Payer Address Payer Phone Subscriber Number Group Number Insured Name Patient Relationship to Insured Coverage Start Date Coverage End Date [facility] [address] [address] [place] [phone] [id number] [facility] [place] [place] Self - patient is the insured Medical (General) History Medical History History ICD Code hyperension asthma sinusitis migraines thyroid Surgical History Surgery Date(Month/Year) hystrectomy total 1996 right leg n/a nose n/a carpal tunel on both hands n/a
== END 2024-11-24 09:42 | disposition home or self-care (01) ==
LOC: HO.XRAY 09:41
PROVIDERS: Visit Provider Internal Medicine
DX: Z98.84 Bariatric surgery status (principal)
CPT/HCPCS: 74246

== ENCOUNTER → 2024-11-24 09:43 | Outpatient (BNV) | payer OTHER, SELFPAY | PROVIDERS: Visit Provider Radiology Diagnostic Radiology | DX: K44.9 Diaphragmatic hernia without obstruction or gangrene (principal) | CPT/HCPCS: 74246 ==

== ENCOUNTER 2024-11-29 10:46 | Outpatient (AMB) | payer OTHER, SELFPAY ==
--- OUTSIDE RECORDS SUMMARY | 2024-04-04 04:30 | XMS_ITS ---
Author Organization [facility] Address [address] [place] [address] Care Team Providers Care Director Of Pediatric Rehabilitation Name Role Phone AUTUMN PADILLA Primary Care Provider [phone] REASON FOR VISIT follow up labs + MMSE Encounters Encounter Location Date Provider Diagnosis [facility] [address] [place] [address] 04/04/2024 AUTUMN BEASLEY Plan Of Treatment No Information Progress Notes * JONAH Marie JORGEDO B:1950 (74 yo F)Acc No.[id number]:04/04/2024 Progress Notes Patient: Marie DUVAL Provider: Lawson BEASLEY MD :1950 A ge:73 Y S ex:Female Date:04/04/2024 Phone: Address:[address] [place], [place] [phone] Structured Data:Consent to r eceive voicemail/text messages? : YES Subjective: * Chief Complaints: * 1 . follow up labs + MMSE. * Medical History: Objective: * Vitals: Assessment: Plan: * Treatment: * Billing Information: * Visit Code: * Procedure Codes: * Electronic signature of AUTUMN BEASLEY MD on 11/29/2024 at 12:07 PM EDT Sign off status: Pending * Provider: Lawson BEASLEY MD Date: 06/05/2023 Generated for Printi ng/Faxing/eTransmitting on: 0 11/29/2024 12:07 PM EDT
--- NOTE | 2024-11-29 10:55 | A.OFFVIS_ITS ---
VS Expanded 11/29/24 11:14 BP 142/84 H Blood Pressure Location Rt brachial Blood Pressure Position Sitting Pulse 73 Pulse Source Pulse Oximeter Temp 96.2 F L Temperature Source Temporal Artery Scan Pulse Oximetry 99 Oxygen Delivery Method Room Air Height 5 ft 2 in Weight 139 lb 3.2 oz BMI 25.5 Body Fat % 29.8 Body Fat Mass 1.4 Fat Free Mass 97.6 Visceral Fat Rating 8.0 Body Water % 49.3 Body Water Mass 68.6 Muscle Mass/Score 92.6 Basal Metabolic Rate/Score 1,300 Intake Visit Reasons: (OV) PO LSG 06/16/23 Allergies tramadol Allergy (Severe, Verified 11/13/24 09:58) Itching Medication List - Last Reconciled 11/29/24 by YOUNG Goins acetaminophen-codeine 300-30 mg 1 tab PO Q12H PRN atenolol 50 mg PO DAILY Held on 06/18/23. Instructions: Resume on 06/19/23. Check your blood pressure every morning as soon as you wake up and send it to Dr. Alberto. Do no take the blood pressure medication if the blood pressure is below 120/70. Wait every day to hear back from Dr. Alberto before you take the medication. mamegkxwjw-ggxmnivucratn-rmiy 50-300-40 mg (Fioricet) 2 caps PO Q8H PRN [chair lift daily use NS] cyclobenzaprine 5 mg PO BEDTIME PRN hospital bed daily lorazepam (Ativan) 1 mg PO ONCE miscellaneous medical supply daily use, ECO-Patch Reusable self adhesive electrodes for TENS FES/NMES ondansetron 4 mg PO Q8H PRN ondansetron 4 mg PO Q8H PRN rizatriptan take 1 tab at onset of headache; if no relief may repeat 1 tab after at least 2 hrs; max = 3 tabs/24 hr PO trazodone 150 mg PO BEDTIME HPI Comments Details: This?is a?73?yo F who is s/p LSG 06/16/2023. Presents for 14 month post op visit. Weight at last visit in August 2024 was 152 pounds; weight today is 139.2 pounds, representing a 12.8 pound weight loss with a BMI today of 25.5.? At last visit, reported some abdominal discomfort when she takes in anything . Even if it eat a little bit it feels like I eat a lot. No vomiting. Overall these symptoms have been getting better. The discomfort resolves on its own within a half hour. This happens even with water/liquids. Did have reflux prior to surgery, has been better since then, and this does not feel like reflux. Ordered UGI with results below. Present meal plan includes: eats 2x/day, includes meat/eggs, tries to make sure foods are high in protein however does eat rice sometimes occasionally will incorporate shake or bar taking antonia MVI Exercise routine includes: walks outside- has been walking more has light weights at home 2-3lb weights Pt reports excess skin of the abdomen. She has experienced itchy rashes in the skin fold. Has tried OTC creams without relief. She notices sweat collecting in the fold, has to clean more frequently than normal to try to prevent rashes. Has to wear supportive clothing to hold the excess skin in place, tight waistbands. She notices discomfort when performing activities of daily living such as walking which is more uncomfortable due to excess skin getting in the way. Pt reports excess skin of the upper arms. She is experiencing chafing when skin rubs against the torso. She has to wear loose sleeves at all times to accommodate the excess. The weight of the excess skin causes additional discomfort to her preexisting shoulder issues and it is difficult to lift her arm over her head due to discomfort from the weight of it. [facility] Medical History Insomnia PONV (postoperative nausea and vomiting) GERD (gastroesophageal reflux disease) Oropharyngeal dysphagia Gastritis Migraines Dyslipidemia Hypothyroidism Osteoporosis Anxiety Essential hypertension Surgical History History of shoulder surgery History of section History of nasal surgery History of surgery History of carpal tunnel surgery History of neck surgery Family History Father Cancer of prostate Mother HTN (hypertension) Maternal Grandmother Stroke Asthma Brother Substance use disorder Social History Household Members: Spouse Caregiver staying overnight: No Housing: Apartment Are you a primary behavioral health care coordinator to a significant other at home: Yes (, he also has a PROMOTIONAL MARKETING ANALYST) Do you presently have 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 or other home services: No 75 years or older and lives alone: No Alcohol intake: never Patient Tobacco Use Status: Former Tobacco user Tobacco use type: Cigarette e-Cigarette/Vaping Use: Never Used Second Hand Smoke Exposure: No service: No Current occupational status: retired Cognitive needs: No Hearing needs: No Vision needs: No Results Reviewed Results Reviewed: UGI 11/24/2024 IMPRESSION: Small caliber stomach with fast transition of barium seen through the stomach into the small bowel. Small hiatal hernia without reflux. Normal peristalsis in the esophagus with no obstruction narrowing. No major change compared to 12/10/2022 except for normal peristalsis of the esophagus. Assessment & Plan Assessment & Plan (1) Overweight: Code(s): E66.3 - Overweight Category: Medical (2) S/P laparoscopic sleeve gastrectomy: Comment: june 2023 Code(s): Z98.84 - Bariatric surgery status Category: Surgical Plan Trial of pantoprazole and carafate for her abdominal pain. I do think much of it is related to the way she eats and foods she chooses (tolerates most liquids and yogurt ok) so we discussed improved eating habits to decrease the chance of pain. Gave pt CasualingI terrance info and encouraged her to follow a plan for this. She is experiencing issues of excess skin of both arms and abdomen. Trial of clotrimazole ointment. RTC 6-8 weeks to monitor issues of excess skin. Medications: New pantoprazole 40 mg PO DAILY 90 tabs 3RF sucralfate (Carafate) 10 mL PO BID 414 mL 0RF clotrimazole 1% 1 appl topical BID 45 grams 3RF
[2024-11-29 11:14] VITALS: BP 142/84; PULSE 73; TEMP 35.7; O2SAT 99; BMI 25.5
--- OUTSIDE RECORDS SUMMARY | 2024-11-29 12:07 | XMS_ITS | Encounter Summary ---
Author Organization [facility] Address [address] [place] [address] Phone Care Team Providers Care Dulser Name Role Phone Addi Holland NP Primary Care Provider + Encounter Details Date Type Department Care Team (Late st Contact Info) Description 11/02/2023 Procedure Pass [facility] Endoscopy Admitting Dept Virtual Department [address] [place] [address] Social History Tobacco Use Types Packs/Day Years [...] on filedocumented in this encounter Care Teams Dulser Relationship Specialty Start Date End Date Addi Holland NP [address] [place] [address] PCP - General Nurse Practitioner 02/17/23 documented as of this encounter Additional Source Comments The information contained in this document represents components of the legal health record. It is not the complete legal health record.[facility]
--- OUTSIDE RECORDS SUMMARY | 2024-11-29 12:07 | XMS_ITS | Clinical Summary ---
Author Organization [facility] Address [address] [place] [address] Phone Care Team Providers Care Mounter Saxophones Name Role Phone Addi Holland NP Primary [...] - 10/02/2024 11:59 PM EDT Hospital Encounter [facility] Neurodiagnostic [address] [place] [address] Myopathy Discharge Disposition: Home or Self Care 09/26/2024 11:04 AM EDT - 09/29/2024 4:43 PM EDT Hospital Encounter [facility] Urology Unit [address] [place] [address] Maricarmen Hatfield DO [place], Gary [...] TUNNEL REL UPPER GASTROINTESTINAL ENDOSCOPY 08/18/2016 PROCEDURE: AK UPPER GI ENDOSCOPY PERFORMED; COMMENT: Erosive gastritis, [...] your loved ones. For example, child care leader or elderly care for an older adult? [...] result were not included. [facility] [address] [place] [address] Electromyograph Report Date of service: 10/02/24 Patient [...] note were not included. [facility] [address] [place] [address] Electromyograph Report Date of service: 10/02/24 Patient [...] 2. No active pulmonary process. Telerad YOUNG ([id number]) -------- FINAL REPORT -------- Dictated By: Jhoana Chase Dictated Date: 10/01/2024 10:10 ET Assigned Physician: Jhoana Chase Reviewed and Electronically Signed By: Jhoana Chase Signed Date: 10/01/2024 10:12 ET Workstation ID: [id number] Transcribed By: Self Edit Transcribed Date: 10/01/2024 [...] 2. No active pulmonary process. Teleenio VIDAL ([id number]) -------- FINAL REPORT -------- Dictated By: Jhoana Chase Dictated Date: 10/01/2024 10:10 ET Assigned Physician: Jhoana Chase Reviewed and Electronically Signed By: Jhoana Chase Signed Date: 10/01/2024 10:12 ET Workstation ID: [id number] Transcribed By: Self Edit Transcribed Date: 10/01/2024 10:10 ET Katelyn VIDAL IMG XR PROCEDURES Final R esult * Lavender tube (09/29/2024 5:58 AM EDT) Only the most recent of2 resultswithin the time period is included. [facility] Extra Tube Hold for add-ons. 10/02/2024 9:01 AM EDT [facility] Comment:Auto resulted. Blood Venous blood specimen / Unknown Venipuncture / Unknown 09/29/2024 5:58 AM EDT 09/29/2024 6:17 AM EDT Yuval Lake MD LAB BLOOD ORDERABLES F inal Result [facility] [address] [place] [address], [place] [phone] * Magnesium (09/29/2024 5:58 AM EDT) Only the most recent of2 resultswithin the time period is included. [facility] Magnesium 2.1 1.9 - 2.6 mg/dL LAB CHEMISTRY METHOD 09/29/2024 7:05 AM EDT [facility] Blood Venous blood specimen / Unknown Venipuncture / Unknown 09/29/2024 5:58 AM EDT 09/29/2024 6:12 AM EDT [facility] LAB BLOOD ORDERABLES Hoa l Result Performing Organization Address City/[facility]/ZIP Co de Phone Number [facility] [address] [place] [address], [place] [phone] * (ABNORMAL) Creatine kinase (09/29/2024 5:58 AM EDT) Only the most recent of3 resultswithin the time period is included. Pathologist [facility] Total CK 1,852(H) 22 - 269 unit/L LAB CHEMISTRY METHOD 09/29/2024 7:24 AM EDT [facility] Blood Venous blood specimen / Unknown Venipuncture / Unknown 09/29/2024 5:58 AM EDT 09/29/2024 6:12 AM EDT [facility] LAB BLOOD ORDERABLES Hoa l Result Performing Organization Address [facility] Co de Phone Number [facility] [address] [place] [address], [place] [phone] * (ABNORMAL) Basic metabolic panel (09/29/2024 5:58 AM EDT) Only the most recent of3 resultswithin the time period is included. Sodium 137 133 - 145 mmol/L LAB CHEMISTRY METHOD 09/29/2024 7:05 AM EDT [facility] Potassium 4.3 3.5 - 5.5 mmol/L LAB CHEMISTRY METHOD 09/29/2024 7:05 AM EDT [facility] Chloride 100 96 - 110 mmol/L LAB CHEMISTRY METHOD 09/29/2024 7:05 AM [facility] CO2 33(H) 21 - 32 mmol/L LAB CHEMISTRY METHOD 09/29/2024 7:05 AM [facility] Anion Gap 4 3 - 11 LAB CHEMISTRY METHOD 09/29/2024 7:05 AM [facility] Glucose 101(H) 70 - 100 mg/dL LAB CHEMISTRY METHOD 09/29/2024 7:05 AM [facility] BUN 17 5 - 25 mg/dL LAB CHEMISTRY METHOD 09/29/2024 7:05 AM [facility] Creatinine 0.76 0.50 - 1.10 mg/dL LAB CHEMISTRY METHOD 09/29/2024 7:05 AM [facility] eGFR 83 >=60 mL/min/1. 73m2 LAB CHEMISTRY METHOD 09/29/2024 7:05 AM [facility] Comment:Calculation based on the Chronic Kidney Disease Epidemiology Collaboration (CKD-EPI) equation refit without adjustment for race. BUN/Creatinine Ratio 22.4 LAB CHEMISTRY METHOD 09/29/2024 7:05 AM [facility] Calcium 9.2 8.5 - 10.5 mg/dL LAB CHEMISTRY METHOD 09/29/2024 7:05 AM [facility] Blood Venous blood specimen / Unknown Venipuncture / Unknown 09/29/2024 5:58 AM EDT 09/29/2024 6:12 AM EDT us Katelyn VIDAL LAB BLOOD ORDERABLES Hoa l Result [facility] [address] [place] [address], * XR Hip 1 View Left (09/28/2024 [...] Signed Date: 09/28/2024 12:51 ET Workstation ID: [id number] Transcribed By: Self Edit Transcribed Date: 09/28/2024 [...] Signed Date: 09/28/2024 12:51 ET Workstation ID: [id number] Transcribed By: Self Edit Transcribed Date: 09/28/2024 12:48 ET Katelyn VIDAL IMG XR PROCEDURES Final R esult * Phosphorus (09/28/2024 6:01 AM EDT) [facility] Phosphorus 3.1 2.5 - 4.5 mg/dL LAB CHEMISTRY METHOD 09/28/2024 7:56 AM EDT [facility] Blood Venous blood specimen / Unknown Venipuncture / Unknown 09/28/2024 6:01 AM EDT 09/28/2024 6:24 AM EDT Katelyn VIDAL LAB BLOOD ORDERABLES Hoa chavez Result [facility] [address] [place] [address], * (ABNORMAL) Comprehensive metabolic panel (09/28/2024 6:01 AM EDT) Sodium 135 133 - 145 mmol/L LAB CHEMISTRY METHOD 09/28/2024 7:56 AM [facility] Potassium 3.6 3.5 - 5.5 mmol/L LAB CHEMISTRY METHOD 09/28/2024 7:56 AM [facility] Chloride 97 96 - 110 mmol/L LAB CHEMISTRY METHOD 09/28/2024 7:56 AM [facility] CO2 32 21 - 32 mmol/L LAB CHEMISTRY METHOD 09/28/2024 7:56 AM [facility] Anion Gap 6 3 - 11 LAB CHEMISTRY METHOD 09/28/2024 7:56 AM [facility] Glucose 98 70 - 100 mg/dL LAB CHEMISTRY METHOD 09/28/2024 7:56 AM [facility] BUN 17 5 - 25 mg/dL LAB CHEMISTRY METHOD 09/28/2024 7:56 AM [facility] Creatinine 0.69 0.50 - 1.10 mg/dL LAB CHEMISTRY METHOD 09/28/2024 7:56 AM [facility] eGFR 92 >=60 mL/min/1. 73m2 LAB CHEMISTRY METHOD 09/28/2024 7:56 AM [facility] Comment:Calculation based on the Chronic Kidney Disease Epidemiology Collaboration (CKD-EPI) equation refit without adjustment for race. BUN/Creatinine Ratio 24.6 LAB CHEMISTRY METHOD 09/28/2024 7:56 AM [facility] Calcium 9.4 8.5 - 10.5 mg/dL LAB CHEMISTRY METHOD 09/28/2024 7:56 AM EDT [facility] AST (SGOT) 77(H) 10 - 42 unit/L LAB CHEMISTRY METHOD 09/28/2024 7:56 AM T [facility] ALT (SGPT) 30 10 - 60 unit/L LAB CHEMISTRY METHOD 09/28/2024 7:56 AM [facility] Alkaline Phosphatase 69 42 - 121 unit/L LAB CHEMISTRY METHOD 09/28/2024 7:56 AM T [facility] Total Protein 6.0 6.0 - 8.0 g/dL LAB CHEMISTRY METHOD 09/28/2024 7:56 AM [facility] Albumin 3.4 3.2 - 5.0 g/dL LAB CHEMISTRY METHOD 09/28/2024 7:56 AM [facility] Total Bilirubin 0.5 0.0 - 1.4 mg/dL LAB CHEMISTRY METHOD 09/28/2024 7:56 AM [facility] Blood Venous blood specimen / Unknown Venipuncture / Unknown 09/28/2024 6:01 AM EDT 09/28/2024 6:24 AM EDT Katelyn VIDAL LAB BLOOD ORDERABLES Hoa l Result [facility] [address] [place] [address], * (ABNORMAL) Drug abuse screen 8a panel, urine (09/27/2024 4:23 PM EDT) Amphetamine Screen, Ur Negative Negative LAB CHEMISTRY METHOD 7:18 PM EDT [facility] Comment:Certain OTC medicati ons containing ephedrine, phenylephrine, pseudoephedrine and phenylpropanolamine can cause false positive results. Barbiturate Screen, Ur Negative Negative LAB CHEMISTRY METHOD 7:18 PM EDT [facility] Benzodiazepine Screen, Ur Negative Negative LAB CHEMISTRY METHOD 5 7:18 PM EDT [facility] Cocaine Screen, Ur Negative Negative LAB CHEMISTRY METHOD 5 7:18 PM EDT [facility] Opiate Screen, Ur Positive(A ) Negative LAB CHEMISTRY METHOD 5 7:18 PM EDT [facility] Cannabinoid (THC) Screen, Ur Negative Negative LAB CHEMISTRY METHOD 5 7:18 PM EDT [facility] Comment:Specimens from patie nts taking pantoprazole sodium (Protonix) have been shown to produce false positive results. Oxycodone Screen, Ur Negative Negative LAB CHEMISTRY METHOD 5 7:18 PM EDT [facility] Fentanyl, Ur Negative Negative LAB CHEMISTRY METHOD 5 7:18 PM EDT [facility] Urine Urine specimen obtained by clean catch procedure / Unknown Non-blood Collection / Unknown 09/27/2024 4:23 PM EDT 09/27/2024 6:30 PM EDT Narrative [facility] - 09/27/2024 7:18 PM EDT [...] VIDAL LAB URINE ORDERABLES Hoa chavez Result [facility] [address] [place] [address], * (ABNORMAL) Aldolase (09/27/2024 1:41 PM EDT) Aldolase 20.6(H) 1.2 - 7.6 U/L 10/03/2024 9:54 AM EDT [facility] Comment: Test performed at [facility], [address], [place] [address] Alisha Jesus MD, PhD - Recooperer Blood Venous blood specimen / Unknown Venipuncture / Unknown 09/27/2024 1:41 PM EDT 09/27/2024 2:09 PM EDT us Katelyn Potts PA LAB BLOOD ORDERABLES Hoa l Result [facility] [address] [place] [address] * (ABNORMAL) TRANSTHORACIC ECHOCARDIOGRAM (TTE) COMPLETE (09/27/2024 1:21 PM EDT) Left Atrium Minor Madison 5.3 cm CV PACS Left Atrium Major Madison 5.3 cm CV PACS LA Area Sys [...] Volume 64 mL CV PACS MV Deceleration Th[place]morton 4.0 m/s2 CV PACS E Wave Deceleration [...] LAB CHEMISTRY METHOD 09/27/2024 11:02 AM EDT [facility] Blood Venous blood specimen / Unknown Venipuncture / Unknown 09/27/2024 10:20 AM EDT 09/27/2024 10:26 AM EDT Narrative [facility] - 09/27/2024 11:02 AM EDT High levels of biotin in samples may falsely decrease hsTroponin values. Use caution when interpreting hsTroponin results in patients taking biotin who exhibit renal impairment (eGFR <60) or in patients taking more than 20 mg/day of biotin. Katelyn VIDAL LAB BLOOD ORDERABLES Hoa chavez Result [facility] [address] [place] [address], [place] [phone] * (ABNORMAL) Lipid panel with reflex to direct LDL (09/27/2024 10:20 AM EDT) Only the most recent of2 resultswithin the time period is included. Cholesterol 234(H) 0 - 200 mg/dL LAB CHEMISTRY METHOD 09/27/2024 12:46 PM EDT [facility] Triglycerides 71 0 - 150 mg/dL LAB CHEMISTRY METHOD 09/27[facility]24 [facility] HDL 79 >=40 mg/dL LAB CHEMISTRY METHOD 09/27/2024 12:46 PM [facility] LDL Calculated 141(H) 0 - 100 mg/dL LAB CHEMISTRY METHOD 09/27/2024 12:[facility] VLDL Cholesterol Koby 14.2 mg/dL LAB CHEMISTRY METHOD 09/27/2024 12:46 PM [facility] Non HDL Chol. (LDL+VLDL) 155(H) <145 mg/dL LAB CHEMISTRY METHOD 09/27/2024 12:[facility] Chol/HDL Ratio 3.0 0.0 - 4.4 LAB CHEMISTRY METHOD 09/27/2024 12:46 PM [facility] Blood Venous blood specimen / Unknown Venipuncture / Unknown 09/27/2024 10:20 AM EDT 09/27/2024 10:25 AM EDT Katelyn MeaghandarshanKieran [place] LAB BLOOD ORDERABLES Hoa l Result [facility] [address] [place] [address], [place] [phone] * Sedimentation rate (09/27/2024 10:20 AM EDT) Sed Rate 23 0 - 30 mm/hr LAB HEMETOLOGY METHOD 09/27/2024 10:39 AM EDT [facility] Blood Venous blood specimen / Unknown Venipuncture / Unknown 09/27/2024 10:20 AM EDT 09/27/2024 10:25 AM EDT Simbagloria Katlyn [place] LAB BLOOD ORDERABLES Hoa l Result Performing Organization Address [facility]/ZIP Co de Phone Number [facility] [address] [place] [address], * C reactive protein, high sensitivity (09/27/2024 10:20 AM EDT) CRP, High Sensitivity 21.90 mg/L LAB CHEMISTRY METHOD 09/27/2024 11:35 AM EDT [facility] Comment: Cardio CRP Relative Risk [...] MD LAB BLOOD ORDERABLES Final Resul t [facility] [address] [place] [address], * (ABNORMAL) Lipase (09/27/2024 10:20 AM EDT) Pathologist [facility] Lipase 12(L) 13 - 75 unit/L LAB CHEMISTRY METHOD 09/27/2024 10:57 AM EDT [facility] Blood Venous blood specimen / Unknown Venipuncture / Unknown 09/27/2024 10:20 AM EDT 09/27/2024 10:25 AM EDT Katelyn VIDAL LAB BLOOD ORDERABLES Hoa l Result Performing Organization Address City/[facility]/ZIP Co de Phone Number [facility] [address] [place] [address], * (ABNORMAL) Hepatic function panel (09/27/2024 10:20 AM EDT) Pathologist [facility] Total Protein 6.8 6.0 - 8.0 g/dL LAB CHEMISTRY METHOD 09/27/2024 10:57 AM EDT [facility] Albumin 3.8 3.2 - 5.0 g/dL LAB CHEMISTRY METHOD 09/27/2024 10:57 AM EDT [facility] Total Bilirubin 0.5 0.0 - 1.4 mg/dL LAB CHEMISTRY METHOD 09/27/2024 10:57 AM EDT [facility] Bilirubin, Direct 0.1 0.0 - 0.3 mg/dL LAB CHEMISTRY METHOD 09/27/2024 10:57 AM EDT [facility] Bilirubin, Indirect 0.4 0.0 - 1.1 mg/dL LAB CHEMISTRY METHOD 09/27/2024 10:57 AM EDT [facility] ALT (SGPT) 32 10 - 60 unit/L LAB CHEMISTRY METHOD 09/27/2024 10:57 AM EDT [facility] AST (SGOT) 86(H) 10 - 42 unit/L LAB CHEMISTRY METHOD 09/27/2024 10:57 AM EDT [facility] Alkaline Phosphatase 78 42 - 121 unit/L LAB CHEMISTRY METHOD 09/27/2024 10:57 AM EDT [facility] Blood Venous blood specimen / Unknown Venipuncture / Unknown 09/27/2024 10:20 AM EDT 09/27/2024 10:25 AM EDT Katelyn VIDAL LAB BLOOD ORDERABLES Hoa l Result Performing Organization Address City/[facility]/ZIP Co de Phone Number [facility] [address] [place] [address], [place] [phone] * ECG 12 lead (09/27/2024 10:00 AM EDT) Only the most recent of2 resultswithin the time period is included. Ventricular Rate ECG 66 BPM GEMUSE Atrial Rate 66 BPM GEMUSE P-R Interval 146 ms GEMUSE QRS Duration 86 ms GEMUSE Q-T Interval 392 ms GEMUSE QTc 410 ms GEMUSE P Wave Madison 47 degrees GEMUSE R Madison -6 degrees GEMUSE T Madison 19 degrees GEMUSE ECG Interpretation Normal sinus [...] Hold for add-ons. 09/27/2024 10:01 AM EDT [facility] Comment:Auto resulted. Blood Venous blood specimen / Unknown 09/27/2024 8:11 AM EDT 09/27/2024 8:17 AM EDT us Yuval Lake MD LAB BLOOD ORDERABLES F inal Result Performing Organization Address [facility]/ZIP Co de Phone Number [facility] [address] [place] [address], [place] [phone] * JAIME IFA with titer and pattern (09/27/2024 8:11 AM EDT) [facility] JAIME Negative Negative 09/27/2024 2:53 PM EDT [facility] Blood Venous blood specimen / Unknown 09/27/2024 8:11 AM EDT 09/27/2024 8:17 AM EDT Katelyn VIDAL LAB BLOOD ORDERABLES Hoa l Result Performing Organization Address [facility] Co de Phone Number [facility] [address] [place] [address], [place] [phone] * (ABNORMAL) B-type natriuretic peptide (09/27/2024 8:11 AM EDT) [facility] BNP 120(H) <=100 pcg/mL LAB CHEMISTRY METHOD 09/27/2024 8:59 AM EDT [facility] Blood Venous blood specimen / Unknown Venipuncture / Unknown 09/27/2024 8:11 AM EDT 09/27/2024 8:16 AM EDT Katelyn VIDAL LAB BLOOD ORDERABLES Hoa l Result Performing Organization Address City/[facility]/ZIP Co de Phone Number [facility] [address] [place] [address], [place] [phone] * (ABNORMAL) Creatine kinase and CKMB (09/27/2024 8:11 AM EDT) [facility] Total CK 3,151(H) 22 - 269 unit/L LAB CHEMISTRY METHOD 09/27/2024 9:49 AM EDT [facility] Comment:Results verified by repeat testing CK-MB 6.1(H) 1.0 - 3.6 ng/mL LAB CHEMISTRY METHOD 09/27/2024 9:49 AM EDT [facility] CK-MB Index 0.0 0.0 - 5.0 LAB CHEMISTRY METHOD 09/27/2024 9:49 AM EDT [facility] Blood Venous blood specimen / Unknown 09/27/2024 8:11 AM EDT 09/27/2024 8:17 AM EDT Katelyn Potts [place] LAB BLOOD ORDERABLES Hoa chavez Result [facility] [address] [place] [address], [place] [phone] * (ABNORMAL) Complete blood count (09/27/2024 6:19 AM EDT) [facility] WBC 7.8 4.8 - 10.8 K/mcL LAB HEMETOLOGY METHOD 09/27/2024 6:50 AM EDT [facility] RBC 3.80 3.80 - 4.80 M/mcL LAB HEMETOLOGY METHOD 09/27/2024 6:50 AM EDT [facility] Hemoglobin 10.4(L) 11.5 - 16.0 g/dL LAB HEMETOLOGY METHOD 09/27/2024 6:50 AM EDT [facility] Hematocrit 33.4(L) 35.0 - 47.0 % LAB HEMETOLOGY METHOD 09/27/2024 6:50 AM EDT [facility] MCV 87.4 79.0 - 98.0 FL LAB HEMETOLOGY METHOD 09/27/2024 6:50 AM EDT [facility] MCH 27.2 27.0 - 32.0 pcg LAB HEMETOLOGY METHOD 09/27/2024 6:50 AM EDT [facility] MCHC 31.1(L) 32.0 - 37.0 g/dL LAB HEMETOLOGY METHOD 09/27/2024 6:50 AM EDT [facility] RDW 13.9 11.0 - 15.0 % LAB HEMETOLOGY METHOD 09/27/2024 6:50 AM EDT [facility] Platelets 208 130 - 400 K/mcL LAB HEMETOLOGY METHOD 09/27/2024 6:50 AM EDT [facility] MPV 9.9 7.0 - 11.0 FL LAB HEMETOLOGY METHOD 09/27/2024 6:50 AM EDT [facility] NRBC 0.0 <1.0 % LAB HEMETOLOGY METHOD 09/27/2024 6:50 AM EDT [facility] NRBC Absolute 0.00 <0.10 K/mcL LAB HEMETOLOGY METHOD 09/27/2024 6:50 AM T [facility] Blood Venous blood specimen / Unknown Venipuncture / Unknown 09/27/2024 6:19 AM EDT 09/27/2024 6:29 AM EDT us Idris Chawla MD LAB BLOOD ORDERABLES Final Res ult [facility] [address] [place] [address], * (ABNORMAL) Urinalysis with reflex microscopic and culture (09/26/2024 9:44 PM EDT) Specific [place] Urine 1.019 1.003 - 1.030 LAB URINALYSIS - AUTOMATED METHOD 09/26/2024 9:57 PM [facility] pH, Urine 5.5 5.0 - 8.0 pH LAB URINALYSIS - AUTOMATED METHOD 09/26/2024 9:57 PM [facility] Leukocytes, Urine Small(A) Negative LAB URINALYSIS - AUTOMATED METHOD 09/26/2024 9:57 PM [facility] Nitrite, Urine Negative Negative LAB URINALYSIS - AUTOMATED METHOD 09/26/2024 9:57 PM [facility] Protein, Urine Negative <=Trace mg/dL LAB URINALYSIS - AUTOMATED METHOD 09/26/2024 9:57 PM [facility] Glucose, Urine Negative Negative mg/dL LAB URINALYSIS - AUTOMATED METHOD 09/26/2024 9:57 PM [facility] Ketones, Urine Trace(A) Negative mg/dL LAB URINALYSIS - AUTOMATED METHOD 09/26/2024 9:57 PM [facility] Urobilinogen, Urine 0.2 0.2 - 1.0 mg/dL LAB URINALYSIS - AUTOMATED METHOD 09/26/2024 9:57 PM [facility] Bilirubin, Urine Negative Negative LAB URINALYSIS - AUTOMATED METHOD 09/26/2024 9:57 PM [facility] Blood, Urine Negative Negative LAB URINALYSIS - AUTOMATED METHOD 09/26/2024 9:57 PM [facility] RBC, Urine 2.4 0 - 4 /HPF LAB URINALYSIS - AUTOMATED METHOD 09/26/2024 9:57 PM [facility] WBC, Urine 3.0 0 - 4 /HPF LAB URINALYSIS - AUTOMATED METHOD 09/26/2024 9:57 PM [facility] Squamous Epithelial, Urine 11 0 - 60 /LPF LAB URINALYSIS - AUTOMATED METHOD 09/26/2024 9:57 PM EDT [facility] Bacteria, Urine Negative Negative /HPF LAB URINALYSIS - AUTOMATED METHOD 09/26/2024 9:57 PM EDT [facility] Hyaline Casts, Urine 1.2 0 - 3 /LPF LAB URINALYSIS - AUTOMATED METHOD 09/26/2024 9:57 PM EDT [facility] Urine Urine specimen obtained by clean catch procedure / Unknown Non-blood Collection / Unknown 09/26/2024 9:44 PM EDT 09/26/2024 9:49 PM EDT Melissa VIDAL LAB URINE ORDERABLES Final Resul t Performing Organization Address [facility]/ZIP Co de Phone Number [facility] [address] [place] [address], [place] [phone] * Arcos urine culture tube (09/26/2024 9:44 PM EDT) Extra Tube Hold for add-ons. 09/26/2024 11:01 PM EDT [facility] Comment:Auto resulted. Urine Urine specimen obtained by clean catch procedure / Unknown Non-blood Collection / Unknown 09/26/2024 9:44 PM EDT 09/26/2024 9:49 PM EDT Melissa VIDAL LAB URINE ORDERABLES Final Resul t [facility] [address] [place] [address], [place] [phone] * Culture urine (09/26/2024 9:44 PM EDT) Culture, Urine 10,000-49,000 CFU/mL Mixed bacterial morphotypes present suggestive of possible contamination during collection. Suggest appropriate recollection if clinically indicated. 09/27/2024 1:18 PM EDT [facility] Urine Urine specimen obtained by clean catch procedure / Unknown Non-blood Collection / Unknown 09/26/2024 9:44 PM EDT 09/26/2024 9:57 PM EDT us Melissa VIDAL LAB MICROBIOLOGY - GENERAL ORDER [id number] Final Result [facility] ([facility] [address] [place] [address], * MR Brain wo Contrast (09/26/2024 6:19 [...] LAB HEMETOLOGY METHOD 09/26/2024 12:27 PM EDT [facility] RBC 4.00 3.80 - 4.80 M/mcL LAB HEMETOLOGY METHOD [facility] Hemoglobin 11.0(L) 11.5 - 16.0 g/dL LAB HEMETOLOGY METHOD 09/26/2024 12:[facility] Hematocrit 36.4 35.0 - 47.0 % LAB HEMETOLOGY METHOD 09/26/2024 12:[facility] MCV 90.1 79.0 - 98.0 FL LAB HEMETOLOGY METHOD 09/26/2024 12:27 PM [facility] MCH 27.2 27.0 - 32.0 pcg LAB HEMETOLOGY METHOD 09/26/2024 12:27 PM [facility] MCHC 30.2(L) 32.0 - 37.0 g/dL LAB HEMETOLOGY METHOD 09/26/2024 12:27 PM [facility] RDW 13.6 11.0 - 15.0 % LAB HEMETOLOGY METHOD 09/26/2024 12:27 PM [facility] Platelets 218 130 - 400 K/mcL LAB HEMETOLOGY METHOD 09/26/2024 12:27 PM [facility] MPV 9.4 7.0 - 11.0 FL LAB HEMETOLOGY METHOD 09/26/2024 12:27 PM [facility] NRBC 0.0 <1.0 % LAB HEMETOLOGY METHOD 09/26/2024 12:27 PM [facility] NRBC Absolute 0.00 <0.10 K/mcL LAB HEMETOLOGY METHOD 09/26/2024 12:27 PM [facility] Neutrophils Relative 86.7 % LAB HEMETOLOGY METHOD 09/26/2024 12:27 PM [facility] Lymphocytes Relative 6.4 % LAB HEMETOLOGY METHOD 09/26/2024 12:27 PM [facility] Monocytes Relative 6.1 % LAB HEMETOLOGY METHOD 09/26/2024 12:27 PM [facility] Eosinophils Relative 0.1 % LAB HEMETOLOGY METHOD 09/26/2024 12:27 PM [facility] Basophils Relative 0.1 % LAB HEMETOLOGY METHOD 09/26/2024 12:27 PM [facility] Immature Granulocytes Relative 0.6 % LAB HEMETOLOGY METHOD 09/26/2024 12:27 PM [facility] Neutrophils Absolute 7.44(H) 1.50 - 7.00 K/mcL LAB HEMETOLOGY METHOD 09/26/2024 12:27 PM [facility] Lymphocytes Absolute 0.55(L) 1.00 - 5.00 K/mcL LAB HEMETOLOGY METHOD 09/26/2024 12:27 PM [facility] Monocytes Absolute 0.52 0.20 - 1.00 K/mcL LAB HEMETOLOGY METHOD 09/26/2024 12:27 PM [facility] Eosinophils Absolute 0.01 0.00 - 0.50 K/mcL LAB HEMETOLOGY METHOD 09/26/2024 12:27 PM EDT [facility] Basophils Absolute 0.01 0.00 - 0.20 K/[facility] LAB HEMETOLOGY METHOD 09/26/2024 12:27 PM EDT [facility] Immature Granulocytes Absolute 0.05(H) 0.00 - 0.03 K/[facility] LAB HEMETOLOGY METHOD 09/26/2024 12:27 PM EDT [facility] Blood Venous blood specimen / Unknown Venipuncture / Unknown 09/26/2024 12:08 PM EDT 09/26/2024 12:16 PM EDT Maricarmen Hatfield DO LAB BLOOD ORDERABLES Final Result Performing Organization Address [facility]/ZIP Co de Phone Number [facility] [address] [place] [address], [place] [phone] * Activated partial thromboplastin time (09/26/2024 12:08 PM EDT) aPTT 29.7 24.1 - 39.3 sec LAB COAGULATION METHOD 09/26/2024 12:29 PM EDT [facility] Blood Venous blood specimen / Unknown Venipuncture / Unknown 09/26/2024 12:08 PM EDT 09/26/2024 12:16 PM EDT Maricarmen Hatfield DO LAB BLOOD ORDERABLES Final Result Performing Organization Address City/[facility]/ZIP Co de Phone Number [facility] [address] [place] [address], [place] [phone] * Prothrombin time with INR (09/26/2024 12:08 PM EDT) Protime 11.8 10.6 - 13.9 sec LAB COAGULATION METHOD 09/26/2024 12:29 PM EDT [facility] INR 0.9 LAB COAGULATION METHOD 09/26/2024 12:29 PM EDT [facility] Blood Venous blood specimen / Unknown Venipuncture / Unknown 09/26/2024 12:08 PM EDT 09/26/2024 12:16 PM EDT Maricarmen Hatfield DO LAB BLOOD ORDERABLES Final Result Performing Organization Address [facility] Co de Phone Number [facility] [address] [place] [address], [place] [phone] * Thyroid stimulating hormone (09/26/2024 12:08 PM EDT) TSH 1.29 0.40 - 4.00 mcIU/mL LAB CHEMISTRY METHOD 09/26/2024 6:39 PM EDT [facility] Blood Venous blood specimen / Unknown Venipuncture / Unknown 09/26/2024 12:08 PM EDT 09/26/2024 12:16 PM EDT us Melissa VIDAL LAB BLOOD ORDERABLES Final Resul t Performing Organization Address [facility] de Phone Number [facility] [address] [place] [address], [place] [phone] * Thyroxine free (09/26/2024 12:08 PM EDT) Free T4 1.14 0.70 - 1.80 ng/dL LAB CHEMISTRY METHOD 09/26/2024 6:39 PM EDT [facility] Blood Venous blood specimen / Unknown Venipuncture / Unknown 09/26/2024 12:08 PM EDT 09/26/2024 12:16 PM EDT us Melissa VIDAL LAB BLOOD ORDERABLES Final Resul t Performing Organization Address City/[facility]/ZIP Co de Phone Number [facility] [address] [place] [address], [place] [phone] * (ABNORMAL) POCT Glucose, blood (09/26/2024 11:46 AM EDT) Glucose POCT 126(H) 70 - 100 mg/dL 09/26/2024 11:47 AM EDT [facility] Blood Capillary blood specimen / Unknown 09/26/2024 11:46 AM EDT 09/26/2024 11:48 AM EDT us Maricarmen Hatfield DO LAB POINT OF CARE T EST DOCKED DEVICE UNSOLICITED RESULTS Final Result [facility] [address] [place] [address], [place] [phone] * CT Angio Head/Neck Stroke wo and/or w Contrast (09/26/2024 11:24 AM EDT) Anatomical Region Laterality Modality Head and Neck Computed Tomogra phy 09/26/2024 11:5 7 AM EDT Impressions 09/26/2024 12:06 PM EDT 1. No large vessel occlusion, intracranial aneurysm, dissection, or hemodynamically significant cervical carotid stenosis. 2. 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 Telerad PA ([id number]) -------- FINAL REPORT -------- Dictated By: Jhoana Chase Dictated Date: 09/26/2024 11:57 ET Assigned Physician: Jhoana Chase Reviewed and Electronically Signed By: Jhoana Chase Signed Date: 09/26/2024 12:06 ET Workstation ID: [id number] Transcribed By: Self Edit Transcribed Date: 09/26/2024 [...] was also performed. DLP: 2522.84 mGy/cm GE [employer] VCT Iterative reconstruction technique FINDINGS: CTA: INTRACRANIAL VASCULATURE: The bilateral A1 and M1 segments are widely patent. The more distal branches of the anterior and middle cerebral arteries also appear patent. The basilar artery is widely patent and terminates in the bilateral cupola charger. The right PRESETTER OPERATOR is partially supplied by the right [...] was also performed. DLP: 2522.84 mGy/cm GE [employer] VCT Iterative reconstruction technique FINDINGS: CTA: INTRACRANIAL VASCULATURE: The bilateral A1 and M1 segments are widelypatent. The more distal branches of the anterior and middle cerebralarteries also appear patent. The basilar artery is widely patent andterminates in the bilateral cupola charger. The right PRESETTER OPERATOR is partially supplied bythe right internal [...] measuring 3.4 cm in diameter. Telerad PA ([id number]) -------- FINAL REPORT -------- Dictated By: Jhoana Chase Dictated Date: 09/26/2024 11:57 ET Assigned Physician: Jhoana Chase Reviewed and Electronically Signed By: Jhoana Chase Signed Date: 09/26/2024 12:06 ET Workstation ID: [id number] Transcribed By: Self Edit Transcribed Date: 09/26/2024 [...] of interpretation on 09/26/24 by secure message ([employer]). Telerad YOUNG ([id number]) A Critical Document Only message has been documented for the office of MARICARMEN HATFIELD in the [employer] system on 09/26/2024 11:45 AM, Message ID [id number]. -------- FINAL REPORT -------- Dictated By: Jhoana Chase Dictated Date: 09/26/2024 11:41 ET Assigned Physician: Jhoana Chase Reviewed and Electronically Signed By: Jhoana Chase Signed Date: 09/26/2024 11:45 ET Workstation ID: [id number] Transcribed By: Self Edit Transcribed Date: 09/26/2024 11:41 ET Narrative 09/26/2024 11:45 AM EDT History: Stroke. Severe headache. Nausea. Altered mental status. Comparison: 09/16/16 Technique: Contiguous axial images were obtained at 2.5 mm intervals through the posterior fossa and at 5 mm intervals through the remainder of the brain without intravenous contrast. DLP: 808.85 mGy/cm GE Red [employer] VCT Iterative reconstruction technique Findings: The ventricular [...] without intravenous contrast. DLP: 808.85 mGy/cm GE Red [employer] VCT Iterative reconstruction technique Findings: The ventricular [...] time ofinterpretation on 09/26/24 by secure message ([employer]). Telerad YOUNG ([id number]) A Critical Document Only message has been documented for the office ofMARICARMEN HATFIELD in the [employer] system on09/26/2024 11:45 AM, Message ID [id number]. -------- FINAL REPORT -------- Dictated By: Jhoana Chase Dictated Date: 09/26/2024 11:41 ET Assigned Physician: Jhoana Chase Reviewed and Electronically Signed By: Jhoana Chase Signed Date: 09/26/2024 11:45 ET Workstation ID: [id number] Transcribed By: Self Edit Transcribed Date: 09/26/2024 [...] AM EDT Narrative 06/22/2017 1:56 PM EDT [facility] Diagnostic Imaging Department [address] [place] [address] Patient: EDUARDO ENGEL D.O.B./Age/Sex: 1950 - 66 - F Unit#: [id number] Location/Status: SPDIMAM/REG CLI Mnemonic[facility] Ordering Physician: LITA TORRES MD [facility] Dexa Axial Skeleton - 06/22/17 - 30 [facility] Dexa Axial Skeleton INDICATION: POST [...] placing the patient at risk for fracture. 53379 A report detailing these results has been enclosed. Dictating Physician: BEN GASTON MD Electronically Signed by: BEN GASTON MD Dic Date/Time: 06/22/171353 Sign date/Time: 06/22/17 135 Procedure Note Ben Gaston MD - 03/31/2022 [facility] Diagnostic Imaging Department [address] [place] [address] Patient: EDUARDO ENGEL D.O.B./Age/Sex: 1950 - 66 -F Unit#: [id number] Location/Status: SPDIMAM/REG CLI Mnemonic[facility] Ordering Physician: LITA TORRES MD [facility] Dexa Axial Skeleton - 06/22/17 - 729 [facility] Dexa Axial Skeleton INDICATION: POST [...] osteoporosis, placing the patient at risk forfracture. 36065 A report detailing these results has been [...] ID:[id number] Group ID:[id number] Type:Not on file Address: [place] [address] [place] [address] Advance Directives * Full Code - Default [...] currently active code status orders. Care Teams Mounter Saxophones Relationship Specialty Start Date End Date Addi Holland NP [address] [place], [place] PCP - General Family Medicine 03/04/21
--- OUTSIDE RECORDS SUMMARY | 2024-11-29 12:08 | XMS_ITS | Patient Health Record ---
Author Organization [employer]. Address [address] [place] [address] Care Team Providers Care Cad Design Engineer Name Role Phone Macario Scott Primary Care Provider Allergies Allergen (clinical drug ingredient) Drug/Non Drug Allergy documented on EMR Reaction Allergy Type Onset Date Status tramadol Tramadol rash Drug Allergy Active Results Component Value Reference Range Notes Occult Blood, Fecal, IA-LAB BRENNON Reviewed date:03/31/2024 08:45:03 AM Interpretation: Performing Lab:[facility] [address] [id number], Phone - [phone], Director - Bree Notes/Report: Occult Blood, Fecal, IA Negative Negative Microalbumin/Creatinine Rati o, Random Urine-LC Reviewed date:03/31/2024 08:45:06 AM Interpretation: Performing Lab:[facility] [address] [id number], Phone - [phone], Director - MDShanita Notes/Report: Creatinine, Urine 122.7 Not Estab. mg/dL Albumin, Urine 12.5 Not Estab. ug/mL Alb/Creat Ratio 10 0-29 mg/g creat Moderately increased: 30 - 300 Normal: 0 - 29 Severely increased: >300 CBC With Differential/Platel et-LC-Q Reviewed date:03/31/2024 08:45:13 AM Interpretation: Performing Lab:[facility] [address] [id number], Phone - [phone], Director - MDShanita Notes/Report: WBC 7.0 3.4-10.8 x10E3/uL RBC 4.55 [...] Immature Grans (Abs) 0.0 0.0-0.1 x10E3/uL Urinalysis, Amrtpveu-TT-J Reviewed date:03/31/2024 08:45:17 AM Interpretation: Performing Lab:[facility] [address] [id number], Phone - [phone], Director - Bree Notes/Report: Specific Alleene 1.020 1.005-1.030 pH 7.0 5.0-7.5 Urine-Color Yellow [...] 14+eGFR-LC-Q Reviewed date:03/31/2024 08:45:20 AM Interpretation: Performing Lab:[facility] [address] [id number], Phone - [phone], Director - Bree Notes/Report: Glucose 82 70-99 [...] Reviewed date:03/31/2024 08:45:24 AM Interpretation: Performing Lab:[facility] [address] [id number], Phone - [phone], Director - Bree Notes/Report: Cholesterol, Total 222 100-199 mg/dL Triglycerides 65 0-149 mg/dL HDL Cholesterol 76 >39 mg/dL VLDL Cholesterol Koby 11 5-40 mg/dL LDL Chol Calc (NIH) 135 0-99 mg/dL EKG Electrocardiogram Reviewed date:03/24/2024 02:15:49 PM Interpretation: Performing Lab: Notes/Report: Cardiovascular Risk Assessme nt Reviewed date:04/06/2024 12:00:17 PM Interpretation: Performing Lab:[facility] [address] [id number], Phone - [phone], Director - Bree Notes/Report: Interpretation Note Supplemental report is available. PDF . Microalb/Creat Ratio, Timed Ur-LC Reviewed date:04/26/2024 08:51:11 AM Interpretation: Performing Lab:[facility] [id number], Phone - [phone], Director - Bree Notes/Report: Ur.Collec. Interval 0 [...] T4 Reviewed date:04/26/2024 08:51:11 AM Interpretation: Performing Lab:[facility] [address] [id number], Phone - [phone], Director - MDShanita Notes/Report: TSH 3.730 0.450-4.500 uIU/mL Lipid Panel With LDL/HDL Rat io-LC Reviewed date:04/26/2024 08:51:11 AM Interpretation: Performing Lab:[facility] [place], [address] [place] [id number], Phone - [phone], Director - MDShanita Notes/Report: Cholesterol, Total 232 100-199 mg/dL Triglycerides 76 0-149 mg/dL HDL Cholesterol 71 >39 mg/dL VLDL Cholesterol Koby 13 5-40 mg/dL LDL Chol Calc ([facility]) 148 0-99 mg/dL LDL/HDL Ratio 2.1 0.0-3.2 ratio Avg.Risk 3.6 3.2 3X Avg.Risk 8.0 6.1 LDL/HDL Ratio 1/2 Avg.Risk 1.0 1.5 Men Women 2X Avg.Risk 6.2 5.0 Comprehensive Metabolic Pane l 14+eGFR-LC-Q Reviewed date:04/26/2024 08:51:11 AM Interpretation: Performing Lab:[facility] [address] [id number], Phone - [phone], Director - MDShanita Notes/Report: Glucose 94 70-99 mg/dL BUN 14 [...] IU/L ALT (SGPT) 10 0-32 IU/L Urinalysis, Hgplgtlo-DD-P Reviewed date:04/26/2024 08:51:11 AM Interpretation: [facility], [address] [place] [id number], Phone - [phone], Director - Bree Notes/Report: Specific Alleene 1.016 1.005-1.030 pH 7.0 5.0-7.5 Urine-Color Yellow [...] et-LC-Q Reviewed date:04/26/2024 08:51:11 AM Interpretation: [facility]forming [facility], [facility] [address] [place], [place] [id number], Phone - [phone], Director - Bree Notes/Report: WBC 5.5 3.4-10.8 [...] Reviewed date:03/31/2024 08:44:59 AM Interpretation: Performing Lab:[facility] [place], [facility] [address] [place] [id number], Phone - [phone], Director - Bree Notes/Report: TSH 1.770 0.450-4.500 uIU/mL Cardiovascular Risk Assessme nt Reviewed date:04/26/2024 08:51:11 AM Interpretation: Performing Lab:[facility] [place], [facility] [place] [id number], Phone - [phone], Director - Bree Notes/Report: Interpretation Note Supplemental report is available. PDF . Occult Blood, Fecal, IA-LAB BRENNON Reviewed date:05/04/2024 04:08:08 PM Interpretation: Performing Lab:[facility] [place], [facility] [place] [id number], Phone - [phone], Director - Bree Notes/Report: Occult Blood, Fecal, IA Negative Negative Reason For Referral Reason If additional kathy ting is needed, please refer back to PCP. Please fax consult notes and/or results of procedure approved to [phone]. Thanks! ~Annual Eye Exam~ Diagnosis 1 Encounter for examin ation of eyes and vision without abnormal findings (Z01.00) Referral Organization [facility] Referring Provider First Name Macario Referring Provider Last Name Tyler Referring Provider Speciality General Pr actice Referred Provider [employer], [facility] Referred Provider Specialty Audit Intern Referral Priority Routine Reason Please fax consul t notes and/or results of procedure approved to [phone]. Thanks! CONSULT ONLY - MANAGED CARE ~Annual Eye Exam~ Diagnosis 1 Encounter for examin ation of eyes and vision without abnormal findings (Z01.00) Referral Organization [facility] Referring Provider First Name Macario Referring Provider Last Name Tyler Referring Provider Speciality General Pr actice Referred Provider [employer] Referred Provider Specialty Audit Intern Referral Priority Routine Medications Medication SIG (Take, [...] W/U Status Risk Notes Problem Mixed hyperlipidemia (629404814) Mixed hyperlipidemia (E78.2) Active confirmed Problem Chronic kidney disease due to hypertension (981767086128049) Hypertensive chronic kidney disease with stage 1 through stage 4 chronic kidney disease, or unspecified chronic kidney disease (I12.9) Active confirmed Problem Fibromyalgia (299327490) Fibromyalgia (M79.7) Active confirmed Problem Chronic insomnia (595569330) Chronic insomnia (F51.04) Active confirmed Problem Vertigo (670224026) Vertigo (R42) Active confirmed Problem Acquired hypothyroidism (620464866) Acquired hypothyroidism (E03.9) Active confirmed Problem Migraine (51781090) Migraine syndrome (G43.909) Active confirmed Problem Chronic kidney disease stage 2 (334322252) CKD (chronic kidney disease), stage II (N18.2) Active confirmed GFR 75 as per lab results from Problem Former smoker (6333809) Former smoker (Z87.891) Active confirmed Problem Moderate recurrent major depression (39648019) 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) Active confirmed Problem Uncomplicated severe persistent asthma (022530197) Severe persistent asthma without complication (J45.50) Active [...] N/A Encounters Encounter Location Date Provider Diagnosis [facility] [address] [address] 03/24/2024 Macario Scott [facility] [address] [facility] [address] [place] [address] 03/24/2024 Macario Scott [facility] [address] [facility] [address] [place] [address] 03/31/2024 Macario Scott [facility] [address] [facility] [address] [place] [address] 04/24/2024 Macario Scott Essential (primary) hypertension I10 ; Mixed hyperlipidemia E78.2 and Acquired hypothyroidism E03.9 [facility] [address] [facility] [address] [place] [address] 03/24/2024 Macario Scott Essential (primary) hypertension I10 [...] eyes and vision without abnormal findings Z01.[address] [place] [address] [place] [address] 03/31/2024 Macario Scott Hypertensive chronic kidney disease [...] of 25.0 to 25.9 in adult Z68.25 [facility] [address] [facility] [address] [place] [address] 05/02/2024 Macario Scott Severe persistent asthma without [...] Comprehensive Metabolic Panel 14+eGFR-LC -Q 05/02/2024 Urinalysis, Vjulenxq-LG-P 05/02/2024 CBC With Differential/Ldxpypzg-XP-N 04/13 Mammo SCREENING MAMMO DIGITAL, SOHEILA 05/02 Mammo SCREENING MAMMO DIGITAL, SOHEILA 03/24 CHEST X-RAY (PA/LATERAL) 05/02/2024 CHEST X-RAY (PA/LATERAL) 03/24/2024 Future Test Test Name Order Date Lipid Panel With LDL/HDL Ratio-LC 2024 Comprehensive Metabolic Panel 14+eGFR-LC -Q 09/25/2024 Urinalysis, Wvbnzktq-VI-X 09/25/2024 CBC With Differential/Binygwdi-YE-K 09/10 Insurance Providers Payer Name Payer Address Payer Phone Subscriber Number Group Number Insured Name Patient Relationship to Insured Coverage Start Date Coverage End Date [facility] [address] [address] [place] [address] [phone] [id number] [place], [place] Self - patient is the insured Medical (General) History Medical History History ICD Code hyperension asthma sinusitis migraines thyroid Surgical History Surgery Date(Month/Year) hystrectomy total 1996 right leg n/a nose n/a carpal tunel on both hands n/a
== END 2024-11-29 11:38 | disposition home or self-care (01) ==
LOC: HO.HBS 10:47
PROVIDERS: PCP Nurse Practitioner Family; Visit Provider Physician Assistant Surgical
DX: E66.3 Overweight (principal); Z98.84 Bariatric surgery status
CPT/HCPCS: 99214; G2211

== ENCOUNTER → 2024-11-29 10:46 | Outpatient (BNVA) | payer OTHER, SELFPAY | PROVIDERS: PCP Nurse Practitioner Family; Visit Provider Physician Assistant Surgical | DX: Z98.84 Bariatric surgery status (principal); E66.3 Overweight | CPT/HCPCS: 99212 ==

== ENCOUNTER 2024-12-14 06:22 | Outpatient (REF) | payer OTHER, SELFPAY ==
--- OUTSIDE RECORDS SUMMARY | 2024-01-28 06:15 | XMS_ITS ---
Author Organization [facility] Address [address] [place] [address] Care Team Providers Care Pantograph I Engraver Name Role Phone AUTUMN PADILLA Primary Care Provider [phone] REASON FOR VISIT Courtesy Visit Vital Signs Temperature 97.6 degrees Fahrenheit 01/28/20 24 Respiratory Rate 20 /min 01/28/2024 Height 5'2 in 01/28/2024 Weight 145 lbs 01/28/2024 BMI 26.52 kg/m2 01/28/2024 Oximetry 99 01/28/2024 Blood pressure systolic 120 01/28/20 24 Blood pressure diastolic 81 024 Encounters Encounter Location Date Provider Diagnosis [facility] [address] [place] [address] 01/28/2024 AUTUMN BEASLEY Plan Of Treatment No Information Progress Notes * LOIS NAGY MarieDO B:1950 (74 yo F)Acc No.[id number]:01/28/2024 Patient: Lawson janayshira Marie Nagy Provider: Lawson BEASLEY MD :1950 A ge:73 Y S ex:Female Date:01/28/2024 Phone: Address:[address] [place] [phone] Structured Data:Consent to r eceive voicemail/text messages? : YES Subjective: * Chief Complaints: * C ourtesy Visit Objective: * Vitals: I nitials: AM, BP sittin/81, RR:20/min, Oxygen sat %:99, Pulse sittin, Temp:97.6F, Wt:145lbs, Ht-in: 5'2 , BMI:26.52Index, Pain scale:01-10. Plan: * Procedure Codes: 3 074F SYST BP < 130 [id number] DIAST BP 80-89 MM HG Billing Information: * Procedure Codes: 3074F SYST BP < 130 mmHg. 3079F DIAST BP 80-89 MM HG. * Electronic signature of AUTUMN BEASLEY MD on 12/14/2024 at 06:26 AM EDT Sign off status: Pending * Provider: Lawson BEASLEY MD Date: 1 Generated for Tom kenny/Dania/Simiitting on: 0 12/14/2024 06:26 AM EDT
--- OUTSIDE RECORDS SUMMARY | 2024-02-28 05:15 | XMS_ITS ---
Author Organization [facility] Address [address] [place] [address] Care Team Providers Care Box Builder Name Role Phone AUTUMN PADILLA Primary Care Provider REASON FOR VISIT new patient Encounters Encounter Location Date Provider Diagnosis [facility] [address] [place] [address] 02/28/2024 AUTUMN BEASLEY Plan Of Treatment No Information Progress Notes * Marie ENGELDO B:1950 (74 yo F)Acc No.[id number]:02/28/2024 Patient: Lawson janayshira Marie Nagy Provider: Lawson BEASLEY MD :1950 A ge:73 Y S ex:Female Date:02/28/2024 Phone: Address:[address] [place], [place] [phone] Structured Data:Consent to r eceive voicemail/text messages? : YES Subjective: * Chief Complaints: * N ew patient * Electronic signature of AUTUMN BEASLEY MD on 12/14/2024 at 06:26 AM EDT Sign off status: Pending * Provider: Lawson BEASLEY MD Date: 1 04/29/2023 Generated for Printi ng/Faxing/eTransmitting on: 0 12/14/2024 06:26 AM EDT
--- OUTSIDE RECORDS SUMMARY | 2024-02-28 05:15 | XMS_ITS ---
Author Organization [facility] Address [address] [place] [address] Care Team Providers Care Risk Prevention Engineer Name Role Phone AUTUMN PADILLA Primary Care Provider REASON FOR VISIT new patient, Please request prev medical records Encounters Encounter Location Date Provider Diagnosis [facility] [address] [place] [address] 02/28/2024 AUTUMN BEASLEY Plan Of Treatment No Information Progress Notes * Marie ENGELDO B:1950 (74 yo F)Acc No.[id number]:02/28/2024 Patient: Marie Sterling Provider: Lawson BEASLEY MD :1950 A ge:73 Y S ex:Female Date:02/28/2024 Phone: Address:[address] [place], [place] [phone] Structured Data:Consent to r eceive voicemail/text messages? : YES Subjective: * Chief Complaints: * N ew patientPlease request prev medical records Billing Information: * Procedure Codes: * Electronic signature of AUTUMN BEASLEY MD on 12/14/2024 at 06:25 AM EDT Sign off status: Pending * Provider: Lawson BEASLEY MD Date: 04/29/2023 Generated for Deborahi ng/Fakeanug/eTransmitting on: 0 12/14/2024 06:25 AM EDT
--- OUTSIDE RECORDS SUMMARY | 2024-02-29 06:00 | XMS_ITS ---
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 [address] [place] [address] 02/29/2024 AUTUMN BEASLEY Plan Of Treatment No Information Progress Notes * Marie ENGELDO B:1950 (74 yo F)Acc No.[id number]:02/29/2024 Patient: Lawson kapoor YakovMarie Provider: Lawson BEASLEY MD :1950 A ge:73 Y S ex:Female Date:02/29/2024 Phone: Address:[address] [place], [place] [phone] Structured Data:Consent to r eceive voicemail/text messages? : YES Subjective: * Chief Complaints: * N P * Electronic signature of AUTUMN BEASLEY MD on 12/14/2024 at 06:26 AM EDT Sign off status: Pending * Provider: Lawson BEASLEY MD Date: 04/30/2023 Generated for Printi ng/Faxing/eTransmitting on: 0 12/14/2024 06:26 AM EDT
--- OUTSIDE RECORDS SUMMARY | 2024-06-16 04:30 | XMS_ITS ---
Author Organization [facility] Address [address] [place] [address] Care Team Providers Care Automotive Hardware Engineer Name Role Phone Macario Scott Primary Care Provider REASON FOR VISIT SPIROMETRY Social History Sex Assigned At : Social History Observation Description Sex Assigned At Female Encounters Encounter Location Date Provider Diagnosis [facility] [address] [address] 06/16/2024 Macario Scott Plan Of Treatment No Information Progress Notes * EDUARDO ABREUDOB:[birth year] (74 yo F)Acc No.[id number]:06/16/2024 Progress Note Patient: EDUARDO STORM Provider: Andrzej Scott MD :1950 A ge:73 Y S ex:Female Date:06/16/2024 Address:[address] [place] [address] Subjective: * Chief Complaints: * 1 . SPIROMETRY. * Medical History: Objective: * Vitals: Assessment: Plan: * Treatment: * Images: * Electronic signature of Anoop Scott MD on 12/14/2024 at 06:26 AM EDT Sign off status: Pending * Provider: Andrzej Scott MD Date: 06/16/2024 Generated for Tom kenny/Dania/Simiitting on: 12/14/2024 06:26 AM EDT
--- OUTSIDE RECORDS SUMMARY | 2024-06-16 05:15 | XMS_ITS ---
Author Organization [facility] Address [address] [place] [address] Care Team Providers Care Stonemason Apprentice Name Role Phone Macario Scott Primary Care Provider REASON FOR VISIT F/UP REFILL Social History Sex Assigned At : Social History Observation Description Sex Assigned At Female Encounters Encounter Location Date Provider Diagnosis [facility] [address] [address] 06/16/2024 Macario Scott Plan Of Treatment No Information Progress Notes * EDUARDO ABREUDOB:[birth year] (74 yo F)Acc No.[id number]:06/16/2024 Progress Note Patient: EDUARDO STORM Provider: Andrzej Scott MD :1950 A ge:73 Y S ex:Female Date:06/16/2024 Address:[address] [place] [address] Subjective: * Chief Complaints: * 1 . F/UP REFILL. * Medical History: Objective: * Vitals: Assessment: Plan: * Treatment: * Images: Care Plan Details* * Electronic signature of Anoop Scott MD on 12/14/2024 at 06:26 AM EDT Sign off status: Pending * Provider: Andrzej Scott MD Date: 06/16/2024 Generated for Tom kenny/Dania/eTransmitting on: 12/14/2024 06:26 AM EDT
--- OUTSIDE RECORDS SUMMARY | 2024-09-25 04:45 | XMS_ITS ---
Author Organization [facility] Address [address] [place] [address] Care Team Providers Care Food And Nutrition Professor Name Role Phone Macario Scott Primary Care Provider [phone] REASON FOR VISIT LABS Social History Sex Assigned At : Social History Observation Description Sex Assigned At Female Encounters Encounter Location Date Provider Diagnosis [facility] [address] [address] 09/25/2024 Macario Scott Plan Of Treatment No Information Progress Notes * EDUARDO ABREUDOB:[birth year] (74 yo F)Acc No.[id number]:09/25/2024 Progress Note Patient: EDUARDO STORM Provider: Andrzej Scott MD :1950 A ge:74 Y S ex:Female Date:09/25/2024 Address:[address] [place] [address] Subjective: * Chief Complaints: * 1 . LABS. * Medical History: Objective: * Vitals: Assessment: Plan: * Treatment: * Images: * Electronic signature of Anoop Scott MD on 12/14/2024 at 06:27 AM EDT Sign off status: Pending * Provider: Andrzej Scott MD Date: 09/25/2024 Generated for Tom kenny/Dania/Simiitting on: 12/14/2024 06:27 AM EDT
--- OUTSIDE RECORDS SUMMARY | 2024-10-02 04:45 | XMS_ITS ---
Author Organization [facility] Address [address] [place] [address] Care Team Providers Care Sports Management Intern Name Role Phone Macario Scott Primary Care Provider REASON FOR VISIT Lab Result Social History Sex Assigned At : Social History Observation Description Sex Assigned At Female Encounters Encounter Location Date Provider Diagnosis [facility] [address] [address] 10/02/2024 Macario Scott Plan Of Treatment No Information Progress Notes * EDUARDO ABREUDOB:[birth year] (74 yo F)Acc No.[id number]:10/02/2024 Progress Note Patient: EDUARDO STORM Provider: Andrzej Scott MD :1950 A ge:74 Y S ex:Female Date:10/02/2024 Address:[address] [place] [address] Subjective: * Chief Complaints: * 1 . Lab Result. * Medical History: Objective: * Vitals: Assessment: Plan: * Treatment: * Images: Care Plan Details* * Electronic signature of Anoop Scott MD on 12/14/2024 at 06:27 AM EDT Sign off status: Pending * Provider: Andrzej Scott MD Date: 10/02/2024 Generated for Tom kenny/Dania/eTashishsmitting on: 12/14/2024 06:27 AM EDT
--- NOTE | ~2024-12-14 | FL_ITS ---
EXAMINATION: XR FLUOROSCOPY WITH IMAGES CLINICAL INFORMATION: Cervical spondylosis. Pain management. COMPARISON: None available. TECHNIQUE: Fluoroscopy provided to: Dr. Mtz Fluoroscopy time: 0.5 minutes DAP: 0.0131 mGycm2 Images: 3 FINDINGS: 3 fluoroscopic spot images taken during cervical pain management procedure. Please refer to the full operative report for details. FL/FL guidance in treatment room IMPRESSION: Fluoroscopic guidance. Electronically signed by: Anthony Kohler MD 12/14/2024 01:54 PM EDT
--- OUTSIDE RECORDS SUMMARY | 2024-12-14 06:26 | XMS_ITS | Encounter Summary ---
Author Organization [facility] Address [address] [place] [address] Phone Care Team Providers Care Orthotist Prosthetist Name Role Phone Addi Holland NP Primary Care Provider + Encounter Details Date Type Department Care Team (Late st Contact Info) Description 03/01/2023 Procedure Pass [facility] Endoscopy Admitting Dept Virtual Department [address] [place] [address] Social History Tobacco Use Types Packs/Day Years [...] on filedocumented in this encounter Care Teams Orthotist Prosthetist Relationship Specialty Start Date End Date Addi Holland NP [address] [facility] [address] PCP - General Nurse Practitioner 02/17/23 documented as of this encounter Additional Source Comments The information contained in this document represents components of the legal health record. It is not the complete legal health record.[facility]
--- OUTSIDE RECORDS SUMMARY | 2024-12-14 06:26 | XMS_ITS | Encounter Summary ---
Author Organization [facility] Address [address] [place] [address] Phone Care Team Providers Care Office Services Specialist Name Role Phone Addi Holland NP Primary Care Provider + Encounter Details Date Type Department Care Team (Late st Contact Info) Description 03/08/2023 Procedure Pass [facility] Endoscopy Admitting Dept Virtual Department [address] [place] [address] Social History Tobacco Use Types Packs/Day Years [...] on filedocumented in this encounter Care Teams Office Services Specialist Relationship Specialty Start Date End Date Addi Holland NP [address] [place] [address] PCP - General Nurse Practitioner 02/17/23 documented as of this encounter Additional Source Comments The information contained in this document represents components of the legal health record. It is not the complete legal health record.[facility]
--- OUTSIDE RECORDS SUMMARY | 2024-12-14 06:26 | XMS_ITS | Clinical Summary ---
Author Organization [facility] Address [address] [place] [address] Phone Care Team Providers Care Director Of District Office Name Role Phone Addi Holland NP Primary [...] Hospital Encounter [facility] Neurodiagn[facility] [address] [place] [address] Myopathy Discharge Disposition: Home or Self Care 09/26/2024 11:04 AM EDT - 09/29/2024 4:43 PM EDT Hospital Encounter [facility] Urology Unit [address] [place] [address] Maricarmen Hatfield DO [place], Gary [...] TUNNEL REL UPPER GASTROINTESTINAL ENDOSCOPY 08/18/2016 PROCEDURE: RI UPPER GI ENDOSCOPY PERFORMED; COMMENT: Erosive gastritis, [...] care for your loved ones. For example, attendant child activity or elderly care for an older adult? [...] Screening 03/15/2022 Medicare Annual Wellness Visit 03/15/2022 Depression Screening 04/12/2024 COVID-19 Vaccine ( season) 2024 03/21/2021, 09/03/2020, 08/13/2020 Influenza Vaccine (#1) 2024 [...] result were not included. [facility] [address] [place] [address] Electromyograph Report Date of service: 10/02/24 Patient [...] note were not included. [facility] [address] [place] [address] Electromyograph Report Date of service: 10/02/24 Patient [...] 2. No active pulmonary process. Telerad YOUNG ([id number]) -------- FINAL REPORT -------- Dictated By: Jhoana Chase Dictated Date: 10/01/2024 10:10 ET Assigned Physician: Jhoana Chase Reviewed and Electronically Signed By: Jhoana Cahse Signed Date: 10/01/2024 10:12 ET Workstation ID: [id number] Transcribed By: Self Edit Transcribed Date: 10/01/2024 [...] 2. No active pulmonary process. Teleenio VIDAL ([id number]) -------- FINAL REPORT -------- Dictated By: Jhoana Chase Dictated Date: 10/01/2024 10:10 ET Assigned Physician: Jhoana Chase Reviewed and Electronically Signed By: Jhoana Chase Signed Date: 10/01/2024 10:12 ET Workstation ID: [id number] Transcribed By: Self Edit Transcribed Date: 10/01/2024 10:10 ET Katelyn VIDAL IMG XR PROCEDURES Final R esult * Lavender tube (09/29/2024 5:58 AM EDT) Only the most recent of2 resultswithin the time period is included. [facility] Extra Tube Hold for add-ons. 10/02/2024 9:01 AM EDT [facility] Comment:Auto resulted. Blood Venous blood specimen / Unknown Venipuncture / Unknown 09/29/2024 5:58 AM EDT 09/29/2024 6:17 AM EDT Yuval Lake MD LAB BLOOD ORDERABLES F inal Result [facility] [address] [place] [address], [place] [phone] * Magnesium (09/29/2024 5:58 AM EDT) Only the most recent of2 resultswithin the time period is included. [facility] Magnesium 2.1 1.9 - 2.6 mg/dL LAB CHEMISTRY METHOD 09/29/2024 7:05 AM EDT [facility] Blood Venous blood specimen / Unknown Venipuncture / Unknown 09/29/2024 5:58 AM EDT 09/29/2024 6:12 AM EDT [facility] LAB BLOOD ORDERABLES Hoa l Result Performing Organization Address City/[facility]/ZIP Co de Phone Number [facility] [address] [place] [address], [place] [phone] * (ABNORMAL) Creatine kinase (09/29/2024 5:58 AM EDT) Only the most recent of3 resultswithin the time period is included. Pathologist [facility] Total CK 1,852(H) 22 - 269 unit/L LAB CHEMISTRY METHOD 09/29/2024 7:24 AM EDT [facility] Blood Venous blood specimen / Unknown Venipuncture / Unknown 09/29/2024 5:58 AM EDT 09/29/2024 6:12 AM EDT [facility] LAB BLOOD ORDERABLES Hoa l Result Performing Organization Address [facility] Co de Phone Number [facility] [address] [place] [address], [place] [phone] * (ABNORMAL) Basic metabolic panel (09/29/2024 5:58 AM EDT) Only the most recent of3 resultswithin the time period is included. Sodium 137 133 - 145 mmol/L LAB CHEMISTRY METHOD 09/29/2024 7:05 AM EDT [facility] Potassium 4.3 3.5 - 5.5 mmol/L LAB CHEMISTRY METHOD 09/29/2024 7:05 AM EDT [facility] Chloride 100 96 - 110 mmol/L LAB CHEMISTRY METHOD 09/29/2024 7:05 AM [facility] CO2 33(H) 21 - 32 mmol/L LAB CHEMISTRY METHOD 09/29/2024 7:05 AM [facility] Anion Gap 4 3 - 11 LAB CHEMISTRY METHOD 09/29/2024 7:05 AM [facility] Glucose 101(H) 70 - 100 mg/dL LAB CHEMISTRY METHOD 09/29/2024 7:05 AM [facility] BUN 17 5 - 25 mg/dL LAB CHEMISTRY METHOD 09/29/2024 7:05 AM [facility] Creatinine 0.76 0.50 - 1.10 mg/dL LAB CHEMISTRY METHOD 09/29/2024 7:05 AM [facility] eGFR 83 >=60 mL/min/1. 73m2 LAB CHEMISTRY METHOD 09/29/2024 7:05 AM [facility] Comment:Calculation based on the Chronic Kidney Disease Epidemiology Collaboration (CKD-EPI) equation refit without adjustment for race. BUN/Creatinine Ratio 22.4 LAB CHEMISTRY METHOD 09/29/2024 7:05 AM [facility] Calcium 9.2 8.5 - 10.5 mg/dL LAB CHEMISTRY METHOD 09/29/2024 7:05 AM [facility] Blood Venous blood specimen / Unknown Venipuncture / Unknown 09/29/2024 5:58 AM EDT 09/29/2024 6:12 AM EDT us Katelyn VIDAL LAB BLOOD ORDERABLES Hoa l Result [facility] [address] [place] [address], * XR Hip 1 View Left (09/28/2024 12:35 PM EDT) Anatomical Region Laterality Modality Lower Extremities, Hip Left Radiograp hic Imaging 09/28/2024 12:4 8 PM EDT Impressions 09/28/2024 12:51 PM EDT FINDINGS/IMPRESSION: Single AP view of the left hip demonstrating mild osteoarthritic changes. No acute fracture. Normal alignment. -------- FINAL REPORT -------- Dictated By: Ankit Bauer Dictated Date: 09/28/2024 12:48 ET Assigned Physician: Aknit Bauer Reviewed and Electronically Signed By: Ankit Bauer Signed Date: 09/28/2024 12:51 ET Workstation ID: [id number] Transcribed By: Self Edit Transcribed Date: 09/28/2024 [...] Signed Date: 09/28/2024 12:51 ET Workstation ID: [id number] Transcribed By: Self Edit Transcribed Date: 09/28/2024 12:48 ET Katelyn VIDAL IMG XR PROCEDURES Final R esult * Phosphorus (09/28/2024 6:01 AM EDT) [facility] Phosphorus 3.1 2.5 - 4.5 mg/dL LAB CHEMISTRY METHOD 09/28/2024 7:[address] [facility] Blood Venous blood specimen / Unknown Venipuncture / Unknown 09/28/2024 6:01 AM EDT 09/28/2024 6:24 AM EDT Katelyn VIDAL LAB BLOOD ORDERABLES Hoa chavez Result [facility] [address] [place] [address], * (ABNORMAL) Comprehensive metabolic panel (09/28/2024 6:01 AM EDT) Sodium 135 133 - 145 mmol/L LAB CHEMISTRY METHOD 09/28/2024 7:56 AM [facility] Potassium 3.6 3.5 - 5.5 mmol/L LAB CHEMISTRY METHOD 09/28/2024 7:56 AM [facility] Chloride 97 96 - 110 mmol/L LAB CHEMISTRY METHOD 09/28/2024 7:56 AM [facility] CO2 32 21 - 32 mmol/L LAB CHEMISTRY METHOD 09/28/2024 7:56 AM [facility] Anion Gap 6 3 - 11 LAB CHEMISTRY METHOD 09/28/2024 7:56 AM [facility] Glucose 98 70 - 100 mg/dL LAB CHEMISTRY METHOD 09/28/2024 7:56 AM [facility] BUN 17 5 - 25 mg/dL LAB CHEMISTRY METHOD 09/28/2024 7:56 AM [facility] Creatinine 0.69 0.50 - 1.10 mg/dL LAB CHEMISTRY METHOD 09/28/2024 7:56 AM [facility] eGFR 92 >=60 mL/min/1. 73m2 LAB CHEMISTRY METHOD 09/28/2024 7:56 AM [facility] Comment:Calculation based on the Chronic Kidney Disease Epidemiology Collaboration (CKD-EPI) equation refit without adjustment for race. BUN/Creatinine Ratio 24.6 LAB CHEMISTRY METHOD 09/28/2024 7:56 AM [facility] Calcium 9.4 8.5 - 10.5 mg/dL LAB CHEMISTRY METHOD 09/28/2024 7:56 AM EDT [facility] AST (SGOT) 77(H) 10 - 42 unit/L LAB CHEMISTRY METHOD 09/28/2024 7:56 AM T [facility] ALT (SGPT) 30 10 - 60 unit/L LAB CHEMISTRY METHOD 09/28/2024 7:56 AM [facility] Alkaline Phosphatase 69 42 - 121 unit/L LAB CHEMISTRY METHOD 09/28/2024 7:56 AM T [facility] Total Protein 6.0 6.0 - 8.0 g/dL LAB CHEMISTRY METHOD 09/28/2024 7:56 AM [facility] Albumin 3.4 3.2 - 5.0 g/dL LAB CHEMISTRY METHOD 09/28/2024 7:56 AM [facility] Total Bilirubin 0.5 0.0 - 1.4 mg/dL LAB CHEMISTRY METHOD 09/28/2024 7:56 AM [facility] Blood Venous blood specimen / Unknown Venipuncture / Unknown 09/28/2024 6:01 AM EDT 09/28/2024 6:24 AM EDT Katelyn VIDAL LAB BLOOD ORDERABLES Hoa l Result [facility] [address] [place] [address], * (ABNORMAL) Drug abuse screen 8a panel, urine (09/27/2024 4:23 PM EDT) Amphetamine Screen, Ur Negative Negative LAB CHEMISTRY METHOD 7:18 PM EDT [facility] Comment:Certain OTC medicati ons containing ephedrine, phenylephrine, pseudoephedrine and phenylpropanolamine can cause false positive results. Barbiturate Screen, Ur Negative Negative LAB CHEMISTRY METHOD 7:18 PM EDT [facility] Benzodiazepine Screen, Ur Negative Negative LAB CHEMISTRY METHOD 5 7:18 PM EDT [facility] Cocaine Screen, Ur Negative Negative LAB CHEMISTRY METHOD 5 7:18 PM EDT [facility] Opiate Screen, Ur Positive(A ) Negative LAB CHEMISTRY METHOD 5 7:18 PM EDT [facility] Cannabinoid (THC) Screen, Ur Negative Negative LAB CHEMISTRY METHOD 5 7:18 PM EDT [facility] Comment:Specimens from patie nts taking pantoprazole sodium (Protonix) have been shown to produce false positive results. Oxycodone Screen, Ur Negative Negative LAB CHEMISTRY METHOD 5 7:18 PM EDT [facility] Fentanyl, Ur Negative Negative LAB CHEMISTRY METHOD 5 7:18 PM EDT [facility] Urine Urine specimen obtained by clean catch procedure / Unknown Non-blood Collection / Unknown 09/27/2024 4:23 PM EDT 09/27/2024 6:30 PM EDT Narrative [facility] - 09/27/2024 7:18 [...] VIDAL LAB URINE ORDERABLES Hoa chavez Result [facility] [address] [place] [address], * (ABNORMAL) Aldolase (09/27/2024 1:41 PM EDT) Aldolase 20.6(H) 1.2 - 7.6 U/L 10/03/2024 9:54 AM EDT [facility] Comment: Test performed at [facility], [address], [place] [address] Alisha Jesus MD, PhD - Grease Man Blood Venous blood specimen / Unknown Venipuncture / Unknown 09/27/2024 1:41 PM EDT 09/27/2024 2:09 PM EDT us Katelyn Potts PA LAB BLOOD ORDERABLES Hoa l Result [facility] [address] [place] [address] * (ABNORMAL) TRANSTHORACIC ECHOCARDIOGRAM (TTE) COMPLETE (09/27/2024 1:21 PM EDT) Left Atrium Minor [place] 5.3 cm CV PACS Left Atrium Major [place] 5.3 cm CV PACS LA Area Sys [...] Volume 64 mL CV PACS MV Deceleration [place] 4.0 m/s2 CV PACS E Wave Deceleration [...] LAB CHEMISTRY METHOD 09/27/2024 11:[address] [facility] Blood Venous blood specimen / Unknown Venipuncture / Unknown 09/27/2024 10:20 AM EDT 09/27/2024 10:26 AM EDT Narrative [facility] - 09/27/2024 11:02 AM EDT High levels of biotin in samples may falsely decrease hsTroponin values. Use caution when interpreting hsTroponin results in patients taking biotin who exhibit renal impairment (eGFR <60) or in patients taking more than 20 mg/day of biotin. Katelyn VIDAL LAB BLOOD ORDERABLES Hoa chavez Result [facility] [address] [place] [address], [place] [phone] * (ABNORMAL) Lipid panel with reflex to direct LDL (09/27/2024 10:20 AM EDT) Only the most recent of2 resultswithin the time period is included. Cholesterol 234(H) 0 - 200 mg/dL LAB CHEMISTRY METHOD 09/27/2024 12:46 PM EDT [facility] Triglycerides 71 0 - 150 mg/dL LAB CHEMISTRY METHOD [facility]/27[facility]2024 [facility] HDL 79 >=40 mg/dL LAB CHEMISTRY METHOD 09/27/2024 12:46 PM [facility] LDL Calculated 141(H) 0 - 100 mg/dL LAB CHEMISTRY METHOD 09/27/2024 12:[facility] VLDL Cholesterol Koby 14.2 mg/dL LAB CHEMISTRY METHOD 09/27/2024 12:46 PM [facility] Non HDL Chol. (LDL+VLDL) 155(H) <145 mg/dL LAB CHEMISTRY METHOD 09/27/2024 12:[facility] Chol/HDL Ratio 3.0 0.0 - 4.4 LAB CHEMISTRY METHOD 09/27/2024 12:46 PM [facility] Blood Venous blood specimen / Unknown Venipuncture / Unknown 09/27/2024 10:20 AM EDT 09/27/2024 10:25 AM EDT Katelyn Meaghandarshan[place]ieran [place] LAB BLOOD ORDERABLES Hoa l Result [facility] [address] [place] [address], [place] [phone] * Sedimentation rate (09/27/2024 10:20 AM EDT) Sed Rate 23 0 - 30 mm/hr LAB HEMETOLOGY METHOD 09/27/2024 10:39 AM EDT [facility] Blood Venous blood specimen / Unknown Venipuncture / Unknown 09/27/2024 10:20 AM EDT 09/27/2024 10:25 AM EDT Simbagloria [place] LAB BLOOD ORDERABLES Hoa l Result Performing Organization Address [facility]/ZIP Co de Phone Number [facility] [address] [place] [address], * C reactive protein, high sensitivity (09/27/2024 10:20 AM EDT) CRP, High Sensitivity 21.90 mg/L LAB CHEMISTRY METHOD 09/27/2024 11:35 AM EDT [facility] Comment: Cardio CRP [...] MD LAB BLOOD ORDERABLES Final Resul t [facility] [address] [place] [address], * (ABNORMAL) Lipase (09/27/2024 10:20 AM EDT) Pathologist [facility] Lipase 12(L) 13 - 75 unit/L LAB CHEMISTRY METHOD 09/27/2024 10:57 AM EDT [facility] Blood Venous blood specimen / Unknown Venipuncture / Unknown 09/27/2024 10:20 AM EDT 09/27/2024 10:25 AM EDT Katelyn VIDAL LAB BLOOD ORDERABLES Hoa l Result Performing Organization Address City/[facility]/ZIP Co de Phone Number [facility] [address] [place] [address], * (ABNORMAL) Hepatic function panel (09/27/2024 10:20 AM EDT) Pathologist [facility] Total Protein 6.8 6.0 - 8.0 g/dL LAB CHEMISTRY METHOD 09/27/2024 10:57 AM EDT [facility] Albumin 3.8 3.2 - 5.0 g/dL LAB CHEMISTRY METHOD 09/27/2024 10:57 AM EDT [facility] Total Bilirubin 0.5 0.0 - 1.4 mg/dL LAB CHEMISTRY METHOD 09/27/2024 10:57 AM EDT [facility] Bilirubin, Direct 0.1 0.0 - 0.3 mg/dL LAB CHEMISTRY METHOD 09/27/2024 10:57 AM EDT [facility] Bilirubin, Indirect 0.4 0.0 - 1.1 mg/dL LAB CHEMISTRY METHOD 09/27/2024 10:57 AM EDT [facility] ALT (SGPT) 32 10 - 60 unit/L LAB CHEMISTRY METHOD 09/27/2024 10:57 AM EDT [facility] AST (SGOT) 86(H) 10 - 42 unit/L LAB CHEMISTRY METHOD 09/27/2024 10:57 AM EDT [facility] Alkaline Phosphatase 78 42 - 121 unit/L LAB CHEMISTRY METHOD 09/27/2024 10:57 AM EDT [facility] Blood Venous blood specimen / Unknown Venipuncture / Unknown 09/27/2024 10:20 AM EDT 09/27/2024 10:25 AM EDT Katelyn VIDAL LAB BLOOD ORDERABLES Hoa l Result Performing Organization Address City/[facility]/ZIP Co de Phone Number [facility] [address] [place] [address], [place] [phone] * ECG 12 lead (09/27/2024 10:00 AM EDT) Only the most recent of2 resultswithin the time period is included. Ventricular Rate ECG 66 BPM GEMUSE Atrial Rate 66 BPM GEMUSE P-R Interval 146 ms GEMUSE QRS Duration 86 ms GEMUSE Q-T Interval 392 ms GEMUSE QTc 410 ms GEMUSE P Wave [place] 47 degrees GEMUSE R [place] -6 degrees GEMUSE T [place] 19 degrees GEMUSE ECG Interpretation Normal sinus [...] Hold for add-ons. 09/27/2024 10:01 AM EDT [facility] Comment:Auto resulted. Blood Venous blood specimen / Unknown 09/27/2024 8:11 AM EDT 09/27/2024 8:17 AM EDT us Yuval Lake MD LAB BLOOD ORDERABLES F inal Result Performing Organization Address [facility]/ZIP Co de Phone Number [facility] [address] [place] [address], [place] [phone] * JAIME IFA with titer and pattern (09/27/2024 8:11 AM EDT) [facility] JAIME Negative Negative 09/27/2024 2:53 PM EDT [facility] Blood Venous blood specimen / Unknown 09/27/2024 8:11 AM EDT 09/27/2024 8:17 AM EDT Katelyn VIDAL LAB BLOOD ORDERABLES Hoa l Result Performing Organization Address [facility] Co de Phone Number [facility] [address] [place] [address], [place] [phone] * (ABNORMAL) B-type natriuretic peptide (09/27/2024 8:11 AM EDT) [facility] BNP 120(H) <=100 pcg/mL LAB CHEMISTRY METHOD 09/27/2024 8:59 AM EDT [facility] Blood Venous blood specimen / Unknown Venipuncture / Unknown 09/27/2024 8:11 AM EDT 09/27/2024 8:16 AM EDT Katelyn VIDAL LAB BLOOD ORDERABLES Hoa l Result Performing Organization Address City/[facility]/ZIP Co de Phone Number [facility] [address] [place] [address], [place] [phone] * (ABNORMAL) Creatine kinase and CKMB (09/27/2024 8:11 AM EDT) [facility] Total CK 3,151(H) 22 - 269 unit/L LAB CHEMISTRY METHOD 09/27/2024 9:49 AM EDT [facility] Comment:Results verified by repeat testing CK-MB 6.1(H) 1.0 - 3.6 ng/mL LAB CHEMISTRY METHOD 09/27/2024 9:49 AM EDT [facility] CK-MB Index 0.0 0.0 - 5.0 LAB CHEMISTRY METHOD 09/27/2024 9:49 AM EDT [facility] Blood Venous blood specimen / Unknown 09/27/2024 8:11 AM EDT 09/27/2024 8:17 AM EDT Katelyn Potts [place] LAB BLOOD ORDERABLES Hoa chavez Result [facility] [address] [place] [address], [place] [phone] * (ABNORMAL) Complete blood count (09/27/2024 6:19 AM EDT) [facility] WBC 7.8 4.8 - 10.8 K/mcL LAB HEMETOLOGY METHOD 09/27/2024 6:50 AM EDT [facility] RBC 3.80 3.80 - 4.80 M/mcL LAB HEMETOLOGY METHOD 09/27/2024 6:50 AM EDT [facility] Hemoglobin 10.4(L) 11.5 - 16.0 g/dL LAB HEMETOLOGY METHOD 09/27/2024 6:50 AM EDT [facility] Hematocrit 33.4(L) 35.0 - 47.0 % LAB HEMETOLOGY METHOD 09/27/2024 6:50 AM EDT [facility] MCV 87.4 79.0 - 98.0 FL LAB HEMETOLOGY METHOD 09/27/2024 6:50 AM EDT [facility] MCH 27.2 27.0 - 32.0 pcg LAB HEMETOLOGY METHOD 09/27/2024 6:50 AM EDT [facility] MCHC 31.1(L) 32.0 - 37.0 g/dL LAB HEMETOLOGY METHOD 09/27/2024 6:50 AM EDT [facility] RDW 13.9 11.0 - 15.0 % LAB HEMETOLOGY METHOD 09/27/2024 6:50 AM EDT [facility] Platelets 208 130 - 400 K/mcL LAB HEMETOLOGY METHOD 09/27/2024 6:50 AM EDT [facility] MPV 9.9 7.0 - 11.0 FL LAB HEMETOLOGY METHOD 09/27/2024 6:50 AM EDT [facility] NRBC 0.0 <1.0 % LAB HEMETOLOGY METHOD 09/27/2024 6:50 AM EDT [facility] NRBC Absolute 0.00 <0.10 K/mcL LAB HEMETOLOGY METHOD 09/27/2024 6:50 AM T [facility] Blood Venous blood specimen / Unknown Venipuncture / Unknown 09/27/2024 6:19 AM EDT 09/27/2024 6:29 AM EDT us Idris Chawla MD LAB BLOOD ORDERABLES Final Res ult [facility] [address] [place] [address], * (ABNORMAL) Urinalysis with reflex microscopic and culture (09/26/2024 9:44 PM EDT) Specific [place] Urine 1.019 1.003 - 1.030 LAB URINALYSIS - AUTOMATED METHOD 09/26/2024 9:57 PM [facility] pH, Urine 5.5 5.0 - 8.0 pH LAB URINALYSIS - AUTOMATED METHOD 09/26/2024 9:57 PM [facility] Leukocytes, Urine Small(A) Negative LAB URINALYSIS - AUTOMATED METHOD 09/26/2024 9:57 PM [facility] Nitrite, Urine Negative Negative LAB URINALYSIS - AUTOMATED METHOD 09/26/2024 9:57 PM [facility] Protein, Urine Negative <=Trace mg/dL LAB URINALYSIS - AUTOMATED METHOD 09/26/2024 9:57 PM [facility] Glucose, Urine Negative Negative mg/dL LAB URINALYSIS - AUTOMATED METHOD 09/26/2024 9:57 PM [facility] Ketones, Urine Trace(A) Negative mg/dL LAB URINALYSIS - AUTOMATED METHOD 09/26/2024 9:57 PM [facility] Urobilinogen, Urine 0.2 0.2 - 1.0 mg/dL LAB URINALYSIS - AUTOMATED METHOD 09/26/2024 9:57 PM [facility] Bilirubin, Urine Negative Negative LAB URINALYSIS - AUTOMATED METHOD 09/26/2024 9:57 PM [facility] Blood, Urine Negative Negative LAB URINALYSIS - AUTOMATED METHOD 09/26/2024 9:57 PM [facility] RBC, Urine 2.4 0 - 4 /HPF LAB URINALYSIS - AUTOMATED METHOD 09/26/2024 9:57 PM [facility] WBC, Urine 3.0 0 - 4 /HPF LAB URINALYSIS - AUTOMATED METHOD 09/26/2024 9:57 PM [facility] Squamous Epithelial, Urine 11 0 - 60 /LPF LAB URINALYSIS - AUTOMATED METHOD 09/26/2024 9:57 PM EDT [facility] Bacteria, Urine Negative Negative /HPF LAB URINALYSIS - AUTOMATED METHOD 09/26/2024 9:57 PM EDT [facility] Hyaline Casts, Urine 1.2 0 - 3 /LPF LAB URINALYSIS - AUTOMATED METHOD 09/26/2024 9:57 PM EDT [facility] Urine Urine specimen obtained by clean catch procedure / Unknown Non-blood Collection / Unknown 09/26/2024 9:44 PM EDT 09/26/2024 9:49 PM EDT Melissa VIDAL LAB URINE ORDERABLES Final Resul t Performing Organization Address [facility]/ZIP Co de Phone Number [facility] [address] [place] [address], [place] [phone] * Arocs urine culture tube (09/26/2024 9:44 PM EDT) Extra Tube Hold for add-ons. 09/26/2024 11:01 PM EDT [facility] Comment:Auto resulted. Urine Urine specimen obtained by clean catch procedure / Unknown Non-blood Collection / Unknown 09/26/2024 9:44 PM EDT 09/26/2024 9:49 PM EDT Melissa VIDAL LAB URINE ORDERABLES Final Resul t [facility] [address] [place] [address], [place] [phone] * Culture urine (09/26/2024 9:44 PM EDT) Culture, Urine 10,000-49,000 CFU/mL Mixed bacterial morphotypes present suggestive of possible contamination during collection. Suggest appropriate recollection if clinically indicated. 09/27/2024 1:18 PM EDT [facility] Urine Urine specimen obtained by clean catch procedure / Unknown Non-blood Collection / Unknown 09/26/2024 9:44 PM EDT 09/26/2024 9:57 PM EDT us Melissa VIDAL LAB MICROBIOLOGY - GENERAL ORDER [id number] Final Result [facility] [address] [place] [address], * MR Brain wo Contrast (09/26/2024 6:19 [...] LAB HEMETOLOGY METHOD 09/26/2024 12:27 PM EDT [facility] RBC 4.00 3.80 - 4.80 M/mcL LAB HEMETOLOGY METHOD [facility]24 [facility] 11.0(L) 11.5 - 16.0 g/dL LAB HEMETOLOGY METHOD 09/26[facility]2024 12[facility] Hemat[facility]rit 36.4 35.0 - 47.0 % LAB HEMETOLOG[facility] M[facility] 90.1 79.0 - 98.0 FL LAB HEMETOLOGY METHOD 09/26/2024 12:27 PM [facility] LAB MCH 27.2 27.0 - 32.0 pcg LAB HEMETOLOGY METHOD 09/26/2024 12:27 PM [facility] LAB MCHC 30.2(L) 32.0 - 37.0 g/dL LAB HEMETOLOGY METHOD 09/26/2024 12:27 PM [facility] LAB RDW 13.6 11.0 - 15.0 % LAB HEMETOLOGY METHOD 09/26/2024 12:27 PM [facility] LAB Platelets 218 130 - 400 K/mcL LAB HEMETOLOGY METHOD 09/26/2024 12:27 PM [facility] LAB MPV 9.4 7.0 - 11.0 FL LAB HEMETOLOGY METHOD 09/26/2024 12:27 PM [facility] LAB NRBC 0.0 <1.0 % LAB HEMETOLOGY METHOD 09/26/2024 12:27 PM [facility] LAB NRBC Absolute 0.00 <0.10 K/mcL LAB HEMETOLOGY METHOD 09/26/2024 12:27 PM [facility] LAB Neutrophils Relative 86.7 % LAB HEMETOLOGY METHOD 09/26/2024 12:27 PM [facility] LAB Lymphocytes Relative 6.4 % LAB HEMETOLOGY METHOD 09/26/2024 12:27 PM [facility] LAB Monocytes Relative 6.1 % LAB HEMETOLOGY METHOD 09/26/2024 12:27 PM [facility] LAB Eosinophils Relative 0.1 % LAB HEMETOLOGY METHOD 09/26/2024 12:27 PM [facility] LAB Basophils Relative 0.1 % LAB HEMETOLOGY METHOD 09/26/2024 12:27 PM [facility] LAB Immature Granulocytes Relative 0.6 % LAB HEMETOLOGY METHOD 09/26/2024 12:27 PM [facility] LAB Neutrophils Absolute 7.44(H) 1.50 - 7.00 K/mcL LAB HEMETOLOGY METHOD 09/26/2024 12:27 PM [facility] LAB Lymphocytes Absolute 0.55(L) 1.00 - 5.00 K/mcL LAB HEMETOLOGY METHOD 09/26/2024 12:27 PM [facility] LAB Monocytes Absolute 0.52 0.20 - 1.00 K/mcL LAB HEMETOLOGY METHOD 09/26/2024 12:27 PM [facility] LAB Eosinophils Absolute 0.01 0.00 - 0.50 K/mcL LAB HEMETOLOGY METHOD 09/26/2024 12:27 PM EDT [facility] LAB Basophils Absolute 0.01 0.00 - 0.20 K/[facility] LAB HEMETOLOGY METHOD 09/26/2024 12:27 PM EDT [facility] LAB Immature Granulocytes Absolute 0.05(H) 0.00 - 0.03 K/[facility] LAB HEMETOLOGY METHOD 09/26/2024 12:27 PM EDT [facility] LAB Blood Venous blood specimen / Unknown Venipuncture / Unknown 09/26/2024 12:08 PM EDT 09/26/2024 12:16 PM EDT Maricarmen Hatfield DO LAB BLOOD ORDERABLES Final Result Performing Organization Address [facility]/ZIP Co de Phone Number [facility] [address] [place] [address], [place] [phone] * Activated partial thromboplastin time (09/26/2024 12:08 PM EDT) aPTT 29.7 24.1 - 39.3 sec LAB COAGULATION METHOD 09/26/2024 12:29 PM EDT [facility] LAB Blood Venous blood specimen / Unknown Venipuncture / Unknown 09/26/2024 12:08 PM EDT 09/26/2024 12:16 PM EDT Maricarmen Hatfield DO LAB BLOOD ORDERABLES Final Result Performing Organization Address City/[facility]/ZIP Co de Phone Number [facility] [address] [place] [address], [place] [phone] * Prothrombin time with INR (09/26/2024 12:08 PM EDT) Protime 11.8 10.6 - 13.9 sec LAB COAGULATION METHOD 09/26/2024 12:29 PM EDT [facility] LAB INR 0.9 LAB COAGULATION METHOD 09/26/2024 12:29 PM EDT [facility] Blood Venous blood specimen / Unknown Venipuncture / Unknown 09/26/2024 12:08 PM EDT 09/26/2024 12:16 PM EDT Maricarmen Hatfield DO LAB BLOOD ORDERABLES Final Result Performing Organization Address [facility] Co de Phone Number [facility] [address] [place] [address], [place] [phone] * Thyroid stimulating hormone (09/26/2024 12:08 PM EDT) TSH 1.29 0.40 - 4.00 mcIU/mL LAB CHEMISTRY METHOD 09/26/2024 6:39 PM EDT [facility] Blood Venous blood specimen / Unknown Venipuncture / Unknown 09/26/2024 12:08 PM EDT 09/26/2024 12:16 PM EDT us Melissa VIDAL LAB BLOOD ORDERABLES Final Resul t Performing Organization Address [facility] de Phone Number [facility] [address] [place] [address], [place] [phone] * Thyroxine free (09/26/2024 12:08 PM EDT) Free T4 1.14 0.70 - 1.80 ng/dL LAB CHEMISTRY METHOD 09/26/2024 6:39 PM EDT [facility] Blood Venous blood specimen / Unknown Venipuncture / Unknown 09/26/2024 12:08 PM EDT 09/26/2024 12:16 PM EDT us Melissa VIDAL LAB BLOOD ORDERABLES Final Resul t Performing Organization Address City/[facility]/ZIP Co de Phone Number [facility] [address] [place] [address], [place] [phone] * (ABNORMAL) POCT Glucose, blood (09/26/2024 11:46 AM EDT) Glucose POCT 126(H) 70 - 100 mg/dL 09/26/2024 11:[address] [facility] Blood Capillary blood specimen / Unknown 09/26/2024 11:46 AM EDT 09/26/2024 11:48 AM EDT us Maricarmen Hatfield DO LAB POINT OF CARE T EST DOCKED DEVICE UNSOLICITED RESULTS Final Result [facility] [address] [place] [address], [place] [phone] * CT Angio Head/Neck Stroke wo and/or w Contrast (09/26/2024 11:24 AM EDT) Anatomical Region Laterality Modality Head and Neck Computed Tomogra phy 09/26/2024 11:5 7 AM EDT Impressions 09/26/2024 12:06 PM EDT 1. No large vessel occlusion, intracranial aneurysm, dissection, or hemodynamically significant cervical carotid stenosis. 2. 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 Telerad PA ([id number]) -------- FINAL REPORT -------- Dictated By: Jhoana Chase Dictated Date: 09/26/2024 11:57 ET Assigned Physician: Jhoana Chase Reviewed and Electronically Signed By: Jhoana Chase Signed Date: 09/26/2024 12:06 ET Workstation ID: [id number] Transcribed By: Self Edit Transcribed Date: 09/26/2024 [...] was also performed. DLP: 2522.84 mGy/cm GE Aware Labspeed VCT Iterative reconstruction technique FINDINGS: CTA: INTRACRANIAL VASCULATURE: The bilateral A1 and M1 segments are widely patent. The more distal branches of the anterior and middle cerebral arteries also appear patent. The basilar artery is widely patent and terminates in the bilateral desk assistant. The right WOOD LATHER is partially supplied by the right internal [...] was also performed. DLP: 2522.84 mGy/cm [employer]ed VCT Iterative reconstruction technique FINDINGS: CTA: INTRACRANIAL VASCULATURE: The bilateral A1 and M1 segments are widelypatent. The more distal branches of the anterior and middle cerebralarteries also appear patent. The basilar artery is widely patent andterminates in the bilateral desk assistant. The right WOOD LATHER is partially supplied bythe right internal carotid [...] measuring 3.4 cm in diameter. Telerad PA ([id number]) -------- FINAL REPORT -------- Dictated By: Jhoana Chase Dictated Date: 09/26/2024 11:57 ET Assigned Physician: Jhoana Chase Reviewed and Electronically Signed By: Jhoana Chase Signed Date: 09/26/2024 12:06 ET Workstation ID: [id number] Transcribed By: Self Edit Transcribed Date: 09/26/2024 [...] of interpretation on 09/26/24 by secure message (Revelens). Telerad YOUNG ([id number]) A Critical Document Only message has been documented for the office of MARICARMEN HATFIELD in the [employer] system on 09/26/2024 11:45 AM, Message ID [id number]. -------- FINAL REPORT -------- Dictated By: Jhoana Chase Dictated Date: 09/26/2024 11:41 ET Assigned Physician: Jhoana Chase Reviewed and Electronically Signed By: Jhoana Chase Signed Date: 09/26/2024 11:45 ET Workstation ID: [id number] Transcribed By: Self Edit Transcribed Date: 09/26/2024 11:41 ET Narrative 09/26/2024 11:45 AM EDT History: Stroke. Severe headache. Nausea. Altered mental status. Comparison: 09/16/16 Technique: Contiguous axial images were obtained at 2.5 mm intervals through the posterior fossa and at 5 mm intervals through the remainder of the brain without intravenous contrast. DLP: 808.85 mGy/cm GE TMpeed VCT Iterative reconstruction technique Findings: The ventricular [...] without intravenous contrast. DLP: 808.85 mGy/cm GE TMpeed VCT Iterative reconstruction technique Findings: The ventricular [...] time ofinterpretation on 09/26/24 by secure message ([employer]velens). Telerad YOUNG ([id number]) A Critical Document Only message has been documented for the office ofMARICARMEN HATFIELD in the [employer] system on09/26/2024 11:45 AM, Message ID [id number]. -------- FINAL REPORT -------- Dictated By: Jhoana Chase Dictated Date: 09/26/2024 11:41 ET Assigned Physician: Jhoana Chase Reviewed and Electronically Signed By: Jhoana Chase Signed Date: 09/26/2024 11:45 ET Workstation ID: [id number] Transcribed By: Self Edit Transcribed Date: 09/26/2024 [...] AM EDT Narrative 06/22/2017 1:[address] [facility] Diagnostic Imaging Department [address] [place] [address] Patient: EDUARDO NEGEL D.O.B./Age/Sex: 1950 - 66 - F Unit#: [id number] Location/Status: SPDIMAM/REG CLI Mnemonic[facility] Ordering Physician: LITA TORRES MD [facility] Dexa Axial Skeleton - 06/22/17 - 30 [facility] Dexa Axial Skeleton INDICATION: POST [...] placing the patient at risk for fracture. [id number] A report detailing these results has been enclosed. Dictating Physician: BEN GASTON MD Electronically Signed by: BEN GASTON MD Dic Date/Time: 06/22/171353 Sign date/Time: 06/22/17 135 Procedure Note Ben Gaston MD - 03/31/[address] [facility] Diagnostic Imaging Department [address] [place] [address] Patient: EDUARDO ENGEL D.O.B./Age/Sex: 1950 - 66 -F Unit#: [id number] Location/Status: SPDIMAM/REG CLI Mnemonic/[facility] Ordering Physician: LITA TORRES MD [facility] Dexa Axial Skeleton - 06/22/17 - 729 [facility] Dexa Axial Skeleton INDICATION: POST MENOPAUSE Technique: Bone densitometry was performed utilizing dual energy x-ray absorptiometry (DEXA). The lumbar spine is evaluated in the AP projectionfrom L1 through L4. The proximal femora are evaluated in the AP projection bilaterally. There are [facility] prior [facility] Findings: AP spine: Bone mineral density: 0.983 gm/cm2 T-score: -1.5 Femoral total (mean, bilateral): Bone mineral density: 0.704 gm/cm2 T-score: -2.4 Left femoral neck: Bone mineral density: 0.618 gm/cm2 T-score: -3.0 IMPRESSION: Findings suggesting osteoporosis, placing the patient at risk forfracture. 21685 A report detailing these results has been [...] ID:[id number] Group ID:[employer] Type:Not on file Address: [place] [address] [place] [id number] Advance Directives * Full Code - Default [...] currently active code status orders. Care Teams Director Of District Office Relationship Specialty Start Date End Date Addi Holland NP [address] [place], [place] PCP - General Family Medicine 03/04/21
--- OUTSIDE RECORDS SUMMARY | 2024-12-14 06:26 | XMS_ITS | Patient Health Record ---
Author Organization [employer]. Address [address] [place] [address] Care Team Providers Care Supervisor Gear Repair Name Role Phone Macario Scott Primary Care Provider Allergies Allergen (clinical drug ingredient) Drug/Non Drug Allergy documented on EMR Reaction Allergy Type Onset Date Status tramadol Tramadol rash Drug Allergy Active Results Component Value Reference Range Notes Occult Blood, Fecal, IA-LAB BRENNON Reviewed date:05/04/2024 04:08:08 PM Interpretation: Performing Lab:[facility] [address] [id number], Phone - [phone], Director - Bree Notes/Report: Occult Blood, Fecal, IA Negative Negative EKG Electrocardiogram Reviewed date:03/24/2024 02:15:49 PM Interpretation: Performing Lab: Notes/Report: TSH reflex to T4 Reviewed date:03/31/2024 08:44:59 AM Interpretation: Performing Lab:[facility] [address] [id number], Phone - [phone], - Bree Notes/Report: TSH 1.770 0.450-4.500 uIU/mL Occult Blood, Fecal, IA-LAB BRENNON Reviewed date:03/31/2024 08:45:03 AM Interpretation: Performing Lab:[facility] [address] [id number], Phone - [phone], - Bree Notes/Report: Occult Blood, Fecal, IA Negative Negative Microalbumin/Creatinine Rati o, Random Urine-LC Reviewed date:03/31/2024 08:45:06 AM Interpretation: Performing Lab:[facility] [address] [id number], Phone - [phone], Director - Bree Notes/Report: Creatinine, Urine 122.7 Not Estab. mg/dL Albumin, Urine 12.5 Not Estab. ug/mL Alb/Creat Ratio 10 0-29 mg/g creat Normal: 0 - 29 Moderately increased: 30 - 300 Severely increased: >300 CBC With Differential/Platel et-LC-Q Reviewed date:03/31/2024 08:45:13 AM Interpretation: Performing Lab:[facility] [place], [address] [place] [id number], Phone - [phone], Director - Bree Notes/Report: WBC 7.0 3.4-10.8 [...] Immature Grans (Abs) 0.0 0.0-0.1 x10E3/uL Urinalysis, Cvxkfkeb-KV-S Reviewed date:03/31/2024 08:45:17 AM Interpretation: Performing [facility], [address] [place] [id number], Phone - [phone], Director - Bree Notes/Report: Specific Kingsbury 1.020 1.005-1.030 pH 7.0 5.0-7.5 Urine-Color Yellow [...] 14+eGFR-LC-Q Reviewed date:03/31/2024 08:45:20 AM Interpretation: Performing Lab:[facility] [address] [id number], Phone - [phone], Director - Bree Notes/Report: Glucose 82 70-99 [...] Reviewed date:03/31/2024 08:45:24 AM Interpretation: Performing Lab:[facility] [address] [id number], Phone - [phone], Director - Bree Notes/Report: Cholesterol, Total 222 100-199 mg/dL Triglycerides 65 0-149 mg/dL HDL Cholesterol 76 >39 mg/dL VLDL Cholesterol Koby 11 5-40 mg/dL LDL Chol Calc ([facility]) 135 0-99 mg/dL CBC With Differential/Platel et-LC-Q Reviewed date:04/26/2024 08:51:11 AM Interpretation: [facility]forming [facility] [address] [place] [id number], Phone - [phone], Director - Bree Notes/Report: WBC 5.5 3.4-10.8 [...] Immature Grans (Abs) 0.0 0.0-0.1 x10E3/uL Urinalysis, Kxmqslou-YQ-A Reviewed date:04/26/2024 08:51:11 AM Interpretation: Performing Lab:[facility] [address] [place] [id number], Phone - [phone], Director - Bree Notes/Report: Specific Kingsbury 1.016 1.005-1.030 pH 7.0 5.0-7.5 Urine-Color Yellow [...] Reviewed date:04/26/2024 08:51:11 AM Interpretation: Performing Lab:[facility] [place], [address] [place] [id number], Phone - [phone], Director - Bree Notes/Report: Glucose 94 70-99 [...] Reviewed date:04/26/2024 08:51:11 AM Interpretation: Performing Lab:[facility] [place], [facility], [place] [id number], Phone - [phone], Director - Bree Notes/Report: Cholesterol, Total 232 [...] nt Reviewed date:04/06/2024 12:00:17 PM Interpretation: Performing Lab:[address] [id number], Phone - [phone], Director - Bree Notes/Report: Interpretation Note Supplemental report is available. PDF . TSH reflex to T4 Reviewed date:04/26/2024 08:51:11 AM Interpretation: Performing Lab:[facility] [id number], Phone - [phone], Director - Bree Notes/Report: TSH 3.730 0.450-4.500 uIU/mL Microalb/Creat Ratio, Timed Ur-LC Reviewed date:04/26/2024 08:51:11 AM Interpretation: Performing Lab:[address] [id number], Phone - [phone], Director - Bree Notes/Report: Ur.Collec. Interval 0 Creatinine, Urine 86.5 Not Estab. mg/dL Albumin, Urine 3.9 Not Estab. ug/mL Alb/Creat Ratio 4.5 0.0-30.0 ug/mg creat Alb, U Excret. Rate 0.0-20.0 ug/min No to bakari volume submitted. Unable to calculate 24 hour result. Albumin,Ur mg/day TNP Unable to calculate result since non-numeric result obtained for component test. Cardiovascular Risk Assessme nt Reviewed date:04/26/2024 08:51:11 AM Interpretation: Performing Lab:[address] [id number], Phone - [phone], Director - Bree Notes/Report: Interpretation Note Supplemental report is available. PDF . Reason For Referral Reason If additional kathy ting is needed, please refer back to PCP. Please fax consult notes and/or results of procedure approved to [phone]. Thanks! ~Annual Eye Exam~ Diagnosis 1 Encounter for examin ation of eyes and vision without abnormal findings (Z01.00) Referral Organization [facility] Referring Provider First Name Macario Referring Provider Last Name Tyler Referring Provider Speciality General Pr actice Referred Provider [employer], [employer] Referred Provider Specialty Asp Net C Developer Referral Priority Routine Reason Please fax consul t notes and/or results of procedure approved to [phone]. Thanks! CONSULT ONLY - MANAGED CARE ~Annual Eye Exam~ Diagnosis 1 Encounter for examin ation of eyes and vision without abnormal findings (Z01.00) Referral Organization [facility] Referring Provider First Name Macario Referring Provider Last Name Tyler Referring Provider Speciality General Pr actice Referred Provider [employer], [employer] Referred Provider Specialty Asp Net C Developer Referral Priority Routine Medications Medication SIG (Take, [...] W/U Status Risk Notes Problem Mixed hyperlipidemia (955174148) Mixed hyperlipidemia (E78.2) Active confirmed Problem Chronic kidney disease due to hypertension (886531536857664) Hypertensive chronic kidney disease with stage 1 through stage 4 chronic kidney disease, or unspecified chronic kidney disease (I12.9) Active confirmed Problem Fibromyalgia (037943758) Fibromyalgia (M79.7) Active confirmed Problem Chronic insomnia (403424853) Chronic insomnia (F51.04) Active confirmed Problem Vertigo (097111854) Vertigo (R42) Active confirmed Problem Acquired hypothyroidism (572718047) Acquired hypothyroidism (E03.9) Active confirmed Problem Migraine (44215142) Migraine syndrome (G43.909) Active confirmed Problem Chronic kidney disease stage 2 (219384567) CKD (chronic kidney disease), stage II (N18.2) Active confirmed GFR 75 as per lab results from Problem Former smoker (1247301) Former smoker (Z87.891) Active confirmed Problem Moderate recurrent major depression (77212168) 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) Active confirmed Problem Uncomplicated severe persistent asthma (219981596) Severe persistent asthma without complication (J45.50) Active [...] N/A Encounters Encounter Location Date Provider Diagnosis [facility] [address] [address] 03/24/2024 Macario Scott [facility] [address] [facility] [address] [place] [address] 03/24/2024 Macario Scott [facility] [address] [facility] [address] [place] [address] 03/31/2024 Macario Scott [facility] [address] [facility] [address] [place] [address] 04/24/2024 Macario Scott Essential (primary) hypertension I10 ; Mixed hyperlipidemia E78.2 and Acquired hypothyroidism E03.9 [facility] [address] [facility] [address] [place] [address] 03/24/2024 Macario Scott Essential (primary) hypertension I10 [...] eyes and vision without abnormal findings Z01.[address] [place] [address] [place] [address] 03/31/2024 Macario Scott Hypertensive chronic kidney disease [...] of 25.0 to 25.9 in adult Z68.25 [facility] [address] [facility] [address] [place] [address] 05/02/2024 Macario Scott Severe persistent asthma without [...] Notes Treatment Clinical Notes Section Notes 05/02/2024 Moderate recurrent major depression (ICD-10 - F33.1) Recommended to patient avoid stressful situations. Will continue to monitor. 05/02/2024 Severe persistent asthma without complication (ICD-10 - J45.50) 04/24/2024 Essential (primary) hypertension (ICD-10 - I10) 03/31/2024 Hypertensive chronic kidney disease with stage [...] 75 as per lab results from 03/25/2024 03/24/2024 Essential (primary) hypertension (ICD-10 - I10) Blood pressure control and daily exercise as tolerated is recommended. Will continue to monitor. 03/24/2024 Migraine syndrome (ICD-10 - G43.909) 03/31/2024 Moderate recurrent major depression (ICD-10 - F33.1) Recommended to patient avoid stressful situations. Will continue to monitor. 03/24/2024 Mixed hyperlipidemia (ICD-10 - E78.2) 04/24/2024 Mixed hyperlipidemia (ICD-10 - E78.2) 05/02/2024 Hypertensive chronic kidney disease with stage [...] as per lab results from 03/25/2024 04/24/2024 Acquired hypothyroidism (ICD-10 - E03.9) 03/31/2024 Severe persistent asthma without complication (ICD-10 - J45.50) 03/24/2024 Severe persistent asthma without complication (ICD-10 - J45.50) 03/24/2024 Fibromyalgia (ICD-10 - M79.7) Oriented patient to take Ibuprofen over the counter for pain as needed, will continue to monitor. 03/31/2024 Mixed hyperlipidemia (ICD-10 - E78.2) 05/02/2024 Mixed hyperlipidemia (ICD-10 - E78.2) 05/02/2024 Migraine syndrome (ICD-10 - G43.909) 03/31/2024 Migraine syndrome (ICD-10 - G43.909) 03/24/2024 Acquired hypothyroidism (ICD-10 - E03.9) 05/02/2024 Acquired hypothyroidism (ICD-10 - E03.9) 03/31/2024 Overweight (BMI 25.0-29.9) (ICD-10 - E66.3) Avoid overeating, eating too quickly, eating high-fat foods, eating during stressful situations, or drinking too much alcohol or coffee. Counseled patient on adequate diet and exercise as tolerant. 03/24/2024 Moderate recurrent major depression (ICD-10 - F33.1) Recommended to patient avoid stressful situations. Will continue to monitor. 05/02/2024 Vertigo (ICD-10 - R42) 03/24/2024 Chronic insomnia (ICD-10 - F51.04) Continue treatment of Trazadone. 03/31/2024 Former smoker (ICD-10 - Z87.891) Patient quit smoking 03/31/2024 Body mass index (BMI) of 25.0 to 25.9 in adult (ICD-10 - Z68.25) 03/24/2024 Vertigo (ICD-10 - R42) 05/02/2024 Overweight (BMI 25.0-29.9) (ICD-10 - E66.3) Avoid overeating, eating too quickly, eating high-fat foods, eating during stressful situations, or drinking too much alcohol or coffee. Counseled patient on adequate diet and exercise. 05/02/2024 Former smoker (ICD-10 - Z87.891) Patient quit smoking 03/24/2024 Overweight (BMI 25.0-29.9) (ICD-10 - E66.3) Avoid overeating, eating too quickly, eating high-fat foods, eating during stressful situations, or drinking too much alcohol or coffee. Counseled patient on adequate diet and exercise. 05/02/2024 Body mass index (BMI) of 25.0 [...] Comprehensive Metabolic Panel 14+eGFR-LC -Q 05/02/2024 Urinalysis, Romzeueg-FB-B 05/02/2024 CBC With Differential/Dsrjfhjq-BN-E 04/13 Mammo SCREENING MAMMO DIGITAL, SOHEILA 05/02 Mammo SCREENING MAMMO DIGITAL, SOHEILA 03/24 CHEST X-RAY (PA/LATERAL) 05/02/2024 CHEST X-RAY (PA/LATERAL) 03/24/2024 Future Test Test Name Order Date Lipid Panel With LDL/HDL Ratio-LC 2024 Comprehensive Metabolic Panel 14+eGFR-LC -Q 09/25/2024 Urinalysis, Vdazgfrb-WN-T 09/25/2024 CBC With Differential/Qbdtihhx-YT-A 09/10 Insurance Providers Payer Name Payer Address Payer Phone Subscriber Number Group Number Insured Name Patient Relationship to Insured Coverage Start Date Coverage End Date [facility] [address] [address] [place] [phone] [id number] [place] Self - patient is the insured Medical (General) History Medical History History ICD Code hyperension asthma sinusitis migraines thyroid Surgical History Surgery Date(Month/Year) hystrectomy total 1996 right leg n/a nose n/a carpal tunel on both hands n/a
--- OUTSIDE RECORDS SUMMARY | 2024-12-14 06:26 | XMS_ITS | Encounter Summary ---
Author Organization [facility] Address [address] [place] [address] Phone Care Team Providers Care Assistant Product Manager Name Role Phone Addi Holland NP Primary Care Provider + Encounter Details Date Type Department Care Team (Late st Contact Info) Description 11/02/2023 Procedure Pass [facility] Endoscopy Admitting Dept Virtual Department [address] [place] [address] Social History Tobacco Use Types Packs/Day Years [...] on filedocumented in this encounter Care Teams Assistant Product Manager Relationship Specialty Start Date End Date Addi Holland NP [address] [place] [address] PCP - General Nurse Practitioner 02/17/23 documented as of this encounter Additional Source Comments The information contained in this document represents components of the legal health record. It is not the complete legal health record.[facility]
--- OUTSIDE RECORDS SUMMARY | 2024-12-14 06:27 | XMS_ITS | Clinical Summary ---
Author Organization [facility] Address [address] [address] Phone Care Team Providers Care Touring Production Manager Name Role Phone Addi Holland NP Primary Care Provider + Allergies Active Allergy Reactions Criticality Noted Date Comments Tramadol Medium 03/08/2023 Social History Tobacco Use Types Packs/Day Years [...] on file Sexual Orientation Not on file Plan of Treatment Health Maintenance Due Date Last Done Comments Adult Td,Tdap Booster 1951 LIPID PANEL 1951 DEPRESSION SCREENING 1963 SMOKING Hx and SMOKELESS TOB ACCO SCREENING 08/19/1964 HEPATITIS C SCREENING 08/19/1969 MAMMOGRAM 1991 COLOGUARD 08/19/1996 COLONOSCOPY 08/19/1996 COLORECTAL CANCER SCREENING 08/19/1996 FIT TEST 08/19/1996 FOBT 08/19/1996 SIGMOIDOSCOPY 08/19/1996 VIRTUAL COLONOSCOPY 08/19/1996 PNEUMOCOCCAL VACCINES (50+ y ears) (1 of 1 - PCV) 08/19/2001 ZOSTER VACCINES (1 of 2) 08/19/2001 OSTEOPOROSIS SCREENING INITI AL (ONE-TIME) 08/19/2016 COVID-19 VACCINE ( - 2023-2 5 season) 2023 RSV VACCINE (1 - 1-dose 75+ series) 08/19/2026 HEPATITIS A VACCINES Aged Out No long er eligible based on patient's age to complete this topic HIB VACCINES Aged Out No longer eligi ble based on patient's age to complete this topic MENINGOCOCCAL VACCINES (ACWY) Aged Out No longer eligible based on patient's age to complete this topic MENINGOCOCCAL VACCINES (B) Aged Out N o longer eligible based on patient's age to complete this topic Medical Devices Not on file Insurance MEDICARE PART A & [place] [address] [place] [address] MEDICARE REPLACEMENT MEDICARE PART A & B [employer] MEDICARE REPLACEMENT MEDICARE PART A & B [address] [employer] [place], [place] [address] MEDICARE REPLACEMENT MEDICARE PART A & B MEDICARE REPLACEMENT MEDICARE PART A & B [facility] MEDICARE REPLACEMENT [employer] [id number] MEDICARE PART A & B Care Teams Touring Production Manager Relationship Specialty Start Date End Date Adid Holland NP [address] [facility] [place] [address] PCP - General Nurse Practitioner 02/17/23 Additional Source Comments The information contained in this document represents components of the legal health record. It is not the complete legal health record.[facility]
--- OUTSIDE RECORDS SUMMARY | 2024-12-14 06:27 | XMS_ITS | Patient Health Record ---
Author Organization [facility] Address [address] [place] [address] Care Team Providers Care Engineering Geologist Name Role Phone AUTUMN PADILLA Primary Care Provider [phone] Allergies Allergen (clinical drug ingredient) Drug/Non Drug Allergy documented on EMR Reaction Allergy Type Onset Date Status tramadol Tramadol rash Drug Allergy Active Reason For Referral No Information Medications Medication SIG (Take, Route, Frequency, Duration) Notes Start Date End Date Status traZODone HCl 150 MG Tablet 1 tablet at bedtime Orally Once a day; Duration: 90 days Active Albuterol Sulfate HFA 108 (9 0 Base) MCG/ACT Aerosol Solution 1 puff as needed Inhalation every 4 hrs 02/29/2024 Active Acetaminophen-Codeine 300-30 MG Tablet 1 tablet as needed Orally every 6 hrs 02/29/2024 Active Pantoprazole Sodium 40 MG Tablet Delayed Release 1 tablet 1/2 to 1 hour before morning meal Orally Once a day; Duration: 90 days Active Rizatriptan Benzoate 10 MG Tablet 1 tablet Orally Once a day Active Meclizine HCl 12.5 MG Tablet 1 tablet as needed Orally every 12 hrs 02/29/2024 Active Cyclobenzaprine HCl 5 MG Tablet 1 tablet at bedtime as needed Orally Once a day; Duration: 90 days Active Vitamin A 3 MG (76650 UT) Capsule 1 capsule with food or milk Orally Once a day Active hydrOXYzine HCl 25 MG Tablet 1 tablet as needed Orally Once a day; Duration: 30 day(s) 02/29/2024 Active Atenolol 50 MG Tablet 1 tablet Orally On ce a day; Duration: 30 day(s) 02/29/2024 Active Social History Tobacco Use: Social History Observation Description Date Details (start date - stop date) Former Smoker 02/10/1970 - 02/10/1971 Social History Social History Social Info Question Answer Notes Tobacco Control (Standard) Tobacco use: Former smoker When did you start smoking? 02/10/1970 When did you stop smoking? 02/10/1971 How long has it been since you last smoked? Greater than 10 years Additional Findings: Tobacco non-user Current no nsmoker AUDIT-C (Standard) Did you have a drink containing alc ohol in the past year? No Points 0 Interpretation Negative Additional Details Category Social Info Options Details Social History Alcohol: denies alcoho l use Caffeine: denies caffeine use Tobacco Use former smoker, m any years ago for about a year Problems Problem Type SNOMED Code ICD Code Onset Dates Problem Status W/U Status Risk Notes Problem Opioid abuse (2872296) Opioid abuse, uncomplicated (F11.10) Active confirmed Acetaminophen -codeine 300 mg 1 tab since 11/2023 Consult notes 02/29/2024 Medical Record page 05/26 Problem Severe major depression, single episode, without psychotic features (92817754) Major depressive disorder, single episode, 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) Active confirmed PHQ-9 score 20 Severe Depression Problem Insomnia (115959712) Insomnia (G47.00) Active confirmed Problem Osteoporosis (17692172) Osteoporosis (M81.0) Active confirmed Problem Moderate recurrent major depression (97351973) 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 Active confirmed PHQ-9 score 20 Severe Depression Date 02/29/2024 [facility] page 5 the patient has Moderate recurrent major depression Problem Gastroesophageal reflux disease (307711679) GERD (K21.9) Active confirmed Vital Signs Temperature 97.4 degrees Fahrenheit 02/29/2024 Respiratory Rate 19 /min 02/29/2024 Blood pressure diastolic 89 02/29/2024 Oximetry 99 02/29/2024 Height 62 in 02/29/2024 Blood pressure systolic 130 02/29/2024 Weight 143 lbs 02/29/2024 BMI 26.15 kg/m2 02/29/2024 Encounters Encounter Location Date Provider Diagnosis [facility] [address] [place] [id number] 01/28/2024 AUTUMN BEASLEY [facility] [address] [place] [phone] 02/29/2024 AUTUMN BEASLEY Encounter for general adult [...] possible duration of sleep aides, and discussed remote computer terminal operator side effects of these. 02/29/2024 Osteoporosis (ICD-10 [...] Order Date CBC with Differential & Platelets (43259 9) [facility] 02/29/2024 TSH & Free T4 (686168) [facility] 4 UA Urinalysis with Reflex to Culture (37 4939) [facility] 02/29/2024 CMP Comp. Metabolic Panel (14) (054962) [facility] 02/29/2024 Lipid Panel (986231) [facility] 02/29/2024 Hemoglobin A1c 02/29/2024 Insurance Providers Payer Name Payer Address Payer Phone Subscriber Number Group Number Insured Name Patient Relationship to Insured Coverage Start Date Coverage End Date [facility] [address] [place] [address] [id number] Marie Engel Self - patient is the insured 4 4 Medical (General) History Medical History History ICD Code Insomnia Esophageal reflux oropharyngeal dyspnea Gastritis migraine dyslipidemia hypothyroidism osteoporosis anxiety essential hypertension Surgical History Surgery Date(Month/Year) shoulder surgery c section x2 hysterectomy nasal surgery carpal tunnel leg surgery left x2 NECK SURGERY
== END 2024-12-14 06:23 | disposition home or self-care (01) ==
LOC: CF 06:22
PROVIDERS: Visit Provider Internal Medicine
DX: M47.812 Spondylosis without myelopathy or radiculopathy, cervical region (principal)
CPT/HCPCS: 64633; 64634; J2003; J2795

== ENCOUNTER 2024-12-14 09:14 | Outpatient (AMB) | payer OTHER, SELFPAY ==
--- NOTE | 2024-12-14 09:21 | MHC.OFFVIS ---
Vital Signs 12/14/24 09:22 12/14/24 10:13 BP 134/76 110/84 Blood Pressure Location Lt brachial Lt brachial Position Sitting Sitting Respiration 16 16 Pulse 71 66 Pulse Source Pulse Oximeter Pulse Oximeter Pulse Oximetry (%) 99 94 Oxygen Delivery Method Room Air Room Air Intake Visit Reasons: Right C3-C4-C5 RFA/Ativan Public Health Engineer Required: No Allergies tramadol Allergy (Severe, Verified 12/14/24 09:22) Itching PFSH Medical History Insomnia PONV (postoperative nausea and vomiting) GERD (gastroesophageal reflux disease) Oropharyngeal dysphagia Gastritis Migraines Dyslipidemia Hypothyroidism Osteoporosis Anxiety Essential hypertension Surgical History History of shoulder surgery History of section History of nasal surgery History of surgery History of carpal tunnel surgery History of neck surgery Family History Father Cancer of prostate Mother HTN (hypertension) Maternal Grandmother Stroke Asthma Brother Substance use disorder Social History Household Members: Spouse Caregiver staying overnight: No Housing: Apartment Are you a primary child care nurse to a significant other at home: Yes (, he also has a CYCLE TOURING GUIDE) Do you presently have 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 or other home services: No 75 years or older and lives alone: No Alcohol intake: never Patient Tobacco Use Status: Former Tobacco user Tobacco use type: Cigarette e-Cigarette/Vaping Use: Never Used Second Hand Smoke Exposure: No service: No Current occupational status: retired Cognitive needs: No Hearing needs: No Vision needs: No Physical Exam Vital Signs: Last Vital Signs Pulse 71 12/14/24 09:22 Resp 16 12/14/24 09:22 BP 134/76 12/14/24 09:22 Pulse Ox 99 12/14/24 09:22 Oxygen Delivery Method Room Air 12/14/24 09:22 Office Procedures Details: Radiofrequency lesioning cervical medial branch nerves, Right C3, C4 and C5 After obtaining written consent, pre-procedure blood pressure and heart rate were stable and recorded in the nursing record. The patient was placed in the prone position. The?cervical?area was prepped with chloraprep and draped in sterile fashion. The skin over the target for each medial branch nerve was anesthetized with 0.75% lidocaine. An 18 gauge radiofrequency cannula was advanced to each target site under AP and lateral fluoroscopic guidance. No paresthesias were elicited with needle placement and aspiration was negative for heme and CSF. Bleeding was noted through the C3 needle insertion site. The needle was removed and pressure was applied for a few minutes. The needle was then replaced and hemostasis was ensured. Impedances were then verified under 600 ohms. Motor testing (2 Hz) confirmed needle placement at each site within the appropriate voltage thresholds. Each site was injected with 1 ml 2% preservative-free lidocaine. Radiofrequency lesioning was performed for 80 seconds at 80 deg Celcius. The needle was removed, skin cleansed and a sterile bandage was applied. The patient tolerated the procedure well and no complications were encountered. Following the procedure the patient's vital signs were stable. The patient was discharged home in good condition with post-procedural instructions. Time Out: Immediately prior to the procedure, the following was verbally confirmed that there is a signed consent form and that the correct patient, planned procedure, site and side are consistent with documentation and that necessary equipment and/or blood products are available prior to the start of the case. Complications: none EBL: <5 cc 91540 - RFA Cervical Medial Branches 87163 - Cervical Medial Branches ADDNL Procedure code (CPT) selection complete Office Meds lidocaine (PF) 10 mg/mL (1 %) injection solution Performing Provider: Ilir Mtz MD Performing Location: [facility] Documented (not given) by: Ilir Mtz MD on 12/14/24 09:58 Dose Route Admin Location Dispensed Lot Number Expiration Date NDC Collar Stay Fuser Tender 5 mL subcut mL Total Dispensed Waste n/a n/a Assessment & Plan Assessment & Plan (1) Cervical spondylosis: Code(s): M47.812 - Spondylosis without myelopathy or radiculopathy, cervical region Category: Medical Plan Patient is status post right C3, C4, C5 medial branch radiofrequency ablation. Patient tolerated procedure well and was discharged home in stable condition with discharge instructions. All questions were answered. We will follow-up via telephone or in clinic to assess response to therapy. A follow-up appointment was made during today's visit. Orders: Orders FL guidance in treatment room Today Mima Serrato, DOCUMENT REVIEWER, TAKE UP OPERATOR M47.812 - Spondylosis without myelopathy or radiculopathy, cervical region AMB RFA Radiofrequency Ablation Pain Management Today Ilir Mtz MD M47.812 - Spondylosis without myelopathy or radiculopathy, cervical region Medications: New lidocaine (PF) 5 mL subcut ONCE 5 mL 0RF Ilir Mtz MD M47.812 - Spondylosis without myelopathy or radiculopathy, cervical region Discontinued ondansetron Discontinued Reason: Duplicate 4 mg PO Q8H PRN 10 tabs 0RF nausea and vomiting lorazepam (Ativan) Take 30 minutes prior to arrival to procedure Discontinued Reason: Patient no longer taking 1 mg PO ONCE 1 tab 0RF anxiety oxycodone take 30 minutes prior to arrival for procedure Discontinued Reason: Patient Completed Course 10 mg PO ONCE PRN 1 tab 0RF pain Coding Level of Care Code Procedure Only Diagnoses Cervical spondylosis M47.812 CPT Codes Radiofrequency Ablation - Rad-Ablation 1: 82281 - RFA Cervical Medial Branches ([id number]) Radiofrequency Ablation - Rad-Ablation 2: 18717 - Cervical Medial Branches ADDNL ([id number])
[2024-12-14 09:22] VITALS: BP 134/76; PULSE 71; RESP 16; O2SAT 99
[2024-12-14 10:13] VITALS: BP 110/84; PULSE 66; RESP 16; O2SAT 94
== END 2024-12-14 10:13 | disposition home or self-care (01) ==
LOC: HO.PMCPRC 09:14
PROVIDERS: PCP Nurse Practitioner Family; Visit Provider Internal Medicine
DX: M47.812 Spondylosis without myelopathy or radiculopathy, cervical region (principal)
CPT/HCPCS: 64633; 64634

== ENCOUNTER 2024-12-25 09:45 | Outpatient (AMB) | payer OTHER, SELFPAY ==
--- OUTSIDE RECORDS SUMMARY | 2024-01-28 06:15 | XMS_ITS ---
Author Organization [facility] Address [address] [place] [address] Care Team Providers Care Rag Boiler Name Role Phone AUTUMN PADILLA Primary Care Provider [phone] REASON FOR VISIT Courtesy Visit Vital Signs Temperature 97.6 degrees Fahrenheit 01/28/20 24 Respiratory Rate 20 /min 01/28/2024 Height 5'2 in 01/28/2024 Weight 145 lbs 01/28/2024 BMI 26.52 kg/m2 01/28/2024 Oximetry 99 01/28/2024 Blood pressure systolic 120 01/28/20 24 Blood pressure diastolic 81 024 Encounters Encounter Location Date Provider Diagnosis [facility] [address] [place] [address] 01/28/2024 AUTUMN BEASLEY Plan Of Treatment No Information Progress Notes * Marie ENGELDO B:1950 (74 yo F)Acc No.[id number]:01/28/2024 Patient: Lawson janayshira Marie Nagy Provider: Lawson BEASLEY MD :1950 A ge:73 Y S ex:Female Date:01/28/2024 Phone: Address:[address] [place] [phone] Structured Data:Consent to r eceive voicemail/text messages? : YES Subjective: * Chief Complaints: * C ourtesy Visit Objective: * Vitals: I nitials: AM, BP sittin/81, RR:20/min, Oxygen sat %:99, Pulse sittin, Temp:97.6F, Wt:145lbs, Ht-in: 5'2 , BMI:26.52Index, Pain scale:01-10. Plan: * Procedure Codes: 3 074F SYST BP < 130 [id number] DIAST BP 80-89 MM HG Billing Information: * Procedure Codes: 3074F SYST BP < 130 mmHg. 3079F DIAST BP 80-89 MM HG. * Electronic signature of AUTUMN BEASLEY MD on 12/25/2024 at 11:56 AM EDT Sign off status: Pending * Provider: Lawson BEASLEY MD Date: 1 Generated for Tom kenny/Dania/Simiitting on: 0 12/25/2024 11:56 AM EDT
--- OUTSIDE RECORDS SUMMARY | 2024-02-28 05:15 | XMS_ITS ---
Author Organization [facility] Address [address] [place] [address] Care Team Providers Care Fire Management Officer Name Role Phone AUTUMN PAIDLLA Primary Care Provider REASON FOR VISIT new patient, Please request prev medical records Encounters Encounter Location Date Provider Diagnosis [facility] [address] [place] [address] 02/28/2024 AUTUMN BEASLEY Plan Of Treatment No Information Progress Notes * Marie ENGELDO B:1950 (74 yo F)Acc No.[id number]:02/28/2024 Patient: Marie Sterling Provider: Lawson BEASLEY MD :1950 A ge:73 Y S ex:Female Date:02/28/2024 Phone: Address:[address] [place], [place] [phone] Structured Data:Consent to r eceive voicemail/text messages? : YES Subjective: * Chief Complaints: * N ew patientPlease request prev medical records Billing Information: * Procedure Codes: * Electronic signature of AUTUMN BEASLEY MD on 12/25/2024 at 11:55 AM EDT Sign off status: Pending * Provider: Lawson BEASLEY MD Date: 04/29/2023 Generated for Deborahi ng/Faxing/eTransmitting on: 0 12/25/2024 11:55 AM EDT
--- OUTSIDE RECORDS SUMMARY | 2024-02-28 05:15 | XMS_ITS ---
Author Organization [facility] Address [address] [place] [address] Care Team Providers Care Wildland Firefighter Name Role Phone AUTUMN PADILLA Primary Care Provider [phone] REASON FOR VISIT new patient Encounters Encounter Location Date Provider Diagnosis [facility] [address] [place] [address] 02/28/2024 AUTUMN BEASLEY Plan Of Treatment No Information Progress Notes * Marie BRASWELLDO B:1950 (74 yo F)Acc No.[id number]:02/28/2024 Patient: Lawson janayshira Yakov Marie Provider: Lawson BEASLEY MD :1950 A ge:73 Y S ex:Female Date:02/28/2024 Phone: Address:[address] [place], [place] [phone] Structured Data:Consent to r eceive voicemail/text messages? : YES Subjective: * Chief Complaints: * N ew patient * Electronic signature of AUTUMN BEASLEY MD on 12/25/2024 at 11:56 AM EDT Sign off status: Pending * Provider: Lawson BEASLEY MD Date: 1 04/29/2023 Generated for Printi ng/Faxing/eTransmitting on: 0 12/25/2024 11:56 AM EDT
--- OUTSIDE RECORDS SUMMARY | 2024-02-29 06:00 | XMS_ITS ---
Author Organization [facility] Address [address] [place] [address] Care Team Providers Care Sewing Machine Tester Name Role Phone AUTUMN PADILLA Primary Care Provider [phone] REASON FOR VISIT ORAL SURGERY ASSISTANT Encounters Encounter Location Date Provider Diagnosis [facility] [address] [place] [address] 02/29/2024 AUTUMN BEASLEY Plan Of Treatment No Information Progress Notes * Marie ENGELDO B:1950 (74 yo F)Acc No.[id number]:02/29/2024 Patient: Lawson kapoor YakovMarie Provider: Lawson BEASLEY MD :1950 A ge:73 Y S ex:Female Date:02/29/2024 Phone: Address:[address] [place], [place] [phone] Structured Data:Consent to r eceive voicemail/text messages? : YES Subjective: * Chief Complaints: * N P * Electronic signature of AUTUMN BEASLEY MD on 12/25/2024 at 11:57 AM EDT Sign off status: Pending * Provider: Lawson BEASLEY MD Date: 1 04/30/2023 Generated for Printi ng/Faxing/eTransmitting on: 0 12/25/2024 11:57 AM EDT
--- OUTSIDE RECORDS SUMMARY | 2024-06-16 04:30 | XMS_ITS ---
Author Organization [facility] Address [address] [place] [address] Care Team Providers Care Water Tanker Driver Name Role Phone Macario Scott Primary Care Provider REASON FOR VISIT SPIROMETRY Social History Sex Assigned At : Social History Observation Description Sex Assigned At Female Encounters Encounter Location Date Provider Diagnosis [facility] [address] [address] 06/16/2024 Macario Scott Plan Of Treatment No Information Progress Notes * EDUARDO ABREUDOB:[birth year] (74 yo F)Acc No.[id number]:06/16/2024 Progress Note Patient: EDUARDO STORM Provider: Andrzej Scott MD :1950 A ge:73 Y S ex:Female Date:06/16/2024 Address:[address] [place] [address] Subjective: * Chief Complaints: * 1 . SPIROMETRY. * Medical History: Objective: * Vitals: Assessment: Plan: * Treatment: * Images: * Electronic signature of Anoop Scott MD on 12/25/2024 at 11:56 AM EDT Sign off status: Pending * Provider: Andrzej Scott MD Date: 06/16/2024 Generated for Tom kenny/Dania/Simiitting on: 0 12/25/2024 11:56 AM EDT
--- OUTSIDE RECORDS SUMMARY | 2024-06-16 05:15 | XMS_ITS ---
Author Organization [facility] Address [address] [place] [address] Care Team Providers Care Child And Family Services Worker Name Role Phone Macario Scott Primary Care Provider [phone] REASON FOR VISIT F/UP REFILL Social History Sex Assigned At : Social History Observation Description Sex Assigned At Female Encounters Encounter Location Date Provider Diagnosis [facility] [address] [address] 06/16/2024 Macario Scott Plan Of Treatment No Information Progress Notes * EDUARDO ABREUDOB:[birth year] (74 yo F)Acc No.[id number]:06/16/2024 Progress Note Patient: EDUARDO STORM Provider: Andrzej Scott MD :1950 A ge:73 Y S ex:Female Date:06/16/2024 Address:[address] [place] [address] Subjective: * Chief Complaints: * 1 . F/UP REFILL. * Medical History: Objective: * Vitals: Assessment: Plan: * Treatment: * Images: Care Plan Details* * Electronic signature of Anoop Scott MD on 12/25/2024 at 11:56 AM EDT Sign off status: Pending * Provider: Andrzej Scott MD Date: 06/16/2024 Generated for Tom kenny/Dania/eTransmitting on: 12/25/2024 11:56 AM EDT
--- OUTSIDE RECORDS SUMMARY | 2024-09-25 04:45 | XMS_ITS ---
Author Organization [facility] Address [address] [place] [address] Care Team Providers Care Records Analyst Name Role Phone Macario Scott Primary Care Provider REASON FOR VISIT LABS Social History Sex Assigned At : Social History Observation Description Sex Assigned At Female Encounters Encounter Location Date Provider Diagnosis [facility] [address] [address] 09/25/2024 Macario Scott Plan Of Treatment No Information Progress Notes * EDUARDO ABREUDOB:[birth year] (74 yo F)Acc No.[id number]:09/25/2024 Progress Note Patient: EDUARDO STORM Provider: Andrzej Scott MD :1950 A ge:74 Y S ex:Female Date:09/25/2024 Address:[address] [place] [address] Subjective: * Chief Complaints: * 1 . LABS. * Medical History: Objective: * Vitals: Assessment: Plan: * Treatment: * Images: * Electronic signature of Anoop Scott MD on 12/25/2024 at 11:57 AM EDT Sign off status: Pending * Provider: Andrzej Scott MD Date: 09/25/2024 Generated for Tom kenny/Dania/Simiitting on: 0 12/25/2024 11:57 AM EDT
--- OUTSIDE RECORDS SUMMARY | 2024-10-02 04:45 | XMS_ITS ---
Author Organization [facility] Address [address] [place] [address] Care Team Providers Care Sand Drier Name Role Phone Macario Scott Primary Care Provider REASON FOR VISIT Lab Result Social History Sex Assigned At : Social History Observation Description Sex Assigned At Female Encounters Encounter Location Date Provider Diagnosis [facility] [address] [address] 10/02/2024 Macario Scott Plan Of Treatment No Information Progress Notes * EDUARDO ABREUDOB:[birth year] (74 yo F)Acc No.[id number]:10/02/2024 Progress Note Patient: EDUARDO STORM Provider: Andrzej Scott MD :1950 A ge:74 Y S ex:Female Date:10/02/2024 Address:[address] [place] [address] Subjective: * Chief Complaints: * 1 . Lab Result. * Medical History: Objective: * Vitals: Assessment: Plan: * Treatment: * Images: Care Plan Details* * Electronic signature of Anoop Scott MD on 12/25/2024 at 11:57 AM EDT Sign off status: Pending * Provider: Andrzej Scott MD Date: 10/02/2024 Generated for Tom kenny/Dania/eTransmitting on: 12/25/2024 11:57 AM EDT
[2024-12-25 09:47] VITALS: BP 110/70; PULSE 81; RESP 16; O2SAT 99; BMI 26.0
--- NOTE | 2024-12-25 09:47 | MHC.OFFVIS ---
Vital Signs 12/25/24 09:47 Height 5 ft 2 in Weight 142 lb BMI 26.0 BP 110/70 Blood Pressure Location Lt brachial Position Sitting Respiration 16 Pulse 81 Pulse Source Pulse Oximeter Pulse Oximetry (%) 99 Oxygen Delivery Method Room Air Intake Visit Reasons: S/P Right C3-C4-C5 RFA Basket Grader Required: No Allergies tramadol Allergy (Severe, Verified 12/25/24 09:50) Itching Medication List - Last Reconciled 12/25/24 by Sadie Miranda LPN atenolol 50 mg PO DAILY Held on 06/18/23. Instructions: Resume on 06/19/23. Check your blood pressure every morning as soon as you wake up and send it to Dr. Alberto. Do no take the blood pressure medication if the blood pressure is below 120/70. Wait every day to hear back from Dr. Alberto before you take the medication. askrmukrwi-aioccvlhlhpjv-hcbd 50-300-40 mg (Fioricet) 2 caps PO Q8H PRN [chair lift daily use NS] clotrimazole 1% 1 appl topical BID cyclobenzaprine 5 mg PO BEDTIME PRN hospital bed daily miscellaneous medical supply daily use, ECO-Patch Reusable self adhesive electrodes for TENS FES/NMES ondansetron 4 mg PO Q8H PRN pantoprazole 40 mg PO DAILY rizatriptan take 1 tab at onset of headache; if no relief may repeat 1 tab after at least 2 hrs; max = 3 tabs/24 hr PO sucralfate (Carafate) 10 mL PO BID trazodone 150 mg PO BEDTIME HPI HPI S/P Right C3-C4-C5 RFA: Details: History of Present Illness The patient is a 74-year-old female presenting for follow-up after right C3, C4, C5 radiofrequency ablation. She reports persistent pain in the neck region, extending down to the shoulder, described as severe and knife-like in quality. The pain has not improved since the procedure and is associated with significant headaches, which she hoped would resolve post-ablation. The patient has a history of migraine syndrome, which has not been managed effectively in recent years. She has not seen her neurologist for almost four years and is seeking a new referral for better management of her headaches. Additionally, she has cervical spondylosis with a history of anterior cervical discectomy and fusion (ACDF) at the C6-7 level. There is a noted loss of cervical lordosis and structural changes in the cervical spine. Pain Description - Onset and Timing: Persistent since radiofrequency ablation - Quality and Character: Severe, knife-like pain - Primary Location: Neck, extending to shoulder - Exacerbating Factors: None specified - Relieving Factors: None effective Pain Management - Affect: Pain impacting daily activities and mood - Analgesia: Current pain levels remain high despite previous interventions - Adverse Effects: None reported - Activities of Daily Living: Pain interferes with daily functioning - Aberrant Drug Related Behaviors: None reported PFSH Medical History Insomnia PONV (postoperative nausea and vomiting) GERD (gastroesophageal reflux disease) Oropharyngeal dysphagia Gastritis Migraines Dyslipidemia Hypothyroidism Osteoporosis Anxiety Essential hypertension Surgical History History of shoulder surgery History of section History of nasal surgery History of surgery History of carpal tunnel surgery History of neck surgery Family History Father Cancer of prostate Mother HTN (hypertension) Maternal Grandmother Stroke Asthma Brother Substance use disorder Social History Household Members: Spouse Caregiver staying overnight: No Housing: Apartment Are you a primary pediatric critical care nurse to a significant other at home: Yes (, he also has a TELEVISION MAINTENANCE WORKER) Do you presently have 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 or other home services: No 75 years or older and lives alone: No Alcohol intake: never Patient Tobacco Use Status: Former Tobacco user Tobacco use type: Cigarette e-Cigarette/Vaping Use: Never Used Second Hand Smoke Exposure: No service: No Current occupational status: retired Cognitive needs: No Hearing needs: No Vision needs: No Physical Exam Vital Signs: Last Vital Signs Pulse 81 12/25/24 09:47 Resp 16 12/25/24 09:47 BP 110/70 12/25/24 09:47 Pulse Ox 99 12/25/24 09:47 Oxygen Delivery Method Room Air 12/25/24 09:47 BMI result Body Mass Index 26.0 Assessment & Plan Assessment & Plan (1) Radiculopathy, cervical: Code(s): M54.12 - Radiculopathy, cervical region Category: Medical (2) Migraines: Code(s): G43.909 - Migraine, unspecified, not intractable, without status migrainosus Category: Medical Qualifiers: Migraine type: unspecified (3) Cervical spondylosis: Code(s): M47.812 - Spondylosis without myelopathy or radiculopathy, cervical region Category: Medical Plan Plan Patient was informed and verbally consented to the use of an ambient scribe for clinic note documentation during this visit. 1. Cervical Radiculopathy - Plan for cervical interlaminar steroid injection at C6-7 level to manage radicular pain. 2. Migraine Syndrome - Referral to a new neurologist for better management of migraines. 3. Cervical Spondylosis - Monitor response to RFA and manage symptoms accordingly. Discussion Notes I discussed with the patient the need for a cortisone injection to address the persistent pain in her shoulder and neck region. We also talked about referring her to a new neurologist for her migraine management, as her previous treatments were ineffective. The patient consented to these plans and understood the importance of follow-up care. Patient Instructions - Schedule a cortisone injection for shoulder and neck pain. - Follow up with the new neurologist for migraine management. - Monitor any changes in symptoms and report them during follow-up visits. Orders: Referrals Neurology Referral G43.909 - Migraine, unspecified, not intractable, without status migrainosus Coding Level of Care Code Est Pt Level 4 (09715) Diagnoses Radiculopathy, cervical M54.12 Migraines G43.909 Migraine type: unspecified Cervical spondylosis M47.812
--- OUTSIDE RECORDS SUMMARY | 2024-12-25 11:55 | XMS_ITS | Encounter Summary ---
Author Organization [facility] Address [address] [place] [address] Phone Care Team Providers Care Survey Cad Technician Name Role Phone Addi Holland NP Primary Care Provider + Encounter Details Date Type Department Care Team (Late st Contact Info) Description 03/08/2023 Procedure Pass [facility] Endoscopy Admitting Dept Virtual Department [address] [place] [id number] Social History Tobacco Use Types Packs/Day Years [...] on filedocumented in this encounter Care Teams Survey Cad Technician Relationship Specialty Start Date End Date Addi Holland NP [address] [place] [address] PCP - General Nurse Practitioner 02/17/23 documented as of this encounter Additional Source Comments The information contained in this document represents components of the legal health record. It is not the complete legal health record.[facility]
--- OUTSIDE RECORDS SUMMARY | 2024-12-25 11:55 | XMS_ITS | Encounter Summary ---
Author Organization [facility] Address [address] [place] [address] Phone Care Team Providers Care Public Administration Teacher Name Role Phone Addi Holland NP Primary Care Provider + Encounter Details Date Type Department Care Team (Late st Contact Info) Description 11/02/2023 Procedure Pass [facility] Endoscopy Admitting Dept Virtual Department [address] [place] [address] Social History Tobacco Use Types Packs/Day Years [...] on filedocumented in this encounter Care Teams Public Administration Teacher Relationship Specialty Start Date End Date Addi Holland NP [address] [facility] [address] PCP - General Nurse Practitioner 02/17/23 documented as of this encounter Additional Source Comments The information contained in this document represents components of the legal health record. It is not the complete legal health record.[facility]
--- OUTSIDE RECORDS SUMMARY | 2024-12-25 11:56 | XMS_ITS | Patient Health Record ---
Author Organization [employer]. Address [address] [place] [address] Care Team Providers Care Channel Worker Name Role Phone Macario Scott Primary Care Provider Allergies Allergen (clinical drug ingredient) Drug/Non Drug Allergy documented on EMR Reaction Allergy Type Onset Date Status tramadol Tramadol rash Drug Allergy Active Results Component Value Reference Range Notes TSH reflex to T4 Reviewed date:04/26/2024 08:51:11 AM Interpretation: Performing Lab:[facility] [address] [id number], Phone - [phone], Director - MDFarrier Notes/Report: TSH 3.730 0.450-4.500 uIU/mL Microalb/Creat Ratio, Timed Ur-LC Reviewed date:04/26/2024 08:51:11 AM Interpretation: Performing Lab:[facility] [address] [id number], Phone - [phone], Director - MDKostasrier Notes/Report: Ur.Collec. Interval 0 Creatinine, Urine 86.5 Not Estab. mg/dL Albumin, Urine 3.9 Not Estab. ug/mL Alb/Creat Ratio 4.5 0.0-30.0 ug/mg creat Alb, U Excret. Rate 0.0-20.0 ug/min No to bakari volume submitted. Unable to calculate 24 hour result. Albumin,Ur mg/day TNP Unable to calculate result since non-numeric result obtained for component test. CBC With Differential/Platel et-LC-Q Reviewed date:04/26/2024 08:51:11 AM Interpretation: Performing Lab:[facility] [address] [id number], Phone - [phone], Director - Bree Notes/Report: WBC 5.5 3.4-10.8 [...] Immature Grans (Abs) 0.0 0.0-0.1 x10E3/uL Urinalysis, Xgyelysu-NV-V Reviewed date:04/26/2024 08:51:11 AM Interpretation: Performing Lab:[facility] [place], [address] [place] [id number], Phone - [phone], Director - Bree Notes/Report: Specific Bowie 1.016 1.005-1.030 pH 7.0 5.0-7.5 Urine-Color Yellow [...] 14+eGFR-LC-Q Reviewed date:04/26/2024 08:51:11 AM Interpretation: [facility]forming [facility] [address] [place] [id number], Phone - [phone], Director - Bree Notes/Report: Glucose 94 70-99 [...] io-LC Reviewed date:04/26/2024 08:51:11 AM Interpretation: Performing Lab:[facility] [place], [address] [place] [id number], Phone - [phone], Director - Bree Notes/Report: Cholesterol, Total 232 [...] Reviewed date:03/31/2024 08:44:59 AM Interpretation: Performing Lab:[facility] [place] [facility] [place] [place] [id number], Phone - [phone], Director - Bree Notes/Report: TSH 1.770 0.450-4.500 uIU/mL Cardiovascular Risk Assessme nt Reviewed date:04/06/2024 12:00:17 PM Interpretation: Performing Lab:[facility] [place] [address] [place] [id number], Phone - [phone], Director - Bree Notes/Report: Interpretation Note Supplemental report is available. PDF . CBC With Differential/Platel et-LC-Q Reviewed date:03/31/2024 08:45:13 AM Interpretation: Performing Lab:[facility] [place], [place] [id number], Phone - [phone], Director - Bree Notes/Report: WBC 7.0 3.4-10.8 [...] Immature Grans (Abs) 0.0 0.0-0.1 x10E3/uL Urinalysis, Etxfskww-RF-M Reviewed date:03/31/2024 08:45:17 AM Interpretation: Performing Lab:[facility] [place] [facility] [address] [place] [id number], Phone - [phone], Director - Bree Notes/Report: Specific Bowie 1.020 1.005-1.030 pH 7.0 5.0-7.5 Urine-Color Yellow [...] 14+eGFR-LC-Q Reviewed date:03/31/2024 08:45:20 AM Interpretation: Performing Lab:[facility] [place], [address] [place] [id number], Phone - [phone], Director - Bree Notes/Report: Glucose 82 70-99 [...] Panel-Q-LC Reviewed date:03/31/2024 08:45:24 AM Interpretation: Performing Lab:[facility] [address] [id number], Phone - [phone], Director - Bree Notes/Report: Cholesterol, Total 222 100-199 mg/dL Triglycerides 65 0-149 mg/dL HDL Cholesterol 76 >39 mg/dL VLDL Cholesterol Koby 11 5-40 mg/dL LDL Chol Calc (NIH) 135 0-99 mg/dL Occult Blood, Fecal, IA-[facility] Reviewed date:05/04/2024 04:08:08 PM Interpretation: Performing Lab:[facility] [place], [address] [place] [id number], Phone - [phone], Director - Bree Notes/Report: Occult Blood, Fecal, IA Negative Negative Cardiovascular Risk Assessme nt Reviewed date:04/26/2024 08:51:11 AM Interpretation: Performing Lab:[facility] [address] [id number], Phone - [phone], Director - Bree Notes/Report: Interpretation Note Supplemental report is available. PDF . Occult Blood, Fecal, IA[facility] Reviewed date:03/31/2024 08:45:03 AM Interpretation: Performing Lab:[facility] [address] [id number], Phone - [phone], Director - Bree Notes/Report: Occult Blood, Fecal, IA Negative Negative Microalbumin/Creatinine Rati o, Random Urine-LC Reviewed date:03/31/2024 08:45:06 AM Interpretation: Performing Lab:[facility] [address] [id number], Phone - [phone], Director - Bree Notes/Report: Creatinine, Urine 122.7 Not Estab. mg/dL Albumin, Urine 12.5 Not Estab. ug/mL Alb/Creat Ratio 10 0-29 mg/g creat Normal: 0 - 29 Moderately increased: 30 - 300 Severely increased: >300 Reason For Referral Reason If additional kathy ting is needed, please refer back to PCP. Please fax consult notes and/or results of procedure approved to [phone]. Thanks! ~Annual Eye Exam~ Diagnosis 1 Encounter for examin ation of eyes and vision without abnormal findings (Z01.00) Referral Organization [facility] Referring Provider First Name Macario Referring Provider Last Name Tyler Referring Provider Speciality General Pr actice Referred Provider [employer] Referred Provider Specialty Retail Seasonal Specialist Referral Priority Routine Reason Please fax consul t notes and/or results of procedure approved to [phone]. Thanks! CONSULT ONLY - MANAGED CARE ~Annual Eye Exam~ Diagnosis 1 Encounter for examin ation of eyes and vision without abnormal findings (Z01.00) Referral Organization [facility] Referring Provider First Name Macario Referring Provider Last Name Tyler Referring Provider Speciality General Pr actice Referred Provider [employer] Referred Provider Specialty Retail Seasonal Specialist Referral Priority Routine Medications Medication SIG (Take, [...] W/U Status Risk Notes Problem Mixed hyperlipidemia (070265101) Mixed hyperlipidemia (E78.2) Active confirmed Problem Chronic kidney disease due to hypertension (230926569447770) Hypertensive chronic kidney disease with stage 1 through stage 4 chronic kidney disease, or unspecified chronic kidney disease (I12.9) Active confirmed Problem Fibromyalgia (470697016) Fibromyalgia (M79.7) Active confirmed Problem Chronic insomnia (472601667) Chronic insomnia (F51.04) Active confirmed Problem Vertigo (249964087) Vertigo (R42) Active confirmed Problem Acquired hypothyroidism (241523122) Acquired hypothyroidism (E03.9) Active confirmed Problem Migraine (68653851) Migraine syndrome (G43.909) Active confirmed Problem Chronic kidney disease stage 2 (152210507) CKD (chronic kidney disease), stage II (N18.2) Active confirmed GFR 75 as per lab results from Problem Former smoker (8959714) Former smoker (Z87.891) Active confirmed Problem Moderate recurrent major depression (13791769) 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) Active confirmed Problem Uncomplicated severe persistent asthma (627414854) Severe persistent asthma without complication (J45.50) Active [...] Encounter Location Date Provider Diagnosis [facility] [address] [address] 03/24/2024 Macario Scott [facility] [address] [facility] [address] [place] [address] 03/24/2024 Macario Tyler [facility] [address] [facility] [address] [place] [address] 03/31/2024 Macario Tyler [facility] [address] [facility] [address] [place] [address] 03/24/2024 Macario Tyler Essential (primary) hypertension I10 ; Migraine syndrome [...] eyes and vision without abnormal findings Z01.00 [facility] [address] [address] [place] [address] 03/31/2024 Macario Tyler Hypertensive chronic kidney disease with stage 1 [...] to 25.9 in adult Z68.25 [facility] [address] [facility] [address] [place] [address] 04/24/2024 Macario Tyler Acquired hypothyroid ism E03.9 ; Encounter for general adult medical examination without abnormal findings Z00.00 ; Essential (primary) hypertension I10 and Mixed hyperlipidemia E78.2 [facility] [address] [facility] [address] [place] [address] 05/02/2024 Macario Scott Severe persistent asthma without [...] as per lab results from 03/25/2024 04/24/2024 Encounter for general adult medical examination without abnormal findings (ICD-10 - Z00.00) 04/24/2024 Acquired hypothyroidism (ICD-10 - E03.9) 05/02/2024 Moderate recurrent major depression (ICD-10 - [...] is recommended. Will continue to monitor. 04/24/2024 Essential (primary) hypertension (ICD-10 - I10) 03/24/2024 Mixed hyperlipidemia (ICD-10 - E78.2) 03/24/2024 Severe persistent asthma without complication (ICD-10 - J45.50) 03/31/2024 Severe persistent asthma without complication (ICD-10 - J45.50) 04/24/2024 Mixed hyperlipidemia (ICD-10 - E78.2) 05/02/2024 CKD (chronic kidney disease), stage II [...] Comprehensive Metabolic Panel 14+eGFR-LC -Q 05/02/2024 Urinalysis, Ssgwkcse-IE-P 05/02/2024 CBC With Differential/Kpeqxgxd-XZ-O 04/13 Mammo SCREENING MAMMO DIGITAL, SOHEILA 05/02 Mammo SCREENING MAMMO DIGITAL, SOHEILA 03/24 CHEST X-RAY (PA/LATERAL) 05/02/2024 CHEST X-RAY (PA/LATERAL) 03/24/2024 Future Test Test Name Order Date Lipid Panel With LDL/HDL Ratio-LC 2024 Comprehensive Metabolic Panel 14+eGFR-LC -Q 09/25/2024 Urinalysis, Xvenfzbh-EU-D 09/25/2024 CBC With Differential/Iconomqp-IB-W 09/10 Insurance Providers Payer Name Payer Address Payer Phone Subscriber Number Group Number Insured Name Patient Relationship to Insured Coverage Start Date Coverage End Date [facility] [employer] [address] [address] [place] [phone] [id number] [place] Self - patient is the insured Medical (General) History Medical History History ICD Code hyperension asthma sinusitis migraines thyroid Surgical History Surgery Date(Month/Year) hystrectomy total 1996 right leg n/a nose n/a carpal tunel on both hands n/a
--- OUTSIDE RECORDS SUMMARY | 2024-12-25 11:56 | XMS_ITS | Encounter Summary ---
Author Organization [facility] Address [address] [place] [address] Phone Care Team Providers Care Objective C Developer Name Role Phone Addi Holland NP Primary Care Provider + Encounter Details Date Type Department Care Team (Late st Contact Info) Description 03/01/2023 Procedure Pass [facility] Admitting Dept Virtual Department [address] [place] [address] Social History Tobacco Use Types Packs/Day Years [...] on filedocumented in this encounter Care Teams Objective C Developer Relationship Specialty Start Date End Date Addi Holland NP [address] [place] [address] PCP - General Nurse Practitioner 02/17/23 documented as of this encounter Additional Source Comments The information contained in this document represents components of the legal health record. It is not the complete legal health record.[facility]
--- OUTSIDE RECORDS SUMMARY | 2024-12-25 11:56 | XMS_ITS | Clinical Summary ---
Author Organization [facility] Address [address] [place] [address] Phone Care Team Providers Care Test Examiner Name Role Phone Addi Holland NP Primary Care Provider [phone] Allergies Active Allergy Reactions Criticality Noted Date [...] - 10/02/2024 11:59 PM EDT Hospital Encounter [facility] Neurodiagnostic [address] [place] [address] Myopathy Discharge Disposition: Home or Self Care 09/26/2024 11:04 AM EDT - 09/29/2024 4:43 PM EDT Hospital Encounter [facility] Urology Unit [address] [place] [address] Maricarmen Hatfield DO [place], Gary [...] TUNNEL REL UPPER GASTROINTESTINAL ENDOSCOPY 08/18/2016 PROCEDURE: SD UPPER GI ENDOSCOPY PERFORMED; COMMENT: Erosive gastritis, [...] care for your loved ones. For example, childhood teacher or elderly care for an older [...] result were not included. [facility] [address] [place] [address] Electromyograph Report Date of service: 10/02/24 Patient [...] note were not included. [facility] [address] [place] [address] Electromyograph Report Date of service: 10/02/24 Patient [...] 2. No active pulmonary process. Telerad YOUNG ([id number]) -------- FINAL REPORT -------- Dictated By: Jhoana Chase Dictated Date: 10/01/2024 10:10 ET Assigned Physician: Jhoana Chase Reviewed and Electronically Signed By: Jhoana Chase Signed Date: 10/01/2024 10:12 ET Workstation ID: [id number] Transcribed By: Self Edit Transcribed Date: 10/01/2024 [...] 2. No active pulmonary process. Teleenio VIDAL ([id number]) -------- FINAL REPORT -------- Dictated By: Jhoana Chase Dictated Date: 10/01/2024 10:10 ET Assigned Physician: Jhoana Chase Reviewed and Electronically Signed By: Jhoana Chase Signed Date: 10/01/2024 10:12 ET Workstation ID: [id number] Transcribed By: Self Edit Transcribed Date: 10/01/2024 10:10 ET Katelyn VIDAL IMG XR PROCEDURES Final R esult * Lavender tube (09/29/2024 5:58 AM EDT) Only the most recent of2 resultswithin the time period is included. [facility] Extra Tube Hold for add-ons. 10/02/2024 9:[address] [facility] Comment:Auto resulted. Blood Venous blood specimen / Unknown Venipuncture / Unknown 09/29/2024 5:58 AM EDT 09/29/2024 6:17 AM EDT Yuval Lake MD LAB BLOOD ORDERABLES F inal Result [facility] [address] [place] [address], [place] [phone] * Magnesium (09/29/2024 5:58 AM EDT) Only the most recent of2 resultswithin the time period is included. [facility] Magnesium 2.1 1.9 - 2.6 mg/dL LAB CHEMISTRY METHOD 09/29/2024 7:[address] [facility] Blood Venous blood specimen / Unknown Venipuncture / Unknown 09/29/2024 5:58 AM EDT 09/29/2024 6:12 AM EDT [facility] LAB BLOOD ORDERABLES Hoa l Result Performing Organization Address City/[facility]/ZIP Co de Phone Number [facility] [address] [place] [address], [place] [phone] * (ABNORMAL) Creatine kinase (09/29/2024 5:58 AM EDT) Only the most recent of3 resultswithin the time period is included. Pathologist [facility] Total CK 1,852(H) 22 - 269 unit/L LAB CHEMISTRY METHOD 09/29/2024 7:[address] [facility] Blood Venous blood specimen / Unknown Venipuncture / Unknown 09/29/2024 5:58 AM EDT 09/29/2024 6:12 AM EDT [facility] LAB BLOOD ORDERABLES Hoa l Result Performing Organization Address [facility] Co de Phone Number [facility] [address] [place] [address], [place] [phone] * (ABNORMAL) Basic metabolic panel (09/29/2024 5:58 AM EDT) Only the most recent of3 resultswithin the time period is included. Sodium 137 133 - 145 mmol/L LAB CHEMISTRY METHOD 09/29/2024 7:[address] [facility] Potassium 4.3 3.5 - 5.5 mmol/L LAB CHEMISTRY METHOD 09/29/2024 7:[address] [facility] Chloride 100 96 - 110 mmol/L LAB CHEMISTRY METHOD 09/29/2024 7:05 AM [facility] CO2 33(H) 21 - 32 mmol/L LAB CHEMISTRY METHOD 09/29/2024 7:05 AM [facility] Anion Gap 4 3 - 11 LAB CHEMISTRY METHOD 09/29/2024 7:05 AM [facility] Glucose 101(H) 70 - 100 mg/dL LAB CHEMISTRY METHOD 09/29/2024 7:05 AM [facility] BUN 17 5 - 25 mg/dL LAB CHEMISTRY METHOD 09/29/2024 7:05 AM [facility] Creatinine 0.76 0.50 - 1.10 mg/dL LAB CHEMISTRY METHOD 09/29/2024 7:05 AM [facility] eGFR 83 >=60 mL/min/1. 73m2 LAB CHEMISTRY METHOD 09/29/2024 7:05 AM [facility] Comment:Calculation based on the Chronic Kidney Disease Epidemiology Collaboration (CKD-EPI) equation refit without adjustment for race. BUN/Creatinine Ratio 22.4 LAB CHEMISTRY METHOD 09/29/2024 7:05 AM [facility] Calcium 9.2 8.5 - 10.5 mg/dL LAB CHEMISTRY METHOD 09/29/2024 7:05 AM [facility] Blood Venous blood specimen / Unknown Venipuncture / Unknown 09/29/2024 5:58 AM EDT 09/29/2024 6:12 AM EDT us Katelyn VIDAL LAB BLOOD ORDERABLES Hoa l Result [facility] [address] [place] [address], * XR Hip 1 View Left (09/28/2024 [...] Signed Date: 09/28/2024 12:51 ET Workstation ID: [id number] Transcribed By: Self Edit Transcribed Date: 09/28/2024 [...] Signed Date: 09/28/2024 12:51 ET Workstation ID: [id number] Transcribed By: Self Edit Transcribed Date: 09/28/2024 12:48 ET Katelyn VIDAL IMG XR PROCEDURES Final R esult * Phosphorus (09/28/2024 6:01 AM EDT) [facility] Phosphorus 3.1 2.5 - 4.5 mg/dL LAB CHEMISTRY METHOD 09/28/2024 7:56 AM EDT [facility] Blood Venous blood specimen / Unknown Venipuncture / Unknown 09/28/2024 6:01 AM EDT 09/28/2024 6:24 AM EDT Katelyn VIDAL LAB BLOOD ORDERABLES Hoa chavez Result [facility] [address] [place] [address], * (ABNORMAL) Comprehensive metabolic panel (09/28/2024 6:01 AM EDT) Sodium 135 133 - 145 mmol/L LAB CHEMISTRY METHOD 09/28/2024 7:56 AM [facility] Potassium 3.6 3.5 - 5.5 mmol/L LAB CHEMISTRY METHOD 09/28/2024 7:56 AM [facility] Chloride 97 96 - 110 mmol/L LAB CHEMISTRY METHOD 09/28/2024 7:56 AM [facility] CO2 32 21 - 32 mmol/L LAB CHEMISTRY METHOD 09/28/2024 7:56 AM [facility] Anion Gap 6 3 - 11 LAB CHEMISTRY METHOD 09/28/2024 7:56 AM [facility] Glucose 98 70 - 100 mg/dL LAB CHEMISTRY METHOD 09/28/2024 7:56 AM [facility] BUN 17 5 - 25 mg/dL LAB CHEMISTRY METHOD 09/28/2024 7:56 AM [facility] Creatinine 0.69 0.50 - 1.10 mg/dL LAB CHEMISTRY METHOD 09/28/2024 7:56 AM [facility] eGFR 92 >=60 mL/min/1. 73m2 LAB CHEMISTRY METHOD 09/28/2024 7:56 AM [facility] Comment:Calculation based on the Chronic Kidney Disease Epidemiology Collaboration (CKD-EPI) equation refit without adjustment for race. BUN/Creatinine Ratio 24.6 LAB CHEMISTRY METHOD 09/28/2024 7:56 AM [facility] Calcium 9.4 8.5 - 10.5 mg/dL LAB CHEMISTRY METHOD 09/28/2024 7:[address] [facility] AST (SGOT) 77(H) 10 - 42 unit/L LAB CHEMISTRY METHOD 09/28/2024 7:[address] [facility] ALT (SGPT) 30 10 - 60 unit/L LAB CHEMISTRY METHOD 09/28/2024 7:56 AM [facility] Alkaline Phosphatase 69 42 - 121 unit/L LAB CHEMISTRY METHOD 09/28/2024 7:[address] [facility] Total Protein 6.0 6.0 - 8.0 g/dL LAB CHEMISTRY METHOD 09/28/2024 7:56 AM [facility] Albumin 3.4 3.2 - 5.0 g/dL LAB CHEMISTRY METHOD 09/28/2024 7:56 AM [facility] Total Bilirubin 0.5 0.0 - 1.4 mg/dL LAB CHEMISTRY METHOD 09/28/2024 7:56 AM [facility] Blood Venous blood specimen / Unknown Venipuncture / Unknown 09/28/2024 6:01 AM EDT 09/28/2024 6:24 AM EDT Katelyn VIDAL LAB BLOOD ORDERABLES Hoa l Result [facility] [address] [place] [address], * (ABNORMAL) Drug abuse screen 8a panel, [...] 7:[address] [facility] Urine [...] VIDAL LAB URINE ORDERABLES Hoa chavez Result [facility] [address] [place] [address], * (ABNORMAL) Aldolase (09/27/2024 1:41 PM EDT) Aldolase 20.6(H) 1.2 - 7.6 U/L 10/03/2024 9:54 AM EDT [facility] Comment: Test performed at [facility], [address], [place] [address] Alisha Jesus MD, PhD - Chest Painting And Sealing Supervisor Blood Venous blood specimen / Unknown Venipuncture / Unknown 09/27/2024 1:41 PM EDT 09/27/2024 2:09 PM EDT us Katelyn Potts PA LAB BLOOD ORDERABLES Hoa l Result [facility] [address] [place] [address] * (ABNORMAL) TRANSTHORACIC ECHOCARDIOGRAM (TTE) COMPLETE (09/27/2024 1:21 PM EDT) Left Atrium Minor [place] 5.3 cm CV PACS Left Atrium Major [place] 5.3 cm CV PACS LA Area Sys [...] Volume 64 mL CV PACS MV Deceleration Coamo 4.0 m/s2 CV PACS E Wave Deceleration [...] CHEMISTRY METHOD 09/27/2024 11:02 AM EDT [facility] Blood Venous blood specimen / [...] chavez Result [facility] [address] [place] [address], [place] [phone] * (ABNORMAL) Lipid panel with reflex to direct LDL (09/27/2024 10:20 AM EDT) Only the most recent of2 resultswithin the time period is included. Cholesterol 234(H) 0 - 200 mg/dL LAB CHEMISTRY METHOD 09/27/2024 12:[address] [facility] Triglycerides 71 0 - 150 mg/dL LAB CHEMISTRY METHOD 09/27[facility]2024 12:[facility] HDL 79 >=40 mg/dL LAB CHEMISTRY METHOD 09/27/2024 12:46 PM [facility] LDL Calculated 141(H) 0 - 100 mg/dL LAB CHEMISTRY METHOD 09/27/2024 12:46 [facility] VLDL Cholesterol Koby 14.2 mg/dL LAB CHEMISTRY METHOD 09/27/2024 12:46 PM [facility] Non HDL Chol. (LDL+VLDL) 155(H) <145 mg/dL LAB CHEMISTRY METHOD 09/27/2024 12:46 PM [facility] Chol/HDL Ratio 3.0 0.0 - 4.4 LAB CHEMISTRY METHOD 09/27/2024 12:46 PM [facility] Blood Venous blood specimen / Unknown Venipuncture / Unknown 09/27/2024 10:20 AM EDT 09/27/2024 10:25 AM EDT Katelyn MeaghandarshanKieran AR LAB BLOOD ORDERABLES Hoa l Result [facility] [address] [place] [address], [place] [phone] * Sedimentation rate (09/27/2024 10:20 AM EDT) Sed Rate 23 0 - 30 mm/hr LAB HEMETOLOGY METHOD 09/27/2024 10:[address] [facility] Blood Venous blood specimen / Unknown Venipuncture / Unknown 09/27/2024 10:20 AM EDT 09/27/2024 10:25 AM EDT Simbagloria Katlyn AR LAB BLOOD ORDERABLES Hoa l Result Performing Organization Address [facility]/ZIP Co de Phone Number [facility] [address] [place] [address], * C reactive protein, high sensitivity (09/27/2024 [...] MD LAB BLOOD ORDERABLES Final Resul t [facility] [address] [place] [address], * (ABNORMAL) Lipase (09/27/2024 10:20 AM EDT) Pathologist [facility] Lipase 12(L) 13 - 75 unit/L LAB CHEMISTRY METHOD 09/27/2024 10:[address] [facility] Blood Venous blood specimen / Unknown Venipuncture / Unknown 09/27/2024 10:20 AM EDT 09/27/2024 10:25 AM EDT Katelyn VIDAL LAB BLOOD ORDERABLES Hoa l Result Performing Organization Address City/[facility]/ZIP Co de Phone Number [facility] [address] [place] [address], * (ABNORMAL) Hepatic function panel (09/27/2024 10:20 [...] Address City/[facility]/ZIP Co de Phone Number [facility] [address] [place] [address], [place] [phone] * ECG 12 lead (09/27/2024 10:00 AM EDT) Only the most recent of2 resultswithin the time period is included. Ventricular Rate ECG 66 BPM GEMUSE Atrial Rate 66 BPM GEMUSE P-R Interval 146 ms GEMUSE QRS Duration 86 ms GEMUSE Q-T Interval 392 ms GEMUSE QTc 410 ms GEMUSE P Wave Goodwater 47 degrees GEMUSE R [place] -6 degrees GEMUSE T [place] 19 degrees GEMUSE ECG Interpretation Normal sinus [...] inal Result Performing Organization Address [facility]/ZIP Co de Phone Number [facility] [address] [place] [address], [place] [phone] * JAIME IFA with titer and pattern (09/27/2024 8:11 AM EDT) [facility] JAIME Negative Negative 09/27/2024 2:[address] [facility] Blood Venous blood specimen / Unknown 09/27/2024 8:11 AM EDT 09/27/2024 8:17 AM EDT Katelyn VIDAL LAB BLOOD ORDERABLES Hoa l Result Performing Organization Address [facility] Co de Phone Number [facility] [address] [place] [address], [place] [phone] * (ABNORMAL) B-type natriuretic peptide (09/27/2024 8:11 AM EDT) [facility] BNP 120(H) <=100 pcg/mL LAB CHEMISTRY METHOD 09/27/2024 8:[address] [facility] Blood Venous blood specimen / Unknown Venipuncture / Unknown 09/27/2024 8:11 AM EDT 09/27/2024 8:16 AM EDT Katelyn VIDAL LAB BLOOD ORDERABLES Hoa l Result Performing Organization Address City/[facility]/ZIP Co de Phone Number [facility] [address] [place] [address], [place] [phone] * (ABNORMAL) Creatine kinase and CKMB (09/27/2024 8:11 AM EDT) [facility] Total CK 3,151(H) 22 - 269 unit/L [...] EDT 09/27/2024 8:17 AM EDT Katelyn Potts AR LAB BLOOD ORDERABLES Hoa chavez Result [facility] [address] [place] [address], [place] [phone] * (ABNORMAL) Complete blood count (09/27/2024 6:19 AM EDT) [facility] WBC 7.8 4.8 - 10.8 K/mcL LAB [...] Res ult [facility] [address] [place] [address], * (ABNORMAL) Urinalysis with reflex microscopic and culture (09/26/2024 9:44 PM EDT) Specific [place] Urine 1.019 1.003 - 1.030 LAB URINALYSIS - AUTOMATED METHOD 09/26/2024 9:57 PM [facility] pH, Urine 5.5 5.0 - 8.0 pH LAB URINALYSIS - AUTOMATED METHOD 09/26/2024 9:57 PM [facility] Leukocytes, Urine Small(A) Negative LAB URINALYSIS - AUTOMATED METHOD 09/26/2024 9:57 PM [facility] Nitrite, Urine Negative Negative LAB URINALYSIS - AUTOMATED METHOD 09/26/2024 9:57 PM [facility] Protein, Urine Negative <=Trace mg/dL LAB URINALYSIS - AUTOMATED METHOD 09/26/2024 9:57 PM [facility] Glucose, Urine Negative Negative mg/dL LAB URINALYSIS - AUTOMATED METHOD 09/26/2024 9:57 PM [facility] Ketones, Urine Trace(A) Negative mg/dL LAB URINALYSIS - AUTOMATED METHOD 09/26/2024 9:57 PM [facility] Urobilinogen, Urine 0.2 0.2 - 1.0 mg/dL LAB URINALYSIS - AUTOMATED METHOD 09/26/2024 9:57 PM [facility] Bilirubin, Urine Negative Negative LAB URINALYSIS - AUTOMATED METHOD 09/26/2024 9:57 PM [facility] Blood, Urine Negative Negative LAB URINALYSIS - AUTOMATED METHOD 09/26/2024 9:57 PM [facility] RBC, Urine 2.4 0 - 4 /HPF LAB URINALYSIS - AUTOMATED METHOD 09/26/2024 9:57 PM [facility] WBC, Urine 3.0 0 - 4 /HPF LAB URINALYSIS - AUTOMATED METHOD 09/26/2024 9:57 PM [facility] Squamous Epithelial, Urine 11 0 [...] Resul t Performing Organization Address [facility]/ZIP Co de Phone Number [facility] [address] [place] [address], [place] [phone] * Arcos urine culture tube (09/26/2024 9:44 PM EDT) Extra Tube Hold for add-ons. 09/26/2024 11:[address] [facility] Comment:Auto resulted. Urine Urine specimen obtained by clean catch procedure / Unknown Non-blood Collection / Unknown 09/26/2024 9:44 PM EDT 09/26/2024 9:49 PM EDT Melissa VIDAL LAB URINE ORDERABLES Final Resul t [facility] [address] [place] [address], [place] [phone] * Culture urine (09/26/2024 9:44 PM EDT) [...] - GENERAL ORDER RAFIQ Final Result [facility] ([facility]) [facility] [address] [place] [address], * MR Brain wo Contrast (09/26/2024 6:19 [...] 12:[address] [facility] RBC 4.00 3.80 - 4.80 M/mcL LAB HEMETOLOGY METHOD 09/26/2024 12:[facility] Hemoglobin 11.0(L) 11.5 - 16.0 g/dL LAB HEMETOLOGY METHOD 09/26/2024 12:27 PM [facility] Hematocrit 36.4 35.0 - 47.0 % LAB HEMETOLOGY METHOD 09/26/2024 12:27 PM [facility] MCV 90.1 79.0 - 98.0 FL LAB HEMETOLOGY METHOD 09/26/2024 12:27 PM [facility] MCH 27.2 27.0 - 32.0 pcg LAB HEMETOLOGY METHOD 09/26/2024 12:27 PM [facility] MCHC 30.2(L) 32.0 - 37.0 g/dL LAB HEMETOLOGY METHOD 09/26/2024 12:27 PM [facility] RDW 13.6 11.0 - 15.0 % LAB HEMETOLOGY METHOD 09/26/2024 12:27 PM [facility] Platelets 218 130 - 400 K/mcL LAB HEMETOLOGY METHOD 09/26/2024 12:27 PM [facility] MPV 9.4 7.0 - 11.0 FL LAB HEMETOLOGY METHOD 09/26/2024 12:27 PM [facility] NRBC 0.0 <1.0 % LAB HEMETOLOGY METHOD 09/26/2024 12:27 PM [facility] NRBC Absolute 0.00 <0.10 K/mcL LAB HEMETOLOGY METHOD 09/26/2024 12:27 PM [facility] Neutrophils Relative 86.7 % LAB HEMETOLOGY METHOD 09/26/2024 12:27 PM [facility] Lymphocytes Relative 6.4 % LAB HEMETOLOGY METHOD 09/26/2024 12:27 PM [facility] Monocytes Relative 6.1 % LAB HEMETOLOGY METHOD 09/26/2024 12:27 PM [facility] Eosinophils Relative 0.1 % LAB HEMETOLOGY METHOD 09/26/2024 12:27 PM [facility] Basophils Relative 0.1 % LAB HEMETOLOGY METHOD 09/26/2024 12:27 PM [facility] Immature Granulocytes Relative 0.6 % LAB HEMETOLOGY METHOD 09/26/2024 12:27 PM [facility] Neutrophils Absolute 7.44(H) 1.50 - 7.00 K/mcL LAB HEMETOLOGY METHOD 09/26/2024 12:27 PM [facility] Lymphocytes Absolute 0.55(L) 1.00 - 5.00 K/mcL LAB HEMETOLOGY METHOD 09/26/2024 12:27 PM [facility] Monocytes Absolute 0.52 0.20 - 1.00 K/mcL LAB HEMETOLOGY METHOD 09/26/2024 12:27 PM [facility] Eosinophils Absolute 0.01 0.00 - 0.50 K/mcL LAB HEMETOLOGY METHOD 09/26/2024 12:[address] [facility] Basophils Absolute 0.01 0.00 - 0.20 K/[facility] LAB HEMETOLOGY METHOD 09/26/2024 12:[address] [facility] Immature Granulocytes Absolute 0.05(H) 0.00 - 0.03 K/[facility] LAB HEMETOLOGY METHOD 09/26/2024 12:[address] [facility] Blood Venous blood specimen / Unknown Venipuncture / Unknown 09/26/2024 12:08 PM EDT 09/26/2024 12:16 PM EDT Maricarmen Hatfield DO LAB BLOOD ORDERABLES Final Result Performing Organization Address [facility]/ZIP Co de Phone Number [facility] [address] [place] [address], [place] [phone] * Activated partial thromboplastin time (09/26/2024 12:08 PM EDT) aPTT 29.7 24.1 - 39.3 sec LAB COAGULATION METHOD 09/26/2024 12:[address] [facility] Blood Venous blood specimen / Unknown Venipuncture / Unknown 09/26/2024 12:08 PM EDT 09/26/2024 12:16 PM EDT Maricarmen Hatfield DO LAB BLOOD ORDERABLES Final Result Performing Organization Address City/[facility]/ZIP Co de Phone Number [facility] [address] [place] [address], [place] [phone] * Prothrombin time with INR (09/26/2024 12:08 [...] Final Result Performing Organization Address [facility] Co de Phone Number [facility] [address] [place] [address], [place] [phone] * Thyroid stimulating hormone (09/26/2024 12:08 PM EDT) TSH 1.29 0.40 - 4.00 mcIU/mL LAB CHEMISTRY METHOD 09/26/2024 6:[address] [facility] Blood Venous blood specimen / Unknown Venipuncture / Unknown 09/26/2024 12:08 PM EDT 09/26/2024 12:16 PM EDT us Melissa VIDAL LAB BLOOD ORDERABLES Final Resul t Performing Organization Address [facility] de Phone Number [facility] [address] [place] [address], [place] [phone] * Thyroxine free (09/26/2024 12:08 PM EDT) Free T4 1.14 0.70 - 1.80 ng/dL LAB CHEMISTRY METHOD 09/26/2024 6:[address] [facility] Blood Venous blood specimen / Unknown Venipuncture / Unknown 09/26/2024 12:08 PM EDT 09/26/2024 12:16 PM EDT us Melissa VIDAL LAB BLOOD ORDERABLES Final Resul t Performing Organization Address City/[facility]/ZIP Co de Phone Number [facility] [address] [place] [address], [place] [phone] * (ABNORMAL) POCT Glucose, blood (09/26/2024 11:46 AM EDT) Glucose POCT 126(H) 70 - 100 mg/dL 09/26/2024 11:47 AM EDT [facility] Blood Capillary blood specimen / Unknown 09/26/2024 11:46 AM EDT 09/26/2024 11:48 AM EDT us Maricarmen Hatfield DO LAB POINT OF CARE T EST DOCKED DEVICE UNSOLICITED RESULTS Final Result [facility] [address] [place] [address], [place] [phone] * CT Angio Head/Neck Stroke wo and/or w Contrast (09/26/2024 11:24 AM EDT) Anatomical Region Laterality Modality Head and Neck Computed Tomogra phy 09/26/2024 11:5 7 AM EDT Impressions 09/26/2024 12:06 PM EDT 1. No large vessel occlusion, intracranial aneurysm, dissection, or hemodynamically significant cervical carotid stenosis. 2. 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 Telerad PA ([id number]) -------- FINAL REPORT -------- Dictated By: Jhoana Chase Dictated Date: 09/26/2024 11:57 ET Assigned Physician: Jhoana Chase Reviewed and Electronically Signed By: Jhoana Chase Signed Date: 09/26/2024 12:06 ET Workstation ID: [id number] Transcribed By: Self Edit Transcribed Date: 09/26/2024 [...] was also performed. DLP: 2522.84 mGy/cm GE Storybytepeed VCT Iterative reconstruction technique FINDINGS: CTA: INTRACRANIAL VASCULATURE: The bilateral A1 and M1 segments are widely patent. The more distal branches of the anterior and middle cerebral arteries also appear patent. The basilar artery is widely patent and terminates in the bilateral collections technician. The right CONVOLUTE TUBE WINDER is partially supplied by the right internal [...] was also performed. DLP: 2522.84 mGy/cm GE Storybytepeed VCT Iterative reconstruction technique FINDINGS: CTA: INTRACRANIAL VASCULATURE: The bilateral A1 and M1 segments are widelypatent. The more distal branches of the anterior and middle cerebralarteries also appear patent. The basilar artery is widely patent andterminates in the bilateral collections technician. The right CONVOLUTE TUBE WINDER is partially supplied bythe right internal carotid [...] measuring 3.4 cm in diameter. Telerad PA ([id number]) -------- FINAL REPORT -------- Dictated By: Jhoana Chase Dictated Date: 09/26/2024 11:57 ET Assigned Physician: Jhoana Chase Reviewed and Electronically Signed By: Jhoana Chase Signed Date: 09/26/2024 12:06 ET Workstation ID: [id number] Transcribed By: Self Edit Transcribed Date: 09/26/2024 [...] of interpretation on 09/26/24 by secure message (Hundo). Telerad YOUNG ([id number]) A Critical Document Only message has been documented for the office of MARICARMEN HATFIELD in the [facility] system on 09/26/2024 11:45 AM, Message ID [id number]. -------- FINAL REPORT -------- Dictated By: Jhoana Chase Dictated Date: 09/26/2024 11:41 ET Assigned Physician: Jhoana Chase Reviewed and Electronically Signed By: Jhoana Chase Signed Date: 09/26/2024 11:45 ET Workstation ID: [id number] Transcribed By: Self Edit Transcribed Date: 09/26/2024 11:41 ET Narrative 09/26/2024 11:45 AM EDT History: Stroke. Severe headache. Nausea. Altered mental status. Comparison: 09/16/16 Technique: Contiguous axial images were obtained at 2.5 mm intervals through the posterior fossa and at 5 mm intervals through the remainder of the brain without intravenous contrast. DLP: 808.85 mGy/cm GE [employer]isMediapeed VCT Iterative reconstruction technique Findings: The ventricular [...] without intravenous contrast. DLP: 808.85 mGy/cm GE [employer]isMediapeed VCT Iterative reconstruction technique Findings: The ventricular [...] time ofinterpretation on 09/26/24 by secure message (Hundo). Telerad YOUNG ([id number]) A Critical Document Only message has been documented for the office ofMARICARMEN HATFIELD in the [facility] system on09/26/2024 11:45 AM, Message ID [id number]. -------- FINAL REPORT -------- Dictated By: Jhoana Chase Dictated Date: 09/26/2024 11:41 ET Assigned Physician: Jhoana Chase Reviewed and Electronically Signed By: Jhoana Chase Signed Date: 09/26/2024 11:45 ET Workstation ID: [id number] Transcribed By: Self Edit Transcribed Date: 09/26/2024 [...] AM EDT Narrative 06/22/2017 1:56 PM EDT [facility] Diagnostic Imaging Department [address] [place] [address] Patient: EDUARDO ENGEL D.O.B./Age/Sex: 1950 - 66 - F Unit#: [id number] Location/Status: SPDIMAM/REG CLI [facility]em[facility] Ordering Physician: LITA TORRES MD [facility] Dexa Axial Skeleton - 06/22/17 - 30 [facility] Dexa Axial Skeleton INDICATION: POST [...] placing the patient at risk for fracture. [id number] A report detailing these results has been enclosed. Dictating Physician: BEN GASTON MD Electronically Signed by: BEN GASTON MD Dic Date/Time: 06/22/171353 Sign date/Time: 06/22/17 135 Procedure Note Ben Gaston MD - 03/31/2022 [facility] Diagnostic Imaging Department [address] [place] [address] Patient: EDUARDO ENGEL D.O.B./Age/Sex: 1950 - 66 -F Unit#: [id number] Location/Status: SPDIMAM/REG CLI Mnemonic[facility] Ordering Physician: LITA TORRES MD [facility] Dexa Axial Skeleton - 06/22/17 - 729 [facility] Dexa Axial Skeleton INDICATION: POST MENOPAUSE Technique: Bone densitometry was performed utilizing dual energy x-ray absorptiometry (DEXA). The lumbar spine is evaluated in the AP projectionfrom L1 through L4. The proximal femora are evaluated in the AP projection bilaterally. There [facility] Findings: AP spine: Bone mineral density: 0.983 gm/cm2 T-score: -1.5 Femoral total (mean, bilateral): Bone mineral density: 0.704 gm/cm2 T-score: -2.4 Left femoral neck: Bone mineral density: 0.618 gm/cm2 T-score: -3.0 IMPRESSION: Findings suggesting osteoporosis, placing the patient at risk forfracture. 86601 A report detailing these results has been [...] ID:[id number] Group ID:SCO Type:Not on file Address: [place] [address] [place] [id number] Advance Directives * Full Code - Default [...] currently active code status orders. Care Teams Test Examiner Relationship Specialty Start Date End Date Addi Holland NP [address] [place], [place] PCP - General Family Medicine 03/04/21
--- OUTSIDE RECORDS SUMMARY | 2024-12-25 11:57 | XMS_ITS | Patient Health Record ---
Author Organization [facility] Address [address] [place] [address] Care Team Providers Care Physician Practice Manager Name Role Phone AUTUNM PADILLA Primary Care Provider Allergies Allergen (clinical drug [...] 90 days Active Vitamin A 3 MG (87804 UT) Capsule 1 capsule with food or [...] W/U Status Risk Notes Problem Opioid abuse (5432297) Opioid abuse, uncomplicated (F11.10) Active confirmed Acetaminophen -codeine 300 mg 1 tab since 11/2023 Consult notes 02/29/2024 Medical Record page 05/26 Problem Severe major depression, single episode, without psychotic features (86214453) Major depressive disorder, single episode, 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) Active confirmed PHQ-9 score 20 Severe Depression Problem Insomnia (162469325) Insomnia (G47.00) Active confirmed Problem Osteoporosis (51396197) Osteoporosis (M81.0) Active confirmed Problem Moderate recurrent major depression (14602966) 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 [address] [place] [address] 01/28/2024 AUTUMN BEASLEY [facility] [address] [place] [address] 02/29/2024 AUTUMN BEASLEY Encounter for general adult [...] possible duration of sleep aides, and discussed pinsetter mechanic automatic side effects of these. 02/29/2024 Osteoporosis (ICD-10 [...] Order Date CBC with Differential & Platelets (03858 9) [facility] 02/29/2024 TSH & Free T4 (694739) [facility] 4 UA Urinalysis with Reflex to Culture (37 3074) [facility] 02/29/2024 CMP Comp. Metabolic Panel (14) (098044) [facility] 02/29/2024 Lipid Panel (091654) [facility] 02/29/2024 Hemoglobin A1c 02/29/2024 Insurance Providers Payer Name Payer Address Payer Phone Subscriber Number Group Number Insured Name Patient Relationship to Insured Coverage Start Date Coverage End Date [employer] [facility] [address] [place] [address] [id number] Marie Engel Self - patient is the insured 4 4 Medical (General) History Medical History History ICD Code Insomnia Esophageal reflux oropharyngeal dyspnea Gastritis migraine dyslipidemia hypothyroidism osteoporosis anxiety essential hypertension Surgical History Surgery Date(Month/Year) shoulder surgery c section x2 hysterectomy nasal surgery carpal tunnel leg surgery left x2 NECK SURGERY
--- OUTSIDE RECORDS SUMMARY | 2024-12-25 11:57 | XMS_ITS | Clinical Summary ---
Author Organization [facility] Address [address] [address] Phone Care Team Providers Care Right Of Way Buyer Name Role Phone Addi Holland NP Primary [...] 08/19/2001 OSTEOPOROSIS SCREENING INITI AL (ONE-TIME) 08/19/2016 INFLUENZA VACCINE (#1) 2024 COVID-19 VACCINE (1 - 2023-2 5 season) 2024 RSV VACCINE (1 - 1-dose 75+ series) [...] file Insurance MEDICARE PART A & B MEDICARE REPLACEMENT MEDICARE PART A & B [address] [place], [place] [address] MEDICARE REPLACEMENT MEDICARE PART A & B MEDICARE PART A & B Member Subscriber Plan / Payer (Ef fective 2023-Present) Name:Marie Mckenzie Member ID:[id number] Relation to Subscriber:Self Name:Marie Mckenzie Subscriber ID:[id number] Payer ID:[id number] Group ID:Not on file Type:Medicare Address: [employer] [facility] [address] [address] MEDICARE PART A & B [facility] [employer] MEDICARE REPLACEMENT [place] [id number] MEDICARE PART A & B Care Teams Right Of Way Buyer Relationship Specialty Start Date End Date Addi Holland NP [address] [facility] [address] PCP - General Nurse Practitioner 02/17/23 Additional Source Comments The information contained in this document represents components of the legal health record. It is not the complete legal health record.[facility]
== END 2024-12-25 10:25 | disposition home or self-care (01) ==
PROVIDERS: PCP Nurse Practitioner Family; Visit Provider Internal Medicine
DX: M54.12 Radiculopathy, cervical region (principal); G43.909 Migraine, unspecified, not intractable, without status migrainosus; M47.812 Spondylosis without myelopathy or radiculopathy, cervical region
CPT/HCPCS: 99214

== ENCOUNTER → 2024-12-25 09:45 | Outpatient (BNVA) | payer OTHER, SELFPAY | PROVIDERS: PCP Nurse Practitioner Family; Visit Provider Internal Medicine | DX: M54.12 Radiculopathy, cervical region (principal); M47.812 Spondylosis without myelopathy or radiculopathy, cervical region; G43.909 Migraine, unspecified, not intractable, without status migrainosus | CPT/HCPCS: 99212 ==

== ENCOUNTER 2025-01-08 14:54 | Outpatient (AMB) | payer OTHER, SELFPAY ==
--- OUTSIDE RECORDS SUMMARY | 2024-01-28 06:15 | XMS_ITS ---
Author Organization [facility] Address [address] [place] [address] Care Team Providers Care Feather Drying Machine Operator Name Role Phone AUTUMN PADILLA Primary Care Provider REASON FOR VISIT Courtesy Visit Vital Signs Temperature 97.6 degrees Fahrenheit 01/28/20 24 Respiratory Rate 20 /min 01/28/2024 Height 5'2 in 01/28/2024 Weight 145 lbs 01/28/2024 BMI 26.52 kg/m2 01/28/2024 Oximetry 99 01/28/2024 Blood pressure systolic 120 01/28/20 24 Blood pressure diastolic 81 024 Encounters Encounter Location Date Provider Diagnosis [facility] [address] [place] [address] 01/28/2024 AUTUMN BEASLEY Plan Of Treatment No Information Progress Notes * LOIS NAGY MarieDO B:1950 (74 yo F)Acc No.[id number]:01/28/2024 Patient: Lawson janayshira Marie Nagy Provider: Lawson BEASLEY MD :1950 A ge:73 Y S ex:Female Date:01/28/2024 Phone: Address:[address] [place] [phone] Structured Data:Consent to r eceive voicemail/text messages? : YES Subjective: * Chief Complaints: * C ourtesy Visit Objective: * Vitals: I nitials: AM, BP sittin/81, RR:20/min, Oxygen sat %:99, Pulse sittin, Temp:97.6F, Wt:145lbs, Ht-in: 5'2 , BMI:26.52Index, Pain scale:01-10. Plan: * Procedure Codes: 3 074F SYST BP < 130 [id number] DIAST BP 80-89 MM HG Billing Information: * Procedure Codes: 3074F SYST BP < 130 mmHg. 3079F DIAST BP 80-89 MM HG. * Electronic signature of AUTUMN BEASLEY MD on 01/08/2025 at 04:56 PM EDT Sign off status: Pending * Provider: Lawson BEASLEY MD Date: 1 Generated for Tom kenny/Dania/Simiitting on: 0 01/08/2025 04:56 PM EDT
--- OUTSIDE RECORDS SUMMARY | 2024-02-28 05:15 | XMS_ITS ---
Author Organization [facility] Address [address] [place] [address] Care Team Providers Care Manager Media Name Role Phone AUTUMN PADILLA Primary Care Provider [phone] REASON FOR VISIT new patient Encounters Encounter Location Date Provider Diagnosis [facility] [address] [place] [address] 02/28/2024 AUTUMN BEASLEY Plan Of Treatment No Information Progress Notes * Marie ENGELDO B:1950 (74 yo F)Acc No.[id number]:02/28/2024 Patient: Lawson janayshira Marie Nagy Provider: Lawson BEASLEY MD :1950 A ge:73 Y S ex:Female Date:02/28/2024 Phone: Address:[address] [place], [place] [phone] Structured Data:Consent to r eceive voicemail/text messages? : YES Subjective: * Chief Complaints: * N ew patient * Electronic signature of AUTUMN BEASLEY MD on 01/08/2025 at 04:56 PM EDT Sign off status: Pending * Provider: Lawson BEASLEY MD Date: 1 04/29/2023 Generated for Printi ng/Faxing/eTransmitting on: 0 01/08/2025 04:56 PM EDT
--- OUTSIDE RECORDS SUMMARY | 2024-02-28 05:15 | XMS_ITS ---
Author Organization [facility] Address [address] [place] [address] Care Team Providers Care Self Defense Instructor Name Role Phone AUTUMN PADILLA Primary Care Provider REASON FOR VISIT new patient, Please request prev medical records Encounters Encounter Location Date Provider Diagnosis [facility] [address] [place] [address] 02/28/2024 AUTUMN BEASLEY Plan Of Treatment No Information Progress Notes * Marie ENGELDO B:1950 (74 yo F)Acc No.[id number]:02/28/2024 Patient: Marie Sterling Provider: Lawson BEASLEY MD :1950 A ge:73 Y S ex:Female Date:02/28/2024 Phone: Address:[address] [place], [place] [phone] Structured Data:Consent to r eceive voicemail/text messages? : YES Subjective: * Chief Complaints: * N ew patientPlease request prev medical records Billing Information: * Procedure Codes: * Electronic signature of AUTUMN BEASLEY MD on 01/08/2025 at 04:56 PM EDT Sign off status: Pending * Provider: Lawson BEASLEY MD Date: 04/29/2023 Generated for Printi ng/Faxing/eTransmitting on: 0 01/08/2025 04:56 PM EDT
--- OUTSIDE RECORDS SUMMARY | 2024-02-29 06:00 | XMS_ITS ---
Author Organization [facility] Address [address] [place] [address] Care Team Providers Care Program Manufacturing Leader Name Role Phone AUTUMN PADILLA Primary Care Provider [phone] REASON FOR VISIT MELTER SUPERVISOR ELECTRIC ARC FURNACE Encounters Encounter Location Date Provider Diagnosis [facility] [address] [place] [address] 02/29/2024 AUTUMN BEASLEY Plan Of Treatment No Information Progress Notes * Marie ENGELDO B:1950 (74 yo F)Acc No.[id number]:02/29/2024 Patient: Lawson kapoor YakovMarie Provider: Lawson BEASLEY MD :1950 A ge:73 Y S ex:Female Date:02/29/2024 Phone: Address:[address] [place], [place] [phone] Structured Data:Consent to r eceive voicemail/text messages? : YES Subjective: * Chief Complaints: * N P * Electronic signature of AUTUMN BEASLEY MD on 01/08/2025 at 04:57 PM EDT Sign off status: Pending * Provider: Lawson BEASLEY MD Date: 04/30/2023 Generated for Printi ng/Faxing/eTransmitting on: 0 01/08/2025 04:57 PM EDT
--- OUTSIDE RECORDS SUMMARY | 2024-06-16 04:30 | XMS_ITS ---
Author Organization [facility] Address [address] [place] [address] Care Team Providers Care Manager Financial Name Role Phone Macario Scott Primary Care Provider REASON FOR VISIT SPIROMETRY Social History Sex Assigned At : Social History Observation Description Sex Assigned At Female Encounters Encounter Location Date Provider Diagnosis [facility] [address] [address] 06/16/2024 Macario Scott Plan Of Treatment No Information Progress Notes * EDUARDO ABREUDOB:[birth year] (74 yo F)Acc No.[id number]:06/16/2024 Progress Note Patient: EDUARDO STORM Provider: Andrzej Scott MD :1950 A ge:73 Y S ex:Female Date:06/16/2024 Address:[address] [place] [address] Subjective: * Chief Complaints: * 1 . SPIROMETRY. * Medical History: Objective: * Vitals: Assessment: Plan: * Treatment: * Images: * Electronic signature of Anoop Scott MD on 01/08/2025 at 04:56 PM EDT Sign off status: Pending * Provider: Andrzej Scott MD Date: 06/16/2024 Generated for Tom kenny/Dania/Simiitting on: 01/08/2025 04:56 PM EDT
--- OUTSIDE RECORDS SUMMARY | 2024-06-16 05:15 | XMS_ITS ---
Author Organization [facility] Address [address] [place] [address] Care Team Providers Care Validation Technician Name Role Phone Macario Scott Primary Care Provider REASON FOR VISIT F/UP REFILL Social History Sex Assigned At : Social History Observation Description Sex Assigned At Female Encounters Encounter Location Date Provider Diagnosis [facility] [address] [address] 06/16/2024 Macario Scott Plan Of Treatment No Information Progress Notes * EDUARDO ABREUDOB:[birth year] (74 yo F)Acc No.[id number]:06/16/2024 Progress Note Patient: EDUARDO STORM Provider: Andrzej Scott MD :1950 A ge:73 Y S ex:Female Date:06/16/2024 Address:[address] [place] [address] Subjective: * Chief Complaints: * 1 . F/UP REFILL. * Medical History: Objective: * Vitals: Assessment: Plan: * Treatment: * Images: Care Plan Details* * Electronic signature of Anoop Scott MD on 01/08/2025 at 04:56 PM EDT Sign off status: Pending * Provider: Andrzej Scott MD Date: 06/16/2024 Generated for Tom kenny/Dania/eTransmitting on: 01/08/2025 04:56 PM EDT
--- OUTSIDE RECORDS SUMMARY | 2024-09-25 04:45 | XMS_ITS ---
Author Organization [facility] Address [address] [place] [address] Care Team Providers Care Senior Engineer Name Role Phone Macario Scott Primary Care Provider REASON FOR VISIT LABS Social History Sex Assigned At : Social History Observation Description Sex Assigned At Female Encounters Encounter Location Date Provider Diagnosis [facility] [employer] [address] [address] 09/25/2024 Macario Scott Plan Of Treatment No Information Progress Notes * EDUARDO ABREUDOB:[birth year] (74 yo F)Acc No.[id number]:09/25/2024 Progress Note Patient: EDUARDO STORM Provider: Andrzej Scott MD :1950 A ge:74 Y S ex:Female Date:09/25/2024 Address:[address] [place] [address] Subjective: * Chief Complaints: * 1 . LABS. * Medical History: Objective: * Vitals: Assessment: Plan: * Treatment: * Images: * Electronic signature of Anoop Scott MD on 01/08/2025 at 04:57 PM EDT Sign off status: Pending * Provider: Andrzej Scott MD Date: 09/25/2024 Generated for Tom kenny/Dania/Simiitting on: 01/08/2025 04:57 PM EDT
--- OUTSIDE RECORDS SUMMARY | 2024-10-02 04:45 | XMS_ITS ---
Author Organization [facility] Address [address] [place] [address] Care Team Providers Care Sleep Technologist Name Role Phone Macario Scott Primary Care Provider [phone] REASON FOR VISIT Lab Result Social History Sex Assigned At : Social History Observation Description Sex Assigned At Female Encounters Encounter Location Date Provider Diagnosis [facility] [address] [address] 10/02/2024 Macario Scott Plan Of Treatment No Information Progress Notes * EDUARDO ABREUDOB:[birth year] (74 yo F)Acc No.[id number]:10/02/2024 Progress Note Patient: EDUARDO STORM Provider: Andrzej Scott MD :1950 A ge:74 Y S ex:Female Date:10/02/2024 Address:[address] [place] [address] Subjective: * Chief Complaints: * 1 . Lab Result. * Medical History: Objective: * Vitals: Assessment: Plan: * Treatment: * Images: Care Plan Details* * Electronic signature of Anoop Scott MD on 01/08/2025 at 04:57 PM EDT Sign off status: Pending * Provider: Andrzej Scott MD Date: 10/02/2024 Generated for Tom kenny/Dania/eTransmitting on: 01/08/2025 04:57 PM EDT
--- NOTE | 2025-01-08 13:37 | A.OFFVIS_ITS ---
VS Expanded 01/08/25 13:48 Height 5 ft 2 in Weight 139 lb BMI 25.4 Intake Visit Reasons: TV PO LSG 06/16/23 Allergies tramadol Allergy (Severe, Verified 12/25/24 09:50) Itching Medication List - Last Reconciled 01/08/25 by YOUNG Goins atenolol 50 mg PO DAILY Held on 06/18/23. Instructions: Resume on 06/19/23. Check your blood pressure every morning as soon as you wake up and send it to Dr. Alberto. Do no take the blood pressure medication if the blood pressure is below 120/70. Wait every day to hear back from Dr. Alberto before you take the medication. ohebghbahm-jlkggddtuimhb-qbmz 50-300-40 mg (Fioricet) 2 caps PO Q8H PRN [chair lift daily use NS] clotrimazole 1% 1 appl topical BID cyclobenzaprine 5 mg PO BEDTIME PRN hospital bed daily miscellaneous medical supply daily use, ECO-Patch Reusable self adhesive electrodes for TENS FES/NMES ondansetron 4 mg PO Q8H PRN pantoprazole 40 mg PO DAILY rizatriptan take 1 tab at onset of headache; if no relief may repeat 1 tab after at least 2 hrs; max = 3 tabs/24 hr PO sucralfate (Carafate) 10 mL PO BID trazodone 150 mg PO BEDTIME HPI Comments Details: This is a 74 yo F who is s/p LSG 06/16/2023. Presents for 18 month post op visit. Weight at last visit in November 2024 was 139.2 pounds; weight today is about the same. At last visit, reported some abdominal discomfort when she takes in anything . Even if it eat a little bit it feels like I eat a lot. No vomiting. Overall these symptoms have been getting better. The discomfort resolves on its own within a half hour. This happens even with water/liquids. Did have reflux prior to surgery, has been better since then, and this does not feel like reflux. At last visit I started her on trial of pantoprazole and carafate. She says she feels much better now. Pain is improved. Present meal plan includes: eats 2x/day, includes meat/eggs, tries to make sure foods are high in protein however does eat rice sometimes occasionally will incorporate shake or bar taking antonia MVI - at last visit I gave her RightBMI terrance info but she says she did not incorporate a plan from the terrance Exercise routine includes: walks outside- has been walking more has light weights at home 2-3lb weights Pt reports excess skin of the abdomen. She has experienced itchy rashes in the skin fold. Has tried OTC creams without relief. She notices sweat collecting in the fold, has to clean more frequently than normal to try to prevent rashes. Has to wear supportive clothing to hold the excess skin in place, tight waistbands. She notices discomfort when performing activities of daily living such as walking which is more uncomfortable due to excess skin getting in the way. Pt reports excess skin of the upper arms. She is experiencing chafing when skin rubs against the torso. She has to wear loose sleeves at all times to accommodate the excess. The weight of the excess skin causes additional discomfort to her preexisting shoulder issues and it is difficult to lift her arm over her head due to discomfort from the weight of it. These issues have been going on since spring of this year as she continued to lose weight. [facility] Medical History Insomnia PONV (postoperative nausea and vomiting) GERD (gastroesophageal reflux disease) Oropharyngeal dysphagia Gastritis Migraines Dyslipidemia Hypothyroidism Osteoporosis Anxiety Essential hypertension Surgical History History of shoulder surgery History of section History of nasal surgery History of surgery History of carpal tunnel surgery History of neck surgery Family History Father Cancer of prostate Mother HTN (hypertension) Maternal Grandmother Stroke Asthma Brother Substance use disorder Social History Household Members: Spouse Caregiver staying overnight: No Housing: Apartment 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: Yes (, he also has a HEAD GRINDER) Do you presently have 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 or other home services: No 75 years or older and lives alone: No Alcohol intake: never Patient Tobacco Use Status: Former Tobacco user Tobacco use type: Cigarette e-Cigarette/Vaping Use: Never Used Second Hand Smoke Exposure: No service: No Current occupational status: retired Cognitive needs: No Hearing needs: No Vision needs: No Physical Exam Vital Signs: BMI result Body Mass Index 25.4 Telehealth Telehealth Telehealth Platform: Telephone Location of provider rendering services: other Location of patient: address on file Patient Identification confirmed using: Name, : Yes Telehealth method: voice only Patient verbally consented to treatment: Yes Patient verbally consented to billing insurance company: Yes Patient informed of any privacy concerns related to visit: Yes Minutes spent on Phone/Video with Pt.: 16 Assessment & Plan Assessment & Plan (1) Overweight: Code(s): E66.3 - Overweight Category: Medical (2) S/P laparoscopic sleeve gastrectomy: Comment: june 2023 Code(s): Z98.84 - Bariatric surgery status Category: Surgical (3) Excess skin: Code(s): L98.7 - Excessive and redundant skin and subcutaneous tissue Category: Medical Plan Will rule out H pylori contributing to pt's abdominal pain. Strongly insisted she follow a better meal plan especially in anticipation of potential upcoming surgery. Gave her new plan: 7-9am Premier premade 4oz mixed with 4oz UAM 11am-12pm half Pure protein bar 2-4pm same shake as above 5pm dinner- 4f protein/4f veg or salad 7-8pm half Pure bar Patient will text me with any issues with above meal plan. She is experiencing issues of excess skin of abdomen resulting in frequent painful, itchy, malodorous rashes which are unrelieved by topical antifungals. In addition she is experiencing limitations/discomfort in activities of daily living, including walking, bending. She requires the use of special clothing at all times to try to prevent discomfort but her issues have not been completely relieved by conservative measures. She would benefit from definitive treatment of panniculectomy. She is also experiencing issues of excess skin of upper arms resulting in frequent painful chafing, requiring the use of special clothing at all times, limiting her normal range of motion and causing shoulder pain. She would benefit from brachioplasty. Photos previously taken, will submit to insurance. Orders: Orders H Pylori Breath Test Today
[2025-01-08 13:48] VITALS: BMI 25.4
--- OUTSIDE RECORDS SUMMARY | 2025-01-08 16:56 | XMS_ITS | Encounter Summary ---
Author Organization [facility] Address [address] [place] [address] Phone Care Team Providers Care Dock Worker Name Role Phone Addi Holland NP Primary Care Provider + Encounter Details Date Type Department Care Team (Late st Contact Info) Description 11/02/2023 Procedure Pass [facility] Endoscopy Admitting Dept Virtual Department [address] [place] [address] Social History Tobacco Use Types Packs/Day Years [...] on filedocumented in this encounter Care Teams Dock Worker Relationship Specialty Start Date End Date Addi Holland NP [address] [place] [address] PCP - General Nurse Practitioner 02/17/23 documented as of this encounter Additional Source Comments The information contained in this document represents components of the legal health record. It is not the complete legal health record.[facility]
--- OUTSIDE RECORDS SUMMARY | 2025-01-08 16:56 | XMS_ITS | Clinical Summary ---
Author Organization [facility] Address [address] [place] [address] Phone Care Team Providers Care Firebreak Cutter Name Role Phone Addi Holland NP Primary [...] Diagnosed Date TIA (transient ischemic attack) 09/26/2024 Surgical History Surgery Date Site/Laterality Comments NECK SURGERY 2016 PROCEDURE: HISTORICAL NECK SURGERY; COMMENT: arthrodesis ANKLE SURGERY PROCEDURE: HISTORICAL ANKLE SURGERY HYSTERECTOMY PROCEDURE: HISTORICAL HYSTERECTOMY SHOULDER SURGERY PROCEDURE: HISTORICAL SHOULDER SURGERY CARPAL TUNNEL RELEASE Bilateral PROCEDURE: HISTORICAL CARPAL TUNNEL REL UPPER GASTROINTESTINAL ENDOSCOPY 08/18/2016 PROCEDURE: OH UPPER GI ENDOSCOPY PERFORMED; COMMENT: Erosive gastritis, [...] for your loved ones. For example, childcare attendant or elderly care for an older adult? [...] Date Recorded What is your living situation? Unrecognized valu e 09/26/2024 Interpersonal Safety Answer Date Record ed Physical Abuse Unrecognized value 09/26/2024 Verbal Abuse Unrecognized value 09/26/2024 Comments No Sex and Gender Information [...] Zoster Vaccines (3 of 3) 05/12/2019 03/17/2019, 03/0 07/2015 Breast Cancer Screening 06/27/2021 06/28/2019, 12/31 Colorectal Cancer Screening: Colonoscopy 03/15/2022 Hepatitis C Screening 03/15/2022 Medicare Annual Wellness Visit 03/15/2022 Depression Screening 04/12/2024 COVID-19 Vaccine ( - season) 2024 03/21/2021, 09/03/2020, 08/13/2020 Influenza Vaccine [...] Procedure Name Priority Date/Time Associated Diagnosis Comments BASIC METABOLIC PANEL Routine 09/29/2024 5:58 AM EDT LIPID PANEL WITH REFLEX TO DIRECT LDL Add-On 09/27/2024 10:20 AM EDT SCR MAMMO BI INCL CAD Routine 06/28/2019 8:17 AM EDT Encounter for other screening for malignant neoplasm of breast [facility] DEXA AXIAL SKELETON Routine 06/22/2017 1:56 PM EDT Asymptomatic menopausal state from Last 3 Months or Most Recently Relevant to Health Maintenance Results * (ABNORMAL) Basic metabolic panel (09/29/2024 5:58 AM EDT) Sodium 137 133 - 145 mmol/L LAB CHEMISTRY METHOD 09/29/2024 7:05 AM [facility] Potassium 4.3 3.5 - 5.5 mmol/L LAB CHEMISTRY METHOD 09/29/2024 7:05 AM [facility] Chloride 100 [...] VIDAL LAB BLOOD ORDERABLES Hoa l Result [facility] [address] [place] [address], [place] [phone] * (ABNORMAL) Lipid panel with reflex to direct LDL (09/27/2024 10:20 AM EDT) Cholesterol 234(H) 0 - 200 mg/dL LAB CHEMISTRY METHOD 09/27/2024 12:46 PM EDT [facility] Triglycerides 71 0 - 150 mg/dL LAB CHEMISTRY METHOD 09/27/2024 12:46 PM EDT [facility] HDL 79 >=40 mg/dL LAB CHEMISTRY METHOD 09/27/2024 12:46 PM EDT [facility] LDL Calculated 141(H) 0 - 100 mg/dL LAB CHEMISTRY METHOD 09/27/2024 12:46 PM EDT [facility] VLDL Cholesterol Koby 14.2 mg/dL LAB CHEMISTRY METHOD 09/27/2024 12:46 PM EDT [facility] Non HDL Chol. (LDL+VLDL) 155(H) <145 mg/dL LAB CHEMISTRY METHOD 09/27/2024 12:46 PM EDT [facility] Chol/HDL Ratio 3.0 0.0 - 4.4 LAB CHEMISTRY METHOD 09/27/2024 12:46 PM EDT [facility] Blood Venous blood specimen / Unknown Venipuncture / Unknown 09/27/2024 10:20 AM EDT 09/27/2024 10:25 AM EDT Katelyn VIDAL LAB BLOOD ORDERABLES Hoa l Result [facility] [address] [place] [address], [place] [phone] * SCR MAMMO BI INCL CAD (06/28/2019 [...] AM EDT Narrative 06/22/2017 1:[address] [facility] Diagnostic Imaging Department [address] [place] [address] Patient: EDUARDO ENGEL /Age/Sex: 1950 - 66 - F Unit#: [id number] Location/Status: SPDIMAM/REG CLI Mnemonic/Ordering Site: [facility]/SPMAM Ordering Physician: LITA TORRES MD [facility] Dexa Axial Skeleton - 06/22/17729 [facility] Dexa Axial Skeleton INDICATION: POST [...] placing the patient at risk for fracture. 545[address] A report detailing these results has been enclosed. Dictating Physician: BEN FREDERICK MD Electronically Signed by: BEN FREDERICK MD Dic Date/Time: 06/22/17 1353 Sign date/Time: 06/22/17 1356 Procedure Note Ben Frederick MD - 03/31/2022 [facility] Diagnostic Imaging Department [address] [place] [address] Patient: JONAH NAGYEDUARDO /Age/Sex: 1950 - 66 -F Unit#: [id number] Location/Status: SPDIMAM/REG CLI Mnemonic/Ordering Site: MAMDEXAAX/SPMAM Ordering Physician: LITA TORRES MD [facility] Dexa Axial Skeleton - 06/22/17729 [facility] Dexa Axial Skeleton INDICATION: POST MENOPAUSE Technique: Bone densitometry was performed utilizing dual energy x-ray absorptiometry (DEXA). The lumbar spine is evaluated in the AP projectionfrom L1 through L4. The proximal femora are evaluated in the AP projection bilaterally. There are no prior studies available for direct comparison at [facility]. Findings: AP spine: Bone mineral density: 0.983 gm/cm2 T-score: -1.5 Femoral total (mean, bilateral): Bone mineral density: 0.704 gm/cm2 T-score: -2.4 Left femoral neck: Bone mineral density: 0.618 gm/cm2 T-score: -3.0 IMPRESSION: Findings suggesting osteoporosis, placing the patient at risk forfracture. [address] A report detailing these results has been enclosed. Dictating Physician: BEN FREDERICK MD Electronically Signed by: BEN FREDERICK MD Dic Date/Time: 06/22/17 1356 Sign date/Time: 06/22/17 1356 Lita Torres MD IMG BI PROCEDURES Final Resu lt from Last 3 Months or Most Recently Relevant to Health Maintenance Insurance [address] [place] [address] MEDICARE Member Subscriber Plan / Payer (Ef fective 2024-Present) Name:EDUARDO ABREU Relation to Subscriber:Self Name:Eduardo Engel Payer ID:[id number] Group ID:[id number] Type:Not on file Address: [address] [facility] [place] [address] Advance Directives * Full Code - Default [...] currently active code status orders. Care Teams Firebreak Cutter Relationship Specialty Start Date End Date Addi Holland NP [address] [place], [place] PCP - General Family Medicine 03/04/21
--- OUTSIDE RECORDS SUMMARY | 2025-01-08 16:56 | XMS_ITS | Encounter Summary ---
Author Organization [facility] Address [address] [place] [address] Phone Care Team Providers Care Lithography Contact Worker Name Role Phone Addi Holland NP Primary Care Provider + Encounter Details Date Type Department Care Team (Late st Contact Info) Description 03/08/2023 Procedure Pass [facility] Endoscopy Admitting Dept Virtual Department [address] [place] [address] Social History Tobacco Use Types Packs/Day Years [...] on filedocumented in this encounter Care Teams Lithography Contact Worker Relationship Specialty Start Date End Date Addi Holland NP [address] [facility] [place] [address] PCP - General Nurse Practitioner 02/17/23 documented as of this encounter Additional Source Comments The information contained in this document represents components of the legal health record. It is not the complete legal health record.[facility]
--- OUTSIDE RECORDS SUMMARY | 2025-01-08 16:56 | XMS_ITS | Patient Health Record ---
Author Organization [facility]. Address [address] [place] [address] Care Team Providers Care Legal Secretary Name Role Phone Macario Scott Primary Care Provider Allergies Allergen (clinical drug ingredient) Drug/Non Drug Allergy documented on EMR Reaction Allergy Type Onset Date Status tramadol Tramadol rash Drug Allergy Active Results Component Value Reference Range Notes Occult Blood, Fecal, IA-LAB BRENNON Reviewed date:05/04/2024 04:08:08 PM Interpretation: Performing Lab:[facility] [address] [id number], Phone - [phone], Director - Bree Notes/Report: Occult Blood, Fecal, IA Negative Negative TSH reflex to T4 Reviewed date:04/26/2024 08:51:11 AM Interpretation: Performing Lab:[facility] [address] [id number], Phone - [phone], Director - Bree Notes/Report: TSH 3.730 0.450-4.500 uIU/mL Microalb/Creat Ratio, Timed Ur-LC Reviewed date:04/26/2024 08:51:11 AM Interpretation: Performing Lab:[facility] [address] [id number], Phone - [phone], Director - MDShanita Notes/Report: Ur.Collec. Interval 0 [...] nt Reviewed date:04/26/2024 08:51:11 AM Interpretation: Performing Lab:[facility] [id number], Phone - [phone], Director - Bree Notes/Report: Interpretation Note Supplemental report is available. PDF . CBC With Differential/Platel et-LC-Q Reviewed date:04/26/2024 08:51:11 AM Interpretation: Performing Lab:[facility] [address] [id number], Phone - [phone], Director - Bree Notes/Report: WBC 5.5 3.4-10.8 [...] Immature Grans (Abs) 0.0 0.0-0.1 x10E3/uL Urinalysis, Bxxeioid-EY-D Reviewed date:04/26/2024 08:51:11 AM Interpretation: Performing Lab:[facility] [address] [id number], Phone - [phone], Director - Bree Notes/Report: Specific [place] 1.016 1.005-1.030 pH 7.0 5.0-7.5 Urine-Color Yellow [...] 14+eGFR-LC-Q Reviewed date:04/26/2024 08:51:11 AM Interpretation: Performing Lab:[facility], [address] [place] [id number], Phone - [phone], Director - Bree Notes/Report: Glucose 94 70-99 [...] Reviewed date:04/26/2024 08:51:11 AM Interpretation: Performing Lab:[facility], [address] [place] [id number], Phone - [phone], Director - Bree Notes/Report: Cholesterol, Total 232 100-199 mg/dL Triglycerides 76 0-149 mg/dL HDL Cholesterol 71 >39 mg/dL VLDL Cholesterol Koby 13 5-40 mg/dL LDL Chol Calc ([facility]) 148 0-99 mg/dL LDL/HDL Ratio 2.1 0.0-3.2 ratio Avg.Risk 3.6 3.2 3X Avg.Risk 8.0 6.1 LDL/HDL Ratio 1/2 Avg.Risk 1.0 1.5 Men Women 2X Avg.Risk 6.2 5.0 EKG Electrocardiogram Reviewed date:03/24/2024 02:15:49 PM Interpretation: Performing Lab: Notes/Report: TSH reflex to T4 Reviewed date:03/31/2024 08:44:59 AM Interpretation: Performing Lab:[facility] [address] [id number], Phone - [phone], Director - Bree Notes/Report: TSH 1.770 0.450-4.500 uIU/mL Cardiovascular Risk Assessme nt Reviewed date:04/06/2024 12:00:17 PM Interpretation: Performing Lab:[facility] [address] [id number], Phone - [phone], Director - Bree Notes/Report: Interpretation Note Supplemental report is available. PDF . Occult Blood, Fecal, IA-LAB BRENNON Reviewed date:03/31/2024 08:45:03 AM Interpretation: Performing Lab:[facility] [address] [id number], Phone - [phone], Director - Bree Notes/Report: Occult Blood, Fecal, IA Negative Negative Microalbumin/Creatinine Rati o, Random Urine-LC Reviewed date:03/31/2024 08:45:06 AM Interpretation: Performing Lab:[facility] [address] [id number], Phone - [phone], Director - Bree Notes/Report: Creatinine, Urine 122.7 Not Estab. mg/dL Albumin, Urine 12.5 Not Estab. ug/mL Alb/Creat Ratio 10 0-29 mg/g creat Moderately increased: 30 - 300 Normal: 0 - 29 Severely increased: >300 CBC With Differential/Platel et-LC-Q Reviewed date:03/31/2024 08:45:13 AM Interpretation: Performing Lab:[address] [id number], Phone - [phone], Director - Bree Notes/Report: WBC 7.0 3.4-10.8 [...] Immature Grans (Abs) 0.0 0.0-0.1 x10E3/uL Urinalysis, Xhgbltxk-PO-V Reviewed date:03/31/2024 08:45:17 AM Interpretation: Performing Lab:[facility] [address] [place] [id number], Phone - [phone], Director - Bree Notes/Report: Specific [place] 1.020 1.005-1.030 pH 7.0 5.0-7.5 Urine-Color Yellow [...] 14+eGFR-LC-Q Reviewed date:03/31/2024 08:45:20 AM Interpretation: Performing Lab:[facility] [id number], Phone - [phone], Director - Bree Notes/Report: Glucose 82 70-99 [...] Panel-Q-LC Reviewed date:03/31/2024 08:45:24 AM Interpretation: [facility]forming [facility] [address] [place] [id number], Phone - [phone], Director - Bree Notes/Report: Cholesterol, Total 222 100-199 mg/dL Triglycerides 65 0-149 mg/dL HDL Cholesterol 76 >39 mg/dL VLDL Cholesterol Koby 11 5-40 mg/dL LDL Chol Calc ([facility]) 135 0-99 mg/dL Reason For Referral Reason If additional kathy ting is needed, please refer back to PCP. Please fax consult notes and/or results of procedure approved to [phone]. Thanks! ~Annual Eye Exam~ Diagnosis 1 Encounter for examin ation of eyes and vision without abnormal findings (Z01.00) [facility] Referring Provider First Name Macario Referring Provider Last Name Tyler Referring Provider Speciality General Pr actice Referred Provider [employer], [facility] Referred Provider Specialty Agricultural Technical Officer Clinical Notes Curt Fernandez 12/12 02:56:13 PM >GAVE PT REFERRAL SAME DAY ON 03/24/2024 Referral Priority Routine Reason Please fax consul t notes and/or results of procedure approved to [phone]. Thanks! CONSULT ONLY - MANAGED CARE ~Annual Eye Exam~ Diagnosis 1 Encounter for examin ation of eyes and vision without abnormal findings (Z01.00) Referral [facility] Referring Provider First Name Macario Referring Provider Last Name Tyler Referring Provider Speciality General June actice Referred Provider [employer] Referred Provider Specialty Agricultural Technical Officer Referral Priority Routine Medications Medication SIG (Take, [...] W/U Status Risk Notes Problem Mixed hyperlipidemia (585375761) Mixed hyperlipidemia (E78.2) Active confirmed Problem Chronic kidney disease due to hypertension (398416220998521) Hypertensive chronic kidney disease with stage 1 through stage 4 chronic kidney disease, or unspecified chronic kidney disease (I12.9) Active confirmed Problem Fibromyalgia (057313441) Fibromyalgia (M79.7) Active confirmed Problem Chronic insomnia (457001536) Chronic insomnia (F51.04) Active confirmed Problem Vertigo (377855601) Vertigo (R42) Active confirmed Problem Acquired hypothyroidism (517850300) Acquired hypothyroidism (E03.9) Active confirmed Problem Migraine (70936147) Migraine syndrome (G43.909) Active confirmed Problem Chronic kidney disease stage 2 (599950380) CKD (chronic kidney disease), stage II (N18.2) Active confirmed GFR 75 as per lab results from 5 Problem Former smoker (4204677) Former smoker (Z87.891) Active confirmed Problem Moderate recurrent major depression (18516170) 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) Active confirmed Problem Uncomplicated severe persistent asthma (074296841) Severe persistent asthma without complication (J45.50) Active [...] N/A Encounters Encounter Location Date Provider Diagnosis [facility] [address] [address] [place] [address] 03/24/2024 Macario [facility] [address] [address] [address] [place] [address] 03/24/2024 Macario [facility] [address] [address] [place] [address] 03/31/2024 [facility] [address] [address] [address] [place] [address] 03/24/2024 Macario Scott Essential (primary) hypertension I10 [...] vision without abnormal findings Z01.00 [address] [address] [place] [address] 03/31/2024 Macariochrissy Johnsarez Hypertensive chronic kidney disease with stage 1 [...] of 25.0 to 25.9 in adult Z68.25 [facility] [address] [facility] [address] [place] [address] 04/24/2024 Macariochrissy Johnsarez Acquired hypothyroid ism E03.9 ; Encounter for general adult medical examination without abnormal findings Z00.00 ; Essential (primary) hypertension I10 and Mixed hyperlipidemia E78.2 [facility] [address] [address] 05/02/2024 Macario Scott Severe persistent asthma without [...] Treatment Notes Treatment Clinical Notes Section Notes 03/31/2024 Hypertensive chronic kidney disease with stage [...] asthma without complication (ICD-10 - J45.50) 03/24/2024 Essential (primary) hypertension (ICD-10 - I10) Blood pressure control and daily exercise as tolerated is recommended. Will continue to monitor. 03/24/2024 Migraine syndrome (ICD-10 - G43.909) 03/24/2024 Mixed hyperlipidemia (ICD-10 - E78.2) 05/02/2024 Hypertensive chronic kidney disease with stage 1 through stage 4 chronic kidney disease, or unspecified chronic kidney disease (ICD-10 - I12.9) CKD Stage II due to HTN. Blood pressure control and daily exercise as tolerated is recommended. Will continue to monitor. 04/24/2024 Essential (primary) hypertension (ICD-10 - I10) 03/31/2024 Moderate recurrent major depression (ICD-10 - F33.1) Recommended to patient avoid stressful situations. Will continue to monitor. 03/31/2024 Severe persistent asthma without complication (ICD-10 - J45.50) 04/24/2024 Mixed hyperlipidemia (ICD-10 - E78.2) 05/02/2024 CKD (chronic kidney disease), stage II (ICD-10 - N18.2) GFR 75 as per lab results from 04/26/2024 GFR 75 as per lab results from 03/25/2024 03/24/2024 Severe persistent asthma without complication (ICD-10 - J45.50) 03/24/2024 Fibromyalgia (ICD-10 - M79.7) Oriented patient to take Ibuprofen over the counter for pain as needed, will continue to monitor. 03/31/2024 Mixed hyperlipidemia (ICD-10 - E78.2) 05/02/2024 Mixed hyperlipidemia (ICD-10 - E78.2) 03/31/2024 Migraine syndrome (ICD-10 - G43.909) 05/02/2024 Migraine syndrome (ICD-10 - G43.909) 03/24/2024 Acquired [...] avoid stressful situations. Will continue to monitor. 03/31/2024 Former smoker (ICD-10 - Z87.891) Patient quit smoking 05/02/2024 Vertigo (ICD-10 - R42) 03/24/2024 Chronic insomnia (ICD-10 - F51.04) Continue treatment of Trazadone. 03/24/2024 Vertigo (ICD-10 - R42) 05/02/2024 Overweight (BMI 25.0-29.9) (ICD-10 - E66.3) Avoid overeating, eating too quickly, eating high-fat foods, eating during stressful situations, or drinking too much alcohol or coffee. Counseled patient on adequate diet and exercise. 03/31/2024 Body mass index (BMI) of 25.0 to 25.9 in adult (ICD-10 - Z68.25) 03/24/2024 Overweight (BMI 25.0-29.9) (ICD-10 - E66.3) [...] immunochemical test screening (ICD-10 - Z12.11) 03/24/2024 Encounter for screening mammogram for breast cancer (ICD-10 - Z12.31) 05/02/2024 Screening for osteoporosis (ICD-10 - Z13.820) 03/24/2024 Encounter for examination of eyes and vision without abnormal findings (ICD-10 - Z01.00) 03/24/2024 Other 05/02/2024 Other Plan Of Treatment Pending Test Test Name Order Date DEXA Hip and Spine 03/24/2024 DEXA Hip and Spine 05/02/2024 EKG Electrocardiogram 05/02/2024 SPIROMETRY 05/02/2024 Lipid Panel-Q-LC 05/02/2024 Comprehensive Metabolic Panel 14+eGFR-LC -Q 05/02/2024 Urinalysis, Depqcipg-QF-Q 05/02/2024 CBC With Differential/Wenlzsex-SI-B 04/13 Mammo SCREENING MAMMO DIGITAL, SOHEILA 05/02 Mammo SCREENING MAMMO DIGITAL, SOHEILA 03/24 CHEST X-RAY (PA/LATERAL) 05/02/2024 CHEST X-RAY (PA/LATERAL) 03/24/2024 Future Test Test Name Order Date Lipid Panel With LDL/HDL Ratio-LC 2024 Comprehensive Metabolic Panel 14+eGFR-LC -Q 09/25/2024 Urinalysis, Ewsxqjsq-QH-T 09/25/2024 CBC With Differential/Xhopyzux-HS-M 09/10 Insurance Providers Payer Name Payer Address Payer Phone Subscriber Number Group Number Insured Name Patient Relationship to Insured Coverage Start Date Coverage End Date [facility] [address] [address] [place] [address] [id number] [place], [place] Self - patient is the insured Medical (General) History Medical History History ICD Code hyperension asthma sinusitis migraines thyroid Surgical History Surgery Date(Month/Year) hystrectomy total 1996 1970,1971 right leg n/a nose n/a carpal tunel on both hands n/a
--- OUTSIDE RECORDS SUMMARY | 2025-01-08 16:56 | XMS_ITS | Encounter Summary ---
Author Organization [facility] Address [address] [place] [address] Phone Care Team Providers Care Edge Molder Name Role Phone Addi Holland NP Primary Care Provider + Encounter Details Date Type Department Care Team (Late st Contact Info) Description 03/01/2023 Procedure Pass [facility]oscopy Admitting Dept Virtual Department [address] [place] [address] Social History Tobacco Use Types Packs/Day Years [...] on filedocumented in this encounter Care Teams Edge Molder Relationship Specialty Start Date End Date Addi Holland NP [address] [facility] [address] PCP - General Nurse Practitioner 02/17/23 documented as of this encounter Additional Source Comments The information contained in this document represents components of the legal health record. It is not the complete legal health record.[facility]
--- OUTSIDE RECORDS SUMMARY | 2025-01-08 16:57 | XMS_ITS | Patient Health Record ---
Author Organization [facility] Address [address] [place] [address] Care Team Providers Care Battery Stacker Name Role Phone AUTUMN PADILLA Primary Care Provider Allergies Allergen (clinical [...] 90 days Active Vitamin A 3 MG (88990 UT) Capsule 1 capsule with food or [...] W/U Status Risk Notes Problem Opioid abuse (3161589) Opioid abuse, uncomplicated (F11.10) Active confirmed Acetaminophen -codeine 300 mg 1 tab since 11/2023 Consult notes 02/29/2024 Medical Record page 05/26 Problem Severe major depression, single episode, without psychotic features (72655720) Major depressive disorder, single episode, 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) Active confirmed PHQ-9 score 20 Severe Depression Problem Insomnia (900799907) Insomnia (G47.00) Active confirmed Problem Osteoporosis (23321504) Osteoporosis (M81.0) Active confirmed Problem Moderate recurrent major depression (93454994) 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 Active confirmed PHQ-9 score 20 Severe Depression Date 02/29/2024 [facility] page 5 the patient has Moderate recurrent major depression Problem Gastroesophageal reflux disease (519096461) GERD (K21.9) Active confirmed Vital Signs Temperature 97.4 degrees Fahrenheit 02/29/2024 Respiratory Rate 19 /min 02/29/2024 Blood pressure diastolic 89 02/29/2024 Oximetry 99 02/29/2024 Height 62 in 02/29/2024 Blood pressure systolic 130 02/29/2024 Weight 143 lbs 02/29/2024 BMI 26.15 kg/m2 02/29/2024 Encounters Encounter Location Date Provider Diagnosis [facility] [address] [place] [address] 01/28/2024 AUTUMN BEASLEY [facility] [address] [place] [address] 02/29/2024 AUTUMN BEASLEY Encounter for general adult [...] possible duration of sleep aides, and discussed terminal clerk side effects of these. 02/29/2024 Osteoporosis (ICD-10 [...] Order Date CBC with Differential & Platelets (84735 9) [facility] 02/29/2024 TSH & Free T4 (114623) [facility] 4 UA Urinalysis with Reflex to Culture (37 9793) [facility] 02/29/2024 CMP Comp. Metabolic Panel (14) (453406) [facility] 02/29/2024 Lipid Panel (625968) [facility] 02/29/2024 Hemoglobin A1c 02/29/2024 Insurance Providers Payer Name Payer Address Payer Phone Subscriber Number Group Number Insured Name Patient Relationship to Insured Coverage Start Date Coverage End Date [employer] [facility] [address] [place] [address] [id number] Marie Engel Self - patient is the insured 4 4 Medical (General) History Medical History History ICD Code Insomnia Esophageal reflux oropharyngeal dyspnea Gastritis migraine dyslipidemia hypothyroidism osteoporosis anxiety essential hypertension Surgical History Surgery Date(Month/Year) shoulder surgery c section x2 hysterectomy nasal surgery carpal tunnel leg surgery left x2 NECK SURGERY
--- OUTSIDE RECORDS SUMMARY | 2025-01-08 16:57 | XMS_ITS | Clinical Summary ---
Author Organization [facility] Address [address] [address] Phone Care Team Providers Care Switch Coupler Name Role Phone Addi Holland NP Primary [...] MEDICARE REPLACEMENT MEDICARE PART A & B [address] [place], [place] [address] MEDICARE REPLACEMENT MEDICARE PART A & B MEDICARE PART A & B Member Subscriber Plan / Payer (Ef fective 2023-Present) Name:Marie Mckenzie Member ID:[id number] Relation to Subscriber:Self Name:Marie Mckenzie Subscriber ID:[id number] Payer ID:[id number] Group ID:Not on file Type:Medicare Address: [employer] [facility] [address] [address] MEDICARE PART A & B [facility] MEDICARE REPLACEMENT [place] [id number] MEDICARE PART A & B Care Teams Switch Coupler Relationship Specialty Start Date End Date Addi Holland NP [address] [facility] [place] [address] PCP - General Nurse Practitioner 02/17/23 Additional Source Comments The information contained in this document represents components of the legal health record. It is not the complete legal health record.[facility]
== END 2025-01-08 14:55 | disposition home or self-care (01) ==
LOC: HO.HBS 14:54
PROVIDERS: PCP Nurse Practitioner Family; Visit Provider Physician Assistant Surgical
DX: E66.3 Overweight (principal); Z68.25 Body mass index [BMI] 25.0-25.9, adult; L98.7 Excessive and redundant skin and subcutaneous tissue; Z90.3 Acquired absence of stomach [part of]; Z98.84 Bariatric surgery status
CPT/HCPCS: 99213; G2211

== ENCOUNTER 2025-01-25 08:46 | Outpatient (REF) | payer OTHER, SELFPAY ==
--- OUTSIDE RECORDS SUMMARY | 2025-01-25 19:17 | XMS_ITS | Encounter Summary ---
Author Organization [facility] Address [address] [place] [address] Phone Care Team Providers Care Health And Wellness Advisor Name Role Phone Addi Holland NP Primary Care Provider + Encounter Details Date Type Department Care Team (Late st Contact Info) Description 03/08/2023 Procedure Pass [facility] Endoscopy Admitting Dept Virtual Department [address] [place] [address] Social History Tobacco Use Types Packs/Day Years [...] on filedocumented in this encounter Care Teams Health And Wellness Advisor Relationship Specialty Start Date End Date Addi Holland NP [address] [facility] [place] [address] PCP - General Nurse Practitioner 02/17/23 documented as of this encounter Additional Source Comments The information contained in this document represents components of the legal health record. It is not the complete legal health record.[facility]
--- OUTSIDE RECORDS SUMMARY | 2025-01-25 19:17 | XMS_ITS | Encounter Summary ---
Author Organization [facility] Address [address] [place] [address] Phone Care Team Providers Care Window Shade Cutter Name Role Phone Addi Holland NP Primary Care Provider + Encounter Details Date Type Department Care Team (Late st Contact Info) Description 03/01/2023 Procedure Pass [facility] Endoscopy Admitting Dept Virtual Department [address] [place] [address] Social History Tobacco Use Types Packs/Day Years [...] on filedocumented in this encounter Care Teams Window Shade Cutter Relationship Specialty Start Date End Date Addi Holland NP [address] [place] [address] PCP - General Nurse Practitioner 02/17/23 documented as of this encounter Additional Source Comments The information contained in this document represents components of the legal health record. It is not the complete legal health record.[facility]
--- OUTSIDE RECORDS SUMMARY | 2025-01-25 19:17 | XMS_ITS | Encounter Summary ---
Author Organization [facility] Address [address] [place] [address] Phone Care Team Providers Care Ledge Man Name Role Phone Addi Holland NP Primary Care Provider + Encounter Details Date Type Department Care Team (Late st Contact Info) Description 11/02/2023 Procedure Pass [facility] Endoscopy Admitting Dept Virtual Department [address] [place] [address] Social History Tobacco Use Types Packs/Day Years [...] on filedocumented in this encounter Care Teams Ledge Man Relationship Specialty Start Date End Date Addi Holland NP [address] [facility] [place] [address] PCP - General Nurse Practitioner 02/17/23 documented as of this encounter Additional Source Comments The information contained in this document represents components of the legal health record. It is not the complete legal health record.[facility]
--- OUTSIDE RECORDS SUMMARY | 2025-01-25 19:17 | XMS_ITS | Clinical Summary ---
Author Organization [facility] Address [address] [place] [address] Phone Care Team Providers Care Fabric Machine Operator Name Role Phone Addi Holland NP Primary [...] TUNNEL REL UPPER GASTROINTESTINAL ENDOSCOPY 08/18/2016 PROCEDURE: OK UPPER GI ENDOSCOPY PERFORMED; COMMENT: Erosive gastritis, [...] for your loved ones. For example, children's author or elderly care for an older adult? [...] Health Maintenance Due Date Last Done Comments Colorectal Cancer Screening: Colonoscopy 1950 DTaP,Tdap,and Td Vaccines (1 - Tdap) 08/19/1970 RSV Immunization Adult Patients (1 - Risk 50-74 years 1-dose series) 08/19/2001 Zoster Vaccines (3 of 3) 05/12/2019 03/17/2019, 03/0 07/2015 Breast Cancer Screening 06/27/2021 06/28/2019, 12/31 Hepatitis C Screening 03/15/2022 Medicare Annual Wellness [...] mmol/L LAB CHEMISTRY METHOD 09/29/2024 7:05 AM [facility] Potassium 4.3 3.5 - 5.5 mmol/L LAB CHEMISTRY METHOD 09/29/2024 7:05 AM [facility] Chloride 100 96 - 110 mmol/L LAB CHEMISTRY METHOD 09/29/2024 7:05 AM [facility] CO2 33(H) 21 - 32 mmol/L LAB CHEMISTRY METHOD 09/29/2024 7:05 AM [facility] Anion Gap 4 3 - 11 LAB CHEMISTRY METHOD 09/29/2024 7:05 AM [facility] Glucose 101(H) 70 - 100 mg/dL LAB CHEMISTRY METHOD 09/29/2024 7:05 AM [facility] BUN 17 5 - 25 mg/dL LAB CHEMISTRY METHOD 09/29/2024 7:05 AM [facility] Creatinine 0.76 0.50 - 1.10 mg/dL LAB CHEMISTRY METHOD 09/29/2024 7:05 AM [facility] eGFR 83 >=60 mL/min/1. 73m2 LAB CHEMISTRY METHOD 09/29/2024 7:05 AM [facility] Comment:Calculation based on the Chronic Kidney Disease Epidemiology Collaboration (CKD-EPI) equation refit without adjustment for race. BUN/Creatinine Ratio 22.4 LAB CHEMISTRY METHOD 09/29/2024 7:05 AM [facility] Calcium 9.2 8.5 - 10.5 mg/dL LAB CHEMISTRY METHOD 09/29/2024 7:05 AM [facility] Blood Venous blood specimen / Unknown Venipuncture / Unknown 09/29/2024 5:58 AM EDT 09/29/2024 6:12 AM EDT Katelyn VIDAL LAB BLOOD ORDERABLES Hoa l Result [facility] [address] [place] [address], [place] [phone] * (ABNORMAL) Lipid panel with reflex to [...] VIDAL LAB BLOOD ORDERABLES Hoa l Result [facility] [address] [place] [address], [place] [phone] * SCR MAMMO BI INCL CAD (06/28/2019 [...] EDT [facility] Diagnostic Imaging Department [address] [place] [address] Patient: EDUARDO ENGEL /Age/Sex: 1950 - 66 - F Unit#: [id number] Location/Status: SPDIMAM/REG CLI Mnemonic/Ordering Site: MAMDEXAAX/SPMAM Ordering Physician: LITA TORRES MD [facility] Dexa Axial Skeleton - 06/22/17729 [facility] Dexa Axial Skeleton INDICATION: POST MENOPAUSE [...] placing the patient at risk for fracture. [id number] A report detailing these results has been enclosed. Dictating Physician: BEN FREDERICK MD Electronically Signed by: BEN FREDERICK MD Dic Date/Time: 06/22/17 1359 Sign date/Time: 06/22/17 1356 Procedure Note Ben Frederick MD - 03/31/2022 [facility] Diagnostic Imaging Department [address] [place] [address] Patient: JONAH NAGYEDUARDO /Age/Sex: 1950 - 66 -F Unit#: [id number] Location/Status: SPDIMAM/REG CLI Mnemonic/Ordering Site: MAMDEXAAX/SPMAM Ordering Physician: LITA TORRES MD [facility] Dexa Axial Skeleton - 06/22/17729 [facility] Dexa Axial Skeleton INDICATION: POST MENOPAUSE Technique: Bone densitometry was performed utilizing dual energy x-ray absorptiometry (DEXA). The lumbar spine is evaluated in the AP projectionfrom L1 through L4. The proximal femora are evaluated in the AP projection bilaterally. There are no prior studies available for direct comparison at [facility]. Findings: AP spine: Bone mineral density: 0.983 gm/cm2 T-score: -1.5 Femoral total (mean, bilateral): Bone mineral density: 0.704 gm/cm2 T-score: -2.4 Left femoral neck: Bone mineral density: 0.618 gm/cm2 T-score: -3.0 IMPRESSION: Findings suggesting osteoporosis, placing the patient at risk forfracture. [id number] A report detailing these results has been enclosed. Dictating Physician: BEN FREDERICK MD Electronically Signed by: BEN FREDERICK MD Dic Date/Time: 06/22/17 1359 Sign date/Time: 06/22/17 1356 Lita Torres MD IMG BI PROCEDURES Final Resu lt from Last 3 Months or Most Recently Relevant to Health Maintenance Insurance [address] [place] [address] MEDICARE Member Subscriber Plan / Payer (Ef fective 2024-Present) Name:EDUARDO ABREU Relation to Subscriber:Self Name:Eduardo Engel Payer ID:[id number] Group ID:[id number] Type:Not on file Address: [address] [facility] [place] [address] Advance Directives * Full Code - Default [...] currently active code status orders. Care Teams Fabric Machine Operator Relationship Specialty Start Date End Date Addi Holland NP [address] [place], [place] PCP - General Family Medicine 03/04/21
--- OUTSIDE RECORDS SUMMARY | 2025-01-25 19:17 | XMS_ITS | Clinical Summary ---
Author Organization [facility] Address [address] [address] Phone Care Team Providers Care Flow Worker Name Role Phone Addi Holland NP [...] VACCINE (#1) 2024 COVID-19 VACCINE (1 - 2024-2 6 season) 2024 RSV VACCINE (1 - 1-dose [...] MEDICARE REPLACEMENT MEDICARE PART A & B [address] [place], [place] [address]O MEDICARE REPLACEMENT MEDICARE PART A & B MEDICARE PART A & B Member Subscriber Plan / Payer (Ef fective 2023-Present) Name:Marie Mckenzie Member ID:[id number] Relation to Subscriber:Self Name:Marie Mckenzie Subscriber ID:[id number] Payer ID:[id number] Group ID:Not on file Type:Medicare Address: [address] [facility] [address] [address] MEDICARE PART A & B [facility] [employer] MEDICARE REPLACEMENT [place] [id number] MEDICARE PART A & B Care Teams Flow Worker Relationship Specialty Start Date End Date Addi Holland NP [address] [facility] [place] [address] PCP - General Nurse Practitioner 02/17/23 Additional Source Comments The information contained in this document represents components of the legal health record. It is not the complete legal health record.[facility]
== END 2025-01-25 08:47 | disposition home or self-care (01) ==
LOC: HO.LNP 08:46
PROVIDERS: PCP Nurse Practitioner Family; Visit Provider Physician Assistant Surgical
DX: Z11.0 Encounter for screening for intestinal infectious diseases (principal)
CPT/HCPCS: 83013

== ENCOUNTER 2025-01-31 09:09 | Outpatient (AMB) | payer OTHER, SELFPAY ==
--- OUTSIDE RECORDS SUMMARY | 2024-01-28 06:15 | XMS_ITS ---
Author Organization [facility] Address [address] [place] [address] Care Team Providers Care Lotteries Agent Name Role Phone AUTUMN PADILLA Primary Care Provider [phone] REASON FOR VISIT Courtesy Visit Vital Signs Temperature 97.6 degrees Fahrenheit 01/28/20 24 Respiratory Rate 20 /min 01/28/2024 Height 5'2 in 01/28/2024 Weight 145 lbs 01/28/2024 BMI 26.52 kg/m2 01/28/2024 Oximetry 99 01/28/2024 Blood pressure systolic 120 01/28/20 24 Blood pressure diastolic 81 024 Encounters Encounter Location Date Provider Diagnosis [facility] [address] [place] [address] 01/28/2024 AUTUMN BEASLEY Plan Of Treatment No Information Progress Notes * Marie ENGELDO B:1950 (74 yo F)Acc No.[id number]:01/28/2024 Patient: Lawson janayshira Marie Nagy Provider: Lawson BEASLEY MD :1950 A ge:73 Y S ex:Female Date:01/28/2024 Phone: Address:[address] [place] [phone] Structured Data:Consent to r eceive voicemail/text messages? : YES Subjective: * Chief Complaints: * C ourtesy Visit Objective: * Vitals: I nitials: AM, BP sittin/81, RR:20/min, Oxygen sat %:99, Pulse sittin, Temp:97.6F, Wt:145lbs, Ht-in: 5'2 , BMI:26.52Index, Pain scale:01-10. Plan: * Procedure Codes: 3 074F SYST BP < 130 [id number] DIAST BP 80-89 MM HG Billing Information: * Procedure Codes: 3074F SYST BP < 130 mmHg. 3079F DIAST BP 80-89 MM HG. * Electronic signature of AUTUMN BEASLEY MD on 01/31/2025 at 10:05 AM EDT Sign off status: Pending * Provider: Lawson BEASLEY MD Date: Generated for Tom kenny/Dania/Simiitting on: 10:05 AM EDT
--- OUTSIDE RECORDS SUMMARY | 2024-02-28 05:15 | XMS_ITS ---
Author Organization [facility] Address [address] [place] [address] Care Team Providers Care Tellers Supervisor Name Role Phone AUTUMN PADILLA Primary Care Provider REASON FOR VISIT new patient Encounters Encounter Location Date Provider Diagnosis [facility] [address] [place] [address] 02/28/2024 AUTUMN BEASLEY Plan Of Treatment No Information Progress Notes * Marie BRASWELLDO B:1950 (74 yo F)Acc No.[id number]:02/28/2024 Patient: Lawson janayshira Yakov Marie Provider: Lawson BEASLEY MD :1950 A ge:73 Y S ex:Female Date:02/28/2024 Phone: Address:[address] [place], [place] [phone] Structured Data:Consent to r eceive voicemail/text messages? : YES Subjective: * Chief Complaints: * N ew patient * Electronic signature of AUTUMN BEASLEY MD on 01/31/2025 at 10:05 AM EDT Sign off status: Pending * Provider: Lawson BEASLEY MD Date: 04/29/2023 Generated for Printi ng/Faxing/eTransmitting on: 10:05 AM EDT
--- OUTSIDE RECORDS SUMMARY | 2024-02-28 05:15 | XMS_ITS ---
Author Organization [facility] Address [address] [place] [address] Care Team Providers Care Stripper Apprentice Name Role Phone AUTUMN PADILLA Primary Care Provider REASON FOR VISIT new patient, Please request prev medical records Encounters Encounter Location Date Provider Diagnosis [facility] [address] [place] [address] 02/28/2024 AUTUMN BEASLEY Plan Of Treatment No Information Progress Notes * Marie ENGELDO B:1950 (74 yo F)Acc No.[id number]:02/28/2024 Patient: Marie Sterling Provider: Laswon BEASLEY MD :1950 A ge:73 Y S ex:Female Date:02/28/2024 Phone: Address:[address] [place], [place] [phone] Structured Data:Consent to r eceive voicemail/text messages? : YES Subjective: * Chief Complaints: * N ew patientPlease request prev medical records Billing Information: * Procedure Codes: * Electronic signature of AUTUMN BEASLEY MD on 01/31/2025 at 10:04 AM EDT Sign off status: Pending * Provider: Lawson BEASLEY MD Date: 04/29/2023 Generated for Tom ng/Fakeanug/eTransmitting on: 10:04 AM EDT
--- OUTSIDE RECORDS SUMMARY | 2024-02-29 06:00 | XMS_ITS ---
Author Organization [facility] Address [address] [place] [address] Care Team Providers Care Manager Switch Name Role Phone AUTUMN PADILLA Primary Care Provider REASON FOR VISIT VET TECH Encounters Encounter Location Date Provider Diagnosis [facility] [address] [place] [address] 02/29/2024 AUTUMN BEASLEY Plan Of Treatment No Information Progress Notes * Marie ENGELDO B:1950 (74 yo F)Acc No.[id number]:02/29/2024 Patient: Lawson kapoor YakovMarie Provider: Lawson BEASLEY MD :1950 A ge:73 Y S ex:Female Date:02/29/2024 Phone: Address:[address] [place], [place] [phone] Structured Data:Consent to r eceive voicemail/text messages? : YES Subjective: * Chief Complaints: * N P * Electronic signature of AUTUMN BEASLEY MD on 01/31/2025 at 10:06 AM EDT Sign off status: Pending * Provider: Lawson BEASLEY MD Date: 04/30/2023 Generated for Printi ng/Faxing/eTransmitting on: 10:06 AM EDT
--- OUTSIDE RECORDS SUMMARY | 2024-03-24 04:45 | XMS_ITS ---
Author Organization [employer], [employer]. Address [address] [place] [address] Care Team Providers Care Manager Cargo Name Role Phone Macario Scott Primary Care Provider REASON FOR VISIT LABS VIP Medications Medication SIG (Take, Route, Fr equency, Duration) Notes Start Date End Date Status Multivitamin - 1 tablet Orally Once a day Active Social History Sex Assigned At : Social History Observation Description Sex Assigned At Female Encounters Encounter Location Date Provider Diagnosis [facility] [address] [address] 03/24/2024 Macario Scott Plan Of Treatment No Information Progress Notes * EDUARDO ABREUDOB:[birth year] (74 yo F)Acc No.[id number]:03/24/2024 Labs Patient: EDUARDO STORM Provider: Andrzej Scott MD :1950 A ge:73 Y S ex:Female Date:03/24/2024 Address:[address] [place], [place] [address] Subjective: * Chief Complaints: * 1 . LABS VIP. * Medical History: * Medications: T aking Multivitamin - Tablet 1 tablet Orally Once a day Objective: * Vitals: Assessment: Plan: * Treatment: * Images: * Electronic signature of Anoop Scott MD on 01/31/2025 at 10:04 AM EDT Sign off status: Pending * Provider: Andrzej Scott MD Date: 1 05/25/2023 Generated for Tom kenny/Dania/Ivette on: 1 10:04 AM EDT
--- OUTSIDE RECORDS SUMMARY | 2024-03-24 05:58 | XMS_ITS ---
Author Organization [facility] Address [address] [place] [address] Care Team Providers Care Property Claims Adjuster Name Role Phone Macario Scott Primary Care [...] Female Encounters Encounter Location Date Provider Diagnosis [address] [place] [address] 03/24/2024 Macario Scott Plan Of Treatment No Information Progress Notes * EDUARDO ABREUDOB:[birth year] (74 yo F)Acc No.[id number]:03/24/2024 EKG Patient: EDUARDO STORM Provider: Andrzej Scott MD :1950 A ge:73 Y S ex:Female Date:03/24/2024 Address:[address] [place] [address] Subjective: * Chief Complaints: * 1 . [...] of Anoop Scott MD on 01/31/2025 at 10:06 AM EDT Sign off status: Pending * Provider: Andrzej Scott MD Date: 05/25/2023 Generated for Tom kenny/Dania/Ivette on: 10:06 AM EDT
--- OUTSIDE RECORDS SUMMARY | 2024-03-31 05:45 | XMS_ITS ---
Author Organization [employer] [employer] Address [address] [place] [address] Care Team Providers Care Missile Control Pilot Name Role Phone Macario Scott Primary Care [...] Female Encounters Encounter Location Date Provider Diagnosis [facility] [address] [address] 03/31/2024 Macario Scott Plan Of Treatment No Information Progress Notes * EDUARDO ABREUDOB:[birth year] (74 yo F)Acc No.[id number]:03/31/2024 Progress Note Patient: EDUARDO STORM Provider: Andrzej Scott MD :1950 A ge:73 Y S ex:Female Date:03/31/2024 Address:[address] [place] [address] Subjective: * Chief Complaints: * 1 . [...] Date: 06/01/2023 Generated for Tom kenny/Dania/eTashishsmitting on: 10:06 AM EDT
--- OUTSIDE RECORDS SUMMARY | 2024-06-16 04:30 | XMS_ITS ---
Author Organization [facility] Address [address] [place] [address] Care Team Providers Care Flying Shear Operator Name Role Phone Macario Scott Primary Care Provider REASON FOR VISIT SPIROMETRY Social History Sex Assigned At : Social History Observation Description Sex Assigned At Female Encounters Encounter Location Date Provider Diagnosis [facility] [address] [address] 06/16/2024 Macario Scott Plan Of Treatment No Information Progress Notes * EDUARDO ABREUDOB:[birth year] (74 yo F)Acc No.[id number]:06/16/2024 Progress Note Patient: EDUARDO STORM Provider: Andrzej Scott MD :1950 A ge:73 Y S ex:Female Date:06/16/2024 Address:[address] [place] [address] Subjective: * Chief Complaints: * 1 . SPIROMETRY. * Medical History: Objective: * Vitals: Assessment: Plan: * Treatment: * Images: * Electronic signature of Anoop Scott MD on 01/31/2025 at 10:05 AM EDT Sign off status: Pending * Provider: Andrzej Scott MD Date: 0 06/16/2024 Generated for Tom kenny/Dania/Simiitting on: 10:05 AM EDT
--- OUTSIDE RECORDS SUMMARY | 2024-06-16 05:15 | XMS_ITS ---
Author Organization [facility] Address [address] [place] [address] Care Team Providers Care Floor Assembler Name Role Phone Macario Scott Primary Care Provider REASON FOR VISIT F/UP REFILL Social History Sex Assigned At : Social History Observation Description Sex Assigned At Female Encounters Encounter Location Date Provider Diagnosis [facility] [address] [address] 06/16/2024 Macario Scott Plan Of Treatment No Information Progress Notes * EDUARDO ABREUDOB:[birth year] (74 yo F)Acc No.[id number]:06/16/2024 Progress Note Patient: EDUARDO STORM Provider: Andrzej Scott MD :1950 A ge:73 Y S ex:Female Date:06/16/2024 Address:[address] [place] [address] Subjective: * Chief Complaints: * 1 . F/UP REFILL. * Medical History: Objective: * Vitals: Assessment: Plan: * Treatment: * Images: Care Plan Details* * Electronic signature of Anoop Scott MD on 01/31/2025 at 10:06 AM EDT Sign off status: Pending * Provider: Andrzej Scott MD Date: 0 06/16/2024 Generated for Tom kenny/Dania/eTransmitting on: 10:06 AM EDT
--- OUTSIDE RECORDS SUMMARY | 2024-09-25 04:45 | XMS_ITS ---
Author Organization [facility] Address [address] [place] [address] Care Team Providers Care Char Conveyor Tender Cellar Name Role Phone Macario Scott Primary Care Provider REASON FOR VISIT LABS Social History Sex Assigned At : Social History Observation Description Sex Assigned At Female Encounters Encounter Location Date Provider Diagnosis [facility] [address] [address] 09/25/2024 Macario Scott Plan Of Treatment No Information Progress Notes * EDUARDO ABREUDOB:[birth year] (74 yo F)Acc No.[id number]:09/25/2024 Progress Note Patient: EDUARDO STORM Provider: Andrzej Scott MD :1950 A ge:74 Y S ex:Female Date:09/25/2024 Address:[address] [place] [address] Subjective: * Chief Complaints: * 1 . LABS. * Medical History: Objective: * Vitals: Assessment: Plan: * Treatment: * Images: * Electronic signature of Anoop Scott MD on 01/31/2025 at 10:06 AM EDT Sign off status: Pending * Provider: Andrzej Scott MD Date: 0 09/25/2024 Generated for Tom kenny/Dania/Simiitting on: 10:06 AM EDT
--- OUTSIDE RECORDS SUMMARY | 2024-10-02 04:45 | XMS_ITS ---
Author Organization [facility] Address [address] [place] [address] Care Team Providers Care Battery Charger Conveyor Line Name Role Phone Macario Scott Primary Care Provider REASON FOR VISIT Lab Result Social History Sex Assigned At : Social History Observation Description Sex Assigned At Female Encounters Encounter Location Date Provider Diagnosis [facility] [address] [address] 10/02/2024 Macario Scott Plan Of Treatment No Information Progress Notes * EDUARDO ABREUDOB:[birth year] (74 yo F)Acc No.[id number]:10/02/2024 Progress Note Patient: EDUARDO STORM Provider: Andrzej Scott MD :1950 A ge:74 Y S ex:Female Date:10/02/2024 Address:[address] [place], [place] [id number] Subjective: * Chief Complaints: * 1 . Lab Result. * Medical History: Objective: * Vitals: Assessment: Plan: * Treatment: * Images: Care Plan Details* * Electronic signature of Anoop Scott MD on 01/31/2025 at 10:07 AM EDT Sign off status: Pending * Provider: Andrzej Scott MD Date: 0 10/02/2024 Generated for Tom kenny/Dania/eTashishsmitting on: 10:07 AM EDT
--- OUTSIDE RECORDS SUMMARY | 2025-01-31 10:04 | XMS_ITS | Encounter Summary ---
Author Organization [facility] Address [address] [place] [address] Phone Care Team Providers Care Switch Tender Name Role Phone Addi Holland NP Primary Care Provider + Encounter Details Date Type Department Care Team (Late st Contact Info) Description 11/02/2023 Procedure Pass [facility] Endoscopy Admitting Dept Virtual Department [address] [place] [address] Social History Tobacco Use Types Packs/Day Years [...] on filedocumented in this encounter Care Teams Switch Tender Relationship Specialty Start Date End Date Addi Holland NP [address] [place] [address] PCP - General Nurse Practitioner 02/17/23 documented as of this encounter Additional Source Comments The information contained in this document represents components of the legal health record. It is not the complete legal health record.[facility]
--- OUTSIDE RECORDS SUMMARY | 2025-01-31 10:05 | XMS_ITS | Patient Health Record ---
Author Organization [facility] Address [address] [place] [address] Care Team Providers Care Workgroup Leader Name Role Phone Macairo Scott Primary Care Provider Allergies Allergen (clinical drug ingredient) Drug/Non Drug Allergy documented on EMR Reaction Allergy Type Onset Date Status tramadol Tramadol rash Drug Allergy Active Results Component Value Reference Range Notes Cardiovascular Risk Assessme nt Reviewed date:04/06/2024 12:00:17 PM Interpretation: Performing Lab:[facility] [address] [id number], Phone - [phone], Director - Bree Notes/Report: Interpretation Note Supplemental report is available. PDF . Occult Blood, Fecal, IA-LAB BRENNON Reviewed date:05/04/2024 04:08:08 PM Interpretation: Performing Lab:[facility] [address] [id number], Phone - [phone], Director - Bree Notes/Report: Occult Blood, Fecal, IA Negative Negative Cardiovascular Risk Assessme nt Reviewed date:04/26/2024 08:51:11 AM Interpretation: Performing Lab:[facility] [address] [id number], Phone - [phone], Director - Bree Notes/Report: Interpretation Note Supplemental report is available. PDF . TSH reflex to T4 Reviewed date:04/26/2024 08:51:11 AM Interpretation: Performing Lab:[facility] [address] [id number], Phone - [phone], Director - Bree Notes/Report: TSH 3.730 0.450-4.500 uIU/mL Microalb/Creat Ratio, Timed Ur-LC Reviewed date:04/26/2024 08:51:11 AM Interpretation: Performing Lab:[facility] [place], [facility] [address] [place] [id number], Phone - [phone], Director - Bree Notes/Report: Ur.Collec. Interval 0 [...] Reviewed date:04/26/2024 08:51:11 AM Interpretation: Performing Lab:[facility] [place], [facility] [address] [place], [place] [id number], Phone - [phone], Director - Bree Notes/Report: WBC 5.5 3.4-10.8 [...] Immature Grans (Abs) 0.0 0.0-0.1 x10E3/uL Urinalysis, Slpspbhb-VY-G Reviewed date:04/26/2024 08:51:11 AM Interpretation: Performing Lab:[facility] [address] [place] [id number], Phone - [phone], Director - Bree Notes/Report: Specific [place] 1.016 1.005-1.030 pH 7.0 5.0-7.5 Urine-Color Yellow [...] 14+eGFR-LC-Q Reviewed date:04/26/2024 08:51:11 AM Interpretation: Performing Lab:[facility] [address] [place] [id number], Phone - [phone], Director - Bree Notes/Report: Glucose 94 70-99 [...] io-LC Reviewed date:04/26/2024 08:51:11 AM Interpretation: Performing Lab:[address] [id number], Phone - [phone], Director - MDFarrier Notes/Report: Cholesterol, Total 232 100-199 mg/dL Triglycerides 76 0-149 mg/dL HDL Cholesterol 71 >39 mg/dL VLDL Cholesterol Koby 13 5-40 mg/dL LDL Chol Calc ([facility]) 148 0-99 mg/dL LDL/HDL Ratio 2.1 0.0-3.2 ratio Avg.Risk 3.6 3.2 3X Avg.Risk 8.0 6.1 LDL/HDL Ratio 1/2 Avg.Risk 1.0 1.5 Men Women 2X Avg.Risk 6.2 5.0 EKG Electrocardiogram Reviewed date:03/24/2024 02:15:49 PM Interpretation: Performing Lab: Notes/Report: TSH reflex to T4 Reviewed date:03/31/2024 08:44:59 AM Interpretation: Performing Lab:[address] [id number], Phone - [phone], Director - MDFarrier Notes/Report: TSH 1.770 0.450-4.500 uIU/mL Occult Blood, Fecal, IA-LAB BR[place] Reviewed date:03/31/2024 08:45:03 AM Interpretation: Performing Lab:[address] [id number], Phone - [phone], Director - MDFarrier Notes/Report: Occult Blood, Fecal, IA Negative Negative Microalbumin/Creatinine Rati o, Random Urine-LC Reviewed date:03/31/2024 08:45:06 AM Interpretation: Performing Lab:[address] [id number], Phone - [phone], Director - MDFarrier Notes/Report: Creatinine, Urine 122.7 Not Estab. mg/dL Albumin, Urine 12.5 Not Estab. ug/mL Alb/Creat Ratio 10 0-29 mg/g creat Moderately increased: 30 - 300 Normal: 0 - 29 Severely increased: >300 CBC With Differential/Platel et-LC-Q Reviewed date:03/31/2024 08:45:13 AM Interpretation: Performing Lab:[address] [id number], Phone - [phone], Director - Bree Notes/Report: WBC 7.0 3.4-10.8 [...] Immature Grans (Abs) 0.0 0.0-0.1 x10E3/uL Urinalysis, Digwemkk-CA-V Reviewed date:03/31/2024 08:45:17 AM Interpretation: Performing Lab:[facility] [address] [place] [id number], Phone - [phone], Director - Bree Notes/Report: Specific [place] 1.020 1.005-1.030 pH 7.0 5.0-7.5 Urine-Color Yellow [...] 14+eGFR-LC-Q Reviewed date:03/31/2024 08:45:20 AM Interpretation: Performing Lab:[address] [id number], Phone - [phone], Director - Bree Notes/Report: Glucose 82 70-99 [...] Panel-Q-LC Reviewed date:03/31/2024 08:45:24 AM Interpretation: Performing [facility] [address] [place] [id number], Phone - [phone], Director - Bree Notes/Report: Cholesterol, Total 222 100-199 mg/dL Triglycerides 65 0-149 mg/dL HDL Cholesterol 76 >39 mg/dL VLDL Cholesterol Koby 11 5-40 mg/dL LDL Chol Calc ([facility]) 135 0-99 mg/dL Reason For Referral Reason If additional kathy ting is needed, please refer back to PCP. Please fax consult notes and/or results of procedure approved to [phone]. Thanks! ~Annual Eye Exam~ Diagnosis 1 Encounter for examin ation of eyes and vision without abnormal findings (Z01.00) [email or web address] Referring Provider First Name Macario Referring Provider Last Name Tyler Referring Provider Speciality General Pr actice Referred Provider [employer], [facility] Referred Provider Specialty Test Examiner Clinical Notes Curt Fernandez 12/12 02:56:13 PM >GAVE PT REFERRAL SAME DAY ON 03/24/2024 Referral Priority Routine Reason Please fax consul t notes and/or results of procedure approved to [phone]. Thanks! CONSULT ONLY - MANAGED CARE ~Annual Eye Exam~ Diagnosis 1 Encounter for examin ation of eyes and vision without abnormal findings (Z01.00) Referral Organization [email or web address] Referring Provider First Name Macario Referring Provider Last Name Tyler Referring Provider Speciality General June actice Referred Provider [employer] Referred Provider Specialty Test Examiner Referral Priority Routine Medications Medication SIG (Take, [...] W/U Status Risk Notes Problem Mixed hyperlipidemia (155792327) Mixed hyperlipidemia (E78.2) Active confirmed Problem Chronic kidney disease due to hypertension (127294241979659) Hypertensive chronic kidney disease with stage 1 through stage 4 chronic kidney disease, or unspecified chronic kidney disease (I12.9) Active confirmed Problem Fibromyalgia (397136514) Fibromyalgia (M79.7) Active confirmed Problem Chronic insomnia (248673398) Chronic insomnia (F51.04) Active confirmed Problem Vertigo (911891387) Vertigo (R42) Active confirmed Problem Acquired hypothyroidism (125196869) Acquired hypothyroidism (E03.9) Active confirmed Problem Migraine (72439492) Migraine syndrome (G43.909) Active confirmed Problem Chronic kidney disease stage 2 (919980887) CKD (chronic kidney disease), stage II (N18.2) Active confirmed GFR 75 as per lab results from 5 Problem Former smoker (4521601) Former smoker (Z87.891) Active confirmed Problem Moderate recurrent major depression (49399486) 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) Active confirmed Problem Uncomplicated severe persistent asthma (539206436) Severe persistent asthma without complication (J45.50) Active [...] N/A Encounters Encounter Location Date Provider Diagnosis [facility] [address] [facility] [address] [place] [address] 03/24/2024 Mac[facility] [address] [facility] [address] [place] [address] 03/24/2024 Macario [facility] [address] [facility] [address] [place] [address] 03/31/2024 [facility] [address] [facility] [address] [place] [address] 03/24/2024 Macario Scott Essential (primary) hypertension I10 [...] eyes and vision without abnormal findings Z01.00 [address] [address] [place] [address] 03/31/2024 Macariochrissy Johnsarez Hypertensive chronic kidney disease [...] of 25.0 to 25.9 in adult Z68.25 [facility] [address] [facility] [address] [place] [address] 04/24/2024 Macariochrissy Johnsarez Acquired hypothyroid ism E03.9 ; Encounter for general adult medical examination without abnormal findings Z00.00 ; Essential (primary) hypertension I10 and Mixed hyperlipidemia E78.2 [facility] [address] [address] 05/02/2024 Macario Scott Severe persistent asthma without [...] Order Date DEXA Hip and Spine 05/02/2024 DEXA Hip and Spine 03/24/2024 EKG Electrocardiogram 05/02/2024 SPIROMETRY 05/02/2024 Lipid Panel-Q-LC 05/02/2024 Comprehensive Metabolic Panel 14+eGFR-LC -Q 05/02/2024 Urinalysis, Pwynhoew-TS-Z 05/02/2024 CBC With Differential/Apmjricu-QN-G 04/13 Mammo SCREENING MAMMO DIGITAL, SOHEILA 05/02 Mammo SCREENING MAMMO DIGITAL, SOHEILA 03/24 CHEST X-RAY (PA/LATERAL) 03/24/2024 CHEST X-RAY (PA/LATERAL) 05/02/2024 Future Test Test Name Order Date Lipid Panel With LDL/HDL Ratio-LC 2024 Comprehensive Metabolic Panel 14+eGFR-LC -Q 09/25/2024 Urinalysis, Vyxmuopw-RC-B 09/25/2024 CBC With Differential/Ootbinny-TX-P 09/10 Insurance Providers Payer Name Payer Address Payer Phone Subscriber Number Group Number Insured Name Patient Relationship to Insured Coverage Start Date Coverage End Date [facility] [address] [address] [place] [address] [id number] [place], [place] Self - patient is the insured Medical (General) History Medical History History ICD Code hyperension asthma sinusitis migraines thyroid Surgical History Surgery Date(Month/Year) hystrectomy total 1996 1970,1971 right leg n/a nose n/a carpal tunel on both hands n/a
--- OUTSIDE RECORDS SUMMARY | 2025-01-31 10:05 | XMS_ITS | Encounter Summary ---
Author Organization [facility] Address [address] [place] [address] Phone Care Team Providers Care Job Checker Name Role Phone Addi Holland NP Primary Care Provider + Encounter Details Date Type Department Care Team (Late st Contact Info) Description 03/01/2023 Procedure Pass [facility] Endoscopy Admitting Dept Virtual Department [address] [place] [address] Social History Tobacco Use Types Packs/Day Years [...] on filedocumented in this encounter Care Teams Job Checker Relationship Specialty Start Date End Date Addi Holland NP [address] [facility] [place] [address] PCP - General Nurse Practitioner 02/17/23 documented as of this encounter Additional Source Comments The information contained in this document represents components of the legal health record. It is not the complete legal health record.[facility]
--- OUTSIDE RECORDS SUMMARY | 2025-01-31 10:05 | XMS_ITS | Clinical Summary ---
Author Organization [facility] Address [address] [place] [address] Phone Care Team Providers Care Conference Planning Manager Name Role Phone Addi Holland NP Primary Care Provider [phone] Allergies Active Allergy Reactions Criticality Noted Date [...] for your loved ones. For example, child psychometrist or elderly care for an older adult? [...] 09/29/2024 7:05 AM [facility] Potassium 4.3 3.5 - [...] VIDAL LAB BLOOD ORDERABLES Hoa l Result [facility] [address] [place] [address], [place] [phone] * (ABNORMAL) Lipid panel with reflex to direct LDL (09/27/2024 10:20 AM EDT) Cholesterol 234(H) 0 - 200 mg/dL LAB CHEMISTRY METHOD 09/27/2024 12:46 PM EDT [facility] Triglycerides 71 0 - 150 mg/dL LAB CHEMISTRY METHOD 09/27/2024 12:46 PM EDT [facility] HDL 79 >=40 mg/dL LAB CHEMISTRY METHOD 09/27/2024 12:46 PM EDT [facility] LDL Calculated 141(H) 0 - 100 mg/dL LAB CHEMISTRY METHOD 09/27/2024 12:46 PM EDT [facility] VLDL Cholesterol Koby 14.2 mg/dL LAB CHEMISTRY METHOD 09/27/2024 12:46 PM EDT [facility] Non HDL Chol. (LDL+VLDL) 155(H) <145 mg/dL LAB CHEMISTRY METHOD 09/27/2024 12:46 PM EDT [facility] Chol/HDL Ratio 3.0 0.0 - 4.4 LAB CHEMISTRY METHOD 09/27/2024 12:46 PM EDT [facility] Blood Venous blood specimen / Unknown Venipuncture / Unknown 09/27/2024 10:20 AM EDT 09/27/2024 10:25 AM EDT Katelyn VIDAL LAB BLOOD ORDERABLES Hoa l Result [facility] [address] [place] [address], [place] [phone] * SCR MAMMO BI INCL CAD (06/28/2019 [...] AM EDT Narrative 06/22/2017 1:56 PM EDT [facility] Diagnostic Imaging Department [address] [place] [address] Patient: EDUARDO ENGEL /Age/Sex: 1950 - 66 - F Unit#: [id number] Location/Status: SPDIMAM/REG CLI Mnemonic/Ordering Site: MAMDEXAAX/SPMAM Ordering Physician: LITA TORRES MD [facility] Dexa Axial Skeleton - 06/22/17729 [facility] Dexa Axial Skeleton INDICATION: POST MENOPAUSE [...] placing the patient at risk for fracture. [id number] A report detailing these results has been enclosed. Dictating Physician: BEN FREDERICK MD Electronically Signed by: BEN FREDERICK MD Dic Date/Time: 06/22/17 1353 Sign date/Time: 06/22/17 1356 Procedure Note Ben Frederick MD - 03/31/2022 [facility] Diagnostic Imaging Department [address] [place] [address] Patient: JONAH NAGYEDUARDO /Age/Sex: 1950 - 66 -F Unit#: [id number] Location/Status: SPDIMAM/REG CLI Mnemonic/Ordering Site: MAMDEXAAX/SPMAM Ordering Physician: LITA TORRES MD [facility] Dexa Axial Skeleton - 06/22/17729 [facility] Dexa Axial Skeleton INDICATION: POST MENOPAUSE Technique: Bone densitometry was performed utilizing dual energy x-ray absorptiometry (DEXA). The lumbar spine is evaluated in the AP projectionfrom L1 through L4. The proximal femora are evaluated in the AP projection bilaterally. There are no prior studies available for direct comparison at [facility]. Findings: AP spine: Bone mineral density: 0.983 gm/cm2 T-score: -1.5 Femoral total (mean, bilateral): Bone mineral density: 0.704 gm/cm2 T-score: -2.4 Left femoral neck: Bone mineral density: 0.618 gm/cm2 T-score: -3.0 IMPRESSION: Findings suggesting osteoporosis, placing the patient at risk forfracture. [address] A report detailing these results has been enclosed. Dictating Physician: BEN FREDERICK MD Electronically Signed by: BEN FREDERICK MD Dic Date/Time: 06/22/17 1357 Sign date/Time: 06/22/17 1356 Lita Torres MD IMG BI PROCEDURES Final Resu lt from Last 3 Months or Most Recently Relevant to Health Maintenance Insurance [address] [place] [address] MEDICARE Member Subscriber Plan / Payer (Ef fective 2024-Present) Name:EDUARDO ABREU Relation to Subscriber:Self Name:Eduardo Engel Payer ID:[id number] Group ID:[id number] Type:Not on file Address: [address] [facility] [place] [address] Advance Directives * Full Code - Default [...] currently active code status orders. Care Teams Conference Planning Manager Relationship Specialty Start Date End Date Addi Holland NP [address] [place], [place] PCP - General Family Medicine 03/04/21
--- OUTSIDE RECORDS SUMMARY | 2025-01-31 10:05 | XMS_ITS | Encounter Summary ---
Author Organization [facility] Address [address] [place] [address] Phone Care Team Providers Care Engineering Project Manager Name Role Phone Addi Holland NP Primary Care Provider + Encounter Details Date Type Department Care Team (Late st Contact Info) Description 03/08/2023 Procedure Pass [facility] Endoscopy Admitting Dept Virtual Department [address] [place] [address] Social History Tobacco Use Types Packs/Day Years [...] on filedocumented in this encounter Care Teams Engineering Project Manager Relationship Specialty Start Date End Date Addi Holland NP [address] [facility] [address] PCP - General Nurse Practitioner 02/17/23 documented as of this encounter Additional Source Comments The information contained in this document represents components of the legal health record. It is not the complete legal health record.[facility]
--- OUTSIDE RECORDS SUMMARY | 2025-01-31 10:06 | XMS_ITS | Patient Health Record ---
Author Organization [facility] Address [address] [place] [address] Care Team Providers Care Plastic Frame Inserter Name Role Phone AUTUMN PADILLA Primary Care Provider [phone] Allergies Allergen (clinical drug ingredient) Drug/Non Drug [...] 90 days Active Vitamin A 3 MG (77367 UT) Capsule 1 capsule with food or [...] W/U Status Risk Notes Problem Opioid abuse (8544428) Opioid abuse, uncomplicated (F11.10) Active confirmed Acetaminophen -codeine 300 mg 1 tab since 11/2023 Consult notes 02/29/2024 Medical Record page 05/26 Problem Severe major depression, single episode, without psychotic features (47500824) Major depressive disorder, single episode, 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) Active confirmed PHQ-9 score 20 Severe Depression Problem Insomnia (085995996) Insomnia (G47.00) Active confirmed Problem Osteoporosis (44707219) Osteoporosis (M81.0) Active confirmed Problem Moderate recurrent major depression (96613066) 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 Active confirmed PHQ-9 score 20 Severe Depression Date 02/29/2024 [facility] page 5 the patient has Moderate recurrent major depression Problem Gastroesophageal reflux disease (838826200) GERD (K21.9) Active confirmed Vital Signs Temperature 97.4 degrees Fahrenheit 02/29/2024 Respiratory Rate 19 /min 02/29/2024 Blood pressure diastolic 89 02/29/2024 Oximetry 99 02/29/2024 Height 62 in 02/29/2024 Blood pressure systolic 130 02/29/2024 Weight 143 lbs 02/29/2024 BMI 26.15 kg/m2 02/29/2024 Encounters Encounter Location Date Provider Diagnosis [facility] [address] [place] [address] 02/29/2024 AUTUMN BEASLEY Encounter for general adult [...] possible duration of sleep aides, and discussed roasterman side effects of these. 02/29/2024 Osteoporosis (ICD-10 [...] Order Date CBC with Differential & Platelets (56288 9) [facility] 02/29/2024 TSH & Free T4 (630529) [facility] UA Urinalysis with Reflex to Culture (37 3788) [facility] 02/29/2024 CMP Comp. Metabolic Panel (14) (258638) [facility] 02/29/2024 Lipid Panel (908691) [facility] 02/29/2024 Hemoglobin A1c 02/29/2024 Insurance Providers Payer Name Payer Address Payer Phone Subscriber Number Group Number Insured Name Patient Relationship to Insured Coverage Start Date Coverage End Date [facility] [address] [place] [address] [id number] Marie Engel Self - patient is the insured 4 4 Medical (General) History Medical History History ICD Code Insomnia Esophageal reflux oropharyngeal dyspnea Gastritis migraine dyslipidemia hypothyroidism osteoporosis anxiety essential hypertension Surgical History Surgery Date(Month/Year) shoulder surgery c section x2 hysterectomy nasal surgery carpal tunnel leg surgery left x2 NECK SURGERY
--- OUTSIDE RECORDS SUMMARY | 2025-01-31 10:07 | XMS_ITS | Clinical Summary ---
Author Organization [facility] Address [address] [address] Phone Care Team Providers Care Wire Winder Name Role Phone Addi Holland NP Primary [...] MEDICARE REPLACEMENT MEDICARE PART A & B [address] [place], [place] [id number] MEDICARE REPLACEMENT MEDICARE PART A & B MEDICARE PART A & B Member Subscriber Plan / Payer (Ef fective 2023-Present) Name:Marie Mckenzie Member ID:[id number] Relation to Subscriber:Self Name:Marie Mckenzie Subscriber ID:[id number] Payer ID:[id number] Group ID:Not on file Type:Medicare Address: [employer] [facility] [address] [address] MEDICARE PART A & B [facility] MEDICARE REPLACEMENT [place] [id number] MEDICARE PART A & B Care Teams Wire Winder Relationship Specialty Start Date End Date Addi Holland NP [address] [place] [address] PCP - General Nurse Practitioner 02/17/23 Additional Source Comments The information contained in this document represents components of the legal health record. It is not the complete legal health record.[facility]
--- NOTE | 2025-01-31 13:40 | MHC.OFFVISWM ---
VS Expanded 01/31/25 13:41 Height 5 ft 2 in Weight 141 lb BMI 25.8 Intake Visit Reasons: TV Pre Op Panni + Brachioplasty 02/20/25 Allergies tramadol Allergy (Severe, Verified 01/31/25 13:40) Itching Medication List - Last Reconciled 01/31/25 by Shaggy Alberto MD atenolol 50 mg PO DAILY Held on 06/18/23. Instructions: Resume on 06/19/23. Check your blood pressure every morning as soon as you wake up and send it to Dr. Alberto. Do no take the blood pressure medication if the blood pressure is below 120/70. Wait every day to hear back from Dr. Alberto before you take the medication. [id number]-msrkrgueofggn-mnga 50-300-40 mg (Fioricet) 2 caps PO Q8H PRN cephalexin 500 mg PO Q12H [chair lift daily use NS] clotrimazole 1% 1 appl topical BID cyclobenzaprine 5 mg PO BEDTIME PRN docusate sodium (Colace) 100 mg PO DAILY hospital bed daily miscellaneous medical supply daily use, ECO-Patch Reusable self adhesive electrodes for TENS FES/NMES ondansetron 4 mg PO Q8H PRN ondansetron HCl 4 mg PO Q12H rizatriptan take 1 tab at onset of headache; if no relief may repeat 1 tab after at least 2 hrs; max = 3 tabs/24 hr PO trazodone 150 mg PO BEDTIME HPI HPI TV Pre Op Panni + Brachioplasty 02/20/25: Details: Start time: 1.20pm, End time: 1.50pm ?I spent 25 minutes speaking with the patient on the phone plus an additional 5 minutes reviewing and updating records for a total of 30 minutes HPI Comments Details: Overall weight loss: Is doing 2 Premier shakes (4oz of Premier with 4oz almond milk), 1 Pure protein bar, and one meal (4 forks of meat and 4 forks of salad) Exercise: walking [facility] Medical History Insomnia PONV (postoperative nausea and vomiting) GERD (gastroesophageal reflux disease) Oropharyngeal dysphagia Gastritis Migraines Dyslipidemia Hypothyroidism Osteoporosis Anxiety Essential hypertension Surgical History History of shoulder surgery History of section History of nasal surgery History of surgery History of carpal tunnel surgery History of neck surgery Family History Father Cancer of prostate Mother HTN (hypertension) Maternal Grandmother Stroke Asthma Brother Substance use disorder Social History Household Members: Spouse Caregiver staying overnight: No Housing: Apartment 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 (, he also has a ANESTHESIOLOGY PHYSICIAN ASSISTANT) Do you presently have 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 or other home services: No 75 years or older and lives alone: No Alcohol intake: never Patient Tobacco Use Status: Former Tobacco user Tobacco use type: Cigarette e-Cigarette/Vaping Use: Never Used Second Hand Smoke Exposure: No service: No Current occupational status: retired Cognitive needs: No Hearing needs: No Vision needs: No Physical Exam Vital Signs: BMI result Body Mass Index 25.8 Telehealth Telehealth Telehealth Platform: Telephone Location of provider rendering services: practice address Location of patient: address on file Patient Identification confirmed using: Name, : Yes Telehealth method: voice only Patient verbally consented to treatment: Yes Patient verbally consented to billing insurance company: Yes Patient informed of any privacy concerns related to visit: Yes Minutes spent on Phone/Video with Pt.: 30 Assessment & Plan Assessment & Plan (1) Excess skin: Code(s): L98.7 - Excessive and redundant skin and subcutaneous tissue Category: Medical Plan: 1. Plan for bilateral brachioplasty and panniculectomy. Risks of infection, bleeding, asymmetry, wound dehiscence and blood clots were discussed with the patient. 2. You will have a drain the abdomen that may stay a few weeks before it may be removed 3. You will need to be doing sponge baths the first 1-2 weeks. No showers. You need to have help at home to get you up and limit your activities as much as possible for at least the 4-6 weeks after surgery 4. We will arrange for a 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 to come at home to help you with dressing changes and send me pictures of the procedures. We will send at your home supplies for the dressing changes. 5. Continue same nutritional plan of 2 Premier shakes (4oz of Premier with 4oz almond milk), 1 Pure protein bar, and one meal (4 forks of meat and 4 forks of salad). This will improve weight loss and healing after surgery. 6. Continue all vitamins 7. Stop Cyclobezaprine as of tomorrow 02/01/2025. 8. Do blood work not fasting any day between Wednesday02/05/25 and Wednesday02/09/2025 and pickle processor the antibiotic prescription from your pharmacy 9. Risks and complications were discussed the possibility of bleeding that may require transfusion, loss of the umbilicus, wound dehiscence or infection, dog ears , flap asymmetry. We also discussed the importance of strict avoidance of weight lifting. 10. Avoid aspirin, motrin, ibuprofen, Aleve, Advil, Naproxyn. Only Tylenol is OK Orders: Orders Comprehensive Met. Panel Today Z01.818 - Encounter for other preprocedural examination Complete Blood Count Auto Diff Today Z01.818 - Encounter for other preprocedural examination Partial Thromboplastin Time Today Z01.818 - Encounter for other preprocedural examination Type and Screen Today Z01.818 - Encounter for other preprocedural examination Prothrombin Time INR Today Z01.818 - Encounter for other preprocedural examination Medications: New docusate sodium (Colace) 100 mg PO DAILY 90 caps 0RF K59.00 - Constipation, unspecified cephalexin 500 mg PO Q12H 60 caps 2RF M79.3 - Panniculitis, unspecified ondansetron HCl Only take one every 12 hours as needed if you have nausea 4 mg PO Q12H 20 tabs 0RF nausea and vomiting R11.0 - Nausea
[2025-01-31 13:41] VITALS: BMI 25.8
== END 2025-01-31 14:30 | disposition home or self-care (01) ==
LOC: HO.HBS 09:09
PROVIDERS: Visit Provider Surgery
DX: L98.7 Excessive and redundant skin and subcutaneous tissue (principal); E66.3 Overweight; Z68.25 Body mass index [BMI] 25.0-25.9, adult
CPT/HCPCS: 99214

== ENCOUNTER 2025-02-20 05:45 | Day surgery (SDC) | payer OTHER, SELFPAY ==
--- OUTSIDE RECORDS SUMMARY | 2024-01-28 06:15 | XMS_ITS ---
Author Organization [facility] Address [address] [place] [address] Care Team Providers Care Tunneller Name Role Phone AUTUMN PADILLA Primary Care Provider [phone] REASON FOR VISIT Courtesy Visit Vital Signs Temperature 97.6 degrees Fahrenheit 01/28/20 24 Respiratory Rate 20 /min 01/28/2024 Height 5'2 in 01/28/2024 Weight 145 lbs 01/28/2024 BMI 26.52 kg/m2 01/28/2024 Oximetry 99 01/28/2024 Blood pressure systolic 120 01/28/20 24 Blood pressure diastolic 81 024 Encounters Encounter Location Date Provider Diagnosis [facility] [address] [place] [address] 01/28/2024 AUTUMN BEASLEY Plan Of Treatment No Information Progress Notes * LOIS NAGY MarieDO B:1950 (74 yo F)Acc No.[id number]:01/28/2024 Patient: Lawson janayshira Marie Nagy Provider: Lawson BEASLEY MD :1950 A ge:73 Y S ex:Female Date:01/28/2024 Phone: Address:[address] [place] [phone] Structured Data:Consent to r eceive voicemail/text messages? : YES Subjective: * Chief Complaints: * C ourtesy Visit Objective: * Vitals: I nitials: AM, BP sittin/81, RR:20/min, Oxygen sat %:99, Pulse sittin, Temp:97.6F, Wt:145lbs, Ht-in: 5'2 , BMI:26.52Index, Pain scale:01-10. Plan: * Procedure Codes: 3 074F SYST BP < 130 [id number] DIAST BP 80-89 MM HG Billing Information: * Procedure Codes: 3074F SYST BP < 130 mmHg. 3079F DIAST BP 80-89 MM HG. * Electronic signature of AUTUMN BEASLEY MD on 02/08/2025 at 07:52 AM EDT Sign off status: Pending * Provider: Lawson BEASLEY MD Date: Generated for Tom kenny/Dania/Simiitting on: 07:52 AM EDT
--- OUTSIDE RECORDS SUMMARY | 2024-02-28 05:15 | XMS_ITS ---
Author Organization [facility] Address [address] [place] [address] Care Team Providers Care Test Engineering Technician Name Role Phone AUTUMN PADILLA Primary Care Provider [phone] REASON FOR VISIT new patient, Please request prev medical records Encounters Encounter Location Date Provider Diagnosis [facility] [address] [place] [address] 02/28/2024 AUTUMN BEASLEY Plan Of Treatment No Information Progress Notes * Marie ENGELDO B:1950 (74 yo F)Acc No.[id number]:02/28/2024 Patient: Marie Sterling Provider: Lawson BEASLEY MD :1950 A ge:73 Y S ex:Female Date:02/28/2024 Phone: Address:[address] [place], [place] [phone] Structured Data:Consent to r eceive voicemail/text messages? : YES Subjective: * Chief Complaints: * N ew patientPlease request prev medical records Billing Information: * Procedure Codes: * Electronic signature of AUTUMN BEASLEY MD on 02/08/2025 at 07:51 AM EDT Sign off status: Pending * Provider: Lawson BEASLEY MD Date: 04/29/2023 Generated for Deborahi ng/Fakeanug/eTransmitting on: 07:51 AM EDT
--- OUTSIDE RECORDS SUMMARY | 2024-02-28 05:15 | XMS_ITS ---
Author Organization [facility] Address [address] [place] [address] Care Team Providers Care Profile Stitching Machine Operator Name Role Phone AUTUMN PADILLA Primary Care Provider [phone] REASON FOR VISIT new patient Encounters Encounter Location Date Provider Diagnosis [facility] [address] [place] [address] 02/28/2024 AUTUMN BEASLEY Plan Of Treatment No Information Progress Notes * Marie BRASWELLDO B:1950 (74 yo F)Acc No.[id number]:02/28/2024 Patient: Lawson janayshira Yakov Marie Provider: Lawson BEASLEY MD :1950 A ge:73 Y S ex:Female Date:02/28/2024 Phone: Address:[address] [place], [place] [phone] Structured Data:Consent to r eceive voicemail/text messages? : YES Subjective: * Chief Complaints: * N ew patient * Electronic signature of AUTUMN BEASLEY MD on 02/08/2025 at 07:51 AM EDT Sign off status: Pending * Provider: Lawson BEASLEY MD Date: 04/29/2023 Generated for Printi ng/Faxing/eTransmitting on: 07:51 AM EDT
--- OUTSIDE RECORDS SUMMARY | 2024-02-29 06:00 | XMS_ITS ---
Author Organization [facility] Address [address] [place] [address] Care Team Providers Care Woolen Suiting Shrinker Name Role Phone AUTUMN PADILLA Primary Care Provider REASON FOR VISIT FREEZER MACHINE OPERATOR Encounters Encounter Location Date Provider Diagnosis [facility] [address] [place] [address] 02/29/2024 AUTUMN BEASLEY Plan Of Treatment No Information Progress Notes * Marie ENGELDO B:1950 (74 yo F)Acc No.[id number]:02/29/2024 Patient: Lawson kapoor YakovMarie Provider: Lawson BEASLEY MD :1950 A ge:73 Y S ex:Female Date:02/29/2024 Phone: Address:[address] [place], [place] [phone] Structured Data:Consent to r eceive voicemail/text messages? : YES Subjective: * Chief Complaints: * N P * Electronic signature of AUTUMN BEASLEY MD on 02/08/2025 at 07:52 AM EDT Sign off status: Pending * Provider: Lawson BEASLEY MD Date: 04/30/2023 Generated for Printi ng/Faxing/eTransmitting on: 07:52 AM EDT
--- OUTSIDE RECORDS SUMMARY | 2024-03-24 04:45 | XMS_ITS ---
Author Organization [email or web address] Address [address] [place] [address] Care Team Providers Care Cold Rolling Machine Setter Name Role Phone Macario Scott Primary Care Provider REASON FOR VISIT LABS VIP Medications Medication SIG (Take, Route, Fr equency, Duration) Notes Start Date End Date Status Multivitamin - 1 tablet Orally Once a day Active Social History Sex Assigned At : Social History Observation Description Sex Assigned At Female Encounters Encounter Location Date Provider Diagnosis [facility] [address] [address] 03/24/2024 Macario Scott Plan Of Treatment No Information Progress Notes * EDUARDO ABREUDOB:[birth year] (74 yo F)Acc No.[id number]:03/24/2024 Labs Patient: EDUARDO STORM Provider: Andrzej Scott MD :1950 A ge:73 Y S ex:Female Date:03/24/2024 Address:[address] [place], [place] [address] Subjective: * Chief Complaints: * 1 . LABS VIP. * Medical History: * Medications: T aking Multivitamin - Tablet 1 tablet Orally Once a day Objective: * Vitals: Assessment: Plan: * Treatment: * Images: * Electronic signature of Anoop Scott MD on 02/08/2025 at 07:51 AM EDT Sign off status: Pending * Provider: Andrzej Scott MD Date: 1 05/25/2023 Generated for Tom kenny/Dania/Ivette on: 1 07:51 AM EDT
--- OUTSIDE RECORDS SUMMARY | 2024-03-24 05:58 | XMS_ITS ---
Author Organization [facility] Address [address] [place] [address] Care Team Providers Care Property Master Name Role Phone Macario Scott Primary Care Provider [phone] REASON FOR VISIT VIP Medications Medication SIG [...] Female Encounters Encounter Location Date Provider Diagnosis [address] [place] [address] 03/24/2024 Macario Scott Plan Of Treatment No Information Progress Notes * EDUARDO ABREUDOB:[birth year] (74 yo F)Acc No.[id number]:03/24/2024 EKG Patient: EDUARDO STORM Provider: Andrzej Scott MD :1950 A ge:73 Y S ex:Female Date:03/24/2024 Address:[address] [place] [address] Subjective: * Chief Complaints: * 1 . [...] of Anoop Scott MD on 02/08/2025 at 07:52 AM EDT Sign off status: Pending * Provider: Andrzej Scott MD Date: 05/25/2023 Generated for Tom kenny/Dania/Ivette on: 07:52 AM EDT
--- OUTSIDE RECORDS SUMMARY | 2024-03-31 05:45 | XMS_ITS ---
Author Organization [employer] Address [address] [place] [address] Care Team Providers Care School Health Aide Name Role Phone Macario Scott Primary Care Provider [phone] REASON FOR VISIT SPIROMETRY VIP Medications Medication [...] Female Encounters Encounter Location Date Provider Diagnosis [email or web address] [address] [address] 03/31/2024 Macario Scott Plan Of Treatment No Information Progress Notes * EDUARDO ABREUDOB:[birth year] (74 yo F)Acc No.[id number]:03/31/2024 Progress Note Patient: EDUARDO STORM Provider: Andrzej Scott MD :1950 A ge:73 Y S ex:Female Date:03/31/2024 Address:[address] [place] [address] Subjective: * Chief Complaints: * 1 . [...] Scott MD Date: 06/01/2023 Generated for Tom kenny/Dania/eTashishsmitting on: 07:52 AM EDT
--- OUTSIDE RECORDS SUMMARY | 2024-06-16 04:30 | XMS_ITS ---
Author Organization [facility] Address [address] [place] [address] Care Team Providers Care Application Consultant Name Role Phone Macario Scott Primary Care Provider REASON FOR VISIT SPIROMETRY Social History Sex Assigned At : Social History Observation Description Sex Assigned At Female Encounters Encounter Location Date Provider Diagnosis [facility] [address] [address] 06/16/2024 Macario Scott Plan Of Treatment No Information Progress Notes * EDUARDO ABREUDOB:[birth year] (74 yo F)Acc No.[id number]:06/16/2024 Progress Note Patient: EDUARDO STORM Provider: Andrzej Scott MD :1950 A ge:73 Y S ex:Female Date:06/16/2024 Address:[address] [place] [address] Subjective: * Chief Complaints: * 1 . SPIROMETRY. * Medical History: Objective: * Vitals: Assessment: Plan: * Treatment: * Images: * Electronic signature of Anoop Scott MD on 02/08/2025 at 07:52 AM EDT Sign off status: Pending * Provider: Andrzej Scott MD Date: 0 06/16/2024 Generated for Tom kenny/Dania/Simiitting on: 07:52 AM EDT
--- OUTSIDE RECORDS SUMMARY | 2024-06-16 05:15 | XMS_ITS ---
Author Organization [facility] Address [address] [place] [address] Care Team Providers Care Soap Grinder Name Role Phone Macario Scott Primary Care Provider [phone] REASON FOR VISIT F/UP REFILL Social History Sex Assigned At : Social History Observation Description Sex Assigned At Female Encounters Encounter Location Date Provider Diagnosis [facility] [address] [address] 06/16/2024 Macario Scott Plan Of Treatment No Information Progress Notes * EDURADO ABREUDOB:[birth year] (74 yo F)Acc No.[id number]:06/16/2024 Progress Note Patient: EDUARDO STORM Provider: Andrzej Scott MD :1950 A ge:73 Y S ex:Female Date:06/16/2024 Address:[address] [place] [address] Subjective: * Chief Complaints: * 1 . F/UP REFILL. * Medical History: Objective: * Vitals: Assessment: Plan: * Treatment: * Images: Care Plan Details* * Electronic signature of Anoop Scott MD on 02/08/2025 at 07:52 AM EDT Sign off status: Pending * Provider: Andrzej Scott MD Date: 0 06/16/2024 Generated for Tom kenny/Dania/eTransmitting on: 07:52 AM EDT
--- OUTSIDE RECORDS SUMMARY | 2024-09-25 04:45 | XMS_ITS ---
Author Organization [employer] [facility] Address [address] [place] [address] Care Team Providers Care Community Relations Liaison Name Role Phone Macario Scott Primary Care Provider REASON FOR VISIT LABS Social History Sex Assigned At : Social History Observation Description Sex Assigned At Female Encounters Encounter Location Date Provider Diagnosis [facility] [address] [address] 09/25/2024 Macario Scott Plan Of Treatment No Information Progress Notes * EDUARDO ABREUDOB:[birth year] (74 yo F)Acc No.[id number]:09/25/2024 Progress Note Patient: EDUARDO STORM Provider: Andrzej Scott MD :1950 A ge:74 Y S ex:Female Date:09/25/2024 Address:[address] [place] [address] Subjective: * Chief Complaints: * 1 . LABS. * Medical History: Objective: * Vitals: Assessment: Plan: * Treatment: * Images: * Electronic signature of Anoop Scott MD on 02/08/2025 at 07:53 AM EDT Sign off status: Pending * Provider: Andrzej Scott MD Date: 0 09/25/2024 Generated for Tom kenny/Dania/Simiitting on: 07:53 AM EDT
--- OUTSIDE RECORDS SUMMARY | 2024-10-02 04:45 | XMS_ITS ---
Author Organization [facility] Address [address] [place] [address] Care Team Providers Care Side Gluer Name Role Phone Macario Scott Primary Care Provider REASON FOR VISIT Lab Result Social History Sex Assigned At : Social History Observation Description Sex Assigned At Female Encounters Encounter Location Date Provider Diagnosis [facility] [address] [address] 10/02/2024 Macario Scott Plan Of Treatment No Information Progress Notes * EDUARDO ABREUDOB:[birth year] (74 yo F)Acc No.[id number]:10/02/2024 Progress Note Patient: EDUARDO STORM Provider: Andrzej Scott MD :1950 A ge:74 Y S ex:Female Date:10/02/2024 Address:[address] [place], [place] [phone] Subjective: * Chief Complaints: * 1 . Lab Result. * Medical History: Objective: * Vitals: Assessment: Plan: * Treatment: * Images: Care Plan Details* * Electronic signature of Anoop Scott MD on 02/08/2025 at 07:53 AM EDT Sign off status: Pending * Provider: Andrzej Scott MD Date: 0 10/02/2024 Generated for Tom kenny/Dania/eTransmitting on: 07:53 AM EDT
[2025-02-07 13:21] VITALS: BMI 25.4
--- OUTSIDE RECORDS SUMMARY | 2025-02-08 07:51 | XMS_ITS | Encounter Summary ---
Author Organization [facility] Address [address] [place] [address] Phone Care Team Providers Care Blood Bank Laboratory Technologist Name Role Phone Addi Holland NP Primary Care Provider + Encounter Details Date Type Department Care Team (Late st Contact Info) Description 11/02/2023 Procedure Pass [facility] Endoscopy Admitting Dept Virtual Department [address] [place] [address] Social History Tobacco Use Types Packs/Day Years [...] on filedocumented in this encounter Care Teams Blood Bank Laboratory Technologist Relationship Specialty Start Date End Date Addi Holland NP [address] [facility] [place] [address] PCP - General Nurse Practitioner 02/17/23 documented as of this encounter Additional Source Comments The information contained in this document represents components of the legal health record. It is not the complete legal health record.[facility]
--- OUTSIDE RECORDS SUMMARY | 2025-02-08 07:52 | XMS_ITS | Encounter Summary ---
Author Organization [facility] Address [address] [place] [address] Phone Care Team Providers Care Filling Machine Set Up Mechanic Name Role Phone Addi Holland NP Primary Care Provider + Encounter Details Date Type Department Care Team (Late st Contact Info) Description 03/08/2023 Procedure Pass [facility] Endoscopy Admitting Dept Virtual Department [address] [place] [address] Social History Tobacco Use Types Packs/Day Years [...] on filedocumented in this encounter Care Teams Filling Machine Set Up Mechanic Relationship Specialty Start Date End Date Addi Holland NP [address] [place] [address] PCP - General Nurse Practitioner 02/17/23 documented as of this encounter Additional Source Comments The information contained in this document represents components of the legal health record. It is not the complete legal health record.[facility]
--- OUTSIDE RECORDS SUMMARY | 2025-02-08 07:52 | XMS_ITS | Encounter Summary ---
Author Organization [facility] Address [address] [place] [address] Phone Care Team Providers Care Medical Receptionist Name Role Phone Addi Holland NP Primary Care Provider + Encounter Details Date Type Department Care Team (Late st Contact Info) Description 03/01/2023 Procedure Pass [facility] Endoscopy Admitting Dept Virtual Department [address] [place] [address] Social History Tobacco Use Types Packs/Day Years [...] on filedocumented in this encounter Care Teams Medical Receptionist Relationship Specialty Start Date End Date Addi Holland NP [address] [facility] [place] [address] PCP - General Nurse Practitioner 02/17/23 documented as of this encounter Additional Source Comments The information contained in this document represents components of the legal health record. It is not the complete legal health record.[facility]
--- OUTSIDE RECORDS SUMMARY | 2025-02-08 07:52 | XMS_ITS | Patient Health Record ---
Author Organization [employer] Address [address] [place] [address] Care Team Providers Care Associate Editor Name Role Phone Macario Scott Primary Care Provider Allergies Allergen (clinical drug ingredient) Drug/Non Drug Allergy documented on EMR Reaction Allergy Type Onset Date Status tramadol Tramadol rash Drug Allergy Active Results Component Value Reference Range Notes TSH reflex to T4 Reviewed date:04/26/2024 08:51:11 AM Interpretation: Performing Lab:[facility] [address] [id number], Phone - [phone], Director - MDFarrier Notes/Report: TSH 3.730 0.450-4.500 uIU/mL Microalb/Creat Ratio, Timed Ur-LC Reviewed date:04/26/2024 08:51:11 AM Interpretation: Performing Lab:[facility] [address] [id number], Phone - [phone], Director - MDKostasrier Notes/Report: Ur.Collec. Interval 0 [...] et-LC-Q Reviewed date:04/26/2024 08:51:11 AM Interpretation: Performing Lab:[facility] [address] [id number], Phone - [phone], Director - Bree Notes/Report: WBC 5.5 3.4-10.8 [...] Immature Grans (Abs) 0.0 0.0-0.1 x10E3/uL Urinalysis, Ximzzsyv-JM-T Reviewed date:04/26/2024 08:51:11 AM Interpretation: Performing Lab:[facility], [address] [place] [id number], Phone - [phone], Director - Bree Notes/Report: Specific [place] 1.016 1.005-1.030 pH 7.0 5.0-7.5 Urine-Color Yellow [...] 14+eGFR-LC-Q Reviewed date:04/26/2024 08:51:11 AM Interpretation: [facility] [address] [place] [id number], Phone - [phone], Director - Bree Notes/Report: Glucose 94 70-99 [...] date:04/26/2024 08:51:11 AM Interpretation: Performing Lab:[facility], [address] [place] [id number], Phone - [phone], Director - Bree Notes/Report: Cholesterol, Total 232 [...] Reviewed date:03/31/2024 08:44:59 AM Interpretation: Performing Lab:[facility] [address] [place] [id number], Phone - [phone], Director - Bree Notes/Report: TSH 1.770 0.450-4.500 uIU/mL Occult Blood, Fecal, IA-[facility] Reviewed date:05/04/2024 04:08:08 PM Interpretation: Performing Lab:[facility] [address] [place] [id number], Phone - [phone], Director - Bree Notes/Report: Occult Blood, Fecal, IA Negative Negative Cardiovascular Risk Assessme nt Reviewed date:04/26/2024 08:51:11 AM Interpretation: Performing Lab:[facility] [address] [place] [id number], Phone - [phone], Director - Bree Notes/Report: Interpretation Note Supplemental report is available. PDF . Cardiovascular Risk Assessme nt Reviewed date:04/06/2024 12:00:17 PM Interpretation: Performing Lab:[facility], [address] [place] [id number], Phone - [phone], Director - Bree Notes/Report: Interpretation Note Supplemental report is available. PDF . Occult Blood, Fecal, IA-[facility] Reviewed date:03/31/2024 08:45:03 AM Interpretation: Performing Lab:[facility] [address] [id number], Phone - [phone], Director - Bree Notes/Report: Occult Blood, Fecal, IA Negative Negative Microalbumin/Creatinine Rati o, Random Urine-LC Reviewed date:03/31/2024 08:45:06 AM Interpretation: Performing Lab:[facility] [address] [id number], Phone - [phone], Director - Bree Notes/Report: Creatinine, Urine 122.7 Not Estab. mg/dL Albumin, Urine 12.5 Not Estab. ug/mL Alb/Creat Ratio 10 0-29 mg/g creat Normal: 0 - 29 Moderately increased: 30 - 300 Severely increased: >300 CBC With Differential/Platel et-LC-Q Reviewed date:03/31/2024 08:45:13 AM Interpretation: Performing Lab:[address] [id number], Phone - [phone], Director - Bree Notes/Report: WBC 7.0 3.4-10.8 [...] Immature Grans (Abs) 0.0 0.0-0.1 x10E3/uL Urinalysis, Sfrorcqq-KY-K Reviewed date:03/31/2024 08:45:17 AM Interpretation: Performing Lab:[facility] [address] [place] [id number], Phone - [phone], Director - Bree Notes/Report: Specific [place] 1.020 1.005-1.030 pH 7.0 5.0-7.5 Urine-Color Yellow [...] 14+eGFR-LC-Q Reviewed date:03/31/2024 08:45:20 AM Interpretation: Performing Lab:[facility] [id number], Phone - [phone], Director - Bree Notes/Report: Glucose 82 70-99 [...] Panel-Q-LC Reviewed date:03/31/2024 08:45:24 AM Interpretation: Performing [facility], [address] [place] [address] [id number], Phone - [phone], Director - Bree Notes/Report: Cholesterol, Total 222 100-199 mg/dL Triglycerides 65 0-149 mg/dL HDL Cholesterol 76 >39 mg/dL VLDL Cholesterol Koby 11 5-40 mg/dL LDL Chol Calc (NIH) 135 0-99 mg/dL Reason For Referral Reason If additional kathy ting is needed, please refer back to PCP. Please fax consult notes and/or results of procedure approved to [phone]. Thanks! ~Annual Eye Exam~ Diagnosis 1 Encounter for examin ation of eyes and vision without abnormal findings (Z01.00) [facility] Referring Provider First Name Macario Referring Provider Last Name Tyler Referring Provider Speciality General Pr actice Referred Provider [employer] Referred Provider Specialty Shipping/Receiving Manager Clinical Notes Curt Fernandez 12/12 02:56:13 PM >GAVE PT REFERRAL SAME DAY ON 03/24/2024 Referral Priority Routine Reason Please fax consul t notes and/or results of procedure approved to [phone]. Thanks! CONSULT ONLY - MANAGED CARE ~Annual Eye Exam~ Diagnosis 1 Encounter for examin ation of eyes and vision without abnormal findings (Z01.00) Ref[facility] Referring Provider First Name Macario Referring Provider Last Name Tyler Referring Provider Speciality General June actice Referred Provider [employer] Referred Provider Specialty Shipping/Receiving Manager Referral Priority Routine Medications Medication SIG [...] W/U Status Risk Notes Problem Mixed hyperlipidemia (672987649) Mixed hyperlipidemia (E78.2) Active confirmed Problem Chronic kidney disease due to hypertension (203379741071563) Hypertensive chronic kidney disease with stage 1 through stage 4 chronic kidney disease, or unspecified chronic kidney disease (I12.9) Active confirmed Problem Fibromyalgia (343646672) Fibromyalgia (M79.7) Active confirmed Problem Chronic insomnia (310032548) Chronic insomnia (F51.04) Active confirmed Problem Vertigo (431508320) Vertigo (R42) Active confirmed Problem Acquired hypothyroidism (116881256) Acquired hypothyroidism (E03.9) Active confirmed Problem Migraine (01574295) Migraine syndrome (G43.909) Active confirmed Problem Chronic kidney disease stage 2 (454681321) CKD (chronic kidney disease), stage II (N18.2) Active confirmed GFR 75 as per lab results from 5 Problem Former smoker (7881503) Former smoker (Z87.891) Active confirmed Problem Moderate recurrent major depression (05890092) 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) Active confirmed Problem Uncomplicated severe persistent asthma (158224880) Severe persistent asthma without complication (J45.50) Active [...] N/A Encounters Encounter Location Date Provider Diagnosis [facility] [address] [facility] [address] [place] [address] 03/24/2024 Macario [facility] [address] [facility] [address] [place] [address] 03/24/2024 Macario [facility] [address] [facility] [address] [place] [address] 03/31/2024 [facility] [address] [facility] [address] [place] [address] 03/24/2024 Macario Scott Essential (primary) hypertension I10 [...] eyes and vision without abnormal findings Z01.00 [address] [address] [place] [address] 03/31/2024 Macariochrissy Johnsarez Hypertensive chronic kidney disease [...] of 25.0 to 25.9 in adult Z68.25 [facility] [address] [facility] [address] [place] [address] 04/24/2024 Macariochrissy Johnsarez Acquired hypothyroid ism E03.9 ; Encounter for general adult medical examination without abnormal findings Z00.00 ; Essential (primary) hypertension I10 and Mixed hyperlipidemia E78.2 [facility] [address] [address] 05/02/2024 Macario Scott Severe persistent asthma without [...] monitor. 03/24/2024 Migraine syndrome (ICD-10 - G43.909) 05/02/2024 Moderate recurrent major depression (ICD-10 - F33.1) Recommended to patient avoid stressful situations. Will continue to monitor. 05/02/2024 Severe persistent asthma without complication (ICD-10 - J45.50) 04/24/2024 Encounter for general adult medical examination without abnormal findings (ICD-10 - Z00.00) 04/24/2024 Acquired hypothyroidism (ICD-10 - E03.9) 03/31/2024 Hypertensive chronic kidney disease with stage [...] 75 as per lab results from 03/25/2024 03/31/2024 Moderate recurrent major depression (ICD-10 - F33.1) Recommended to patient avoid stressful situations. Will continue to monitor. 04/24/2024 Essential (primary) hypertension (ICD-10 - I10) 05/02/2024 Hypertensive chronic kidney disease with stage 1 through stage 4 chronic kidney disease, or unspecified chronic kidney disease (ICD-10 - I12.9) CKD Stage II due to HTN. Blood pressure control and daily exercise as tolerated is recommended. Will continue to monitor. 03/24/2024 Mixed hyperlipidemia (ICD-10 - E78.2) 03/24/2024 Severe persistent asthma without complication (ICD-10 - J45.50) 04/24/2024 Mixed hyperlipidemia (ICD-10 - E78.2) 05/02/2024 CKD (chronic kidney disease), stage II (ICD-10 - N18.2) GFR 75 as per lab results from 04/26/2024 GFR 75 as per lab results from 03/25/2024 03/31/2024 Severe persistent asthma without complication (ICD-10 - J45.50) 03/31/2024 Mixed hyperlipidemia (ICD-10 - E78.2) 05/02/2024 Mixed hyperlipidemia (ICD-10 - E78.2) 03/24/2024 Fibromyalgia (ICD-10 - M79.7) Oriented patient to take Ibuprofen over the counter for pain as needed, will continue to monitor. 03/24/2024 Acquired hypothyroidism (ICD-10 - E03.9) 05/02/2024 Migraine syndrome (ICD-10 - G43.909) 03/31/2024 Migraine syndrome (ICD-10 - G43.909) 03/31/2024 Overweight (BMI 25.0-29.9) (ICD-10 - E66.3) Avoid overeating, eating too quickly, eating high-fat foods, eating during stressful situations, or drinking too much alcohol or coffee. Counseled patient on adequate diet and exercise as tolerant. 05/02/2024 Acquired hypothyroidism (ICD-10 - E03.9) 03/24/2024 Moderate recurrent major depression (ICD-10 - [...] patient on adequate diet and exercise. 03/24/2024 Former smoker (ICD-10 - Z87.891) Patient quit smoking 05/02/2024 Body mass index (BMI) of 25.0 to 25.9 in adult (ICD-10 - Z68.25) 03/24/2024 Body mass index (BMI) of 26.0 to 26.9 in adult (ICD-10 - Z68.26) 05/02/2024 Encounter for examination of eyes and vision without abnormal findings (ICD-10 - Z01.00) 03/24/2024 Encounter for fecal immunochemical test screening (ICD-10 - Z12.11) 05/02/2024 Encounter for screening mammogram for breast cancer (ICD-10 - Z12.31) 05/02/2024 Encounter for fecal immunochemical test screening (ICD-10 - Z12.11) 03/24/2024 Screening for osteoporosis (ICD-10 - Z13.820) 03/24/2024 [...] Comprehensive Metabolic Panel 14+eGFR-LC -Q 05/02/2024 Urinalysis, Uhyheiya-US-Z 05/02/2024 CBC With Differential/Rphklmrb-BQ-P 04/13 Mammo SCREENING MAMMO DIGITAL, SOHEILA 05/02 Mammo SCREENING MAMMO DIGITAL, SOHEILA 03/24 CHEST X-RAY (PA/LATERAL) 05/02/2024 CHEST X-RAY (PA/LATERAL) 03/24/2024 Future Test Test Name Order Date Lipid Panel With LDL/HDL Ratio-LC 2024 Comprehensive Metabolic Panel 14+eGFR-LC -Q 09/25/2024 Urinalysis, Hmtcahdb-SJ-J 09/25/2024 CBC With Differential/Wgkezuqz-LB-X 09/10 Insurance Providers Payer Name Payer Address Payer Phone Subscriber Number Group Number Insured Name Patient Relationship to Insured Coverage Start Date Coverage End Date [facility] [address] [address] [place] [phone] [id number] [place], [place] Self - patient is the insured Medical (General) History Medical History History ICD Code hyperension asthma sinusitis migraines thyroid Surgical History Surgery Date(Month/Year) hystrectomy total 1996 1970,1971 right leg n/a nose n/a carpal tunel on both hands n/a
--- OUTSIDE RECORDS SUMMARY | 2025-02-08 07:52 | XMS_ITS | Clinical Summary ---
Author Organization [facility] Address [address] [place] [address] Phone Care Team Providers Care Head Of Marketing Name Role Phone Addi Holland NP Primary Care Provider [phone] Allergies Active Allergy Reactions Criticality Noted Date [...] TUNNEL REL UPPER GASTROINTESTINAL ENDOSCOPY 08/18/2016 PROCEDURE: MA UPPER GI ENDOSCOPY PERFORMED; COMMENT: Erosive gastritis, [...] for your loved ones. For example, child development director or elderly care for an older adult? [...] mmol/L LAB CHEMISTRY METHOD 09/29/2024 7:05 AM [facility] Potassium 4.3 3.5 - 5.5 mmol/L LAB CHEMISTRY METHOD 09/29/2024 7:05 AM [facility] Chloride 100 96 - 110 mmol/L LAB CHEMISTRY METHOD 09/29/2024 7:05 AM [facility] CO2 33(H) 21 - 32 mmol/L LAB CHEMISTRY METHOD 09/29/2024 7:05 AM [facility] Anion Gap 4 3 - 11 LAB CHEMISTRY METHOD 09/29/2024 7:05 AM [facility] Glucose 101(H) 70 - 100 mg/dL LAB CHEMISTRY METHOD 09/29/2024 7:05 AM [facility] BUN 17 5 - 25 mg/dL LAB CHEMISTRY METHOD 09/29/2024 7:05 AM [facility] Creatinine 0.76 0.50 - 1.10 mg/dL LAB CHEMISTRY METHOD 09/29/2024 7:05 AM [facility] eGFR 83 >=60 mL/min/1. 73m2 LAB CHEMISTRY METHOD 09/29/2024 7:05 AM [facility] Comment:Calculation based on the Chronic Kidney Disease Epidemiology Collaboration (CKD-EPI) equation refit without adjustment for race. BUN/Creatinine Ratio 22.4 LAB CHEMISTRY METHOD 09/29/2024 7:05 AM [facility] Calcium 9.2 8.5 - 10.5 mg/dL LAB CHEMISTRY METHOD 09/29/2024 7:05 AM [facility] Blood Venous blood specimen / Unknown Venipuncture / Unknown 09/29/2024 5:58 AM EDT 09/29/2024 6:12 AM EDT Katelyn VIDAL LAB BLOOD ORDERABLES Hoa l Result [facility] [address] [place] [address], [place] [phone] * (ABNORMAL) Lipid panel with reflex to direct LDL (09/27/2024 10:20 AM EDT) Cholesterol 234(H) 0 - 200 mg/dL LAB CHEMISTRY METHOD 09/27/2024 12:46 PM EDT [facility] Triglycerides 71 0 - 150 mg/dL LAB CHEMISTRY METHOD 09/27/2024 12:46 PM EDT [facility] HDL 79 >=40 mg/dL LAB CHEMISTRY METHOD 09/27/2024 12:46 PM EDT [facility] LDL Calculated 141(H) 0 - 100 mg/dL LAB CHEMISTRY METHOD 09/27/2024 12:46 PM EDT [facility] VLDL Cholesterol Koby 14.2 mg/dL LAB CHEMISTRY METHOD 09/27/2024 12:46 PM EDT [facility] Non HDL Chol. (LDL+VLDL) 155(H) <145 mg/dL LAB CHEMISTRY METHOD 09/27/2024 12:46 PM EDT [facility] Chol/HDL Ratio 3.0 0.0 - 4.4 LAB CHEMISTRY METHOD 09/27/2024 12:46 PM EDT [facility] Blood Venous blood specimen / Unknown Venipuncture / Unknown 09/27/2024 10:20 AM EDT 09/27/2024 10:25 AM EDT Katelyn VIDAL LAB BLOOD ORDERABLES Hoa l Result [facility] [address] [place] [address], [place] [phone] * SCR MAMMO BI INCL CAD (06/28/2019 [...] EDT Narrative 06/22/2017 1:56 PM EDT [facility] Diagnostic Imaging Department [address] [place] [address] Patient: EDUARDO ENGEL /Age/Sex: 1950 - 66 - F Unit#: [id number] Location/Status: SPDIMAM/REG CLI Mnemonic/Ordering Site: MAMDEXAAX/SPMAM Ordering Physician: LITA TORRES MD [facility] Dexa Axial Skeleton - 06/22/17729 [facility] Dexa Axial Skeleton INDICATION: POST [...] placing the patient at risk for fracture. 19425 A report detailing these results has been enclosed. Dictating Physician: BEN FREDERICK MD Electronically Signed by: BEN FREDERICK MD Dic Date/Time: 06/22/17 135 Sign date/Time: 06/22/17 1356 Procedure Note Ben Frederick MD - 03/31/2022 [facility] Diagnostic Imaging Department [address] [place] [address] Patient: JONAH NAGYEDUARDO /Age/Sex: 1950 - 66 -F Unit#: [id number] Location/Status: SPDIMAM/REG CLI Mnemonic/Ordering Site: MAMDEXAAX/SPMAM Ordering Physician: LITA TORRES MD [facility] Dexa Axial Skeleton - 06/22/17729 [facility] Dexa Axial Skeleton INDICATION: POST MENOPAUSE Technique: Bone densitometry was performed utilizing dual energy x-ray absorptiometry (DEXA). The lumbar spine is evaluated in the AP projectionfrom L1 through L4. The proximal femora are evaluated in the AP projection bilaterally. There are no prior studies available for direct comparison at [facility]. Findings: AP spine: Bone mineral density: 0.983 gm/cm2 T-score: -1.5 Femoral total (mean, bilateral): Bone mineral density: 0.704 gm/cm2 T-score: -2.4 Left femoral neck: Bone mineral density: 0.618 gm/cm2 T-score: -3.0 IMPRESSION: Findings suggesting osteoporosis, placing the patient at risk forfracture. 16995 A report detailing these results has been enclosed. Dictating Physician: BEN FREDERICK MD Electronically Signed by: BEN FREDERICK MD Dic Date/Time: 06/22/17 1351 Sign date/Time: 06/22/17 1356 Lita Torres MD IMG BI PROCEDURES Final Resu lt from Last 3 Months or Most Recently Relevant to Health Maintenance Insurance [address] [place] [address] MEDICARE Member Subscriber Plan / Payer (Ef fective 2024-Present) Name:EDUARDO ABREU Relation to Subscriber:Self Name:Eduardo Engel Payer ID:[id number] Group ID:[id number] Type:Not on file Address: [address] [employer] [place] [address] Advance Directives * Full Code - Default [...] currently active code status orders. Care Teams Head Of Marketing Relationship Specialty Start Date End Date Addi Holland NP [address] [place], [place] PCP - General Family Medicine 03/04/21
--- OUTSIDE RECORDS SUMMARY | 2025-02-08 07:52 | XMS_ITS | Patient Health Record ---
Author Organization [facility] Address [address] [place] [address] Care Team Providers Care Engraver Set Up Operator Name Role Phone AUTUMN PADILLA Primary [...] 90 days Active Vitamin A 3 MG (20542 UT) Capsule 1 capsule with food or [...] W/U Status Risk Notes Problem Opioid abuse (1305624) Opioid abuse, uncomplicated (F11.10) Active confirmed Acetaminophen -codeine 300 mg 1 tab since 11/2023 Consult notes 02/29/2024 Medical Record page 05/26 Problem Severe major depression, single episode, without psychotic features (78236915) Major depressive disorder, single episode, 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) Active confirmed PHQ-9 score 20 Severe Depression Problem Insomnia (830607499) Insomnia (G47.00) Active confirmed Problem Osteoporosis (85412804) Osteoporosis (M81.0) Active confirmed Problem Moderate recurrent major depression (76582460) 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 Active confirmed PHQ-9 score 20 Severe Depression Date 02/29/2024 [facility] page 5 the patient has Moderate recurrent major depression Problem Gastroesophageal reflux disease (476444564) GERD (K21.9) Active confirmed Vital Signs Temperature 97.4 degrees Fahrenheit 02/29/2024 Respiratory Rate 19 /min 02/29/2024 Oximetry 99 02/29/2024 Blood pressure diastolic 89 02/29/2024 Height 62 in 02/29/2024 Blood pressure systolic 130 02/29/2024 Weight 143 lbs 02/29/2024 BMI 26.15 kg/m2 02/29/2024 Encounters Encounter Location Date Provider Diagnosis [facility] [address] [place] [address] 02/29/2024 AUTUMN BEASLEY Encounter for general adult [...] possible duration of sleep aides, and discussed intermodal dispatcher side effects of these. 02/29/2024 Osteoporosis (ICD-10 [...] Order Date CBC with Differential & Platelets (53226 9) [facility] 02/29/2024 TSH & Free T4 (502370) [facility] UA Urinalysis with Reflex to Culture (37 2532) [facility] 02/29/2024 CMP Comp. Metabolic Panel (14) (459379) [facility] 02/29/2024 Lipid Panel (886137) [facility] 02/29/2024 Hemoglobin A1c 02/29/2024 Insurance Providers Payer Name Payer Address Payer Phone Subscriber Number Group Number Insured Name Patient Relationship to Insured Coverage Start Date Coverage End Date [facility] [address] [place] [address] [phone] [id number] Marie Engel Self - patient is the insured 4 4 Medical (General) History Medical History History ICD Code Insomnia Esophageal reflux oropharyngeal dyspnea Gastritis migraine dyslipidemia hypothyroidism osteoporosis anxiety essential hypertension Surgical History Surgery Date(Month/Year) shoulder surgery c section x2 hysterectomy nasal surgery carpal tunnel leg surgery left x2 NECK SURGERY
--- OUTSIDE RECORDS SUMMARY | 2025-02-08 07:53 | XMS_ITS | Clinical Summary ---
Author Organization [facility] Address [address] [address] Phone Care Team Providers Care Superintendent Greens Name Role Phone Addi Holland NP Primary [...] MEDICARE REPLACEMENT MEDICARE PART A & B [address] [place], [place] [address] MEDICARE REPLACEMENT MEDICARE PART A & B MEDICARE PART A & B Member Subscriber Plan / Payer (Ef fective 2023-Present) Name:Marie Mckenzie Member ID:[id number] Relation to Subscriber:Self Name:Marie Mckenzie Subscriber ID:[id number] Payer ID:[id number] Group ID:Not on file Type:Medicare Address: [employer] [facility] [address] [address] MEDICARE PART A & B [facility] [employer] MEDICARE REPLACEMENT [place] [id number] MEDICARE PART A & B Care Teams Superintendent Greens Relationship Specialty Start Date End Date Addi Holland NP 1960 [facility] [place] [address] PCP - General Nurse Practitioner 02/17/23 Additional Source Comments The information contained in this document represents components of the legal health record. It is not the complete legal health record.[facility]
[2025-02-08 08:11] LABS: MANUAL DIFF FLAG NO
[2025-02-08 08:45] LABS: INTERNATIONAL NORM RATIO 0.9 (0.9-1.1); Prothrombin Time 10.8 SEC (10.9-12.4)
[2025-02-08 08:46] LABS: Hematocrit 38.9 % (37.0-47.0); Hemoglobin 12.1 g/dl (12.0-16.0); Imm Gran Abs Auto 0.00 X10*3/uL (0.00-0.03); Imm Gran Pct Auto 0.0 % (0.0-0.4); Lymphocytes Absolute Auto 1.8 X10*3/uL (1.2-4.9); Mean Corpuscular HGB Conc 31.1 g/dl (31.0-35.0); Mean Corpuscular Hemoglobin 27.2 pg (27.0-33.0); Mean Corpuscular Volume 87.4 fL (80.0-98.0); NRBC Abs Auto 0.000 X10*3/uL (0.0-0.012); NRBC Pct Auto 0.0 /100WBC (0.0-0.2); Platelet Count 230 X10*3/uL (160-400); Red Blood Count 4.45 X10*6/uL (4.20-5.50); White Blood Count 4.4 X10*3/uL (4.8-10.8)
[2025-02-08 08:47] LABS: Partial Thromboplastin Time 30.3 SEC (26.7-34.1)
[2025-02-08 08:52] LABS: Alanine Aminotransferase 10 U/L (0-31); Albumin Level 4.5 g/dL (3.5-5.0); Alkaline Phosphatase 87 U/L (39-117); Anion Gap 13 (12-20); Aspartate Amino Transferase 19 U/L (5-31); Blood Urea Nitrogen 17 mg/dL (9-16); Calcium 9.8 mg/dL (8.4-10.2); Carbon Dioxide 29 mmol/L (22-29); Chloride 107 mmol/L (96-108); Creatinine Clr Calc Pharmacy 55.3; Estimated Glomerular Filt Rate > 60; Potassium 5.2 mmol/L (3.3-5.1); Sodium 144 mmol/L (135-145); Total Protein 7.1 g/dL (6.5-8.0)
--- NOTE | 2025-02-15 09:48 | P.CONAN_ITS ---
Documented by User: Kelly Danielle NP 02/15/25 09:50 HPI - Anesthesia Eval Consult details Narrative: 74yo F for Panniculectomy, Bilateral Brachioplasty s/p gastric sleeve 06/2023 with GA-ETT 7 PMFSH Active Problems Active Problems: All Active Problems Excess skin (Acute) Hospital discharge follow-up (Acute) Nausea (Acute) UTI (urinary tract infection) (Acute) Fractured nose (Acute) Facial laceration (Acute) Syncope (Acute) Overweight (Acute) Liver fibrosis (Acute) S/P laparoscopic sleeve gastrectomy (Acute) Hiatal hernia (Acute) Presbyesophagus (Acute) BMI 33.0-33.9,adult (Acute) Dysphagia (Acute) PTSD (post-traumatic stress disorder) (Acute) Depression (Acute) BMI 34.0-34.9,adult (Acute) Preop cardiovascular exam (Acute) Dizziness (Acute) Obesity (Acute) Sacroiliac joint dysfunction (Acute) Cervical spondylosis (Acute) Acute bronchitis (Acute) Obstructive sleep apnea (Acute) Sinus tachycardia (Acute) Hypothyroid (Acute) Cervical postlaminectomy syndrome (Acute) Right hip pain (Acute) Memory loss (Acute) Chronic pain (Acute) Radiculopathy, cervical (Acute) Palpitations (Acute) Low back pain radiating to lower extremity (Acute) Right shoulder pain (Acute) Physical exam (Acute) Pre-op evaluation (Acute) Chest tightness (Acute) Hordeolum external (Acute) Shortness of breath (Acute) Right elbow pain (Acute) Fall (Acute) Insomnia (Acute) GERD (gastroesophageal reflux disease) (Acute) Essential hypertension (Acute) Anxiety (Acute) Dyslipidemia (Acute) Osteoporosis (Acute) Hypothyroidism (Acute) Migraines (Acute) Past Medical History Medical History Insomnia PONV (postoperative nausea and vomiting) GERD (gastroesophageal reflux disease) Oropharyngeal dysphagia Gastritis Migraines Dyslipidemia Hypothyroidism Osteoporosis Anxiety Essential hypertension Family History Family History Father Cancer of prostate Mother HTN (hypertension) Maternal Grandmother Stroke Asthma Brother Substance use disorder Family history of problems with anesthesia: No Surgical History Surgical History History of esophagogastroduodenoscopy (EGD) H/O colonoscopy History of sleeve gastrectomy History of shoulder surgery History of section History of nasal surgery History of surgery History of carpal tunnel surgery History of neck surgery History of Problems with Anesthesia: Yes Social History Social History Household Members: Spouse Housing: Apartment Are you a primary coronary care unit nurse to a significant other at home: No 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 If so, by whom?: No Are you DNR?: No Advance Directives: No Advance Directives Information Provided: Yes Advance Directives on File: No Patient : No : No service: No Current occupational status: retired Cognitive needs: No Hearing needs: No Vision needs: No Meds Allergies Allergy/AdvReac Type Severity Reaction Status Date / Time tramadol Allergy Severe Itching Verified 02/20/25 06:19 Home Medications ?Medication ?Instructions ?Recorded ?Confirmed ?Last Taken ?Type multivitamin 1 tab PO DAILY 02/07/2502/10 Unknown History Exam Height,Weight and Vital Signs: Height 5 ft 2 in Weight 63.049 kg Pertinent Lab Results Pertinent Lab Results: Laboratory Tests 02/08/25 08:10 WBC 4.4 L RBC 4.45 Hgb 12.1 Hct 38.9 MCV 87.4 MCH 27.2 MCHC 31.1 RDW 13.6 Plt Count 230 MPV 9.7 Immature Gran % (Auto) 0.0 Neut % (Auto) 49.2 Lymph % (Auto) 40.0 [place] % (Auto) 7.7 Eos % (Auto) 2.9 Baso % (Auto) 0.2 Lymph # (Auto) 1.8 [place] # (Auto) 0.3 Eos # (Auto) 0.1 Baso # (Auto) 0.0 Abs Immat Gran (auto) 0.00 Absolute Neuts (auto) 2.2 Absolute Nucleated RBC 0.000 Nucleated RBC % (auto) 0.0 PT 10.8 L INR 0.9 APTT 30.3 Sodium 144 Potassium 5.2 H Chloride 107 Carbon Dioxide 29 Anion Gap 13 BUN 17 H Creatinine 0.79 Estim Creat Clear Calc 55.3 Estimated GFR > 60 Random Glucose 96 Calcium 9.8 Total Bilirubin 0.4 AST 19 ALT 10 Alkaline Phosphatase 87 Total Protein 7.1 Albumin 4.5 Narrative Narrative: EKG 2023 Vent. Rate : 075 BPM Atrial Rate : 075 BPM P-R Int : 174 ms QRS Dur : 082 ms QT Int : 386 ms P-R-T Axes : 052 -12 006 degrees QTc Int : 431 ms Normal sinus rhythm Normal ECG When compared to the previous EKG of No significant changes seen Assessment and Plan Assessment Anesthesia Assessment: Chart Reviewed Final Anesthetic Review Family History of Problems with Anesthesia: No History of Problems with Anesthesia: Yes Documented by User: Sofía Martinez MD 02/20/25 08:57 PMFSH Past Medical History Medical History Insomnia PONV (postoperative nausea and vomiting) GERD (gastroesophageal reflux disease) Oropharyngeal dysphagia Gastritis Migraines Dyslipidemia Hypothyroidism Osteoporosis Anxiety Essential hypertension Family History Family History Father Cancer of prostate Mother HTN (hypertension) Maternal Grandmother Stroke Asthma Brother Substance use disorder Surgical History Surgical History History of esophagogastroduodenoscopy (EGD) H/O colonoscopy History of sleeve gastrectomy History of shoulder surgery History of section History of nasal surgery History of surgery History of carpal tunnel surgery History of neck surgery History of Problems with Anesthesia: No Social History Social History Household Members: Spouse Housing: Apartment Are you a primary coronary care unit nurse to a significant other at home: No 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 If so, by whom?: No Are you DNR?: No Advance Directives: No Advance Directives Information Provided: Yes Advance Directives on File: No Patient : No : No service: No Current occupational status: retired Cognitive needs: No Hearing needs: No Vision needs: No Meds Allergies Allergy/AdvReac Type Severity Reaction Status Date / Time tramadol Allergy Severe Itching Verified 02/20/25 06:19 Home Medications ?Medication ?Instructions ?Recorded ?Confirmed ?Last Taken ?Type multivitamin 1 tab PO DAILY 02/07/2502/10 Unknown History Exam Airway Mallampati Class: II TM Dist: >3cm Neck ROM: Full Loose/Missing/Broken Teeth: No Heart: RRR Lungs: CTA Assessment and Plan Assessment Anesthesia Assessment: Anesthesia Plan Discussed Final Anesthetic Review History of Problems with Anesthesia: No NPO: Yes ASA Class: II Final Preanesthetic Review: Meds/Allgs Chart Reviewed, Consent Obtained/Reviewed and Anes Risks/Benef Reviewed Patient Risk: Low Procedure Risk: Low Anesthetic Plan Anesthetic Plan: GA Disposition: Standard PACU
[2025-02-20] VITALS (9 sets, daily range): BP systolic 105–141; BP diastolic 49–77; PULSE 58–91; RESP 15–16; TEMP 36.3–36.4; O2SAT 96–99; BMI 25.2
[2025-02-20] MEDS: Aprepitant 32 MG/4.4 ML VIAL IVPUSH (06:31)
[2025-02-20] MEDS: Lactated Ringers 1,000 ML 100 ML IVCONT (06:31)
--- NOTE | 2025-02-20 07:37 | MHC.SHP ---
Pre-Procedural Eval Section A - 24 Hr Update-Section A only Date of Service: 02/20/25 The patient is an INPATIENT: No The patient has been examined within 24 hours of the surgical procedure. The History & Physical has been completed within 30 days and I have reviewed it.: Yes Section B - Complete if H&P > 30 days Chief Complaint: Excessive and redundant skin and subcutaneous tiss Relevant Family History (Specify if Yes): No Relevant Social History: None Present Medications: None Medical History: No relevant PMH History of Previous Operations: Relevant previous surgery/procedure and date(s) (Laparoscopic sleeve gastrectomy) Allergies: Allergies Allergy/AdvReac Type Severity Reaction Status Date / Time tramadol Allergy Severe Itching Verified 02/20/25 06:19 Review of Systems Sugical H&P ROS: Negative: Constitution, Cardiovascular, Respiratory, Neurological, Psychiatric, Hem-Onc, Allergic/Immunologic, Gastrointestinal, Genitourinary, Musculoskeletal, Integumentary, Endocrine and Eyes/Ears/Nose/Throat Exam Surgical H&P Exam: Normal: HEENT, Normal: Heart, Normal: Lungs, Normal: Extremities, Normal: Abdomen, Normal: Skin and Normal: Neurological Plan Diagnosis/Plan: Unchanged I have reviewed the history and physical and performed a pertinent physical examination on my patient. No changes have occurred unless specified. Time Spent With Patient Time: Total time managing care of this patient today ____ minutes.
--- NOTE | 2025-02-20 07:41 | P.BOP_ITS ---
Brief Operative Note Date of Service: 02/20/25 Pre-op diagnosis: Excess skin Procedure: PROCEDURE: Panniculectomy with umbilical transposition and bilateral subcutaneous fat flaps, bilateral brachioplasty INDICATION: This a 74 year old female who underwent laparoscopic sleeve gastrectomy on 06/17/2023. She had an excellent result achieving a BMI of 25.7 kg/m2 with a total weight loss of 59.7lbs, or 29.9% of her TBWL. As a result, she has developed panniculitis which has not resolved despite continuous use of clotrimazole ointment as well as skin irritation and intetrigo in both upper arms. On exam she has extreme skin laxity due to massive weight loss and age with the abdominal pannus completely hiding the genitalia and the upper arms 6 cm below the level of the triceps. Panniculectomy with bilateral brachioplasty was recommended. We discussed the two options for the panniculectomy of using a combined vertical and horizontal incisions or just a horizontal (bikini) incision. It was my recommendation to do only horizontal incision based on her body habitus and skin laxity. The patient agreed with this. Risks and complications were discussed with the patient including bleeding, infection, umbilical loss, flap necrosis, asymmetry, dehiscence, seroma, VTE. The patient understood the risks and was in agreement to proceed with surgery. PROCEDURE: The incisions were appropriately marked at the preop area with the patient standing and laying down. After induction of general anesthesia, pneumatic compression devices were placed. The patient was prepped and draped in the usual sterile manner and the incisions were marked again and confirmed. In similar fashion both upper arms were also marked when the patient was standing. The upper arms were performed first. The skin was infiltrated with lidocaine and epinephrine. Skin was excised with the #15 blade. Cautery was used to separate the skin from subcutaneous tissues. Careful attention was paid to make sure that the plain of excision was superficial as close to the skin as possible. The right upper arm skin was 25 cm x 7 cm and the left 26 cm x 7 cm. Skin was closed in two layers using interrupted 3.0 Monocryl sutures for the dermis and 4.0 subcuticular Monocryl suture for the skin. The skin was infiltrated with lidocaine and epinephrine. The #10 blade scalpel was used for the large incisions and the #15 blade scalpel for the umbilicus. Cautery was used to divide the subcutaneous tissues until the fascia was identified. Then I used the cautery to separate the pannus from the fascia. The inferior incision was made initially and I mobilized the flap for a several centimeters cephalad to the umbilicus. The umbilicus was incised circumferentially and detached from the surrounding tissues all the way to the fascia while its stalk was preserved. With the patient in reflex position I confirmed that the skin flaps were appropriate and would allow for the tissues to come together with reasonable tension. At that point a horizontal incision was made 4 cm above the umbilicus. #10 blade was used for the skin, cautery for the dermis and for the remaining tissues. A subcutaneous fat flap was raised from the upper skin flap in order to fill the space under the skin and support the closure of the two flaps. In addition the inferior flap was mobilized caudally for a few centimeters to create a space for the subcutaneous fat flap as well as relieve tension from the closure. A circumferential incision was made at the area where the umbilicus would be re-implanted. The umbilicus was appropriately oriented and was delivered through the defect and was secured in place with a Chelle. No bleeding was noted anywhere. One NANCY drain was placed from the left corner of the horizontal incision across the wound and was secured in place with a silk suture. The subcutaneous fat flap was secured under the inferior flap with several interrupted 3.0 Monocryl sutures. The two flaps were brought together and were attached at the midline of the horizontal incision with a #3.0 Monocryl suture. At that point the umbilicus was properly oriented and was re-approximated to the skin with 8 interrupted 3.0 Monocryl sutures. In a similar fashion the skin flaps were re-approximated with multiple 3.0 Monocryl sutures. The skin was closed in all incisions and umbilicus with 4.0 Monocryl sutures. Steri-strips, xeroform gauzes and gauzes were used to cover the incisions. An abdominal binder was also placed. The was awaken and was transferred to the recover room in a stable condition. I was present and performed the entire procedure. Ms. Garrido was the child center assistant. Qasim Alberto MD, PhD, FACS Surgeon: Shaggy Alberto MD Surgeon: Shaggy Alberto MD Anesthesia: local Was an Cancellation Clerk used for this Procedure?: No Cancellation Clerk: Romelia Garrido Estimated blood loss (mL): 10 IV fluids (mL): 1,400 Urine output (mL): 0 (No More to record output) Pathology: other (1) abdominal pannus, 2) right upper arm, 3) left upper arm) Condition: stable Disposition: PACU
--- NOTE | 2025-02-20 07:54 | P.F2F_ITS ---
Service Date Service Date: 02/20/25 Encounter Date of encounter: 02/20/25 Reasons for Services Signs and symptoms assessed: s/p panniculectomy and bilateral brachioplasty Reason for custodial: wound care Homebound: Leaving the home is medically contraindicated at this time without the asist of a device and/or another person due th the listed conditions above and below. Reason homebound: unable to drive Certification: Based on the above findings, I certify that this patient is confined to the home and needs intermittent custodial care, physical therapy and/or speech therapy, or continues to need occupational therapy. The patient is under my care, and I have initiated the establishment of the plan of care. The patient will be followed by a physician who will periodically review the plan of care. Time Spent With Patient Time: Total time managing care of this patient today __30__ minutes.
== END 2025-02-20 16:52 | disposition home or self-care (01) ==
PROVIDERS: PCP Nurse Practitioner Family; Visit Provider Surgery
PROC: 0JB80ZZ Excision of Abdomen Subcutaneous Tissue and Fascia, Open Approach (ICD-10-PCS; CPT 15830; principal; 2025-02-20 08:00)
PROC: (CPT 15836; 2025-02-20 08:00)
DX: L98.7 Excessive and redundant skin and subcutaneous tissue (principal); M79.3 Panniculitis, unspecified; E65 Localized adiposity; L30.4 Erythema intertrigo; Z90.3 Acquired absence of stomach [part of]; Z98.84 Bariatric surgery status; I10 Essential (primary) hypertension; E78.5 Hyperlipidemia, unspecified; E03.9 Hypothyroidism, unspecified; F41.9 Anxiety disorder, unspecified; R13.12 Dysphagia, oropharyngeal phase; K29.70 Gastritis, unspecified, without bleeding; K21.9 Gastro-esophageal reflux disease without esophagitis; G43.909 Migraine, unspecified, not intractable, without status migrainosus; G47.00 Insomnia, unspecified; M81.0 Age-related osteoporosis without current pathological fracture; Z79.899 Other long term (current) drug therapy; Z88.5 Allergy status to narcotic agent; Z98.890 Other specified postprocedural states; Z87.891 Personal history of nicotine dependence
CPT/HCPCS: 15830; 15847; 15836; 36415; 80053; 85025; 85610; 85730; 86850; 86900; 86901; 88304; 88305; C9145; J0131; J0690; J1100; J1171; J2003; J2004; J2371; J2405; J2704; J3010; J3374

== ENCOUNTER → 2025-02-20 05:45 | Outpatient (BNV) | payer OTHER, SELFPAY | PROVIDERS: PCP Nurse Practitioner Family; Visit Provider Physician Assistant Surgical | DX: M79.3 Panniculitis, unspecified (principal); L98.7 Excessive and redundant skin and subcutaneous tissue | CPT/HCPCS: 15830; 15836; G0180 ==

== ENCOUNTER 2025-02-27 13:37 | Outpatient (AMB) | payer OTHER, SELFPAY ==
--- NOTE | 2025-02-27 13:41 | MHC.OFFVISWM ---
Intake Visit Reasons: OV PO Panni + Brachioplasty 02/20/25 Allergies tramadol Allergy (Severe, Verified 02/20/25 06:19) Itching PFSH Medical History Insomnia PONV (postoperative nausea and vomiting) GERD (gastroesophageal reflux disease) Oropharyngeal dysphagia Gastritis Migraines Dyslipidemia Hypothyroidism Osteoporosis Anxiety Essential hypertension Surgical History History of esophagogastroduodenoscopy (EGD) H/O colonoscopy History of sleeve gastrectomy History of shoulder surgery History of section History of nasal surgery History of surgery History of carpal tunnel surgery History of neck surgery Family History Father Cancer of prostate Mother HTN (hypertension) Maternal Grandmother Stroke Asthma Brother Substance use disorder Social History Household Members: Spouse Caregiver staying overnight: No Housing: Apartment Are you a primary assistant child care teacher to a significant other at home: No Do you presently have 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
--- NOTE | 2025-02-27 13:59 | MHC.OFFVISWM ---
VS Expanded 02/27/25 14:00 BP 122/77 Blood Pressure Location Rt brachial Blood Pressure Position Sitting Pulse 83 Pulse Source Pulse Oximeter Temp 98.2 F Temperature Source Temporal Artery Scan Pulse Oximetry 98 Oxygen Delivery Method Room Air Intake Visit Reasons: OV PO Panni + Brachioplasty 02/20/25 Allergies tramadol Allergy (Severe, Verified 02/27/25 14:00) Itching Medication List - Last Reconciled 02/27/25 by Jonna Adkins CNP atenolol 50 mg PO DAILY Held on 06/18/23. Instructions: Resume on 06/19/23. Check your blood pressure every morning as soon as you wake up and send it to Dr. Alberto. Do no take the blood pressure medication if the blood pressure is below 120/70. Wait every day to hear back from Dr. Alberto before you take the medication. [id number]-taok 50-300-40 mg (Fioricet) 2 caps PO Q8H PRN cephalexin 500 mg PO Q12H [chair lift daily use NS] clotrimazole 1% 1 appl topical BID docusate sodium (Colace) 100 mg PO DAILY hospital bed daily miscellaneous medical supply daily use, ECO-Patch Reusable self adhesive electrodes for TENS FES/NMES multivitamin 1 tab PO DAILY ondansetron HCl 4 mg PO Q12H rizatriptan take 1 tab at onset of headache; if no relief may repeat 1 tab after at least 2 hrs; max = 3 tabs/24 hr PO HPI Comments Details: 74 year old woman s/p panniculectomy and bilateral brachioplasty 02/20/2025. s/p LSG 06/16/2023 VNA for dressing changes. She reports irritation and blisters from the tape. Drain in place, she reports moderate serosanguineous output. Compliant with abd binder. Compliant with meal plan. [facility] Medical History Insomnia PONV (postoperative nausea and vomiting) GERD (gastroesophageal reflux disease) Oropharyngeal dysphagia Gastritis Migraines Dyslipidemia Hypothyroidism Osteoporosis Anxiety Essential hypertension Surgical History (Updated 02/27/25 @ 14:53 by Jonna Adkins CNP) S/P brachioplasty S/P panniculectomy History of esophagogastroduodenoscopy (EGD) H/O colonoscopy History of sleeve gastrectomy History of shoulder surgery History of section History of nasal surgery History of surgery History of carpal tunnel surgery History of neck surgery Family History Father Cancer of prostate Mother HTN (hypertension) Maternal Grandmother Stroke Asthma Brother Substance use disorder Social History Household Members: Spouse Caregiver staying overnight: No Housing: Apartment Are you a primary medicare sales executive to a significant other at home: No Do you presently have 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 or 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) 75 years or older and lives alone: No Alcohol intake: never Patient Tobacco Use Status: Former Tobacco user Tobacco use type: Cigarette e-Cigarette/Vaping Use: Never Used Second Hand Smoke Exposure: No service: No Current occupational status: retired Cognitive needs: No Hearing needs: No Vision needs: No Physical Exam Vital Signs: Last Vital Signs Temp 98.2 F 02/27/25 14:00 Pulse 83 02/27/25 14:00 BP 122/77 02/27/25 14:00 Pulse Ox 98 02/27/25 14:00 Oxygen Delivery Method Room Air 02/27/25 14:00 Const General: cooperative, comfortable and no acute distress Orientation/consciousness: patient oriented x3 GI Other: abd soft, non tender, non distended. Panniculectomy incision healing well, with drain in place, moderate serosanguinous output. Neuro General: patient oriented x3 Extrem Other: bilateral brachioplasty incisions healing well. Right arm with multiple small blisters, all intact, without any openings, drainage, or S&S of infection. Assessment & Plan Assessment & Plan (1) S/P laparoscopic sleeve gastrectomy: Comment: june 2023 Code(s): Z98.84 - Bariatric surgery status Category: Surgical (2) Excess skin: Code(s): L98.7 - Excessive and redundant skin and subcutaneous tissue Category: Medical (3) S/P brachioplasty: Code(s): Z98.890 - Other specified postprocedural states Category: Surgical (4) S/P panniculectomy: Code(s): Z98.890 - Other specified postprocedural states Category: Surgical Plan Continue high protein diet. Continue ABX keflex 500 BID for now, discontinue 1 week after drain removal. Drain out after consistently 20 mL or less daily.? Abdominal binder at all times except for care x 1 month MINIMUM. Longer if there are concerns.? No walking outside or exercise for 6 weeks minimum. Walking in the house after 1st appt if we are satisfied with progress. Assistance getting up for 4 weeks minimum. No lifting greater than 10 pounds x 2 months and no abdominal exercises x 3 months. No driving until drain out.? Follow up: 1 week as scheduled 03/07/2025
[2025-02-27 14:00] VITALS: BP 122/77; PULSE 83; TEMP 36.8; O2SAT 98
== END 2025-02-27 14:27 | disposition home or self-care (01) ==
PROVIDERS: PCP Nurse Practitioner Family; Visit Provider Nurse Practitioner
DX: L98.7 Excessive and redundant skin and subcutaneous tissue (principal); Z98.84 Bariatric surgery status; Z98.890 Other specified postprocedural states
CPT/HCPCS: 99024; 99499

== ENCOUNTER → 2025-02-27 13:37 | Outpatient (BNVA) | payer OTHER, SELFPAY | PROVIDERS: PCP Nurse Practitioner Family; Visit Provider Physician Assistant Surgical | DX: Z48.817 Encounter for surgical aftercare following surgery on the skin and subcutaneous tissue (principal); Z98.84 Bariatric surgery status; L98.7 Excessive and redundant skin and subcutaneous tissue | CPT/HCPCS: 99212 ==

== ENCOUNTER → 2025-03-07 09:07 | Outpatient (BNVA) | payer OTHER, SELFPAY | PROVIDERS: PCP Nurse Practitioner Family; Visit Provider Physician Assistant Surgical | DX: Z48.815 Encounter for surgical aftercare following surgery on the digestive system (principal); Z98.84 Bariatric surgery status; Z98.890 Other specified postprocedural states; E66.3 Overweight | CPT/HCPCS: 99212 ==

== ENCOUNTER 2025-03-07 09:27 | Outpatient (AMB) | payer OTHER, SELFPAY ==
--- OUTSIDE RECORDS SUMMARY | 2024-01-28 05:15 | XMS_ITS ---
Author Organization [facility] Address [address] [place] [address] Care Team Providers Care Consumer Education Specialist Name Role Phone AUTUMN PADILLA Primary Care Provider [phone] REASON FOR VISIT Courtesy Visit Vital Signs Temperature 97.6 degrees Fahrenheit 01/28/20 24 Respiratory Rate 20 /min 01/28/2024 Height 5'2 in 01/28/2024 Weight 145 lbs 01/28/2024 BMI 26.52 kg/m2 01/28/2024 Oximetry 99 01/28/2024 Blood pressure systolic 120 01/28/20 24 Blood pressure diastolic 81 024 Encounters Encounter Location Date Provider Diagnosis [facility] [address] [place] [address] 01/28/2024 AUTUMN BEASLEY Plan Of Treatment No Information Progress Notes * LOIS NAGY MarieDO B:1950 (74 yo F)Acc No.[id number]:01/28/2024 Patient: Lawson janayshira Marie Nagy Provider: Lawson BEASLEY MD :1950 A ge:73 Y S ex:Female Date:01/28/2024 Phone: Address:[address] [place] [phone] Structured Data:Consent to r eceive voicemail/text messages? : YES Subjective: * Chief Complaints: * C ourtesy Visit Objective: * Vitals: I nitials: AM, BP sittin/81, RR:20/min, Oxygen sat %:99, Pulse sittin, Temp:97.6F, Wt:145lbs, Ht-in: 5'2 , BMI:26.52Index, Pain scale:01-10. Plan: * Procedure Codes: 3 074F SYST BP < 130 [id number] DIAST BP 80-89 MM HG Billing Information: * Procedure Codes: 3074F SYST BP < 130 mmHg. 3079F DIAST BP 80-89 MM HG. * Electronic signature of AUTUMN BEASLEY MD on 03/07/2025 at 09:55 AM EST Sign off status: Pending * Provider: Lawson BEASLEY MD Date: Generated for Tom kenny/Dania/Simiitting on: 05/07/2024 09:55 AM EST
--- OUTSIDE RECORDS SUMMARY | 2024-02-28 04:15 | XMS_ITS ---
Author Organization [facility] Address [address] [place] [address] Care Team Providers Care Presser And Shaper Knitted Goods Name Role Phone AUTUMN PADILLA Primary Care Provider REASON FOR VISIT new patient, Please request prev medical records Encounters Encounter Location Date Provider Diagnosis [facility] [address] [place] [address] 02/28/2024 AUTUMN BEASLEY Plan Of Treatment No Information Progress Notes * Marie ENGELDO B:1950 (74 yo F)Acc No.[id number]:02/28/2024 Patient: Marie Sterling Provider: Lawson BEASLEY MD :1950 A ge:73 Y S ex:Female Date:02/28/2024 Phone: Address:[address] [place], [place] [phone] Structured Data:Consent to r eceive voicemail/text messages? : YES Subjective: * Chief Complaints: * N ew patientPlease request prev medical records Billing Information: * Procedure Codes: * Electronic signature of AUTUMN BEASLEY MD on 03/07/2025 at 09:54 AM EST Sign off status: Pending * Provider: Lawson BEASLEY MD Date: 04/29/2023 Generated for Tom kenny/Dania/eTransmitting on: 05/07/2024 09:54 AM EST
--- OUTSIDE RECORDS SUMMARY | 2024-02-28 04:15 | XMS_ITS ---
Author Organization [facility] Address [address] [place] [address] Care Team Providers Care Program Architect Name Role Phone AUTUMN PADILLA Primary Care Provider REASON FOR VISIT new patient Encounters Encounter Location Date Provider Diagnosis [facility] [address] [place] [address] 02/28/2024 AUTUMN BEASLEY Plan Of Treatment No Information Progress Notes * Marie ENGELDO B:1950 (74 yo F)Acc No.[id number]:02/28/2024 Patient: Lawson janayshira Marie Nagy Provider: Lawson BEASLEY MD :1950 A ge:73 Y S ex:Female Date:02/28/2024 Phone: Address:[address] [place], [place] [phone] Structured Data:Consent to r eceive voicemail/text messages? : YES Subjective: * Chief Complaints: * N ew patient * Electronic signature of AUTUMN BEASLEY MD on 03/07/2025 at 09:54 AM EST Sign off status: Pending * Provider: Lawson BEASLEY MD Date: 04/29/2023 Generated for Printi ng/Faxing/eTransmitting on: 05/07/2024 09:54 AM EST
--- OUTSIDE RECORDS SUMMARY | 2024-02-29 05:00 | XMS_ITS ---
Author Organization [facility] Address [address] [place] [address] Care Team Providers Care Collection Systems Worker Name Role Phone AUTUMN PADILLA Primary Care Provider [phone] REASON FOR VISIT BLOCK BREAKER Encounters Encounter Location Date Provider Diagnosis [facility] [address] [place] [address] 02/29/2024 AUTUMN BEASLEY Plan Of Treatment No Information Progress Notes * Marie ENGELDO B:1950 (74 yo F)Acc No.[id number]:02/29/2024 Patient: Lawson kapoor YakovMarie Provider: Lawson BEASLEY MD :1950 A ge:73 Y S ex:Female Date:02/29/2024 Phone: Address:[address] [place], [place] [phone] Structured Data:Consent to r eceive voicemail/text messages? : YES Subjective: * Chief Complaints: * N P * Electronic signature of AUTUMN BEASLEY MD on 03/07/2025 at 09:56 AM EST Sign off status: Pending * Provider: Lawson BEASLEY MD Date: 04/30/2023 Generated for Printi ng/Faxing/eTransmitting on: 05/07/2024 09:56 AM EST
--- OUTSIDE RECORDS SUMMARY | 2024-03-24 03:45 | XMS_ITS ---
Author Organization [employer] Address [address] [place] [address] Care Team Providers Care Radiation Physicist Name Role Phone Macario Scott Primary Care Provider [phone] REASON FOR VISIT LABS VIP Medications Medication SIG (Take, Route, Fr equency, Duration) Notes Start Date End Date Status Multivitamin - 1 tablet Orally Once a day Active Social History Sex Assigned At : Social History Observation Description Sex Assigned At Female Encounters Encounter Location Date Provider Diagnosis [facility] [address] [address] 03/24/2024 Macario Scott Plan Of Treatment No Information Progress Notes * EDUARDO ABREUDOB:[birth year] (74 yo F)Acc No.[id number]:03/24/2024 Labs Patient: EDUARDO STORM Provider: Andrzej Scott MD :1950 A ge:73 Y S ex:Female Date:03/24/2024 Address:[address] [place], [place] [address] Subjective: * Chief Complaints: * 1 . LABS VIP. * Medical History: * Medications: T aking Multivitamin - Tablet 1 tablet Orally Once a day Objective: * Vitals: Assessment: Plan: * Treatment: * Images: * Electronic signature of Anoop Scott MD on 03/07/2025 at 09:54 AM EST Sign off status: Pending * Provider: Andrzej Scott MD Date: 1 05/25/2023 Generated for Tom kenny/Dania/Simiitting on: 05/07/2024 09:54 AM EST
--- OUTSIDE RECORDS SUMMARY | 2024-03-24 04:58 | XMS_ITS ---
Author Organization [facility] Address [address] [place] [address] Care Team Providers Care Sampler And Test Preparer Name Role Phone Macario Scott Primary Care Provider REASON FOR VISIT VIP Medications Medication SIG (Take, Route, Frequency, Duration) Notes Start Date End Date Status traZODone HCl 150 MG 1 tablet at bedtime Orally Once a day Active Albuterol Sulfate 108 (90 Base) MCG/ACT 1 puff as needed Inhalation every 4 hrs Active Atenolol 50 MG 1 tablet Orally Once a day; Duration: 30 day(s) 03/24/2024 Active Meclizine HCl 12.5 MG 1 tablet as needed Orally every 12 hrs Active hydrOXYzine HCl 25 MG/ML as directed Intramuscular Active Multivitamin - 1 tablet Orally Once a day Active Levothyroxine Sodium 112 MCG 1 tablet in the morning on an empty stomach Orally Once a day Active Rizatriptan Benzoate 10 MG 1 tablet Oral ly Once a day Active Cyclobenzaprine HCl 5 MG 1 tablet at bed time as needed Orally Once a day Active Social History Sex Assigned At : Social History Observation Description Sex Assigned At Female Encounters Encounter Location Date Provider Diagnosis [address] [place] [address] 03/24/2024 Macario Scott Plan Of Treatment No Information Progress Notes * EDUARDO ABREUDOB:[birth year] (74 yo F)Acc No.[id number]:03/24/2024 EKG Patient: EDUARDO STORM Provider: Andrzej Scott MD :1950 A ge:73 Y S ex:Female Date:03/24/2024 Address:[address] [place] [address] Subjective: * Chief Complaints: * 1 . VIP. * Medical History: * Medications: T aking Multivitamin - Tablet 1 tablet Orally Once a day , Taking Rizatriptan Benzoate 10 MG Tablet 1 tablet Orally Once a day , Taking Cyclobenzaprine HCl 5 MG Tablet 1 tablet at bedtime as needed Orally Once a day , Taking Levothyroxine Sodium 112 MCG Tablet 1 tablet in the morning on an empty stomach Orally Once a day , Taking traZODone HCl 150 MG Tablet 1 tablet at bedtime Orally Once a day , Taking Meclizine HCl 12.5 MG Tablet 1 tablet as needed Orally every 12 hrs , Taking hydrOXYzine HCl 25 MG/ML Solution as directed Intramuscular , Taking Albuterol Sulfate 108 (90 Base) MCG/ACT Aerosol Powder Breath Activated 1 puff as needed Inhalation every 4 hrs , Taking Atenolol 50 MG Tablet 1 tablet Orally Once a day Objective: * Vitals: Assessment: Plan: * Treatment: * Images: * Electronic signature of Anoop Scott MD on 03/07/2025 at 09:56 AM EST Sign off status: Pending * Provider: Andrzej Scott MD Date: 05/25/2023 Generated for Tom kenny/Dania/Ivette on: 05/07/2024 09:56 AM EST
--- OUTSIDE RECORDS SUMMARY | 2024-03-31 04:45 | XMS_ITS ---
Author Organization [employer] [employer] Address [address] [place] [address] Care Team Providers Care Honing Job Setter Name Role Phone Macario Scott Primary Care Provider [phone] REASON FOR VISIT SPIROMETRY VIP Medications Medication [...] Female Encounters Encounter Location Date Provider Diagnosis [facility] [address] [address] 03/31/2024 Macario Scott Plan Of Treatment No Information Progress Notes * EDUARDO ABREUDOB:[birth year] (74 yo F)Acc No.[id number]:03/31/2024 Progress Note Patient: EDUARDO STORM Provider: Andrzej Scott MD :1950 A ge:73 Y S ex:Female Date:03/31/2024 Address:[address] [place], [place] [id number] Subjective: * Chief Complaints: * 1 . [...] Date: 06/01/2023 Generated for Tom kenny/Dania/Gaysmitting on: 05/07/2024 09:56 AM EST
--- OUTSIDE RECORDS SUMMARY | 2024-06-16 03:30 | XMS_ITS ---
Author Organization [facility] Address [address] [place] [address] Care Team Providers Care Stamp Redemption Clerk Name Role Phone Macario Scott Primary Care Provider REASON FOR VISIT SPIROMETRY Social History Sex Assigned At : Social History Observation Description Sex Assigned At Female Encounters Encounter Location Date Provider Diagnosis [facility] [address] [address] 06/16/2024 Macario Scott Plan Of Treatment No Information Progress Notes * EDUARDO ABREUDOB:[birth year] (74 yo F)Acc No.[id number]:06/16/2024 Progress Note Patient: EDUARDO STORM Provider: Andrzej Scott MD :1950 A ge:73 Y S ex:Female Date:06/16/2024 Address:[address] [place] [address] Subjective: * Chief Complaints: * 1 . SPIROMETRY. * Medical History: Objective: * Vitals: Assessment: Plan: * Treatment: * Images: * Electronic signature of Anoop Scott MD on 03/07/2025 at 09:55 AM EST Sign off status: Pending * Provider: Andrzej Scott MD Date: 0 06/16/2024 Generated for Tom kenny/Dania/Simiitting on: 05/07/2024 09:55 AM EST
--- OUTSIDE RECORDS SUMMARY | 2024-06-16 04:15 | XMS_ITS ---
Author Organization [facility] Address [address] [place] [address] Care Team Providers Care Casino Porter Name Role Phone Macario Scott Primary Care Provider REASON FOR VISIT F/UP REFILL Social History Sex Assigned At : Social History Observation Description Sex Assigned At Female Encounters Encounter Location Date Provider Diagnosis [facility] [address] [address] 06/16/2024 Macario Scott Plan Of Treatment No Information Progress Notes * EDUARDO ABREUDOB:[birth year] (74 yo F)Acc No.[id number]:06/16/2024 Progress Note Patient: EDUARDO STORM Provider: Andrzej Scott MD :1950 A ge:73 Y S ex:Female Date:06/16/2024 Address:[address] [place] [address] Subjective: * Chief Complaints: * 1 . F/UP REFILL. * Medical History: Objective: * Vitals: Assessment: Plan: * Treatment: * Images: Care Plan Details* * Electronic signature of Anoop Scott MD on 03/07/2025 at 09:55 AM EST Sign off status: Pending * Provider: Andrzej Scott MD Date: 0 06/16/2024 Generated for Tom kenny/Dania/eTransmitting on: 05/07/2024 09:55 AM EST
--- OUTSIDE RECORDS SUMMARY | 2024-09-25 03:45 | XMS_ITS ---
Author Organization [facility] Address [address] [place] [address] Care Team Providers Care Wood Lather Name Role Phone Macario Scott Primary Care Provider REASON FOR VISIT LABS Social History Sex Assigned At : Social History Observation Description Sex Assigned At Female Encounters Encounter Location Date Provider Diagnosis [facility] [address] [address] 09/25/2024 Macario Scott Plan Of Treatment No Information Progress Notes * EDUARDO ABREUDOB:[birth year] (74 yo F)Acc No.[id number]:09/25/2024 Progress Note Patient: EDUARDO STORM Provider: Anrdzej Scott MD :1950 A ge:74 Y S ex:Female Date:09/25/2024 Address:[address] [place] [address] Subjective: * Chief Complaints: * 1 . LABS. * Medical History: Objective: * Vitals: Assessment: Plan: * Treatment: * Images: * Electronic signature of Anoop Scott MD on 03/07/2025 at 09:56 AM EST Sign off status: Pending * Provider: Andrzej Scott MD Date: 0 09/25/2024 Generated for Tom kenny/Dania/Simiitting on: 05/07/2024 09:56 AM EST
--- OUTSIDE RECORDS SUMMARY | 2024-10-02 03:45 | XMS_ITS ---
Author Organization [facility] Address [address] [place] [address] Care Team Providers Care Shoulder Joiner Name Role Phone Macario Scott Primary Care Provider REASON FOR VISIT Lab Result Social History Sex Assigned At : Social History Observation Description Sex Assigned At Female Encounters Encounter Location Date Provider Diagnosis [facility] [address] [address] 10/02/2024 Macario Scott Plan Of Treatment No Information Progress Notes * EDUARDO ABREUDOB:[birth year] (74 yo F)Acc No.[id number]:10/02/2024 Progress Note Patient: EDUARDO STORM Provider: Andrzej Scott MD :1950 A ge:74 Y S ex:Female Date:10/02/2024 Address:[address] [place], [place] [id number] Subjective: * Chief Complaints: * 1 . Lab Result. * Medical History: Objective: * Vitals: Assessment: Plan: * Treatment: * Images: Care Plan Details* * Electronic signature of Anoop Scott MD on 03/07/2025 at 09:56 AM EST Sign off status: Pending * Provider: Andrzej Scott MD Date: 10/02/2024 Generated for Tom kenny/Dania/Gaysmitting on: 05/07/2024 09:56 AM EST
[2025-03-07 09:26] VITALS: BP 136/82; PULSE 72; TEMP 36.4; O2SAT 100
--- NOTE | 2025-03-07 09:26 | MHC.OFFVISWM ---
VS Expanded 03/07/25 09:26 BP 136/82 Blood Pressure Location Rt brachial Blood Pressure Position Sitting Pulse 72 Pulse Source Pulse Oximeter Temp 97.5 F Temperature Source Temporal Artery Scan Pulse Oximetry 100 Oxygen Delivery Method Room Air Intake Visit Reasons: OV PO Panni + Brachioplasty 02/20/25 Allergies tramadol Allergy (Severe, Verified 02/27/25 14:00) Itching Medication List - Last Reconciled 03/07/25 by YOUNG Goins atenolol 50 mg PO DAILY Held on 06/18/23. Instructions: Resume on 06/19/23. Check your blood pressure every morning as soon as you wake up and send it to Dr. Alberto. Do no take the blood pressure medication if the blood pressure is below 120/70. Wait every day to hear back from Dr. Alberto before you take the medication. sxfxjwyzbq-xfwgxsuvmtanx-qpgc 50-300-40 mg (Fioricet) 2 caps PO Q8H PRN cephalexin 500 mg PO Q12H [chair lift daily use NS] clotrimazole 1% 1 appl topical BID docusate sodium (Colace) 100 mg PO DAILY hospital bed daily miscellaneous medical supply daily use, ECO-Patch Reusable self adhesive electrodes for TENS FES/NMES multivitamin 1 tab PO DAILY ondansetron HCl 4 mg PO Q12H rizatriptan take 1 tab at onset of headache; if no relief may repeat 1 tab after at least 2 hrs; max = 3 tabs/24 hr PO HPI Comments Details: 74 year old woman s/p panniculectomy and bilateral brachioplasty 02/20/2025. 2 weeks postop. s/p LSG 06/16/2023 VNA for dressing changes. She reports irritation and blisters from the tape. Drain in place, she reports moderate serosanguineous output. approx 20 per day but today there are 20cc in bulb and she reports she emptied last night. Compliant with abd binder. Compliant with meal plan. Taking abx. [facility] Medical History Insomnia PONV (postoperative nausea and vomiting) GERD (gastroesophageal reflux disease) Oropharyngeal dysphagia Gastritis Migraines Dyslipidemia Hypothyroidism Osteoporosis Anxiety Essential hypertension Surgical History (Updated 02/27/25 @ 14:53 by MARGOTH Mae S/P brachioplasty S/P panniculectomy History of esophagogastroduodenoscopy (EGD) H/O colonoscopy History of sleeve gastrectomy History of shoulder surgery History of section History of nasal surgery History of surgery History of carpal tunnel surgery History of neck surgery Family History Father Cancer of prostate Mother HTN (hypertension) Maternal Grandmother Stroke Asthma Brother Substance use disorder Social History Household Members: Spouse Caregiver staying overnight: No Housing: Apartment Are you a primary occasional caregiver to a significant other at home: No Do you presently have 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 or 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) 75 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 or older and lives alone: No Alcohol intake: never Patient Tobacco Use Status: Former Tobacco user Tobacco use type: Cigarette e-Cigarette/Vaping Use: Never Used Second Hand Smoke Exposure: No service: No Current occupational status: retired Cognitive needs: No Hearing needs: No Vision needs: No Physical Exam Vital Signs: Last Vital Signs Temp 97.5 F 03/07/25 09:26 Pulse 72 03/07/25 09:26 BP 136/82 03/07/25 09:26 Pulse Ox 100 03/07/25 09:26 Oxygen Delivery Method Room Air 03/07/25 09:26 Const General: cooperative, comfortable and no acute distress Orientation/consciousness: patient oriented x3 GI Other: soft, nontender, nondistended panniculectomy incisions healing well without erythema or drainage Skin Other: brachioplasty incisions healing well without erythema or open areas Neuro General: patient oriented x3 Assessment & Plan Assessment & Plan (1) S/P laparoscopic sleeve gastrectomy: Comment: june 2023 Code(s): Z98.84 - Bariatric surgery status Category: Medical (2) Overweight: Code(s): E66.3 - Overweight Category: Medical (3) S/P panniculectomy: Code(s): Z98.890 - Other specified postprocedural states Category: Medical Plan Continue high protein diet. ABX keflex 500 BID x 2 weeks, extended as needed?(at least until drain comes out plus 1 week).? Drain out after consistently 20 mL or less daily.? Likely can remove next week if output remains low. Abdominal binder at all times except for care x 1 month?MINIMUM. If there are concerns longer.? No driving?until drain out.? No walking outside or exercise for 6 weeks minimum. Walking in the house after 1st appt okay. Assistance getting up for 4 weeks minimum.?No lifting greater than?10 pounds x 2 months and no abdominal exercises x 3 months.
--- OUTSIDE RECORDS SUMMARY | 2025-03-07 09:54 | XMS_ITS | Encounter Summary ---
Author Organization [facility] Address [address] [place] [address] Phone Care Team Providers Care Motor And Controls Tester Name Role Phone Addi Holland NP Primary Care Provider + Encounter Details Date Type Department Care Team (Late st Contact Info) Description 03/01/2023 Procedure Pass [facility] Endoscopy Admitting Dept Virtual Department [address] [place] [address] Social History Tobacco Use Types Packs/Day Years [...] on filedocumented in this encounter Care Teams Motor And Controls Tester Relationship Specialty Start Date End Date Addi Holland NP [address] [facility] [place] [address] PCP - General Nurse Practitioner 02/17/23 documented as of this encounter Additional Source Comments The information contained in this document represents components of the legal health record. It is not the complete legal health record.[facility]
--- OUTSIDE RECORDS SUMMARY | 2025-03-07 09:54 | XMS_ITS | Encounter Summary ---
Author Organization [facility] Address [address] [place] [address] Phone Care Team Providers Care Cocktail Server Name Role Phone Addi Holland NP Primary Care Provider + Encounter Details Date Type Department Care Team (Late st Contact Info) Description 03/08/2023 Procedure Pass [facility] Endoscopy Admitting Dept Virtual Department [address] [place] [address] Social History Tobacco Use Types Packs/Day Years [...] on filedocumented in this encounter Care Teams Cocktail Server Relationship Specialty Start Date End Date Addi Holland NP [address] [facility] [address] PCP - General Nurse Practitioner 02/17/23 documented as of this encounter Additional Source Comments The information contained in this document represents components of the legal health record. It is not the complete legal health record.[facility]
--- OUTSIDE RECORDS SUMMARY | 2025-03-07 09:54 | XMS_ITS | Encounter Summary ---
Author Organization [facility] Address [address] [place] [address] Phone Care Team Providers Care Full Time Paramedic Name Role Phone Addi Holland NP Primary Care Provider + Encounter Details Date Type Department Care Team (Late st Contact Info) Description 11/02/2023 Procedure Pass [facility] Endoscopy Admitting Dept Virtual Department [address] [place] [address] Social History Tobacco Use Types Packs/Day Years [...] on filedocumented in this encounter Care Teams Full Time Paramedic Relationship Specialty Start Date End Date Addi Holland NP [address] [facility] [place] [address] PCP - General Nurse Practitioner 02/17/23 documented as of this encounter Additional Source Comments The information contained in this document represents components of the legal health record. It is not the complete legal health record.[facility]
--- OUTSIDE RECORDS SUMMARY | 2025-03-07 09:54 | XMS_ITS | Clinical Summary ---
Author Organization [facility] Address [address] [place] [address] Phone Care Team Providers Care Email Developer Name Role Phone Addi Holland NP [...] TUNNEL REL UPPER GASTROINTESTINAL ENDOSCOPY 08/18/2016 PROCEDURE: HI UPPER GI ENDOSCOPY PERFORMED; COMMENT: Erosive gastritis, [...] your loved ones. For example, child care teacher or elderly care for an older [...] mmol/L LAB CHEMISTRY METHOD 09/29/2024 7:[address] [facility] Potassium 4.3 3.5 - 5.5 mmol/L LAB CHEMISTRY METHOD 09/29/2024 7:[address] [facility] Chloride 100 96 - 110 mmol/L LAB CHEMISTRY METHOD 09/29/2024 7:[address] [facility] CO2 33(H) 21 - 32 mmol/L LAB CHEMISTRY METHOD 09/29/2024 7:[address] [facility] Anion Gap 4 3 - 11 LAB CHEMISTRY METHOD 09/29/2024 7:[address] [facility] Glucose 101(H) 70 - 100 mg/dL LAB CHEMISTRY METHOD 09/29/2024 7:[address] [facility] BUN 17 5 - 25 mg/dL LAB CHEMISTRY METHOD 09/29/2024 7:[address] [facility] Creatinine 0.76 0.50 - 1.10 mg/dL LAB CHEMISTRY METHOD 09/29/2024 7:[address] [facility] eGFR 83 >=60 mL/min/1. 73m2 LAB CHEMISTRY METHOD 09/29/2024 7:[address] [facility] Comment:Calculation based on the Chronic Kidney Disease Epidemiology Collaboration (CKD-EPI) equation refit without adjustment for race. BUN/Creatinine Ratio 22.4 LAB CHEMISTRY METHOD 09/29/2024 7:[address] [facility] Calcium 9.2 8.5 - 10.5 mg/dL LAB CHEMISTRY METHOD 09/29/2024 7:[address] [facility] Blood Venous blood specimen / Unknown Venipuncture / Unknown 09/29/2024 5:58 AM EDT 09/29/2024 6:12 AM EDT Katelyn VIDAL LAB BLOOD ORDERABLES Hoa l Result [facility] [address] [place] [address], [place] [phone] * (ABNORMAL) Lipid panel with reflex to direct LDL (09/27/2024 10:20 AM EDT) Cholesterol 234(H) 0 - 200 mg/dL LAB CHEMISTRY METHOD 09/27/2024 12:46 PM EDT [facility] Triglycerides 71 0 - 150 mg/dL LAB CHEMISTRY METHOD 09/27/2024 12:46 PM EDT [facility] HDL 79 >=40 mg/dL LAB CHEMISTRY METHOD 09/27/2024 12:46 PM EDT [facility] LDL Calculated 141(H) 0 - 100 mg/dL LAB CHEMISTRY METHOD 09/27/2024 12:46 PM EDT [facility] VLDL Cholesterol Koby 14.2 mg/dL LAB CHEMISTRY METHOD 09/27/2024 12:46 PM EDT [facility] Non HDL Chol. (LDL+VLDL) 155(H) <145 mg/dL LAB CHEMISTRY METHOD 09/27/2024 12:46 PM EDT [facility] Chol/HDL Ratio 3.0 0.0 - 4.4 LAB CHEMISTRY METHOD 09/27/2024 12:46 PM EDT [facility] Blood Venous blood specimen / Unknown Venipuncture / Unknown 09/27/2024 10:20 AM EDT 09/27/2024 10:25 AM EDT Katelyn VIDAL LAB BLOOD ORDERABLES Hoa l Result [facility] [address] [place] [address], [place] [phone] * SCR MAMMO BI INCL CAD (06/28/2019 [...] AM EDT Narrative 06/22/2017 1:56 PM EDT [facility] Diagnostic Imaging Department [address] [place] [address] Patient: EDUARDO ENGEL /Age/Sex: 1950 - 66 - F Unit#: [id number] Location/Status: SPDIMAM/REG CLI Mnemonic/Ordering Site: MAMDEXAAX/SPMAM Ordering Physician: LITA TORRES MD [facility] Dexa Axial Skeleton - 06/22/17729 [facility] Dexa Axial Skeleton INDICATION: POST MENOPAUSE [...] placing the patient at risk for fracture. 457[address] A report detailing these results has been enclosed. Dictating Physician: BEN FREDERICK MD Electronically Signed by: BEN FREDERICK MD Dic Date/Time: 06/22/17 1353 Sign date/Time: 06/22/17 1356 Procedure Note Ben Frederick MD - 03/31/2022 [facility] Diagnostic Imaging Department [address] [place] [address] Patient: JONAH NAGYEDUARDO /Age/Sex: 1950 - 66 -F Unit#: [id number] Location/Status: SPDIMAM/REG CLI Mnemonic/Ordering Site: MAMDEXAAX/SPMAM Ordering Physician: LITA TORRES MD [facility] Dexa Axial Skeleton - 06/22/17729 [facility] Dexa Axial Skeleton INDICATION: POST MENOPAUSE [...] osteoporosis, placing the patient at risk forfracture. [address] A report detailing these results has been enclosed. Dictating Physician: BEN FREDERICK MD Electronically Signed by: BEN FREDERICK MD Dic Date/Time: 06/22/17 1351 Sign date/Time: 06/22/17 1356 Lita Torres MD IMG BI PROCEDURES Final Resu lt from Last 3 Months or Most Recently Relevant to Health Maintenance Insurance [address] [place] [address] MEDICARE Member Subscriber Plan / Payer (Ef fective 2024-Present) Name:EDUARDO ABREU Relation to Subscriber:Self Name:Eduardo Engel Payer ID:[id number] Group ID:[id number] Type:Not on file Address: [address] [facility] [place] [address] Advance Directives * Full Code - Default [...] currently active code status orders. Care Teams Email Developer Relationship Specialty Start Date End Date Addi Holland NP [address], [place] PCP - General Family Medicine 03/04/21
--- OUTSIDE RECORDS SUMMARY | 2025-03-07 09:54 | XMS_ITS | Patient Health Record ---
Author Organization [facility] Address [address] [place] [address] Care Team Providers Care Diamond Setter Apprentice Name Role Phone Macario Scott Primary Care Provider Allergies Allergen (clinical drug ingredient) Drug/Non Drug Allergy documented on EMR Reaction Allergy Type Onset Date Status tramadol Tramadol rash Drug Allergy Active Results Component Value Reference Range Notes Cardiovascular Risk Assessme nt Reviewed date:04/06/2024 12:00:17 PM Interpretation: Performing Lab:[facility] [address] [id number], Phone - [phone], Director Paulette Giron Notes/Report: Interpretation Note Supplemental report is available. PDF . EKG Electrocardiogram Reviewed date:03/24/2024 02:15:49 PM Interpretation: Performing Lab: Notes/Report: TSH reflex to T4 Reviewed date:03/31/2024 08:44:59 AM Interpretation: Performing Lab:[facility] [address] [id number], Phone - [phone], Director Paulette Giron Notes/Report: TSH 1.770 0.450-4.500 uIU/mL Occult Blood, Fecal, IA-LAB BRENNON Reviewed date:03/31/2024 08:45:03 AM Interpretation: Performing Lab:[facility], [address] [place] [id number], Phone - [phone], Director Paulette Mars Notes/Report: Occult Blood, Fecal, IA Negative Negative Microalbumin/Creatinine Rati o, Random Urine-LC Reviewed date:03/31/2024 08:45:06 AM Interpretation: Performing Lab:[facility] [address] [id number], Phone - [phone], Director Paulette GAMINOFarrier Notes/Report: Creatinine, Urine 122.7 Not Estab. mg/dL Albumin, Urine 12.5 Not Estab. ug/mL Alb/Creat Ratio 10 0-29 mg/g creat Moderately increased: 30 - 300 Normal: 0 - 29 Severely increased: >300 CBC With Differential/Platel et-LC-Q Reviewed date:03/31/2024 08:45:13 AM Interpretation: Performing Lab:[facility], [address] [place] [id number], Phone - [phone], Director - Bree Notes/Report: WBC 7.0 3.4-10.8 [...] Immature Grans (Abs) 0.0 0.0-0.1 x10E3/uL Urinalysis, Nqhmmaef-MO-R Reviewed date:03/31/2024 08:45:17 AM Interpretation: Performing Lab:[facility], [address] [place] [id number], Phone - [phone], Director - Madisyn Notes/Report: Specific Ketchum 1.020 1.005-1.030 pH 7.0 5.0-7.5 Urine-Color Yellow [...] 14+eGFR-LC-Q Reviewed date:03/31/2024 08:45:20 AM Interpretation: Performing Lab:[facility] [address] [id number], Phone - [phone], Director - MDKostasrier Notes/Report: Glucose 82 70-99 [...] Panel-Q-LC Reviewed date:03/31/2024 08:45:24 AM Interpretation: Performing Lab:[facility] [address] [id number], Phone - [phone], Director - MDFarrier Notes/Report: Cholesterol, Total 222 100-199 mg/dL Triglycerides 65 0-149 mg/dL HDL Cholesterol 76 >39 mg/dL VLDL Cholesterol Koby 11 5-40 mg/dL LDL Chol Calc (NIH) 135 0-99 mg/dL Occult Blood, Fecal, IA-LAB BR[facility] Reviewed date:05/04/2024 04:08:08 PM Interpretation: Performing Lab:[facility] [address] [id number], Phone - [phone], Director - Bree Notes/Report: Occult Blood, Fecal, IA Negative Negative TSH reflex to T4 Reviewed date:04/26/2024 08:51:11 AM Interpretation: Performing Lab:[email or web address], [address] [place] [id number], Phone - [phone], Director - Madisyn Notes/Report: TSH 3.730 0.450-4.500 uIU/mL Microalb/Creat Ratio, Timed Ur-LC Reviewed date:04/26/2024 08:51:11 AM Interpretation: Performing Lab:[facility] [address] [id number], Phone - [phone], Director - Bree Notes/Report: Ur.Collec. Interval 0 [...] nt Reviewed date:04/26/2024 08:51:11 AM Interpretation: Performing Lab:[facility] [address] [id number], Phone - [phone], Director - Bree Notes/Report: Interpretation Note Supplemental report is available. PDF . CBC With Differential/Platel et-LC-Q Reviewed date:04/26/2024 08:51:11 AM Interpretation: Performing Lab:[email or web address] [address] [id number], Phone - [phone], Director - Bree Notes/Report: WBC 5.5 3.4-10.8 [...] Immature Grans (Abs) 0.0 0.0-0.1 x10E3/uL Urinalysis, Ypfszuem-PO-V Reviewed date:04/26/2024 08:51:11 AM Interpretation: Performing Lab:[facility], [address] [place] [id number], Phone - [phone], Director - Bree Notes/Report: Specific Ketchum 1.016 1.005-1.030 pH 7.0 5.0-7.5 Urine-Color Yellow [...] 14+eGFR-LC-Q Reviewed date:04/26/2024 08:51:11 AM Interpretation: Performing Lab:[facility], [address] [place], [place] [id number], Phone - [phone], Director - Madisyn Notes/Report: Glucose 94 70-99 mg/dL BUN 14 [...] io-LC Reviewed date:04/26/2024 08:51:11 AM Interpretation: Performing Lab:[email or web address], [address] [place], [place] [id number], Phone - [phone], Director - Madisyn Notes/Report: Cholesterol, Total 232 100-199 mg/dL Triglycerides 76 0-149 mg/dL HDL Cholesterol 71 >39 mg/dL VLDL Cholesterol Koby 13 5-40 mg/dL LDL Chol Calc (NIH) 148 0-99 mg/dL LDL/HDL Ratio 2.1 0.0-3.2 ratio Avg.Risk 3.6 3.2 3X Avg.Risk 8.0 6.1 LDL/HDL Ratio 1/2 Avg.Risk 1.0 1.5 Men Women 2X Avg.Risk 6.2 5.0 Reason For Referral Reason If additional kathy ting is needed, please refer back to PCP. Please fax consult notes and/or results of procedure approved to [phone]. Thanks! ~Annual Eye Exam~ Diagnosis 1 Encounter for examin ation of eyes and vision without abnormal findings (Z01.00) [facility] Referring Provider First Name Macario Referring Provider Last Name Tyler Referring Provider Speciality General Pr actice Referred Provider [employer] Referred Provider Specialty Plant Hr Manager Clinical Notes Curt Fernandez 12/12 02:56:13 PM >GAVE PT REFERRAL SAME DAY ON 03/24/2024 Referral Priority Routine Reason Please fax consul t notes and/or results of procedure approved to [phone]. Thanks! CONSULT ONLY - MANAGED CARE ~Annual Eye Exam~ Diagnosis 1 Encounter for examin ation of eyes and vision without abnormal findings (Z01.00) Referral Organization [facility] Referring Provider First Name Macario Referring Provider Last Name Tyler Referring Provider Speciality General June actice Referred Provider [employer] Referred Provider Specialty Plant Hr Manager Referral Priority Routine Medications Medication SIG [...] W/U Status Risk Notes Problem Mixed hyperlipidemia (117129108) Mixed hyperlipidemia (E78.2) Active confirmed Problem Chronic kidney disease due to hypertension (878227695002512) Hypertensive chronic kidney disease with stage 1 through stage 4 chronic kidney disease, or unspecified chronic kidney disease (I12.9) Active confirmed Problem Fibromyalgia (737596788) Fibromyalgia (M79.7) Active confirmed Problem Chronic insomnia (110424167) Chronic insomnia (F51.04) Active confirmed Problem Vertigo (442417127) Vertigo (R42) Active confirmed Problem Acquired hypothyroidism (352789850) Acquired hypothyroidism (E03.9) Active confirmed Problem Migraine (84176757) Migraine syndrome (G43.909) Active confirmed Problem Chronic kidney disease stage 2 (536677134) CKD (chronic kidney disease), stage II (N18.2) Active confirmed GFR 75 as per lab results from Problem Former smoker (1551401) Former smoker (Z87.891) Active confirmed Problem Moderate recurrent major depression (34512990) 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) Active confirmed Problem Uncomplicated severe persistent asthma (505128280) Severe persistent asthma without complication (J45.50) Active [...] N/A Encounters Encounter Location Date Provider Diagnosis [place] [id number] [address] 03/24/2024 Macariochrissy Scott [facility] [address] [place] [address] 03/24/2024 Macario [facility] [address] [facility] [address] [place] [address] 03/31/2024 Macario [facility] [address] [place] [address] 03/24/2024 Macariochrissy Scott Essential (primary) hypertension I10 ; Migraine [...] eyes and vision without abnormal findings Z01.[address] [address] 03/31/2024 Macario Scott Hypertensive chronic kidney disease [...] of 25.0 to 25.9 in adult Z68.25 [address] [place] [address] 04/24/2024 Macario Johnsarez Acquired hypothyroid ism E03.9 ; Encounter for general adult medical examination without abnormal findings Z00.00 ; Essential (primary) hypertension I10 and Mixed hyperlipidemia E78.[address] [address] 05/02/2024 Macario Scott Severe persistent asthma without [...] Comprehensive Metabolic Panel 14+eGFR-LC -Q 05/02/2024 Urinalysis, Oithtmpv-ST-F 05/02/2024 CBC With Differential/Nskxwlfy-GI-P 04/13 Mammo SCREENING MAMMO DIGITAL, SOHEILA 05/02 Mammo SCREENING MAMMO DIGITAL, SOHEILA 03/24 CHEST X-RAY (PA/LATERAL) 03/24/2024 CHEST X-RAY (PA/LATERAL) 05/02/2024 Future Test Test Name Order Date Lipid Panel With LDL/HDL Ratio-LC 2024 Comprehensive Metabolic Panel 14+eGFR-LC -Q 09/25/2024 Urinalysis, Lslozgkm-PY-B 09/25/2024 CBC With Differential/Xfvnfdpd-JM-B 09/10 Insurance Providers Payer Name Payer Address Payer Phone Subscriber Number Group Number Insured Name Patient Relationship to Insured Coverage Start Date Coverage End Date [employer] [address] [address] [place] [phone] [id number] [place], [place] Self - patient is the insured Medical (General) History Medical History History ICD Code hyperension asthma sinusitis migraines thyroid Surgical History Surgery Date(Month/Year) hystrectomy total 1996 right leg n/a nose n/a carpal tunel on both hands n/a
--- OUTSIDE RECORDS SUMMARY | 2025-03-07 09:56 | XMS_ITS | Patient Health Record ---
Author Organization [facility] Address [address] [place] [address] Care Team Providers Care Nut Feeder Name Role Phone AUTUMN PADILLA Primary Care [...] 90 days Active Vitamin A 3 MG (50560 UT) Capsule 1 capsule with food or [...] W/U Status Risk Notes Problem Opioid abuse (7290978) Opioid abuse, uncomplicated (F11.10) Active confirmed Acetaminophen -codeine 300 mg 1 tab since 11/2023 Consult notes 02/29/2024 Medical Record page 05/26 Problem Severe major depression, single episode, without psychotic features (16097373) Major depressive disorder, single episode, 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) Active confirmed PHQ-9 score 20 Severe Depression Problem Insomnia (623637998) Insomnia (G47.00) Active confirmed Problem Osteoporosis (14480153) Osteoporosis (M81.0) Active confirmed Problem Moderate recurrent major depression (62739292) 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 Active confirmed PHQ-9 score 20 Severe Depression Date 02/29/2024 Jack Family page 5 the patient has Moderate recurrent major depression Problem Gastroesophageal reflux disease (613324236) GERD (K21.9) Active confirmed Plan Of Treatment Pending Test Test Name Order Date CBC with Differential & Platelets (01193 9) [facility] 02/29/2024 TSH & Free T4 (190937) [facility] UA Urinalysis with Reflex to Culture (91 6488) [facility] 02/29/2024 CMP Comp. Metabolic Panel (14) (328405) [facility] 02/29/2024 Lipid Panel (376132) [facility] 02/29/2024 Hemoglobin A1c 02/29/2024 Insurance Providers Payer Name Payer Address Payer Phone Subscriber Number Group Number Insured Name Patient Relationship to Insured Coverage Start Date Coverage End Date [facility] [address] [place] [address] [id number] Marie Engel Self - patient is the insured 4 4 Medical (General) History Medical History History ICD Code Insomnia Esophageal reflux oropharyngeal dyspnea Gastritis migraine dyslipidemia hypothyroidism osteoporosis anxiety essential hypertension Surgical History Surgery Date(Month/Year) shoulder surgery c section x2 hysterectomy nasal surgery carpal tunnel leg surgery left x2 NECK SURGERY
--- OUTSIDE RECORDS SUMMARY | 2025-03-07 09:57 | XMS_ITS | Clinical Summary ---
Author Organization [facility] Address [address] [address] Phone Care Team Providers Care Operating System Designer Name Role Phone Addi Holland NP Primary [...] MEDICARE REPLACEMENT MEDICARE PART A & B [address] [place], [place] [address] MEDICARE REPLACEMENT MEDICARE PART A & B MEDICARE PART A & B Member Subscriber Plan / Payer (Ef fective 2023-Present) Name:Marie Mckenzie Member ID:[id number] Relation to Subscriber:Self Name:Marie Mckenzie Subscriber ID:[id number] Payer ID:[id number] Group ID:Not on file Type:Medicare Address: Rest Devices [facility] [address] [address] MEDICARE PART A & B [facility] MEDICARE REPLACEMENT [place] [id number] MEDICARE PART A & B Care Teams Operating System Designer Relationship Specialty Start Date End Date Addi Holland NP [address] [place] [address] PCP - General Nurse Practitioner 02/17/23 Additional Source Comments The information contained in this document represents components of the legal health record. It is not the complete legal health record.[facility]
== END 2025-03-07 10:05 | disposition home or self-care (01) ==
PROVIDERS: PCP Nurse Practitioner Family; Visit Provider Physician Assistant Surgical
DX: E66.3 Overweight (principal); Z68.25 Body mass index [BMI] 25.0-25.9, adult; Z98.890 Other specified postprocedural states
CPT/HCPCS: 99024

== ENCOUNTER 2025-03-14 13:44 | Outpatient (AMB) | payer OTHER, SELFPAY ==
--- OUTSIDE RECORDS SUMMARY | 2024-01-28 05:15 | XMS_ITS ---
Author Organization [facility] Address [address] [place] [address] Care Team Providers Care Statistical Typist Name Role Phone AUTUMN PADILLA Primary Care Provider REASON FOR VISIT Courtesy Visit Vital Signs Temperature 97.6 degrees Fahrenheit 01/28/20 24 Respiratory Rate 20 /min 01/28/2024 Height 5'2 in 01/28/2024 Weight 145 lbs 01/28/2024 BMI 26.52 kg/m2 01/28/2024 Oximetry 99 01/28/2024 Blood pressure systolic 120 01/28/20 24 Blood pressure diastolic 81 024 Encounters Encounter Location Date Provider Diagnosis [facility] [address] [place] [address] 01/28/2024 AUTUMN BEASLEY Plan Of Treatment No Information Progress Notes * LOIS NAGY MarieDO B:1950 (74 yo F)Acc No.[id number]:01/28/2024 Patient: Lawson janayshira Marie Nagy Provider: Lawson BEASLEY MD :1950 A ge:73 Y S ex:Female Date:01/28/2024 Phone: Address:[address] [place] [phone] Structured Data:Consent to r eceive voicemail/text messages? : YES Subjective: * Chief Complaints: * C ourtesy Visit Objective: * Vitals: I nitials: AM, BP sittin/81, RR:20/min, Oxygen sat %:99, Pulse sittin, Temp:97.6F, Wt:145lbs, Ht-in: 5'2 , BMI:26.52Index, Pain scale:01-10. Plan: * Procedure Codes: 3 074F SYST BP < 130 [id number] DIAST BP 80-89 MM HG Billing Information: * Procedure Codes: 3074F SYST BP < 130 mmHg. 3079F DIAST BP 80-89 MM HG. * Electronic signature of AUTUMN BEASLEY MD on 03/14/2025 at 04:26 PM EST Sign off status: Pending * Provider: Lawson BEASLEY MD Date: 1 Generated for Tom kenny/Dania/Simiitting on: 1 05/15/2024 04:26 PM EST
--- OUTSIDE RECORDS SUMMARY | 2024-02-28 04:15 | XMS_ITS ---
Author Organization [facility] Address [address] [place] [address] Care Team Providers Care Ancillary Services Manager Therapy Name Role Phone AUTUMN PADILLA Primary Care Provider REASON FOR VISIT new patient Encounters Encounter Location Date Provider Diagnosis [facility] [address] [place] [address] 02/28/2024 AUTUMN BEASLEY Plan Of Treatment No Information Progress Notes * Marie ENGELDO B:1950 (74 yo F)Acc No.[id number]:02/28/2024 Patient: Lawson janayshira Marie Nagy Provider: Lawson BEASLEY MD :1950 A ge:73 Y S ex:Female Date:02/28/2024 Phone: Address:[address] [place], [place] [phone] Structured Data:Consent to r eceive voicemail/text messages? : YES Subjective: * Chief Complaints: * N ew patient * Electronic signature of AUTUMN BEASLEY MD on 03/14/2025 at 04:26 PM EST Sign off status: Pending * Provider: Lawson BEASLEY MD Date: 04/29/2023 Generated for Printi ng/Faxing/eTransmitting on: 05/15/2024 04:26 PM EST
--- OUTSIDE RECORDS SUMMARY | 2024-02-28 04:15 | XMS_ITS ---
Author Organization [facility] Address [address] [place] [address] Care Team Providers Care Payroll Services Analyst Name Role Phone AUTUMN PADILLA Primary Care Provider REASON FOR VISIT new patient, Please request prev medical records Encounters Encounter Location Date Provider Diagnosis [facility] [address] [place] [address] 02/28/2024 AUTUMN BEASLEY Plan Of Treatment No Information Progress Notes * Marie ENGELDO B:1950 (74 yo F)Acc No.[id number]:02/28/2024 Patient: Marie Sterling Provider: Lawson BEASLEY MD :1950 A ge:73 Y S ex:Female Date:02/28/2024 Phone: Address:[address] [place], [place] [phone] Structured Data:Consent to r eceive voicemail/text messages? : YES Subjective: * Chief Complaints: * N ew patientPlease request prev medical records Billing Information: * Procedure Codes: * Electronic signature of AUTUMN BEASLEY MD on 03/14/2025 at 04:25 PM EST Sign off status: Pending * Provider: Lawson BEASLEY MD Date: 04/29/2023 Generated for Tom kenny/Dania/eTransmitting on: 05/15/2024 04:25 PM EST
--- OUTSIDE RECORDS SUMMARY | 2024-02-29 05:00 | XMS_ITS ---
Author Organization [facility] Address [address] [place] [address] Care Team Providers Care Maritime Engineer Name Role Phone AUTUMN PADILLA Primary Care Provider REASON FOR VISIT CLIENT SERVICES MANAGER Encounters Encounter Location Date Provider Diagnosis [facility] [address] [place] [address] 02/29/2024 AUTUMN BEASLEY Plan Of Treatment No Information Progress Notes * Marie ENGELDO B:1950 (74 yo F)Acc No.[id number]:02/29/2024 Patient: Lawson kapoor YakovMarie Provider: Lawson BEASLEY MD :1950 A ge:73 Y S ex:Female Date:02/29/2024 Phone: Address:[address] [place], [place] [phone] Structured Data:Consent to r eceive voicemail/text messages? : YES Subjective: * Chief Complaints: * N P * Electronic signature of AUTUMN BEASLEY MD on 03/14/2025 at 04:26 PM EST Sign off status: Pending * Provider: Lawson BEASLEY MD Date: 04/30/2023 Generated for Printi ng/Faxing/eTransmitting on: 05/15/2024 04:26 PM EST
--- OUTSIDE RECORDS SUMMARY | 2024-03-24 03:45 | XMS_ITS ---
Author Organization [employer]. Address [address] [place] [address] Care Team Providers Care Nutrition Services Associate Name Role Phone Macario Scott Primary Care Provider REASON FOR VISIT LABS VIP Medications Medication SIG (Take, Route, Fr equency, Duration) Notes Start Date End Date Status Multivitamin - 1 tablet Orally Once a day Active Social History Sex Assigned At : Social History Observation Description Sex Assigned At Female Encounters Encounter Location Date Provider Diagnosis [facility] [address] [address] 03/24/2024 Macario Scott Plan Of Treatment No Information Progress Notes * EDUARDO ABREUDOB:[birth year] (74 yo F)Acc No.[id number]:03/24/2024 Labs Patient: EDUARDO STORM Provider: Andrzej Scott MD :1950 A ge:73 Y S ex:Female Date:03/24/2024 Address:[address] [place], [place] [address] Subjective: * Chief Complaints: * 1 . LABS VIP. * Medical History: * Medications: T aking Multivitamin - Tablet 1 tablet Orally Once a day Objective: * Vitals: Assessment: Plan: * Treatment: * Images: * Electronic signature of Anoop Scott MD on 03/14/2025 at 04:25 PM EST Sign off status: Pending * Provider: Andrzej Scott MD Date: 05/25/2023 Generated for Tom kenny/Dania/Simiitting on: 1 05/15/2024 04:25 PM EST
--- OUTSIDE RECORDS SUMMARY | 2024-03-31 04:45 | XMS_ITS ---
Author Organization [employer] Address [address] [place] [address] Care Team Providers Care Back End Engineer Name Role Phone Macario Scott Primary Care Provider REASON FOR VISIT SPIROMETRY VIP Medications Medication SIG (Take, Route, Frequency, Duration) Notes Start Date End Date Status hydrOXYzine HCl 25 MG/ML as directed Intramuscular Active Albuterol Sulfate 108 (90 Base) MCG/ACT 1 puff as needed Inhalation every 4 hrs Active Topiramate 100 MG 1 tablet Orally Once a day; Duration: 90 days 03/24/2024 Active Rosuvastatin Calcium 10 MG 1 tablet Oral ly Once a day; Duration: 90 days 03/24/2024 Active Atenolol 50 MG 1 tablet Orally Once a day; Duration: 30 day(s) 03/24/2024 Active traZODone HCl 150 MG 1 tablet at bedtime Orally Once a day Active Levothyroxine Sodium 112 MCG 1 tablet in the morning on an empty stomach Orally Once a day Active Cyclobenzaprine HCl 5 MG 1 tablet at bed time as needed Orally Once a day Active Meclizine HCl 12.5 MG 1 tablet as needed Orally every 12 hrs Active Rizatriptan Benzoate 10 MG 1 tablet Oral ly Once a day Active Multivitamin - 1 tablet Orally Once a day Active Social History Sex Assigned At : Social History Observation Description Sex Assigned At Female Encounters Encounter Location Date Provider Diagnosis [facility] [address] [address] 03/31/2024 Macario Scott Plan Of Treatment No Information Progress Notes * EDUARDO ABREUDOB:[birth year] (74 yo F)Acc No.[id number]:03/31/2024 Progress Note Patient: EDUARDO STORM Provider: Andrzej Scott MD :1950 A ge:73 Y S ex:Female Date:03/31/2024 Address:[address] [place], [place] [id number] Subjective: * Chief Complaints: * 1 . SPIROMETRY VIP. * Medical History: * Medications: T [...] tablet Orally Once a day , Taking Rosuvastatin Calcium 10 MG Tablet 1 tablet Orally Once a day , Taking Topiramate 100 MG Tablet 1 tablet Orally Once a day Objective: * Vitals: Assessment: Plan: * Treatment: * Images: * Electronic signature of Anoop Scott MD on 03/14/2025 at 04:27 PM EST Sign off status: Pending * Provider: Andrzej Scott MD Date: 06/01/2023 Generated for Tom kenny/Dania/Gaysmitting on: 05/15/2024 04:27 PM EST
--- OUTSIDE RECORDS SUMMARY | 2024-06-16 03:30 | XMS_ITS ---
Author Organization [facility] Address [address] [place] [address] Care Team Providers Care Medical Malpractice Paralegal Name Role Phone Macario Scott Primary Care Provider REASON FOR VISIT SPIROMETRY Social History Sex Assigned At : Social History Observation Description Sex Assigned At Female Encounters Encounter Location Date Provider Diagnosis [facility] [address] [address] 06/16/2024 Macario Scott Plan Of Treatment No Information Progress Notes * EDUARDO ABRUEDOB:[birth year] (74 yo F)Acc No.[id number]:06/16/2024 Progress Note Patient: EDUARDO STORM Provider: Andrzej Scott MD :1950 A ge:73 Y S ex:Female Date:06/16/2024 Address:[address] [place] [address] Subjective: * Chief Complaints: * 1 . SPIROMETRY. * Medical History: Objective: * Vitals: Assessment: Plan: * Treatment: * Images: * Electronic signature of Anoop Scott MD on 03/14/2025 at 04:26 PM EST Sign off status: Pending * Provider: Andrzej Scott MD Date: 0 06/16/2024 Generated for Tom kenny/Dania/Simiitting on: 05/15/2024 04:26 PM EST
--- OUTSIDE RECORDS SUMMARY | 2024-06-16 04:15 | XMS_ITS ---
Author Organization [facility] Address [address] [place] [address] Care Team Providers Care Saw Offbearer Name Role Phone Macario Scott Primary Care Provider [phone] REASON FOR VISIT F/UP REFILL Social History Sex Assigned At : Social History Observation Description Sex Assigned At Female Encounters Encounter Location Date Provider Diagnosis [facility] [address] [address] 06/16/2024 Macario Scott Plan Of Treatment No Information Progress Notes * EDUARDO ABREUDOB:[birth year] (74 yo F)Acc No.[id number]:06/16/2024 Progress Note Patient: EDUARDO STORM Provider: Andrzej Scott MD :1950 A ge:73 Y S ex:Female Date:06/16/2024 Address:[address] [place] [address] Subjective: * Chief Complaints: * 1 . F/UP REFILL. * Medical History: Objective: * Vitals: Assessment: Plan: * Treatment: * Images: Care Plan Details* * Electronic signature of Anoop Scott MD on 03/14/2025 at 04:26 PM EST Sign off status: Pending * Provider: Andrzej Scott MD Date: 0 06/16/2024 Generated for Tom kenny/Dania/eTransmitting on: 05/15/2024 04:26 PM EST
--- OUTSIDE RECORDS SUMMARY | 2024-09-25 03:45 | XMS_ITS ---
Author Organization [facility] Address [address] [place] [address] Care Team Providers Care Plain Goods Hemmer Name Role Phone Macario Scott Primary Care Provider [phone] REASON FOR VISIT LABS Social History Sex Assigned At : Social History Observation Description Sex Assigned At Female Encounters Encounter Location Date Provider Diagnosis [facility] [address] [address] 09/25/2024 Macario Scott Plan Of Treatment No Information Progress Notes * EDUARDO ABREUDOB:[birth year] (74 yo F)Acc No.[id number]:09/25/2024 Progress Note Patient: EDUARDO STORM Provider: Andrzej Scott MD :1950 A ge:74 Y S ex:Female Date:09/25/2024 Address:[address] [place] [address] Subjective: * Chief Complaints: * 1 . LABS. * Medical History: Objective: * Vitals: Assessment: Plan: * Treatment: * Images: * Electronic signature of Anoop Scott MD on 03/14/2025 at 04:27 PM EST Sign off status: Pending * Provider: Andrzej Scott MD Date: 0 09/25/2024 Generated for Tom kenny/Dania/Simiitting on: 05/15/2024 04:27 PM EST
--- OUTSIDE RECORDS SUMMARY | 2024-10-02 03:45 | XMS_ITS ---
Author Organization [facility] Address [address] [place] [address] Care Team Providers Care Screw Machine Setter Name Role Phone Macario Scott Primary Care Provider REASON FOR VISIT Lab Result Social History Sex Assigned At : Social History Observation Description Sex Assigned At Female Encounters Encounter Location Date Provider Diagnosis [facility] [address] [address] 10/02/2024 Macario Scott Plan Of Treatment No Information Progress Notes * EDUARDO ABREUDOB:[birth year] (74 yo F)Acc No.[id number]:10/02/2024 Progress Note Patient: EDUARDO STORM Provider: Andrzej Scott MD :1950 A ge:74 Y S ex:Female Date:10/02/2024 Address:[address] [place] [address] Subjective: * Chief Complaints: * 1 . Lab Result. * Medical History: Objective: * Vitals: Assessment: Plan: * Treatment: * Images: Care Plan Details* * Electronic signature of Anoop Scott MD on 03/14/2025 at 04:27 PM EST Sign off status: Pending * Provider: Andrzej Scott MD Date: 0 10/02/2024 Generated for Tom kenny/Dania/Gaysmitting on: 05/15/2024 04:27 PM EST
--- NOTE | 2025-03-14 14:26 | MHC.OFFVISWM ---
VS Expanded 03/14/25 14:38 BP 131/86 Blood Pressure Location Lt brachial Blood Pressure Position Sitting Pulse 80 Pulse Source Pulse Oximeter Temp 97.1 F Temperature Source Temporal Artery Scan Pulse Oximetry 99 Oxygen Delivery Method Room Air Intake Visit Reasons: OV PO Panni + Brachioplasty 02/20/25 Crackling Press Operator Required: No Accompanied by: Other Relationship Allergies adhesive tape Allergy (Severe, Verified 03/14/25 14:37) Itching tramadol Allergy (Severe, Verified 03/14/25 14:37) Itching Medication List - Last Reconciled 03/14/25 by YOUNG Goins mxtsytpvkk-bgwaundpsilnm-gaur 50-300-40 mg (Fioricet) 2 caps PO Q8H PRN cephalexin 500 mg PO Q12H [chair lift daily use NS] hospital bed daily miscellaneous medical supply daily use, ECO-Patch Reusable self adhesive electrodes for TENS FES/NMES multivitamin 1 tab PO DAILY rizatriptan take 1 tab at onset of headache; if no relief may repeat 1 tab after at least 2 hrs; max = 3 tabs/24 hr PO HPI Comments Details: 74 year old woman s/p panniculectomy and bilateral brachioplasty 02/20/2025. 3 weeks postop. s/p LSG 06/16/2023 VNA for dressing changes. She reports irritation and blisters from the tape. Drain in place, with 10cc output the last 3 days and 20cc or less the rest of the week since last visit. Compliant with abd binder. Compliant with meal plan. Taking abx. PFSH Medical History Insomnia PONV (postoperative nausea and vomiting) GERD (gastroesophageal reflux disease) Oropharyngeal dysphagia Gastritis Migraines Dyslipidemia Hypothyroidism Osteoporosis Anxiety Essential hypertension Surgical History (Updated 02/27/25 @ 14:53 by Jonna Adkins CNP) S/P brachioplasty S/P panniculectomy History of esophagogastroduodenoscopy (EGD) H/O colonoscopy History of sleeve gastrectomy History of shoulder surgery History of section History of nasal surgery History of surgery History of carpal tunnel surgery History of neck surgery Family History Father Cancer of prostate Mother HTN (hypertension) Maternal Grandmother Stroke Asthma Brother Substance use disorder Social History Household Members: Spouse Caregiver staying overnight: No Housing: Apartment Are you a primary critical care clinical nurse specialist to a significant other at home: No Do you presently have 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 or other home services: Yes (WASTEWATER DESIGN ENGINEER) 75 years or older and lives alone: No Alcohol intake: never Patient Tobacco Use Status: Former Tobacco user Tobacco use type: Cigarette e-Cigarette/Vaping Use: Never Used Second Hand Smoke Exposure: No service: No Current occupational status: retired Cognitive needs: No Hearing needs: No Vision needs: No Physical Exam Vital Signs: Last Vital Signs Temp 97.1 F 03/14/25 14:38 Pulse 80 03/14/25 14:38 BP 131/86 03/14/25 14:38 Pulse Ox 99 03/14/25 14:38 Oxygen Delivery Method Room Air 03/14/25 14:38 Const General: cooperative, comfortable and no acute distress Orientation/consciousness: patient oriented x3 GI Other: soft, nontender, nondistended, incision healing well, drain output SS with 10cc in bulb (last emptied yest morning) Skin Other: brachioplasty incisions c/d/i Neuro General: patient oriented x3 Assessment & Plan Assessment & Plan (1) S/P laparoscopic sleeve gastrectomy: Comment: june 2023 Code(s): Z98.84 - Bariatric surgery status Category: Medical (2) S/P panniculectomy: Code(s): Z98.890 - Other specified postprocedural states Category: Medical (3) S/P brachioplasty: Code(s): Z98.890 - Other specified postprocedural states Category: Medical Plan Continue high protein diet. ABX keflex 500 BID x 1 more week. Drain removed in office today. Abdominal binder at all times except for care x 1 month?MINIMUM. If there are concerns longer.? May drive.? No walking outside or exercise for 6 weeks minimum. Walking in the house okay. Assistance getting up for 4 weeks minimum.?No lifting greater than?10 pounds x 2 months and no abdominal exercises x 3 months. Arms may remain open to air and abd with ABDs.
[2025-03-14 14:38] VITALS: BP 131/86; PULSE 80; TEMP 36.2; O2SAT 99
--- OUTSIDE RECORDS SUMMARY | 2025-03-14 16:25 | XMS_ITS | Encounter Summary ---
Author Organization [facility] Address [address] [place] [address] Phone Care Team Providers Care Regional Intermodal Truck Driver Name Role Phone Addi Holland NP Primary Care Provider + Encounter Details Date Type Department Care Team (Late st Contact Info) Description 11/02/2023 Procedure Pass [facility] Endoscopy Admitting Dept Virtual Department [address] [place] [address] Social History Tobacco Use Types Packs/Day Years [...] on filedocumented in this encounter Care Teams Regional Intermodal Truck Driver Relationship Specialty Start Date End Date Addi Holland NP 1960 [facility] [place] [address] PCP - General Nurse Practitioner 02/17/23 documented as of this encounter Additional Source Comments The information contained in this document represents components of the legal health record. It is not the complete legal health record.[facility]
--- OUTSIDE RECORDS SUMMARY | 2025-03-14 16:26 | XMS_ITS | Patient Health Record ---
Author Organization [employer] Address [address] [place] [address] Care Team Providers Care Electric Motor Tester Assembler Name Role Phone Macario Scott Primary Care Provider Allergies Allergen (clinical drug ingredient) Drug/Non Drug Allergy documented on EMR Reaction Allergy Type Onset Date Status tramadol Tramadol rash Drug Allergy Active Results Component Value Reference Range Notes Cardiovascular Risk Assessme nt Reviewed date:04/26/2024 08:51:11 AM Interpretation: Performing Lab:[facility] [address] [id number], Phone - [phone], Director - Bree Notes/Report: Interpretation Note Supplemental report is available. PDF . EKG Electrocardiogram Reviewed date:03/24/2024 02:15:49 PM Interpretation: Performing Lab: Notes/Report: TSH reflex to T4 Reviewed date:03/31/2024 08:44:59 AM Interpretation: Performing Lab:[facility] [address] [id number], Phone - [phone], - Bree Notes/Report: TSH 1.770 0.450-4.500 uIU/mL Cardiovascular Risk Assessme nt Reviewed date:04/06/2024 12:00:17 PM Interpretation: Performing Lab:[facility] [address] [id number], Phone - [phone], - Bree Notes/Report: Interpretation Note Supplemental report is available. PDF . Occult Blood, Fecal, IA-LAB BRENNON Reviewed date:03/31/2024 08:45:03 AM Interpretation: Performing Lab:[facility], [address] [place] [id number], Phone - [phone], Director - Madisyn Notes/Report: Occult Blood, Fecal, IA Negative Negative Microalbumin/Creatinine Rati o, Random Urine-LC Reviewed date:03/31/2024 08:45:06 AM Interpretation: Performing Lab:[facility] [address] [id number], Phone - [phone], Director - Bree Notes/Report: Creatinine, Urine 122.7 Not Estab. mg/dL Albumin, Urine 12.5 Not Estab. ug/mL Alb/Creat Ratio 10 0-29 mg/g creat Normal: 0 - 29 Moderately increased: 30 - 300 Severely increased: >300 CBC With Differential/Platel et-LC-Q Reviewed date:03/31/2024 08:45:13 AM Interpretation: Performing Lab:[facility], [address] [place] [id number], Phone - [phone], Director - Bree Notes/Report: WBC 7.0 3.4-10.8 [...] Immature Grans (Abs) 0.0 0.0-0.1 x10E3/uL Urinalysis, Dhjovtdw-UK-W Reviewed date:03/31/2024 08:45:17 AM Interpretation: Performing Lab:[facility], [address] [place] [id number], Phone - [phone], Director - Madisyn Notes/Report: Specific [place] 1.020 1.005-1.030 pH 7.0 5.0-7.5 Urine-Color Yellow [...] 14+eGFR-LC-Q Reviewed date:03/31/2024 08:45:20 AM Interpretation: Performing Lab:[facility] [place], [address] [place] [id number], Phone - [phone], Director - Bree Notes/Report: Glucose 82 70-99 [...] Panel-Q-LC Reviewed date:03/31/2024 08:45:24 AM Interpretation: Performing Lab:[facility] [id number], Phone - [phone], Director - Bree Notes/Report: Cholesterol, Total 222 100-199 mg/dL Triglycerides 65 0-149 mg/dL HDL Cholesterol 76 >39 mg/dL VLDL Cholesterol Koby 11 5-40 mg/dL LDL Chol Calc ([facility]) 135 0-99 mg/dL CBC With Differential/Platel et-LC-Q Reviewed date:04/26/2024 08:51:11 AM Interpretation: Performing Lab:[facility] [id number], Phone - [phone], Director - Bree Notes/Report: WBC 5.5 3.4-10.8 [...] Immature Grans (Abs) 0.0 0.0-0.1 x10E3/uL Urinalysis, Wubaoceg-CF-W Reviewed date:04/26/2024 08:51:11 AM Interpretation: Performing Lab:[facility] [id number], Phone - [phone], Director - Bree Notes/Report: Specific [place] 1.016 1.005-1.030 pH 7.0 5.0-7.5 Urine-Color Yellow [...] 14+eGFR-LC-Q Reviewed date:04/26/2024 08:51:11 AM Interpretation: Performing Lab:[facility], [address] [place] [id number], Phone - [phone], Director - MDNavarro Notes/Report: Glucose 94 70-99 mg/dL BUN 14 [...] Reviewed date:04/26/2024 08:51:11 AM Interpretation: Performing Lab:[facility], [facility] [place], [place] [id number], Phone - [phone], Director - Madisyn Notes/Report: Cholesterol, Total 232 100-199 mg/dL Triglycerides 76 0-149 mg/dL HDL Cholesterol 71 >39 mg/dL VLDL Cholesterol Koby 13 5-40 mg/dL LDL Chol Calc ([facility]) 148 0-99 mg/dL LDL/HDL Ratio 2.1 0.0-3.2 ratio LDL/HDL Ratio Men Women 1/2 Avg.Risk 1.0 1.5 Avg.Risk 3.6 3.2 2X Avg.Risk 6.2 5.0 3X Avg.Risk 8.0 6.1 Occult Blood, Fecal, IA-LAB BRENNON Reviewed date:05/04/2024 04:08:08 PM Interpretation: Performing Lab:[facility], [address] [place] [id number], Phone - [phone], Director - Bree Notes/Report: Occult Blood, Fecal, IA Negative Negative TSH reflex to T4 Reviewed date:04/26/2024 08:51:11 AM Interpretation: Performing Lab:[facility], [address] [facility], [place], [place] [id number], Phone - [phone], Director - Madisyn Notes/Report: TSH 3.730 0.450-4.500 uIU/mL Microalb/Creat Ratio, Timed Ur-LC Reviewed date:04/26/2024 08:51:11 AM Interpretation: Performing Lab:[facility], [address] [place] [id number], Phone - [phone], Director - Bree Notes/Report: Ur.Collec. Interval 0 Creatinine, Urine 86.5 Not Estab. mg/dL Albumin, Urine 3.9 Not Estab. ug/mL Alb/Creat Ratio 4.5 0.0-30.0 ug/mg creat Alb, U Excret. Rate 0.0-20.0 ug/min No to bakari volume submitted. Unable to calculate 24 hour result. Albumin,Ur mg/day TNP Unable to calculate result since non-numeric result obtained for component test. Reason For Referral Reason If additional kathy ting is needed, please refer back to PCP. Please fax consult notes and/or results of procedure approved to [phone]. Thanks! ~Annual Eye Exam~ Diagnosis 1 Encounter for examin ation of eyes and vision without abnormal findings (Z01.00) [facility] Referring Provider First Name Macario Referring Provider Last Name Tyler Referring Provider Speciality General Pr actice Referred Provider [employer] Referred Provider Specialty [employer] Driver Clinical Notes Curt Fernandez 12/12 02:56:13 PM >GAVE PT REFERRAL SAME DAY ON 03/24/2024 Referral Priority Routine Reason Please fax consul t notes and/or results of procedure approved to [phone]. Thanks! CONSULT ONLY - MANAGED CARE ~Annual Eye Exam~ Diagnosis 1 Encounter for examin ation of eyes and vision without abnormal findings (Z01.00) Referral Organization [facility] [employer] [facility] Referring Provider First Name Macario Referring Provider Last Name Tyler Referring Provider Speciality General June actice Referred Provider [employer] Referred Provider Specialty [employer] Driver Referral Priority Routine Medications Medication SIG (Take, [...] W/U Status Risk Notes Problem Mixed hyperlipidemia (537780469) Mixed hyperlipidemia (E78.2) Active confirmed Problem Chronic kidney disease due to hypertension (262688766126502) Hypertensive chronic kidney disease with stage 1 through stage 4 chronic kidney disease, or unspecified chronic kidney disease (I12.9) Active confirmed Problem Fibromyalgia (740055376) Fibromyalgia (M79.7) Active confirmed Problem Chronic insomnia (428445512) Chronic insomnia (F51.04) Active confirmed Problem Vertigo (836313497) Vertigo (R42) Active confirmed Problem Acquired hypothyroidism (130910088) Acquired hypothyroidism (E03.9) Active confirmed Problem Migraine (11387226) Migraine syndrome (G43.909) Active confirmed Problem Chronic kidney disease stage 2 (012757109) CKD (chronic kidney disease), stage II (N18.2) Active confirmed GFR 75 as per lab results from Problem Former smoker (8039193) Former smoker (Z87.891) Active confirmed Problem Moderate recurrent major depression (85686608) 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) Active confirmed Problem Uncomplicated severe persistent asthma (887837107) Severe persistent asthma without complication (J45.50) Active [...] N/A Encounters Encounter Location Date Provider Diagnosis [place] [id number] [address] 03/24/2024 Macariochrissy Scott [facility] [address] [place] [address] 03/24/2024 Macario [facility] [address] [facility] [address] [place] [address] 03/31/2024 Macario [facility] [address] [place] [address] 03/24/2024 Macariochrissy Scott Essential (primary) hypertension I10 [...] eyes and vision without abnormal findings Z01.[address] [address] 03/31/2024 Macario Scott Hypertensive chronic kidney disease [...] of 25.0 to 25.9 in adult Z68.25 [address] [place] [address] 04/24/2024 Macario [facility] Acquired hypothyroid ism E03.9 ; Encounter for general adult medical examination without abnormal findings Z00.00 ; Essential (primary) hypertension I10 and Mixed hyperlipidemia E78.[address] [address] 05/02/2024 Macario Scott Severe persistent asthma without [...] 03/24/2024 Mixed hyperlipidemia (ICD-10 - E78.2) 04/24/2024 Essential (primary) hypertension (ICD-10 - I10) 05/02/2024 Hypertensive chronic kidney disease with stage 1 through stage 4 chronic kidney disease, or unspecified chronic kidney disease (ICD-10 - I12.9) CKD Stage II due to HTN. Blood pressure control and daily exercise as tolerated is recommended. Will continue to monitor. 04/24/2024 Mixed hyperlipidemia (ICD-10 - E78.2) 05/02/2024 [...] E78.2) 05/02/2024 Migraine syndrome (ICD-10 - G43.909) 03/24/2024 Acquired hypothyroidism (ICD-10 - E03.9) 03/31/2024 Migraine syndrome (ICD-10 - G43.909) 03/31/2024 [...] to monitor. 05/02/2024 Vertigo (ICD-10 - R42) 03/31/2024 Former smoker (ICD-10 - Z87.891) Patient quit smoking 03/24/2024 Chronic insomnia (ICD-10 - F51.04) Continue treatment of Trazadone. 03/24/2024 Vertigo (ICD-10 - R42) 03/31/2024 Body mass index (BMI) of 25.0 [...] without abnormal findings (ICD-10 - Z01.00) 03/24/2024 Body mass index (BMI) of 26.0 to 26.9 in adult (ICD-10 - Z68.26) 05/02/2024 Encounter for screening mammogram for breast [...] Comprehensive Metabolic Panel 14+eGFR-LC -Q 05/02/2024 Urinalysis, Rjgzopaq-XW-R 05/02/2024 CBC With Differential/Pphruwkb-JP-D 04/13 Mammo SCREENING MAMMO DIGITAL, SOHEILA 05/02 Mammo SCREENING MAMMO DIGITAL, SOHEILA 03/24 CHEST X-RAY (PA/LATERAL) 03/24/2024 CHEST X-RAY (PA/LATERAL) 05/02/2024 Future Test Test Name Order Date Lipid Panel With LDL/HDL Ratio-LC 2024 Comprehensive Metabolic Panel 14+eGFR-LC -Q 09/25/2024 Urinalysis, Jfdaeaqt-SO-Q 09/25/2024 CBC With Differential/Cjvyudzc-NC-X 09/10 Insurance Providers Payer Name Payer Address Payer Phone Subscriber Number Group Number Insured Name Patient Relationship to Insured Coverage Start Date Coverage End Date [facility] [address] [address] [address] [place] [phone] [id number] [place] Self - patient is the insured Medical (General) History Medical History History ICD Code hyperension asthma sinusitis migraines thyroid Surgical History Surgery Date(Month/Year) hystrectomy total 1996 right leg n/a nose n/a carpal tunel on both hands n/a
--- OUTSIDE RECORDS SUMMARY | 2025-03-14 16:26 | XMS_ITS | Encounter Summary ---
Author Organization [facility] Address [address] [place] [address] Phone Care Team Providers Care Biomedical Field Service Engineer Name Role Phone Addi Holland NP Primary Care Provider + Encounter Details Date Type Department Care Team (Late st Contact Info) Description 03/08/2023 Procedure Pass [facility] Endoscopy Admitting Dept Virtual Department [address] [place] [address] Social History Tobacco Use Types Packs/Day Years [...] on filedocumented in this encounter Care Teams Biomedical Field Service Engineer Relationship Specialty Start Date End Date Addi Holland NP [address] [facility] [place] [address] PCP - General Nurse Practitioner 02/17/23 documented as of this encounter Additional Source Comments The information contained in this document represents components of the legal health record. It is not the complete legal health record.[facility]
--- OUTSIDE RECORDS SUMMARY | 2025-03-14 16:26 | XMS_ITS | Encounter Summary ---
Author Organization [facility] Address [address] [place] [address] Phone Care Team Providers Care Woods Superintendent Name Role Phone Addi Holland NP Primary Care Provider + Encounter Details Date Type Department Care Team (Late st Contact Info) Description 03/01/2023 Procedure Pass [facility] Endoscopy Admitting Dept Virtual Department [address] [place] [address] Social History Tobacco Use Types Packs/Day Years [...] on filedocumented in this encounter Care Teams Woods Superintendent Relationship Specialty Start Date End Date Addi Holland NP [address] [facility] [place] [address] PCP - General Nurse Practitioner 02/17/23 documented as of this encounter Additional Source Comments The information contained in this document represents components of the legal health record. It is not the complete legal health record.[facility]
--- OUTSIDE RECORDS SUMMARY | 2025-03-14 16:27 | XMS_ITS | Patient Health Record ---
Author Organization [facility] Address [address] [place] [address] Care Team Providers Care Sheet Rock Layer Name Role Phone AUTUMN PADILLA Primary Care [...] 90 days Active Vitamin A 3 MG (46246 UT) Capsule 1 capsule with food or [...] W/U Status Risk Notes Problem Opioid abuse (0083728) Opioid abuse, uncomplicated (F11.10) Active confirmed Acetaminophen -codeine 300 mg 1 tab since 11/2023 Consult notes 02/29/2024 Medical Record page 05/26 Problem Severe major depression, single episode, without psychotic features (04884640) Major depressive disorder, single episode, 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) Active confirmed PHQ-9 score 20 Severe Depression Problem Insomnia (508971558) Insomnia (G47.00) Active confirmed Problem Osteoporosis (49406355) Osteoporosis (M81.0) Active confirmed Problem Moderate recurrent major depression (06082760) 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 Active confirmed PHQ-9 score 20 Severe Depression Date 02/29/2024 Jack Family page 5 the patient has Moderate recurrent major depression Problem Gastroesophageal reflux disease (463568182) GERD (K21.9) Active confirmed Plan Of Treatment Pending Test Test Name Order Date CBC with Differential & Platelets (23358 9) [facility] 02/29/2024 TSH & Free T4 (700998) [facility] UA Urinalysis with Reflex to Culture (38 4279) [facility] 02/29/2024 CMP Comp. Metabolic Panel (14) (779630) [facility] 02/29/2024 Lipid Panel (543416) [facility] 02/29/2024 Hemoglobin A1c 02/29/2024 Insurance Providers Payer Name Payer Address Payer Phone Subscriber Number Group Number Insured Name Patient Relationship to Insured Coverage Start Date Coverage End Date [facility] [address] [place] [address] [phone] [id number] Marie Engel Self - patient is the insured 4 4 Medical (General) History Medical History History ICD Code Insomnia Esophageal reflux oropharyngeal dyspnea Gastritis migraine dyslipidemia hypothyroidism osteoporosis anxiety essential hypertension Surgical History Surgery Date(Month/Year) shoulder surgery c section x2 hysterectomy nasal surgery carpal tunnel leg surgery left x2 NECK SURGERY
--- OUTSIDE RECORDS SUMMARY | 2025-03-14 16:27 | XMS_ITS | Clinical Summary ---
Author Organization [facility] Address [address] [address] Phone Care Team Providers Care Writer Technical Publications Name Role Phone Addi Holland NP Primary [...] MEDICARE REPLACEMENT MEDICARE PART A & B [address] [place], [place] [address]O MEDICARE REPLACEMENT MEDICARE PART A & B MEDICARE PART A & B Member Subscriber Plan / Payer (Ef fective 2023-Present) Name:Marie Mckenzie Member ID:[id number] Relation to Subscriber:Self Name:Marie Mckenzie Subscriber ID:[id number] Payer ID:[id number] Group ID:Not on file Type:Medicare Address: Yadio [facility] [address] [address] MEDICARE PART A & B [facility] SCO MEDICARE REPLACEMENT [place] [id number] MEDICARE PART A & B Care Teams Writer Technical Publications Relationship Specialty Start Date End Date Addi Holland NP [address] [facility] [place] [address] PCP - General Nurse Practitioner 02/17/23 Additional Source Comments The information contained in this document represents components of the legal health record. It is not the complete legal health record.[facility]
== END 2025-03-14 15:06 | disposition home or self-care (01) ==
LOC: HO.HBS 13:45
PROVIDERS: PCP Nurse Practitioner Family; Visit Provider Physician Assistant Surgical
DX: Z71.3 Dietary counseling and surveillance (principal); Z98.84 Bariatric surgery status; Z98.890 Other specified postprocedural states
CPT/HCPCS: 99024

== ENCOUNTER → 2025-03-14 13:44 | Outpatient (BNVA) | payer OTHER, SELFPAY | PROVIDERS: PCP Nurse Practitioner Family; Visit Provider Physician Assistant Surgical | DX: Z48.817 Encounter for surgical aftercare following surgery on the skin and subcutaneous tissue (principal); Z79.2 Long term (current) use of antibiotics; Z98.84 Bariatric surgery status; Z98.890 Other specified postprocedural states | CPT/HCPCS: 99212 ==

== ENCOUNTER 2025-03-21 10:25 | Outpatient (AMB) | payer OTHER, SELFPAY ==
[2025-03-21 11:04] VITALS: BP 149/87; PULSE 71; TEMP 36.6; O2SAT 98; BMI 24.9
--- NOTE | 2025-03-21 11:04 | MHC.OFFVISWM ---
VS Expanded 03/21/25 11:04 BP 149/87 H Blood Pressure Location Rt brachial Blood Pressure Position Sitting Pulse 71 Pulse Source Pulse Oximeter Temp 98 F Temperature Source Temporal Artery Scan Pulse Oximetry 98 Oxygen Delivery Method Room Air Height 5 ft 2 in Weight 136 lb BMI 24.9 Body Fat % 30.0 Body Fat Mass 40.8 Fat Free Mass 95.0 Visceral Fat Rating 80.0 Body Water % 49.2 Body Water Mass 66.8 Muscle Mass/Score 90.2 Basal Metabolic Rate/Score 1,268 Intake Visit Reasons: OV PO Panni + Brachioplasty 02/20/25 Allergies adhesive tape Allergy (Severe, Verified 03/14/25 14:37) Itching tramadol Allergy (Severe, Verified 03/14/25 14:37) Itching Medication List - Last Reconciled 03/21/25 by YOUNG Goins mbalxvkmha-ikugstanmncjl-egjn 50-300-40 mg (Fioricet) 2 caps PO Q8H PRN [chair lift daily use NS] hospital bed daily miscellaneous medical supply daily use, ECO-Patch Reusable self adhesive electrodes for TENS FES/NMES multivitamin 1 tab PO DAILY rizatriptan take 1 tab at onset of headache; if no relief may repeat 1 tab after at least 2 hrs; max = 3 tabs/24 hr PO HPI Comments Details: 74 year old woman s/p panniculectomy and bilateral brachioplasty 02/20/2025. 4 weeks postop. s/p LSG 06/16/2023 VNA for dressing changes. Drain was removed last week. No fevers at home. Compliant with abd binder. Compliant with meal plan. Taking abx. PFSH Medical History Insomnia PONV (postoperative nausea and vomiting) GERD (gastroesophageal reflux disease) Oropharyngeal dysphagia Gastritis Migraines Dyslipidemia Hypothyroidism Osteoporosis Anxiety Essential hypertension Surgical History (Updated 02/27/25 @ 14:53 by Jonna Adkins CNP) S/P brachioplasty S/P panniculectomy History of esophagogastroduodenoscopy (EGD) H/O colonoscopy History of sleeve gastrectomy History of shoulder surgery History of section History of nasal surgery History of surgery History of carpal tunnel surgery History of neck surgery Family History Father Cancer of prostate Mother HTN (hypertension) Maternal Grandmother Stroke Asthma Brother Substance use disorder Social History Household Members: Spouse Housing: Apartment Are you a primary rn urgent care to a significant other at home: No Do you presently have 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 or 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) Alcohol intake: never Patient Tobacco Use Status: Former Tobacco user Tobacco use type: Cigarette e-Cigarette/Vaping Use: Never Used Second Hand Smoke Exposure: No service: No Current occupational status: retired Cognitive needs: No Hearing needs: No Vision needs: No Physical Exam Vital Signs: Last Vital Signs Temp 98 F 03/21/25 11:04 Pulse 71 03/21/25 11:04 BP 149/87 H 03/21/25 11:04 Pulse Ox 98 03/21/25 11:04 Oxygen Delivery Method Room Air 03/21/25 11:04 BMI result Body Mass Index 24.9 Const General: cooperative, comfortable and no acute distress Orientation/consciousness: patient oriented x3 GI Other: soft, nontender, nondistended, panniculectomy incision healing well, umbilicus viable Skin Other: brachioplasty incisions healing well, no erythema or open areas Neuro General: patient oriented x3 Assessment & Plan Assessment & Plan (1) S/P laparoscopic sleeve gastrectomy: Comment: june 2023 Code(s): Z98.84 - Bariatric surgery status Category: Surgical (2) S/P panniculectomy: Code(s): Z98.890 - Other specified postprocedural states Category: Surgical (3) S/P brachioplasty: Code(s): Z98.890 - Other specified postprocedural states Category: Surgical Plan Continue high protein diet. Complete abx today. Abdominal binder at all times except for care x 2 more weeks.? No walking outside or exercise for 6 weeks minimum. Walking in the house okay. Assistance getting up for 4 weeks minimum.?No lifting greater than?10 pounds x 2 months and no abdominal exercises x 3 months. RTC 2 weeks.
== END 2025-03-21 11:28 | disposition home or self-care (01) ==
LOC: HO.HBS 10:26
PROVIDERS: PCP Nurse Practitioner Family; Visit Provider Physician Assistant Surgical
DX: Z71.3 Dietary counseling and surveillance (principal); Z98.890 Other specified postprocedural states; Z90.3 Acquired absence of stomach [part of]; Z98.84 Bariatric surgery status
CPT/HCPCS: 99024

== ENCOUNTER → 2025-03-21 10:25 | Outpatient (BNVA) | payer OTHER, SELFPAY | PROVIDERS: PCP Nurse Practitioner Family; Visit Provider Physician Assistant Surgical | DX: Z48.815 Encounter for surgical aftercare following surgery on the digestive system (principal); Z98.890 Other specified postprocedural states; Z98.84 Bariatric surgery status | CPT/HCPCS: 99212 ==

== ENCOUNTER 2025-04-02 09:54 | Outpatient (AMB) | payer OTHER, SELFPAY ==
--- NOTE | 2025-04-02 10:14 | MHC.OFFVISWM ---
VS Expanded 04/02/25 10:29 BP 148/89 H Blood Pressure Location Rt brachial Blood Pressure Position Sitting Pulse 69 Pulse Source Pulse Oximeter Temp 97.2 F Temperature Source Temporal Artery Scan Pulse Oximetry 98 Oxygen Delivery Method Room Air Height 5 ft 2 in Weight 139 lb 3.2 oz BMI 25.5 Body Fat % 29.0 Body Fat Mass 0.4 Fat Free Mass 98.8 Visceral Fat Rating 8.0 Body Water % 49.8 Body Water Mass 69.2 Muscle Mass/Score 93.6 Basal Metabolic Rate/Score 1,311 Intake Visit Reasons: OV PO Panni + Brachioplasty 02/20/25 Allergies adhesive tape Allergy (Severe, Verified 04/02/25 10:31) Itching tramadol Allergy (Severe, Verified 04/02/25 10:31) Itching Medication List - Last Reconciled 04/02/25 by YOUNG Goins mnjgevzskp-thnjhahxhaivp-yjev 50-300-40 mg (Fioricet) 2 caps PO Q8H PRN [chair lift daily use NS] hospital bed daily miscellaneous medical supply daily use, ECO-Patch Reusable self adhesive electrodes for TENS FES/NMES multivitamin 1 tab PO DAILY rizatriptan take 1 tab at onset of headache; if no relief may repeat 1 tab after at least 2 hrs; max = 3 tabs/24 hr PO HPI Comments Details: 74 year old woman s/p panniculectomy and bilateral brachioplasty 02/20/2025. 6 weeks postop. s/p LSG 06/16/2023 VNA for dressing changes. Drain was removed postop week 3. No fevers at home. Compliant with abd binder. Compliant with meal plan. [facility] Medical History Insomnia PONV (postoperative nausea and vomiting) GERD (gastroesophageal reflux disease) Oropharyngeal dysphagia Gastritis Migraines Dyslipidemia Hypothyroidism Osteoporosis Anxiety Essential hypertension Surgical History S/P brachioplasty S/P panniculectomy History of esophagogastroduodenoscopy (EGD) H/O colonoscopy History of sleeve gastrectomy History of shoulder surgery History of section History of nasal surgery History of surgery History of carpal tunnel surgery History of neck surgery Family History Father Cancer of prostate Mother HTN (hypertension) Maternal Grandmother Stroke Asthma Brother Substance use disorder Social History Household Members: Spouse Caregiver staying overnight: No Housing: Apartment Are you a primary critical care registered nurse to a significant other at home: No Do you presently have 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 or other home services: Yes (MEDICAL INSURANCE CODING SPECIALIST) 75 years or older and lives alone: No Alcohol intake: never Patient Tobacco Use Status: Former Tobacco user Tobacco use type: Cigarette e-Cigarette/Vaping Use: Never Used Second Hand Smoke Exposure: No service: No Current occupational status: retired Cognitive needs: No Hearing needs: No Vision needs: No Physical Exam Vital Signs: Last Vital Signs Temp 97.2 F 04/02/25 10:29 Pulse 69 04/02/25 10:29 BP 148/89 H 04/02/25 10:29 Pulse Ox 98 04/02/25 10:29 Oxygen Delivery Method Room Air 04/02/25 10:29 BMI result Body Mass Index 25.5 Const General: cooperative, comfortable and no acute distress Orientation/consciousness: patient oriented x3 GI Other: soft, nontender, nondistended, incisions healing well without open areas, no swelling of abdomen Skin Other: brachioplasty incisions healing well Neuro General: patient oriented x3 Assessment & Plan Assessment & Plan (1) S/P laparoscopic sleeve gastrectomy: Comment: june 2023 Code(s): Z98.84 - Bariatric surgery status Category: Surgical (2) S/P panniculectomy: Code(s): Z98.890 - Other specified postprocedural states Category: Surgical (3) S/P brachioplasty: Code(s): Z98.890 - Other specified postprocedural states Category: Surgical (4) Overweight: Code(s): E66.3 - Overweight Category: Medical Plan Continue high protein diet. Abdominal binder at all times, pt has transitioned to a softer binder with adequate compression. May begin walking or gentle cardio for exercise. No lifting greater than 10 pounds x 2 months and no abdominal exercises x 3 months. RTC in June for annual.
[2025-04-02 10:29] VITALS: BP 148/89; PULSE 69; TEMP 36.2; O2SAT 98; BMI 25.5
--- OUTSIDE RECORDS SUMMARY | 2025-04-02 11:42 | XMS_ITS | Encounter Summary ---
Author Organization [facility] Address [address] [place] [address] Phone Care Team Providers Care Tax Adjuster Name Role Phone Addi Holland NP Primary Care Provider + Encounter Details Date Type Department Care Team (Late st Contact Info) Description 11/02/2023 Procedure Pass [facility] Endoscopy Admitting Dept Virtual Department [address] [place] [phone] Social History Tobacco Use Types Packs/Day Years [...] on filedocumented in this encounter Care Teams Tax Adjuster Relationship Specialty Start Date End Date Addi Holland NP [address] [facility] [place] [address] PCP - General Nurse Practitioner 02/17/23 documented as of this encounter Additional Source Comments The information contained in this document represents components of the legal health record. It is not the complete legal health record.[facility]
--- OUTSIDE RECORDS SUMMARY | 2025-04-02 11:43 | XMS_ITS | Encounter Summary ---
Author Organization [facility] Address [address] [place] [address] Phone Care Team Providers Care Sports Physiotherapist Name Role Phone Addi Holland NP Primary Care Provider + Encounter Details Date Type Department Care Team (Late st Contact Info) Description 03/08/2023 Procedure Pass [facility] Endoscopy Admitting Dept Virtual Department [address] [place] [phone] Social History Tobacco Use Types Packs/Day Years [...] on filedocumented in this encounter Care Teams Sports Physiotherapist Relationship Specialty Start Date End Date Addi Holland NP [address] [facility] [place] [address] PCP - General Nurse Practitioner 02/17/23 documented as of this encounter Additional Source Comments The information contained in this document represents components of the legal health record. It is not the complete legal health record.[facility]
--- OUTSIDE RECORDS SUMMARY | 2025-04-02 11:43 | XMS_ITS | Clinical Summary ---
Author Organization [facility] Address [address] [place] [address] Phone Care Team Providers Care Bond Analyst Name Role Phone Addi Holland NP Primary [...] TUNNEL REL UPPER GASTROINTESTINAL ENDOSCOPY 08/18/2016 PROCEDURE: [place] UPPER GI ENDOSCOPY PERFORMED; COMMENT: Erosive gastritis, [...] for your loved ones. For example, child welfare specialist or elderly care for an older [...] on file Sexual Orientation Not on file Last Filed Vital Signs Vital Sign Reading [...] Done Comments Colorectal Cancer Screening: Colonoscopy 1950 Non-Opioid Controlled Substance Agreement 1950 DTaP,Tdap,and Td Vaccines (1 - Tdap) 08/19/1970 RSV Immunization Adult Patients (1 - Risk 50-74 years 1-dose series) 08/19/2001 Zoster Vaccines (3 of 3) 05/12/2019 03/17/2019, 0307/2015 Breast Cancer Screening 06/27/2021 06/28/2019, 12/31 Hepatitis C Screening 03/15/2022 Medicare Annual Wellness Visit 03/15/2022 Depression Screening 04/12/2024 COVID-19 Vaccine ( season) 2024 03/21/2021, 09/03/2020, 08/13/2020 Influenza Vaccine (#1) 2024 , 12/28/2019, 02/24/2018, Additional history exists Social Influencers of Health Screening 09/26/2025 09/26/2024 Drug Screen 09/27/2025 09/27/2024 Falls Risk Assessment 09/29/2025 09/29/2024 Hypertension/CHF/CAD Annual [...] METABOLIC PANEL Routine 09/29/2024 5:58 AM EDT DRUG ABUSE SCREEN 8A PANEL, URINE Routine 09/27/2024 4:23 PM EDT LIPID PANEL WITH REFLEX TO DIRECT LDL Add-On 09/27/2024 10:20 AM EDT SCR MAMMO BI INCL CAD Routine 06/28/2019 8:17 AM EDT Encounter for other screening for malignant neoplasm of breast [facility] DEXA AXIAL SKELETON Routine 06/22/2017 1:56 PM EDT Asymptomatic menopausal state from Last 3 Months or Most Recently Relevant to Health Maintenance Results * (ABNORMAL) Basic metabolic panel (09/29/2024 5:58 AM EDT) Sodium 137 133 - 145 mmol/L LAB CHEMISTRY METHOD 09/29/2024 7:05 AM [facility] Potassium 4.3 3.5 - 5.5 mmol/L LAB CHEMISTRY METHOD 09/29/2024 7:05 AM [facility] Chloride 100 96 - 110 mmol/L LAB CHEMISTRY METHOD 09/29/2024 7:05 AM [facility] CO2 33(H) 21 - 32 mmol/L LAB CHEMISTRY METHOD 09/29/2024 7:05 AM [facility] Anion Gap 4 3 - 11 LAB CHEMISTRY METHOD 09/29/2024 7:05 AM [facility] Glucose 101(H) 70 - 100 mg/dL LAB CHEMISTRY METHOD 09/29/2024 7:05 AM [facility] BUN 17 5 - 25 mg/dL LAB CHEMISTRY METHOD 09/29/2024 7:05 AM [facility] Creatinine 0.76 0.50 - 1.10 mg/dL LAB CHEMISTRY METHOD 09/29/2024 7:05 AM [facility] eGFR 83 >=60 mL/min/1. 73m2 LAB CHEMISTRY METHOD 09/29/2024 7:05 AM [facility] Comment:Calculation based on the Chronic Kidney Disease Epidemiology Collaboration (CKD-EPI) equation refit without adjustment for race. BUN/Creatinine Ratio 22.4 LAB CHEMISTRY METHOD 09/29/2024 7:05 AM [facility] Calcium 9.2 8.5 - 10.5 mg/dL LAB CHEMISTRY METHOD 09/29/2024 7:05 AM EDT [facility] Blood Venous blood specimen / Unknown Venipuncture / Unknown 09/29/2024 5:58 AM EDT 09/29/2024 6:12 AM EDT Katelyn VIDAL LAB BLOOD ORDERABLES Hoa l Result [facility] [address] [place] [address], * (ABNORMAL) Drug abuse screen 8a panel, urine (09/27/2024 4:23 PM EDT) [facility] Amphetamine Screen, Ur Negative Negative LAB CHEMISTRY METHOD 5 7:18 PM EDT [facility] Comment:Certain OTC medicati ons containing ephedrine, phenylephrine, pseudoephedrine and phenylpropanolamine can cause false positive results. Barbiturate Screen, Ur Negative Negative LAB CHEMISTRY METHOD 5 7:18 PM EDT [facility] Benzodiazepine Screen, Ur Negative Negative LAB CHEMISTRY METHOD 5 7:18 PM EDT [facility] Cocaine Screen, Ur Negative Negative LAB CHEMISTRY METHOD 5 7:18 PM EDT [facility] Opiate Screen, Ur Positive(A ) Negative LAB CHEMISTRY METHOD 5 7:18 PM EDT [facility] Cannabinoid (THC) Screen, Ur Negative Negative LAB CHEMISTRY METHOD 5 7:18 PM EDT [facility] Comment:Specimens from patie nts taking pantoprazole sodium (Protonix) have been shown to produce false positive results. Oxycodone Screen, Ur Negative Negative LAB CHEMISTRY METHOD 5 7:18 PM EDT [facility] Fentanyl, Ur Negative Negative LAB CHEMISTRY METHOD 5 7:18 PM EDT [facility] Urine Urine specimen obtained by clean catch procedure / Unknown Non-blood Collection / Unknown 09/27/2024 4:23 PM EDT 09/27/2024 6:30 PM EDT Narrative [facility] - 09/27/2024 7:18 [...] VIDAL LAB URINE ORDERABLES Hoa chavez Result [facility] [address] [place] [address], [place] [phone] * (ABNORMAL) Lipid panel with reflex to direct LDL (09/27/2024 10:20 AM EDT) Cholesterol 234(H) 0 - 200 mg/dL LAB CHEMISTRY METHOD 09/27/2024 12:46 PM EDT [facility] Triglycerides 71 0 - 150 mg/dL LAB CHEMISTRY METHOD 09/27/2024 12:46 PM EDT [facility] HDL 79 >=40 mg/dL LAB CHEMISTRY METHOD 09/27/2024 12:46 PM EDT [facility] LDL Calculated 141(H) 0 - 100 mg/dL LAB CHEMISTRY METHOD 09/27/2024 12:46 PM EDT [facility] VLDL Cholesterol Koby 14.2 mg/dL LAB CHEMISTRY METHOD 09/27/2024 12:46 PM EDT [facility] Non HDL Chol. (LDL+VLDL) 155(H) <145 mg/dL LAB CHEMISTRY METHOD 09/27/2024 12:46 PM EDT [facility] Chol/HDL Ratio 3.0 0.0 - 4.4 LAB CHEMISTRY METHOD 09/27/2024 12:46 PM EDT [facility] Blood Venous blood specimen / Unknown Venipuncture / Unknown 09/27/2024 10:20 AM EDT 09/27/2024 10:25 AM EDT Katelyn VIDAL LAB BLOOD ORDERABLES Hoa chavez Result [facility]) [facility] [address] [place] [address], [place] [phone] * SCR MAMMO BI INCL CAD (06/28/2019 [...] IMG XR PROCEDURES Final Resu lt * [facility] DEXA AXIAL SKELETON (06/22/2017 1:56 PM EDT) Anatomical Region Laterality Modality Mammography 06/22/2017 7:08 AM EDT Narrative 06/22/2017 1:56 PM EDT [facility] Diagnostic Imaging Department [address] [place], [place] [id number] Patient: EDUARDO ENGEL /Age/Sex: 1950 - 66 - F Unit#: [id number] Location/Status: SPDIMAM/REG CLI Mnemonic[facility] Ordering Physician: LITA TORRES MD [facility] Dexa Axial Skeleton - 06/22/17729 [facility] Dexa Axial Skeleton INDICATION: POST MENOPAUSE [...] placing the patient at risk for fracture. [id number] A report detailing these results has been enclosed. Dictating Physician: BEN FREDERICK MD Electronically Signed by: BEN FREDERICK MD Dic Date/Time: 06/22/17 1354 Sign date/Time: 06/22/17 1356 Procedure Note Ben Frederick MD - 03/31/2022 [facility] Diagnostic Imaging Department [address] [place] [address] Patient: MCKENZIE EDUARDO NAGY D.O.B./Age/Sex: 1950 - 66 -F Unit#: [id number] Location/Status: [facility]/REG CLI Mnemonic/[facility] Ordering Physician: LITA TORRES MD [facility] Dexa Axial Skeleton - 06/22/17729 [facility] Dexa Axial Skeleton INDICATION: POST MENOPAUSE Technique: Bone densitometry was performed utilizing dual energy x-ray absorptiometry (DEXA). The lumbar spine is evaluated in the AP projectionfrom L1 through L4. The proximal femora are evaluated in the AP projection bilaterally. [facility] Findings: AP spine: Bone mineral density: 0.983 gm/cm2 T-score: -1.5 Femoral total (mean, bilateral): Bone mineral density: 0.704 gm/cm2 T-score: -2.4 Left femoral neck: Bone mineral density: 0.618 gm/cm2 T-score: -3.0 IMPRESSION: Findings suggesting osteoporosis, placing the patient at risk forfracture. [id number] A report detailing these results has been enclosed. Dictating Physician: BEN FREDERICK MD Electronically Signed by: BEN FREDERICK MD Dic Date/Time: 06/22/17 1354 Sign date/Time: 06/22/17 1356 Lita Torres MD IMG BI PROCEDURES Final Resu lt from Last 3 Months or Most Recently Relevant to Health Maintenance Insurance [employer] MEDICARE Member Subscriber Plan / Payer (Ef fective 2024-Present) Name:EDUARDO MCKENZIE Relation to Subscriber:Self Name:Mckenzie Eduardo Nagy Payer ID:[id number] Group ID:[id number] Type:Not on file Address: [place] [address] [place] [id number] Advance Directives * Full Code - Default [...] currently active code status orders. Care Teams Bond Analyst Relationship Specialty Start Date End Date Addi Holland NP [address] [facility] [place] PCP - General Family Medicine 03/04/21
--- OUTSIDE RECORDS SUMMARY | 2025-04-02 11:43 | XMS_ITS | Clinical Summary ---
Author Organization [facility] Address [address] [address] Phone Care Team Providers Care Premix Concrete Batcher Name Role Phone Addi Holland NP Primary [...] MEDICARE REPLACEMENT MEDICARE PART A & B [address] [place], [place] [address] MEDICARE REPLACEMENT MEDICARE PART A & B MEDICARE PART A & B Member Subscriber Plan / Payer (Ef fective 2023-Present) Name:Marie Mckenzie Member ID:[id number] Relation to Subscriber:Self Name:Marie Mckenzie Subscriber ID:[id number] Payer ID:[id number] Group ID:Not on file Type:Medicare Address: AgentPair [facility] [address] [address] MEDICARE PART A & B [facility] SCO MEDICARE REPLACEMENT [place] [id number] MEDICARE PART A & B Care Teams Premix Concrete Batcher Relationship Specialty Start Date End Date Addi Holland NP [address] [facility] [place] [address] PCP - General Nurse Practitioner 02/17/23 Additional Source Comments The information contained in this document represents components of the legal health record. It is not the complete legal health record.[facility]
--- OUTSIDE RECORDS SUMMARY | 2025-04-02 11:43 | XMS_ITS | Encounter Summary ---
Author Organization [facility] Address [address] [place] [address] Phone Care Team Providers Care Burlap Roll Coverer Name Role Phone Addi Holland NP Primary Care Provider + Encounter Details Date Type Department Care Team (Late st Contact Info) Description 03/01/2023 Procedure Pass [facility] Endoscopy Admitting Dept Virtual Department [address] [place] [address] Social History Tobacco Use Types Packs/Day Years [...] on filedocumented in this encounter Care Teams Burlap Roll Coverer Relationship Specialty Start Date End Date Addi Holland NP [address] [facility] [place] [address] PCP - General Nurse Practitioner 02/17/23 documented as of this encounter Additional Source Comments The information contained in this document represents components of the legal health record. It is not the complete legal health record.[facility]
== END 2025-04-02 10:49 | disposition home or self-care (01) ==
LOC: HO.HBS 09:55
PROVIDERS: PCP Nurse Practitioner Family; Visit Provider Physician Assistant Surgical
DX: E66.3 Overweight (principal); Z68.25 Body mass index [BMI] 25.0-25.9, adult; Z98.84 Bariatric surgery status; Z98.890 Other specified postprocedural states
CPT/HCPCS: 99024

== ENCOUNTER → 2025-04-02 09:54 | Outpatient (BNVA) | payer OTHER, SELFPAY | PROVIDERS: PCP Nurse Practitioner Family; Visit Provider Physician Assistant Surgical | DX: Z48.815 Encounter for surgical aftercare following surgery on the digestive system (principal); Z98.890 Other specified postprocedural states; Z98.84 Bariatric surgery status; E66.3 Overweight; Z68.25 Body mass index [BMI] 25.0-25.9, adult | CPT/HCPCS: 99212 ==